=== PATIENT | female | born 2000 | race Caucasian/White ===

== ENCOUNTER 2023-01-21 11:29 | Emergency (ER) | payer OTHER, SELFPAY ==
[2023-01-21 11:42] VITALS: BP 116/69; PULSE 79; RESP 16; TEMP 36.9; O2SAT 99; BMI 20.2
--- NOTE | 2023-01-21 11:45 | ED.GENADUL1 ---
HPI - General Adult General Chief complaint: Abdominal Pain Stated complaint: FLANK PAIN Time Seen by Provider: 01/21/23 11:45 History of Present Illness HPI narrative: Patient presents to emergency department complaining of right suprapubic pain. Patient states pain started earlier today while she was at work. She had to work. She has a history of ovarian cysts are clear removed by Dr. Gold. Patient is on control. She states her last menses was 2 weeks ago. She denies any fever, chills. She states she was nauseated. She has not taking anything at home for the pain. Pain is sharp and does not radiate anywhere. She denies any diarrhea, constipation. She denies any hematuria, dysuria. She denies any vaginal bleeding, discharge. Related Data Home Medications Medication Instructions Recorded Confirmed No Known Home Medications 01/21/23 01/21/23 Allergies Allergy/AdvReac Type Severity Reaction Status Date / Time Penicillins Allergy Verified 01/21/23 11:42 Review of Systems ROS Status of ROS 10 or more systems reviewed and unremarkable except as noted in history and below [facility] Social History Smoking status: Never smoker Exam Narrative Exam Narrative: Nurses notes and vital signs reviewed and patient is not hypoxic. General: Nontoxic, Well-appearing and in no apparent distress. Skin: Warm, dry, no pallor noted. No Rash Head: Normocephalic, atraumatic. Neck: Supple, non-tender. Eye: Pupils are equal, round and EOMI. No scleral icterus. Ears, Nose, Mouth, and Throat: TM clear, no posterior oropharynx erythema or nasal mucosal hypertrophy, uvula is mid-line Oral mucosa is moist Cardiovascular: Regular Rate and Rhythm without murmur, gallop or rub. Respiratory: No accessory muscle use or respiratory distress. Lungs are clear to auscultation, no wheezing, rales or rhonchi Chest Wall: no tenderness Back: No midline thoracic or lumbar vertebral tenderness. No CVA tenderness Musculoskeletal: normal ROM, no calf or popliteal tenderness, no lower extremity edema/swelling GI: Abdomen is soft, non-distended. Normal bowel sounds. No masses appreciated. Right lower quadrant and suprapubic tenderness to palpation. No rebound, guarding, or rigidity noted. Neurological: A&O x4. No cranial nerve dysfunction observed. No truncal ataxia. Moves all extremities. Sensation intact. Psychiatric: Cooperative and interactive. Normal mood and affect. Constitutional Vital Signs, click to edit/add: Last Vital Signs Temp 98.5 F 01/21/23 11:42 Pulse 87 01/21/23 14:59 Resp 14 01/21/23 14:59 BP 117/66 01/21/23 14:59 Pulse Ox 98 01/21/23 14:59 O2 Del Method Room Air 01/21/23 14:59 Course Vital Signs Vital signs: Vital Signs Temperature 98.5 F 01/21/23 11:42 Pulse Rate 79 01/21/23 11:42 Respiratory Rate 16 01/21/23 11:42 Blood Pressure 116/69 01/21/23 11:42 Pulse Oximetry 99 01/21/23 11:42 Oxygen Delivery Method Room Air 01/21/23 11:42 Temperature 98.5 F 01/21/23 11:42 Pulse Rate 87 01/21/23 14:59 Respiratory Rate 14 01/21/23 14:59 Blood Pressure 117/66 01/21/23 14:59 Pulse Oximetry 98 01/21/23 14:59 Oxygen Delivery Method Room Air 01/21/23 14:59 Medical Decision Making MDM Narrative Medical decision making narrative: Patient's had an ultrasound of the pelvis did not show anything acute. Kidney ultrasound did not show anything acute. Patient was reevaluated and all results were discussed with patient she was still significantly tender to the right lower quadrant. Advised the patient that at this time since she still having a lot of pain would have to do a CAT scan to exclude appendicitis. Patient was with her mom on the phone to agrees with plan. Scan results were unremarkable except for small amount of fluid in the posterior pelvis. At this time the patient is without objective evidence of an acute process requiring hospitalization or inpatient management. The patient has remained hemodynamically stable. No additional indication for emergent studies at this time. I answered all questions. Discussed discharge instructions including standard anticipatory guidance and what should prompt a return to the emergency department, including if they get worse are not getting better or develops any new or concerning symptoms. I've given them specific time frame in which to follow-up, and who to follow-up with. The patient demonstrates understanding. Patient is nontoxic and stable for discharge with outpatient follow-up. This note was created with the assistance of a speech recognition program. Although the intention is to generate documents that actually reflects the content of the visit, no guarantees can be provided that every mistake has been identified and corrected by editing. Lab Data Lab results reviewed: Yes I reviewed the patient's lab results Labs: Lab Results 01/21/23 01/21/23 Range/Units 11:55 13:45 WBC 6.3 (4.0-11.0) 10^3/uL RBC 4.25 (4.20-5.40) 10^6/uL Hgb 13.4 (12.0-16.0) g/dL Hct 38.6 (36.0-48.0) % MCV 90.8 (81.0-99.0) fL MCH 31.5 (26.7-34.0) pg MCHC 34.7 (29.9-35.2) g/dL RDW 11.7 (11.0-15.0) % Plt Count 338 (150-450) 10^3/uL MPV 8.8 L (9.5-13.5) fL Neut % (Auto) 57.6 (43.0-75.0) % Lymph % (Auto) 27.7 (20.5-60.0) % Keith % (Auto) 7.8 (1.7-12.0) % Eos % (Auto) 6.2 (0.9-7.0) % Baso % (Auto) 0.5 (0.2-2.0) % Neut # (Auto) 3.6 (1.4-6.5) 10^3/uL Lymph # (Auto) 1.8 (1.2-3.8) 10^3/uL Keith # (Auto) 0.5 (0.3-0.8) 10^3/uL Eos # (Auto) 0.4 (0.0-0.7) 10^3/uL Baso # (Auto) 0.0 (0.0-0.1) 10^3/uL Abs Immat Gran (auto) 0.01 (0.00-0.03) 10^3/uL Imm/Tot Granulo (auto) 0.2 (0.0-0.5) % Sodium 139 (136-145) mmol/L Potassium 4.2 (3.5-5.1) mmol/L Chloride 104 (98-107) mmol/L Carbon Dioxide 27.3 (21.0-32.0) mmol/L Anion Gap 11.9 BUN 10.0 (7.0-18.0) mg/dL Creatinine 0.59 (0.55-1.02) mg/dL Est GFR ( Amer) >60 (>=60) Est GFR (Non-Af Amer) >60 (>=60) BUN/Creatinine Ratio 16.9 Glucose 87 (74-106) mg/dL Calcium 8.6 (8.5-10.1) mg/dL Total Bilirubin 0.6 (0.2-1.0) mg/dL AST 20 (15-37) U/L ALT 19 (14-59) U/L Alkaline Phosphatase 47 (46-116) U/L Total Protein 6.8 (6.4-8.2) g/dL Albumin 4.0 (3.4-5.0) g/dL Globulin 2.8 g/dL Albumin/Globulin Ratio 1.4 Urine Color Lt. yellow (YELLOW) Urine Clarity Clear (CLEAR) Urine pH 7.0 (5.0-9.0) Ur Specific [place] 1.010 (1.005-1.025) Urine Protein Negative (NEG/TRACE) mg/dL Urine Glucose (UA) Negative (NEGATIVE) mg/dL Urine Ketones Trace A (NEGATIVE) mg/dL Urine Occult Blood Negative (NEGATIVE) Urine Nitrite Negative (NEGATIVE) Urine Bilirubin Negative (NEGATIVE) Urine Urobilinogen 0.2 (0.2-1.0) EU/dL Ur Leukocyte Esterase Negative (NEGATIVE) Discharge Plan Discharge Chief Complaint: Abdominal Pain Clinical Impression: Ovarian cyst rupture, Abdominal pain Patient Disposition: Home, Self-Care Time of Disposition Decision: 14:43 Condition: Good Mode of Transportation: Private Vehicle Prescriptions / Home Meds: No Action No Known Home Medications Instructions: Ovarian Cyst (ED), Abdominal Pain (ED) Stand Alone Forms: Portal Instructions Referrals: Dmitri Gold DO [Physician] - 1 week Todd José MD [Primary Care Provider] - 1 week Discharge Date/Time: 01/21/23 15:06
--- NOTE | 2023-01-21 12:06 | US_ITS ---
The [address] [address] Patient Name: GONZALEZ SHANKAR MRN: [id number] date: 2000 Sex: F Assigned Patient Location: ED.MAIN Current Patient Location: ER Accession/Order Number: [id number] Exam Date: 01/21/2023 12:07 Report Date: 01/21/2023 13:05 At the request of: DEMARCO DON Procedure: US renal BI EXAMINATION: US renal BI HISTORY: flank pain COMPARISON: No relevant comparison available. TECHNIQUE: Ultrasound examination was performed of the kidneys and urinary bladder. FINDINGS: RIGHT KIDNEY: No evidence of pelvocaliectasis, mass, or calculi. Normal renal cortical parenchymal echogenicity. Color Doppler demonstrates blood flow within the kidney. Kidney: 10.3 x 4.3 x 3.7 cm LEFT KIDNEY: No evidence of pelvocaliectasis, mass, or calculi. Normal renal cortical parenchymal echogenicity. Color Doppler demonstrates blood flow within the kidney. Kidney: 10.2 x 4.4 x 4.3 cm BLADDER: No visible wall thickening, mass, or calculi. US/US renal BI IMPRESSION: 1. Normal ultrasound appearance of the kidneys and urinary bladder. Electronically authenticated by: SULY ANDERSON Date: 01/21/2023 13:05
--- NOTE | 2023-01-21 12:06 | US_ITS ---
[place] [id number] Patient Name: GONZALEZ SHANKAR MRN: [id number] date: 2000 Sex: F Assigned Patient Location: ED.MAIN Current Patient Location: ER Accession/Order Number: [id number] Exam Date: 01/21/2023 12:07 Report Date: 01/21/2023 13:07 At the request of: DEMARCO DON Procedure: US pelvis transvaginal EXAMINATION: US pelvis transvaginal HISTORY: rlq pain, ro torsion COMPARISON: No relevant comparison available. TECHNIQUE: Transabdominal and/or transvaginal sonographic examination was performed as indicated by examination type. FINDINGS: UTERUS: Normal size and appearance. Uterus size: 8.8 x 3.9 x 5.1 cm ENDOMETRIUM: Normal homogeneous appearance. Endometrial thickness: 5 mm RIGHT OVARY: Oophorectomy. LEFT OVARY: Normal size and appearance. Duplex Doppler demonstrates normal waveform and flow; resistive index 0.7. Normal venous flow, 3.5 mm/s. Ovary size: 2.5 x 2.4 x 2.1 cm CUL-DE-SAC: Unremarkable. No significant free fluid. BLADDER: Unremarkable. OTHER: None. US/US pelvis transvaginal IMPRESSION: 1. No acute or suspicious findings to account for patient's right lower quadrant symptoms. 2. No ovarian torsion. Electronically authenticated by: SULY ANDERSON Date: 01/21/2023 13:07
[2023-01-21 12:20] LABS: Basophils Percent Auto 0.5 % (0.2-2.0); Eosinophils Absolute Auto 0.4 10^3/uL (0.0-0.7); Eosinophils Percent Auto 6.2 % (0.9-7.0); Hematocrit 38.6 % (36.0-48.0); Hemoglobin 13.4 g/dL (12.0-16.0); Immature Granulocytes Abs Auto 0.01 10^3/uL (0.00-0.03); Immature Granulocytes Pct Auto 0.2 % (0.0-0.5); Lymphocytes Absolute Auto 1.8 10^3/uL (1.2-3.8); Lymphocytes Percent Auto 27.7 % (20.5-60.0); Mean Corpuscular HGB Conc 34.7 g/dL (29.9-35.2); Mean Corpuscular Hemoglobin 31.5 pg (26.7-34.0); Mean Corpuscular Volume 90.8 fL (81.0-99.0); Mean Platelet Volume 8.8 fL (9.5-13.5); Monocytes Absolute Auto 0.5 10^3/uL (0.3-0.8); Monocytes Percent Auto 7.8 % (1.7-12.0); Neutrophils Absolute Auto 3.6 10^3/uL (1.4-6.5); Neutrophils Percent Auto 57.6 % (43.0-75.0); Platelet Count 338 10^3/uL (150-450); Red Blood Count 4.25 10^6/uL (4.20-5.40); Red Cell Distribution Width 11.7 % (11.0-15.0); White Blood Count 6.3 10^3/uL (4.0-11.0)
[2023-01-21 12:24] LABS: Alanine Aminotransferase 19 U/L (14-59); Albumin Globulin Ratio 1.4; Alkaline Phosphatase 47 U/L (46-116); Anion Gap 11.9; Aspartate Amino Transferase 20 U/L (15-37); BUN Creatinine Ratio 16.9; Bilirubin Total 0.6 mg/dL (0.2-1.0); Calcium 8.6 mg/dL (8.5-10.1); Carbon Dioxide 27.3 mmol/L (21.0-32.0); Chloride 104 mmol/L (98-107); Estimated GFR (African America >60 (>=60); Estimated GFR (Non-African Ame >60 (>=60); Globulin 2.8 g/dL; Glucose 87 mg/dL (74-106); Potassium 4.2 mmol/L (3.5-5.1); Sodium 139 mmol/L (136-145); Total Protein 6.8 g/dL (6.4-8.2)
[2023-01-21] MEDS: 0.9 % SODIUM CHLORIDE 1,000 ML 999 ML IV (12:24)
--- NOTE | 2023-01-21 13:21 | CT_ITS ---
[address] [address] Patient Name: GONZALEZ SHANKAR MRN: [id number] date: 2000 Sex: F Assigned Patient Location: ER Current Patient Location: .[facility] Accession/Order Number: [id number] Exam Date: 01/21/2023 13:50 Report Date: 01/21/2023 14:29 At the request of: DEMARCO DON Procedure: CT abdomen pelvis w con EXAMINATION: CT abdomen pelvis w con HISTORY: rlq pain , flank pain COMPARISON: Ultrasound pelvis 01/21/2023, ultrasound kidneys 01/21/2023 TECHNIQUE: Axial, Coronal, and Sagittal images were obtained without and/or with IV contrast as indicated by examination type. Dose reduction techniques were achieved by using automated exposure control and/or adjustment of mA and/or kV according to patient size and/or use of iterative reconstruction technique. FINDINGS: LUNG BASES: No visible pulmonary or pleural disease. LIVER: No enlargement, atrophy, suspicious density, or significant focal lesion. BILIARY: No dilatation or calcification. PANCREAS: No lesion, fluid collection, or abnormal duct dilatation. SPLEEN: No enlargement or focal lesion. ADRENALS: No mass or enlargement. KIDNEYS: No mass, obstruction, or calcification. BOWEL/MESENTERY: No visible mass, obstruction, or bowel wall thickening. Normal appendix. AORTA/VASCULAR: No aneurysm or dissection. RETROPERITONEUM: No mass or adenopathy. LYMPH NODES: No adenopathy. URINARY BLADDER: No visible focal wall thickening, lesion, or calculus. PELVIC ORGANS: IUD within endometrial cavity. Trace amount simple appearing free fluid within right side of the pelvic cul-de-sac; likely physiologic. No visible mass. Pelvic organs appropriate for patient age. ABDOMINAL WALL: No mass or hernia. BONES: No bony lesion or fracture. OTHER: Negative. CT/CT abdomen pelvis w con IMPRESSION: 1.No acute or specific findings to account for patient's symptoms. 2.Normal appendix. Unremarkable bowel. 3.Trace amount of simple appearing free fluid within right side of the pelvic cul-de-sac; possibly recently ruptured ovarian cyst. Electronically authenticated by: SULY ANDERSON Date: 01/21/2023 14:29
[2023-01-21 14:52] LABS: Bilirubin Urine NEGATIVE (NEGATIVE); Blood Urine NEGATIVE (NEGATIVE); Clarity Urine CLEAR (CLEAR); Color Urine LT. YELLOW (YELLOW); Glucose Urine UA NEGATIVE (NEGATIVE); Ketones Urine TRACE mg/dL (NEGATIVE); Leukocyte Esterase Urine NEGATIVE (NEGATIVE); Nitrite Urine NEGATIVE (NEGATIVE); Protein Urine NEGATIVE (NEG/TRACE); Urobilinogen Urine 0.2 EU/dL (0.2-1.0)
[2023-01-21 14:53] LABS: Urine Microscopic Indicated NO
[2023-01-21 14:59] VITALS: BP 117/66; PULSE 87; RESP 14; O2SAT 98
== END 2023-01-21 15:06 | disposition home or self-care (01) ==
PROVIDERS: Emergency Provider Emergency Medicine; PCP Family Medicine
DX: R10.9 Unspecified abdominal pain (principal); N83.201 Unspecified ovarian cyst, right side
CPT/HCPCS: 36415; 74177; 76775; 76830; 80053; 81003; 85025; 99285; Q9967

== ENCOUNTER 2023-06-20 10:50 | Emergency (ER) | payer OTHER, SELFPAY ==
[2023-06-20 10:56] VITALS: BP 98/58; PULSE 79; RESP 18; TEMP 36.6; O2SAT 100
--- NOTE | 2023-06-20 11:28 | ECG_ITS ---
The [facility] Test Date: 2023-06-20 Pat Name: GONZALEZ SHANKAR Department: Room: - Gender: Female [employer]: : 2000 Requested By: DANILO DINERO Order Number: [id number] Reading MD: DANILO DINERO Measurements Intervals [place] Rate: 75 P: 72 KS: 128 QRS: 87 QRSD: 88 T: 40 QT: 378 QTc: 407 Interpretive Statements 1100 Sinus rhythm 1102 Sinus arrhythmia 9110 normal ECG Compared to ECG 05/12/2019 00:39:59 Right-axis deviation no longer present Electronically Signed On 06-21-2023 5:31:25 EST by DANILO DINERO
--- NOTE | 2023-06-20 11:31 | ED_ITS ---
HPI - Syncope General Chief Complaint: Syncope Stated Complaint: SYNCOPE Time Seen by Provider: 06/20/23 11:24 Source: patient Mode of arrival: ambulance Limitations: no limitations History of Present Illness HPI narrative: patient here for a syncopal episode at work. She says she felt fine when she went to work. This is not her 1st event. 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 However she's not been taking her meds because he didn't work and she's not been on them for several years. Normally she stays hydrated throughout the day with Gatorade but she did not take it to work today. Over the weekend she felt fine she's not had nausea vomiting diarrhea or upset stomach. 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 She did not have any incontinence to urine and did not bite her tongue today. She has not been confused. She is placed on a monitor and vital signs are noted. She says normally her blood pressure systolic is in the 80s or low 90s. She does not feel bad at this time. She's not had a headache any neck pain she didn't injure herself when she passed out at work. He is not on any new medications. She does take a vitamin for her hair and her fingernails. Related Data Home Medications Medication Instructions Recorded Confirmed No Known Home Medications 01/21/23 01/21/23 Allergies Allergy/AdvReac Type Severity Reaction Status Date / Time Penicillins Allergy Verified 01/21/23 11:42 [facility] Social History Smoking status: Never smoker Exam Narrative Exam Narrative: patient awake alert normal cognition and mental status. Does not appear ill vital signs are stable. Skin integument are normal with no petechiae purpura or rash or exanthem. I examination does not show any scleral icterus or pallor or evidence of anemia. Lungs are clear with no wheezes rales or rhonchi there is no respiratory distress or cough or congestion. Heart sounds are normal with no clicks rubs gallops or murmur. Extremities show no evidence of swelling edema phlebitis or tenderness. Abdominal examination soft and supple she has no guarding rebound rigidity and has no abdominal discomfort. Constitutional Vital Signs, click to edit/add: Last Vital Signs Temp 97.8 F 06/20/23 10:56 Pulse 78 06/20/23 12:15 Resp 18 06/20/23 10:56 BP 96/56 06/20/23 12:15 Pulse Ox 100 06/20/23 10:56 O2 Del Method Room Air 06/20/23 10:56 Course Vital Signs Vital signs: Vital Signs Temperature 97.8 F 06/20/23 10:56 Pulse Rate 79 06/20/23 10:56 Respiratory Rate 18 06/20/23 10:56 Blood Pressure 98/58 06/20/23 10:56 Pulse Oximetry 100 06/20/23 10:56 Oxygen Delivery Method Room Air 06/20/23 10:56 Temperature 97.8 F 06/20/23 10:56 Pulse Rate 78 06/20/23 12:15 Respiratory Rate 18 06/20/23 10:56 Blood Pressure 96/56 06/20/23 12:15 Pulse Oximetry 100 06/20/23 10:56 Oxygen Delivery Method Room Air 06/20/23 10:56 MDM - Syncope MDM Narrative Medical decision making narrative: patient remained stable while here in the Emergency Room. Before discharge orthostatic vital signs were done and were normal. I do not believe she needs an y laboratory testing at this time. Her clinical examination was normal. She did take by mouth fluids. Discharge Plan Discharge Chief Complaint: Syncope Clinical Impression: Chronic orthostatic hypotension Patient Disposition: Home, Self-Care Time of Disposition Decision: 12:17 Prescriptions / Home Meds: No Action No Known Home Medications Additional Instructions: continue to take additional fluids today. Stand Alone Forms: Portal Instructions Referrals: Todd José MD [Primary Care Provider] - 1 week
[2023-06-20 12:15] VITALS: BP 100/64; BP 102/59; BP 96/56; PULSE 71; PULSE 78; PULSE 80
== END 2023-06-20 12:30 | disposition home or self-care (01) ==
PROVIDERS: Emergency Provider Emergency Medicine Emergency Medical Services; PCP Family Medicine
DX: I95.1 Orthostatic hypotension (principal)
CPT/HCPCS: 93005; 99283

== ENCOUNTER 2023-06-24 17:56 | Emergency (ER) | payer OTHER, SELFPAY ==
--- OUTSIDE RECORDS SUMMARY | 2023-06-24 18:02 | XMS_ITS | CCD ---
Author Name Unknown Address [address] [place] [address] Organization [facility] Care Team Providers Care Respiratory Therapy Technician Name Role Phone Danilo Dinero MD Primary Care Provider [phone] ESTUARDO CARTER Attending Unavailable DANILO DINERO Primary Care Unavailable ROSETTE ., DR CARRASCO Admitting Unavailable HOY ., DR CARRASCO Attending Unavailable HOY ., DR CARRASCO Primary Care Unavailable HOY ., DR CARRASCO Consulting Unavailable TITO ., DR TEJEDA Admitting Unavailable TITO ., DR TEJEDA Attending Unavailable HOY ., DR CARRASCO Primary Care Unavailable TITO ., DR TEJEDA Consulting Unavailable TITO ., DR TEJEDA Admitting Unavailable TITO ., DR TEJEDA Attending Unavailable HOY ., DR CARRASCO Primary Care Unavailable UNION, DR KRISTEN Bonilla Consulting Unavailable TITO ., DR TEJEDA Consulting Unavailable TITO ., DR TEJEDA Admitting Unavailable TITO ., DR TEJEDA Attending Unavailable HOY ., DR CARRASCO Primary Care Unavailable TITO ., DR TEJEDA Consulting Unavailable ZIEBER, DR SULY Salinas Consulting Unavailable TITO ., DR TEJEDA Admitting Unavailable TITO ., DR TEJEDA Attending Unavailable HOY ., DR CARRASCO Primary Care Unavailable TITO ., DR TEJEDA Consulting Unavailable HOY ., DR CARRASCO Primary Care Unavailable SANDRA, DR GREYSON Joy Admitting Unavailabl e SANDRA, DR GREYSON Joy Attending Unavailabl e SANDRA, DR GREYSON Joy Consulting Unavailabl erick HOFFMANN, DR KRISTEN Bonilla Consulting Unavailable TITO ., DR TEJEDA Admitting Unavailable TITO ., DR TEJEDA Attending Unavailable HOY ., DR CARRASCO Primary Care Unavailable TITO ., DR TEJEDA Consulting Unavailable TITO ., DR TEJEDA Admitting Unavailable DR DMITRI CINTRON Attending Unavailable ROSETTE ., DR CARRASCO Primary Care Unavailable DR DMITRI CINTRON Consulting Unavailable CAN PEÑA Consulting Unavailable LEÓN QUINTANA Consulting Unavailable Allergies Allergy Classification Reported Allergen(s) Allergy Type Date of Onset Reaction(s) Facility (1 source) Penicillin Drug Allergy [facility] Repository Medications Current Medications Medication Drug Class(es) Dates Sig (Normalized) Sig (Original) acetaminophen 325 mg / HYDROcodone bitartrate 5 mg oral tablet (1 source) Opioid Agonist Start: 10-10-2020 End: 10-13-2020 HYDROcodone-acetam inophen (NORCO) 5-325 MG per tablet Indications: Post-op pain Take 1 tablet by mouth every 4 hours as needed for Pain for up to 3 days. Intended supply: 3 days. Take lowest dose possible to manage pain 12 tablet 0 10/10/2020 10/13/2020 Active calcium chloride 0.0014 meq/ml / potassium chloride 0.004 meq/ml / sodium chloride 0.103 meq/ml / sodium lactate 0.028 meq/ml injectable solution (1 source) Start: 10-10-2020 lactated ringers infusion 2 ml fentaNYL 0.05 mg/ml injection (4 sources) Opioid Agonist Start: 10-10-2020 fentaNYL (SUBLIMAZE) injection 50 mcg Start: 10-10-2020 fentaNYL (SUBL IMAZE) injection 25 mcg ketorolac tromethamine 10 mg oral tablet (1 source) Nonsteroidal Anti-inflammatory Drug, Cyclooxygenase Inhibitor Start: 10-10-2020 take 1 tablet by mouth every six hours as needed for pain ketorolac (TORADOL) 10 MG tablet Take 1 tablet by mouth every 6 hours as needed for Pain 12 tablet 0 10/10/2020 Active 72 hr scopolamine 0.0139 mg/hr transdermal system (1 source) Anticholinergic Start: 10-10-2020 scopolamine (TRANSDERM-SCOP) transdermal patch 1 patch Completed/Discontinued Medications Medication Drug Class(es) Dates Sig (Normalized) Sig (Original) iopamidol (ISOVUE-370) 76 % injection 75 mL (1 source) Start: 10-10-2020 End: 10-10-2020 iopamidol (ISOVUE-370) 76 % injection 75 mL 2 ml prochlorperazine 5 mg/ml injection (1 source) Phenothiazine Start: 10-10-2020 End: 10-10-2020 prochlorperazine (COMPAZINE) injection 5 mg Problems Active Problems Problem Classification Problem Date Documented Date Episodic/Chronic Abdominal pain (11 sources) Flank pain; Translations: [Unspecified abdominal pain] Onset: 06-11-2022 Episodic Immunizations and screening for infectious disease (5 sources) Contact with and (suspected) exposure to infections with a predominantly sexual mode of transmission; Translations: [Encounter for screening for human papillomavirus (HPV)] Onset: 03-05-2022 Episodic Inflammatory diseases of female pelvic organs (1 source) 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 adhesions (postinfective); Translations: [FE PELV PERITON ADHES POSTINFECTIVE] Onset: 07-08-2022 Episodic Other and unspecified benign neoplasm (1 source) Mature cystic teratoma of right ovary; Translations: [Benign neoplasm of right ovary] Episodic Other nervous system disorders (1 source) Postoperative pain ; Translations: [Other acute postprocedural pain] Episodic Ovarian cyst (7 sources) Cyst of right ovary; Translations: [Unspecified ovarian cyst, right side] Onset: 06-16-2022 Episodic Unclassified (3 sources) CONTACT W/AND (SUSP) EXPOS COVID-19; Translations: [CONTACT W/AND (SUSP) EXPOS COVID-19] Onset: 01-20-2022 Viral infection (1 source) COVID-19; Translations: [COVID-19] Onset: 01-20-2022 Past or Other Problems Problem Classification Problem Date Documented Date Episodic/Chronic Contraceptive and procreative management (1 source) Presence of (intrauterine) contraceptive device; Translations: [PRESENCE IU CONTRACEPT DEVICE] Onset: 05-15-2022 Episodic Other screening for suspected conditions (not mental disorders or infectious disease) (4 sources) Encounter for screening for malignant neoplasm of cervix; Translations: [ENC SCREENING MALIG NEOPLASM CERV] Onset: 03-04-2022 Episodic Other upper respiratory infections (1 source) Acute sinusitis, unspecified; Translations: [ACUTE SINUSITIS UNSPECIFIED] Onset: 01-20-2022 Episodic Unclassified (1 source) CONTACT W/AND (SUSP) EXPOS COVID-19; Translations: [CONTACT W/AND (SUSP) EXPOS COVID-19] Onset: 01-18-2022 Results Test Name Value Interpretation Reference Range Facility CHLAMYDIA , NISSERIA, VAGINA LIS NAAon 08-19-2022 Chlamydia by HALLEY Negative Normal Negative [facility] Comment on above: Performed By: #### C TVNGNA ####[facility] [address] [place] [address]DrGrayson Severino Gonococcus by HALLEY Negative Normal Negative [facility] Comment on above: Performed By: #### C TVNGNA ####[facility] [address] [place] [address]DrGrayson Severino Trich vag by HALLEY Negative Normal Negative [facility] Comment on above: Performed By: #### C TVNGNA ####[facility] [address] [place] [address]DrGrayson Severino CBC AUTO DIFFon 07-02-2022 BASO # 0.0 103/ul Normal 0.0-0.1 [facility] Comment on above: Performed By: #### C BC #### [facility] [address] [address] [address] Swapna Severino Basophils/100 WBC (Bld) 0.6 % Normal 0.2-2.0 [facility] Comment on above: Performed By: #### C BC #### [facility] [address] [address] [address] Swapna Severino EO # 0.4 103/ul Normal 0.0-0.7 [facility] Comment on above: Performed By: #### C BC #### [facility] [address] [address] [address] Swapna Severino Eosinophils/100 WBC (Bld) 6.3 % Normal 0.9-7.0 [facility] Comment on above: Performed By: #### C BC #### [facility] [address] [address] [address] Swapna Severino Erythrocyte distribution width (RBC) [Ratio] 11.9 % Normal 11.0-15.0 [facility] Comment on above: Performed By: #### C BC #### [facility] [address] [address] [address] Swapna Severino Hematocrit (Bld) [Volume fraction] 39.8 % Normal 36.0-48.0 [facility] Comment on above: Performed By: #### C BC #### [facility] [address] [place] [address] Dr. Swapna Severino Hemoglobin (Bld) [Mass/Vol] 13.9 g/dL Normal 12.0-16.0 [facility] Comment on above: Performed By: #### C BC #### [facility] [address] [place] [address] Dr. Swapna Severino IG # 0.01 10e3/ul Normal 0.00-0.03 [facility] Comment on above: Performed By: #### C BC #### [facility] [address] [place] [address] Dr. Swapna Severino IG % 0.2 % Normal 0.0-0.5 [facility] Comment on above: Performed By: #### C BC #### [facility] [address] [place] [address] Dr. Swapna Severino LYMPH # 2.4 103/ul Normal 1.2-3.8 [facility] Comment on above: Performed By: #### C BC #### [facility] [address] [place] [address] Dr. Swapna Severino Lymphocytes/100 WBC (Bld) 37.4 % Normal 20.5-60.0 [facility] Comment on above: Performed By: #### C BC #### [facility] [address] [place] [address] Dr. Swapna Severino MANUAL DIFF REQ NO Normal [facility] Comment on above: Performed By: #### C BC #### [facility] [address] [place] [address] Dr. Swapna Severino MCH (RBC) [Entitic mass] 31.0 pg Normal 26.7-34.0 [facility] Comment on above: Performed By: #### C BC #### [facility] [address] [place] [address] Dr. Swapna Severino MCHC (RBC) [Mass/Vol] 34.9 g/dL Normal 29.9-35.2 [facility] Comment on above: Performed By: #### C BC #### [facility] [address] [place] [address] Dr. Swapna Severino MCV (RBC) [Entitic vol] 88.6 fL Normal 81.0-99.0 [facility] Comment on above: Performed By: #### C BC #### [facility] [address] [place] [address] Dr. Swapna Severino MONO # 0.6 103/ul Normal 0.3-0.8 [facility] Comment on above: Performed By: #### C BC #### [facility] [address] [place] [address] Dr. Swapna Severino Monocytes/100 WBC (Bld) 8.5 % Normal 1.7-12.0 [facility] Comment on above: Performed By: #### C BC #### [facility] [address] [place] [address] Dr. Swapna Severino NEUT # 3.1 103/ul Normal 1.4-6.5 [facility] Comment on above: Performed By: #### C BC #### [facility] [address] [place] [address] Dr. Swapna Severino Neutrophils/100 WBC (Bld) 47.0 % Normal 43.0-75.0 [facility] Comment on above: Performed By: #### C BC #### [facility] [address] [place] [address] Dr. Swapna Severino Platelet mean volume (Bld) [Entitic vol] 8.5 fL Critically low 9.5-13.5 [facility] Comment on above: Performed By: #### C BC #### [facility] [address] [place] [address] Dr. Swapna Severino PLT 363 103/ul Normal 150-450 [facility] Comment on above: Performed By: #### C BC #### [facility] [address] [place] [address] Dr. Swapna Severino RBC 4.49 106/ul Normal 4.20-5.40 [facility] Comment on above: Performed By: #### C BC #### [facility] [address] [place], [place] [address] Dr. Swapna Severino WBC 6.5 103/ul Normal 4.0-11.0 [facility] Comment on above: Performed By: #### C BC #### [facility] [address] [place], [place] [address] Dr. Swapna Severino CYTOLOGYon 07-02-2022 SENT TO REF LAB 07/02/2022 Normal [facility] Comment on above: Performed By: #### C YTO ####[facility] [address] [place], [place] [address]MhDr. Swapna Severino PREG HCG QUALon 07-02-2022 , QUAL Negative Normal NEGATIVE [facility] Comment on above: Performed By: #### P REG #### [facility] [address] [address] [address] Swapna Severino Covid-19 PCR (CVDTBH)on 06-13 SARS-CoV-2 (COVID-19) RNA HALLEY+probe Ql (Unsp spec) Not detected Normal NOT DETECTED [facility] Comment on above: Result Comment: This test is not yet approved or cleared by the [place] FDA. When there are no FDA-approved or cleared tests available, and other criteria are met, FDA can make tests available under an emergency access mechanism called an Emergency Use Authorization (EUA). The EUA for this test is supported by the Veterinary Nurse of Health and Human Service's (HHS's) declaration that circumstances exist to justify the emergency use of in vitro diagnostics for the detection and/or diagnosis of the virus that causes COVID-19. This EUA will remain in effect (meaning this test can be used) for the duration of the COVID-19 declaration justifying emergency of IVDs, unless it is terminated or revoked by FDA (after which the test may no longer be used). When diagnostic testing is negative, the possibility of a false negative should be considered in the context of a patient's recent exposures and the presence of clinical signs and symptoms consistent with SARS-CoV-2. Performed By: #### C VDTBH #### [facility] [address] [address] [address] Swapna Severino US PELVIS AND TRANSVAGon US PELVIS AND TRANSVAG EXAMINATION: US PELVIS AND TRANSVAG HISTORY: Cyst of left ovary COMPARISON: Ultrasound pelvis 06/11/2022 TECHNIQUE: Transabdominal and transvaginal sonographic examination. FINDINGS: UTERUS: Normal size and appearance. Uterus size: 8.9 x 5.5 x 4.2 cm ENDOMETRIUM: IUD within endometrial cavity. Endometrial thickness: 7 mm RIGHT OVARY: Prior oophorectomy. LEFT OVARY: Contains an anechoic simple appearing 2.7 cm cyst. Trace amount of free fluid adjacent the ovary. Duplex Doppler demonstrates normal waveform and flow; resistive index 0.4. Ovary size: 4.0 x 3.6 x 2.9 cm CUL-DE-SAC: Unremarkable. BLADDER: Unremarkable. OTHER: None. IMPRESSION: 1. Interval increase in size of the benign-appearing cyst within the left ovary. New, trace amount of free fluid adjacent the left ovary may indicate rupture of the cyst. Electronically authenticated by: SULY ANDERSON Date: 2022-06-17 07:48 Normal [facility] CBC AUTO DIFFon 06-11-2022 BASO # 0.0 103/ul Normal 0.0-0.1 [facility] Comment on above: Performed By: #### C BC #### [facility] [address] [place] [address] Dr. Swapna Severino Basophils/100 WBC (Bld) 0.5 % Normal 0.2-2.0 [facility] Comment on above: Performed By: #### C BC #### [facility] [address] [address] [address] Swapna Severino EO # 0.4 103/ul Normal 0.0-0.7 [facility] Comment on above: Performed By: #### C BC #### [facility] [address] [address] [address] Swapna Severino Eosinophils/100 WBC (Bld) 6.8 % Normal 0.9-7.0 [facility] Comment on above: Performed By: #### C BC #### [facility] [address] [place] [address] Dr. Swapna Severino Erythrocyte distribution width (RBC) [Ratio] 11.9 % Normal 11.0-15.0 [facility] Comment on above: Performed By: #### C BC #### [facility] [address] [place] [address] Dr. Swapna Severino Hematocrit (Bld) [Volume fraction] 38.0 % Normal 36.0-48.0 [facility] Comment on above: Performed By: #### C BC #### [facility] [address] [place] [address] Dr. Swapna Severino Hemoglobin (Bld) [Mass/Vol] 13.2 g/dL Normal 12.0-16.0 [facility] Comment on above: Performed By: #### C BC #### [facility] [address] [place] [address] Dr. Swapna Severino IG # 0.01 10e3/ul Normal 0.00-0.03 [facility] Comment on above: Performed By: #### C BC #### [facility] [address] [place] [address] Dr. Swapna Severino IG % 0.2 % Normal 0.0-0.5 [facility] Comment on above: Performed By: #### C BC #### [facility] [address] [place] [address] Dr. Swapna Severino LYMPH # 1.7 103/ul Normal 1.2-3.8 [facility] Comment on above: Performed By: #### C BC #### [facility] [address] [place] [address] Dr. Swapna Severino Lymphocytes/100 WBC (Bld) 26.9 % Normal 20.5-60.0 [facility] Comment on above: Performed By: #### C BC #### [facility] [address] [place] [address] Dr. Swapna Severino MANUAL DIFF REQ NO Normal [facility] Comment on above: Performed By: #### C BC #### [facility] [address] [place] [address] Dr. Swapna Severino MCH (RBC) [Entitic mass] 31.4 pg Normal 26.7-34.0 [facility] Comment on above: Performed By: #### C BC #### [facility] [address] [place] [address] Dr. Swapna Severino MCHC (RBC) [Mass/Vol] 34.7 g/dL Normal 29.9-35.2 [facility] Comment on above: Performed By: #### C BC #### [facility] [address] [place] [address] Dr. Swapna Severino MCV (RBC) [Entitic vol] 90.3 fL Normal 81.0-99.0 [facility] Comment on above: Performed By: #### C BC #### [facility] [address] [place] [address] Dr. Swapna Severino MONO # 0.5 103/ul Normal 0.3-0.8 [facility] Comment on above: Performed By: #### C BC #### [facility] [address] [place] [address] Dr. Swapna Severino Monocytes/100 WBC (Bld) 7.9 % Normal 1.7-12.0 [facility] Comment on above: Performed By: #### C BC #### [facility] [address] [place] [address] Dr. Swapna Severino NEUT # 3.6 103/ul Normal 1.4-6.5 [facility] Comment on above: Performed By: #### C BC #### [facility] [address] [place] [address] Dr. Swapna Severino Neutrophils/100 WBC (Bld) 57.7 % Normal 43.0-75.0 [facility] Comment on above: Performed By: #### C BC #### [facility] [address] [place] [address] Dr. Swapna Severino Platelet mean volume (Bld) [Entitic vol] 8.6 fL Critically low 9.5-13.5 [facility] Comment on above: Performed By: #### C BC #### [facility] [address] [place] [address] Dr. Swapna Severino PLT 333 103/ul Normal 150-450 [facility] Comment on above: Performed By: #### C BC #### [facility] [address] [place] [address] Dr. Swapna Severino RBC 4.21 106/ul Normal 4.20-5.40 [facility] Comment on above: Performed By: #### C BC #### [facility] [address] [place] [address] Dr. Swapna Severino WBC 6.2 103/ul Normal 4.0-11.0 [facility] Comment on above: Performed By: #### C BC #### [facility] [address] [place] [address] Dr. Swapna Severino ER URINE PROFILEon 2 Bilirubin Ql (U) Negative Normal NEGATIVE [facility] Comment on above: Performed By: #### P REGU, ERUR #### [facility] [address] [place] [address] Dr. Swapna Severino Clarity (U) CLEAR Normal CLEAR [facility] Comment on above: Performed By: #### P REGU, ERUR #### [facility] [address] [place] [address] Dr. Swapna Severino Color (U) LT. YELLOW Normal YELLOW [facility] Comment on above: Performed By: #### P REGU, ERUR #### [facility] [address] [place] [address] Dr. Swapna LEDEZMA A micrscopic examination will be performed if indicated. Normal [facility] Comment on above: Performed By: #### P REGU, ERUR #### [facility] [address] [place] [address] Dr. Swapna Severino Glucose Ql (U) Negative Normal NEGATIVE [facility] Comment on above: Performed By: #### P REGU, ERUR #### [facility] [address] [place] [address] Dr. Swapna Severino Hemoglobin Ql (U) Negative Normal NEGATIVE [facility] Comment on above: Performed By: #### P REGU, ERUR #### [facility] [address] [address] [address] Swapna Severino Ketones Ql (U) Negative Normal NEGATIVE [facility] Comment on above: Performed By: #### P REGU, ERUR #### [facility] [address] [address] [address] Swapna Severino LEUKOCYTES Negative Normal NEGATIVE [facility] Comment on above: Performed By: #### P REGU, ERUR #### [facility] [address] [address] [address] Swapna Severino Nitrite Ql (U) Negative Normal NEGATIVE [facility] Comment on above: Performed By: #### P REGU, ERUR #### [facility] [address] [place] [address] Dr. Swapna Severino pH (U) 6.5 [pH] Normal 5-9 [facility] Comment on above: Performed By: #### P REGU, ERUR #### [facility] [address] [place] [address] Dr. Swapna Severino SPEC GRAVITY 1.015 Normal 1.005-<=1.02 5 [facility] Comment on above: Performed By: #### P REGU, ERUR #### [facility] [address] [place] [address] Dr. Swapna Severino UA PROTEIN Negative Normal NEGATIVE/ TRACE [facility] Comment on above: Performed By: #### P REGU, ERUR #### [facility] [address] [address] [address] Swapna Severino UR MICRO IND NOT INDICATED Normal [facility] Comment on above: Performed By: #### P REGU, ERUR #### [facility] [address] [address] [address] Swapna Severino Urobilinogen Qn (U) 0.2 {Arpan'U}/dL Normal 0.2 - 1. 0 [facility] Comment on above: Performed By: #### P REGU, ERUR #### [facility] [address] [place] [address] Dr. Swapna Severino URon 12-30-2022 , QUAL Negative Normal NEGATIVE [facility] Comment on above: Performed By: #### P REGU, ERUR #### [facility] [address] [place], [place] [address] Dr. Swapna Seevrino PROF CHEM 8 (BAS METB)on Anion gap [Moles/Vol] 9.2 mmol/L Normal [facility] Comment on above: Performed By: #### B MP ####[facility] [address] [place] [address]Dr. Swapna Severino Calcium [Mass/Vol] 8.7 mg/dL Normal 8.5-10.1 [facility] Comment on above: Performed By: #### B MP ####[facility] [address] [place] [address]Dr. Swapna Severino Chloride [Moles/Vol] 103 mmol/L Normal 98-107 [facility] Comment on above: Performed By: #### B MP ####[facility] [address] [address]Dr. Swapna Severino CO2 [Moles/Vol] 31.1 mmol/L Normal 21.0-32.[address] [facility] Comment on above: Performed By: #### B MP ####[facility] [address] [place] [id number]. Swapna Severino Creatinine [Mass/Vol] 0.55 mg/dL Normal 0.55-1.02 [facility] Comment on above: Performed By: #### B MP ####[facility] [address] [id number]. Swapna Severino EGFR-AF SAUDI ARABIAN >60 Normal >=[address] [facility] Comment on above: Performed By: #### B MP ####[facility] [address] [place] [id number]. Swapna Severino EGFR-NON AF SAUDI ARABIAN >60 Normal >=60 [facility] Comment on above: Performed By: #### B MP ####[facility] [address] [place] [address]Dr. Swapna Severino Glucose [Mass/Vol] 79 mg/dL Normal 74-106 [facility] Comment on above: Performed By: #### B MP ####[facility] [address] [place] [address]Dr. Swapna Severino Potassium [Moles/Vol] 4.3 mmol/L Normal 3.5-5.1 [facility] Comment on above: Performed By: #### B MP ####[facility] [address] [place] [address]Dr. Swapna Severino Sodium [Moles/Vol] 139 mmol/L Normal 136-145 [facility] Comment on above: Performed By: #### B MP ####[facility] [address] [place] [address]Dr. Swapna Severino Urea nitrogen [Mass/Vol] 8.0 mg/dL Normal 7.0-18.0 [facility] Comment on above: Performed By: #### B MP ####[facility] [address] [place] [address]Dr. Swapna Severino Urea nitrogen/Creatinine [Mass ratio] 14.5 mg/mg Normal [facility] Comment on above: Performed By: #### B MP ####[facility] [address] [place], [place] [address]Dr. Swapna Severino US PELVIS TRANSVAGon 022 US PELVIS TRANSVAG EXAMINATION: US PELVIS TRANSVAG HISTORY: Lower abdominal pain COMPARISON: 05/11/2022 FINDINGS: The uterus is normal in size, contour and echotexture measuring 8.9 x 4.5 x 3.2 cm, anteverted. No focal myometrial mass The endometrium measures 7.3 mm, normal. Linear echogenicity within the endometrial cavity, normally positioned IUD The right ovary isn't visualized The left ovary is normal in size measuring 3.7 x 2.3 x 2.2 cm. Area of anechoic echogenicity measuring 1.7 cm, cyst versus follicle. Normal color Doppler flow. No free fluid IMPRESSION: Normally positioned IUD 4.7 cm left ovarian cyst/follicle Electronically authenticated by: KRISTEN HOFFMANN Date: 2022-06-11 12:44 Normal [facility] US PELVIS AND TRANSVAGon US PELVIS AND TRANSVAG EXAMINATION: US PELVIS AND TRANSVAG HISTORY: Pelvic and perineal pain COMPARISON: No relevant comparison available. FINDINGS: Transabdominal and transvaginal images The uterus is normal in size, contour and myometrial echotexture with no focal mass. The uterus measures 8.1 x 3.6 x 5.5 cm, anteverted. The endometrium measures 3.2 mm, normal. Linear hyperechogenicity within the endometrial cavity with acoustic shadowing, IUD The right ovary is normal in appearance measuring 2.2 x 2.0 x 2.6 cm. Normal color and Doppler flow The left ovary is normal in appearance measuring 2.5 x 2.6 x 2.3 cm. Normal color and Doppler flow No free fluid IMPRESSION: Normal position of the IUD Electronically authenticated by: KRISTEN HOFFMANN Date: 2022-05-11 14:02 [facility] PAP ACOG PANEL 2: 21 to 29on 03-12-2022 . . Normal [facility] Comment on above: Performed By: #### [id number] #### [facility] [address] [place] [address] Dr. Swapna Severino Age Gdln ACOG Testing [facility] Comment on above: Performed By: #### [id number] #### [facility] [address] [place] [address] Dr. Swapna Severino DIAGNOSIS: Comment [facility] Comment on above: Result Comment: NEGA TIVE FOR INTRAEPITHELIAL LESION OR MALIGNANCY. Performed By: #### [id number] #### [facility] [address] [place] [address] Dr. Swapna Severino Methodology: Comment [facility] Comment on above: Result Comment: This liquid based ThinPrep(R) pap test was screened with the use of an image guided system. Performed By: #### [id number] #### [facility] [address] [place] [address] Dr. Swapna Severino Note: Comment [facility] Comment on above: Result Comment: The Pap smear is a screening test designed to aid in the detection of premalignant and malignant conditions of the uterine cervix. It is not a diagnostic procedure and should not be used as the sole means of detecting cervical cancer. Both false-positive and false-negative reports do occur. . Performed By: #### [id number] #### [facility] [address] [place] [address] Dr. Swapna Severino Performed by: Comment Normal [facility] Comment on above: Result Comment: Kathy Bland Spool Cleaner (ASCP) Performed By: #### [id number] #### [facility] [address] [place] [address] Dr. Swapna Severino Reflex Criteria: Comment Normal [facility] Comment on above: Result Comment: The HPV DNA reflex criteria were not met with this specimen result therefore, no HPV testing was performed. . Performed By: #### [id number] #### [facility] [address] [place] [address] Dr. Swapna Severino Specimen adequacy: Comment Normal [facility] Comment on above: Result Comment: Sati sfactory for evaluation. Endocervical and/or squamous metaplastic cells (endocervical component) are present. Performed By: #### [id number] #### [facility] [address] [place] [address] Dr. Swapna Severino Covid-19 PCR (CVDTB)on SARS-CoV-2 (COVID-19) RNA HALLEY+probe Ql (Unsp spec) Detected Critically abnormal NOT DETECTED [facility] Comment on above: Result Comment: This test is not yet approved or cleared by the [place] FDA. When there are no FDA-approved or cleared tests available, and other criteria are met, FDA can make tests available under an emergency access mechanism called an Emergency Use Authorization (EUA). The EUA for this test is supported by the [place] of Health and Human Service's (HHS's) declaration that circumstances exist to justify the emergency use of in vitro diagnostics for the detection and/or diagnosis of the virus that causes COVID-19. This EUA will remain in effect (meaning this test can be used) for the duration of the COVID-19 declaration justifying emergency of IVDs, unless it is terminated or revoked by FDA (after which the test may no longer be used). Performed By: #### C VDTB #### [facility] [address] [address] [address] Swapna Severino CBC auto differentialOrdered By: Estuardo Carter on 10-10-2020 Absolute Eos # 0.19 [facility] Work Phone: Absolute Immature Granulocyte <0.03 [employer] Work Phone: Absolute Lymph # 1.98 Write.my [facility] Work Phone: Absolute [place] # 0.[address] [facility] Work Phone: Basophils (Bld) [#/Vol] 0.03 10*3/uL [employer] Phone: Basophils/100 WBC (Bld) 1 % 0 - 2 % [facility] Phone: Differential Type NOT REPORTED [employer] Phone: Eosinophils/100 WBC (Bld) 3 % 1 - 4 % [employer] Phone: Hematocrit (Bld) [Volume fraction] 40.1 % 36.3 - 47.1 % [employer] Phone: Hemoglobin.gastrointest inal spec 1 Ql (Stl) 13.8 g/dL 11.9 - 15.1 g/dL [employer] Phone: Immature granulocytes/100 WBC (Bld) 0 % 0 [employer] Phone: Interpretation and review of laboratory results Abnormal [employer] Phone: Lymphocytes/100 WBC (Bld) 32 % 25 - 45 % [employer] Phone: MCH (RBC) [Entitic mass] 31.4 pg 25.2 - 33.5 pg [employer] Phone: MCHC (RBC) [Mass/Vol] 34.4 g/dL 28.4 - 34.8 g/dL ZAINA PHARMA: MCV (RBC) [Entitic vol] 91.1 fL 82.6 - 102.9 fL [employer] Phone: Monocytes/100 WBC (Bld) 7 % 2 - 8 % M [facility] [place] [employer] Work Phone: NRBC Automated 0.0 0.[address] [facility] Phone: Platelet distribution width (Bld) [Ratio] 11.4 % Low 11.8 - 14.4 % [facility] Phone: Platelet Estimate NOT REPORTED [facility] Phone: Platelet mean volume (Bld) [Entitic vol] 8.4 fL 8.1 - 13.5 fL [employer] Phone: Platelets (Bld) [#/Vol] 365 10*3/uL [facility] Phone: RBC (Bld) [#/Vol] 4.40 10*6/uL 3.95 - 5.1 1 m/uL [facility] Phone: RBC (Bld) [#/Vol] NOT REPORTED [employer] Phone: Segmented neutrophils/100 WBC (Bld) 57 % 34 - 64 % [employer] Phone: Segs Absolute 3.56 [facility] Work Phone: WBC (Bld) [#/Vol] 6.2 10*3/uL [facility] Phone: WBC (Bld) [#/Vol] NOT REPORTED [facility] Phone: CBC with Diffon 10-10-2020 Abs. Basophil 0.03 k/uL Normal 0.00-0.20 [facility] Comment on above: Performed By: #### S ED, CDP, CP, HCG #### [facility] [address] [place] [address] Data Clerk: Kristen Howe MD Abs.Imm.Granulocyte <0.03 Normal 0.00-0.30 [facility] Comment on above: Performed By: #### S ED, CDP, CP, HCG #### [address] [place] [address] Data Clerk: Kristen Howe MD Abs.Neutrophil (Seg) 3.56 k/uL Normal 1.80-8.00 [facility] Comment on above: Performed By: #### S ED, CDP, CP, HCG #### [address] [place] [address] Data Clerk: Kristen Howe MD Basophils/100 WBC (Bld) 1 % Normal 0-2 [facility] Comment on above: Performed By: #### S ED, CDP, CP, HCG #### [address] [place] [address] Data Clerk: Kristen Howe MD Eosinophils (Bld) [#/Vol] 0.19 10*3/uL Normal 0.00-0.44 [facility] Comment on above: Performed By: #### S ED, CDP, CP, HCG #### [address] [place] [address] Data Clerk: Kristen Howe MD Eosinophils/100 WBC (Bld) 3 % Normal 1-4 [facility] Comment on above: Performed By: #### S ED, CDP, CP, HCG #### [address] [place] [id number] Data Clerk: Kristen Howe MD Erythrocyte distribution width (RBC) [Ratio] 11.4 % Low 11.8-14.4 [facility] Comment on above: Performed By: #### S ED, CDP, CP, HCG #### [address] [place] [address] Data Clerk: Kristen Howe MD Hematocrit (Bld) [Volume fraction] 40.1 % Normal 36.3-47.1 [facility] Comment on above: Performed By: #### S ED, CDP, CP, HCG #### [address] [place] [address] Data Clerk: Kristen Howe MD Hemoglobin (Bld) [Mass/Vol] 13.8 g/dL Normal 11.9-15.1 [facility] Comment on above: Performed By: #### S ED, CDP, CP, HCG #### [address] [place] [address] Data Clerk: Kristen Howe MD Immature granulocytes/100 WBC (Bld) 0 % Normal 0 [facility] Comment on above: Performed By: #### S ED, CDP, CP, HCG #### [address] [place] [address] Data Clerk: Kristen Howe MD Lymphocytes (Bld) [#/Vol] 1.98 10*3/uL Normal 1.20-5.20 [facility] Comment on above: Performed By: #### S ED, CDP, CP, HCG #### [address] [place] [address] Data Clerk: Kristen Howe MD Lymphocytes/100 WBC (Bld) 32 % Normal 25-45 [facility] Comment on above: Performed By: #### S ED, CDP, CP, HCG #### [address] [place], [facility] Data Clerk: Kristen Howe MD MCH (RBC) [Entitic mass] 31.4 pg Normal 25.2-33.5 [facility] Comment on above: Performed By: #### S ED, CDP, CP, HCG #### [address] [place] [address] Data Clerk: Kristen Howe MD MCHC (RBC) [Mass/Vol] 34.4 g/dL Normal 28.4-34.8 [facility] Comment on above: Performed By: #### S ED, CDP, CP, HCG #### [facility] [address] [place] [address] Dr. [place], [place] [id number] Data Clerk: Kristen Howe MD MCV (RBC) [Entitic vol] 91.1 fL Normal 82.6-102.9 [facility] Comment on above: Performed By: #### S ED, CDP, CP, HCG #### [address] [place], [place] [address]883 Data Clerk: Kristen Howe MD Monocytes (Bld) [#/Vol] 0.45 10*3/uL Normal 0.10-1.40 [facility] Comment on above: Performed By: #### S ED, CDP, CP, HCG #### [address] [place], [place] 4563583 Data Clerk: Kristen Howe MD Monocytes/100 WBC (Bld) 7 % Normal 2-8 [facility] Comment on above: Performed By: #### S ED, CDP, CP, HCG #### [address] [place], [place] 6[address]83 Data Clerk: Kristen Howe MD Neutrophil (Seg) 57 % Normal 34-64 [facility] Comment on above: Performed By: #### S ED, CDP, CP, HCG #### [facility] [address] [place], [place] 1192783 Data Clerk: Kristen Howe MD NRBC Automated 0.0 per 100 WBC Normal 0.0 [facility] Comment on above: Performed By: #### S ED, CDP, CP, HCG #### [facility] [address] [place], [place] [id number] Data Clerk: Kristen Howe MD Platelet mean volume (Bld) [Entitic vol] 8.4 fL Normal 8.1-13.5 [facility] Comment on above: Performed By: #### S ED, CDP, CP, HCG #### [facility] [address] [place] [address] Data Clerk: Kristen Howe MD Platelets (Bld) [#/Vol] 365 10*3/uL Normal 138-453 [facility] Comment on above: Performed By: #### S ED, CDP, CP, HCG #### [facility] [address] [place] [address] Data Clerk: Kristen Howe MD RBC (Bld) [#/Vol] 4.40 10*6/uL Normal 3.95-5.11 [facility] Comment on above: Performed By: #### S ED, CDP, CP, HCG #### [address] [place] [address] Data Clerk: Kristen Howe MD WBC (Bld) [#/Vol] 6.2 10*3/uL Normal 4.5-13.5 [facility] Comment on above: Performed By: #### S ED, CDP, CP, HCG #### [address] [place] [address] Data Clerk: Kristen Howe MD Auto Diff Performed NOT REPORTED Normal [facility] Comment on above: Performed By: #### S ED, CDP, CP, HCG #### [facility] [address] [place] [address] [place] [address] Data Clerk: Kristen Howe MD Platelet Estimate NOT REPORTED Normal [facility] Comment on above: Performed By: #### S ED, CDP, CP, HCG #### [address] [place] [address] Data Clerk: Kristen Howe MD RBC morphology finding Nom (Bld) NOT REPORTED Normal [facility] Comment on above: Performed By: #### S ED, CDP, CP, HCG #### [facility] [address] [place] [address] Data Clerk: Kristen Howe MD WBC Morphology NOT REPORTED Normal [facility] Comment on above: Performed By: #### S ED, CDP, CP, HCG #### [facility] [address] [place] [address] Data Clerk: Kristen Howe MD CT ABDOMEN PELVIS W IV CONTR Kevin 10-10-2020 CT ABDOMEN PELVIS W IV CONTRAST EXAMINATION: CT OF THE ABDOMEN AND PELVIS WITH CONTRAST 10/10/2020 2:55 pm TECHNIQUE: CT of the abdomen and pelvis was performed with the administration of intravenous contrast. Multiplanar reformatted images are provided for review. Dose modulation, iterative reconstruction, and/or weight based adjustment of the mA/kV was utilized to reduce the radiation dose to as low as reasonably achievable. COMPARISON: None. HISTORY: ORDERING SYSTEM PROVIDED HISTORY: abd pain - left lower TECHNOLOGIST PROVIDED HISTORY: abd pain - left lower Decision Support Exception - unselect if not a suspected or confirmed emergency medical condition->Emergency Medical Condition (MA) FINDINGS: Lower Chest: The visualized lung bases are clear. Organs: Mild right hydronephrosis and hydroureter, likely secondary to compressive affects of the pelvic mass. The liver, gallbladder, pancreas, spleen, and adrenals reveal no acute findings. Subcentimeter benign-appearing hypoattenuating liver lesion in the posterior right hepatic lobe measures less than 5 mm, likely a cyst. Findings compatible with focal fat deposition along the falciform ligament. GI/Bowel: There is no bowel dilatation or wall thickening identified. Pelvis: Large cystic mass with fatty components and calcification occupies the pelvis, arising from the right ovary, measuring 14 x 11 x 15 cm. The uterus is displaced anteriorly and to the left. The left ovary appears grossly unremarkable. Normal variant arcuate configuration of the uterine cavity. Peritoneum/Retroperit oneum: No free air or free fluid. The aorta is normal in caliber. The visceral branches are patent. No lymphadenopathy. Bones/Soft Tissues: No abnormality identified. 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 This results in compressive affects on the right ureter and mild hydronephrosis. Follow-up with gynecology is recommended due to the large size of this mass and associated compressive affects. Interpreted by: Charles Virgen MD Signed by: Charles Virgen MD 10/10/20 Final result Normal [facility] CT ABDOMEN PELVIS W IV CONTR AST Additional Contrast? 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 This results in compressive affects on the right ureter and mild hydronephrosis. Follow-up with gynecology is recommended due to the large size of this mass and associated compressive affects. [facility] [employer] Phone: EXAMINATION: CT OF THE ABDOMEN AND PELVIS WITH CONTRAST 10/10/2020 2:55 pm TECHNIQUE: CT of the abdomen and pelvis was performed with the administration of intravenous contrast. Multiplanar reformatted images are provided for review. Dose modulation, iterative reconstruction, and/or weight based adjustment of the mA/kV was utilized to reduce the radiation dose to as low as reasonably achievable. COMPARISON: None. HISTORY: ORDERING SYSTEM PROVIDED HISTORY: abd pain - left lower TECHNOLOGIST PROVIDED HISTORY: abd pain - left lower Decision Support Exception - unselect if not a suspected or confirmed emergency medical condition->Emergency Medical Condition (MA) FINDINGS: Lower Chest: The visualized lung bases are clear. Organs: Mild right hydronephrosis and hydroureter, likely secondary to compressive affects of the pelvic mass. The liver, gallbladder, pancreas, spleen, and adrenals reveal no acute findings. Subcentimeter benign-appearing hypoattenuating liver lesion in the posterior right hepatic lobe measures less than 5 mm, likely a cyst. Findings compatible with focal fat deposition along the falciform ligament. GI/Bowel: There is no bowel dilatation or wall thickening identified. Pelvis: Large cystic mass with fatty components and calcification occupies the pelvis, arising from the right ovary, measuring 14 x 11 x 15 cm. The uterus is displaced anteriorly and to the left. The left ovary appears grossly unremarkable. Normal variant arcuate configuration of the uterine cavity. Peritoneum/Retroperit oneum: No free air or free fluid. The aorta is normal in caliber. The visceral branches are patent. No lymphadenopathy. Bones/Soft Tissues: No abnormality identified. [facility] Phone: Eriberto, Mhpn Incoming Radiant Results From [employer] - 10/10/2020 3:13 PM EDT EXAMINATION: CT OF THE ABDOMEN AND PELVIS WITH CONTRAST 10/10/2020 2:55 pm TECHNIQUE: CT of the abdomen and pelvis was performed with the administration of intravenous contrast. Multiplanar reformatted images are provided for review. Dose modulation, iterative reconstruction, and/or weight based adjustment of the mA/kV was utilized to reduce the radiation dose to as low as reasonably achievable. COMPARISON: None. HISTORY: ORDERING SYSTEM PROVIDED HISTORY: abd pain - left lower TECHNOLOGIST PROVIDED HISTORY: abd pain - left lower Decision Support Exception - unselect if not a suspected or confirmed emergency medical condition->Emergency Medical Condition (MA) FINDINGS: Lower Chest: The visualized lung bases are clear. Organs: Mild right hydronephrosis and hydroureter, likely secondary to compressive affects of the pelvic mass. The liver, gallbladder, pancreas, spleen, and adrenals reveal no acute findings. Subcentimeter benign-appearing hypoattenuating liver lesion in the posterior right hepatic lobe measures less than 5 mm, likely a cyst. Findings compatible with focal fat deposition along the falciform ligament. GI/Bowel: There is no bowel dilatation or wall thickening identified. Pelvis: Large cystic mass with fatty components and calcification occupies the pelvis, arising from the right ovary, measuring 14 x 11 x 15 cm. The uterus is displaced anteriorly and to the left. The left ovary appears grossly unremarkable. Normal variant arcuate configuration of the uterine cavity. Peritoneum/Retroperit oneum: No free air or free fluid. The aorta is normal in caliber. The visceral branches are patent. No lymphadenopathy. Bones/Soft Tissues: No abnormality identified. 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 This results in compressive affects on the right ureter and mild hydronephrosis. Follow-up with gynecology is recommended due to the large size of this mass and associated compressive affects. [employer] Work Phone: Comp Metabolic Profon 2020 (cont.) Normal [facility] Comment on above: Result Comment: Aver age GFR for 20-29 years old: 116 mL/min/1.73sq m Chronic Kidney Disease: <60 mL/min/1.73sq m Kidney failure: <15 mL/min/1.73sq m eGFR calculated using average adult body mass. Additional eGFR calculator available at: http://www.[employer]/multiple_crcl_2012.htm Performed By: #### S ED, CDP, CP, HCG #### [facility] [address] [place], [place] [id number] Data Clerk: Kristen Howe MD Albumin [Mass/Vol] 4.5 g/dL Normal 3.5-5.2 [facility] Comment on above: Performed By: #### S ED, CDP, CP, HCG #### [facility] [address] [place] [address] Data Clerk: Kristen Howe MD Albumin/Glob Ratio 2.0 Normal 1.0-2.5 [facility] Comment on above: Performed By: #### S ED, CDP, CP, HCG #### [facility] [address] [place] [address] [place] [address] Data Clerk: Kristen Howe MD Alkaline Phos 62 U/L Normal 35-104 [facility] Comment on above: Performed By: #### S ED, CDP, CP, HCG #### [address] [place] [address] Data Clerk: Kristen Howe MD ALT [Catalytic activity/Vol] 9 U/L Normal 5-33 [facility] Comment on above: Performed By: #### S ED, CDP, CP, HCG #### [facility] [address] [place] [address] Data Clerk: Kristen Howe MD Anion gap [Moles/Vol] 7 mmol/L Low 9-17 [facility] Comment on above: Performed By: #### S ED, CDP, CP, HCG #### [facility] [address] [place] [address] [address] [place], [place] [id number] Data Clerk: Kristen Howe MD AST [Catalytic activity/Vol] 16 U/L Normal <32 [facility] Comment on above: Performed By: #### S ED, CDP, CP, HCG #### [facility] [address] [place], [place] 27[address]83 Data Clerk: Kristen Howe MD Bilirubin [Mass/Vol] 0.52 mg/dL Normal 0.3-1.2 [facility] Comment on above: Performed By: #### S ED, CDP, CP, HCG #### [facility] [address] [place], [place] 365[address]83 Data Clerk: Kristen Howe MD BUN/CRE Ratio 13 Normal 9-20 [facility] Comment on above: Performed By: #### S ED, CDP, CP, HCG #### [address] [place], [place] 3338183 Data Clerk: Kristen Howe MD Calcium [Mass/Vol] 9.8 mg/dL Normal 8.6-10.4 [facility] Comment on above: Performed By: #### S ED, CDP, CP, HCG #### [address] [place], [place] 5950483 Data Clerk: Kristen Howe MD Chloride [Moles/Vol] 102 mmol/L Normal 98-107 [facility] Comment on above: Performed By: #### S ED, CDP, CP, HCG #### [facility] [address] [place] [address] Data Clerk: Kristen Howe MD CO2 [Moles/Vol] 31 mmol/L Normal 20-31 [facility] Comment on above: Performed By: #### S ED, CDP, CP, HCG #### [facility] [address] [place], [place] 1752583 Data Clerk: Kristen Howe MD Creatinine [Mass/Vol] 0.64 mg/dL Normal 0.50-0.90 [facility] Comment on above: Performed By: #### S ED, CDP, CP, HCG #### [facility] [address] [place], [place] 214[address]83 Data Clerk: Kristen Howe MD GFR, Amer >60 Normal >60 [facility] Comment on above: Performed By: #### S ED, CDP, CP, HCG #### [facility] [address] [place], [place] 612[address]83 Data Clerk: Kristen Howe MD GFR,non Amer >60 Normal >60 [facility] Comment on above: Performed By: #### S ED, CDP, CP, HCG #### [address] [place], [place] 4260783 Data Clerk: Kristen Howe MD Glucose [Mass/Vol] 94 mg/dL Normal 70-99 [facility] Comment on above: Performed By: #### S ED, CDP, CP, HCG #### [address] [place], [place] 8138083 Data Clerk: Kristen Howe MD Potassium [Moles/Vol] 3.5 mmol/L Low 3.7-5.3 [facility] Comment on above: Performed By: #### S ED, CDP, CP, HCG #### [address] [place], [place] 5513483 Data Clerk: Kristen Howe MD Protein [Mass/Vol] 6.8 g/dL Normal 6.4-8.3 [facility] Comment on above: Performed By: #### S ED, CDP, CP, HCG #### [address] [place], [place] 9114483 Data Clerk: Kristen Howe MD Sodium [Moles/Vol] 140 mmol/L Normal 135-144 [facility] Comment on above: Performed By: #### S ED, CDP, CP, HCG #### [address] [place] [address] Data Clerk: Kristen Howe MD Staging: Normal [facility] Comment on above: Result Comment: Stag e 1: Some kidney damage normal GFR Stage 2: Mild kidney damage GFR 60-89 Stage 3: Moderate kidney damage GFR 30-59 Stage 4: Severe kidney damage GFR 15-29 Stage 5: Severe kidney damage GFR <15 ESRD - chronic treatment by dialysis or transplant Performed By: #### S ED, CDP, CP, HCG #### [facility] [address] [place] [address] Data Clerk: Kristen Howe MD Urea nitrogen [Mass/Vol] 8 mg/dL Normal 6-20 [facility] Comment on above: Performed By: #### S ED, CDP, CP, HCG #### [facility] [address] [place] [address] Data Clerk: Kristen Howe MD Comprehensive Metabolic Pane lOrdered By: Estuardo Carter on 10-10-2020 Albumin [Mass/Vol] 4.5 g/dL 3.5 - 5.2 g/dL [employer] Phone: Albumin/Globulin [Mass ratio] 2.0 {ratio} [employer] Phone: ALP (Bld) [Catalytic activity/Vol] 62 U/L 35 - 104 U/L [employer] Phone: ALT [Catalytic activity/Vol] 9 U/L 5 - 33 U/L [facility]: Anion gap [Moles/Vol] 7 mmol/L Low 9 - 17 mmol/L [employer] Phone: AST [Catalytic activity/Vol] 16 U/L <32 [employer] Phone: Bilirubin [Mass/Vol] 0.52 mg/dL 0.3 - 1 .2 mg/dL [employer] Phone: Calcium [Mass/Vol] 9.8 mg/dL 8.6 - 10. 4 mg/dL [employer] Phone: Chloride [Moles/Vol] 102 mmol/L 98 - 10 7 mmol/L [employer] Phone: CO2 [Moles/Vol] 31 mmol/L 20 - 31 mmol/L [employer] Phone: Creatinine [Mass/Vol] 0.64 mg/dL 0.50 - 0.90 mg/dL [employer] Phone: Free PSA/Total PSA [Mass fraction] 6.8 g/dL 6.4 - 8.3 g/dL [employer] Phone: GFR >60 >60 mL/min [employer] Phone: GFR Non- >60 >60 mL/min [employer] Phone: Glucose [Mass/Vol] 94 mg/dL 70 - 99 mg/dL [employer] Phone: Interpretation and review of laboratory results Abnormal [employer] Phone: Potassium [Moles/Vol] 3.5 mmol/L Low 3.7 - 5.3 mmol/L [employer] Phone: Sodium [Moles/Vol] 140 mmol/L 135 - 144 mmol/L [employer] Phone: Urea nitrogen (BldV) [Mass/Vol] 8 mg/dL 6 - 20 mg/dL [employer] Phone: Urea nitrogen/Creatinine (Bld) [Mass ratio] 13 [employer] Phone: HCG Qualitative, SerumOrdere d By: Estuardo Carter on 10-10-2020 hCG Qual Negative NEGATIVE [employer] Phone: Comment on above: Specimens with hCG l evels near the threshold of the test (25 mIU/mL) may give a negative or indeterminate result. In such cases, another test should be performed with a new specimen in 48-72 hours. If early is suspected clinically in this setting, correlation with quantitative serum b-hCG level is suggested. [facility] has confirmed the use of plasma for this test. This has not been cleared or approved by the U.S. Food and Drug Administration. The FDA has determined that such clearance is not necessary. HCG Screen, Bloodon 10-11-19 HCG Screen, Blood Negative Normal NEG [facility] Comment on above: Result Comment: Spec imens with hCG levels near the threshold of the test (25 mIU/mL) may give a negative or indeterminate result. In such cases, another test should be performed with a new specimen in 48-72 hours. If early is suspected clinically in this setting, correlation with quantitative serum b-hCG level is suggested. [facility] has confirmed the use of plasma for this test. This has not been cleared or approved by the U.S. Food and Drug Administration. The FDA has determined that such clearance is not necessary. Performed By: #### S ED, CDP, CP, HCG #### [facility] [address] [address] Data Clerk: Kristen Howe MD Laboratory - Chemistry and C hemistry - challengeOrdered By: Estuardo Carter on 10-10-2020 GFR/1.73 sq M.predicted MDRD (S/P/Bld) [Vol rate/Area] [facility] Work Phone: Comment on above: Average GFR for 20-2 9 years old: 116 mL/min/1.73sq m Chronic Kidney Disease: <60 mL/min/1.73sq m Kidney failure: <15 mL/min/1.73sq m eGFR calculated using average adult body mass. Additional eGFR calculator available at: http://www.Exeros.com/multiple_crcl_2012.htm Stage 1: Some kidney damage normal GFR Stage 2: Mild kidney damage GFR 60-89 Stage 3: Moderate kidney damage GFR 30-59 Stage 4: Severe kidney damage GFR 15-29 Stage 5: Severe kidney damage GFR <15 ESRD - chronic treatment by dialysis or transplant Microscopic UrinalysisOrdere d By: Estuardo Carter on 10-10-2020 - [facility] Work Phone: Amorphous, UA NOT REPORTED None [facility] Work Phone: Bacteria, UA NOT REPORTED None [facility] Work Phone: Casts UA NOT REPORTED /LPF [facility] Work Phone: Crystals, UA NOT REPORTED None /HPF [facility] Work Phone: Epithelial Cells UA [address] [facility] Work Phone: Mucus, UA NOT REPORTED None [facility] Work Phone: Other Observations UA NOT REPORTED NOT REQ. M [facility] Work Phone: RBC, UA [address] [facility] Work Phone: Renal Epithelial, UA NOT REPORTED 0 /HPF [facility] Work Phone: Trichomonas, UA NOT REPORTED None [facility] Work Phone: WBC, UA [address] [facility] Work Phone: Yeast, UA NOT REPORTED None [facility] Work Phone: Sedimentation Rateon 021 Sedimentation Rate 3 mm Normal 0-20 [facility] Comment on above: Performed By: #### S ED, CDP, CP, HCG #### [facility] [address] [place] [address] Data Clerk: Kristen Howe MD Sedimentation RateOrdered By : Estuardo Carter on 10-10-2020 Sed Rate 3 mm 0 - [address] [facility] Work Phone: Surgical Pathologyon 021 Surgical Pathology (NOTE) -- Diagnosis -- RIGHT OVARY, OOPHORECTOMY:- BENIGN DERMOID CYST (MATURE CYSTIC TERATOMA), MULTIPLE PIECES.- SEE MICROSCOPIC DESCRIPTION. Greyson Alan, Electronically Signed Out [facility]/10/14/2020 Clinical Information Pre-op Diagnosis: DERMOID CYST Operative Findings: RIGHT OVARY Operation Performed: OOPHORECTOMY LAPAROSCOPIC vs LAPAROSCOPIC CYSTECTOMY Source of Specimen 1: RIGHT OVARY Gross Description FADIA LAN, RIGHT OVARY Fragments of cystic ovary, 84 grams and 14.0 x 10.0 x 8.0 cm in aggregate. The external surfaces are ragsdale-white and no obvious fallopian tube is identified. The lining is mostly wrinkled ragsdale-white with areas of ragsdale skin. Sectioning reveals a few areas of bone and the intact cystic areas contain hair and pasty yellow material. Also on the lining, is a 0.5 cm papillary focus. Tunneller sections 4cs with papillary focus included in A. 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 Components of the tumor include: keratinizing squamous epithelium on the inner surface (which is focally eroded with associated foreign body reaction associated with hair fragments), pilosebaceous units, eccrine glands, mature adipose tissue, smooth muscle and mature glial tissue. The small papillary lesion is papillary thyroid tissue with associated focal microcalcifications. This focus does not have nuclear features of papillary thyroid carcinoma and is regarded as benign papillary hyperplasia. No immature or malignant features are identified SURGICAL PATHOLOGY CONSULTATION Patient Name: FADIA LAN. [facility] Rec: [id number] Path Number: [id number] [facility] ANATOMIC PATHOLOGY [address] [place] [id number] Normal [facility] Comment on above: Performed By: #### P PPVS #### [address] [address] Data Clerk: Ottoniel Hyde MD UA w/Reflex Cultureon 2020 Acetoacetic Acid,Ur Negative Normal NEG [facility] Comment on above: Performed By: #### U ALESHA UAX #### [facility] [address] [place] [address] Data Clerk: Kristen Howe MD Bilirubin, SemiQt,Ur Negative Normal NEG [facility] Comment on above: Performed By: #### U ALESHA UAX #### [facility] [address] [place], [place] [id number] Data Clerk: Kristen Howe MD Color (U) YELLOW Normal YEL [facility] Comment on above: Performed By: #### U MICAO, UAX #### [facility] [address] [place], [place] [id number] Data Clerk: Kristen Howe MD Glucose Ql (U) Negative Normal NEG [facility] Comment on above: Performed By: #### U MICAO, UAX #### [facility] [address] [place] [address] [address] [place], [place] [id number] Data Clerk: Kristen Howe MD Hemoglobin, Ur 3+ Abnormal NEG [facility] Comment on above: Performed By: #### U MICAO, UAX #### [facility] [address] [place] [address] Dr[address] [place], [facility] Data Clerk: Kristen Howe MD Leukocyte esterase Test strip Ql (U) Negative Normal NEG [facility] Comment on above: Performed By: #### U MICAO, UAX #### [address] [place], [facility] Data Clerk: Kristen Howe MD Nitrite,Ur Negative Normal NEG [facility] Comment on above: Performed By: #### U MICAO, UAX #### [facility] [address] [place] [address] Dr. [place], [facility] Data Clerk: Kristen Howe MD PH,Ur 6.0 Normal 5.0-9.0 [facility] Comment on above: Performed By: #### U MICAO, UAX #### [address] [place], [place] [id number] Data Clerk: Kristen Howe MD Protein Ql (U) TRACE Abnormal NEG [facility] Comment on above: Performed By: #### U MICAO, UAX #### [facility] [address] [place] [address] [place] [place], [place] [id number] Data Clerk: Kristen Howe MD Spec. [place],Ur 1.025 High 1.010-1.020 [facility] Comment on above: Performed By: #### U MICAO, UAX #### [facility] [address] [place] [address] Data Clerk: Kristen Howe MD Turbidity CLEAR Normal CLEAR [facility] Comment on above: Performed By: #### U MICAO, UAX #### [facility] [address] [place] [address] [place] [address] Data Clerk: Kristen Howe MD Urobilinogen,Ur Normal Normal NORM [facility] Comment on above: Performed By: #### U MICAO, UAX #### [address] [place], [place] [id number] Data Clerk: Kristen Howe MD Comment NOT REPORTED Normal [facility] Comment on above: Performed By: #### U MICAO, UAX #### [facility] [address] [place] [address] [place] [address] Data Clerk: Kristen Howe MD Urinalysis Reflex to Culture Ordered By: Estuardo Carter on 10-10-2020 Bilirubin Urine Negative NEGATIVE [facility] Work Phone: Color, UA YELLOW YELLOW [facility] Work Phone: Glucose, Ur Negative NEGATIVE [facility] Work Phone: Interpretation and review of laboratory results Abnormal [facility] Work Phone: Ketones Ql (U) Negative NEGATIVE [facility] Work Phone: Leukocyte esterase Test strip Ql (U) Negative NEGATIVE [facility] Work Phone: Nitrite, Urine Negative NEGATIVE [facility] Work Phone: pH, UA 6.0 [facility] Work Phone: Protein, UA TRACE Abnormal NEGATIVE [facility] [employer] Phone: Specific [place], UA 1.025 High [facility] [employer] Work Phone: Turbidity UA CLEAR CLEAR [facility] [employer] Work Phone: Urinalysis Comments NOT REPORTED [facility] [employer] Work Phone: Urine Hgb 3+ Abnormal NEGATIVE [facility] [employer] Work Phone: Urobilinogen, Urine Normal Normal [facility] [employer] Phone: Urinalysis,Microon 1 ----- Normal [facility] Comment on above: Performed By: #### U MICAO, UAX #### [facility] [address] [place] [address] Data Clerk: Kristen Howe MD Epithelial cells LM Ql (Urine sed) 0 TO 2 Normal 0-25 [facility] Comment on above: Performed By: #### U MICAO, UAX #### [facility] [address] [place] [address] Data Clerk: Kristen Howe MD Urine RBC's 20 TO 50 Normal 0-2 [facility] Comment on above: Performed By: #### U MICAO, UAX #### [facility] [address] [place] [address] Data Clerk: Kristen Howe MD Urine WBC's 0 TO 2 Normal 0-5 [facility] Comment on above: Performed By: #### U MICAO, UAX #### [facility] [address] [place] [address] Data Clerk: Kristen Howe MD Amorphous sediment LM Ql (Urine sed) NOT REPORTED Normal NONE [facility] Comment on above: Performed By: #### U MICAO, UAX #### [facility] [address] [place] [address] Data Clerk: Kristen Howe MD Bacteria NOT REPORTED Normal NONE [facility] Comment on above: Performed By: #### U MICAO, UAX #### [facility] [address] [place], [place] [id number] Data Clerk: Kristen Howe MD Casts NOT REPORTED Normal [facility] Comment on above: Performed By: #### U MICAO, UAX #### [facility] [address] [place], [place] [id number] Data Clerk: Kristen Howe MD Crystals LM Nom (Urine sed) NOT REPORTED Normal [facility] Comment on above: Performed By: #### U MICAO, UAX #### [facility] [address] [place], [place] [id number] Data Clerk: Kristen Howe MD Epithelial, Renal NOT REPORTED Normal 0 [facility] Comment on above: Performed By: #### U MICAO, UAX #### [facility] [address] [place] [address] Data Clerk: Kristen Howe MD Mucus Strands NOT REPORTED Normal [facility] Comment on above: Performed By: #### U MICAO, UAX #### [facility] [address] [place], [place] [id number] Data Clerk: Kristen Howe MD Other Observations NOT REPORTED Normal NREQ [facility] Comment on above: Performed By: #### U MICAO, UAX #### [facility] [address] [place], [place] [id number] Data Clerk: Kristen Howe MD Trichomonas NOT REPORTED Normal NONE [facility] Comment on above: Performed By: #### U MICAO, UAX #### [facility] [address] [place], [place] [id number] Data Clerk: Kristen Howe MD Yeast NOT REPORTED Normal [facility] Comment on above: Performed By: #### U MICAO, UAX #### [facility] [address] [place], [facility] Data Clerk: MD Jeanie Mahoney 06-29-2019 CNCO Letter Text Normal [facility] CNOVon 06-29-2019 CNOV Office Visit (SYNCMN ) FADIA LAN ([id number]) 1 F Date Time Provider Department 06/29/19 2:45 PM CELESTE WEISS SYNCMN During your visit today, we recorded the following information about you: Weight Height 53.3 kg 1.676 m Celeste Weiss Jr, DO, DO 07/06/2019 8:58 AM Signed [facility] [place] [facility] Department of Cardiovascular Medicine SECTION OF CARDIAC PACING and ELECTROPHYSIOLOGY OUTPATIENT VISIT DATE June 29, 2019 OUTPATIENT VISIT TYPE NEW PRIMARY CARE PHYSICIAN: Danilo Dinero MD [address] [place] [address] REFERRING PHYSICIAN: Danilo Dinero MD [address] [place] [address] . NURSING INTAKE HISTORY: Fadia Lan is an 18 y/o female who presents today for syncope. 03/01/19 pt had an episode of syncope at school followed by fatigue, blurry vision, somnolence, and disorientation. Her parents took her to the ED where her symptoms resolved with IV fluids. She did however have slightly elevated troponins. One week later she had another syncopal episode but with chest pain and shortness of breath. She was admitted to the hospital again. CT, ECHO, MRI, and EEG were all normal but her troponin was again elevated. Though the tilt table test did not meet criteria (borderline), POTS was diagnosed. She was treated with fludricortisone, midodrine, salt tablets, and potassium. She continued to have symptoms. 04/23 she started taking pyridostigmine because she was continuing to experience intermittent chest pain, SOB, lack of concentration/brain fog, weakness, lightheadedness, muscle paralysis, and LOC. She then developed hemoptysis (spitting out blood) so ishe was switched back to midodrine. 05/12/2019 she again went to the ED. Her discharge summary mentioned that her presentation was concerning for convulsive syncope or seizure vs. psychogenic non-epileptic seizures. She was discharged on pyridostigmine and has not had any concerning side effects this time. She has been losing consciousness once a week. During the syncope she shakes and stiffens. This lasts for a few minutes. This happens when she is sitting and even at times when she is sleeping. They are more severe when she overexerts herself. She endorses chest pain, shortness of breath, and palpitations during her pre-syncopal/syncopal episodes. She has random dizziness everyday. She has worn compression stockings but did not notice that they helped so she stopped. She has increased her fluid and salt intake. She does get dizzy when she takes warm showers. She did wear a holter monitor but had no syncope or 'seizures' while wearing it. She dances and walks. She has a tilt table test scheduled for the . She denies orthopnea, cough, edema, PND. Echo 05/15/2019 - Exam indication: POTS - The left ventricle is normal in size. Left ventricular systolic function is normal. EF = 55 ? 5% (visual est.) Normal left ventricular diastolic function. - The right ventricle is normal in size. Right ventricular systolic function is normal. - Trivial MR and TR. - Tricuspid aortic valve with trivial AI. There is no aortic stenosis. - Estimated right ventricular systolic pressure is 25 mmHg consistent with normal pulmonary artery pressures. Estimated right atrial pressure is 8 mmHg based on IVC?assessment. - The patient has not had a prior CC echocardiographic exam for comparison. PAST MEDICAL HISTORY Diagnosis Date - POTS (postural orthostatic tachycardia syndrome) History reviewed. No pertinent surgical history. SOCIAL HISTORY Social History Tobacco Use - Smoking status: Never Smoker - Smokeless tobacco: Never Used Substance Use Topics - Alcohol use: Not Currently - Drug use: Never FAMILY HISTORY Problem Relation Age of Onset - No Known Problems Mother - No Known Problems Father - No Known Problems Sister - No Known Problems Brother ALLERGIES: ALLERGIES No Known Allergies MEDICATIONS: POTASSIUM ORAL Take by mouth. sodium chloride 1 g tab Take 1 g by mouth once daily. pyridostigmine bromide 30 mg tab Take 60 mg by mouth. midodrine (PROAMATINE) 2.5 mg tablet Take 7.5 mg by mouth three times daily. citalopram hydrobromide (CELEXA) 10 mg tablet Take 10 mg by mouth once daily. REVIEW OF SYSTEMS: General, constitutional: Weight loss or gain-yes, Fever or chills-yes, Weakness-yes, Trouble sleeping-yes. Head, Eyes, Ears, Mouth: Headache, head injury-yes, Glasses or contact lenses-No, Pain-No, Impaired vision-No, Decreased hearing-No, Ringing in ears-No, Nose bleeds-No, Dental difficulties-No, Bleeding gums-No, Dentures-No. Neck: Swelling-No, Pain-No, Stiffness-No. Respiratory: Cough-No, Spitting up blood-No, Shortness of breath-yes, Wheezing or asthma-No. Musculoskeletal: Muscle or joint pain or stiffness-yes, Joint swelling-No. Gastrointestinal: Difficulty swallowing-No, Heartburn-yes, Change in bowel habits-No, Blood in stool, Dark black stools-No. Neurological/Psychiat liban: Weakness, paralysis-yes, Numbness-yes, Tingling-yes, Tremor-yes, Nervousness or anxiety-yes, Depressed mood-No, Memory loss-yes. Skin: Rash-No, Itching-No. Hematological: Easy bruising-No, Easy bleeding-No. Endocrine: Heat or cold intolerance-yes, Excessive sweating-yes, Frequent urination-yes, Frequent thirst-yes. Clemencia Calles RN PHYSICAL EXAMINATION: Ht 167.6 cm (5' 6 ) Wt 53.3 kg (117 lb 8 oz) BMI 18.96 kg/m? BP w/Orthostatic Vitals Date and Time Orthostatic BP Orthostatic Pulse BP Pulse BP Position BP Site BP Cuff Size 06/29/19 1517 107/65 98 -- -- Standing -- -- 06/29/19 1516 105/64 86 -- -- Sitting -- -- 06/29/19 1514 104/57 65 -- -- Supine -- -- I personally interviewed, examined, confirmed and edited the history documented by the Nurse. In addition to the below note, I attest that I have personally re-taken the History, confirmed the ROS, PMX, PSHx, Medications and re-performed the physical examination. Below reflects my service. Patient presents to the Department of Cardiology, Section of Cardiac Electrophysiology, [facility] Syncope [facility] Autonomic Disorders, on June 29 at the request of PCP to investigate multiple symptoms as above for which she is undergone extensive local evaluation including assessment at the [facility] electrophysiology autonomic laboratory by Dr. pierson, tilt table testing, multiple drug trials, but continues to have events. My findings, recommendations, and plan of care will be added to the electronic medical record and forwarded to the [facility] physicians by [employer] [place] and to the patient and the local physicians by [place] mail. Patient is 19 years old without a history of diabetes structural heart disease or arrhythmias or hypertension. She began to experience above episodes in late 2018. Prior to that she apparently was well. She's been diagnosed with orthostatic intolerance orthostatic tachycardia and has tried multiple medications including midodrine, Florinef, Mestinon, but continues to have unusual episodes which can occur in multiple positions including occurring while supine awaking her from sleep. She has ongoing shortness of breath chest pain is undergone extensive evaluation. She was transferred from a local hospital on May 12, 2019 because of recurrent syncope possible seizures. There was concern for recent vaccination and staph skin infection and there was concern for endocarditis. She did have an elevated troponin of uncertain significance and was admitted to the medical intensive care unit of the [facility]. She underwent extensive evaluation including repeat troponins, extensive lab, and consultations with neurology and with cardiology. Dr. Wick recommended repeating troponin levels and consideration for cardiac MRI which has not been performed. She had EEG monitoring throughout. Echocardiogram did not disclose any tricuspid valve vegetations. She remained on midodrine during hospitalization low she's no longer taking it. While hospitalized she had no events, and the question of PNES or pseudo-syncope was raised. Since discharge she's been seen by autonomic neurology comprehensive autonomic and hemodynamic assessment was recommended. This morning she underwent extensive evaluation in epilepsy neurology. 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 She reviewed the video as did I showing an episode with her arms outstretched and an stiff during an episode. did not feel any further neurologic workup was needed at this point and no need for anticonvulsants. She advised that she work with a counselor on stress reduction. She has seen multiple physicians and copy chief locally and has been working extensively at the [facility] with autonomic neurology group who ordered extensive testing including QSART, comprehensive cardiovascular autonomic reflexes, radionuclide hemodynamic study and hemodynamic echo. Radionuclide hemodynamic study showed low cardiac index at baseline but a normal ejection fraction. During postural challenge there was only mild decline in cardiac index and cardiopulmonary volume suggesting no major venous pooling or hypovolemia. There was appropriate increase in total peripheral resistance indicative of normal reflexes. Echocardiogram confirmed normal LV size and function and no significant valvular disease. She underwent comprehensive cardiovascular autonomic reflexes which were normal. Heart rate response to deep breathing is normal via the mean heart rate range and the E:I ratio. Heart rate response to the Valsalva maneuver, as assessed by the Valsalva ratio, is normal as are the blood pressure responses to phase II and phase IV of the maneuver. Tilt table testing is not performed per the requisition completed by the referring provider. This is a normal cardiovascular autonomic test panel. There is no evidence of a cardiovagal or cardiovascular adrenergic abnormality. I don't have the tilt test results in the records provided, but Dr. Love DIRECTOR OF BRAND MARKETING states that there was a borderline increase in the heart rate 24 bpm. She had a prolonged ambulatory event monitor for 13 days in February in which no patient diary was submitted in no patient triggered events were reported. It showed normal sinus rhythm throughout occasional mild sinus tachycardia. She is scheduled for upcoming skin biopsy to rule out small fiber neuropathy, and a tilt table test. The patient has no known coronary artery disease, diabetes, hypertension, cancer, DVTs, PE, infarction, congenital heart disease, valvular heart disease, or congestive heart failure. The patient denies exertional angina, sustained palpitations, paroxysmal nocturnal dyspnea, peripheral edema, nitroglycerin use. The patient has no history of rheumatic disease, hepatic disease, renal disease, thyroid disease, or pulmonary disease. The patient has never had a temporary or permanent pacemaker, electrophysiologic study, ablation, cardiac catheterization, DC cardioversion or been treated with an anti-arrhythmic medication. The patient has never had a cardioembolic event, stroke, TIA, or been treated with coumadin or newer anticoagulation agents. The patient has never had a fat pad, muscle, nerve, skin or salivary biopsy, to rule out small fiber neuropathy, amyloidosis, mitochondrial disease, Sjogren's etc. Previous medications used: Midodrine-y Florinef-y Droxydopa-n Mestinon-y Beta blockers- Ivabradine-n Serotonin drugs-y Anticholinergics-n The comprehensive review of systems of the nurse practitioner was repeated and verified by me. I performed a comprehensive physical examination. PHYSICAL EXAMINATION GENERAL: Well developed, well-nourished female in no acute cardiopulmonary distress. HEENT: Extraocular movements intact, pupils equally reactive to light and accommodation without jugular venous distention, carotid bruits, lymphadenopathy, or thyromegaly. LUNGS: Clear to auscultation and percussion. HEART: Rate and rhythm regular without gallops, murmurs, or rubs. ABDOMEN: Soft without masses or hepatosplenomegaly. No pain, rebound, guarding, or rigidity. EXTREMITIES: Free of peripheral edema. Pulses are intact. NEUROLOGIC: Grossly normal without focal neurologic deficit or lateralizing signs. EKG reveals normal sinus rhythm, normal MS and QRS intervals, no evidence of long QT interval, accessory pathway, Brugada's syndrome, previous infarction, or early repolarization. Assessment/Plan:19-ye ar-old with recurrent episodes of altered awareness unresponsiveness accompanied by stiffness and shaking clenched fist chest pain and other symptoms occurring in all positions including supine, and occasionally beginning during sleep which would be very unusual for orthostatic hypotension or, arrhythmias, or vasovagal syncope. We had an extensive discussion about our current understanding and approach to patients with orthostatic intolerance and how there is no unified theory about the pathophysiology and etiology of the relatively enigmatic disorder, but that our approaches focuses on investigation of underlying hemodynamic, cardiovascular and neurologic causes. Neurology suspects that at least some of the episodes may be PNES and had made recommendations to the patient It's possible that she may also have concomitant vasovagal despite the negative tilt and I would endorse the perfunctory, empiric, nonpharmacologic approaches to autonomic dysfunction symptom amelioration including 5-7 g sodium diet, 1 or 2 L of sports drinks daily, knee-high, thigh-high or waist-high custom fitted compression stockings. 4-6 inch elevation of the head of the bed, and regular exercise, which could initially consist of non-gravitational exercise, so called Olson protocol, consisting of aqua therapy, water walking, recumbent bike, NuStep, rowing machine et cetera, 3 or 4 times a week, 30-40 minutes and progressing to conventional exercise as tolerated. The patient should practice, learn and regularly implement the so called vasovagal abortive counter pressure counter measure maneuvers which are simply isometric exercises of the upper and lower extremities called leg crossing and arm tensing, which are be performed on a regular basis and practice, and applied during the patient's syncopal prodrome. We'll provide her with an ambulatory event monitor. Proceed with the skin biopsy and the repeat tilt test. I would suggest that we add EEG to the tilt protocol. I suggested they contact my office in a week or so after the tests to review preliminary results and recommendations with my nurse practitioner and I will provide detailed summary of their visit with my suggestions. This note was partially generated using [employer]it voice recognition system, and there may be some incorrect words, spellings, and punctuation that were not noted in checking the note before saving. Homer Weiss DO CC: Shanae Weeks [phone] (Work) [address] [place] [phone] Nurse Practitioner [facility] [address] [place] [phone] [facility] marilia Prettyg Neurology [facility] Referring Provider: DANILO DINERO [[id number]] Allergies As of Date: 06/29/2019 (No Known Allergies) Date Reviewed: 06/29/2019 Reviewed by: Celeste Weiss DO - Fully Assessed Primary Visit Diagnosis:Syncope and collapse [R55] Other Visit Diagnoses:Near syncope [R55] Chest pain, unspecified type [R07.9] Orthostatic lightheadedness [R42] Order(s):OUTSIDE VENDOR CARDIAC OUTPATIENT TELEMETRY [] Order #: [id number]: 1 EPIL EEG LONG [[id number]] Order #: [id number]: 1 FUTURE Prescriptions as of 06/29/2019 Sig: POTASSIUM ORAL Take by mouth. SODIUM CHLORIDE 1 GRAM TAB Take 1 g by mouth once daily. PYRIDOSTIGMINE BROMIDE 30 MG * Take 60 mg by mouth. MIDODRINE 2.5 MG TABLET Take 7.5 mg by mouth three ti* CITALOPRAM 10 MG TABLET Take 10 mg by mouth once verónica* Problem List As Of Date 06/29/2019 Noted Resolved Seizure-like activity (HCC) [R56.9] 05/12/2019 Syncope [R55] 05/13/2019 More... Other chest pain [R07.89] 05/13/2019 More... Elevated troponin [R79.89] 05/13/2019 More... Medications Discontinued During This Encounter perflutren lipid microspheres (DEFIN* 1.3 * 0 06/04/2019 06/29/2019 Class: In Office Route: INTRAVENOUS Sig: Inject 1.3 mL intravenously as directed. Administration Instructions: If no IV access, insert saline lock prior to administering contrast. Discontinue saline lock post exam. If patient has central line or IVAD, may access for administration according to line specific nursing protocol. Once exam is complete, flush line and de-access per line specific nursing protocol. Diluted IV Bolus: Dilute 1.3 ml of Definity with 8.7 ml of preservative-free saline. Disc: Course of therapy completed Encounter Status:Closed by CELESTE WEISS DO on 07/06/19 Normal [facility] CNOV Office Visit (NE50MN ) FADIA LAN ([id number]) 1 F Date Time Provider Department 06/29/19 11:00 AM OUSMANE GAMBOA [id number] During your visit today, we recorded the following information about you: Pulse Blood pressure Weight 76/minute 96/60 54.9 kg Ousmane Gamboa MD PhD 07/11/2019 2:46 PM Signed .[facility] Patient Name: Fadia Lan Date of : 2000 CLINIC NOTE - INITIAL VISIT CHIEF COMPLAINT: spells, here for further evaluation and treatment. CONSULTING DOCTOR: PRESENT ILLNESS: This is a 18 year old right-handed female who presents with a chief complaint of spells. The patient was accompanied by her parents at this clinic visit. She had immunication in November of 2018, infection in December of 2018, one month later, her spells began. Feb 2019, she had spell of passing out at high school, she was in class, felt her head bobing, eyes dropping, as she went down stairs duirng a drill, she was about to pass out but she was caught by a police academy instructor, she has LOC of unknown duration. 30 mins later, mother came to school, the patient was confused, slurred speech, she looked pale. She was admitted to a local hospital, some elevation of troponin. One week later, she had a similar episodes at school, she had SOB, hands trembling, she thought she was hungary, she went to [employer], she started to drove home, somehow, she had LOC, her car was in parked (but she did not remember), the patient called her parents she was in the ditch , at time the parents to her side, she looked pale, slurred and lethragic, she was admitted to the same local hospital for a few days: repeated Echo, troponin still elevated. At of end of Mar, +chest pain, dont feel good, or lightheadedness, dizziness, stomach sick, mild headache sometimes, then +LOC and fell down (no injury so far), while she was passed out, she had twitching arms, shoulders, fingers clawed, making noses. Over the time, her spells progressed more symptoms: head to side to side movement, eyes closed, legs kicking movement, arms flaining movement, breath holding, face turned blue, teeth clenched, hands clawed and toes curled up, body stiffening. She had tongue biting on a couple occasions. She had 7 episodes on 05/10/2019. On Occasion, she had spells during night sleep, she fell off the bed. The last episodes was Jun 20, 2019. She had EEGs done in Feb, it was normal. She had another 3 day-EEG on 05/18/2019 after she left [facility]. She had a mild spells recorded on EEG. The neurologist called psychgenic seizures but wanted to give her LEV which made her having odd behavior, she was then prescribed Lamotrigine. She is doing online, she wants going back to school. I Triggers, physical exhaustion, At age of 13 yr, she had a concussion in gym, no LOC, but feeling dizziness She was diagnosed of having POTs in [place] in Mar. Psychosocial: No depression, no anxiety. Insomnia. 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 Driving: not for now. PRIOR ANTICONVULSANT HISTORY: LEV, Following AEDs were associated with side effects: LEV (bizare behavior) PREVIOUS OSH EVALUATIONS: BEM 05/12/2019-05/16/2019: normal MRI w/wo 03/15/2019 Normal ? ========= Neurology consultation 05/12/2019; ? Ramesh Scales MD HPI: This is Ms. Fadia Lan a 18 year old female with recent diagnosis of POTS who was transferred from an OSH after having episodes concerning for seizures. History was provided by patient and her mother. ? In November 2018 she had vaccinations including HPV, Hep, and meningococcal. 2-3 weeks afterwards, she developed a skin rash on right foot and groin region. She was told it was staph, given antibiotics then steroids. The rash spread into blistering regions, so she was seen by Dermatology who treated further for Staph infection, which was healed by mid-January. ? March 01 she came home from high school after having passed out. When parents arrived she had slurred speech, was drowsy, dry heaving. She was taken to ED where Troponin level was elevated, she was admitted where ECHO showed possible density on Tricuspid valve, which was later thought to be tissue. After coming home, she left school again due to dizziness, shortness of breath, tremors, was re-evaluated in ED. This time had 30 minute EEG which per parents was normal. ? Since then, she has had progressive symptoms. Episodes of losing consciousness occurred 1-2 times per week, increasing to one every other day for the past week, and seven episodes yesterday. Per mother episodes include: feeling of nausea, sometimes chest pain, lightheadedness, then she loses consciousness from a couple minutes up to 15 minutes. Shaking movements vary in intensity from small tremors to clenching fists, flexing at elbows and curling toes. The episodes yesterday worsened in intensity to the point of foaming at mouth, head shaking no , eyes closed. Per her mother sometimes she cries and holds her chest. No incontinence but bit her tongue once 4 days ago. Episodes tend to occur in the evenings or early breastfeeding care specialist (3AM-5AM- per mother she is awake prior to episodes). Can be sitting or standing. Only one seemed to be out of sleep (her sister found her shaking in bed in the morning). ? In between episodes she has nausea, intermittent chest pain and shortness of breath, dry heaves, occasional vomiting, intermittent blurry vision, headaches. ? Since she had 7 episodes yesterday, family took her to local ED, then transferred to [facility] for further management. Prior work-up includes EEG, MRI Brain w/wo contrast on 03/15 which was normal, and Tilt table testing per mother she did not meet full criteria of POTS, but she was started on medication to treat for possible POTS, which has not helped. ? She denied history of seizures, meningitis, no FH of seizures. She had one concussion 4 years ago after head injury while playing dodge ball. She denied smoking, drinking alcohol, and drug use. She is currently having problems with insomnia. She denied significant stress. She has had to stay home from high school and quit her job at [employer] due to episodes. ? Impression/Recommenda tions This is Ms. Fadia Lan a 18 year old female with recent diagnosis of POTS who was transferred from an OSH after having episodes concerning for seizures. Episodes started in 02/2019 which occurred a couple weeks after vaccinations and after having a Staph skin infection. Since then, episodes have increased in frequency and intensity, described as: starting with nausea, lightheadedness, followed by loss of consciousness and shaking movements, which can range from small tremors to more intense movements with clenched fits and curled toes. She occasionally cries and grabs for chest, no incontinence but bit tongue once. Only seizure risk factor includes one concussion four year ago. Prior work-up includes EEG, MRI Brain w/wo contrast on 03/15 which was normal, and Tilt table testing per mother she did not meet full criteria of POTS, but she was started on medication to treat for possible POTS, which has not helped. ? Neurological examination is non-focal. Specifically strength is intact, reflexes intact and equal, no sensory or coordination deficits. ? Differential includes convulsive syncope (possible POTS) versus seizure. Certain components of the events are unusual for seizure (varying in intensity, duration up to 15 minutes, crying and grabbing at chest). She also has prodrome of nausea and lightheadedness which are more likely syncopal. However she may have had one episode out of sleep (?) which would be unusual for syncope. Cardiology has been consulted to further evaluate possible tricuspid valve abnormality. Recommend further evaluation with prolonged EEG monitoring. Brain Tumor NA FUR IRONER Infections NA Developmental Delay NA Family history of epilepsy NA Febrile Seizure NA Complications NA Stroke NA Traumatic Brain Injury NA CURRENT MEDICATIONS: POTASSIUM ORAL Take by mouth. perflutren lipid microspheres (DEFINITY) 1.1 mg/mL injection (to be provided with echo procedure) Inject 1.3 mL intravenously as directed. Administration Instructions: If no IV access, insert saline lock prior to administering contrast. Discontinue saline lock post exam. If patient has central line or IVAD, may access for administration according to line specific nursing protocol. Once exam is complete, flush line and de-access per line specific nursing protocol. Diluted IV Bolus: Dilute 1.3 ml of Definity with 8.7 ml of preservative-free saline. sodium chloride 1 g tab Take 1 g by mouth once daily. pyridostigmine bromide 30 mg tab Take 60 mg by mouth. midodrine (PROAMATINE) 2.5 mg tablet Take 7.5 mg by mouth three times daily. citalopram hydrobromide (CELEXA) 10 mg tablet Take 10 mg by mouth once daily. PAST MEDICAL HISTORY: No past medical history on file. No past medical history pertinent negatives. PAST SURGICAL HISTORY: No past surgical history on file. FAMILY MEDICAL HISTORY: No family history on file. SOCIAL HISTORY: Social History Tobacco Use - Smoking status: Never Smoker - Smokeless tobacco: Never Used Substance Use Topics - Alcohol use: Not Currently - Drug use: Not on file REVIEW OF SYSTEMS: CONST: no change in weight; no lightheadedness; no fevers, chills, or night sweats. There have been no headaches. EYES: no double vision; no blurred vision ENT: no change in hearing; no trouble swallowin no memory loss CARD: no chest pain or palpitations, no leg edema RESP: no shortness of breath or cough : no urinary urgency, frequency, or hematuria GI: no abdominal pain or change in bowel habits MUSC: no joint pain or swelling, no muscle or back pain PSYCH: no change in mood or sleep patterns HEME: no bruising, bleeding, or swollen glands. All other organ systems are negative. GENERAL EXAMINATION: There were no vitals taken for this visit. General Appearance: in no acute distress. HEENT: There are no facial dysmorphic features. Normocephalic. SKIN: no rashes. Normal color. EXTREMITIES: no edema NEUROLOGICAL EXAM: The patient's speech, affect, and cognition appear normal. Normal eye movements. No nystagmus noted. No facial asymmetry,hearing intact. Muscle Bulk are normal. There is no tremor GAIT is steady. OTHER RELEVANT LABS AND TEST: Routine EEG today IMPRESSION: The patient's shaking spells per family description and home video is suggestive of PNES with stressor of recent illness which affects her senior high school academic activities. She had BEM recording for several days at [facility] in Apr/May 2019 with normal EEG. After she was discharged from [facility], she had ambulatory EEG recording arranged by her local neurologist, she had her spells recorded, and was told by her neurologist that she has PNES and was recommended to see a psychologist. Discussed shaking/seizure like spells are PNES, she needs to work on her stress, she has a consoler at her high school. PLAN: No need for further tests for epilepsy. 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 The patient is eager to return back to school, to finish up last a few months of high school and graduate on time. From standpoint of epilepsy, she does not have epilepsy/seizures, she should be allowed to return back to school, not been able to return to school is another big stress for her (could be contribute of her current PNES). Continue to complete visit and work up with cardiology and autonomic workup per neurology. No driving, no height and practice safety precaution. Ousmane Gamboa MD PhD Staff, [facility] [place], [place] cc: Primary Care Physician: Danilo Dinero MD [address] [facility] [address] Referring Physician: SELF Ms. 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 X PERFLUTREN LIPID MICROSPHERES* Inject 1.3 mL intravenously a* SODIUM CHLORIDE 1 GRAM TAB Take 1 g by mouth once daily. PYRIDOSTIGMINE BROMIDE 30 MG * Take 60 mg by mouth. MIDODRINE 2.5 MG TABLET Take 7.5 mg by mouth three ti* CITALOPRAM 10 MG TABLET Take 10 mg by mouth once verónica* Problem List As Of Date 06/29/2019 Noted Resolved Seizure-like activity (HCC) [R56.9] 05/12/2019 Syncope [R55] 05/13/2019 More... Other chest pain [R07.89] 05/13/2019 More... Elevated troponin [R79.89] 05/13/2019 More... Encounter Status:Closed by BEE LYNCH, OUSMANE PHD on 07/11/19 Normal [facility] ECG COMPLETEon 06-29-2019 ECG COMPLETE NAME : FADIA LAN PID : [id number] : 2000 Gender : Female Race : ORD : [id number] Procedure Date : Jun 29 2019 13:19:31 Edit Date : Jul 02 2019 13:58:19 Diagnosis:NORMAL SINUS RHYTHM NORMAL ECG Confirmed by OLIVIER RUBIO M.D. ([id number]) on 07/02/2019 1:55:40 PM Ventricular Rate : 75 BPM Atrial Rate : 75 BPM P-R Interval : 140 ms QRS Duration : 94 ms Q-T Interval : 392 ms QTC Calculation(Bazett) : 437 ms P [place] : 65 degrees R [place] : 62 degrees T [place] : 35 degrees Test Reason : Location : 314 : J14 Overread By : OLIVIER RUBIO M.D. Edited By : OLIVIER RUBIO M.D. Referred By : CELESTE WEISS Acquired by : KEVIN MANRIQUE [facility] OBSOLETEon 06-29-2019 OBSOLETE Procedure (NEAU) FADIA LAN ([id number]) 1 F Date Time Provider Department 06/29/19 9:00 AM AUTONOMIC 2 NEUR MAIN NEAU During your visit today, we recorded the following information about you: Referring Provider: SELF [[id number]] Allergies As of Date: 06/29/2019 (No Known Allergies) Date Reviewed: 06/29/2019 Reviewed by: Celeste Weiss DO - Fully Assessed Reason for Visit: Neurologic Problem [71] Primary Visit Diagnosis:Disorder of autonomic nervous system [G90.9] Prescriptions as of 06/29/2019 Sig: POTASSIUM ORAL Take by mouth. X PERFLUTREN LIPID MICROSPHERES* Inject 1.3 mL intravenously a* SODIUM CHLORIDE 1 GRAM TAB Take 1 g by mouth once daily. PYRIDOSTIGMINE BROMIDE 30 MG * Take 60 mg by mouth. MIDODRINE 2.5 MG TABLET Take 7.5 mg by mouth three ti* CITALOPRAM 10 MG TABLET Take 10 mg by mouth once verónica* Problem List As Of Date 06/29/2019 Noted Resolved Seizure-like activity (HCC) [R56.9] 05/12/2019 Syncope [R55] 05/13/2019 More... Other chest pain [R07.89] 05/13/2019 More... Elevated troponin [R79.89] 05/13/2019 More... Encounter Status:Closed by MARIA R GARCIA DO on 06/29/19 Normal [facility] PROCEDUREon 06-29-2019 PROCEDURE HNO ID: [id number] Author: Celeste Weiss DO Service: ? Author Type: Physician Type: Procedures Filed: 08/14/2019 4:14 PM Note Text: I reviewed the CardioNet strips in detail. Below reflects my interpretation. Patient utilized a CardioNet from July 11 until July 31. There was no atrial fibrillation, SVT, pauses, heart block or ventricular tachycardia. The PAC and PVC burden was less than 1%. Patient did 15 symptomatic activations for chest pain, heart racing, shortness of breath, dizziness, showing normal sinus rhythm mild sinus tachycardia for most. There were frequent automatic events showing sinus tachycardia. Celeste Weiss Jr, DO [facility] Name: FADIA LAN : 2000 Ordering provider: CELESTE WEISS Indication: R55 Syncope and collapse Type of monitor: Continuous Telemetry Enrollment dates: 07/11/2019 - 07/31/2019 [facility] 06-29-2019 PROGRESS HNO ID: [id number] Author: Celeste Weiss DO Service: ? Author Type: Physician Type: Progress Notes Filed: 07/06/2019 8:58 AM Note Text: [facility] [place] [facility] Department of Cardiovascular Medicine SECTION OF CARDIAC PACING and ELECTROPHYSIOLOGY OUTPATIENT VISIT DATE June 29, 2019 OUTPATIENT VISIT TYPE NEW PRIMARY CARE PHYSICIAN: Danilo Dinero MD [address] [place] [address] REFERRING PHYSICIAN: Danilo Dinero MD [address] [place] [address] . NURSING INTAKE HISTORY: Fadia Lan is an 18 y/o female who presents today for syncope. 03/01/19 pt had an episode of syncope at school followed by fatigue, blurry vision, somnolence, and disorientation. Her parents took her to the ED where her symptoms resolved with IV fluids. She did however have slightly elevated troponins. One week later she had another syncopal episode but with chest pain and shortness of breath. She was admitted to the hospital again. CT, ECHO, MRI, and EEG were all normal but her troponin was again elevated. Though the tilt table test did not meet criteria (borderline), POTS was diagnosed. She was treated with fludricortisone, midodrine, salt tablets, and potassium. She continued to have symptoms. 04/23 she started taking pyridostigmine because she was continuing to experience intermittent chest pain, SOB, lack of concentration/brain fog, weakness, lightheadedness, muscle paralysis, and LOC. She then developed hemoptysis (spitting out blood) so ishe was switched back to midodrine. 05/12/2019 she again went to the ED. Her discharge summary mentioned that her presentation was concerning for convulsive syncope or seizure vs. psychogenic non-epileptic seizures. She was discharged on pyridostigmine and has not had any concerning side effects this time. She has been losing consciousness once a week. During the syncope she shakes and stiffens. This lasts for a few minutes. This happens when she is sitting and even at times when she is sleeping. They are more severe when she overexerts herself. She endorses chest pain, shortness of breath, and palpitations during her pre-syncopal/syncopal episodes. She has random dizziness everyday. She has worn compression stockings but did not notice that they helped so she stopped. She has increased her fluid and salt intake. She does get dizzy when she takes warm showers. She did wear a holter monitor but had no syncope or 'seizures' while wearing it. She dances and walks. She has a tilt table test scheduled for the . She denies orthopnea, cough, edema, PND. Echo 05/15/2019 - Exam indication: POTS - The left ventricle is normal in size. Left ventricular systolic function is normal. EF = 55 ? 5% (visual est.) Normal left ventricular diastolic function. - The right ventricle is normal in size. Right ventricular systolic function is normal. - Trivial MR and TR. - Tricuspid aortic valve with trivial AI. There is no aortic stenosis. - Estimated right ventricular systolic pressure is 25 mmHg consistent with normal pulmonary artery pressures. Estimated right atrial pressure is 8 mmHg based on IVC?assessment. - The patient has not had a prior CC echocardiographic exam for comparison. PAST MEDICAL HISTORY Diagnosis Date - POTS (postural orthostatic tachycardia syndrome) History reviewed. No pertinent surgical history. SOCIAL HISTORY Social History Tobacco Use - Smoking status: Never Smoker - Smokeless tobacco: Never Used Substance Use Topics - Alcohol use: Not Currently - Drug use: Never FAMILY HISTORY Problem Relation Age of Onset - No Known Problems Mother - No Known Problems Father - No Known Problems Sister - No Known Problems Brother ALLERGIES: ALLERGIES No Known Allergies MEDICATIONS: POTASSIUM ORAL Take by mouth. sodium chloride 1 g tab Take 1 g by mouth once daily. pyridostigmine bromide 30 mg tab Take 60 mg by mouth. midodrine (PROAMATINE) 2.5 mg tablet Take 7.5 mg by mouth three times daily. citalopram hydrobromide (CELEXA) 10 mg tablet Take 10 mg by mouth once daily. REVIEW OF SYSTEMS: General, constitutional: Weight loss or gain-yes, Fever or chills-yes, Weakness-yes, Trouble sleeping-yes. Head, Eyes, Ears, Mouth: Headache, head injury-yes, Glasses or contact lenses-No, Pain-No, Impaired vision-No, Decreased hearing-No, Ringing in ears-No, Nose bleeds-No, Dental difficulties-No, Bleeding gums-No, Dentures-No. Neck: Swelling-No, Pain-No, Stiffness-No. Respiratory: Cough-No, Spitting up blood-No, Shortness of breath-yes, Wheezing or asthma-No. Musculoskeletal: Muscle or joint pain or stiffness-yes, Joint swelling-No. Gastrointestinal: Difficulty swallowing-No, Heartburn-yes, Change in bowel habits-No, Blood in stool, Dark black stools-No. Neurological/Psychiat liban: Weakness, paralysis-yes, Numbness-yes, Tingling-yes, Tremor-yes, Nervousness or anxiety-yes, Depressed mood-No, Memory loss-yes. Skin: Rash-No, Itching-No. Hematological: Easy bruising-No, Easy bleeding-No. Endocrine: Heat or cold intolerance-yes, Excessive sweating-yes, Frequent urination-yes, Frequent thirst-yes. Clemencia Calles RN PHYSICAL EXAMINATION: Ht 167.6 cm (5' 6 ) Wt 53.3 kg (117 lb 8 oz) BMI 18.96 kg/m? BP w/Orthostatic Vitals Date and Time Orthostatic BP Orthostatic Pulse BP Pulse BP Position BP Site BP Cuff Size 06/29/19 1517 107/65 98 -- -- Standing -- -- 06/29/19 1516 105/64 86 -- -- Sitting -- -- 06/29/19 1514 104/57 65 -- -- Supine -- -- I personally interviewed, examined, confirmed and edited the history documented by the Nurse. In addition to the below note, I attest that I have personally re-taken the History, confirmed the ROS, PMX, PSHx, Medications and re-performed the physical examination. Below reflects my service. Patient presents to the Department of Cardiology, Section of Cardiac Electrophysiology, [facility]onomic [facility], on June 29 at the request of PCP to investigate multiple symptoms as above for which she is undergone extensive local evaluation including assessment at the [facility] electrophysiology autonomic laboratory by Dr. pierson, tilt table testing, multiple drug trials, but continues to have events. My findings, recommendations, and plan of care will be added to the electronic medical record and forwarded to the [facility] physicians by [employer] [place] and to the patient and the local physicians by [place] mail. Patient is 19 years old without a history of diabetes structural heart disease or arrhythmias or hypertension. She began to experience above episodes in late 2018. Prior to that she apparently was well. She's been diagnosed with orthostatic intolerance orthostatic tachycardia and has tried multiple medications including midodrine, Florinef, Mestinon, but continues to have unusual episodes which can occur in multiple positions including occurring while supine awaking her from sleep. She has ongoing shortness of breath chest pain is undergone extensive evaluation. She was transferred from a local hospital on May 12, 2019 because of recurrent syncope possible seizures. There was concern for recent vaccination and staph skin infection and there was concern for endocarditis. She did have an elevated troponin of uncertain significance and was admitted to the medical intensive care unit of the [facility]. She underwent extensive evaluation including repeat troponins, extensive lab, and consultations with neurology and with cardiology. Dr. Wick recommended repeating troponin levels and consideration for cardiac MRI which has not been performed. She had EEG monitoring throughout. Echocardiogram did not disclose any tricuspid valve vegetations. She remained on midodrine during hospitalization low she's no longer taking it. While hospitalized she had no events, and the question of PNES or pseudo-syncope was raised. Since discharge she's been seen by autonomic neurology comprehensive autonomic and hemodynamic assessment was recommended. This morning she underwent extensive evaluation in epilepsy neurology. 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 She reviewed the video as did I showing an episode with her arms outstretched and an stiff during an episode. did not feel any further neurologic workup was needed at this point and no need for anticonvulsants. She advised that she work with a counselor on stress reduction. She has seen multiple physicians and copy chief locally and has been working extensively at the [facility] with autonomic neurology group who ordered extensive testing including QSART, comprehensive cardiovascular autonomic reflexes, radionuclide hemodynamic study and hemodynamic echo. Radionuclide hemodynamic study showed low cardiac index at baseline but a normal ejection fraction. During postural challenge there was only mild decline in cardiac index and cardiopulmonary volume suggesting no major venous pooling or hypovolemia. There was appropriate increase in total peripheral resistance indicative of normal reflexes. Echocardiogram confirmed normal LV size and function and no significant valvular disease. She underwent comprehensive cardiovascular autonomic reflexes which were normal. Heart rate response to deep breathing is normal via the mean heart rate range and the E:I ratio. Heart rate response to the Valsalva maneuver, as assessed by the Valsalva ratio, is normal as are the blood pressure responses to phase II and phase IV of the maneuver. Tilt table testing is not performed per the requisition completed by the referring provider. This is a normal cardiovascular autonomic test panel. There is no evidence of a cardiovagal or cardiovascular adrenergic abnormality. I don't have the tilt test results in the records provided, but Dr. Love DIRECTOR OF BRAND MARKETING states that there was a borderline increase in the heart rate 24 bpm. She had a prolonged ambulatory event monitor for 13 days in February in which no patient diary was submitted in no patient triggered events were reported. It showed normal sinus rhythm throughout occasional mild sinus tachycardia. She is scheduled for upcoming skin biopsy to rule out small fiber neuropathy, and a tilt table test. The patient has no known coronary artery disease, diabetes, hypertension, cancer, DVTs, PE, infarction, congenital heart disease, valvular heart disease, or congestive heart failure. The patient denies exertional angina, sustained palpitations, paroxysmal nocturnal dyspnea, peripheral edema, nitroglycerin use. The patient has no history of rheumatic disease, hepatic disease, renal disease, thyroid disease, or pulmonary disease. The patient has never had a temporary or permanent pacemaker, electrophysiologic study, ablation, cardiac catheterization, DC cardioversion or been treated with an anti-arrhythmic medication. The patient has never had a cardioembolic event, stroke, TIA, or been treated with coumadin or newer anticoagulation agents. The patient has never had a fat pad, muscle, nerve, skin or salivary biopsy, to rule out small fiber neuropathy, amyloidosis, mitochondrial disease, Sjogren's etc. Previous medications used: Midodrine-y Florinef-y Droxydopa-n Mestinon-y Beta blockers- Ivabradine-n Serotonin drugs-y Anticholinergics-n The comprehensive review of systems of the nurse practitioner was repeated and verified by me. I performed a comprehensive physical examination. PHYSICAL EXAMINATION GENERAL: Well developed, well-nourished female in no acute cardiopulmonary distress. HEENT: Extraocular movements intact, pupils equally reactive to light and accommodation without jugular venous distention, carotid bruits, lymphadenopathy, or thyromegaly. LUNGS: Clear to auscultation and percussion. HEART: Rate and rhythm regular without gallops, murmurs, or rubs. ABDOMEN: Soft without masses or hepatosplenomegaly. No pain, rebound, guarding, or rigidity. EXTREMITIES: Free of peripheral edema. Pulses are intact. NEUROLOGIC: Grossly normal without focal neurologic deficit or lateralizing signs. EKG reveals normal sinus rhythm, normal MS and QRS intervals, no evidence of long QT interval, accessory pathway, Brugada's syndrome, previous infarction, or early repolarization. Assessment/Plan:19-ye ar-old with recurrent episodes of altered awareness unresponsiveness accompanied by stiffness and shaking clenched fist chest pain and other symptoms occurring in all positions including supine, and occasionally beginning during sleep which would be very unusual for orthostatic hypotension or, arrhythmias, or vasovagal syncope. We had an extensive discussion about our current understanding and approach to patients with orthostatic intolerance and how there is no unified theory about the pathophysiology and etiology of the relatively enigmatic disorder, but that our approaches focuses on investigation of underlying hemodynamic, cardiovascular and neurologic causes. Neurology suspects that at least some of the episodes may be PNES and had made recommendations to the patient It's possible that she may also have concomitant vasovagal despite the negative tilt and I would endorse the perfunctory, empiric, nonpharmacologic approaches to autonomic dysfunction symptom amelioration including 5-7 g sodium diet, 1 or 2 L of sports drinks daily, knee-high, thigh-high or waist-high custom fitted compression stockings. 4-6 inch elevation of the head of the bed, and regular exercise, which could initially consist of non-gravitational exercise, so called Olson protocol, consisting of aqua therapy, water walking, recumbent bike, NuStep, rowing machine et cetera, 3 or 4 times a week, 30-40 minutes and progressing to conventional exercise as tolerated. The patient should practice, learn and regularly implement the so called vasovagal abortive counter pressure counter measure maneuvers which are simply isometric exercises of the upper and lower extremities called leg crossing and arm tensing, which are be performed on a regular basis and practice, and applied during the patient's syncopal prodrome. We'll provide her with an ambulatory event monitor. Proceed with the skin biopsy and the repeat tilt test. I would suggest that we add EEG to the tilt protocol. I suggested they contact my office in a week or so after the tests to review preliminary results and recommendations with my nurse practitioner and I will provide detailed summary of their visit with my suggestions. This note was partially generated using [employer] voice recognition system, and there may be some incorrect words, spellings, and punctuation that were not noted in checking the note before saving. Homer Weiss DO CC: Shanae Weeks [phone] (Work) [address] [place] [phone] Nurse Practitioner [facility] [address] [place] [phone] henri Gamboa Neurology [place] Yordy garcia [facility] PROGRESS HNO ID: [id number] Author: Ousmane Gamboa Service: ? Author Type: Physician Type: Progress Notes Filed: 07/11/2019 2:46 PM Note Text: .[facility] Patient Name: Fadia Lan Date of : 2000 CLINIC NOTE - INITIAL VISIT CHIEF COMPLAINT: spells, here for further evaluation and treatment. CONSULTING DOCTOR: PRESENT ILLNESS: This is a 18 year old right-handed female who presents with a chief complaint of spells. The patient was accompanied by her parents at this clinic visit. She had immunication in November of 2018, infection in December of 2018, one month later, her spells began. Feb 2019, she had spell of passing out at high school, she was in class, felt her head bobing, eyes dropping, as she went down stairs duirng a drill, she was about to pass out but she was caught by a police academy instructor, she has LOC of unknown duration. 30 mins later, mother came to school, the patient was confused, slurred speech, she looked pale. She was admitted to a local hospital, some elevation of troponin. One week later, she had a similar episodes at school, she had SOB, hands trembling, she thought she was hungary, she went to [employer], she started to drove home, somehow, she had LOC, her car was in parked (but she did not remember), the patient called her parents she was in the ditch , at time the parents to her side, she looked pale, slurred and lethragic, she was admitted to the same local hospital for a few days: repeated Echo, troponin still elevated. At of end of Mar, +chest pain, dont feel good, or lightheadedness, dizziness, stomach sick, mild headache sometimes, then +LOC and fell down (no injury so far), while she was passed out, she had twitching arms, shoulders, fingers clawed, making noses. Over the time, her spells progressed more symptoms: head to side to side movement, eyes closed, legs kicking movement, arms flaining movement, breath holding, face turned blue, teeth clenched, hands clawed and toes curled up, body stiffening. She had tongue biting on a couple occasions. She had 7 episodes on 05/10/2019. On Occasion, she had spells during night sleep, she fell off the bed. The last episodes was Jun 20, 2019. She had EEGs done in Feb, it was normal. She had another 3 day-EEG on 05/18/2019 after she left [facility]. She had a mild spells recorded on EEG. The neurologist called psychgenic seizures but wanted to give her LEV which made her having odd behavior, she was then prescribed Lamotrigine. She is doing online, she wants going back to school. I Triggers, physical exhaustion, At age of 13 yr, she had a concussion in gym, no LOC, but feeling dizziness She was diagnosed of having POTs in [place] in Mar. Psychosocial: No depression, no anxiety. Insomnia. 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 Driving: not for now. PRIOR ANTICONVULSANT HISTORY: LEV, Following AEDs were associated with side effects: LEV (bizare behavior) PREVIOUS OSH EVALUATIONS: BEM 05/12/2019-05/16/2019: normal MRI w/wo 03/15/2019 Normal ? ========= Neurology consultation 05/12/2019; ? Ramesh Scales MD HPI: This is Ms. Fadia Lan a 18 year old female with recent diagnosis of POTS who was transferred from an OSH after having episodes concerning for seizures. History was provided by patient and her mother. ? In November 2018 she had vaccinations including HPV, Hep, and meningococcal. 2-3 weeks afterwards, she developed a skin rash on right foot and groin region. She was told it was staph, given antibiotics then steroids. The rash spread into blistering regions, so she was seen by Dermatology who treated further for Staph infection, which was healed by mid-January. ? March 01 she came home from high school after having passed out. When parents arrived she had slurred speech, was drowsy, dry heaving. She was taken to ED where Troponin level was elevated, she was admitted where ECHO showed possible density on Tricuspid valve, which was later thought to be tissue. After coming home, she left school again due to dizziness, shortness of breath, tremors, was re-evaluated in ED. This time had 30 minute EEG which per parents was normal. ? Since then, she has had progressive symptoms. Episodes of losing consciousness occurred 1-2 times per week, increasing to one every other day for the past week, and seven episodes yesterday. Per mother episodes include: feeling of nausea, sometimes chest pain, lightheadedness, then she loses consciousness from a couple minutes up to 15 minutes. Shaking movements vary in intensity from small tremors to clenching fists, flexing at elbows and curling toes. The episodes yesterday worsened in intensity to the point of foaming at mouth, head shaking no , eyes closed. Per her mother sometimes she cries and holds her chest. No incontinence but bit her tongue once 4 days ago. Episodes tend to occur in the evenings or early breastfeeding care specialist (3AM-5AM- per mother she is awake prior to episodes). Can be sitting or standing. Only one seemed to be out of sleep (her sister found her shaking in bed in the morning). ? In between episodes she has nausea, intermittent chest pain and shortness of breath, dry heaves, occasional vomiting, intermittent blurry vision, headaches. ? Since she had 7 episodes yesterday, family took her to local ED, then transferred to [facility] for further management. Prior work-up includes EEG, MRI Brain w/wo contrast on 03/15 which was normal, and Tilt table testing per mother she did not meet full criteria of POTS, but she was started on medication to treat for possible POTS, which has not helped. ? She denied history of seizures, meningitis, no FH of seizures. She had one concussion 4 years ago after head injury while playing [employer] ball. She denied smoking, drinking alcohol, and drug use. She is currently having problems with insomnia. She denied significant stress. She has had to stay home from high school and quit her job at [employer] due to episodes. ? Impression/Recommenda tions This is Ms. Fadia Lan a 18 year old female with recent diagnosis of POTS who was transferred from an OSH after having episodes concerning for seizures. Episodes started in 02/2019 which occurred a couple weeks after vaccinations and after having a Staph skin infection. Since then, episodes have increased in frequency and intensity, described as: starting with nausea, lightheadedness, followed by loss of consciousness and shaking movements, which can range from small tremors to more intense movements with clenched fits and curled toes. She occasionally cries and grabs for chest, no incontinence but bit tongue once. Only seizure risk factor includes one concussion four year ago. Prior work-up includes EEG, MRI Brain w/wo contrast on 03/15 which was normal, and Tilt table testing per mother she did not meet full criteria of POTS, but she was started on medication to treat for possible POTS, which has not helped. ? Neurological examination is non-focal. Specifically strength is intact, reflexes intact and equal, no sensory or coordination deficits. ? Differential includes convulsive syncope (possible POTS) versus seizure. Certain components of the events are unusual for seizure (varying in intensity, duration up to 15 minutes, crying and grabbing at chest). She also has prodrome of nausea and lightheadedness which are more likely syncopal. However she may have had one episode out of sleep (?) which would be unusual for syncope. Cardiology has been consulted to further evaluate possible tricuspid valve abnormality. Recommend further evaluation with prolonged EEG monitoring. Brain Tumor NA FUR IRONER Infections NA Developmental Delay NA Family history of epilepsy NA Febrile Seizure NA Complications NA Stroke NA Traumatic Brain Injury NA CURRENT MEDICATIONS: POTASSIUM ORAL Take by mouth. perflutren lipid microspheres (DEFINITY) 1.1 mg/mL injection (to be provided with echo procedure) Inject 1.3 mL intravenously as directed. Administration Instructions: If no IV access, insert saline lock prior to administering contrast. Discontinue saline lock post exam. If patient has central line or IVAD, may access for administration according to line specific nursing protocol. Once exam is complete, flush line and de-access per line specific nursing protocol. Diluted IV Bolus: Dilute 1.3 ml of Definity with 8.7 ml of preservative-free saline. sodium chloride 1 g tab Take 1 g by mouth once daily. pyridostigmine bromide 30 mg tab Take 60 mg by mouth. midodrine (PROAMATINE) 2.5 mg tablet Take 7.5 mg by mouth three times daily. citalopram hydrobromide (CELEXA) 10 mg tablet Take 10 mg by mouth once daily. PAST MEDICAL HISTORY: No past medical history on file. No past medical history pertinent negatives. PAST SURGICAL HISTORY: No past surgical history on file. FAMILY MEDICAL HISTORY: No family history on file. SOCIAL HISTORY: Social History Tobacco Use - Smoking status: Never Smoker - Smokeless tobacco: Never Used Substance Use Topics - Alcohol use: Not Currently - Drug use: Not on file REVIEW OF SYSTEMS: CONST: no change in weight; no lightheadedness; no fevers, chills, or night sweats. There have been no headaches. EYES: no double vision; no blurred vision ENT: no change in hearing; no trouble swallowin no memory loss CARD: no chest pain or palpitations, no leg edema RESP: no shortness of breath or cough : no urinary urgency, frequency, or hematuria GI: no abdominal pain or change in bowel habits MUSC: no joint pain or swelling, no muscle or back pain PSYCH: no change in mood or sleep patterns HEME: no bruising, bleeding, or swollen glands. All other organ systems are negative. GENERAL EXAMINATION: There were no vitals taken for this visit. General Appearance: in no acute distress. HEENT: There are no facial dysmorphic features. Normocephalic. SKIN: no rashes. Normal color. EXTREMITIES: no edema NEUROLOGICAL EXAM: The patient's speech, affect, and cognition appear normal. Normal eye movements. No nystagmus noted. No facial asymmetry,hearing intact. Muscle Bulk are normal. There is no tremor GAIT is steady. OTHER RELEVANT LABS AND TEST: Routine EEG today IMPRESSION: The patient's shaking spells per family description and home video is suggestive of PNES with stressor of recent illness which affects her senior high school academic activities. She had BEM recording for several days at [facility] in May 2019 with normal EEG. After she was discharged from [facility], she had ambulatory EEG recording arranged by her local neurologist, she had her spells recorded, and was told by her neurologist that she has PNES and was recommended to see a psychologist. Discussed shaking/seizure like spells are PNES, she needs to work on her stress, she has a consoler at her high school. PLAN: No need for further tests for epilepsy. 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 The patient is eager to return back to school, to finish up last a few months of high school and graduate on time. From standpoint of epilepsy, she does not have epilepsy/seizures, she should be allowed to return back to school, not been able to return to school is another big stress for her (could be contribute of her current PNES). Continue to complete visit and work up with cardiology and autonomic workup per neurology. No driving, no height and practice safety precaution. Ousmane Gamboa MD PhD Staff, [facility] [place], [place] cc: Primary Care Physician: Danilo Dinero MD [address] [facility] [address] Referring Physician: SELF Ms. Loaiza Saam [address] [facility] [address] Normal [facility] CNOVon 06-15-2019 CNOV Office Visit (SYNCMN ) DEREKFADIA Benedict ([id number]) 1 F Date Time Provider Department 06/15/19 9:00 AM HEMODYNAMIC LAB SYNCMN During your visit today, we recorded the following information about you: HE Garcia, Tech 06/28/2019 7:35 AM Signed UNIVERSAL PROTOCOL / SAFETY CHECKLIST Procedure to be performed: [facility]: RADIOISOTOPE STUDY FOR Hemodynamics with Echocardiogram Sign in Communication: Completed Time Out: Team Confirms the Correct Patient, Correct Procedure, Correct Site and Site Marking, Correct Position (if applicable). Time: 9:33 Affirmation of Time Out: N/A Sign Out Discussion: Completed HE Chinchilla Orders placed 06/04/19 by Flavio rTan CNP Allergies: Patient has no known allergies.* Sex: Female or possibilty of ? no: pt declines test. Procedure Start Time : 9:30 Height 161.6 cm Weight 54.8 kg Patient fasting for 4 hours: Yes Support stockings taken off for procedure: Not applicable Pain Assessment: Patient states none Comfort Measures: Added pillow under knees and [place] Pacemaker: No Other Blood work:None Hemodynamic Tests: Dinamap: Standard Cuff on left Arm Cardiac outputs with Tc 99m via 22 ga angio in right median antecubital. Cold PYP 1.5 ml at 10:06 by DC. Baseline:Trivial SA; MS 140 ms #1: Supine 4.0 mCi at 10:37 by KB BP: 93/57; HR: 65 Moderate SA #2: Supine 8.1 mCi at 10:50 by KB BP: 98/59; HR: 65 Moderate SA #3: HUP60d L-DN 11.8 mCi at 11:07 by KB BP:104/65; HR: 81Mild SA Signature: HOMER Garcia CNMT Ejection Fraction - POLISH-Gated: BP: 98/54, HR: 66, MGAQ-HR: 69 Mild SA Note: Test completed uneventfully. KB. IV discontinued at 11:40 by SAIDA. Cardale Security card received: yes. Staff involved in procedure: HOMER Garcia, FIELD RETURN REPAIRER; Shameka Gray, RN, Parris Mario,[facility] Procedure Finish Time: 11:40 Referring Provider: FLAVIO TRAN ([facility]) [[id number]] Allergies As of Date: 06/15/2019 (No Known Allergies) Date Reviewed: 06/04/2019 Reviewed by: Flavio ([facility]) Melissa - Fully Assessed Primary Visit Diagnosis:Syncope, unspecified syncope type [R55] Other Visit Diagnoses:Syncope and collapse [R55] Near syncope [R55] Chest pain, unspecified type [R07.9] Orthostatic dizziness [R42] Orthostatic lightheadedness [R42] Encounter for examination of blood pressure without abnormal findings [Z01.30] Order(s):HEMODYNAMIC ECHOCARDIOGRAM [[id number]] Order #: [id number]. #:[id number] FQty: 1 SALINE LOCK DISCONTINUE [[id number]] Order #: [id number]: 1 Prescriptions as of 06/15/2019 Sig: POTASSIUM ORAL Take by mouth. PERFLUTREN LIPID MICROSPHERES* Inject 1.3 mL intravenously a* SODIUM CHLORIDE 1 GRAM TAB Take 1 g by mouth once daily. PYRIDOSTIGMINE BROMIDE 30 MG * Take 60 mg by mouth. MIDODRINE 2.5 MG TABLET Take 7.5 mg by mouth three ti* CITALOPRAM 10 MG TABLET Take 10 mg by mouth once verónica* Problem List As Of Date 06/15/2019 Noted Resolved Seizure-like activity (HCC) [R56.9] 05/12/2019 Syncope [R55] 05/13/2019 More... Other chest pain [R07.89] 05/13/2019 More... Elevated troponin [R79.89] 05/13/2019 More... Encounter Status:Closed by BENIGNO TAYLOR on 06/28/19 Normal [facility] PROGRESSon 06-15-2019 PROGRESS HNO ID: [id number] Author: Debbie Chinchilla (Tech) Service: ? Author Type: Blueprinter Type: Progress Notes Filed: 06/28/2019 7:35 AM Note Text: UNIVERSAL PROTOCOL / SAFETY CHECKLIST Procedure to be performed: [facility]: RADIOISOTOPE STUDY FOR Hemodynamics with Echocardiogram Sign in Communication: Completed Time Out: Team Confirms the Correct Patient, Correct Procedure, Correct Site and Site Marking, Correct Position (if applicable). Time: 9:33 Affirmation of Time Out: N/A Sign Out Discussion: Completed HE Chinchilla Orders placed 06/04/19 by Flavio Tran CNP Allergies: Patient has no known allergies.* Sex: Female or possibilty of ? no: pt declines test. Procedure Start Time : 9:30 Height 161.6 cm Weight 54.8 kg Patient fasting for 4 hours: Yes Support stockings taken off for procedure: Not applicable Pain Assessment: Patient states none Comfort Measures: Added pillow under knees and [place] Pacemaker: No Other Blood work:None Hemodynamic Tests: Dinamap: Standard Cuff on left Arm Cardiac outputs with Tc 99m via 22 ga angio in right median antecubital. Cold PYP 1.5 ml at 10:06 by DC. Baseline:Trivial SA; MS 140 ms #1: Supine 4.0 mCi at 10:37 by KB BP: 93/57; HR: 65 Moderate SA #2: Supine 8.1 mCi at 10:50 by KB BP: 98/59; HR: 65 Moderate SA #3: HUP60d L-DN 11.8 mCi at 11:07 by KB BP:104/65; HR: 81Mild SA Signature: HOMER Garcia, HE Ejection Fraction - POLISH-Gated: BP: 98/54, HR: 66, MGAQ-HR: 69 Mild SA Note: Test completed uneventfully. KB. IV discontinued at 11:40 by KB. Cardale Security card received: yes. Staff involved in procedure: HOMER Garcia, HE; Shameka Gray RN, Parris MarioALISSA Procedure Finish Time: 11:40 Normal [facility] CNOVon 06-04-2019 CNOV Office Visit (NEADMN ) FADIA LAN ([id number]) 1 F Date Time Provider Department 06/04/19 1:00 PM FLAVIO TRAN (JOSE) AQUILINO During your visit today, we recorded the following information about you: Pulse Respiration Blood pressure Weight 89/minute 18/minute 115/68 54.9 kg Height 1.676 m Flavio Tran APRN.JOSE 06/04/2019 2:07 PM Signed Fadia Lan is a 18 year old female. Patient presents with: New Patient Fadia is a right handed female here today for evaluation. Her mother states November 28, 2018 that she had immunizations given. She had a staph infection that developed 2 weeks after the immunization in her pubic area and also in her under arm areas. She states that she went to her family doctor and was treated initially as a poison sendy who gave her steroid cream. It did not treat the rash and thus was sent to dermatology. Dermatology collected samples that were positive for staph. She was given Keflex that took care of the staph infection within 2 weeks. From the time the rash appeared to it being treated it took 1.5 months. She states that in February 2019 she was sitting in class and felt ill and fatigued. She was walking down to the office and as she walking she had a syncopal episode, but was caught by a police academy instructor. Her parents came to the school and upon arrival she was quite pale, slurred speech, dry heaving, vomiting, and lethargic. She was unable to get up on her own. She was taken to local ER. She had a CT Brain completed that was normal. She had CXR that was normal. She was found to have high troponin's and thus she was admitted. She had an echocardiogram done that showed possible issue of a heart valve. She had an EEG done as well that was normal. She was discharged home. She states a few days after this she felt dizzy, lightheaded, chest pain that occurred while driving. She stopped on the side of the road and she was quite lethargic so her dad came to pick her up. She got home and laid down on the floor due to feeling of near syncope. She had to go to the ER again March 2019. Again, she was found to have an elevated troponin level. She was admitted again to the hospital and further workup and another echocardiogram. She had low blood pressure and high heart rate. She was released from the hospital with a Holter Monitor on that per the patient was essentially normal with brief periods of tachycardia. She was thus referred to [facility] for workup of POTS. She saw Dr. Mendez's DIRECTOR OF BRAND MARKETING Josi. She had a tilt table test that per the patient was borderline. She was diagnosed with syncope and orthostatic intolerance. She was prescribed fludrocortisone that she tried for two weeks and then had the dose increased. The fludrocortisone was not working well. She was then prescribed pyridostigmine. Apparently odd side effect of blood in her mouth on this and thus it was discontinued. She was instructed to go to her family doctor by [facility]. Her mother states that in April 2019 that she appeared to develop seizures. Mild tremors/shaking and some jerking. Mother states it was seizure like. She was recommended to see a neurologist. EEG was wanted, but apparently had recurrent episodes of syncope and what appeared to be a seizure x7 per the mother. Events typically will occur after being upright most of the time. Worsened after exertion of energy. Can occur sometimes when flat. She had a recent admission to [facility] with EEG monitoring done for 5 days that was normal. She was started on midodrine 7.5 mg TID for her recurrent low blood pressures. Blood pressures are still quite low even while on the midodrine. She has a syncopal episode 1 time per day typically. Top 3-5 symptoms daily: 1. Nausea 2. Weakness 3. Fatigue 4. Dizzy/lightheaded 5. Chest pain/tachycardia OARRS reviewed KP data reviewed if done COMPASS 31 reviewed as 31 point autonomic review of systems questions THIS NOTE IS FOR AT FIRST FOR MY DOCUMENTATION TO PROVIDE CARE, HELP INSURANCE COMPANY AND COLLEAGUES TO HAVE NEUROLOGICAL CONTEXT OF MY , AND FOR MY PERSONAL RECORDING TO FACILITATE FUTURE CARE BY HAVING A WRITTEN DOCUMENT MEMORY OF OUR CONSULT TOGETHER . THANK YOU FOR UNDERSTANDING THIS OFFICE NOTE IS A PHYSICIAN BASED DOCUMENT FOR COMMUNICATION AND CARE. She is brought in today by her mother and father. Medications Reviewed POTASSIUM ORAL Take by mouth. sodium chloride 1 g tab Take 1 g by mouth once daily. pyridostigmine bromide 30 mg tab Take 60 mg by mouth. midodrine (PROAMATINE) 2.5 mg tablet Take 7.5 mg by mouth three times daily. citalopram hydrobromide (CELEXA) 10 mg tablet Take 10 mg by mouth once daily. perflutren lipid microspheres (DEFINITY) 1.1 mg/mL injection (to be provided with echo procedure) Inject 1.3 mL intravenously as directed. Administration Instructions: If no IV access, insert saline lock prior to administering contrast. Discontinue saline lock post exam. If patient has central line or IVAD, may access for administration according to line specific nursing protocol. Once exam is complete, flush line and de-access per line specific nursing protocol. Diluted IV Bolus: Dilute 1.3 ml of Definity with 8.7 ml of preservative-free saline. Allergies Reviewed NKA PAST MEDICAL HISTORY: ACTIVE PROBLEM LIST Seizure-Like Activity (Hcc) Syncope Other Chest Pain Elevated Troponin History reviewed. No pertinent surgical history. Social History Tobacco Use - Smoking status: Never Smoker - Smokeless tobacco: Never Used Substance Use Topics - Alcohol use: Not Currently - Drug use: Not on file family history is not on file. Autonomic check list: YES (Y) or NO (N) Dry mouth Y Dry eyes N Change in sweat Y (increased) Constipation N Abdominal Bloating with shortly after eating Y Fluctuation of diarrhea and constipation N Urination N Change in taste Y Challenge swallowing foods N Skin changes of blue or redness to distal limbs N Fainting /near syncope/syncope Y Dizziness Y Light headiness Y Chest pain Y Challenge in breathing Y Tachycardia Y Temperature Regulation Y Bright lights GENERAL:No weight loss, malaise or fevers., SEE HPI HEENT:SEE HPI NECK:Negative for lumps, goiter, pain and significant neck swelling RESPIRATORY: See HPI CARDIOVASCULAR: See HPI GASTROINTESTINAL: Negative for abdominal discomfort, blood in stools or black stools or change in bowel habits GENITOURINARY: No history of dysuria, frequency or incontinence MUSKULOSKELETAL: Negative for joint pain or swelling, back pain or muscle pain. NEUROLOGIC:See HPI SKIN:Negative for lesions, rash, and itching. PSYCHIATRIC: Negative for sleep disturbance, mood disorder and recent psychosocial stressors. HEMATOLOGIC/LYMPHATIC /IMMUNOLOGIC:Negative for prolonged bleeding, bruising easily or swollen nodes. ENDOCRINE: Negative for cold or heat intolerance, polyuria, polydipsia and goiter. GLAUCOMA: No 06/04/19 1233 06/04/19 1329 06/04/19 1330 06/04/19 1331 BP: 102/58 109/62 114/69 115/68 BP Position: Supine Sitting Standing Pulse: 72 63 90 89 Resp: 18 Weight: 54.9 kg (121 lb) Height: 167.6 cm (5' 6 ) General Appearance Patient appears well at the time of this appointment. Cardiovascular Examination: No carotid bruit noted Heart has regular rate and rhythm Pulses equal bilaterally Neurological Examination: Cognition: The patient is alert and oriented times three Lucid and organized in conversation Able to tell detailed medical hx Speech is Normal in fluency volume and clarity Content and Syntax: Normal Comprehension: Normal, able to follow several step commands Cranial Nerves: Pupils are equal and reactive to light. Mydriatic pupils Extraocular movements are grossly intact Good saccades and pursuits No nystagmus Hearing intact Good upgaze Visual webb are full to confrontation. Facial, motor and sensory exam is symmetric Equal v1,V2, V3 Tongue is in midline. No tongue fasciculation. Palate is upgoing bilaterally SCM and trapezius are full. Shoulder shrug intact ? Motor Exam: ? Upper extremity motor exam is 5/5 in deltoid, 5/5 triceps 5/5biceps, 5/5 wrist extension, and 5/5 hand side panel padder. Finger extensor 5/5. Finger flexor 5/5. Pronation and Supination are full. Full interossei 5/5 ? Lower extremity is 5/5 in IP, 5/5 quadriceps, 5/5 hamstrings, 5/5 EHL, 5/5 TA and 5/5 gastrocnemius. Hip abductors and adductors are 5/5 Toe extensors and flexors are full bilaterally. Foot evertors and inversions are full bilaterally Tone and bulk is normal and preserved bilaterally of arms Tone and bulk is normal and preserved bilaterally of legs No pes cavus, hammer toes, champagne legs ? The patient is without significant pronator drift. ? Sensation: Decreased pinprick sensation of bilaterally of feet that improves with proximity to core. Normal toe position and vibratory sensation. Romberg's sign absent ? Reflexes: 2/4triceps, 2/4biceps, 2/4brachioradialis, 3/4knee jerk, 2/4ankle jerk and symmetric, toes are Down going (Negative Babinski). No clonus of ankles. ? Coordination: Finger-to- nose-finger and axtd-iu-cksh intact bilaterally. No ataxia of arms. No limb dysmetria of arms and legs. or trunk. ALISIA of pronation and supination, finger and hand tapping intact. Toe tapping intact. There is no asterixis of the hands. No rigidity, cog wheeling, no bradykinesia. No tremors No extrapyramidal findings ? Gait: Normal station and stride. Able to tandem. Able to heel and toe walk. Good arm swing and body turn rises from chair well IMPRESSION/PLAN: Syncope and collapse Fadia is here today for issue of syncope. She notes that her symptoms all began after immunizations in November 2018. She notes that post-immunizations, she developed an odd rash that was under her arms and also in the groin region. She was found to have a staph infection and was treated with Keflex. After this infection, she notes issue of syncope and seizure like activity that has been ongoing over the last 5 months. She has had thorough workup and evaluation that includes EEG, ECG, Echo, MRI Brain that were essentially normal per review. She had tilt table testing done at [facility] that I do not have record of, but per the patient and mother were borderline for postural orthostatic tachycardia syndrome. She has been tried for her episodes of syncope and low blood pressure on midodrine, florinef, and pyridostigmine, but episodes persist. Her orthostatic vital signs are stable today. Her neurological exam shows decreased pinprick sensation of her feet bilaterally, but otherwise normal. Due to her ongoing issues of syncope, will order the followin. ECG 2. Hemodynamic echocardiogram 3. Tilt table evaluation 4. Skin biopsy for neuropathy 5. Labs for sensory loss 6. Consult to epilepsy center---my concern is for convulsive syncope vs. SOFIA given normal EEG testing inpatient and outpatient. During our face to face clinical encounter we discussed my concerns neurologically in terms of diagnosis, impact on health and activities of living, and addressed questions. I tried to reassure the patient and also address questions. I explained to the patient to call if any questions, to review results, and I want to see them return for neurological follow up as mychart as next steps of communication is agreed upon Patient verbalizes understanding and I have addressed concerns and questions at this visit Patient has my contacts, educational material provided, and my chart sign up. After visit summary discussed. I spent 60 minutes in the visit, with more than 50% of the total [id number] time of the visit in counseling / coordination of care. ACTIVE PROBLEM LIST Seizure-Like Activity (Hcc) Syncope Other Chest Pain Elevated Troponin Office Visit on 06/04/19 - NEURO CARDIO AUTONOMIC REFLEX W/WO TILT - SKIN BIOPSY FOR NEUROPATHY/CNL - HEMODYNAMIC TILT W/IV START - VITAMIN B12 BLOOD - VITAMIN B1 (THIAMINE), WHOLE BLOOD - VITAMIN B6/PYRIDOXIN - METHYLMALONIC ACID - COPPER BLOOD - IMMUNOFIXATION SCREEN, SERUM - CONSULT TO NEUROLOGY - ECG COMPLETE - HEMODYNAMIC ECHOCARDIOGRAM - TILT TABLE EVALUATION Flavio Tran MSN, BICYCLE SERVICE TECHNICIAN, INNOVATION ANALYST-C 1. This office note has been dictated and may contain minor typographic errors that escaped review 2. The nursing staff and medical assistants are a major part of YOUR TREATMENT TEAM and will be handling your phone calls and inquiries, if any. Unless explicitly told otherwise at the time of your office visit, your study results and ensuing treatment plans will be discussed during your follow-up appointment. If you do not have a follow-up appointment and wish to discuss any issues directly with me, please feel free to obtain one. 3. It is my practice to not fill disability or any other insurance-related forms/documention. All of the office notes, study results, and other pertinent documentation generated as part of your evaluation will be available to you and to your Primary Care Physician (PCP). Use of this material to complete such forms will be at the discretion of your PCP/referring physician Referring Provider: SELF [[id number]] Allergies As of Date: 06/04/2019 (No Known Allergies) Date Reviewed: 06/04/2019 Reviewed by: Flavio ([facility]) Melissa - Fully Assessed Reason for Visit: New Patient [172] Primary Visit Diagnosis:Syncope and collapse [R55] Other Visit Diagnoses:Near syncope [R55] Chest pain, unspecified type [R07.9] Orthostatic dizziness [R42] Orthostatic lightheadedness [R42] Disturbance of skin sensation [R20.9] Order(s):ECG COMPLETE [ECG01] Order #: [id number] FUTURE HEMODYNAMIC ECHOCARDIOGRAM [[id number]] Order #: [id number]: 1 FUTURE perflutren lipid microspheres (DEFINITY) 1.1 mg/mL injection (to be provided with echo procedure)Inject 1.3 mL intravenously as directed. Administration Instructions: If no IV access, insert saline lock prior to administering contrast. Discontinue saline lock post exam. If patient has central line or IVAD, may access for administration according to line specific nursing protocol. Once exam is complete, flush line and de-access per line specific nursing protocol. Diluted IV Bolus: Dilute 1.3 ml of Definity with 8.7 ml of preservative-free saline.Disp: 1.3 mLRfl: 0 TILT TABLE EVALUATION [[id number]] Order #: [id number]: 1 NEURO CARDIO AUTONOMIC REFLEX W/WO TILT [[id number]] Order #: [id number] SKIN BIOPSY FOR NEUROPATHY/CNL [[id number]] Order #: [id number] CONSULT TO NEUROLOGY [9019] Order #: [id number]: 1 FUTURE HEMODYNAMIC TILT W/IV START [[id number]] Order #: [id number]: 1 VITAMIN B12 BLOOD [SQB12] Order #: [id number] FUTURE VITAMIN B1 (THIAMINE), WHOLE BLOOD [SQB1WB] Order #: [id number] FUTURE VITAMIN B6/PYRIDOXIN [SQVITB6] Order #: [id number] FUTURE METHYLMALONIC ACID [SQMMA] Order #: [id number] FUTURE COPPER BLOOD [SQCOPPER] Order #: [id number] FUTURE IMMUNOFIXATION SCREEN, SERUM [SQIFESC] Order #: [id number] FUTURE Prescriptions as of 06/04/2019 Sig: POTASSIUM ORAL Take by mouth. SODIUM CHLORIDE 1 GRAM TAB Take 1 g by mouth once daily. PYRIDOSTIGMINE BROMIDE 30 MG * Take 60 mg by mouth. MIDODRINE 2.5 MG TABLET Take 7.5 mg by mouth three ti* CITALOPRAM 10 MG TABLET Take 10 mg by mouth once verónica* PERFLUTREN LIPID MICROSPHERES* Inject 1.3 mL intravenously a* Problem List As Of Date 06/04/2019 Noted Resolved Seizure-like activity (HCC) [R56.9] 05/12/2019 Syncope [R55] 05/13/2019 More... Other chest pain [R07.89] 05/13/2019 More... Elevated troponin [R79.89] 05/13/2019 More... Prescriptions ordered this encounter Disp Refills Start End PERFLUTREN LIPID MICROSPHERES 1.1 MG* 1.3 * 0 06/04/2019 06/03/2020 Class: In Office Route: INTRAVENOUS Sig: Inject 1.3 mL intravenously as directed. Administration Instructions: If no IV access, insert saline lock prior to administering contrast. Discontinue saline lock post exam. If patient has central line or IVAD, may access for administration according to line specific nursing protocol. Once exam is complete, flush line and de-access per line specific nursing protocol. Diluted IV Bolus: Dilute 1.3 ml of Definity with 8.7 ml of preservative-free saline. Encounter Status:Closed by FLAVIO TRAN on 06/04/19 Normal [facility] Copperon 06-04-2019 Copper 76 ug/dL Low 85-155 [facility] Comment on above: Result Comment: This test was developed and its performance characteristics determined by [facility] [place] ( [facility]). It has not been cleared or approved by the FDA. [facility] is regulated under CLIA as qualified to perform high complexity testing. This test is used for clinical purposes. It should not be regarded as investigational or for research. Performed By: #### C BC, CMP, MG1, PHOS #### [facility] [employer] [address] [place], [place] [address] SONI Screen, Serumon 06-04-20 19 Protein [Mass/Vol] No M protein is identified. Normal No M protein is identified. [facility] Comment on above: Performed By: #### C BC, CMP, MG1, PHOS #### [facility] [address] [place], [place] [address] Staff Review Reviewed by Lyla Hoyos MD. ([id number]) Normal [facility] Comment on above: Performed By: #### C BC, CMP, MG1, PHOS #### [facility] [address] [place], [place] [address] Methylmalonic Acidon 019 Methylmalonic Acid 161 nmol/L Normal 79-376 [facility] Comment on above: Result Comment: This test was developed and its performance characteristics determined by [facility] [place] ( [facility]). It has not been cleared or approved by the FDA. [facility] is regulated under CLIA as qualified to perform high complexity testing. This test is used for clinical purposes. It should not be regarded as investigational or for research. Performed By: #### C BC, CMP, MG1, PHOS #### [facility] [address] [place], [place] [address] PROGRESSon 06-04-2019 PROGRESS HNO ID: [id number] Author: Flavio Tran Service: ? Author Type: Nurse Practitioner Type: Progress Notes Filed: 06/04/2019 2:07 PM Note Text: Fadia Lan is a 18 year old female. Patient presents with: New Patient Fadia is a right handed female here today for evaluation. Her mother states November 28, 2018 that she had immunizations given. She had a staph infection that developed 2 weeks after the immunization in her pubic area and also in her under arm areas. She states that she went to her family doctor and was treated initially as a poison sendy who gave her steroid cream. It did not treat the rash and thus was sent to dermatology. Dermatology collected samples that were positive for staph. She was given Keflex that took care of the staph infection within 2 weeks. From the time the rash appeared to it being treated it took 1.5 months. She states that in February 2019 she was sitting in class and felt ill and fatigued. She was walking down to the office and as she walking she had a syncopal episode, but was caught by a police academy instructor. Her parents came to the school and upon arrival she was quite pale, slurred speech, dry heaving, vomiting, and lethargic. She was unable to get up on her own. She was taken to local ER. She had a CT Brain completed that was normal. She had CXR that was normal. She was found to have high troponin's and thus she was admitted. She had an echocardiogram done that showed possible issue of a heart valve. She had an EEG done as well that was normal. She was discharged home. She states a few days after this she felt dizzy, lightheaded, chest pain that occurred while driving. She stopped on the side of the road and she was quite lethargic so her dad came to pick her up. She got home and laid down on the floor due to feeling of near syncope. She had to go to the ER again March 2019. Again, she was found to have an elevated troponin level. She was admitted again to the hospital and further workup and another echocardiogram. She had low blood pressure and high heart rate. She was released from the hospital with a Holter Monitor on that per the patient was essentially normal with brief periods of tachycardia. She was thus referred to [facility] for workup of POTS. She saw Dr. Mendez's DIRECTOR OF BRAND MARKETING Josi. She had a tilt table test that per the patient was borderline. She was diagnosed with syncope and orthostatic intolerance. She was prescribed fludrocortisone that she tried for two weeks and then had the dose increased. The fludrocortisone was not working well. She was then prescribed pyridostigmine. Apparently odd side effect of blood in her mouth on this and thus it was discontinued. She was instructed to go to her family doctor by [facility]. Her mother states that in April 2019 that she appeared to develop seizures. Mild tremors/shaking and some jerking. Mother states it was seizure like. She was recommended to see a neurologist. EEG was wanted, but apparently had recurrent episodes of syncope and what appeared to be a seizure x7 per the mother. Events typically will occur after being upright most of the time. Worsened after exertion of energy. Can occur sometimes when flat. She had a recent admission to [facility] with EEG monitoring done for 5 days that was normal. She was started on midodrine 7.5 mg TID for her recurrent low blood pressures. Blood pressures are still quite low even while on the midodrine. She has a syncopal episode 1 time per day typically. Top 3-5 symptoms daily: 1. Nausea 2. Weakness 3. Fatigue 4. Dizzy/lightheaded 5. Chest pain/tachycardia OARRS reviewed KP data reviewed if done COMPASS 31 reviewed as 31 point autonomic review of systems questions THIS NOTE IS FOR AT FIRST FOR MY DOCUMENTATION TO PROVIDE CARE, HELP INSURANCE COMPANY AND COLLEAGUES TO HAVE NEUROLOGICAL CONTEXT OF MY , AND FOR MY PERSONAL RECORDING TO FACILITATE FUTURE CARE BY HAVING A WRITTEN DOCUMENT MEMORY OF OUR CONSULT TOGETHER . THANK YOU FOR UNDERSTANDING THIS OFFICE NOTE IS A PHYSICIAN BASED DOCUMENT FOR COMMUNICATION AND CARE. She is brought in today by her mother and father. Medications Reviewed POTASSIUM ORAL Take by mouth. sodium chloride 1 g tab Take 1 g by mouth once daily. pyridostigmine bromide 30 mg tab Take 60 mg by mouth. midodrine (PROAMATINE) 2.5 mg tablet Take 7.5 mg by mouth three times daily. citalopram hydrobromide (CELEXA) 10 mg tablet Take 10 mg by mouth once daily. perflutren lipid microspheres (DEFINITY) 1.1 mg/mL injection (to be provided with echo procedure) Inject 1.3 mL intravenously as directed. Administration Instructions: If no IV access, insert saline lock prior to administering contrast. Discontinue saline lock post exam. If patient has central line or IVAD, may access for administration according to line specific nursing protocol. Once exam is complete, flush line and de-access per line specific nursing protocol. Diluted IV Bolus: Dilute 1.3 ml of Definity with 8.7 ml of preservative-free saline. Allergies Reviewed NKA PAST MEDICAL HISTORY: ACTIVE PROBLEM LIST Seizure-Like Activity (Hcc) Syncope Other Chest Pain Elevated Troponin History reviewed. No pertinent surgical history. Social History Tobacco Use - Smoking status: Never Smoker - Smokeless tobacco: Never Used Substance Use Topics - Alcohol use: Not Currently - Drug use: Not on file family history is not on file. Autonomic check list: YES (Y) or NO (N) Dry mouth Y Dry eyes N Change in sweat Y (increased) Constipation N Abdominal Bloating with shortly after eating Y Fluctuation of diarrhea and constipation N Urination N Change in taste Y Challenge swallowing foods N Skin changes of blue or redness to distal limbs N Fainting /near syncope/syncope Y Dizziness Y Light headiness Y Chest pain Y Challenge in breathing Y Tachycardia Y Temperature Regulation Y Bright lights GENERAL:No weight loss, malaise or fevers., SEE HPI HEENT:SEE HPI NECK:Negative for lumps, goiter, pain and significant neck swelling RESPIRATORY: See HPI CARDIOVASCULAR: See HPI GASTROINTESTINAL: Negative for abdominal discomfort, blood in stools or black stools or change in bowel habits GENITOURINARY: No history of dysuria, frequency or incontinence MUSKULOSKELETAL: Negative for joint pain or swelling, back pain or muscle pain. NEUROLOGIC:See HPI SKIN:Negative for lesions, rash, and itching. PSYCHIATRIC: Negative for sleep disturbance, mood disorder and recent psychosocial stressors. HEMATOLOGIC/LYMPHATIC /IMMUNOLOGIC:Negative for prolonged bleeding, bruising easily or swollen nodes. ENDOCRINE: Negative for cold or heat intolerance, polyuria, polydipsia and goiter. GLAUCOMA: No 06/04/19 1233 06/04/19 1329 06/04/19 1330 06/04/19 1331 BP: 102/58 109/62 114/69 115/68 BP Position: Supine Sitting Standing Pulse: 72 63 90 89 Resp: 18 Weight: 54.9 kg (121 lb) Height: 167.6 cm (5' 6 ) General Appearance Patient appears well at the time of this appointment. Cardiovascular Examination: No carotid bruit noted Heart has regular rate and rhythm Pulses equal bilaterally Neurological Examination: Cognition: The patient is alert and oriented times three Lucid and organized in conversation Able to tell detailed medical hx Speech is Normal in fluency volume and clarity Content and Syntax: Normal Comprehension: Normal, able to follow several step commands Cranial Nerves: Pupils are equal and reactive to light. Mydriatic pupils Extraocular movements are grossly intact Good saccades and pursuits No nystagmus Hearing intact Good upgaze Visual webb are full to confrontation. Facial, motor and sensory exam is symmetric Equal v1,V2, V3 Tongue is in midline. No tongue fasciculation. Palate is upgoing bilaterally SCM and trapezius are full. Shoulder shrug intact ? Motor Exam: ? Upper extremity motor exam is 5/5 in deltoid, 5/5 triceps 5/5biceps, 5/5 wrist extension, and 5/5 hand side panel padder. Finger extensor 5/5. Finger flexor 5/5. Pronation and Supination are full. Full interossei 5/5 ? Lower extremity is 5/5 in IP, 5/5 quadriceps, 5/5 hamstrings, 5/5 EHL, 5/5 TA and 5/5 gastrocnemius. Hip abductors and adductors are 5/5 Toe extensors and flexors are full bilaterally. Foot evertors and inversions are full bilaterally Tone and bulk is normal and preserved bilaterally of arms Tone and bulk is normal and preserved bilaterally of legs No pes cavus, hammer toes, champagne legs ? The patient is without significant pronator drift. ? Sensation: Decreased pinprick sensation of bilaterally of feet that improves with proximity to core. Normal toe position and vibratory sensation. Romberg's sign absent ? Reflexes: 2/4triceps, 2/4biceps, 2/4brachioradialis, 3/4knee jerk, 2/4ankle jerk and symmetric, toes are Down going (Negative Babinski). No clonus of ankles. ? Coordination: Finger-to- nose-finger and ficy-hv-hped intact bilaterally. No ataxia of arms. No limb dysmetria of arms and legs. or trunk. ALISIA of pronation and supination, finger and hand tapping intact. Toe tapping intact. There is no asterixis of the hands. No rigidity, cog wheeling, no bradykinesia. No tremors No extrapyramidal findings ? Gait: Normal station and stride. Able to tandem. Able to heel and toe walk. Good arm swing and body turn rises from chair well IMPRESSION/PLAN: Syncope and collapse Fadia is here today for issue of syncope. She notes that her symptoms all began after immunizations in November 2018. She notes that post-immunizations, she developed an odd rash that was under her arms and also in the groin region. She was found to have a staph infection and was treated with Keflex. After this infection, she notes issue of syncope and seizure like activity that has been ongoing over the last 5 months. She has had thorough workup and evaluation that includes EEG, ECG, Echo, MRI Brain that were essentially normal per review. She had tilt table testing done at [facility] that I do not have record of, but per the patient and mother were borderline for postural orthostatic tachycardia syndrome. She has been tried for her episodes of syncope and low blood pressure on midodrine, florinef, and pyridostigmine, but episodes persist. Her orthostatic vital signs are stable today. Her neurological exam shows decreased pinprick sensation of her feet bilaterally, but otherwise normal. Due to her ongoing issues of syncope, will order the followin. ECG 2. Hemodynamic echocardiogram 3. Tilt table evaluation 4. Skin biopsy for neuropathy 5. Labs for sensory loss 6. Consult to epilepsy center---my concern is for convulsive syncope vs. SOFIA given normal EEG testing inpatient and outpatient. During our face to face clinical encounter we discussed my concerns neurologically in terms of diagnosis, impact on health and activities of living, and addressed questions. I tried to reassure the patient and also address questions. I explained to the patient to call if any questions, to review results, and I want to see them return for neurological follow up as mychart as next steps of communication is agreed upon Patient verbalizes understanding and I have addressed concerns and questions at this visit Patient has my contacts, educational material provided, and my chart sign up. After visit summary discussed. I spent 60 minutes in the visit, with more than 50% of the total [id number] time of the visit in counseling / coordination of care. ACTIVE PROBLEM LIST Seizure-Like Activity (Hcc) Syncope Other Chest Pain Elevated Troponin Office Visit on 06/04/19 - NEURO CARDIO AUTONOMIC REFLEX W/WO TILT - SKIN BIOPSY FOR NEUROPATHY/CNL - HEMODYNAMIC TILT W/IV START - VITAMIN B12 BLOOD - VITAMIN B1 (THIAMINE), WHOLE BLOOD - VITAMIN B6/PYRIDOXIN - METHYLMALONIC ACID - COPPER BLOOD - IMMUNOFIXATION SCREEN, SERUM - CONSULT TO NEUROLOGY - ECG COMPLETE - HEMODYNAMIC ECHOCARDIOGRAM - TILT TABLE EVALUATION Flavio Tran MSN, BICYCLE SERVICE TECHNICIAN, INNOVATION ANALYST-C 1. This office note has been dictated and may contain minor typographic errors that escaped review 2. The nursing staff and medical assistants are a major part of YOUR TREATMENT TEAM and will be handling your phone calls and inquiries, if any. Unless explicitly told otherwise at the time of your office visit, your study results and ensuing treatment plans will be discussed during your follow-up appointment. If you do not have a follow-up appointment and wish to discuss any issues directly with me, please feel free to obtain one. 3. It is my practice to not fill disability or any other insurance-related forms/documention. All of the office notes, study results, and other pertinent documentation generated as part of your evaluation will be available to you and to your Primary Care Physician (PCP). Use of this material to complete such forms will be at the discretion of your PCP/referring physician Normal [facility] Vitamin B1, Whole Blon 06-04 Vitamin B1 (TDP), WB 189.4 nmol/L Normal 84.0-213.0 [facility] Comment on above: Result Comment: This assay measures the concentration of thiamine diphosphate (TDP), the primary active form of vitamin B1. Approximately 90 percent of vitamin B1 present in whole blood is TDP. Thiamine and thiamine monophosphate, which comprise the remaining 10 percent, are not measured. This test was developed and its performance characteristics determined by [facility] [place] ([facility] It has not been cleared or approved by the FDA. [facility] is regulated under CLIA as qualified to perform high complexity testing. This test is used for clinical purposes. It should not be regarded as investigational or for research. Performed By: #### C BC, CMP, MG1, PHOS #### [facility] [address] [place], [place] [address] Vitamin B12on 06-04-2019 Cobalamin (Vitamin B12) [Mass/Vol] 989 pg/mL Normal 232-1245 [facility] Comment on above: Performed By: #### C BC, CMP, MG1, PHOS #### [facility] [address] [place], [place] [address] Vitamin B6 Plasmaon 06-04-20 19 Vitamin B6 Plasma 29.7 nmol/L Normal 20.0-125.0 [facility] Comment on above: Result Comment: (NOT E) INTERPRETIVE INFORMATION: Vitamin B6 (Pyridoxal 5-Phosphate) Pyridoxal 5'-phosphate measured in a specimen collected following an 8-hour or overnight fast accurately indicates vitamin B6 nutritional status. Non-fasting specimen concentration reflects recent vitamin intake. Test developed and characteristics determined by [facility]. See Compliance Statement B: [employer] Performed by [facility], [address] [place] [id number] [email or web address], Chris Domingo MD, Lab. Director Performed By: #### C BC, CMP, MG1, PHOS #### [facility] [address] [place], [place] [address] PLAN OF CAREon 05-16-2019 PLAN OF CARE HNO ID: [id number] Author: Drew Walton Service: Cardiovascular Medicine Author Type: Resident Type: Plan of Care Filed: 05/16/2019 7:39 AM Note Text: Attestation signed by John Valdivia at 05/16/2019 9:00 AM [facility] STAFF PHYSICIAN NOTE OF PERSONAL INVOLVEMENT IN CARE I have reviewed the consult note obtained and documented by the resident and I personally participated in the rosado components. I have discussed the case and management of the patient's care. John Valdivia MD Cardiology team initially consulted for elevated troponin at outside hospital and echocardiogram read of mobile lesion on the ventricular side of the TV which may represent thicken chordal structure . Cardiac enzymes negative at [facility]. TTE done yesterday with normal systolic function, no wall motion abnormalities, and no thickening or mobile lesion. Cardiology will sign off at this time. Please do not hesitate to re consult with any concerns. Drew Walton MD [phone] Normal [facility] PROGRESSon 05-15-2019 PROGRESS HNO ID: [id number] Author: Shanae Morales Service: General Internal Medicine Author Type: Physician Type: Progress Notes Filed: 05/15/2019 5:43 PM Note Text: SERVICE DATE: 05/15/2019 SERVICE TIME: 5:31 PM HOSPITAL MEDICINE PROGRESS NOTE NIGHT AND WEEKEND COVERAGE: Days: [id number] [place] [phone] for patient issues. Nights: 4512-6916 For patients on H80/81, G80/81, please page GIM team pager [phone] For patients on any other floor, please page GIM team pager [phone] Hospital Medicine/Primary Attending: Shanae Morales MD Subjective Interval Events: No acute interval events. Telemetry monitoring shows intermittent tachycardia but is otherwise unremarkable. No more spells per RN. ESR, CRP, cortisol and TSH are normal. Awaiting echocardiogram results. Objective BP 97/53 Pulse 63 Temp (Src) 98.4 (Oral) Resp 18 Ht 5' 6 (1.68m) Wt 122 lb 6.4 oz (55.5kg) SpO2 96% BMI 19.77 kg/(m2). O2 Therapy: Room Air GENERAL: Alert, no distress, cooperative HEENT: MMM, head atraumatic. LUNGS: Lungs clear to auscultation, Good diaphragmatic excursion CARDIAC: Normal S1 and S2; no rubs, murmurs, or gallops ABDOMEN: Abdomen soft, non-tender, BS normal, No masses. EXTREMITIES: Extremities normal, no deformities or edema. No ulcers NEURO: AANDO x3. CN grossly intact, moves extremities equally with no gross functional deficits noted. Lines, Drains, and Airways Line Peripheral Admission to Hospital Short Right Antecubital 20 Gauge -- days Peripheral 05/12/19 1150 Short Right Forearm 20 Gauge 3 days Medications: Reviewed Diagnostic tests reviewed: Most recent imaging Most recent labs Assessment AND Plan Active Hospital Problems as of 05/15/2019 Noted - Resolved Unprioritized Syncope 05/13/2019 - Present Current Assessment AND Plan Assessment: Diagnosed with possible POTS recently and has been having episodes of nausea, lightheadedness, followed by loss of consciousness and shaking movements, which can range from small tremors to more intense movements with clenched fits and curled toes. since February. Work-up at OSH demonstrated negative EEG and MRI brain. Tilt table did not meet full criteria for POTS. Her neurological exam is nonfocal and patient is hemodynamically stable. EEG here is normal. ESR, CRP, TSH, and cortisol are normal. Overall, her presentation is concerning for convulsive syncope or seizure vs. psychogenic non-epileptic seizures. PLAN: Obtain echocardiogram Appreciate Neurology recs: maintain EEG until discharge F/u with Autonomic disorder clinic Telemetry monitoring F/u with Syncope clinic and Dysautonomia clinic Other chest pain 05/13/2019 - Present Current Assessment AND Plan Assessment: Patient has had intermittent atypical chest pain, elevated troponin, and mobile lesion on the ventricular side of the TV. EKG sinus rhythm demonstrates sinus arrhythmia. Telemetry has episodes of sinus tachycardia but is otherwise unremarkable. ESR and CRP normal, myocarditis unlikely. TSH normal. Troponin normal here. PLAN: Obtain echocardiogram Hold on further testing such as cardiac MRI per Cardiology Elevated troponin 05/13/2019 - Present Current Assessment AND Plan Assessment: History of mild troponin elevation during past hospitalizations. Her troponin is normal now. EKG shows sinus arrhythmia. PLAN: Awaiting echocardiogram: history of ?prominent chordal structure near the TV. F/u Cardiology recs Medication and Non-Pharmacologic VTE Prophylaxis/Anticoagu lants Anticoagulant AND Antiplatelet Medications (From admission, onward) Start Dose Route Frequency Ordered Stop 05/12/19 0900 heparin 5,000 Units injection (Medical Risk Categories) 5,000 Units SUBCUTANEOUS EVERY 12 HOURS 05/12/19 0832 -- 05/12/19 0830 vte non-pharmacologic prophylaxis - none indicated (wi,oh) VTE Prophylaxis: VTE prophylaxis appropriate Plan of care discussed with: Provider, Family/Significant Other: mother, Care Management and RN SIGNATURE: Shanae Morales MD PATIENT NAME: Fadia Lan DATE: May 15, 2019 TIME: 5:31 PM PAGER/CONTACT #: [phone] Normal [facility] C-Reactive Proteinon 019 CRP [Mass/Vol] mg/L Normal <0.9 [facility] Comment on above: Performed By: #### V ALLBG #### [facility] [address] [id number] CASE MANAGEMon 05-14-2019 CASE MANAGEM HNO ID: [id number] Author: Sendy Olson RN Service: Care Management Author Type: Registered Nurse Type: Care Mgt Progress Note Filed: 05/14/2019 5:44 PM Note Text: CARE MANAGEMENT PROGRESS NOTE SERVICE DATE: 05/14/2019 SERVICE TIME: 5:43 PM LOS: 2 days 05:40 pm Attempted bedside visit I.A. Pt observed sleeping. CM will return the visit. SIGNATURE: Sendy Olson RN PATIENT NAME: Fadia Lan DATE: May 14, 2019 TIME: 5:43 PM PAGER/CONTACT #: [phone] Normal [facility] CASE MANAGEM HNO ID: [id number] Author: Ruby Haile RN Service: Case Management Author Type: Registered Nurse Type: Care Mgt Progress Note Filed: 05/14/2019 2:44 PM Note Text: CARE MANAGEMENT PROGRESS NOTE SERVICE DATE: 05/14/2019 SERVICE TIME: 2:43 PM LOS: 2 days Progress Note Attempted to see the patient however she was sound asleep. Care Management will follow for Post Hospital Transition Needs. SIGNATURE: Ruby HaileRN,BSN,ACM-RN PATIENT NAME: Fadia Lan DATE: May 14, 2019 TIME: 2:43 PM PAGER/CONTACT #: .[phone] Normal [facility] Cortisolon 05-14-2019 Cortisol 20.4 ug/dL Normal [facility] Comment on above: Result Comment: Juan isol Reference Range: AM = 5.3-22.5, PM = 3.4-16.8 Performed By: #### C BC, CMP, MG1, PHOS #### [facility] [address] [address] PLAN OF CAREon 05-14-2019 PLAN OF CARE HNO ID: [id number] Author: Dante Smith MD Service: Neurology General Author Type: Resident Type: Plan of Care Filed: 05/14/2019 1:40 PM Note Text: 05/14/19 1:32 PM EEG results reviewed and thus far appear normal. That there are no sharp waves, asymmetry, or other signs of epileptogenicity is reassuring that underlying seizure focus is less likely, though does not entirely preclude an underlying seizure disorder as an episode was not caught on monitoring. Given negative findings to date, would not recommend keeping patient admitted specifically for EEG monitoring, though would continue monitoring for as long as she is admitted. Overall, pt may require a dedicated EMU stay for characterization and diagnosis of her events. -From a neurology standpoint, no need for further workup during this admission -Would continue EEG until discharge -If an event occurs or if new findings on EEG, please page [phone] -Pt should follow up with epilepsy - will place follow up order -For further POTS management, pt may follow up in autonomic clinic if she chooses -Please page with further questions Dante Smith MD PGY-2 Neurology Pager [phone] Normal [facility] PROGRESSon 05-14-2019 PROGRESS HNO ID: [id number] Author: Shanae Morales Service: General Internal Medicine Author Type: Physician Type: Progress Notes Filed: 05/14/2019 6:19 PM Note Text: SERVICE DATE: 05/14/2019 SERVICE TIME: 6:17 PM HOSPITAL MEDICINE PROGRESS NOTE NIGHT AND WEEKEND COVERAGE: Days: [phone] [place] [phone] for patient issues. Nights: [phone] For patients on H80/81, G80/81, please page GIM team pager [phone] For patients on any other floor, please page GIM team pager [phone] Hospital Medicine/Primary Attending: Shanae Morales MD Subjective Interval Events: Patient has not had any episodes thus far. EEG monitoring is normal. She has no complaints. She is awaiting echocardiogram. Troponin x2 and CRP normal; cortisol blood is pending. Objective BP 90/51 Pulse 61 Temp (Src) 99 (Oral) Resp 18 Ht 5' 6 (1.68m) Wt 121 lb 1.6 oz (54.9kg) SpO2 96% BMI 19.56 kg/(m2). GENERAL: Alert, no distress, cooperative HEENT: MMM, head atraumatic. LUNGS: Lungs clear to auscultation, Good diaphragmatic excursion CARDIAC: Normal S1 and S2; no rubs, murmurs, or gallops ABDOMEN: Abdomen soft, non-tender, BS normal, No masses. EXTREMITIES: Extremities normal, no deformities or edema. No ulcers NEURO: AANDO x3. CN grossly intact, moves extremities equally with no gross functional deficits noted. Lines, Drains, and Airways Line Peripheral Admission to Hospital Short Right Antecubital 20 Gauge -- days Peripheral 05/12/19 1150 Short Right Forearm 20 Gauge 2 days Medications: Reviewed Diagnostic tests reviewed: Most recent imaging Most recent labs Assessment AND Plan Active Hospital Problems as of 05/14/2019 Noted - Resolved Unprioritized Syncope 05/13/2019 - Present Current Assessment AND Plan Assessment: Diagnosed with possible POTS recently and has been having episodes of nausea, lightheadedness, followed by loss of consciousness and shaking movements, which can range from small tremors to more intense movements with clenched fits and curled toes. since February. Work-up at OSH demonstrated negative EEG and MRI brain. Tilt table did not meet full criteria for POTS. Her neurological exam is nonfocal and patient is hemodynamically stable. EEG here is normal. Overall, her presentation is concerning for convulsive syncope or seizure vs. psychogenic non-epileptic seizures. PLAN: Appreciate Neurology recs: maintain EEG F/u with Autonomic disorder clinic Telemetry monitoring F/u echocardiogram F/u with Epilepsy Other chest pain 05/13/2019 - Present Current Assessment AND Plan Assessment: Patient has had intermittent atypical chest pain, elevated troponin, and mobile lesion on the ventricular side of the TV. EKG sinus rhythm demonstrates sinus arrhythmia. PLAN: Obtain echocardiogram Hold on further testing such as cardiac MRI per Cardiology Elevated troponin 05/13/2019 - Present Current Assessment AND Plan Assessment: History of mild troponin elevation during past hospitalizations. Her troponin is normal now. EKG shows sinus arrhythmia. PLAN: Awaiting echocardiogram: history of ?prominent chordal structure near the TV. F/u Cardiology recs Medication and Non-Pharmacologic VTE Prophylaxis/Anticoagu lants Anticoagulant AND Antiplatelet Medications (From admission, onward) Start Dose Route Frequency Ordered Stop 05/12/19 0900 heparin 5,000 Units injection (Medical Risk Categories) 5,000 Units SUBCUTANEOUS EVERY 12 HOURS 05/12/19 0832 -- 05/12/19 0830 vte non-pharmacologic prophylaxis - none indicated (wi,il) VTE Prophylaxis: VTE prophylaxis appropriate Plan of care discussed with: Patient, Family/Significant Other: mother, Care Management and RN via telephone SIGNATURE: Shanae Morales MD PATIENT NAME: Fadia Lan DATE: May 14, 2019 TIME: 6:17 PM PAGER/CONTACT #: [phone] Normal [facility] Troponin Ton 05-14-2019 Troponin T.cardiac [Mass/Vol] ug/L Normal 0.000-0.029 [facility] Comment on above: Performed By: #### V ALLBG #### [facility] [address], [place] [address] NURSING PROGon 05-13-2019 NURSING PROG HNO ID: [id number] Author: Colleen (Rn) MICHAEL Devine Service: ? Author Type: Registered Nurse Type: Nursing Progress Note Filed: 05/13/2019 5:05 AM Note Text: Nursing Progress Note Patient Name: Fadia Lan Patient Location: [place] [id number] Daily Note: Pt arrived to unit in stable condition. Pt was fully assessed including skin check with 2nd RN. Pt was oriented to room, instructed on how to use the call button, explained why she is currently a falls risk, and taught her how to use the call light for help. Pt stated that her belongings include her cell lurdes, discharge planner, health history documents, and home medications. I instructed patient that doctors will need to see medication to reconcile med orders but that we will be providing all medication while she is in the hospital. Pt showed no signs and had no c/o pain, dizziness, chest pains or seizure activity at this time. This note was completed by: Colleen Devine RN Normal [facility] PROGRESSon 05-13-2019 PROGRESS HNO ID: [id number] Author: Gerald Borrego) Mario Alberto Service: Hospital Medicine Author Type: Physician Type: Progress Notes Filed: 05/13/2019 1:54 PM Note Text: Plan of care note Spoke to pt and family at bedside Went over previous work up with them They have paper records from [facility] - ECHO - 3 echos done so far 1st one had shown echodensity at tricuspid valve Repeat ECHO reported it as thickened chordae Also mention of MVP 14 day Holter - No arrhythmia Troponin elevation at OSH Cortisol was normal BMP and CBC unremarkable Thyroid function test was also normal - Pt is on continuous EEG to r/o Seizure -Neuro and Cardio on case - Pt does have low BP - which as per family is new On midodrine for hypotension Pt's symptoms of LOC, Chest pain, sometimes los of vision ( as per mom) etc do not fit any single diagnosis - Will D/W neuro and Cardio - continue EEG and tele Troponin here was neg - will get AM cortisol tomorrow Rest POC as per Dr. Rodriguez's note from today Gerald Llanes MD, FACP Associate Staff, Dept. Of Hospital Medicine PAGER - [phone] Normal [facility] PROGRESS HNO ID: [id number] Author: Scott Mosesaracelikecia Service: Hospital Medicine Author Type: Physician Type: Progress Notes Filed: 05/13/2019 2:50 AM Note Text: DEPARTMENT OF HOSPITAL MEDICINE PROGRESS NOTE SERVICE DATE: 05/13/2019 SERVICE TIME: 2:42 AM Primary Care Physician: Danilo Dinero MD NIGHT AND WEEKEND COVERAGE: Please page me at [phone] with any question between 5 pm-8 am. Afterwards, page the assigned team. Subjective CHIEF COMPLAINT: Siezure HPI: This is a 18 year old female with Hx of bullous impetigo who presents with recurrent syncope and seizure like episode. Developed a rash over the summer. Thought to be impetigo (S aureus). A few months later started developing recurrent syncope and chest pain. She was admitted to OSH on 02/2019and underwent extensive cardiac and neuro w/u including Holter monitor, tilt table testing, echo, MRI, brain, EEG. All was normal except the echo which showed a mobile lesion on the ventricular side of the TV. Was diagnosed with POTS and treated with pyridostigmine, fludro, midodrine, and salt tabs but had recurrence of syncope. Admitted again early April, w/u negative again but notably troponin still elevated. Had multiple episodes of syncope 05/11 so presented to OSH and transferred her for . No past medical history on file. No past surgical history on file. No family history on file. Social History Tobacco Use - Smoking status: Not on file Substance Use Topics - Alcohol use: Not on file - Drug use: Not on file MEDICATIONS: fludrocortisone acetate (FLUDROCORTISONE ORAL), Take 0.1 mg by mouth., Disp: , Rfl: , Unknown at Unknown time pyridostigmine bromide 30 mg tab, Take 60 mg by mouth., Disp: , Rfl: , Unknown at Unknown time midodrine (PROAMATINE) 2.5 mg tablet, Take 7.5 mg by mouth three times daily. , Disp: , Rfl: , Unknown at Unknown time citalopram hydrobromide (CELEXA) 10 mg tablet, Take 10 mg by mouth once daily., Disp: , Rfl: , Unknown at Unknown time ALLERGIES No Known Allergies REVIEW OF SYSTEM: Review of Systems Constitutional: Negative for chills, diaphoresis and fever. HENT: Negative for congestion and sore throat. Eyes: Negative for photophobia and redness. Respiratory: Negative for cough, sputum production and shortness of breath. Cardiovascular: Negative for chest pain, palpitations, orthopnea and PND. Gastrointestinal: Negative for abdominal pain, nausea and vomiting. Genitourinary: Negative for dysuria and urgency. Musculoskeletal: Negative for falls and myalgias. Neurological: Negative for dizziness, loss of consciousness and headaches. Psychiatric/Behaviora l: Negative for depression and hallucinations. Objective PHYSICAL EXAM: BP 99/66 Pulse 80 Temp (Src) 98.8 (Oral) Resp 18 Ht 5' 6 (1.68m) Wt 122 lb 6.4 oz (55.5kg) SpO2 97% BMI 19.77 kg/(m2). O2 Therapy: Room Air Physical Exam Performed: Physical Exam Constitutional: She is oriented to person, place, and time and well-developed, well-nourished, and in no distress. No distress. HENT: Head: Normocephalic and atraumatic. Mouth/Throat: Oropharynx is clear and moist. Eyes: Pupils are equal, round, and reactive to light. EOM are normal. No scleral icterus. Neck: Normal range of motion. Neck supple. No JVD present. Cardiovascular: Normal rate and regular rhythm. No murmur heard. Pulmonary/Chest: Effort normal and breath sounds normal. No respiratory distress. She has no wheezes. She has no rales. Abdominal: Soft. Bowel sounds are normal. She exhibits no distension. There is no tenderness. There is no rebound. Musculoskeletal: Normal range of motion. General: No edema. Lymphadenopathy: She has no cervical adenopathy. Neurological: She is alert and oriented to person, place, and time. Skin: Skin is warm and dry. She is not diaphoretic. Lines, Drains, and Airways Line Peripheral Admission to Hospital Short Right Antecubital 20 Gauge -- days Peripheral 05/12/19 1150 Short Right Forearm 20 Gauge less than 1 day DATA: Diagnostic tests reviewed for today's visit: Most recent labs and imaging results. Assessment/Plan Seizure Presyncope Possible POTS vs seizure Neurology on board Cont EEG Seizure precautions TV mobile density In the setting of recurrent chest pain Cardiology on board Repeat TTE? High troponin Unclear etiology Trended down Concern for infiltrative disease MRI? As per cardiology Medication and Non-Pharmacologic VTE Prophylaxis/Anticoagu lants Anticoagulant AND Antiplatelet Medications (From admission, onward) Start Dose Route Frequency Ordered Stop 05/12/19 0900 heparin 5,000 Units injection (Medical Risk Categories) 5,000 Units SUBCUTANEOUS EVERY 12 HOURS 05/12/19 0832 -- 05/12/19 0830 vte non-pharmacologic prophylaxis - none indicated (wi,oh) VTE Prophylaxis: low risk Disposition: Home Plan of care discussed with: Patient and RN SIGNATURE: Scott Rodriguez MD PATIENT NAME: Fadia Lan DATE: May 13, 2019 TIME: 2:11 AM PAGER/CONTACT #: [phone] etx [phone] Normal [facility] CBCon 05-12-2019 Absolute nRBC <0.01 Normal <0.01 [facility] Comment on above: Performed By: #### C BC, CMP, MG1, PHOS #### [facility] [address] [place] [address] Erythrocyte distribution width (RBC) [Ratio] 11.3 % Low 11.5-15.0 [facility] Comment on above: Performed By: #### C BC, CMP, MG1, PHOS #### [facility] [address] [place], [place] [address] Hematocrit (Bld) [Volume fraction] 36.1 % Normal 36.0-46.0 [facility] Comment on above: Performed By: #### C BC, CMP, MG1, PHOS #### [facility] [address] [place], [place] [address] Hemoglobin (Bld) [Mass/Vol] 12.6 g/dL Normal 11.5-15.5 [facility] Comment on above: Performed By: #### C BC, CMP, MG1, PHOS #### [facility] [address] [place], [place] [address] MCH (RBC) [Entitic mass] 31.0 pG Normal 26.0-34.0 [facility] Comment on above: Performed By: #### C BC, CMP, MG1, PHOS #### [facility] [address] [place], [place] [address] MCHC (RBC) [Mass/Vol] 34.9 g/dL Normal 30.5-36.0 [facility] Comment on above: Performed By: #### C BC, CMP, MG1, PHOS #### [facility] [address] [place], [place] [address] MCV (RBC) [Entitic vol] 88.7 fL Normal 80.0-100.0 [facility] Comment on above: Performed By: #### C BC, CMP, MG1, PHOS #### [place] [address] [place] [address] Platelet mean volume (Bld) [Entitic vol] 8.6 fL Low 9.0-12.7 [facility] Comment on above: Performed By: #### C BC, CMP, MG1, PHOS #### [place] [address] [place], [place] [address] Platelets (Bld) [#/Vol] 328 10*3/uL Normal 150-400 [facility] Comment on above: Performed By: #### C BC, CMP, MG1, PHOS #### [place] [address] [place], [place] [address] RBC (Bld) [#/Vol] 4.07 10*6/uL Normal 3.90-5.20 [facility] Comment on above: Performed By: #### C BC, CMP, MG1, PHOS #### [place] [address] [place], [place] [address] WBC (Bld) [#/Vol] 5.72 10*3/uL Normal 3.70-11.00 [facility] Comment on above: Performed By: #### C BC, CMP, MG1, PHOS #### [place] [address] [place], [place] [address] CONSULTon 05-12-2019 CONSULT HNO ID: [id number] Author: Ramesh Scales Service: Neurology General Author Type: Physician Type: Consults Filed: 05/13/2019 9:22 AM Note Text: INITIAL CONSULT - GENERAL NEUROLOGY SERVICE DATE: 05/12/2019 SERVICE TIME: 12:49 PM Current Attending Provider: Skip Zee Neurology was asked by the MICU team to evaluate Fadia Lan, a 18 year old female for a chief complaint of Seizures. Our recommendations of care will be communicated by shared medical record. Reason for Evaluation: Concern for Seizures Subjective HPI: This is Ms. Fadia Lan a 18 year old female with recent diagnosis of POTS who was transferred from an OSH after having episodes concerning for seizures. History was provided by patient and her mother. In November 2018 she had vaccinations including HPV, Hep, and meningococcal. 2-3 weeks afterwards, she developed a skin rash on right foot and groin region. She was told it was staph, given antibiotics then steroids. The rash spread into blistering regions, so she was seen by Dermatology who treated further for Staph infection, which was healed by mid-January. March 01 she came home from high school after having passed out. When parents arrived she had slurred speech, was drowsy, dry heaving. She was taken to ED where Troponin level was elevated, she was admitted where ECHO showed possible density on Tricuspid valve, which was later thought to be tissue. After coming home, she left school again due to dizziness, shortness of breath, tremors, was re-evaluated in ED. This time had 30 minute EEG which per parents was normal. Since then, she has had progressive symptoms. Episodes of losing consciousness occurred 1-2 times per week, increasing to one every other day for the past week, and seven episodes yesterday. Per mother episodes include: feeling of nausea, sometimes chest pain, lightheadedness, then she loses consciousness from a couple minutes up to 15 minutes. Shaking movements vary in intensity from small tremors to clenching fists, flexing at elbows and curling toes. The episodes yesterday worsened in intensity to the point of foaming at mouth, head shaking no , eyes closed. Per her mother sometimes she cries and holds her chest. No incontinence but bit her tongue once 4 days ago. Episodes tend to occur in the evenings or early breastfeeding care specialist (3AM-5AM- per mother she is awake prior to episodes). Can be sitting or standing. Only one seemed to be out of sleep (her sister found her shaking in bed in the morning). In between episodes she has nausea, intermittent chest pain and shortness of breath, dry heaves, occasional vomiting, intermittent blurry vision, headaches. Since she had 7 episodes yesterday, family took her to local ED, then transferred to [facility] MICU for further management. Prior work-up includes EEG, MRI Brain w/wo contrast on 03/15 which was normal, and Tilt table testing per mother she did not meet full criteria of POTS, but she was started on medication to treat for possible POTS, which has not helped. She denied history of seizures, meningitis, no FH of seizures. She had one concussion 4 years ago after head injury while playing [employer] ball. She denied smoking, drinking alcohol, and drug use. She is currently having problems with insomnia. She denied significant stress. She has had to stay home from high school and quit her job at [employer] due to episodes. Current Facility-Administered Medications Medication Dose Route Frequency - magnesium sulfate in water 4-6 g in sterile water 50 ml 4-6 g INTRAVENOUS PRN - sodium phosphate 45 mmol in NaCl 0.9% 250 mL 45 mmol INTRAVENOUS PRN - heparin 5,000 Units injection 5,000 Units SUBCUTANEOUS q 12 H - NaCl 0.9% 3-5 mL 3-5 mL INTRAVENOUS q 12 H - acetaminophen 1,000 mg tab(s) (TYLENOL) 1,000 mg ORAL/FEEDING TUBE q 6 H PRN - insulin regular human injection (short acting) (NovoLIN R,HumuLIN R) SUBCUTANEOUS q 6 H - insulin regular 100 units in NaCl 0.9% 100 mL iv infusion - ICU NOMOGRAM 0.5-30 Units/hr INTRAVENOUS CONTINUOUS - insulin regular human iv bolus 2-10 Units 2-10 Units INTRAVENOUS PRN - dextrose 50 % 12.5-25 g injection 12.5-25 g INTRAVENOUS PRN - dextrose 40 % 15 g 15 g ORAL PRN - glucagon 1 mg injection (GLUCAGEN) 1 mg SUBCUTANEOUS PRN - potassium chloride ER 40 mEq tab(s) (K-DUR, KLOR-CON) 40 mEq ORAL ONCE No past medical history on file. No past surgical history on file. Social History Tobacco Use - Smoking status: Not on file Substance Use Topics - Alcohol use: Not on file - Drug use: Not on file No family history on file. ALLERGIES No Known Allergies REVIEW OF SYSTEMS: GENERAL: Normal sleep, appetite and activity. No fevers or irritability. HEENT: Negative for headaches, No problems with hearing or vision, no nose bleeds or other nasal problems NECK: Negative for stiffness, lumps or significant neck swelling RESPIRATORY: Negative for cough, wheezing or respiratory distress CARDIOVASCULAR: Negative for chest pain, syncope, lightheadness or heart racing GI: No nausea, vomiting, or diarrhea : No history of dysuria, frequency or incontinence MUSCULOSKELETAL: Negative for joint pain or swelling, back pain or muscle pain SKIN: Negative for lesions, rash, and itching NEURO: See HPI Objective PHYSICAL EXAM: General Appearance: Well appearing, alert, in no acute distress, well-hydrated, well nourished. Skin: Skin color, texture, turgor normal, no suspicious rashes or lesions Head: Normocephalic Oropharynx: Lips, mucosa, and tongue normal, teeth and gums normal, oropharynx normal Neck: Supple Lungs: Normal respiratory effort Heart: RRR Extremities: No deformities, edema, skin discoloration, clubbing or cyanosis. Musculoskeletal: No joint swelling, deformity, or tenderness Neurological: ? Mental Status: Alert, oriented to person, place and time and Follows commands. Cranial Nerves: CNII: Visual webb full to confrontation, No APD noted on exam CNIII, IV, : Pupils equal, round and reactive to light, full extraoccular movements, without nystagmus CN V: Facial sensation intact bilaterally to fine touch CN VII: Facial muscles symmetric and strong, No noted facial droop CN VIII: Hears finger rub well bilaterally CN IX: Gag Reflex Not examined CN X: Palate elevates symmetrically CN XI: Full strength shoulder shrug bilaterally CN XII: Tongue protrusion full and midline ? Non-Dilated Fundiscopic Examination: Deferred Examination ? Motor Exam: Tone - Normal Bulk - no muscle atrophy Delt Biceps Triceps Wrist Ext Wrist Flex Finger Flex Finger Ext Finger Abd Right 5/5 5/5 5/5 5/5 5/5 5/5 5/5 5/5 Left 5/5 5/5 5/5 5/5 5/5 5/5 5/5 5/5 Hip Flex BiFem (knee flex) Quads (knee ext) Gastroc (plantflx) TibAnt (Dorsiflx) FlxHLong (ToeFlex) ExtHLong (ToeExt) Right 5/5 5/5 5/5 5/5 5/5 5/5 5/5 Left 5/5 5/5 5/5 5/5 5/5 5/5 5/5 REFLEXES Right Left Bicep 2/4 2/4 BrRad 2/4 2/4 Knee 2/4 2/4 Ankle 2/4 2/4 Pathological Reflexes: Babinski: bilaterally Downward response ? Sensation: Intact to light touch and vibratory sense in all four extremities. ? Coordination: Finger-to- nose-finger intact bilaterally and [id number] intact bilaterally. ? Gait: Not examined. LABS/DATA: WBC (k/uL) Date Value 05/12/2019 5.72 RBC (m/uL) Date Value 05/12/2019 4.07 Platelet Count (k/uL) Date Value 05/12/2019 328 BUN (mg/dL) Date Value 05/12/2019 5 Creatinine (mg/dL) Date Value 05/12/2019 0.58 No results found for: NEUTP, ABSNEUT, LYMPHP, ABSLYMPH, ABSMONO, EODINP, ABSEOSIN, BASOP, ABSBASO Lab Results Component Value Date PLT 328 05/12/2019 HB 12.6 05/12/2019 HCT 36.1 05/12/2019 ALB 4.1 05/12/2019 CA 8.7 05/12/2019 TBILI 0.5 05/12/2019 ALKPHOS 54 05/12/2019 AST 14 05/12/2019 GLUC 81 05/12/2019 BUN 5 05/12/2019 NA 142 05/12/2019 K 3.3 05/12/2019 CHLOR 105 05/12/2019 CO2 28 05/12/2019 CO2 26 05/12/2019 ANION 11 05/12/2019 ALT 10 05/12/2019 WSR (mm/hr) Date Value 05/12/2019 2 No results found for: USCRP No results found for: CHOL No results found for: LDL No results found for: HDL No results found for: TG No results found for: HBA1C DATA: Diagnostic tests reviewed for today's visit: Most recent labs and imaging results. MRI Brain w/wo contrast 03/15/19 reviewed: no abnormalities appreciated. (Disc could not upload- disc left in patient's chart). Impression/Recommenda tions This is MsGrayson Lan a 18 year old female with recent diagnosis of POTS who was transferred from an OSH after having episodes concerning for seizures. Episodes started in 02/2019 which occurred a couple weeks after vaccinations and after having a Staph skin infection. Since then, episodes have increased in frequency and intensity, described as: starting with nausea, lightheadedness, followed by loss of consciousness and shaking movements, which can range from small tremors to more intense movements with clenched fits and curled toes. She occasionally cries and grabs for chest, no incontinence but bit tongue once. Only seizure risk factor includes one concussion four year ago. Prior work-up includes EEG, MRI Brain w/wo contrast on 03/15 which was normal, and Tilt table testing per mother she did not meet full criteria of POTS, but she was started on medication to treat for possible POTS, which has not helped. Neurological examination is non-focal. Specifically strength is intact, reflexes intact and equal, no sensory or coordination deficits. Differential includes convulsive syncope (possible POTS) versus seizure. Certain components of the events are unusual for seizure (varying in intensity, duration up to 15 minutes, crying and grabbing at chest). She also has prodrome of nausea and lightheadedness which are more likely syncopal. However she may have had one episode out of sleep (?) which would be unusual for syncope. Cardiology has been consulted to further evaluate possible tricuspid valve abnormality. Recommend further evaluation with prolonged EEG monitoring. Recommendations: - Continuous EEG monitoring. - If there is concern for seizure, [place] [phone]. - [place] [phone] with questions. [facility] and will be formally seen by staff in the AM. SIGNATURE: Maria De Jesus Gunderson MD PGY4 Neurology Resident PATIENT NAME: Fadia Lan DATE: May 12, 2019 TIME: 12:49 PM PAGER/CONTACT #: [phone] Staff Note: I reviewed the history and physical obtained and documented by the resident and I personally participated in the rosado components. I agree with impression and plan. Ramesh Scales MD [facility] Metabolic Panelon 05-12 Albumin [Mass/Vol] 4.1 g/dL Normal 3.9-4.9 [facility] Comment on above: Performed By: #### C BC, CMP, MG1, PHOS #### [facility] [address] [place], [place] [address] ALP [Catalytic activity/Vol] 54 U/L Normal 45-87 [facility] Comment on above: Result Comment: Refe rence ranges were not locally established for this patient's age group. The normal values are based on the following source: Austen MP, Dari AH, et al. CLSI based transference of the Orate database of pediatric reference intervals from [employer] to [employer] Ortho, Nathalia, and Siemens Clinical Chemistry Assays: Direct validation using reference samples from the Orate cohort. Clin Biochem. Performed By: #### C BC, CMP, MG1, PHOS #### [facility] [address] [place] [address] ALT [Catalytic activity/Vol] 10 U/L Normal 7-38 [facility] Comment on above: Performed By: #### C BC, CMP, MG1, PHOS #### [facility] [address] [place], [place] [address] Anion gap [Moles/Vol] 11 mmol/L Normal 9-18 [facility] Comment on above: Performed By: #### C BC, CMP, MG1, PHOS #### [facility] [address] [place], [place] [address] AST [Catalytic activity/Vol] 14 U/L Normal 13-35 [facility] Comment on above: Performed By: #### C BC, CMP, MG1, PHOS #### [facility] [address] [place], [place] [address] Bilirubin [Mass/Vol] 0.5 mg/dL Normal 0.2-1.3 [facility] Comment on above: Performed By: #### C BC, CMP, MG1, PHOS #### [facility] [address] [place] [address] Calcium [Mass/Vol] 8.7 mg/dL Normal 8.5-10.2 [facility] Comment on above: Performed By: #### C BC, CMP, MG1, PHOS #### [facility] [address] [place], [place] [address] Chloride [Moles/Vol] 105 mmol/L Normal 97-105 [facility] Comment on above: Performed By: #### C BC, CMP, MG1, PHOS #### [place] [address] [place] [address] CO2 [Moles/Vol] 26 mmol/L Normal 22-30 [facility] Comment on above: Performed By: #### C BC, CMP, MG1, PHOS #### [place] [address] [place] [address] Creatinine [Mass/Vol] 0.58 mg/dL Normal 0.58-0.96 [facility] Comment on above: Performed By: #### C BC, CMP, MG1, PHOS #### [facility] [address] [place] [address] eGFR- Amer. >60 Normal [facility] Comment on above: Performed By: #### C BC, CMP, MG1, PHOS #### [facility] [address] [place] [address] GFR/1.73 sq M predicted among non-blacks MDRD (S/P/Bld) [Vol rate/Area] mL/min/{1.73_m2} Normal [facility] Comment on above: Result Comment: eGFR (Estimated GFR) Units of measure: mL/min/1.73 meters squared eGFR is derived from the reexpressed MDRD Study equation using the following parameters: serum creatinine, age, gender and race. The creatinine assay has been calibrated to be traceable to IDMS. An eGFR <60 mL/min/1.73m2 for >3 months is consistent with chronic kidney disease. Refer to KDOQI guidelines for clinical interpretation. In patients with unstable renal function, e.g. those with acute kidney injury, the eGFR may not accurately reflect actual GFR. Performed By: #### C BC, CMP, MG1, PHOS #### [facility] [address], [place] [address] Glucose [Mass/Vol] 81 mg/dL Normal 74-99 [facility] Comment on above: Result Comment: The [place] Diabetes Association (ADA) provides guidance for cutoff values for fasting glucose and random glucose. The ADA defines fasting as no caloric intake for at least 8 hours. Fasting plasma glucose results between 100 to 125 mg/dL indicate increased risk for diabetes (prediabetes). Fasting plasma glucose results greater than or equal to 126 mg/dL meet the criteria for diagnosis of diabetes. In the absence of unequivocal hyperglycemia, results should be confirmed by repeat testing. In a patient with classic symptoms of hyperglycemia or hyperglycemic crisis, random plasma glucose results greater than or equal to 200 mg/dL meet the criteria for diagnosis of diabetes. Reference: Standards of Medical Care in Diabetes 2016, [place] Diabetes Association. Diabetes Care. 2016.39(Suppl 1). Performed By: #### C BC, CMP, MG1, PHOS #### [facility] [address], [place] [address] Potassium [Moles/Vol] 3.3 mmol/L Low 3.7-5.1 [facility] Comment on above: Performed By: #### C BC, CMP, MG1, PHOS #### [facility] [address], [place] [address] Protein [Mass/Vol] 6.1 g/dL Low 6.3-8.0 [facility] Comment on above: Performed By: #### C BC, CMP, MG1, PHOS #### [facility] [address], [place] [address] Sodium [Moles/Vol] 142 mmol/L Normal 136-144 [facility] Comment on above: Performed By: #### C BC, CMP, MG1, PHOS #### [facility] [address] [place] [address] Urea nitrogen [Mass/Vol] 5 mg/dL Low 7- [facility] Comment on above: Performed By: #### C BC, CMP, MG1, PHOS #### [facility] [address] [place], [place] [address] ECG COMPLETEon 05-12-2019 ECG COMPLETE NAME : FADIA LAN PID : [id number] : 2000 Gender : Female Race : ORD : [id number] Procedure Date : May 12 2019 13:55:01 Edit Date : May 16 2019 11:01:21 Diagnosis:SINUS RHYTHM WITH MARKED SINUS ARRHYTHMIA OTHERWISE NORMAL ECG Confirmed by MD STACEY, PhD, IZABELA ([id number]) on 05/16/2019 11:01:16 AM Ventricular Rate : 67 BPM Atrial Rate : 67 BPM P-R Interval : 144 ms QRS Duration : 86 ms Q-T Interval : 412 ms QTC Calculation(Bazett) : 435 ms P [place] : 62 degrees R [place] : 65 degrees T [place] : 54 degrees Test Reason : Arrhythmia Location : 151 : G51 [id number] Overread By : MD STACEY, PhD,IZABELA Edited By : MD STACEY, PhD,IZABELA Referred By : MERRITT HANLEY Acquired by : YUAN DIAZ Normal [facility] EKG1on 05-12-2019 EKG1 NAME : FADIA LAN PID : [id number] : 2000 Gender : Female Race : ORD : Procedure Date : May 12 2019 09:25:25 Edit Date : May 16 2019 11:01:13 Diagnosis:NORMAL SINUS RHYTHM NORMAL ECG Confirmed by MD STACEY, PhD, IZABELA ([id number]) on 05/16/2019 11:01:12 AM Ventricular Rate : 65 BPM Atrial Rate : 65 BPM P-R Interval : 160 ms QRS Duration : 86 ms Q-T Interval : 416 ms QTC Calculation(Bazett) : 432 ms P [place] : 64 degrees R [place] : 76 degrees T [place] : 45 degrees Test Reason : Location : 115 : G60NS Overread By : MD STACEY, PhD,IZABELA Edited By : MD STACEY, PhD,IZABELA Referred By : , Acquired by : [id number], Normal [facility] GASV + ALLon 05-12-2019 Base Excess 1 mmol/L Normal [facility] Comment on above: Performed By: #### V ALLBG #### [facility] [address] [place] [address] Calcium [Mass/Vol] 1.23 mmol/L Normal 1.08-1.30 [facility] Comment on above: Performed By: #### V ALLBG #### [facility] [address] [place] [address] Carboxyhemoglobin,Kevin 1.1 % Normal <2.0 [facility] Comment on above: Performed By: #### V ALLBG #### [facility] [address] [place] [address] CO2 [Moles/Vol] 28 mmol/L Normal 25-29 [facility] Comment on above: Performed By: #### V ALLBG #### [facility] [address] [place] [address] Glucose [Mass/Vol] 84 mg/dL Normal 60-105 [facility] Comment on above: Performed By: #### V ALLBG #### [facility] [address] [place] [address] HCO3 (Bld) [Moles/Vol] 27 mmol/L Normal 24-28 [facility] Comment on above: Performed By: #### V ALLBG #### [facility] [address] [place] [address] Hematocrit (Bld) [Volume fraction] 40 % Normal 36.0-46.0 [facility] Comment on above: Performed By: #### V ALLBG #### [facility] [address] [place] [address] Hemoglobin (Bld) [Mass/Vol] 12.9 g/dL Normal 11.5-15.5 [facility] Comment on above: Performed By: #### V ALLBG #### [facility] [address] [place] [phone] Lactate [Moles/Vol] 0.9 mmol/L Normal 0.5-2.2 [facility] Comment on above: Performed By: #### V ALLBG #### [facility] [address] [place] [phone] Methemoglobin 0.6 % Normal 0.4-1.5 [facility] Comment on above: Performed By: #### V ALLBG #### [place] [address] [place] [phone] Oxygen (Bld) [Partial pressure] 46 mm Hg High 35-45 [facility] Comment on above: Performed By: #### V ALLBG #### [facility] [address] [place] [phone] Oxyhemoglobin, Kevin. 76 % Normal 60-85 [facility] Comment on above: Performed By: #### V ALLBG #### [facility] [address] [place] [phone] pCO2 49 mm Hg Normal 42-55 [facility] Comment on above: Performed By: #### V ALLBG #### [facility] [address] [place] [phone] pCO2, Temp Correct 49 mm Hg Normal [facility] Comment on above: Performed By: #### V ALLBG #### [facility] [address] [place] [phone] pH (Bld) 7.36 [pH] Normal 7.32-7.42 [facility] Comment on above: Performed By: #### V ALLBG #### [facility] [address] [place] [phone] pH, Temp Corrected 7.36 Normal 7.32-7.42 [facility] Comment on above: Performed By: #### V ALLBG #### [facility] [address] [place] [address] pO2, Temp Corrected 46 mm Hg Normal [facility] Comment on above: Performed By: #### V ALLBG #### [facility] [address] [place] [address] Potassium [Moles/Vol] 3.3 mmol/L Low 3.5-5.0 [facility] Comment on above: Performed By: #### V ALLBG #### [facility] [address] [place] [address] Sodium [Moles/Vol] 140 mmol/L Normal 132-148 [facility] Comment on above: Performed By: #### V ALLBG #### [facility] [address] [place] [address] HISTORY PHYSICALon 9 HISTORY PHYSICAL HNO ID: [id number] Author: Tony Tapia MD Service: Critical Care Author Type: Resident Type: HANDP Filed: 05/12/2019 2:09 PM Note Text: Attestation signed by Skip Zee at 05/12/2019 6:09 PM [facility]FF PHYSICIAN NOTE OF PERSONAL INVOLVEMENT IN CARE I have reviewed the history and physical examination obtained and documented by the resident and I personally participated in the rosado components. I have discussed the case and management of the patient's care. The following comments revise or confirm relevant rosado components of the note. IMPRESSION and PLAN: Fadia Lan is a 18 year old female admitted to the ICU for management of the following problems: Recurrent syncope in the context of possible POTS with concern for seizures - onset of symptoms in the context vaccinations and an episode of staph skin infection now resolved. OSH evaluation includes EEG, MRI, and tilt table testing with no definitive diagnosis. Alert with non-focal exam, no evidence active seizure at this time. Non-focal exam and workup suggest against CVA. Plan EEG and neurology consultation. Monitor pending this. Elevated troponin - unclear etiology. Could this be an autoimmune or post infectious process? Possible tricuspid valve echodensity present on OSH echo, not seen on repeat x2 in context bullous impetigo? No acute ischemic changes on ekg. Monitor on telemetry, serial trop, cardiology consultation. Please refer to the resident note for full details, including further problems and a summary of our mutually agreed upon findings, assessment/plan, and recommendations. Patient/Family Updated: Patient, Fadia Lan and her mother and father, updated regarding the goals of care, medical plan for the day, marketing database consultant recommendations, medical disposition and current medical condition/prognosis as and if clinically indicated. All questions and concerns were answered and addressed at this juncture. They were notified on May 12, 2019. Plan of care discussed with: Provider, RN, Patient. SIGNATURE: Skip Zee MD [facility] May 12, 2019 6:00 PM May 12, 2019 12:44 PM Fadai Lan ADMISSION DATE: 05/12/2019 [id number] LENGTH OF STAY: 0 Fadia is a 18 year old female with - PMH: Bullous impetigo? (bullae after vaccinations?, now resolved) CC : syncope and seizure like episodes She received her routine vaccinations for HPV, meningitis in 11/29 and about 4 weeks later she develops a skin infection with errytherma and blisters. Started on legs and then moved proximally to groin. It was diagnosed to be S Aureus Impetigo by a flight dispatcher. Keflex and mupirocin given and the infection resolved after 1.5 month. 03/01/19 - about 4 weeks after resolution of the skin infection she had a episode of syncope. The episode was follewed by sudden onset fatigue, somnolent; blurry vision, disorientation. It occurred when she was waking down the gonzalez at school, she slowly was falling forward and someone was there to catch her. Reports would've hit floor if someone was not there. no bowel/ bladder incontinence, no tongue bite, reports some confusion after this episode. Parents picked her up from school; she had slurred speech, nausea, dry heaving and took her to ER. He symptoms resoled after receiving IV fluids in ER. Labs - troponin 0.139, urine drug screen negative, TSH, ammonia, CBC, Cr, BUN, electrolytes normal Echo - possible Lesion on ventricular side of TV CT head wo con - normal Repeat ECHO showed persistent 1 week later, she had a similar episode but also with a prodrome of chest pain in the middle (which lasted for a few seconds and intermittently present), short of breath. Chest tellez did not change with inspiration, leaning forward/back, and was non radiating. She gets admitted to hospital for workup Echo normal, CT head normal MRI normal . Holter placed. EEG normal. TILT table test: did not meet criteria; POTS was diagnosed. She was treated with fludricortisone, midodrine, salt tablets, and potassium. Her symptoms persisted. 04/23: Started taking pyridostigmine because continued symptoms of intermittent chest pain, shortness of breath, lack of concentration, brain fog, weakness, lightheadedness, muscle paralysis, She would have episodes of LOC. After pyridostigmine, she developed symptoms of ?hemoptysis so medication changed back to midodrine. ? - After this time, at home, she would have chest pain, lightheaded, dizzy, tremors. She has eye twitching, arms are jerking, no prodromal symptoms. She states she passed out; no urinary incontinence, bit tongue once; feels wiped out after; no confusion after just exhausted. ? - She had 7 seizures and one happened during sleep. 1130 last night. She was on the floor passed out. Trembling. - She was unable to speak during these episodse. - she was grabbing her chest and crying and then would have flailing, hands locked, head jerking. Toes curled - Driven to OSH. Troponin was elevated and ?Doubled with what February (no report) ? - Family history: HTN, CAD, mom-thyroid issues. - Social history: denies drug use, not sexually active, lives at home with parents MEDICATIONS: Prior to Admission Medications: fludrocortisone acetate (FLUDROCORTISONE ORAL) Take 0.1 mg by mouth. pyridostigmine bromide 30 mg tab Take 60 mg by mouth. midodrine (PROAMATINE) 2.5 mg tablet Take 7.5 mg by mouth three times daily. citalopram hydrobromide (CELEXA) 10 mg tablet Take 10 mg by mouth once daily. Current Facility-Administered Medications Medication Dose Route Frequency - magnesium sulfate in water 4-6 g in sterile water 50 ml 4-6 g INTRAVENOUS PRN - sodium phosphate 45 mmol in NaCl 0.9% 250 mL 45 mmol INTRAVENOUS PRN - heparin 5,000 Units injection 5,000 Units SUBCUTANEOUS q 12 H - NaCl 0.9% 3-5 mL 3-5 mL INTRAVENOUS q 12 H - acetaminophen 1,000 mg tab(s) (TYLENOL) 1,000 mg ORAL/FEEDING TUBE q 6 H PRN - insulin regular human injection (short acting) (NovoLIN R,HumuLIN R) SUBCUTANEOUS q 6 H - insulin regular 100 units in NaCl 0.9% 100 mL iv infusion - ICU NOMOGRAM 0.5-30 Units/hr INTRAVENOUS CONTINUOUS - insulin regular human iv bolus 2-10 Units 2-10 Units INTRAVENOUS PRN - dextrose 50 % 12.5-25 g injection 12.5-25 g INTRAVENOUS PRN - dextrose 40 % 15 g 15 g ORAL PRN - glucagon 1 mg injection (GLUCAGEN) 1 mg SUBCUTANEOUS PRN - potassium chloride ER 40 mEq tab(s) (K-DUR, KLOR-CON) 40 mEq ORAL ONCE ALLERGIES: ALLERGIES No Known Allergies NET FLUID BALANCE No intake or output data in the 24 hours ending 05/12/19 1244 MEDICATIONS Hospital/inpatient medications reviewed PHYSICAL EXAM: none BP 96/59 Pulse 61 Temp 36.8 ?C (98.2 ?F) (Oral) Resp 21 Ht 167.6 cm (5' 6 ) SpO2 96% HEENT: Oral Mucosa: Moist mucous membranes Feeding Tube: No Eyes: PERRLA Neck: Unremarkable; No adenopathy or JVD; no thyromegaly Cardiovascular: Regular rhythm Relevant Hemodynamic Data: HDS Respiratory: Clear to auscultation Abdomen: Soft and Nontender Extremities: Edema- No Peripheral Pulses- Present all extremities Skin: Abnormalities- No Breakdown- No Neurologic: Awake, oriented. No tremor on exam. 3+ DTR. 5/5 STRENGTH, sensation intact. NUTRITION: oral Enteral Feeds: no DATA: Laboratory: CBC: Recent Labs 05/12/19 0856 WBC 5.72 HB 12.6 HCT 36.1 PLT 328 MCV 88.7 RDWCV 11.3* COAG: No results for input(s): APTT, INR in the last 168 hours. BMP: Recent Labs 05/12/19 0907 05/12/19 0856 GLUC -- 81 NA -- 142 K -- 3.3* CHLOR -- 105 CO2 28 26 ANION -- 11 BUN -- 5* CREAT -- 0.58 CHEM: Recent Labs 05/12/19 0856 ALB 4.1 TPROT 6.1* CA 8.7 MG 1.9 HEPATIC: Recent Labs 05/12/19 0856 ALKPHOS 54 ALT 10 AST 14 TBILI 0.5 URINALYSIS: Recent Labs 05/12/19 0927 SPGR 1.009 UGLUC Negative UBILI Negative UKET Negative UHB 1+* UPROT Negative UWBC 0-5 CARDIAC: Recent Labs 05/12/19 1123 TROPT <0.010 EKG: most recent image reviewed TELE: most recent recordings reviewed CXR: most recent image reviewed Echocardiogram: most recent image reviewed Cardiac Catheterization: most recent image reviewed Radiology: most recent image reviewed ASSESSMENT AND PLAN: See below Patient Checklist: ? Are restraints necessary: No ? Deep vein thrombosis prophylaxis administered? Yes ? Stress ulcer prophylaxis? No, not indicated. ? Nasogastric tube? No ? Tapia catheter necessary? No ? Is central line essential? No ? Plan discussed with assigned RN? Yes ? Family updated within last 24 hours? Yes Maintenance: Anticoagulation: Anticoagulant AND Antiplatelet Medications (From admission, onward) Start Dose Route Frequency Ordered Stop 05/12/19 0900 heparin 5,000 Units injection (Medical Risk Categories) 5,000 Units SUBCUTANEOUS EVERY 12 HOURS 05/12/19 0832 -- 05/12/19 0830 vte non-pharmacologic prophylaxis - none indicated (wi,oh) 05/12/19 08 activity - mobilize patient (wi,il) VTE Prophylaxis: VTE prophylaxis appropriate Bowels: no problems Disposition: floor planning Code/Social/Dispo: full code Case to be discussed with Dr. Zee Signed: Nicole Simmons Ms Time of service: 12:44 PM Date of Service: May 12, 2019 ------- Senior addendum 18F with a PMH of bullous impetigo? (recently treated) presents for syncope and seizure like episodes. She was admitted to an OSH since 02/2019 and had a troponin elevation to 0.139 which was present on admission again. TV echodensity seen on TTE but resolved on last TTE, and now presents with continued nonspecific symptoms of presyncope, intermittent chest pain, intermittent shortness of breath, blurry vision. NEURO #Syncope vs seizure - Syncope has been extensively worked up with TTE which showed a TV density but no other structural causes of syncope, arrhythmia with Holter- normal, Tilt-table- negative but diagnosed and treated for POTS, EEG- normal, CT head normal, MRI normal. Labs: TSH normal. Troponin elevation - Occasionally had myalgias and weakness? - may need rheumatologic evaluation - Ddx: vasovagal syncope, autonomic dysfunction, PE (if TV echodensity, denies drug use?), drug use including inhalants, adrenal insufficiency PLAN - CBC, CMP, TSH, ANGI - Consult neurology to review MRI images and further workup - Consult cardiology for evaluation of TV echodensity? And Tropinemia CV #Troponin elevation Unclear etiology. Unlikely had ACS. Ddx: myocarditis, pericarditis, muscle? CK, CKMB nl Intermittent chest pain, shortness of breath PLAN - Consult cardiology to evaluate TTE images and possible need of TAB #TV valve echodensity Ddx: endocarditis? Although denies drug, libman sack? vs thrombus Present on 2 TTEs, but not on last TTE Plan - Consult cardiology for possible TAB RESP: none ID: none GI: none HEMONC: pending evaluation of TTE DVT ppx: hep subq Dispo: floor Tony Tapia PGY2 Note to be reviewed by Dr. Yayo Bill [facility] Magnesiumon 05-12-2019 Magnesium [Mass/Vol] 1.9 mg/dL Normal 1.7-2.3 [facility] Comment on above: Performed By: #### C BC, CMP, MG1, PHOS #### [facility] [address] [place], [place] [address] PROGRESSon 05-12-2019 PROGRESS HNO ID: [id number] Author: John Valdivia Service: Cardiovascular Medicine Author Type: Physician Type: Progress Notes Filed: 05/13/2019 2:01 PM Note Text: [facility] HISTORY AND PHYSICAL Fadia Lan [id number] PRIMARY SERVICE: [employer] DATE OF ADMISSION: 05/12/2019 CHIEF COMPLAINT: troponinemia HISTORY OF PRESENT ILLNESS: 18F with recurrent syncopal and seizure like episodes transferred from OSH for further management. Cardiology consulted for TV mobile lesion, intermittent chest pain, and troponinemia. Developed a rash over the summer. Thought to be impetigo (S aureus). A few months later started developing recurrent syncope and chest pain. Described chest pain as fleeting, sharp, not positional, and not pleuritic. Sometimes proceeded the syncope and other times happened without syncope. Was admitted to the hospital 02/2019 and underwent extensive cardiac and neuro w/u including Holter monitor, tilt table testing, echo, MRI, brain, EEG. All was normal except the echo which showed a mobile lesion on the ventricular side of the TV which may represent thicken chordal structure . This was seen on one more echo later that month and was thought to likely be a prominent chordae. Of note, at that time had troponinemia of 0.139. Drug screen was negative and she denies any h/o drug use. Was diagnosed with POTS and treated with pyridostigmine, fludro, midodrine, and salt tabs but had recurrence of syncope. Admitted again early April, w/u negative again but notably troponin still elevated (per notes was double the prior one but we dont know the actual value). Had multiple episodes of syncope 05/11 so presented to OSH and transferred her for 2nd opinon. Feels well, denies any current CP, troponin on admit negative. PAST MEDICAL HISTORY No past medical history on file. No past surgical history on file. FAMILY HISTORY No family history on file. SOCIAL HISTORY Social History Tobacco Use - Smoking status: Not on file Substance Use Topics - Alcohol use: Not on file - Drug use: Not on file HOME MEDICATIONS fludrocortisone acetate (FLUDROCORTISONE ORAL) Take 0.1 mg by mouth. pyridostigmine bromide 30 mg tab Take 60 mg by mouth. midodrine (PROAMATINE) 2.5 mg tablet Take 7.5 mg by mouth three times daily. citalopram hydrobromide (CELEXA) 10 mg tablet Take 10 mg by mouth once daily. INPATIENT MEDICATIONS Current Facility-Administered Medications Medication Dose Route Frequency - magnesium sulfate in water 4-6 g in sterile water 50 ml 4-6 g INTRAVENOUS PRN - sodium phosphate 45 mmol in NaCl 0.9% 250 mL 45 mmol INTRAVENOUS PRN - heparin 5,000 Units injection 5,000 Units SUBCUTANEOUS q 12 H - NaCl 0.9% 3-5 mL 3-5 mL INTRAVENOUS q 12 H - acetaminophen 1,000 mg tab(s) (TYLENOL) 1,000 mg ORAL/FEEDING TUBE q 6 H PRN - insulin regular human injection (short acting) (NovoLIN R,HumuLIN R) SUBCUTANEOUS q 6 H ALLERGIES ALLERGIES No Known Allergies ROS: 10 point ROS reviewed and negative except per HPI Physical Exam Gen: comfortable, with EEG leads in place Neck: no JVD appreciated CV: RR, S1/S2, no m/r/g Resp: NWOB, no wheezing Abd: soft, NT/ND Ext: WWP, no lower ext edema Neuro: alert and oriented DATA Laboratory: Recent Labs 05/12/19 0856 WBC 5.72 HB 12.6 HCT 36.1 PLT 328 Recent Labs 05/12/19 0907 05/12/19 0856 NA -- 142 K -- 3.3* CO2 28 26 BUN -- 5* CREAT -- 0.58 GLUC -- 81 MG -- 1.9 Recent Labs 05/12/19 1123 TROPT <0.010 No results found for: CHOL, HDL, LDL, TG No results found for: HBA1C EKG: NSR ASSESSMENT AND PLAN: 18F with recurrent syncopal and seizure like episodes transferred from OSH for further management. Cardiology consulted for TV mobile lesion, intermittent chest pain, and troponinemia. #TV mobile density -I uploaded the echos to [employer] Would repeat TTE here. Ask them to focus on the TV. Possible TAB, if TTE is abnormal or high suspicion #Troponinemia: unclear etiology, myocarditis 2/2 staph skin infection or some infiltrative disease? -consider cardiac MRI (wait for staff addendum before ordering) #Intermittent atypical chest pain: doesn't sound cardiac but possible related to whatever is driving her troponin. We will continue to follow with you. Staff addendum to follow Brooks Clinton MD Air Quality Engineer Pager: [phone] For communication after 5 pm on weekdays and after 12 pm on weekends, please page the following: - Clinical Cardiology patients on all floors: page [phone] - All other patients: after hours JORGE A (found in the On-Call directory by searching JORGE A) - For any urgent or emergent issues, [place] [phone] (Heart failure A, Imaging, DIRECTOR OF BRAND MARKETING/PA) or [phone] (Heart failure B, EP/EP TCI, Intervention, J33) --- Resident update: Patient seen by cardiology team and staff copy chief. Briefly, Ms. Loaiza is an 18 year old female who began having syncopal episodes and seizures in the last few months after skin infection. Cardiology consulted regarding patient's intermittent chest pain, elevated troponin, and mobile lesion on the ventricular side of the TV. Chest pain is atypical. EKG sinus rhythm, with sinus arrhyhtmia, which is common at a young age. While CT angio would provide excellent negative predictive value regarding ACS, it would subject patient to radiation. Patient may benefit from cardiac MRI in the future, but not at this time. For now, please order TTE to better assess mobile lesion. Cardiology will continue to follow. Drew Walton MD [phone] [facility] STAFF PHYSICIAN NOTE OF PERSONAL INVOLVEMENT IN CARE I have reviewed the consult note obtained and documented by the resident and I personally participated in the rosado components. I have discussed the case and management of the patient's care. The following comments revise or confirm relevant rosado components of their note. IMPRESSION: This is a 18 year old female who presents with presumably elevated troponin and new onset syncope and seizures ECG normal Without evidence of cardiomyopathy PLAN: repeat troponin at [facility] And if elevated consider further testing Echocardiogram telemetry monitoring John Valdivia MD DATE of SERVICE: May 13, 2019 TIME of SERVICE: 2:00 PM Normal [facility] Phosphoruson 05-12-2019 Phosphate [Mass/Vol] 3.9 mg/dL Normal 2.7-4.8 [facility] Comment on above: Performed By: #### C BC, CMP, MG1, PHOS #### [place] [address] [place] [address] Sed Rate Westergrenon 2018 Sed Rate Westergren 2 mm/hr Normal 0-20 [facility] Comment on above: Performed By: #### T NT, WSR, TSH #### [place] [address] Staph aureus PCRon 9 MRSA PCR Negative Normal [facility] Comment on above: Performed By: #### V ALLBG #### [place] [address] S aureus Spec Source Nasal Normal [facility] Comment on above: Performed By: #### V ALLBG #### [place] [address] Staph aureus PCR Negative Normal [facility] Comment on above: Result Comment: Perf ormance characteristics of this assay for testing specimens from patients <=21 years of age were determined by [facility] Maria R Koo [facility] Pathology and Laboratory Medicine [place] [facility] Performance on this age group has not been approved by the FDA. -[facility] is regulated under CLIA as qualified to perform high complexity testing. This test is used for clinical purposes. It should not be regarded as investigational or for research. Performed By: #### V ALLBG #### [place] [address] TSHon 05-12-2019 TSH Qn 1.970 uU/mL Normal 0.510-4.300 [facility] Comment on above: Result Comment: If t he patient is , TSH reference range varies by gestational period: First Trimester (weeks 9-12): 0.180-2.990 mcIU/mL Second Trimester: 0.110-3.980 mcIU/mL Third Trimester: 0.480-4.710 mcIU/mL Favian Rosas et al. A Practical Approach for the Verifications and Determination of Site- and Trimester-Specific Reference Intervals for Thyroid Function tests in . Thyroid, 2019:29:3:412-420. Paul E, et al. 2017 Guidelines of the [place] Thyroid Association for the Diagnosis and Management of Thyroid Disease during and the . Thyroid, 2017:27:3:315-389. Reference ranges were not locally established for this patient's age group. The normal values are based on the following source: Awa Aceves V. Reference Ranges for Adults and Children: Pre-analytical Considerations. [employer] Performed By: #### V ALLBG #### [facility] [employer] [address] [place] [address] Toxicology Screen,Uron 05-12 Amphetamines, Urine Negative Normal Negative [facility] Comment on above: Result Comment: Cuto ff threshold at 1000 ng/mL. Performed By: #### U TOX2, UAWMIC #### [facility] [employer] [address] [place] [address] Barbiturates, Urine Negative Normal Negative [facility] Comment on above: Result Comment: Cuto ff threshold at 200 ng/mL. Performed By: #### U TOX2, UAWMIC #### [facility] [employer] [address] [place] [address] Benzodiazepines, Ur Negative Normal Negative [facility] Comment on above: Result Comment: Cuto ff threshold at 200 ng/mL. Performed By: #### U TOX2, UAWMIC #### [facility] [employer] [address] [place] [address] Cannabinoids, Urine Negative Normal Negative [facility] Comment on above: Result Comment: Cuto ff threshold at 50 ng/mL. Performed By: #### U TOX2, UAWMIC #### [place] [phone] Cocaine, Urine Negative Normal Negative [facility] Comment on above: Result Comment: Cuto ff threshold at 300 ng/mL. Performed By: #### U TOX2, UAWMIC #### [place] [phone] Ethanol, Urine <11 Normal <11 [facility] Comment on above: Performed By: #### U TOX2, UAWMIC #### [place] [phone] Opiates, Urine Negative Normal Negative [facility] Comment on above: Result Comment: Cuto ff threshold at 300 ng/mL. Performed By: #### U TOX2, UAWMIC #### [place] [phone] Oxycodone, Urine Negative Normal Negative [facility] Comment on above: Result Comment: Cuto ff threshold at 100 ng/mL. Comment: Immunoassay screen only. Cross reactivity with other substances can occur with immunoassay screening. Detection of any drug(s) in this urine toxicology panel is presumptive only. These tests are for medical purposes only and should not be used for compliance monitoring, legal, or forensic use. Samples should be within normal physiological conditions (e.g. pH). This assay does not include adulteration/specimen validity testing. In clinical settings, confirmatory testing is at the practitioner's discretion [1]. If clinically indicated, confirmation by high specificity, quantitative methodology, which includes adulteration/specimen validity testing, may be requested on the same specimen through Client Services ([phone]) if contacted within 48 hours of initial testing. [1]Substance Abuse and Mental Health Services Administration (2012). Clinical Drug Testing in Primary Care Technical Assistance Publication Series 32. Department of Health and Human Services, [place], p.10. Performed By: #### U TOX2, UAWMIC #### [address], [place] [address] Phencyclidine, Urine Negative Normal Negative [facility] Comment on above: Result Comment: Cuto ff threshold at 25 ng/mL. Performed By: #### U TOX2, UAWMIC #### [place] [address] [place], [place] [address] Troponin Ton 05-12-2019 Troponin T.cardiac [Mass/Vol] ug/L Normal 0.000-0.029 [facility] Comment on above: Performed By: #### T NT, WSR, TSH #### [place] [address] Urinalysis with Microscopico n 05-12-2019 Bilirubin, Urine Negative Normal Negative [facility] Comment on above: Performed By: #### U TOX2, UAWMIC #### [place] [address] Clarity (U) Clear Normal Clear [facility] Comment on above: Performed By: #### U TOX2, UAWMIC #### [place] [address] Color (U) Yellow Normal Yellow [facility] Comment on above: Performed By: #### U TOX2, UAWMIC #### [place] [id number] Comments SEE COMMENT Normal [facility] Comment on above: Result Comment: N/A Performed By: #### U TOX2, UAWMIC #### [place] [address] [place] [phone] Epithelial cells LM.HPF (Urine sed) [#/Area] SEE COMMENT Normal [facility] Comment on above: Result Comment: Few Squamous Epithelial Cells Performed By: #### U TOX2, UAWMIC #### [place] [address] [place] [id number] Glucose Ql (U) Negative Normal Negative [facility] Comment on above: Performed By: #### U TOX2, UAWMIC #### [facility] [address] [place], [place] [address] Hemoglobin/Blood,Ur 1+ Critically abnormal Negative [facility] Comment on above: Performed By: #### U TOX2, UAWMIC #### [facility] [address] [place], [place] [address] Ketones Ql (U) Negative Normal Negative [facility] Comment on above: Performed By: #### U TOX2, UAWMIC #### [facility] [address] [place], [place] [address] Leukest Negative Normal Negative [facility] Comment on above: Performed By: #### U TOX2, UAWMIC #### [facility] [address] [place], [place] [address] Nitrite Ql (U) Negative Normal Negative [facility] Comment on above: Performed By: #### U TOX2, UAWMIC #### [facility] [address] [place], [place] [address] pH (Bld) 6.0 Normal 4.5-8.0 [facility] Comment on above: Performed By: #### U TOX2, UAWMIC #### [facility] [address] [place], [place] [address] Protein (U) [Mass/Vol] Negative Normal Negative [facility] Comment on above: Performed By: #### U TOX2, UAWMIC #### [facility] [address] [place], [place] [address] RBC (U) [#/Vol] 0-3 Normal 0-3 [facility] Comment on above: Performed By: #### U TOX2, UAWMIC #### [facility] [address] [place], [place] [address] Specific [place], Ur 1.009 Normal 1.005-1.030 [facility] Comment on above: Performed By: #### U TOX2, UAWMIC #### [facility] [address] [place] [phone] Urine Álvaro Comment SEE COMMENT Normal [facility] Comment on above: Result Comment: N/A Performed By: #### U TOX2, UAWMIC #### [facility] [address] [place] [address] Urobilinogen Qn (U) Normal Normal Normal [facility] Comment on above: Performed By: #### U TOX2, UAWMIC #### [facility] [address] [place] [address] WBC (Bld) [#/Vol] 0-5 Normal 0-5 [facility] Comment on above: Performed By: #### U TOX2, UAWMIC #### [facility] [address] [place] [phone] CNCOon 05-01-2019 CNCO Letter Text Normal [facility] Vital Signs Date Time Vital Sign Value Performing Clinician Facility 10-10-2020 21:15-0400 Diastolic blood pressure 57 mm[Hg] Estuardo Carter MD Work Phone: [employer] Work Phone: 10-10-2020 21:15-0400 Heart rate 92 /min Estuardo Carter MD Work Phone: [employer] Work Phone: 10-10-2020 21:15-0400 Respiratory rate 16 /min Estuardo Carter MD Work Phone: [employer] Work Phone: 10-10-2020 21:15-0400 SaO2% (BldA) [Mass fraction] 96 % Estuardo Carter MD Work Phone: [employer] Work Phone: 10-10-2020 21:15-0400 Systolic blood pressure 105 mm[Hg] Estuardo Carter MD Work Phone: [employer] Work Phone: 10-10-2020 19:12-0400 Body temperature 98.71 [degF] Estuardo Carter MD Work Phone: [employer] Work Phone: 10-10-2020 16:39-0400 Body weight 57.61 kg Estuardo Carter MD Work Phone: [employer] Work Phone: 05-12-2019 11:07-0500 Body temperature 98.6 [degF] [facility] Comment on above: Performed By: #### VALLBG #### [facility] [address] [place] [id number] Encounters Encounter Date Encounter Type Care Provider Facility Start: 08-17-2022 End: 08-18-[address] DMITRI GOLD . Facility:[facility] Start: 2022 Encounter for preprocedural laboratory examination DR DMITRI GOLD . [facility] Start: 07-02-2022 End: 07-02-[address] DMITRI GOLD . Facility:[facility] Start: 06-29-2022 End: 06-30-[address] DMITRI GOLD . Facility:[facility] Start: 06-29-2022 End: 06-30-2022 Encounter for preprocedural laboratory examination DR DMITRI GOLD . Facility:[facility] Start: 06-16-2022 End: 06-17-[address] DMITRI GOLD . Facility:[facility] Start: 06-11-2022 End: 06-11-[address] DANILO DINERO . Facility:[facility] Start: 05-11-2022 End: 05-12-[address] DMITRI GOLD . Facility:[facility] Start: 03-04-2022 End: 03-04-[address] DMITRI GOLD . Facility:[facility] Start: 01-18-2022 End: 08-08-[address] DANILO DINERO . Facility: Start: 10-10-2020 End: 10-10-2020 Emergency department patient visit ESTUARDO CARTER [facility] Start: 10-10-2020 End: 10-10-2020 Emergency department patient visit Estuardo Carter MD Work Phone: [facility] Comment on above: Flank pain (Primary Dx); Dermoid cyst of right ovary; Post-op pain Procedures Date Procedure Procedure Detail Performing Clinician Start: 10-10-2020 Ct abdomen & pelvis w/contrast material Estuardo Carter MD Work Phone: Start: 10-10-2020 Comprehensive metabo lic panel Estuardo Carter MD Work Phone: Start: 10-10-2020 Urinalysis microscopic only Estuardo Carter MD Work Phone: Start: 10-10-2020 Urnls dip stick/tabl et rgnt auto w/o microscopy Estuardo Carter MD Work Phone: Plan of Treatment Date Care Activity Detail Author Start: 02-11-2021 Influenza vaccination Flu vacc ine (Season Ended) [facility] [employer] Phone: Start: 2019 DTaP/Tdap/Td vaccine (1 - Tdap) DTaP/Tdap/Td vaccine (1 - Tdap) [facility] [employer] Phone: Start: 2016 COVID-19 Vaccine (1) COVID-19 Vaccin e (1) [facility] Work Phone: Start: 2016 Screening for Chlamy alda trachomatis Chlamydia screen [facility] [employer] Phone: Start: 2015 HIV screening HIV screen [facility] Work Phone: Start: 2011 HPV vaccine (1 - 2-d ose series) HPV vaccine (1 - 2-dose series) [facility] [employer] Phone: Start: 2001 Varicella vaccine (1 of 2 - 2-dose childhood series) Varicella vaccine (1 of 2 - 2-dose childhood series) [employer] Phone: Start: 2000 Hepatitis C screening Hepatitis C sc steve [employer] Phone: Oxygen therapy [[facility] Data Set] Initiate Oxygen Therapy Protocol Respiratory Care Routine Daily until discontinued starting 10/10/2020 [employer] Phone: Comment on above: Daily until disconti nued starting 10/10/2020 Phase I & II - meter ed glucose Phase I & II - metered glucose Point of Care Testing Routine As Needed until discontinued starting 10/10/2020 [employer] Phone: Comment on above: As Needed until disc ontinued starting 10/10/2020 Surgical Pathology Surgical Path ology Lab Routine Release Upon Ordering for 1 Occurrences starting 10/10/2020 [employer] Phone: Comment on above: Release Upon Orderin g for 1 Occurrences starting 10/10/2020 Payers Date Payer Category Payer Unknown [id number] 2.16.84 [id number] 2000 Unknown [id number] 2.16.84 [id number] 2000 Unknown [id number] 2.16.84 [id number] 2000 Unknown [id number] 2.16.84 [id number] 2000 Unknown [id number] 2.16.84 [id number] 2000 Unknown [id number] 2.16.84 [id number] 2000 Unknown [id number] 2.16.84 [id number] 2000 Unknown [id number] 2.16.84 [id number] 1959 Unknown [id number] Social History Date Type Detail Facility Start: 10-10-2020 Tobacco smoking stat [facility] Never smoker [employer] Phone: Start: 10-10-2020 Tobacco use and exposure Never used [employer] Start: 10-10-2020 Alcohol intake Lifetime non-d tyler (finding) [employer] Phone: Start: 10-10-2020 History SDOH Alcohol Frequency 1 [employer] Phone: Sex Assigned At Not on file [employer] Phone: Exposure to SARS-CoV -2 (event) Not sure [employer] Clinical Note 07-02-2022 Note Date & Type Note Facility 07-02-2022 Note OPERATIVE NOTE OPERATION DATE: 07/02/2022 PROCEDURE: Diagnostic laparoscopy with left ovarian cystectomy and lysis of bowel adhesions from the pelvic side wall. PREOPERATIVE DIAGNOSIS: Pelvic pain, left ovarian cyst. POSTOPERATIVE DIAGNOSIS: Pelvic pain, left ovarian cyst, bowel adhesions to the left pelvic side wall. ANESTHESIA: General. SURGEON: Dmitri Gold D.O. SYSTEMS QA ANALYST: YASEMIN Stauffer URINE OUTPUT: Yellow and clear. BLOOD LOSS: 5 mL. FINDINGS: Normal appearing uterus. Normal appearing tubes. Absent right ovary. Left ovarian cyst, approximately 4 cm in size. No gross evidence of endometriosis. Bowel adhesions to the patient's pelvic side wall on the left side. PROCEDURE: The patient was taken back to the Operating Room where she was placed in dorsal lithotomy position after given general anesthesia. The patient was prepped and draped in normal sterile fashion. A sponge stick was placed into the patient's vagina. Attention was turned to the patient's abdomen, where a small umbilical incision was made. The fascia was tented using Cynthia clamps and the fascia was entered sharply. Confirmation of intra-abdominal placement of the 10 mm port was confirmed under direct visualization using a laparoscope. The patient's abdomen was then insufflated using CO2 gas with approximately 4 liters. A second port was placed left laterally; this was done under direct visualization with a 5 mm port. Survey of the patient's abdomen demonstrated normal liver and gallbladder. Survey of the patient's pelvic anatomy demonstrated the right ovary was absent, left ovary with cyst measuring approximately 4 cm in size, normal appearing tubes as well as normal appearing uterus. The LigaSure was used to remove the left ovarian cyst and blunt and sharp dissection was used to dissect the bowel off the pelvic side wall. No endometrial implants could be noted, no evidence of any pelvic disease was seen, normal appearing pelvic cavity. All instruments were removed from the patient's abdomen. The patient's abdomen was desufflated of CO2 gas. The patient tolerated the procedure well. Sponge stick was removed from the patient's vagina. The patient's infraumbilical fascia was closed using #0 Vicryl on a GI needle. The patient's skin was closed laterally and infraumbilically using 4-0 Vicryl. The patient tolerated the procedure well. Sponge, lap and needle counts were correct x 2. The patient was taken to Recovery Room in stable condition. [facility] History of Present illness Narrative 10-10-2020 Leon Leon RN - 10/10/2020 9:35 PM Leon Goodwin RN - 10/10/2020 9:27 PM Leon Goodwin RN - 10/10/2020 8:55 PM Leon Goodwin RN - 10/10/2020 8:45 PM EDT Note Date & Type Note Facility 10-10-2020 History of Present illness Narrative Discharge Criteria Inpatients must meet Criteria 1 through 7. All other patients are either YES or N/A. If a NO is chosen then Anesthesia or Surgeon must be notified. 1. Minimum 30 minutes after last dose of sedative medication, minimum 120 minutes after last dose of reversal agent. Yes 2. Systolic BP stable within 20 mmHg for 30 minutes & systolic BP between 90 & 180 or within 10 mmHg of baseline. Yes 3. Pulse between 60 and 100 or within 10 bpm of baseline. Yes 4. Spontaneous respiratory rate >/= 10 per minute. Yes 5. SaO2 >/= 95 or >/= baseline. Yes 6. Able to cough and swallow or return to baseline function. Yes 7. Alert and oriented or return to baseline mental status. Yes 8. Demonstrates controlled, coordinated movements, ambulates with steady gait, or return to baseline activity function. Yes 9. Minimal or no pain or nausea, or at a level tolerable and acceptable to patient. Yes 10. Takes and retains oral fluids as allowed. Yes 11. Procedural / perioperative site stable. Minimal or no bleeding. Yes 12. If GI endoscopy procedure, minimal or no abdominal distention or passing flatus. N/A 13. Written discharge instructions and emergency telephone number provided. Yes 14. Accompanied by a responsible adult. Yes Discharge instructions given to patient and parents with understanding voiced. Questions answered. Ambulated to bathroom per one assist, gait steady no dizziness or lightheadedness noted. Once in bathroom sat on chair states I feel really dizzy like I am going to pass out cool washcloth applied to forehead and neck, skin warm dry and pale pink, resp easy and unlabored. After approx. 5-10 minutes assisted back to chair without incident. States I can't breathe reassurance given, instructed to take slow deep breath, SpO2 reading was 95-97%, explained that it was probably just the air from the procedure. documented in this encounter [employer] Phone: Hospital Discharge instructions 10-10-2020 Instructions Note Date & Type Note Facility 10-10-2020 Hospital Discharg e instructions Leon Leon RN - 10/10/2020 SAME DAY SURGERY DISCHARGE INSTRUCTIONS 1. Do not drive or operate hazardous machinery for 24 hours. 2. Do not make important personal or business decisions for 24 hours. 3. Do not drink alcoholic beverages for 24 hours. 4. Do not smoke tobacco products for 24 hours. 5. Eat light foods (Jell-O, soups, etc....) and drink plenty of fluids (water, Sprite, etc...) up to 8 glasses per day, as you can tolerate. 6. If your bandages become soaked with bright red blood, place another dressing pad over your bandages. (DO NOT remove original bandage.) Call your surgeon for further instructions. A small amount of bright red blood is to be expected. 7. You may remove your dressing the morning following surgery; leave the steri-strips in place, they will fall off on their own. 8. If no drainage from incisions you may shower. 9. Limit your activities for 24 hours. Do not engage in heavy work until your surgeon gives you permission. DO NOT lift anything heavier than 10 pounds. You may go up & down stairs and do any activity that can be done comfortably. 10. Report the following signs or any questions regarding your physical condition to your surgeon immediately: Excessive swelling of, or around the wound area. Redness or pus-like drainage Temperature of 100 degrees (F) or above. Excessive pain. If unable to urinate 4 hours after surgery. If bleeding at surgery site continues after 5-10 minutes of pressure. 11. Pain Control: Take pain meds as prescribed. You may use over the counter meds like Acetaminophen or Ibuprofen if not part of the meds already prescribed. While on narcotic pain meds DO NOT drive, operate machinery or make business decisions. 12. Try to avoid constipation (no bowel movement) by using over the counter Colace once or twice daily and increasing your fluid intake. Please call if no bowel movement after increasing fluid intake, use of Milk of Magnesia, Pericolace (laxative) or Dulcolax suppositories. 13. No sexual activity, tampons, douches, sitting in hot tubs/saunas or swimming in pools/ponds for 6 weeks or until cleared by your surgeon. 14. Call your surgeon for any questions regarding your surgery. 15. Remove Scopolamine patch in 3 days 16. Call for an appointment to see your surgeon in [address] Rao -- [place] office [phone] [place] office [phone] documented in this encounter [employer]: Evaluation note Note Date & Type Note Facility Evaluation note Diagnosis Flank pain- Primary Abdominal pain, unspecified site Dermoid cyst of right ovary Post-op pain Other acute postoperative pain Pelvic pain Right ovarian cyst Other and unspecified ovarian cyst documented in this encounter [employer]: Summary Purpose Family History No Family History Records FoundNo Family History Records FoundNo Family History Records Found Advance Directives No Advanced Directives Records FoundNo Advanced Directives Records FoundNo Advanced Directives Records Found Hospital Course Note HNO ID: [id number] Author: Alison Morales Service: General Internal Medicine Author Type: Physician Type: Discharge Summary Filed: 05/16/2019 12:11 PM Note Text: DISCHARGE SUMMARY PATIENT NAME: Fadia Lan ADMISSION DATE: 05/12/2019 DISCHARGE DATE: 05/16/2019 Attending Physician: Shanae Morales Code Status: Not on file Highest Readmission Risk Score: 7 The 30 day readmissions risk score is derived from an internally validated risk model which evaluates patient level characteristics, utilization history, medication orders and lab results up until the day of discharge. Patients with a score of 40 or above are considered highest risk for readmission. Specific patient level drivers will be listed at the bottom of the summary. HPI: Copied from [facility] by Dr. Tony Tapia on 05/12/2019. Fadia is a 18 year old female with - PMH: Bullous impetigo? (bullae after vaccinations?, now resolved) ? CC : syncope and seizure like episodes ? She received her routine vaccinations for HPV, meningitis (more content not included)... Additional Source Comments INFORMATION SOURCE (unrecogn ized section and content) DATE CREATED AUTHOR 08/14/2019 [facility] DATE CREATED AUTHOR AUTHOR'S ORGANIZ ATION 10/15/2020 [facility] DATE CREATED AUTHOR AUTHOR'S ORGANIZ ATION 08/26/2022 [facility] Reason for Visit (unrecogniz ed section and content) Reason Comments Flank Pain pain upon movement; left sided Ordered Prescriptions (unrec ognized section and content) Prescription Sig Dispensed Refills Start Date End Da te HYDROcodone-acetaminophe n (NORCO) 5-325 MG per tabletIndications:Post-o p pain Take 1 tablet by mouth every 4 hours as needed for Pain for up to 3 days. Intended supply: 3 days. Take lowest dose possible to manage pain 12 tablet 0 10/10/2020 10/13/2020 ketorolac (TORADOL) 10 MG tablet Take 1 tablet by mouth every 6 hours as needed for Pain 12 tablet 0 10/10/2020 FOR RECORDS PERTAINING TO PATIENTS WHO ARE OR HAVE BEEN ENROLLED IN A CHEMICAL DEPENDENCY/SUBSTANCEABUSE PROGRAM, SOME INFORMATION MAY BE OMITTED. This clinical summary was aggregated from multiple sources. Caution should be exercised in using it in the provision of clinical care. This summary normalizes information from multiple sources, and as a consequence, information in this document may materially change the coding, format and clinical context of patient data. In addition, data may be omitted in some cases. CLINICAL DECISIONS SHOULD BE BASED ON THE PRIMARY CLINICAL RECORDS. [employer] [facility]. provides no warranty or guarantee of the accuracy or completeness of information in this document.
[2023-06-24 18:07] VITALS: BP 109/65; PULSE 82; RESP 18; TEMP 37.2; O2SAT 99; BMI 21.0
--- NOTE | 2023-06-24 18:14 | ED.ABDPAIN1 ---
HPI - Abdominal Pain General Chief Complaint: Abdominal Pain Stated Complaint: Cramping, Lower Adbominal Pain Time Seen by Provider: 06/24/23 18:12 Source: patient Mode of arrival: walk-in Limitations: no limitations History of Present Illness HPI narrative: this patient's here for left lower abdominal pain. She has not had nausea vomiting or diarrhea. Bowel movements been normal. She is a little concerned because she's had a massive right ovarian cyst that required emergency surgery. 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 She has no urinary symptoms such as frequency urgency or dysuria. She is not running a fever. Does not have any back or flank pain. Has a hormonal contraceptive agent plus she's not sexually active at this time. Related Data Home Medications Medication Instructions Recorded Confirmed No Known Home Medications 01/21/23 01/21/23 Allergies Allergy/AdvReac Type Severity Reaction Status Date / Time Penicillins Allergy Verified 01/21/23 11:42 PFSH PFSH Social History Smoking status: Never smoker Exam Narrative Exam Narrative: awake alert vital signs are stable she's afebrile she appears in no discomfort whatsoever. Examination abdomen shows mild increased bowel sounds in all quadrants but no phenomena and to represent obstruction. There is no hepatomegaly. No tenderness at McBurney's point. Dawson sign is negative. She has very slight tenderness in the deep left lower quadrant but no peritoneal findings. Constitutional Vital Signs, click to edit/add: Last Vital Signs Temp 98.9 F 06/24/23 18:07 Pulse 82 06/24/23 18:07 Resp 18 06/24/23 18:07 BP 109/65 06/24/23 18:07 Pulse Ox 99 06/24/23 18:07 O2 Del Method Room Air 06/24/23 18:07 Course Vital Signs Vital signs: Vital Signs Temperature 98.9 F 06/24/23 18:07 Pulse Rate 82 06/24/23 18:07 Respiratory Rate 18 06/24/23 18:07 Blood Pressure 109/65 06/24/23 18:07 Pulse Oximetry 99 06/24/23 18:07 Oxygen Delivery Method Room Air 06/24/23 18:07 Temperature 98.9 F 06/24/23 18:07 Pulse Rate 82 06/24/23 18:07 Respiratory Rate 18 06/24/23 18:07 Blood Pressure 109/65 06/24/23 18:07 Pulse Oximetry 99 06/24/23 18:07 Oxygen Delivery Method Room Air 06/24/23 18:07 MDM - Abdominal Pain MDM Narrative Medical decision making narrative: due to her history we will get a pelvic ultrasound to rule out any type of adnexal pathology. Other laboratory tests are pending. Case will be discussed with Dr. Malone who is taking care of her management at this time. Discharge Plan Discharge Chief Complaint: Abdominal Pain Clinical Impression: Abdominal pain Patient Disposition: Still a Patient Prescriptions / Home Meds: No Action No Known Home Medications Referrals: Todd José MD [Primary Care Provider] - 1 week
[2023-06-24 18:52] LABS: Basophils Percent Auto 0.6 % (0.2-2.0); Eosinophils Absolute Auto 0.3 10^3/uL (0.0-0.7); Hemoglobin 13.3 g/dL (12.0-16.0); Immature Granulocytes Abs Auto 0.01 10^3/uL (0.00-0.03); Immature Granulocytes Pct Auto 0.1 % (0.0-0.5); Lymphocytes Percent Auto 43.1 % (20.5-60.0); Mean Corpuscular Hemoglobin 32.3 pg (26.7-34.0); Mean Corpuscular Volume 92.2 fL (81.0-99.0); Mean Platelet Volume 8.7 fL (9.5-13.5); Monocytes Absolute Auto 0.6 10^3/uL (0.3-0.8); Monocytes Percent Auto 8.3 % (1.7-12.0); Neutrophils Absolute Auto 2.9 10^3/uL (1.4-6.5); Neutrophils Percent Auto 42.9 % (43.0-75.0); Platelet Count 346 10^3/uL (150-450); Red Blood Count 4.12 10^6/uL (4.20-5.40); Red Cell Distribution Width 11.3 % (11.0-15.0); White Blood Count 6.9 10^3/uL (4.0-11.0)
[2023-06-24 18:55] LABS: Bilirubin Urine NEGATIVE (NEGATIVE); Blood Urine NEGATIVE (NEGATIVE); Clarity Urine CLEAR (CLEAR); Color Urine LT. YELLOW (YELLOW); Glucose Urine UA NEGATIVE (NEGATIVE); Ketones Urine NEGATIVE (NEGATIVE); Leukocyte Esterase Urine NEGATIVE (NEGATIVE); Nitrite Urine NEGATIVE (NEGATIVE); Protein Urine NEGATIVE (NEG/TRACE); Urobilinogen Urine 0.2 EU/dL (0.2-1.0)
--- NOTE | 2023-06-24 18:56 | US_ITS ---
The [place] [id number] Patient Name: GONZALEZ SHANKAR MRN: [id number] date: 2000 Sex: F Assigned Patient Location: ER Current Patient Location: ER Accession/Order Number: [id number] Exam Date: 06/24/2023 19:50 Report Date: 06/24/2023 21:10 At the request of: RICARDA FLORES Procedure: US pelvis transvaginal EXAMINATION: US pelvis transvaginal TECHNIQUE: Transvaginal sonography. Grayscale and color flow Doppler imaging. HISTORY: rule out ovarian torsion. COMPARISON: 01/21/2023 FINDINGS: Uterus and cervix: Uterus measures 8 x 4.3 x 5 cm. No focal abnormality. Endometrium: Thickness measures 7mm. Intrauterine device in place. Right ovary: Prior right oophorectomy Left ovary: Measures 4.5 x 2.5 x 2.7 cm. 3 cm heterogeneous hypoechoic lesion of the right ovary with increased through transmission of sound and no internal blood flow, consistent with likely hemorrhagic cyst. Normal arterial and venous blood flow to the left ovary. Adnexa: No adnexal mass lesion. Cul-de-sac: Small amount of free fluid in the cul-de-sac asymmetric to the right. US/US pelvis transvaginal IMPRESSION: No evidence for ovarian torsion. 3.6 cm probable hemorrhagic cyst of left ovary. Electronically authenticated by: FRANCISCO SNOWDEN Date: 06/24/2023 21:10
[2023-06-24 18:58] LABS: HCG Qualitative Urine* NEGATIVE (NEGATIVE); Urine Microscopic Indicated NO
[2023-06-24 19:08] LABS: Anion Gap 9.9; BUN Creatinine Ratio 14.5; Calcium 8.7 mg/dL (8.5-10.1); Carbon Dioxide 31.3 mmol/L (21.0-32.0); Chloride 102 mmol/L (98-107); Estimated GFR (African America >60 (>=60); Estimated GFR (Non-African Ame >60 (>=60); Glucose 76 mg/dL (74-106); Potassium 3.2 mmol/L (3.5-5.1); Sodium 140 mmol/L (136-145)
[2023-06-24 19:15] VITALS: BP 99/58; PULSE 70; O2SAT 97
[2023-06-24 21:44] VITALS: PULSE 80; O2SAT 99
[2023-06-24 21:47] VITALS: BP 101/65
== END 2023-06-24 21:48 | disposition home or self-care (01) ==
PROVIDERS: Emergency Medicine Emergency Medical Services; Emergency Provider Internal Medicine; PCP Family Medicine
DX: N83.202 Unspecified ovarian cyst, left side (principal)
CPT/HCPCS: 36415; 76830; 80048; 81003; 84703; 85025; 99284

== ENCOUNTER 2023-09-02 15:51 | Outpatient (OUT) | payer OTHER, SELFPAY ==
--- NOTE | 2023-09-02 15:59 | US_ITS ---
The [place] [id number] Patient Name: GONZALEZ SHANKAR MRN: [id number] date: 2000 Sex: F Assigned Patient Location: US Current Patient Location: Accession/Order Number: [id number] Exam Date: 09/02/2023 16:07 Report Date: 09/05/2023 07:31 At the request of: NIKHIL FRANCIS Procedure: US pelvis w/ transvaginal EXAMINATION: US pelvis w/ transvaginal HISTORY: RIGHT SIDED ABDOMINAL PAIN R10.9 COMPARISON: No relevant comparison available. FINDINGS: Uterus is normal in size, contour and echotexture measuring 7.0 x 3.0 x 4.4 cm, retroverted. Linear hyperechogenicity identified within the endometrial cavity, normally positioned IUD The endometrium measures 5.6 mm, normal. The right ovary is not visualized consistent with provided history of hysterectomy Left ovary measures 5.1 x 2.7 x 3.2 cm. Normal color and Doppler flow. 3.2 cm area of anechoic echogenicity slightly irregular lama with no definite internal echoes Small amount of free fluid in the pelvic cul-de-sac likely physiologic US/US pelvis w/ transvaginal IMPRESSION: Normal position of IUD 3.2 cm left ovarian simple cyst Electronically authenticated by: KRISTEN HOFFMANN Date: 09/05/2023 07:31
== END 2023-09-02 15:52 | disposition home or self-care (01) ==
LOC: US 15:51
PROVIDERS: PCP Family Medicine; Visit Provider Obstetrics & Gynecology
DX: R10.9 Unspecified abdominal pain (principal); N83.292 Other ovarian cyst, left side
CPT/HCPCS: 76830; 76856

== ENCOUNTER 2023-10-13 16:13 | Emergency (ER) | payer OTHER, SELFPAY ==
[2023-10-13 16:17] VITALS: BP 110/61; PULSE 86; TEMP 36.8; O2SAT 97
--- NOTE | 2023-10-13 16:23 | US_ITS ---
The [address] [address] Patient Name: GONZALEZ SHANKAR MRN: [id number] date: 2000 Sex: F Assigned Patient Location: ER Current Patient Location: ED.MAIN Accession/Order Number: [id number] Exam Date: 10/13/2023 17:14 Report Date: 10/13/2023 18:52 At the request of: BHARGAV ISAACS Procedure: US pelvis transvaginal Delete that US pelvis transvaginal HISTORY: left ovarian cyst/torsion COMPARISONS: Ultrasound dated 07/06 and 09/02/2023 TECHNIQUE: Transvaginal imaging the pelvis was performed. FINDINGS: UTERUS: Normal in size and echogenicity. The uterus measures 8.0 x 3.9 x 5.6 cm. MYOMETRIUM:Unremarkable. ENDOMETRIUM: There is an IUD in the uterus within its expected location. The endometrium measures4.2 mm which is within normal limits. RIGHT OVARY: The patient is status post right oophorectomy. LEFT OVARY: There is vascular flow to the left ovary. The left ovary demonstrates an involuting follicle measuring up to 2.0 cm. The left ovary measures 4.2 x 2.7 x 2.6 cm. OTHER:There is no significant free fluid in the pelvis. US/US pelvis transvaginal IMPRESSION: Involuting follicle in the left ovary measuring up to 2.0 cm. Status post right oophorectomy. IUD positioned within the endometrium.. Electronically authenticated by: JEANINE JACOB Date: 10/13/2023 18:52
--- NOTE | 2023-10-13 16:27 | ED_ITS ---
HPI - Abdominal Pain General Chief Complaint: Abdominal Pain Stated Complaint: Abdominal Pain Time Seen by Provider: 10/13/23 16:18 Source: patient Mode of arrival: walk-in History of Present Illness HPI narrative: Patient is a 23-year-old female who presents to the emergency department for increasing left lower quadrant abdominal pain. She states she had on ultrasound [address] Gold's office and was diagnosed with a 3.2 cm simple left ovarian cyst. She states that in the last several days her pain has been increasing and she is concerned that the ovarian cyst has ruptured. She is on control, she is not concerned for . She has not had any fevers, chills, nausea, vomiting. No flank or back pain. She drove herself to the emergency department. She states she was supposed to have an ultrasound next week as a follow-up as an outpatient. She states she could not wait for that ultrasound due to pain. She is not taking anything prior to arrival for symptoms. Related Data Home Medications ?Medication ?Instructions ?Recorded ?Confirmed birthcontrol 10/13/23 Previous Rx's ?Medication ?Instructions ?Recorded ketorolac 10 mg tablet 10 mg PO TID PRN pain #10 tabs 10/13/23 ondansetron 4 mg disintegrating 4 mg PO Q6H PRN nausea and 10/13/23 tablet vomiting #12 tabs Allergies Allergy/AdvReac Type Severity Reaction Status Date / Time Penicillins Allergy Verified 01/21/23 11:42 Review of Systems ROS Constitutional Denies: fever or chills Ears, nose, mouth, and throat Denies: throat pain or nasal congestion Respiratory Denies: shortness of breath Gastrointestinal Reports: abdominal pain; Denies: nausea or vomiting Genitourinary Reports: pelvic pain; Denies: painful urination or blood in urine Musculoskeletal Denies: back pain Integumentary/Breast Denies: rash Hematologic/Lymphatic Denies: easy bruising or easy bleeding PFSH PFSH Social History Smoking status: Never smoker Exam Narrative Exam Narrative: Gen.: Awake, alert, in no distress Head: Normocephalic, atraumatic ENT: Moist mucous membranes Respiratory: No respiratory distress Gastrointestinal: Abdomen is soft, nondistended and Tender to palpation with voluntary guarding to the left lower quadrant. No pain out of proportion on exam Extremities: Moves extremities equally Psych: Normal mood and affect Neuro: No focal neuro deficit Skin: Warm, dry, intact Constitutional Vital Signs, click to edit/add: Last Vital Signs Temp 98.3 F 10/13/23 16:17 Pulse 86 10/13/23 16:17 Resp 16 10/13/23 16:17 BP 110/61 10/13/23 16:17 Pulse Ox 97 10/13/23 16:17 O2 Del Method Room Air 10/13/23 16:17 Course Vital Signs Vital signs: Vital Signs Temperature 98.3 F 10/13/23 16:17 Pulse Rate 86 10/13/23 16:17 Respiratory Rate 16 10/13/23 16:17 Blood Pressure 110/61 10/13/23 16:17 Pulse Oximetry 97 10/13/23 16:17 Oxygen Delivery Method Room Air 10/13/23 16:17 Temperature 98.3 F 10/13/23 16:17 Pulse Rate 86 10/13/23 16:17 Respiratory Rate 16 10/13/23 16:17 Blood Pressure 110/61 10/13/23 16:17 Pulse Oximetry 97 10/13/23 16:17 Oxygen Delivery Method Room Air 10/13/23 16:17 MDM - Abdominal Pain MDM Narrative Medical decision making narrative: Urine specimen is unremarkable, test is negative and ultrasound shows left ovarian cyst of 2 cm. Patient discharged with Toradol and Zofran. Follow- up with [facility] and return to the ER if symptoms change or worsen. Medical Records Attestation: I reviewed the patient's medical records. Lab Data Attestation: I reviewed the patient's lab results. Labs: Lab Results 10/13/23 Range/Units 16:39 Urine Color Lt. yellow (YELLOW) Urine Clarity Clear (CLEAR) Urine pH 7.5 (5.0-9.0) Ur Specific [place] 1.015 (1.005-1.025) Urine Protein Negative (NEG/TRACE) mg/dL Urine Glucose (UA) Negative (NEGATIVE) mg/dL Urine Ketones Negative (NEGATIVE) mg/dL Urine Occult Blood Negative (NEGATIVE) Urine Nitrite Negative (NEGATIVE) Urine Bilirubin Negative (NEGATIVE) Urine Urobilinogen 0.2 (0.2-1.0) EU/dL Ur Leukocyte Esterase Small A (NEGATIVE) Urine RBC None seen (0-2) #/HPF Urine WBC 0-2 A (NONE SEEN) #/HPF Ur Squamous Epith Cells Rare (NONE/RARE) #/LPF Urine Crystals None seen (None Seen) #/HPF Urine Bacteria None seen (NONE SEEN) #/HPF Urine Casts None seen (NONE SEEN) #/LPF Urine Mucus None seen (NONE SEEN) Urine HCG, Qual Negative (NEGATIVE) Imaging Data US - abdomen: Attestation: I have reviewed the pertinent imaging results. Radiologist's impression: ITS Impressions Transvaginal US 10/13/23 16:23 IMPRESSION: Involuting follicle in the left ovary measuring up to 2.0 cm. Status post right oophorectomy. IUD positioned within the endometrium.. Electronically authenticated by: JEANINE JACOB Date: 10/13/2023 18:52 Discharge Plan Discharge Stand Alone Forms: Portal Instructions Chief Complaint: Abdominal Pain Clinical Impression: Pelvic pain, Cyst of left ovary Patient Disposition: Home, Self-Care Time of Disposition Decision: 19:04 Condition: Good Prescriptions / Home Meds: New ketorolac 10 mg tablet 10 mg PO TID PRN (Reason: pain) Qty: 10 0RF ondansetron 4 mg tablet,disintegrating 4 mg PO Q6H PRN (Reason: nausea and vomiting) Qty: 12 0RF No Action birthcontrol Print Language: Mohawk Instructions: Ovarian Cyst (ED), Pelvic Pain (ED) Referrals: Dmitri Gold DO [Physician] - 1 week Todd José MD [Primary Care Provider] - 1 week
[2023-10-13] MEDS: KETOROLAC TROMETHAMINE 10 MG TABLET PO (16:39)
[2023-10-13 16:49] LABS: Bilirubin Urine NEGATIVE (NEGATIVE); Blood Urine NEGATIVE (NEGATIVE); Clarity Urine CLEAR (CLEAR); Color Urine LT. YELLOW (YELLOW); Glucose Urine UA NEGATIVE (NEGATIVE); Ketones Urine NEGATIVE (NEGATIVE); Leukocyte Esterase Urine SMALL (NEGATIVE); Nitrite Urine NEGATIVE (NEGATIVE); Protein Urine NEGATIVE (NEG/TRACE); Specific Gravity Urine 1.015 (1.005-1.025); Urobilinogen Urine 0.2 EU/dL (0.2-1.0); pH Urine 7.5 (5.0-9.0)
[2023-10-13 16:52] LABS: HCG Qualitative Urine* NEGATIVE (NEGATIVE); Urine Microscopic Indicated YES
[2023-10-13 17:05] LABS: Bacteria Urine NONE SEEN #/HPF (NONE SEEN); Cast Seen? NONE SEEN #/LPF (NONE SEEN); Crystals Seen? None Seen #/HPF (None Seen); Mucus Urine NONE SEEN (NONE SEEN); RBC Urine NONE SEEN #/HPF (0-2); Squamous Epithelial Cell Urine RARE #/LPF (NONE/RARE); WBC Urine 0-2 #/HPF (NONE SEEN)
[2023-10-13 19:20] VITALS: BP 111/63; PULSE 75; O2SAT 99
== END 2023-10-13 19:24 | disposition home or self-care (01) ==
PROVIDERS: Physician Assistant; Emergency Provider Emergency Medicine Emergency Medical Services; PCP Family Medicine
DX: N83.202 Unspecified ovarian cyst, left side (principal); R10.2 Pelvic and perineal pain; Z97.5 Presence of (intrauterine) contraceptive device
CPT/HCPCS: 76830; 81001; 84703; 99284

== ENCOUNTER 2023-10-17 12:55 | Outpatient (OUT) | payer OTHER, SELFPAY ==
--- NOTE | 2023-10-17 12:57 | US_ITS ---
The [place] [id number] Patient Name: GONZALEZ SHANKAR MRN: [id number] date: 2000 Sex: F Assigned Patient Location: [facility] Current Patient Location: [facility] Accession/Order Number: [id number] Exam Date: 10/17/2023 13:00 Report Date: 10/17/2023 13:51 At the request of: NIKHIL FRANCIS Procedure: US pelvis w/ transvaginal EXAMINATION: US pelvis w/ transvaginal HISTORY: Left ovarian cyst follow up N83.202 COMPARISON: No relevant comparison available. FINDINGS: The uterus is normal in size, contour and myometrial echotexture measuring 7.7 x 6.0 x 4.3 cm. The uterus is anteverted. No focal myometrial mass. The endometrium measures 2.5 mm, normal. The right ovary is surgically absent The left ovary measures 3.9 x 2.2 x 2.4 cm. Normal color Doppler flow. Cystic area measuring 1.9 x 1.8 x 1.7 cm with peripheral soft tissue signal in central low-level echoes. Small amount of fluid in the pelvic cul-de-sac, physiologic in amount US/US pelvis w/ transvaginal IMPRESSION: Persistent cystic lesion of the left ovary measuring 1.9 cm. This could represent a functional cyst or complex cyst Electronically authenticated by: KRISTEN HOFFMANN Date: 10/17/2023 13:51
--- OUTSIDE RECORDS SUMMARY | 2023-10-17 13:01 | XMS_ITS | CCD ---
Author Organization [facility] Care Team Providers Care Business Process Expert Name Role Phone Danilo Dinero MD Primary Care Provider [phone] ESTUARDO CARTER Attending Unavailable DANILO DINERO Primary Care Unavailable ROSETTE ., DR CARRASCO Admitting Unavailable HOY ., DR CARRASCO Attending Unavailable HOY ., DR CARRASCO Primary Care Unavailable HOY ., DR CARRASCO Consulting Unavailable TIOT ., DR TEJEDA Admitting Unavailable TITO ., DR TEJEDA Attending Unavailable HOY ., DR CARRASCO Primary Care Unavailable TITO ., DR TEJEDA Consulting Unavailable TITO ., DR TEJEDA Admitting Unavailable TITO ., DR TEJEDA Attending Unavailable HOY ., DR CARARSCO Primary Care Unavailable [place], DR KRISTEN Bonilla Consulting Unavailable TITO ., [...] DR TEJEDA Consulting Unavailable HOY ., DR CARRASOC Primary Care Unavailable SANDRA, DR GREYSON Joy Admitting Unavailabl e SANDRA, DR GREYSON Joy Attending Unavailabl e SANDRA, DR GREYSON Joy Consulting Unavailabl erick HOFFMANN, DR KRISTEN Bonilla Consulting Unavailable TITO ., DR TEJEDA Admitting Unavailable TITO ., DR TEJEDA Attending Unavailable HOY ., DR CARRASCO Primary Care Unavailable TITO ., DR TEJEDA Consulting Unavailable TITO ., DR TEJEDA Admitting Unavailable TITO [place], DR TEJEDA Attending Unavailable ROSETTE ., DR CARRASCO Primary Care Unavailable TITO [place], DR TEJEDA Consulting Unavailable CAN PEÑA Consulting Unavailable LEÓN QUINTANA Consulting Unavailable DMITRI GOLD Attending Unavailable Allergies Allergy Classification Reported Allergen(s) Allergy Type Date of Onset Reaction(s) Facility (1 source) Penicillin Drug Allergy [facility] Repository Medications Current Medications Medication Drug [...] 08-19-2022 Chlamydia by HALLEY Negative Normal Negative [facility] Comment on above: Performed By: #### C TVNGNA ####[facility] [id number] [place] [address]Dr. Swapna Severino Gonococcus by HALLEY Negative Normal Negative [facility] Comment on above: Performed By: #### C TVNGNA ####[facility] [address] [place] [address]DrGrayson Severino Trich vag by HALLEY Negative Normal Negative [facility] Comment on above: Performed By: #### C TVNGNA ####[facility] [address] [place] [address]DrGrayson Severino CBC AUTO DIFFon 07-02-2022 BASO # 0.0 103/ul Normal 0.0-0.1 [facility] Comment on above: Performed By: #### C BC #### [facility] [address] [address] [address] Swapna Severino Basophils/100 WBC (Bld) 0.6 % Normal 0.2-2.0 [facility] Comment on above: Performed By: #### C BC #### [facility] [address] [address] [address] Swapna Severino EO # 0.4 103/ul Normal 0.0-0.7 [facility] Comment on above: Performed By: #### C BC #### [facility] [address] [address] [address] Swapna Severino Eosinophils/100 WBC (Bld) 6.3 % Normal 0.9-7.0 [facility] Comment on above: Performed By: #### C BC #### [facility] [address] [address] [address] Swapna Severino Erythrocyte distribution width (RBC) [Ratio] 11.9 % Normal 11.0-15.0 [facility] Comment on above: Performed By: #### C BC #### [facility] [address] [place] [address] Dr. Swapna Severino Hematocrit (Bld) [Volume fraction] 39.8 % Normal 36.0-48.0 [facility] Comment on above: Performed By: #### C BC #### [facility] [address] [place] [address] Dr. Swapna Severino Hemoglobin (Bld) [Mass/Vol] 13.9 g/dL Normal 12.0-16.0 [facility] Comment on above: Performed By: #### C BC #### [facility] [address] [place] [address] Dr. Swapna Severino IG # 0.01 10e3/ul Normal 0.00-0.03 [facility] Comment on above: Performed By: #### C BC #### [facility] [address] [place] [address] Dr. Swapna Severino IG % 0.2 % Normal 0.0-0.5 [facility] Comment on above: Performed By: #### C BC #### [facility] [address] [place] [address] Dr. Swapna Severino LYMPH # 2.4 103/ul Normal 1.2-3.8 [facility] Comment on above: Performed By: #### C BC #### [facility] [address] [place] [address] Dr. Swapna Severino Lymphocytes/100 WBC (Bld) 37.4 % Normal 20.5-60.0 [facility] Comment on above: Performed By: #### C BC #### [facility] [address] [place] [address] Dr. Swapna Severino MANUAL DIFF REQ NO Normal [facility] Comment on above: Performed By: #### C BC #### [facility] [address] [place] [address] Dr. Swapna Severino MCH (RBC) [Entitic mass] 31.0 pg Normal 26.7-34.0 [facility] Comment on above: Performed By: #### C BC #### [facility] [address] [place] [address] Dr. Swapna Severino MCHC (RBC) [Mass/Vol] 34.9 g/dL Normal 29.9-35.2 [facility] Comment on above: Performed By: #### C BC #### [facility] [address] [address] [address] Swapna Severino MCV (RBC) [Entitic vol] 88.6 fL Normal 81.0-99.0 [facility] Comment on above: Performed By: #### C BC #### [facility] [address] [place] [address] Dr. Swapna Severino MONO # 0.6 103/ul Normal 0.3-0.8 [facility] Comment on above: Performed By: #### C BC #### [facility] [address] [place] [address] Dr. Swapna Severino Monocytes/100 WBC (Bld) 8.5 % Normal 1.7-12.0 [facility] Comment on above: Performed By: #### C BC #### [facility] [address] [place] [address] Dr. Swapna Severino NEUT # 3.1 103/ul Normal 1.4-6.5 [facility] Comment on above: Performed By: #### C BC #### [facility] [address] [place] [address] Dr. Swapna Severino Neutrophils/100 WBC (Bld) 47.0 % Normal 43.0-75.0 [facility] Comment on above: Performed By: #### C BC #### [facility] [address] [place] [address] Dr. Swapna Severino Platelet mean volume (Bld) [Entitic vol] 8.5 fL Critically low 9.5-13.5 [facility] Comment on above: Performed By: #### C BC #### [facility] [address] [place] [address] Dr. Swapna Severino PLT 363 103/ul Normal 150-450 [facility] Comment on above: Performed By: #### C BC #### [facility] [address] [place] [address] Dr. Swapna Severino RBC 4.49 106/ul Normal 4.20-5.40 [facility] Comment on above: Performed By: #### C BC #### [facility] [address] [place], [place] [address] Dr. Swapna Severino WBC 6.5 103/ul Normal 4.0-11.0 [facility] Comment on above: Performed By: #### C BC #### [facility] [address] [place], [place] [address] Dr. Swapna Severino CYTOLOGYon 07-02-2022 SENT TO REF LAB 07/02/2022 Normal [facility] Comment on above: Performed By: #### C YTO ####[facility] [address] [place], [place] [address]LfDr. Swapna Severino PREG HCG QUALon 07-02-2022 , QUAL Negative Normal NEGATIVE [facility] Comment on above: Performed By: #### P REG #### [facility] [address] [place], [place] [address] Dr. Swapna Severino Covid-19 PCR (CVDTB)on 06-13 SARS-CoV-2 (COVID-19) RNA HALLEY+probe Ql (Unsp spec) Not detected Normal NOT DETECTED [facility] Comment on above: Result Comment: This test is not yet approved or cleared by the [place] FDA. When there are no FDA-approved or cleared tests available, and other criteria are met, FDA can make tests available under an emergency access mechanism called an Emergency Use Authorization (EUA). The EUA for this test is supported by the Director [place] [employer] of Health and Human Service's (HHS's) declaration [...] SARS-CoV-2. Performed By: #### C VDTBH #### [facility] [address] [place] [address] Dr. Swapna Severino US PELVIS AND TRANSVAGon [...] SULY ANDERSON Date: 2022-06-17 07:48 Normal [facility] CBC AUTO DIFFon 06-11-2022 BASO # 0.0 103/ul Normal 0.0-0.1 [facility] Comment on above: Performed By: #### C BC #### [facility] [address] [place] [address] Dr. Swapna Severino Basophils/100 WBC (Bld) 0.5 % Normal 0.2-2.0 [facility] Comment on above: Performed By: #### C BC #### [facility] [address] [address] [address] Swapna Severino EO # 0.4 103/ul Normal 0.0-0.7 [facility] Comment on above: Performed By: #### C BC #### [facility] [address] [place] [address] Dr. Swapna Severino Eosinophils/100 WBC (Bld) 6.8 % Normal 0.9-7.0 [facility] Comment on above: Performed By: #### C BC #### [facility] [address] [place] [address] Dr. Swapna Severino Erythrocyte distribution width (RBC) [Ratio] 11.9 % Normal 11.0-15.0 [facility] Comment on above: Performed By: #### C BC #### [facility] [address] [place] [address] Dr. Swapna Severino Hematocrit (Bld) [Volume fraction] 38.0 % Normal 36.0-48.0 [facility] Comment on above: Performed By: #### C BC #### [facility] [address] [place] [address] Dr. Swapna Severino Hemoglobin (Bld) [Mass/Vol] 13.2 g/dL Normal 12.0-16.0 [facility] Comment on above: Performed By: #### C BC #### [facility] [address] [place] [address] Dr. Swapna Severino IG # 0.01 10e3/ul Normal 0.00-0.03 [facility] Comment on above: Performed By: #### C BC #### [facility] [address] [place] [address] Dr. Swapna Severino IG % 0.2 % Normal 0.0-0.5 [facility] Comment on above: Performed By: #### C BC #### [facility] [address] [place] [address] Dr. Swapna Severino LYMPH # 1.7 103/ul Normal 1.2-3.8 [facility] Comment on above: Performed By: #### C BC #### [facility] [address] [place] [address] Dr. Swapna Severino Lymphocytes/100 WBC (Bld) 26.9 % Normal 20.5-60.0 [facility] Comment on above: Performed By: #### C BC #### [facility] [address] [place] [address] Dr. Swapna Severino MANUAL DIFF REQ NO Normal [facility] Comment on above: Performed By: #### C BC #### [facility] [address] [place] [address] Dr. Swapna Severino MCH (RBC) [Entitic mass] 31.4 pg Normal 26.7-34.0 [facility] Comment on above: Performed By: #### C BC #### [facility] [address] [place] [address] Dr. Swapna Severino MCHC (RBC) [Mass/Vol] 34.7 g/dL Normal 29.9-35.2 [facility] Comment on above: Performed By: #### C BC #### [facility] [address] [place] [address] Dr. Swapna Severino MCV (RBC) [Entitic vol] 90.3 fL Normal 81.0-99.0 [facility] Comment on above: Performed By: #### C BC #### [facility] [address] [place] [address] Dr. Swapna Severino MONO # 0.5 103/ul Normal 0.3-0.8 [facility] Comment on above: Performed By: #### C BC #### [facility] [address] [place] [address] Dr. Swapna Severino Monocytes/100 WBC (Bld) 7.9 % Normal 1.7-12.0 [facility] Comment on above: Performed By: #### C BC #### [facility] [address] [place] [address] Dr. Swapna Severino NEUT # 3.6 103/ul Normal 1.4-6.5 [facility] Comment on above: Performed By: #### C BC #### [facility] [address] [place] [address] Dr. Swapna Severino Neutrophils/100 WBC (Bld) 57.7 % Normal 43.0-75.0 [facility] Comment on above: Performed By: #### C BC #### [facility] [address] [place] [address] Dr. Swapna Severino Platelet mean volume (Bld) [Entitic vol] 8.6 fL Critically low 9.5-13.5 [facility] Comment on above: Performed By: #### C BC #### [facility] [address] [place] [address] Dr. Swapna Severino PLT 333 103/ul Normal 150-450 [facility] Comment on above: Performed By: #### C BC #### [facility] [address] [place] [address] Dr. Swapna Severino RBC 4.21 106/ul Normal 4.20-5.40 [facility] Comment on above: Performed By: #### C BC #### [facility] [address] [place] [address] Dr. Swapna Severino WBC 6.2 103/ul Normal 4.0-11.0 [facility] Comment on above: Performed By: #### C BC #### [facility] [address] [place] [address] Dr. Swapna Severino ER URINE PROFILEon 2 Bilirubin Ql (U) Negative Normal NEGATIVE [facility] Comment on above: Performed By: #### P REGU, ERUR #### [facility] [address] [place] [address] Dr. Swapna Severino Clarity (U) CLEAR Normal CLEAR [facility] Comment on above: Performed By: #### P REGU, ERUR #### [facility] [address] [place] [address] Dr. Swapna Severino Color (U) LT. YELLOW Normal YELLOW [facility] Comment on above: Performed By: #### P REGU, ERUR #### [facility] [address] [place] [address] Dr. Swapna Severino ERUAHD A micrscopic examination will be performed if indicated. Normal [facility] Comment on above: Performed By: #### P REGU, ERUR #### [facility] [address] [place] [address] Dr. Swapna Severino Glucose Ql (U) Negative Normal NEGATIVE [facility] Comment on above: Performed By: #### P REGU, ERUR #### [facility] [address] [place] [address] Dr. Swapna Severino Hemoglobin Ql (U) Negative Normal NEGATIVE [facility] Comment on above: Performed By: #### P REGU, ERUR #### [facility] [address] [address] [address] Swapna Severino Ketones Ql (U) Negative Normal NEGATIVE [facility] Comment on above: Performed By: #### P REGU, ERUR #### [facility] [address] [place] [address] Dr. Swapna Severino LEUKOCYTES Negative Normal NEGATIVE [facility] Comment on above: Performed By: #### P REGU, ERUR #### [facility] [address] [place] [address] Dr. Swapna Severino Nitrite Ql (U) Negative Normal NEGATIVE [facility] Comment on above: Performed By: #### P REGU, ERUR #### [facility] [address] [place] [address] Dr. Swapna Severino pH (U) 6.5 [pH] Normal 5-9 [facility] Comment on above: Performed By: #### P REGU, ERUR #### [facility] [address] [place] [address] Dr. Swapna Severino SPEC GRAVITY 1.015 Normal 1.005-<=1.02 5 [facility] Comment on above: Performed By: #### P REGU, ERUR #### [facility] [address] [place] [address] Dr. Swapna Severino UA PROTEIN Negative Normal NEGATIVE/ TRACE [facility] Comment on above: Performed By: #### P REGU, ERUR #### [facility] [address] [place] [address] Dr. Swapna Severino UR MICRO IND NOT INDICATED Normal [facility] Comment on above: Performed By: #### P REGU, ERUR #### [facility] [address] [place] [address] Dr. Swapna Severino Urobilinogen Qn (U) 0.2 {Arpan'U}/dL Normal 0.2 - 1. 0 [facility] Comment on above: Performed By: #### P REGU, ERUR #### [facility] [address] [place] [address] Dr. Swapna Severino URon 06-11-2022 , QUAL Negative Normal NEGATIVE [facility] Comment on above: Performed By: #### P REGU, ERUR #### [facility] [address] [place], [place] [address] Dr. Swapna Severino PROF CHEM 8 (BAS METB)on Anion gap [Moles/Vol] 9.2 mmol/L Normal [facility] Comment on above: Performed By: #### B MP ####[facility] [address] [place] [id number] Swapna Severino Calcium [Mass/Vol] 8.7 mg/dL Normal 8.5-10.1 [facility] Comment on above: Performed By: #### B MP ####[facility] [address] [place] [id number] Swapna Severino Chloride [Moles/Vol] 103 mmol/L Normal 98-107 [facility] Comment on above: Performed By: #### B MP ####[facility] [address] [place] [address] Swapna Severino CO2 [Moles/Vol] 31.1 mmol/L Normal 21.0-32.0 [facility] Comment on above: Performed By: #### B MP ####[facility] [address] [place] [id number]. Swapna Severino Creatinine [Mass/Vol] 0.55 mg/dL Normal 0.55-1.02 [facility] Comment on above: Performed By: #### B MP ####[facility] [address] [place] [id number]. Swapna Severino EGFR-AF SAUDI ARABIAN >60 Normal >=60 [facility] Comment on above: Performed By: #### B MP ####[facility] [address] [place] [id number]. Swapna Severino EGFR-NON AF SAUDI ARABIAN >60 Normal >=60 [facility] Comment on above: Performed By: #### B MP ####[facility] [address] [place] [address]Dr. Swapna Severino Glucose [Mass/Vol] 79 mg/dL Normal 74-106 [facility] Comment on above: Performed By: #### B MP ####[facility] [address] [place] [address]Dr. Swapna Severino Potassium [Moles/Vol] 4.3 mmol/L Normal 3.5-5.1 [facility] Comment on above: Performed By: #### B MP ####[facility] [address] [place] [address]Dr. Swapna Severino Sodium [Moles/Vol] 139 mmol/L Normal 136-145 [facility] Comment on above: Performed By: #### B MP ####[facility] [address] [place] [address]Dr. Swapna Severino Urea nitrogen [Mass/Vol] 8.0 mg/dL Normal 7.0-18.0 [facility] Comment on above: Performed By: #### B MP ####[facility] [address] [place] [address]Dr. Swapna Severino Urea nitrogen/Creatinine [Mass ratio] 14.5 mg/mg Normal [facility] Comment on above: Performed By: #### B MP ####[facility] [address] [place] [address]Dr. Swapna Severino US PELVIS TRANSVAGon 022 US [...] by: KRISTEN HOFFMANN Date: 2022-06-11 12:44 Normal [facility] US PELVIS AND TRANSVAGon US PELVIS AND [...] authenticated by: KRISTEN HOFFMANN Date: 2022-05-11 14:02 Normal [facility] PAP ACOG PANEL 2: 21 to 29on 03-12-2022 . . Normal [facility] Comment on above: Performed By: #### 4 [id number] #### [facility] [address] [place] [address] Dr. Swapna Severino Age Gdln ACOG Testing [facility] Comment on above: Performed By: #### 4 [id number] #### [facility] [address] [place] [address] Dr. Swapna Severino DIAGNOSIS: Comment [facility] Comment on above: Result Comment: NEGA TIVE FOR INTRAEPITHELIAL LESION OR MALIGNANCY. Performed By: #### 4 [id number] #### [facility] [address] [place] [address] Dr. Swapna Severino Methodology: Comment [facility] Comment on above: Result Comment: This liquid based ThinPrep(R) pap test was screened with the use of an image guided system. Performed By: #### 4 [id number] #### [facility] [address] [place] [address] Dr. Swapna Severino Note: Comment [facility] Comment on above: Result Comment: The Pap smear is a screening test designed to aid in the detection of premalignant and malignant conditions of the uterine cervix. It is not a diagnostic procedure and should not be used as the sole means of detecting cervical cancer. Both false-positive and false-negative reports do occur. . Performed By: #### 4 [id number] #### [facility] [address] [place] [address] Dr. Swapna Severino Performed by: Comment Normal [facility] Comment on above: Result Comment: Kathy Bland, Electronics Technician (ASCP) Performed By: #### 4 [id number] #### [facility] [address] [place] [address] Dr. Swapna Severino Reflex Criteria: Comment Normal [facility] Comment on above: Result Comment: The HPV DNA reflex criteria were not met with this specimen result therefore, no HPV testing was performed. . Performed By: #### 4 [id number] #### [facility] [address] [place] [address] Dr. Swapna Severino Specimen adequacy: Comment Normal [facility] Comment on above: Result Comment: Sati sfactory for evaluation. Endocervical and/or squamous metaplastic cells (endocervical component) are present. Performed By: #### 4 [id number] #### [facility] [address] [place] [address] Dr. Swapna Severino Covid-19 PCR ([facility])on SARS-CoV-2 (COVID-19) RNA HALLEY+probe Ql (Unsp spec) Detected Critically abnormal NOT DETECTED [facility] Comment on above: Result Comment: This test is not yet approved or cleared by the [place] FDA. When there are no FDA-approved or cleared tests available, and other criteria are met, FDA can make tests available under an emergency access mechanism called an Emergency Use Authorization (EUA). The EUA for this test is supported by the [place] of Health and Human Service's (HHS's) declaration [...] longer be used). Performed By: #### C [facility] #### [facility] [address] [place] [address] Dr. Swapna Severino CBC auto differentialOrdered By: Estuardo Carter on 10-10-2020 [employer] # 0.19 [employer] [facility] Work Phone: Absolute Immature Granulocyte <0.03 [employer] Work Phone: [employer] Lymph # 1.98 [employer] Work Phone: [employer] [place] # 0.45 [employer] [facility] Work Phone: Basophils (Bld) [#/Vol] 0.03 10*3/uL [employer] Phone: Basophils/100 WBC (Bld) 1 % 0 - 2 % [facility] Phone: Differential Type NOT REPORTED [employer] Phone: Eosinophils/100 WBC (Bld) 3 % 1 - 4 % [employer] Phone: Hematocrit (Bld) [Volume fraction] 40.1 % 36.3 - 47.1 % [employer] Phone: Hemoglobin.gastrointest inal spec 1 Ql (Stl) 13.8 g/dL 11.9 - 15.1 g/dL [employer] Phone: Immature granulocytes/100 WBC (Bld) 0 % 0 [employer] Phone: Interpretation and review of laboratory results Abnormal [employer] Phone: Lymphocytes/100 WBC (Bld) 32 % 25 - 45 % [employer] Phone: MCH (RBC) [Entitic mass] 31.4 pg 25.2 - 33.5 pg [employer] Phone: MCHC (RBC) [Mass/Vol] 34.4 g/dL 28.4 - 34.8 g/dL [employer] Phone: MCV (RBC) [Entitic vol] 91.1 fL 82.6 - 102.9 fL [employer] Phone: Monocytes/100 WBC (Bld) 7 % 2 - 8 % M [facility] [employer] Work Phone: NRBC Automated 0.0 0.0 per 100 WBC [employer] Phone: Platelet distribution width (Bld) [Ratio] 11.4 % Low 11.8 - 14.4 % [employer] Phone: Platelet Estimate NOT REPORTED [employer] Phone: Platelet mean volume (Bld) [Entitic vol] 8.4 fL 8.1 - 13.5 fL [employer] Phone: Platelets (Bld) [#/Vol] 365 10*3/uL [employer] Phone: RBC (Bld) [#/Vol] 4.40 10*6/uL 3.95 - 5.1 1 m/uL [employer] Work Phone: RBC (Bld) [#/Vol] NOT REPORTED [employer] Work Phone: Segmented neutrophils/100 WBC (Bld) 57 % 34 - 64 % [employer] Work Phone: Segs Absolute 3.56 [employer] Work Phone: WBC (Bld) [#/Vol] 6.2 10*3/uL [employer] Work Phone: WBC (Bld) [#/Vol] NOT REPORTED [employer] Work Phone: CBC with Diffon 10-10-2020 Abs. Basophil 0.03 k/uL Normal 0.00-0.20 [facility] Comment on above: Performed By: #### S ED, CDP, CP, HCG #### [address] [place], [place] [address] Health Care Attorney: Kristen Howe MD Abs.Imm.Granulocyte <0.03 Normal 0.00-0.30 [facility] Comment on above: Performed By: #### S ED, CDP, CP, HCG #### [address] [place], [place] [address] Health Care Attorney: Kristen Howe MD Abs.Neutrophil (Seg) 3.56 k/uL Normal 1.80-8.00 [facility] Comment on above: Performed By: #### S ED, CDP, CP, HCG #### [address] [place], [place] [address] Health Care Attorney: Kristen Howe MD Basophils/100 WBC (Bld) 1 % Normal 0-2 [facility] Comment on above: Performed By: #### S ED, CDP, CP, HCG #### [address] [place], [place] [address] Health Care Attorney: Kristen Howe MD Eosinophils (Bld) [#/Vol] 0.19 10*3/uL Normal 0.00-0.44 [facility] Comment on above: Performed By: #### S ED, CDP, CP, HCG #### [address] [place], [place] [address] Health Care Attorney: Kristen Howe MD Eosinophils/100 WBC (Bld) 3 % Normal 1-4 [facility] Comment on above: Performed By: #### S ED, CDP, CP, HCG #### [address] [place], [place] [address] Health Care Attorney: Kristen Howe MD Erythrocyte distribution width (RBC) [Ratio] 11.4 % Low 11.8-14.4 [facility] Comment on above: Performed By: #### S ED, CDP, CP, HCG #### [address] [place], [facility] Health Care Attorney: Kristen Howe MD Hematocrit (Bld) [Volume fraction] 40.1 % Normal 36.3-47.1 [facility] Comment on above: Performed By: #### S ED, CDP, CP, HCG #### [address] [place] [id number] Health Care Attorney: Kristen Howe MD Hemoglobin (Bld) [Mass/Vol] 13.8 g/dL Normal 11.9-15.1 [facility] Comment on above: Performed By: #### S ED, CDP, CP, HCG #### [address] [place] [id number] Health Care Attorney: Kristen Howe MD Immature granulocytes/100 WBC (Bld) 0 % Normal 0 [facility] Comment on above: Performed By: #### S ED, CDP, CP, HCG #### [address] [place], [facility] Health Care Attorney: Kristen Howe MD Lymphocytes (Bld) [#/Vol] 1.98 10*3/uL Normal 1.20-5.20 [facility] Comment on above: Performed By: #### S ED, CDP, CP, HCG #### [address] [place], [place] [address] Health Care Attorney: Kristen Howe MD Lymphocytes/100 WBC (Bld) 32 % Normal 25-45 [facility] Comment on above: Performed By: #### S ED, CDP, CP, HCG #### [address] [place] [id number] Health Care Attorney: Kristen Howe MD MCH (RBC) [Entitic mass] 31.4 pg Normal 25.2-33.5 [facility] Comment on above: Performed By: #### S ED, CDP, CP, HCG #### [address] [place] [id number] Health Care Attorney: Kristen Howe MD MCHC (RBC) [Mass/Vol] 34.4 g/dL Normal 28.4-34.8 [facility] Comment on above: Performed By: #### S ED, CDP, CP, HCG #### [facility] [address] [place] [address] Health Care Attorney: Kristen Howe MD MCV (RBC) [Entitic vol] 91.1 fL Normal 82.6-102.9 [facility] Comment on above: Performed By: #### S ED, CDP, CP, HCG #### [address] [place] [facility] Health Care Attorney: Kristen Howe MD Monocytes (Bld) [#/Vol] 0.45 10*3/uL Normal 0.10-1.40 [facility] Comment on above: Performed By: #### S ED, CDP, CP, HCG #### [facility] [address] [place] [address] Dr. [place], [facility] Health Care Attorney: Kristen Howe MD Monocytes/100 WBC (Bld) 7 % Normal 2-8 [facility] Comment on above: Performed By: #### S ED, CDP, CP, HCG #### [address] [place], [place] [id number] Health Care Attorney: Kristen Howe MD Neutrophil (Seg) 57 % Normal 34-64 [facility] Comment on above: Performed By: #### S ED, CDP, CP, HCG #### [facility] [address] [place] [id number] Health Care Attorney: Kristen Howe MD NRBC Automated 0.0 per 100 WBC Normal 0.0 [facility] Comment on above: Performed By: #### S ED, CDP, CP, HCG #### [facility] [address] [place] [address] Dr. [place] [facility] Health Care Attorney: Kristen Howe MD Platelet mean volume (Bld) [Entitic vol] 8.4 fL Normal 8.1-13.5 [facility] Comment on above: Performed By: #### S ED, CDP, CP, HCG #### [facility] [address] [place] [address] Health Care Attorney: Kristen Howe MD Platelets (Bld) [#/Vol] 365 10*3/uL Normal 138-453 [facility] Comment on above: Performed By: #### S ED, CDP, CP, HCG #### [facility] [address] [place] [address] Health Care Attorney: Kristen Howe MD RBC (Bld) [#/Vol] 4.40 10*6/uL Normal 3.95-5.11 [facility] Comment on above: Performed By: #### S ED, CDP, CP, HCG #### [facility] [address] [place], [place] [id number] Health Care Attorney: Kristen Howe MD WBC (Bld) [#/Vol] 6.2 10*3/uL Normal 4.5-13.5 [facility] Comment on above: Performed By: #### S ED, CDP, CP, HCG #### [facility] [address] [place], [place] [id number] Health Care Attorney: Kristen Howe MD Auto Diff Performed NOT REPORTED Normal [facility] Comment on above: Performed By: #### S ED, CDP, CP, HCG #### [facility] [address] [place], [place] [id number] Health Care Attorney: Kristen Howe MD Platelet Estimate NOT REPORTED Normal [facility] Comment on above: Performed By: #### S ED, CDP, CP, HCG #### [facility] [address] [place], [place] [phone] Health Care Attorney: Kristen Howe MD RBC morphology finding Nom (Bld) NOT REPORTED Normal [facility] Comment on above: Performed By: #### S ED, CDP, CP, HCG #### [facility] [address] [place] [address] Health Care Attorney: Kristen Howe MD WBC Morphology NOT REPORTED Normal [facility] Comment on above: Performed By: #### S ED, CDP, CP, HCG #### [facility] [address] [place] [address] Health Care Attorney: Kristen Howe MD CT ABDOMEN PELVIS W [...] Charles Virgen MD 10/10/20 Final result Normal [facility] CT ABDOMEN PELVIS W IV CONTR AST Additional Contrast? 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 This results in compressive affects on the right ureter and mild hydronephrosis. Follow-up with gynecology is recommended due to the large size of this mass and associated compressive affects. [employer] Phone: EXAMINATION: CT OF THE ABDOMEN AND [...] No lymphadenopathy. Bones/Soft Tissues: No abnormality identified. [facility] Work Phone: Eriberto, Mhpn Incoming Radiant Results From [employer] - 10/10/2020 3:13 PM EDT EXAMINATION: CT [...] of this mass and associated compressive affects. [employer] Phone: Comp Metabolic Profon 2020 (cont.) Normal [facility] Comment on above: Result Comment: Aver age GFR for 20-29 years old: 116 mL/min/1.73sq m Chronic Kidney Disease: <60 mL/min/1.73sq m Kidney failure: <15 mL/min/1.73sq m eGFR calculated using average adult body mass. Additional eGFR calculator available at: http://www.[employer]/multiple_crcl_2012.htm Performed By: #### S ED, CDP, CP, HCG #### [facility] [address] [place] [address] Dr. [place], [place] [id number] Health Care Attorney: Kristen Howe MD Albumin [Mass/Vol] 4.5 g/dL Normal 3.5-5.2 [facility] Comment on above: Performed By: #### S ED, CDP, CP, HCG #### [address] [place], [place] [id number] Health Care Attorney: Kristen Howe MD Albumin/Glob Ratio 2.0 Normal 1.0-2.5 [facility] Comment on above: Performed By: #### S ED, CDP, CP, HCG #### [facility] [address] [place] [address] Dr. [place], [place] [id number] Health Care Attorney: Kristen Howe MD Alkaline Phos 62 U/L Normal 35-104 [facility] Comment on above: Performed By: #### S ED, CDP, CP, HCG #### [address] [place] [address] Health Care Attorney: Kristen Howe MD ALT [Catalytic activity/Vol] 9 U/L Normal 5-33 [facility] Comment on above: Performed By: #### S ED, CDP, CP, HCG #### [facility] [address] [place], [place] [phone] Health Care Attorney: Kristen Howe MD Anion gap [Moles/Vol] 7 mmol/L Low 9-17 [facility] Comment on above: Performed By: #### S ED, CDP, CP, HCG #### [facility] [address] [place] [address] Dr. [place], [place] [id number] Health Care Attorney: Kristen Howe MD AST [Catalytic activity/Vol] 16 U/L Normal <32 [facility] Comment on above: Performed By: #### S ED, CDP, CP, HCG #### [facility] [address] [place], [place] [phone] Health Care Attorney: Kristen Howe MD Bilirubin [Mass/Vol] 0.52 mg/dL Normal 0.3-1.2 [facility] Comment on above: Performed By: #### S ED, CDP, CP, HCG #### [facility] [address] [place], [place] [phone] Health Care Attorney: Kristen Howe MD BUN/CRE Ratio 13 Normal 9-20 [facility] Comment on above: Performed By: #### S ED, CDP, CP, HCG #### [facility] [address] [place], [place] [address]83 Health Care Attorney: Kristen Howe MD Calcium [Mass/Vol] 9.8 mg/dL Normal 8.6-10.4 [facility] Comment on above: Performed By: #### S ED, CDP, CP, HCG #### [facility] [address] [place], [place] [phone] Health Care Attorney: Kristen Howe MD Chloride [Moles/Vol] 102 mmol/L Normal 98-107 [facility] Comment on above: Performed By: #### S ED, CDP, CP, HCG #### [facility] [address] [place], [place] 1526283 Health Care Attorney: Kristen Howe MD CO2 [Moles/Vol] 31 mmol/L Normal 20-31 [facility] Comment on above: Performed By: #### S ED, CDP, CP, HCG #### [facility] [address] [place], [place] [phone] Health Care Attorney: Kristen Howe MD Creatinine [Mass/Vol] 0.64 mg/dL Normal 0.50-0.90 [facility] Comment on above: Performed By: #### S ED, CDP, CP, HCG #### [facility] [address] [place], [place] [phone] Health Care Attorney: Kristen Howe MD GFR, Amer >60 Normal >60 [facility] Comment on above: Performed By: #### S ED, CDP, CP, HCG #### [facility] [address] [place], [place] 689[address]83 Health Care Attorney: Kristen Howe MD GFR,non Amer >60 Normal >60 [facility] Comment on above: Performed By: #### S ED, CDP, CP, HCG #### [facility] [address] [place], [place] 5500383 Health Care Attorney: Kristen Howe MD Glucose [Mass/Vol] 94 mg/dL Normal 70-99 [facility] Comment on above: Performed By: #### S ED, CDP, CP, HCG #### [facility] [address] [place] [address] Dr. [place], [place] [phone] Health Care Attorney: Kristen Howe MD Potassium [Moles/Vol] 3.5 mmol/L Low 3.7-5.3 [facility] Comment on above: Performed By: #### S ED, CDP, CP, HCG #### [facility] [address] [place] [address] Dr. [place], [place] [phone] Health Care Attorney: Kristen Howe MD Protein [Mass/Vol] 6.8 g/dL Normal 6.4-8.3 [facility] Comment on above: Performed By: #### S ED, CDP, CP, HCG #### [facility] [address] [place], [place] [address]383 Health Care Attorney: Kristen Howe MD Sodium [Moles/Vol] 140 mmol/L Normal 135-144 [facility] Comment on above: Performed By: #### S ED, CDP, CP, HCG #### [facility] [address] [place] [address] Health Care Attorney: Kristen Howe MD Staging: Normal [facility] Comment on above: Result Comment: Stag e 1: Some kidney damage normal GFR Stage 2: Mild kidney damage GFR 60-89 Stage 3: Moderate kidney damage GFR 30-59 Stage 4: Severe kidney damage GFR 15-29 Stage 5: Severe kidney damage GFR <15 ESRD - chronic treatment by dialysis or transplant Performed By: #### S ED, CDP, CP, HCG #### [facility] [address] [place] [address] Health Care Attorney: Kristen Howe MD Urea nitrogen [Mass/Vol] 8 mg/dL Normal 6-20 [facility] Comment on above: Performed By: #### S ED, CDP, CP, HCG #### [facility] [address] [place] [address] Health Care Attorney: Kristen Howe MD Comprehensive Metabolic Pane lOrdered By: Estuardo Carter on 10-10-2020 Albumin [Mass/Vol] 4.5 g/dL 3.5 - 5.2 g/dL [employer] Phone: Albumin/Globulin [Mass ratio] 2.0 {ratio} [employer] Phone: ALP (Bld) [Catalytic activity/Vol] 62 U/L 35 - 104 U/L [employer] Phone: ALT [Catalytic activity/Vol] 9 U/L 5 - 33 U/L [employer] Phone: Anion gap [Moles/Vol] 7 mmol/L Low 9 - 17 mmol/L [employer] Phone: AST [Catalytic activity/Vol] 16 U/L <32 [employer] Phone: Bilirubin [Mass/Vol] 0.52 mg/dL 0.3 - 1 .2 mg/dL [employer] Phone: Calcium [Mass/Vol] 9.8 mg/dL 8.6 - 10. 4 mg/dL [employer] Phone: Chloride [Moles/Vol] 102 mmol/L 98 - 10 7 mmol/L [employer] Phone: CO2 [Moles/Vol] 31 mmol/L 20 - 31 mmol/L [employer] Phone: Creatinine [Mass/Vol] 0.64 mg/dL 0.50 - 0.90 mg/dL [employer] Phone: Free PSA/Total PSA [Mass fraction] 6.8 g/dL 6.4 - 8.3 g/dL [employer] Phone: GFR >60 >60 mL/min [employer] Phone: GFR Non- >60 >60 mL/min [employer] Phone: Glucose [Mass/Vol] 94 mg/dL 70 - 99 mg/dL [employer] Phone: Interpretation and review of laboratory results Abnormal [employer] Phone: Potassium [Moles/Vol] 3.5 mmol/L Low 3.7 - 5.3 mmol/L [employer] Phone: Sodium [Moles/Vol] 140 mmol/L 135 - 144 mmol/L [employer] Phone: Urea nitrogen (BldV) [Mass/Vol] 8 mg/dL 6 - 20 mg/dL [employer] Phone: Urea nitrogen/Creatinine (Bld) [Mass ratio] 13 [employer] Phone: HCG Qualitative, SerumOrdere d By: Estuardo Carter on 10-10-2020 hCG Qual Negative NEGATIVE [employer] Phone: Comment on above: Specimens with hCG l evels near the threshold of the test (25 mIU/mL) may give a negative or indeterminate result. In such cases, another test should be performed with a new specimen in 48-72 hours. If early is suspected clinically in this setting, correlation with quantitative serum b-hCG level is suggested. [facility] has confirmed the use of plasma for this test. This has not been cleared or approved by the U.S. Food and Drug Administration. The FDA has determined that such clearance is not necessary. HCG Screen, Bloodon 10-11-19 21 HCG Screen, Blood Negative Normal NEG [facility] Comment on above: Result Comment: Spec imens with hCG levels near the threshold of the test (25 mIU/mL) may give a negative or indeterminate result. In such cases, another test should be performed with a new specimen in 48-72 hours. If early is suspected clinically in this setting, correlation with quantitative serum b-hCG level is suggested. [facility] has confirmed the use of plasma for this test. This has not been cleared or approved by the U.S. Food and Drug Administration. The FDA has determined that such clearance is not necessary. Performed By: #### S ED, CDP, CP, HCG #### [facility] [address] [place] [address] Health Care Attorney: Kristen Howe MD Laboratory - Chemistry and C hemistry - challengeOrdered By: Estuardo Carter on 10-10-2020 GFR/1.73 sq M.predicted MDRD (S/P/Bld) [Vol rate/Area] [facility] Work Phone: Comment on above: Average GFR for 20-2 9 years old: 116 mL/min/1.73sq m Chronic Kidney Disease: <60 mL/min/1.73sq m Kidney failure: <15 mL/min/1.73sq m eGFR calculated using average adult body mass. Additional eGFR calculator available at: http://www.[employer]/multiple_crcl_2012.htm Stage 1: Some kidney damage normal GFR Stage 2: Mild kidney damage GFR 60-89 Stage 3: Moderate kidney damage GFR 30-59 Stage 4: Severe kidney damage GFR 15-29 Stage 5: Severe kidney damage GFR <15 ESRD - chronic treatment by dialysis or transplant Microscopic UrinalysisOrdere d By: Estuardo Carter on 10-10-2020 - [facility] Work Phone: Amorphous, UA NOT REPORTED None [facility] Work Phone: Bacteria, UA NOT REPORTED None [facility] Work Phone: Casts UA NOT REPORTED /LPF [facility] Work Phone: Crystals, UA NOT REPORTED None /HPF [facility] Work Phone: Epithelial Cells UA 0 TO 2 [facility] Work Phone: Mucus, UA NOT REPORTED None [facility] Work Phone: Other Observations UA NOT REPORTED NOT REQ. M [facility] Work Phone: RBC, UA 20 TO 50 [facility] Work Phone: Renal Epithelial, UA NOT REPORTED 0 /HPF Me [facility] Work Phone: Trichomonas, UA NOT REPORTED None [facility] Work Phone: WBC, UA 0 TO 2 [facility] Work Phone: Yeast, UA NOT REPORTED None [facility] Work Phone: Sedimentation Rateon 021 Sedimentation Rate 3 mm Normal 0-20 [facility] Comment on above: Performed By: #### S ED, CDP, CP, HCG #### [facility] [address] [place] [address] Health Care Attorney: Kristen Howe MD Sedimentation RateOrdered By : Estuardo Carter on 10-10-2020 Sed Rate 3 mm 0 - 20 mm [facility] Work Phone: Surgical Pathologyon 021 Surgical Pathology (NOTE) -- Diagnosis -- RIGHT OVARY, OOPHORECTOMY:- BENIGN DERMOID CYST (MATURE CYSTIC TERATOMA), MULTIPLE PIECES.- SEE MICROSCOPIC DESCRIPTION. Greyson Alan, Electronically Signed Out sls/10/14/2020 Clinical Information Pre-op Diagnosis: DERMOID CYST Operative [...] lining, is a 0.5 cm papillary focus. Manager Front Office sections 4cs with papillary focus included in [...] SURGICAL PATHOLOGY CONSULTATION Patient Name: FADIA [address] [facility] Rec: [id number] Path Number: [id number] [facility] ANATOMIC PATHOLOGY [address] [place] [address]. [place], [place] [address] Normal [facility] Comment on above: Performed By: #### P PPVS #### [facility] [address] [place] [address] Health Care Attorney: Ottoniel Hyde MD UA w/Reflex Cultureon 2020 Acetoacetic Acid,Ur Negative Normal NEG [facility] Comment on above: Performed By: #### U NATAN EDUARDOX #### [facility] [address] [place] [address] Health Care Attorney: Kristen Howe MD Bilirubin, SemiQt,Ur Negative Normal NEG [facility] Comment on above: Performed By: #### U ALESHA UAX #### [facility] [address] [place], [place] [phone] Health Care Attorney: Kristen Howe MD Color (U) YELLOW Normal YEL [facility] Comment on above: Performed By: #### U MICAO, UAX #### [facility] [address] [place], [place] [phone] Health Care Attorney: Kristen Howe MD Glucose Ql (U) Negative Normal NEG [facility] Comment on above: Performed By: #### U MICAO, UAX #### [address] [place] [id number] Health Care Attorney: Kristen Howe MD Hemoglobin, Ur 3+ Abnormal NEG [facility] Comment on above: Performed By: #### U MICAO, UAX #### [facility] [address] [place] [address] Dr. [place], [facility] Health Care Attorney: Kristen Howe MD Leukocyte esterase Test strip Ql (U) Negative Normal NEG [facility] Comment on above: Performed By: #### U MICAO, UAX #### [address] [place], [facility] Health Care Attorney: Kristen Howe MD Nitrite,Ur Negative Normal NEG [facility] Comment on above: Performed By: #### U MICAO, UAX #### [facility] [address] [place], [facility] Health Care Attorney: Kristen Howe MD PH,Ur 6.0 Normal 5.0-9.0 [facility] Comment on above: Performed By: #### U MICAO, UAX #### [address] [place], [place] [phone] Health Care Attorney: Kristen Howe MD Protein Ql (U) TRACE Abnormal NEG [facility] Comment on above: Performed By: #### U MICAO, UAX #### [facility] [address] [place], [place] [address]83 Health Care Attorney: Kristen Howe MD Spec. Vaughan,Ur 1.025 High 1.010-1.020 [facility] Comment on above: Performed By: #### U MICAO, UAX #### [facility] [address] [place], [place] [address]83 Health Care Attorney: Kristen Howe MD Turbidity CLEAR Normal CLEAR [facility] Comment on above: Performed By: #### U MICAO, UAX #### [facility] [address] [place], [place] [phone] Health Care Attorney: Kristen Howe MD Urobilinogen,Ur Normal Normal NORM [facility] Comment on above: Performed By: #### U MICAO, UAX #### [facility] [address] [place], [place] [id number] Health Care Attorney: Kristen Howe MD Comment NOT REPORTED Normal [facility] Comment on above: Performed By: #### U MICAO, UAX #### [facility] [address] [place], [place] [id number] Health Care Attorney: Kristen Howe MD Urinalysis Reflex to Culture Ordered By: Estuardo Carter on 10-10-2020 Bilirubin Urine Negative NEGATIVE [facility] Work Phone: Color, UA YELLOW YELLOW [facility] Work Phone: Glucose, Ur Negative NEGATIVE [facility] Work Phone: Interpretation and review of laboratory results Abnormal [facility] Work Phone: Ketones Ql (U) Negative NEGATIVE [facility] Work Phone: Leukocyte esterase Test strip Ql (U) Negative NEGATIVE [facility] Work Phone: Nitrite, Urine Negative NEGATIVE [facility] Work Phone: pH, UA 6.0 [facility] Phone: Protein, UA TRACE Abnormal NEGATIVE [facility] [employer] Phone: Specific Vaughan, UA 1.025 High [facility] [employer] Phone: Turbidity UA CLEAR CLEAR [facility] Phone: Urinalysis Comments NOT REPORTED [facility] Work Phone: Urine Hgb 3+ Abnormal NEGATIVE [facility] [employer] Phone: Urobilinogen, Urine Normal Normal [facility] [employer] Phone: Urinalysis,Microon 1 ----- Normal [facility] Comment on above: Performed By: #### U MICAO, UAX #### [facility] [address] [address] Health Care Attorney: Kristen Howe MD Epithelial cells LM Ql (Urine sed) 0 TO 2 Normal 0-25 [facility] Comment on above: Performed By: #### U MICAO, UAX #### [facility] [address] [place] [id number] Health Care Attorney: Kristen Howe MD Urine RBC's 20 TO 50 Normal 0-2 [facility] Comment on above: Performed By: #### U MICAO, UAX #### [facility] [address] [place] [address] Health Care Attorney: Kristen Howe MD Urine WBC's 0 TO 2 Normal 0-5 [facility] Comment on above: Performed By: #### U MICAO, UAX #### [facility] [address] [place] [address] Health Care Attorney: Kristen Howe MD Amorphous sediment LM Ql (Urine sed) NOT REPORTED Normal NONE [facility] Comment on above: Performed By: #### U MICAO, UAX #### [facility] [address] [place] [address] Health Care Attorney: Kristen Howe MD Bacteria NOT REPORTED Normal NONE [facility] Comment on above: Performed By: #### U MICAO, UAX #### [facility] [address] [place] [address] Health Care Attorney: Kristen Howe MD Casts NOT REPORTED Normal [facility] Comment on above: Performed By: #### U MICAO, UAX #### [facility] [address] [place] [address] Health Care Attorney: Kristen Howe MD Crystals LM Nom (Urine sed) NOT REPORTED Normal NONE [facility] Comment on above: Performed By: #### U MICAO, UAX #### [facility] [address] [place] [address] Health Care Attorney: Kristen Howe MD Epithelial, Renal NOT REPORTED Normal 0 [facility] Comment on above: Performed By: #### U MICAO, UAX #### [facility] [address] [place] [address] Health Care Attorney: Kristen Howe MD Mucus Strands NOT REPORTED Normal [facility] Comment on above: Performed By: #### U MICAO, UAX #### [facility] [address] [place] [address] Health Care Attorney: Kristen Howe MD Other Observations NOT REPORTED Normal NREQ [facility] Comment on above: Performed By: #### U MICAO, UAX #### [facility] [address] [place] [address] Health Care Attorney: Kristen Howe MD Trichomonas NOT REPORTED Normal NONE [facility] Comment on above: Performed By: #### U MICAO, UAX #### [facility] [address] [place], [place] [id number] Health Care Attorney: Kristen Howe MD Yeast NOT REPORTED Normal NONE [facility] Comment on above: Performed By: #### U MICAO, UAX #### [facility] [address] [place] [address] Health Care Attorney: MD Jeanie Mahoney 06-29-2019 CNCO Letter Text Normal [facility] CNOVon 06-29-2019 CNOV Office Visit (SYNCMN ) FADIA LAN ([id number]) 1 F Date Time Provider Department 06/29/19 2:45 PM CELESTE WEISS SYNCMN During your visit today, we recorded the following information about you: Weight Height 53.3 kg 1.676 m Celeste Weiss Jr, DO, DO 07/06/2019 8:58 AM Signed [facility] [place] [facility] Department of Cardiovascular Medicine SECTION OF CARDIAC PACING and ELECTROPHYSIOLOGY OUTPATIENT VISIT DATE June 29, 2019 OUTPATIENT VISIT TYPE NEW PRIMARY CARE PHYSICIAN: Danilo Dinero MD [address] [place] [address] REFERRING PHYSICIAN: Danilo Dinero MD [address] [place] [address] . NURSING INTAKE HISTORY: Fadia Lan is [...] extensive local evaluation including assessment at the [facility] electrophysiology autonomic laboratory by Dr. pierson, tilt table testing, multiple drug trials, but continues to have events. My findings, recommendations, and plan of care will be added to the electronic medical record and forwarded to the [facility] physicians by [employer] and to the patient and the local [...] the medical intensive care unit of the [facility]. She underwent extensive evaluation including repeat [...] reduction. 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 with autonomic neurology group who ordered [...] in the records provided, but Dr. Love CMS EXPERT states that there was a borderline increase [...] signs. EKG reveals normal sinus rhythm, normal NC and QRS intervals, no evidence of long [...] suggestions. This note was partially generated using [facility] voice recognition system, and there may be some incorrect words, spellings, and punctuation that were not noted in checking the note before saving. Homer Weiss DO CC: Shanae Weeks [phone] (Work) [address] [place] [phone] Nurse Practitioner León [facility] [address] [place] [phone] henri Prettyg [facility] Referring Provider: DANILO DINERO [[id number]] Allergies As of Date: 06/29/2019 (No Known Allergies) Date Reviewed: 06/29/2019 Reviewed by: Celeste Weiss DO - Fully Assessed Primary Visit Diagnosis:Syncope and collapse [R55] Other Visit Diagnoses:Near syncope [R55] Chest pain, unspecified type [R07.9] Orthostatic lightheadedness [R42] Order(s):OUTSIDE VENDOR CARDIAC OUTPATIENT TELEMETRY [[id number]] Order #: [id number]: 1 EPIL EEG LONG [[id number]] Order #: [id number]: 1 FUTURE Prescriptions as of 06/29/2019 Sig: [...] by CELESTE WEISS DO on 07/06/19 Normal [facility] CNOV Office Visit (NE50MN ) FADIA LAN ([id number]) 1 F Date Time Provider Department 06/29/19 11:00 AM OUSMANE GAMBOA NE50MN During your visit today, we recorded the following information about you: Pulse Blood pressure Weight 76/minute 96/60 54.9 kg Ousmane Gamboa MD PhD 07/11/2019 2:46 PM Signed .[facility] Patient Name: Fadia Lan Date [...] but she was caught by a police worker, she has LOC of unknown duration. 30 mins later, mother came to school, the patient was confused, slurred speech, she looked pale. She was admitted to a local hospital, some elevation of troponin. One week later, she had a similar episodes at school, she had SOB, hands trembling, she thought she was hungary, she went to [employer], she started to drove home, somehow, she [...] 3 day-EEG on 05/18/2019 after she left [facility]. She had a mild spells recorded on [...] She was diagnosed of having POTs in [place] in Mar. Psychosocial: No depression, no anxiety. 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 Prior work-up includes [...] high school and quit her job at [employer] due to episodes. ? Impression/Recommenda tions This [...] with prolonged EEG monitoring. 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 [...] Ousmane Gamboa MD PhD Staff, [facility] [place], [place] cc: Primary Care Physician: Danilo Dinero MD [address] [facility] [address] Referring Physician: SELF Ms. Fadia Lan [address] [facility] [address] Referring Provider: SELF [[id number]] Allergies As of Date: 06/29/2019 (No Known Allergies) Date Reviewed: 06/29/2019 Reviewed by: Celeste Weiss DO - Fully Assessed Reason for Visit: New [...] BEE LYNCH, OUSMANE PHD on 07/11/19 Normal [facility] ECG COMPLETEon 06-29-2019 ECG COMPLETE NAME : FADIA LAN PID : [id number] : 2000 Gender : Female Race : ORD : [id number] Procedure Date : Jun 29 2019 13:19:31 Edit Date : Jul 02 2019 13:58:19 Diagnosis:NORMAL SINUS RHYTHM NORMAL ECG Confirmed by OLIVIER RUBIO M.D. ([id number]) on 07/02/2019 1:55:40 PM Ventricular Rate : 75 BPM Atrial Rate : 75 BPM P-R Interval : 140 ms QRS Duration : 94 ms Q-T Interval : 392 ms QTC Calculation(Bazett) : 437 ms P [place] : 65 degrees R [place] : 62 degrees T [place] : 35 degrees Test Reason : Location : 314 : J14 Overread By : OLIVIER RUBIO M.D. Edited By : OLIVIER RUBIO M.D. Referred By : CELESTE WEISS Acquired by : KEVIN MANRIQUE [facility] OBSOLETEon 06-29-2019 OBSOLETE Procedure (NEAU) FADIA LAN ([id number]) 1 F Date Time Provider Department 06/29/19 [...] Status:Closed by MARIA R GARCIA DO on 1/17/20 Normal [facility] PROCEDUREon 06-29-2019 PROCEDURE HNO ID: [id number] Author: Celeste Weiss DO Service: ? Author [...] automatic events showing sinus tachycardia. Celeste Weiss Jr DO [facility] Name: FADIA LAN : 2000 Ordering provider: CELESTE WEISS Indication: R55 Syncope and collapse Type of monitor: Continuous Telemetry Enrollment dates: 07/11/2019 - 07/31/2019 Normal [facility] PROGRESSon 06-29-2019 PROGRESS HNO ID: [id number] Author: Celeste Weiss DO Service: ? Author Type: Physician Type: Progress Notes Filed: 07/06/2019 8:58 AM Note Text: [facility] Department of Cardiovascular Medicine SECTION OF CARDIAC PACING and ELECTROPHYSIOLOGY OUTPATIENT VISIT DATE June 29, 2019 OUTPATIENT VISIT TYPE NEW PRIMARY CARE PHYSICIAN: Danilo Dinero MD [address] [place] [address] REFERRING PHYSICIAN: Danilo Dinero MD [address] [place] [address] . NURSING INTAKE HISTORY: Fadia Lan is [...] extensive local evaluation including assessment at the [facility] electrophysiology autonomic laboratory by Dr. pierson, tilt table testing, multiple drug trials, but continues to have events. My findings, recommendations, and plan of care will be added to the electronic medical record and forwarded to the [facility] physicians by [employer] and to the patient and the local [...] the medical intensive care unit of the [facility]. She underwent extensive evaluation including repeat [...] reduction. 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 with autonomic neurology group who ordered [...] in the records provided, but Dr. Love CMS EXPERT states that there was a borderline increase [...] signs. EKG reveals normal sinus rhythm, normal NC and QRS intervals, no evidence of long [...] suggestions. This note was partially generated using [facility] voice recognition system, and there may be some incorrect words, spellings, and punctuation that were not noted in checking the note before saving. Homer Weiss DO CC: Shanae Weeks [phone] (Work) [address] [place] [phone] Nurse Practitioner León [facility] [address] [place] [phone] henri Gamboa Neurology [facility] laura garcia [facility] PROGRESS HNO ID: [id number] Author: Ousmane Gamboa Service: ? Author Type: Physician Type: Progress Notes Filed: 07/11/2019 2:46 PM Note Text: .[facility] Patient Name: Fadia Lan Date [...] but she was caught by a police worker, she has LOC of unknown duration. 30 mins later, mother came to school, the patient was confused, slurred speech, she looked pale. She was admitted to a local hospital, some elevation of troponin. One week later, she had a similar episodes at school, she had SOB, hands trembling, she thought she was hungary, she went to [employer], she started to drove home, somehow, she [...] 3 day-EEG on 05/18/2019 after she left [facility]. She had a mild spells recorded on [...] She was diagnosed of having POTs in [place] in Mar. Psychosocial: No depression, no anxiety. 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 Prior work-up includes [...] years ago after head injury while playing [email or web address] ball. She denied smoking, drinking alcohol, and drug use. She is currently having problems with insomnia. She denied significant stress. She has had to stay home from high school and quit her job at [employer] due to episodes. ? Impression/Recommenda tions This [...] with prolonged EEG monitoring. 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 [...] Gamboa MD PhD Staff, [facility] [place], [place] cc: Primary Care Physician: Danilo Dinero MD [address] [id number] Referring Physician: SELF Ms. Loaiza Saatarun [address] [place] [id number] [facility] CNOVon 06-15-2019 CNOV Office Visit (SYNCMN ) FADIA LAN ([id number]) 1 F Date Time Provider Department 06/15/19 9:00 AM HEMODYNAMIC LAB SYNCMN During your visit today, we recorded the following information about you: HE Garcia, Debbie 06/28/2019 7:35 AM Signed UNIVERSAL PROTOCOL / [...] Comfort Measures: Added pillow under knees and Lewellen Pacemaker: No Other Blood work:None Hemodynamic Tests: Dinamap: Standard Cuff on left Arm Cardiac outputs with Tc 99m via 22 ga angio in right median antecubital. Cold PYP 1.5 ml at 10:06 by DC. Baseline:Trivial SA; NC 140 ms #1: Supine 4.0 mCi at 10:37 by KB BP: 93/57; HR: 65 Moderate SA #2: Supine 8.1 mCi at 10:50 by KB BP: 98/59; HR: 65 Moderate SA #3: HUP60d L-DN 11.8 mCi at 11:07 by KB BP:104/65; HR: 81Mild SA Signature: HOMER Garcia, HE Ejection Fraction - [place]: BP: 98/54, HR: 66, MGAQ-HR: 69 Mild SA Note: Test completed uneventfully. KB. IV discontinued at 11:40 by SAIDA. [employer] card received: yes. Staff involved in procedure: HOMER Garcia, HE; Shameka Gray, RN, Parris Mario,[facility] [[email or web address]] Procedure Finish Time: 11:40 Referring Provider: FLAVIO TRAN ([facility]) [[id number]] Allergies As of Date: 06/15/2019 (No Known Allergies) Date Reviewed: 06/04/2019 Reviewed by: Flavio ([facility]) Melissa - Fully Assessed Primary Visit Diagnosis:Syncope, unspecified syncope type [R55] Other Visit Diagnoses:Syncope and collapse [R55] Near syncope [R55] Chest pain, unspecified type [R07.9] Orthostatic dizziness [R42] Orthostatic lightheadedness [R42] Encounter for examination of blood pressure without abnormal findings [Z01.30] Order(s):HEMODYNAMIC ECHOCARDIOGRAM [[id number]] Order #: [id number]. #:[id number] NCE-DAVPAHHD-EYTGQ-CC FQty: 1 SALINE LOCK DISCONTINUE [5805556] Order #: [id number]: 1 Prescriptions as of 06/15/2019 Sig: POTASSIUM [...] Encounter Status:Closed by BENIGNO TAYLOR on 06/28/19 [facility] PROGRESSon 06-15-2019 PROGRESS HNO ID: [id number] Author: Debbie Chinchilla (Tech) Service: ? Author Type: Ingot Weigher Type: Progress Notes Filed: 06/28/2019 7:35 AM [...] Comfort Measures: Added pillow under knees and [place]ellen Pacemaker: No Other Blood work:None Hemodynamic Tests: Dinamap: Standard Cuff on left Arm Cardiac outputs with Tc 99m via 22 ga angio in right median antecubital. Cold PYP 1.5 ml at 10:06 by DC. Baseline:Trivial SA; NC 140 ms #1: Supine 4.0 mCi at 10:37 by KB BP: 93/57; HR: 65 Moderate SA #2: Supine 8.1 mCi at 10:50 by KB BP: 98/59; HR: 65 Moderate SA #3: HUP60d L-DN 11.8 mCi at 11:07 by KB BP:104/65; HR: 81Mild SA Signature: HOMER Garcia, HE Ejection Fraction - [place]: BP: 98/54, HR: 66, MGAQ-HR: 69 Mild SA Note: Test completed uneventfully. KB. IV discontinued at 11:40 by KB. [employer] card received: yes. Staff involved in procedure: HOMER Garcia, HE; Shameka Gray RN, Parris Mario RDCS Procedure Finish Time: 11:40 Normal [facility] CNOVon 06-04-2019 CNOV Office Visit (NEADMN ) FADIA LAN ([id number]) 1 F Date Time Provider Department 06/04/19 [...] episode, but was caught by a police worker. Her parents came to the school and [...] of tachycardia. She was thus referred to [facility] for workup of POTS. She saw Dr. Mendez's CMS EXPERT Josi. She had a tilt table test [...] to go to her family doctor by [facility]. Her mother states that in April 2019 [...] flat. She had a recent admission to [facility] with EEG monitoring done for 5 [...] 5/5biceps, 5/5 wrist extension, and 5/5 hand tenant relations coordinator. Finger extensor 5/5. Finger flexor 5/5. Pronation [...] of ankles. ? Coordination: Finger-to- nose-finger and ivug-mh-gxdh intact bilaterally. No ataxia of arms. No [...] She had tilt table testing done at [facility] that I do not have record of, [...] with more than 50% of the total sfjn-oy-yjtk time of the visit in counseling / [...] - TILT TABLE EVALUATION Flavio Tran MSN, SALES AND EVENTS COORDINATOR, SAFE DEPOSIT CLERK-C 1. This office note has been dictated [...] Allergies) Date Reviewed: 06/04/2019 Reviewed by: Flavio ([employer]) Melissa - Fully Assessed Reason for Visit: New Patient [172] Primary Visit Diagnosis:Syncope and collapse [R55] Other Visit Diagnoses:Near syncope [R55] Chest pain, unspecified type [R07.9] Orthostatic dizziness [R42] Orthostatic lightheadedness [R42] Disturbance of skin sensation [R20.9] Order(s):ECG COMPLETE [ECG01] Order #: [id number] FUTURE HEMODYNAMIC ECHOCARDIOGRAM [[id number]] Order #: [id number]: 1 FUTURE perflutren lipid microspheres (DEFINITY) 1.1 [...] saline.Disp: 1.3 mLRfl: 0 TILT TABLE EVALUATION [39457XTN] Order #: [id number]: 1 NEURO CARDIO AUTONOMIC REFLEX W/WO TILT [7319856] Order #: [id number] SKIN BIOPSY FOR NEUROPATHY/CNL [7876542] Order #: [id number] CONSULT TO NEUROLOGY [9019] Order #: [id number]: 1 FUTURE HEMODYNAMIC TILT W/IV START [6899940] Order #: [id number]: 1 VITAMIN B12 BLOOD [SQB12] Order #: [id number] FUTURE VITAMIN B1 (THIAMINE), WHOLE BLOOD [SQB1WB] Order #: [id number] FUTURE VITAMIN B6/PYRIDOXIN [SQVITB6] Order #: [id number] FUTURE METHYLMALONIC ACID [SQMMA] Order #: [id number] FUTURE COPPER BLOOD [SQCOPPER] Order #: [id number] FUTURE IMMUNOFIXATION SCREEN, SERUM [SQIFESC] Order #: [id number] FUTURE Prescriptions as of 06/04/2019 Sig: POTASSIUM [...] Status:Closed by FLAVIO TRAN on 06/04/19 Normal [facility] Copperon 06-04-2019 Copper 76 ug/dL Low 85-155 [facility] Comment on above: Result Comment: This test was developed and its performance characteristics determined by [facility]'s [facility] [place] ( [facility]). It has not been cleared or approved by the FDA. [facility] is regulated under CLIA as qualified to perform high complexity testing. This test is used for clinical purposes. It should not be regarded as investigational or for research. Performed By: #### C BC, CMP, MG1, PHOS #### [facility] [address] [address] SONI Screen, Serumon 06-04-20 19 Protein [Mass/Vol] No M protein is identified. Normal No M protein is identified. [facility] Comment on above: Performed By: #### C BC, CMP, MG1, PHOS #### [facility] [address] [address] Staff Review Reviewed by Lyla Hoyos MD. ([id number]) Normal [facility] Comment on above: Performed By: #### C BC, CMP, MG1, PHOS #### [facility] [address] [address] Methylmalonic Acidon 019 Methylmalonic Acid 161 nmol/L Normal 79-376 [facility] Comment on above: Result Comment: This test was developed and its performance characteristics determined by [facility]'s [facility] [place] ([facility]). It has not been cleared or approved by the FDA. [facility] is regulated under CLIA as qualified to perform high complexity testing. This test is used for clinical purposes. It should not be regarded as investigational or for research. Performed By: #### C BC, CMP, MG1, PHOS #### [facility] [address] [place], [place] [address] PROGRESSon 06-04-2019 PROGRESS HNO ID: [id number] Author: Flavio Tran Service: ? Author Type: [...] episode, but was caught by a police worker. Her parents came to the school and [...] of tachycardia. She was thus referred to [facility] for workup of POTS. She saw Dr. Mendez's CMS EXPERT Josi. She had a tilt table test [...] to go to her family doctor by [facility]. Her mother states that in April 2019 [...] flat. She had a recent admission to [facility] with EEG monitoring done for 5 [...] 5/5biceps, 5/5 wrist extension, and 5/5 hand tenant relations coordinator. Finger extensor 5/5. Finger flexor 5/5. Pronation [...] of ankles. ? Coordination: Finger-to- nose-finger and guue-gc-jtla intact bilaterally. No ataxia of arms. No [...] She had tilt table testing done at [facility] that I do not have record of, [...] with more than 50% of the total azzr-md-gami time of the visit in counseling / [...] - TILT TABLE EVALUATION Flavio Tran MSN, SALES AND EVENTS COORDINATOR, SAFE DEPOSIT CLERK-C 1. This office note has been dictated [...] the discretion of your PCP/referring physician Normal [facility] Vitamin B1, Whole Blon 06-04 Vitamin B1 (TDP), WB 189.4 nmol/L Normal 84.0-213.0 [facility] Comment on above: Result Comment: This assay measures the concentration of thiamine diphosphate (TDP), the primary active form of vitamin B1. Approximately 90 percent of vitamin B1 present in whole blood is TDP. Thiamine and thiamine monophosphate, which comprise the remaining 10 percent, are not measured. This test was developed and its performance characteristics determined by [facility]'s [facility] Pathology and Laboratory Medicine [place] ( PLOK). It has not been cleared or approved by the FDA. [facility] is regulated under CLIA as qualified to perform high complexity testing. This test is used for clinical purposes. It should not be regarded as investigational or for research. Performed By: #### C BC, CMP, MG1, PHOS #### [place] [address] [place], [place] [address] Vitamin B12on 06-04-2019 Cobalamin (Vitamin B12) [Mass/Vol] 989 pg/mL Normal 232-1245 [facility] Comment on above: Performed By: #### C BC, CMP, MG1, PHOS #### [place] [address] [place], [place] [address] Vitamin B6 Plasmaon 06-04-20 19 Vitamin B6 Plasma 29.7 nmol/L Normal 20.0-125.0 [facility] Comment on above: Result Comment: (NOT E) INTERPRETIVE INFORMATION: Vitamin B6 (Pyridoxal 5-Phosphate) Pyridoxal 5'-phosphate measured in a specimen collected following an 8-hour or overnight fast accurately indicates vitamin B6 nutritional status. Non-fasting specimen concentration reflects recent vitamin intake. Test developed and characteristics determined by [facility]. See Compliance Statement B: [facility]CS Performed by [facility], [address] [place] [id number] [email or web address], Chris Domingo MD, Lab. Director Performed By: #### C BC, CMP, MG1, PHOS #### [place] [address] [place], [place] [address] PLAN OF CAREon 05-16-2019 PLAN OF CARE HNO ID: [id number] Author: Drew Walton Service: Cardiovascular Medicine Author Type: Resident Type: Plan of Care Filed: 05/16/2019 7:39 AM Note Text: Attestation signed by John Valdivia at 05/16/2019 9:00 AM [facility] STAFF PHYSICIAN NOTE OF PERSONAL INVOLVEMENT IN [...] chordal structure . Cardiac enzymes negative at [facility]. TTE done yesterday with normal systolic function, no wall motion abnormalities, and no thickening or mobile lesion. Cardiology will sign off at this time. Please do not hesitate to re consult with any concerns. Drew Walton MD [phone] Normal [facility] PROGRESSon 05-15-2019 PROGRESS HNO ID: [id number] Author: Shanae Morales Service: General Internal Medicine Author Type: Physician Type: Progress Notes Filed: 05/15/2019 5:43 PM Note Text: SERVICE DATE: 05/15/2019 SERVICE TIME: 5:31 PM HOSPITAL MEDICINE PROGRESS NOTE NIGHT AND WEEKEND COVERAGE: Days: [phone] [place] [phone] for patient issues. Nights: [phone] For patients on H80/81, G80/81, please page GIM team pager [phone] For patients on any other floor, please page GIM team pager [phone] Hospital Medicine/Primary Attending: Shanae Morales MD Subjective [...] 0830 vte non-pharmacologic prophylaxis - none indicated (pr,oh) VTE Prophylaxis: VTE prophylaxis appropriate Plan of care discussed with: Provider, Family/Significant Other: mother, Care Management and RN SIGNATURE: Shanae Morales MD PATIENT NAME: Fadia Lan DATE: May 15, 2019 TIME: 5:31 PM PAGER/CONTACT #: [phone] Normal [facility] C-Reactive Proteinon 019 CRP [Mass/Vol] mg/L Normal <0.9 [facility] Comment on above: Performed By: #### V ALLBG #### [facility] [address] [place], [place] [address] CASE MANAGEMon 05-14-2019 CASE MANAGEM HNO ID: [id number] Author: Sendy Boudreaux) MICHAEL Olson Service: Care Management Author Type: Registered Nurse Type: Care Mgt Progress Note Filed: 05/14/2019 5:44 PM Note Text: CARE MANAGEMENT PROGRESS NOTE SERVICE DATE: 05/14/2019 SERVICE TIME: 5:43 PM LOS: 2 days 05:40 pm Attempted bedside visit I.A. Pt observed sleeping. CM will return the visit. SIGNATURE: Sendy Olson RN PATIENT NAME: Fadia Lan DATE: May 14, 2019 TIME: 5:43 PM PAGER/CONTACT #: [phone] Normal [facility] CASE MANAGEM HNO ID: [id number] Author: Ruby Boudreaux) MICHAEL Haile Service: Case Management Author Type: Registered Nurse [...] 14, 2019 TIME: 2:43 PM PAGER/CONTACT #: [phone] Normal [facility] Cortisolon 05-14-2019 Cortisol 20.4 ug/dL Normal [facility] Comment on above: Result Comment: Juan isol Reference Range: AM = 5.3-22.5, PM = 3.4-16.8 Performed By: #### C BC, CMP, MG1, PHOS #### [facility] [address] [place] [address] PLAN OF CAREon 05-14-2019 PLAN OF CARE HNO ID: [id number] Author: Dante Smith MD Service: Neurology General [...] if new findings on EEG, please page [phone] -Pt should follow up with epilepsy - will place follow up order -For further POTS management, pt may follow up in autonomic clinic if she chooses -Please page with further questions Dante Smith MD PGY-2 Neurology Pager [phone] Normal [facility] PROGRESSon 05-14-2019 PROGRESS HNO ID: [id number] Author: Shanae Morales Service: General Internal Medicine Author Type: Physician Type: Progress Notes Filed: 05/14/2019 6:19 PM Note Text: SERVICE DATE: 05/14/2019 SERVICE TIME: 6:17 PM HOSPITAL MEDICINE PROGRESS NOTE NIGHT AND WEEKEND COVERAGE: Days: [phone] [place] [phone] for patient issues. Nights: [phone] For patients on H80/81, G80/81, please page GIM team pager [phone] For patients on any other floor, please page GIM team pager [phone] Hospital Medicine/Primary Attending: Shanae Morales MD Subjective [...] 0830 vte non-pharmacologic prophylaxis - none indicated (pr,ny) VTE Prophylaxis: VTE prophylaxis appropriate Plan of care discussed with: Patient, Family/Significant Other: mother, Care Management and RN via telephone SIGNATURE: Shanae Morales MD PATIENT NAME: Fadia Lan DATE: May 14, 2019 TIME: 6:17 PM PAGER/CONTACT #: [phone] Normal [facility] Troponin Ton 05-14-2019 Troponin T.cardiac [Mass/Vol] ug/L Normal 0.000-0.029 [facility] Comment on above: Performed By: #### V ALLBG #### [facility] [address] [place], [place] [address] NURSING PROGon 05-13-2019 NURSING PROG HNO ID: [id number] Author: Colleen (Rn) MICHAEL Devine Service: ? Author Type: Registered Nurse Type: Nursing Progress Note Filed: 05/13/2019 5:05 AM Note Text: Nursing Progress Note Patient Name: Fadia Lan Patient Location: G091 027/G091-28 Daily Note: Pt arrived to unit in stable condition. Pt was fully assessed including skin check with 2nd RN. Pt was oriented to room, instructed on how to use the call button, explained why she is currently a falls risk, and taught her how to use the call light for help. Pt stated that her belongings include her cell lurdes, sock knitter, health history documents, and home medications. I instructed patient that doctors will need to see medication to reconcile med orders but that we will be providing all medication while she is in the hospital. Pt showed no signs and had no c/o pain, dizziness, chest pains or seizure activity at this time. This note was completed by: Colleen Devine RN Normal [facility] PROGRESSon 05-13-2019 PROGRESS HNO ID: [id number] Author: Gerald oBrrego) Mario Alberto Service: Hospital Medicine Author Type: Physician Type: Progress Notes Filed: 05/13/2019 1:54 PM Note Text: Plan of care note Spoke to pt and family at bedside Went over previous work up with them They have paper records from [facility] RECORDS - ECHO - 3 echos done so [...] Staff, Dept. Of Hospital Medicine PAGER - [phone] ' Normal [facility] PROGRESS HNO ID: [id number] Author: Scott Diazmiguelkecia Service: Hospital Medicine Author Type: Physician Type: Progress Notes Filed: 05/13/2019 2:50 AM Note Text: DEPARTMENT OF HOSPITAL MEDICINE PROGRESS NOTE SERVICE DATE: 05/13/2019 SERVICE TIME: 2:42 AM Primary Care Physician: Danilo Dinero MD NIGHT AND WEEKEND COVERAGE: Please page me at [phone] with any question between 5 pm-8 am. [...] presented to OSH and transferred her for opin. No past medical history on file. No [...] 0830 vte non-pharmacologic prophylaxis - none indicated (pr,oh) VTE Prophylaxis: low risk Disposition: Home Plan of care discussed with: Patient and RN SIGNATURE: Scott Rodriguez MD PATIENT NAME: Fadia Lan DATE: May 13, 2019 TIME: 2:11 AM PAGER/CONTACT #: [phone] etx [phone] Normal [facility] CBCon 05-12-2019 Absolute nRBC <0.01 Normal <0.01 [facility] Comment on above: Performed By: #### C BC, CMP, MG1, PHOS #### [facility] [address] [place], [place] [address] Erythrocyte distribution width (RBC) [Ratio] 11.3 % Low 11.5-15.0 [facility] Comment on above: Performed By: #### C BC, CMP, MG1, PHOS #### [facility] [address] [place], [place] [address] Hematocrit (Bld) [Volume fraction] 36.1 % Normal 36.0-46.0 [facility] Comment on above: Performed By: #### C BC, CMP, MG1, PHOS #### [facility] [address] [place], [place] [address] Hemoglobin (Bld) [Mass/Vol] 12.6 g/dL Normal 11.5-15.5 [facility] Comment on above: Performed By: #### C BC, CMP, MG1, PHOS #### [facility] [address] [place], [place] [address] MCH (RBC) [Entitic mass] 31.0 pG Normal 26.0-34.0 [facility] Comment on above: Performed By: #### C BC, CMP, MG1, PHOS #### [place] [address] [place], [place] [address] MCHC (RBC) [Mass/Vol] 34.9 g/dL Normal 30.5-36.0 [facility] Comment on above: Performed By: #### C BC, CMP, MG1, PHOS #### [place] [address] [place] [address] MCV (RBC) [Entitic vol] 88.7 fL Normal 80.0-100.0 [facility] Comment on above: Performed By: #### C BC, CMP, MG1, PHOS #### [place] [address] [place], [place] [address] Platelet mean volume (Bld) [Entitic vol] 8.6 fL Low 9.0-12.7 [facility] Comment on above: Performed By: #### C BC, CMP, MG1, PHOS #### [place] [address] [place], [place] [address] Platelets (Bld) [#/Vol] 328 10*3/uL Normal 150-400 [facility] Comment on above: Performed By: #### C BC, CMP, MG1, PHOS #### [place] [address] [place], [place] [address] RBC (Bld) [#/Vol] 4.07 10*6/uL Normal 3.90-5.20 [facility] Comment on above: Performed By: #### C BC, CMP, MG1, PHOS #### [place] [address] [place] [address] WBC (Bld) [#/Vol] 5.72 10*3/uL Normal 3.70-11.00 [facility] Comment on above: Performed By: #### C BC, CMP, MG1, PHOS #### [address] [place], [place] [address] CONSULTon 05-12-2019 CONSULT HNO ID: [id number] Author: Ramesh Scales Service: Neurology General Author [...] tend to occur in 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 Prior work-up includes [...] years ago after head injury while playing [employer] ball. She denied smoking, drinking alcohol, and drug use. She is currently having problems with insomnia. She denied significant stress. She has had to stay home from high school and quit her job at [employer] due to episodes. Current Facility-Administered Medications Medication [...] ? Coordination: Finger-to- nose-finger intact bilaterally and Rchp-dd-cquy intact bilaterally. ? Gait: Not examined. LABS/DATA: [...] in patient's chart). Impression/Recommenda tions This is Ms. Fadia Lan [...] [place] [phone]. - [place] [phone] with questions. The patient was evaluated by Neurology Moonlighter and will be formally seen by staff in the AM. SIGNATURE: Maria De Jesus Gunderson MD PGY4 Neurology Resident PATIENT NAME: Fadia Lan DATE: May 12, 2019 TIME: 12:49 PM PAGER/CONTACT #: [phone] Staff Note: I reviewed the history and physical obtained and documented by the resident and I personally participated in the rosado components. I agree with impression and plan. Ramesh Scales MD Normal [facility] Comp Metabolic Panelon 05-12 Albumin [Mass/Vol] 4.1 g/dL Normal 3.9-4.9 [facility] Comment on above: Performed By: #### C BC, CMP, MG1, PHOS #### [place] [address] [place] [address] ALP [Catalytic activity/Vol] 54 U/L Normal 45-87 [facility] Comment on above: Result Comment: Refe rence ranges were not locally established for this patient's age group. The normal values are based on the following source: Austen MP, Dari AH, et al. CLSI based transference of the CALIPER database of pediatric reference intervals from [employer]aftOut to Antionette, Ortho, Nathalia, and Siemens Clinical Chemistry Assays: Direct validation using reference samples from the TrueAccord cohort. Clin Biochem. Performed By: #### C BC, CMP, MG1, PHOS #### [place] [address] [place] [address] ALT [Catalytic activity/Vol] 10 U/L Normal 7-38 [facility] Comment on above: Performed By: #### C BC, CMP, MG1, PHOS #### [place] [address] [place] [address] Anion gap [Moles/Vol] 11 mmol/L Normal 9-18 [facility] Comment on above: Performed By: #### C BC, CMP, MG1, PHOS #### [place] [address] [place] [address] AST [Catalytic activity/Vol] 14 U/L Normal 13-35 [facility] Comment on above: Performed By: #### C BC, CMP, MG1, PHOS #### [place] [address] [place] [address] Bilirubin [Mass/Vol] 0.5 mg/dL Normal 0.2-1.3 [facility] Comment on above: Performed By: #### C BC, CMP, MG1, PHOS #### [place] [address] [place] [address] Calcium [Mass/Vol] 8.7 mg/dL Normal 8.5-10.2 [facility] Comment on above: Performed By: #### C BC, CMP, MG1, PHOS #### [place] [address] [place] [address] Chloride [Moles/Vol] 105 mmol/L Normal 97-105 [facility] Comment on above: Performed By: #### C BC, CMP, MG1, PHOS #### [place] [address] [place] [address] CO2 [Moles/Vol] 26 mmol/L Normal 22-30 [facility] Comment on above: Performed By: #### C BC, CMP, MG1, PHOS #### [address] [place] [place] [address] Creatinine [Mass/Vol] 0.58 mg/dL Normal 0.58-0.96 [facility] Comment on above: Performed By: #### C BC, CMP, MG1, PHOS #### [place] [address] [place] [address] eGFR- Amer. >60 Normal [facility] Comment on above: Performed By: #### C BC, CMP, MG1, PHOS #### [place] [address] [place] [address] GFR/1.73 sq M predicted among non-blacks MDRD (S/P/Bld) [Vol rate/Area] mL/min/{1.73_m2} Normal [facility] Comment on above: Result Comment: eGFR (Estimated [...] #### C BC, CMP, MG1, PHOS #### [facility] [address] [place], [place] [address] Glucose [Mass/Vol] 81 mg/dL Normal 74-99 [facility] Comment on above: Result Comment: The [place] Diabetes Association (ADA) provides guidance for cutoff [...] Standards of Medical Care in Diabetes 2016, [place] Diabetes Association. Diabetes Care. 2016.39(Suppl 1). Performed By: #### C BC, CMP, MG1, PHOS #### [facility] [address] [place], [place] [address] Potassium [Moles/Vol] 3.3 mmol/L Low 3.7-5.1 [facility] Comment on above: Performed By: #### C BC, CMP, MG1, PHOS #### [facility] [address] [place], [place] [address] Protein [Mass/Vol] 6.1 g/dL Low 6.3-8.0 [facility] Comment on above: Performed By: #### C BC, CMP, MG1, PHOS #### [facility] [address] [place], [place] [address] Sodium [Moles/Vol] 142 mmol/L Normal 136-144 [facility] Comment on above: Performed By: #### C BC, CMP, MG1, PHOS #### [facility] [address] [place], [place] [address] Urea nitrogen [Mass/Vol] 5 mg/dL Low 7- [facility] Comment on above: Performed By: #### C BC, CMP, MG1, PHOS #### [facility] [address] [place], [place] [address] ECG COMPLETEon 05-12-2019 ECG COMPLETE NAME : FADIA LAN PID : [id number] : 2000 Gender : Female Race : ORD : [id number] Procedure Date : May 12 2019 13:55:01 Edit Date : May 16 2019 11:01:21 Diagnosis:SINUS RHYTHM WITH MARKED SINUS ARRHYTHMIA OTHERWISE NORMAL ECG Confirmed by MD STACEY, PhD, IZABELA ([id number]) on 05/16/2019 11:01:16 AM Ventricular Rate : 67 BPM Atrial Rate : 67 BPM P-R Interval : 144 ms QRS Duration : 86 ms Q-T Interval : 412 ms QTC Calculation(Bazett) : 435 ms P [place] : 62 degrees R [place] : 65 degrees T [place] : 54 degrees Test Reason : Arrhythmia Location : 151 : G51 09 Overread By : MD STACEY, PhD,IZABELA Edited By : MD STACEY, PhD,IZABELA Referred By : MERRITT HANLEY Acquired by : YUAN DIAZ [facility] EKG1on 05-12-2019 EKG1 NAME : FADIA LAN PID : [id number] : 2000 Gender : Female Race : [...] ms QTC Calculation(Bazett) : 432 ms P [place] : 64 degrees R [place] : 76 degrees T [place] : 45 degrees Test Reason : Location : 115 : G60NS Overread By : MD STACEY, PhD,IZABELA Edited By : MD STACEY, PhD,IZABELA Referred By : , Acquired by : [id number], Normal [facility] GASV + ALLon 05-12-2019 Base Excess 1 mmol/L Normal [facility] Comment on above: Performed By: #### V ALLBG #### [place] [address] [place] [address] Calcium [Mass/Vol] 1.23 mmol/L Normal 1.08-1.30 [facility] Comment on above: Performed By: #### V ALLBG #### [place] [address] [place] [address] Carboxyhemoglobin,Kevin 1.1 % Normal <2.0 [facility] Comment on above: Performed By: #### V ALLBG #### [place] [address] [place] [phone] CO2 [Moles/Vol] 28 mmol/L Normal 25-29 [facility] Comment on above: Performed By: #### V ALLBG #### [place] [address] [place] [address] Glucose [Mass/Vol] 84 mg/dL Normal 60-105 [facility] Comment on above: Performed By: #### V ALLBG #### [place] [address] [place] [address] HCO3 (Bld) [Moles/Vol] 27 mmol/L Normal 24-28 [facility] Comment on above: Performed By: #### V ALLBG #### [place] [address] [place] [address] Hematocrit (Bld) [Volume fraction] 40 % Normal 36.0-46.0 [facility] Comment on above: Performed By: #### V ALLBG #### [place] [address] [place] [id number] Hemoglobin (Bld) [Mass/Vol] 12.9 g/dL Normal 11.5-15.5 [facility] Comment on above: Performed By: #### V ALLBG #### [place] [address] [place], [place] [address] Lactate [Moles/Vol] 0.9 mmol/L Normal 0.5-2.2 [facility] Comment on above: Performed By: #### V ALLBG #### [place] [address] [place] [address] Methemoglobin 0.6 % Normal 0.4-1.5 [facility] Comment on above: Performed By: #### V ALLBG #### [place] [phone] Oxygen (Bld) [Partial pressure] 46 mm Hg High 35-45 [facility] Comment on above: Performed By: #### V ALLBG #### [place] [place] [address] Oxyhemoglobin, Kevin. 76 % Normal 60-85 [facility] Comment on above: Performed By: #### V ALLBG #### [place] [address] [place] [phone] pCO2 49 mm Hg Normal 42-55 [facility] Comment on above: Performed By: #### V ALLBG #### [place] [address] [place] [phone] pCO2, Temp Correct 49 mm Hg Normal [facility] Comment on above: Performed By: #### V ALLBG #### [address] [place] [place], [place] [address] pH (Bld) 7.36 [pH] Normal 7.32-7.42 [facility] Comment on above: Performed By: #### V ALLBG #### [place] [place] [id number] pH, Temp Corrected 7.36 Normal 7.32-7.42 [facility] Comment on above: Performed By: #### V ALLBG #### [facility] [address] [place] [address] pO2, Temp Corrected 46 mm Hg Normal [facility] Comment on above: Performed By: #### V ALLBG #### [place] [address] [place] [address] Potassium [Moles/Vol] 3.3 mmol/L Low 3.5-5.0 [facility] Comment on above: Performed By: #### V ALLBG #### [place] [address] [place] [address] Sodium [Moles/Vol] 140 mmol/L Normal 132-148 [facility] Comment on above: Performed By: #### V ALLBG #### [place] [address] [place] [address] HISTORY PHYSICALon 9 HISTORY PHYSICAL HNO ID: [id number] Author: Tony Tapia MD Service: Critical Care Author Type: Resident Type: HANDP Filed: 05/12/2019 2:09 PM Note Text: Attestation signed by Skip Zee at 05/12/2019 6:09 PM [facility] STAFF PHYSICIAN NOTE OF PERSONAL INVOLVEMENT IN [...] of care, medical plan for the day, family consultant recommendations, medical disposition and current medical condition/prognosis as and if clinically indicated. All questions and concerns were answered and addressed at this juncture. They were notified on May 12, 2019. Plan of care discussed with: Provider, RN, Patient. SIGNATURE: Skip Zee MD [facility] May 12, 2019 6:00 PM May 12, 2019 12:44 PM Fadia Lan ADMISSION DATE: 05/12/2019 [id number] LENGTH OF STAY: 0 Fadia is a [...] to be S Aureus Impetigo by a director of sales and marketing. Keflex and mupirocin given and the infection [...] 0830 vte non-pharmacologic prophylaxis - none indicated (pr,oh) 05/12/19 08 activity - mobilize patient (pr,oh) VTE Prophylaxis: VTE prophylaxis appropriate Bowels: no [...] DVT ppx: hep subq Dispo: floor Tony Taipa PGY2 Note to be reviewed by Dr. Yayo Bill [facility] Magnesiumon 05-12-2019 Magnesium [Mass/Vol] 1.9 mg/dL Normal 1.7-2.3 [facility] Comment on above: Performed By: #### C BC, CMP, MG1, PHOS #### [facility] [address] [place] [id number] PROGRESSon 05-12-2019 PROGRESS HNO ID: [id number] Author: John Valdivia Service: Cardiovascular Medicine Author Type: Physician Type: Progress Notes Filed: 05/13/2019 2:01 PM Note Text: [facility] CARDIOVASCULAR MEDICINE HISTORY AND PHYSICAL Fadia Lan [id number] PRIMARY SERVICE: [facility] DATE OF ADMISSION: 05/12/2019 CHIEF COMPLAINT: troponinemia [...] mobile density -I uploaded the echos to [employer]. Would repeat TTE here. 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 Briefly, Ms. Loaiza is an 18 year [...] will continue to follow. Drew Walton MD [phone] [facility] STAFF PHYSICIAN NOTE OF PERSONAL INVOLVEMENT IN [...] evidence of cardiomyopathy PLAN: repeat troponin at [facility] And if elevated consider further testing Echocardiogram telemetry monitoring John Valdivia MD DATE of SERVICE: May 13, 2019 TIME of SERVICE: 2:00 PM Normal [facility] Phosphoruson 05-12-2019 Phosphate [Mass/Vol] 3.9 mg/dL Normal 2.7-4.8 [facility] Comment on above: Performed By: #### C BC, CMP, MG1, PHOS #### [place] [address] [place] [address] Sed Rate Westergrenon 2018 Sed Rate Westergren 2 mm/hr Normal 0-20 [facility] Comment on above: Performed By: #### T NT, WSR, TSH #### [place] [address] Staph aureus PCRon 9 MRSA PCR Negative Normal [facility] Comment on above: Performed By: #### V ALLBG #### [place] [address] [place] [address] S aureus Spec Source Nasal Normal [facility] Comment on above: Performed By: #### V ALLBG #### [place] [address] Staph aureus PCR Negative Normal [facility] Comment on above: Result Comment: Perf ormance characteristics of this assay for testing specimens from patients <=21 years of age were determined by [facility]'s Maria R JGrayson [facility] Pathology and Laboratory [facility] [place] ([facility]). Performance on this age group has not been approved by the FDA. [facility] is regulated under CLIA as qualified to perform high complexity testing. This test is used for clinical purposes. It should not be regarded as investigational or for research. Performed By: #### V ALLBG #### [place] [address] [place] [address] TSHon 05-12-2019 TSH Qn 1.970 uU/mL Normal 0.510-4.300 [facility] Comment on above: Result Comment: If t [...] E, et al. 2017 Guidelines of the [place] [employer] for the Diagnosis and Management of Thyroid Disease during and the . Thyroid, 2017:27:3:315-389. Reference ranges were not locally established for this patient's age group. The normal values are based on the following source: Awa Aceves V. Reference Ranges for Adults and Children: Pre-analytical Considerations. [facility] Performed By: #### V ALLBG #### [facility] [employer] [address] [address] Toxicology Screen,Uron 05-12 Amphetamines, Urine Negative Normal Negative [facility] Comment on above: Result Comment: Cuto ff threshold at 1000 ng/mL. Performed By: #### U TOX2, UAWMIC #### [facility] [employer] [address] [place] [address] Barbiturates, Urine Negative Normal Negative [facility] Comment on above: Result Comment: Cuto ff threshold at 200 ng/mL. Performed By: #### U TOX2, UAWMIC #### [facility] [employer] [address] [place] [address] Benzodiazepines, Ur Negative Normal Negative [facility] Comment on above: Result Comment: Cuto ff threshold at 200 ng/mL. Performed By: #### U TOX2, UAWMIC #### [facility] [employer] [address] [place] [address] Cannabinoids, Urine Negative Normal Negative [facility] Comment on above: Result Comment: Cuto ff threshold at 50 ng/mL. Performed By: #### U TOX2, UAWMIC #### [place] [address] Cocaine, Urine Negative Normal Negative [facility] Comment on above: Result Comment: Cuto ff threshold at 300 ng/mL. Performed By: #### U TOX2, UAWMIC #### [place] [address] Ethanol, Urine <11 Normal <11 [facility] Comment on above: Performed By: #### U TOX2, UAWMIC #### [place] [address] Opiates, Urine Negative Normal Negative [facility] Comment on above: Result Comment: Cuto ff threshold at 300 ng/mL. Performed By: #### U TOX2, UAWMIC #### [place] [address] Oxycodone, Urine Negative Normal Negative [facility] Comment on above: Result Comment: Cuto ff [...] on the same specimen through Client Services ([phone]) if contacted within 48 hours of initial testing. [1]Substance Abuse and Mental Health Services Administration (2012). Clinical Drug Testing in Primary Care Technical Assistance Publication Series 32. Department of Health and Human Services, [place], p.10. Performed By: #### U TOX2, UAWMIC #### [facility] [address] [place] [phone] Phencyclidine, Urine Negative Normal Negative [facility] Comment on above: Result Comment: Cuto ff threshold at 25 ng/mL. Performed By: #### U TOX2, UAWMIC #### [place] [address] [place] [phone] Troponin Ton 05-12-2019 Troponin T.cardiac [Mass/Vol] ug/L Normal 0.000-0.029 [facility] Comment on above: Performed By: #### T NT, WSR, TSH #### [place] [address] [place] [phone] Urinalysis with Microscopico n 05-12-2019 Bilirubin, Urine Negative Normal Negative [facility] Comment on above: Performed By: #### U TOX2, UAWMIC #### [place] [phone] Clarity (U) Clear Normal Clear [facility] Comment on above: Performed By: #### U TOX2, UAWMIC #### [place] [address] [place] [phone] Color (U) Yellow Normal Yellow [facility] Comment on above: Performed By: #### U TOX2, UAWMIC #### [place] [address] [place] [phone] Comments SEE COMMENT Normal [facility] Comment on above: Result Comment: N/A Performed By: #### U TOX2, UAWMIC #### [place] [address] [place] [phone] Epithelial cells LM.HPF (Urine sed) [#/Area] SEE COMMENT Normal [facility] Comment on above: Result Comment: Few Squamous Epithelial Cells Performed By: #### U TOX2, UAWMIC #### [facility] [employer] [facility] [place] [phone] Glucose Ql (U) Negative Normal Negative [facility] Comment on above: Performed By: #### U TOX2, UAWMIC #### [place] [address] [place], [place] [address] Hemoglobin/Blood,Ur 1+ Critically abnormal Negative [facility] Comment on above: Performed By: #### U TOX2, UAWMIC #### [place] [address] [place] [phone] Ketones Ql (U) Negative Normal Negative [facility] Comment on above: Performed By: #### U TOX2, UAWMIC #### [place] [address] [place] [address] Leukest Negative Normal Negative [facility] Comment on above: Performed By: #### U TOX2, UAWMIC #### [place] [address] Nitrite Ql (U) Negative Normal Negative [facility] Comment on above: Performed By: #### U TOX2, UAWMIC #### [place] [address] pH (Bld) 6.0 Normal 4.5-8.0 [facility] Comment on above: Performed By: #### U TOX2, UAWMIC #### [place] [address] [place], [place] [address] Protein (U) [Mass/Vol] Negative Normal Negative [facility] Comment on above: Performed By: #### U TOX2, UAWMIC #### [place] [address] [place], [place] [address] RBC (U) [#/Vol] 0-3 Normal 0-3 [facility] Comment on above: Performed By: #### U TOX2, UAWMIC #### [place] [address] [place] [phone] Specific [place], Ur 1.009 Normal 1.005-1.030 [facility] Comment on above: Performed By: #### U TOX2, UAWMIC #### [place] [address] [place] [phone] Urine Álvaro Comment SEE COMMENT Normal [facility] Comment on above: Result Comment: N/A Performed By: #### U TOX2, UAWMIC #### [place] [address] [place] [address] Urobilinogen Qn (U) Normal Normal Normal [facility] Comment on above: Performed By: #### U TOX2, UAWMIC #### [place] [address] [place] [address] WBC (Bld) [#/Vol] 0-5 Normal 0-5 [facility] Comment on above: Performed By: #### U TOX2, UAWMIC #### [place] [address] [place] [phone] CNCOon 05-01-2019 CNCO Letter Text Normal [facility] Vital Signs Date Time Vital Sign Value Performing Clinician Facility 10-10-2020 21:15-0400 Diastolic blood pressure 57 mm[Hg] Estuardo Carter MD Work Phone: [employer] Work Phone: 10-10-2020 21:15-0400 Heart rate 92 /min Estuardo Carter MD Work Phone: [employer] Work Phone: 10-10-2020 21:15-0400 Respiratory rate 16 /min Estuardo Carter MD Work Phone: [employer] Work Phone: 10-10-2020 21:15-0400 SaO2% (BldA) [Mass fraction] 96 % Estuardo Carter MD Work Phone: [employer] Work Phone: 10-10-2020 21:15-0400 Systolic blood pressure 105 mm[Hg] Estuardo Carter MD Work Phone: [employer] Work Phone: 10-10-2020 19:12-0400 Body temperature 98.71 [degF] Estuardo Carter MD Work Phone: [employer] Work Phone: 10-10-2020 16:39-0400 Body weight 57.61 kg Estuardo Carter MD Work Phone: [employer] Work Phone: 05-12-2019 11:07-0500 Body temperature 98.6 [degF] [facility] Comment on above: Performed By: #### VALLBG #### [place] [address] [place] [address] Encounters Encounter Date Encounter Type Care Provider Facility Start: 06-28-2023 End: 06-28-2023 ambulatory DMITRI GOLD Not Available Start: 08-17-2022 End: 08-18-[address] DMITRI GOLD . Facility:[facility] Start: 2022 Encounter for preprocedural laboratory examination DR DMITRI GOLD . [facility] Start: 07-02-2022 End: 07-02-[address] DMITRI [...] DMITRI GOLD . Facility:[facility] Start: 01-18-2022 End: 01-18-[address] DANILO DINERO . Facility:[facility] Start: 10-10-2020 End: 10-10-2020 Emergency department patient visit ESTUARDO CARTER [facility] Start: 10-10-2020 End: 10-10-2020 Emergency department patient [...] Influenza vaccination Flu vacc ine (Season Ended) [facility] Work Phone: Start: 2019 DTaP/Tdap/Td vaccine (1 - Tdap) DTaP/Tdap/Td vaccine (1 - Tdap) [facility] Work Phone: Start: 2016 COVID-19 Vaccine (1) COVID-19 Vaccin e (1) [facility] Work Phone: Start: 2016 Screening for Chlamy alda trachomatis Chlamydia screen [facility] Work Phone: Start: 2015 HIV screening HIV screen [facility] Work Phone: Start: 2011 HPV vaccine (1 - 2-d ose series) HPV vaccine (1 - 2-dose series) [employer] Phone: Start: 2001 Varicella vaccine (1 of 2 - 2-dose childhood series) Varicella vaccine (1 of 2 - 2-dose childhood series) [employer] Phone: Start: 2000 Hepatitis C screening Hepatitis C sc reen [employer] Phone: Oxygen therapy [[facility]] Initiate Oxygen Therapy Protocol Respiratory Care Routine Daily until discontinued starting 10/10/2020 [employer] Phone: Comment on above: Daily until disconti nued starting 10/10/2020 Phase I & II - meter ed glucose Phase I & II - metered glucose Point of Care Testing Routine As Needed until discontinued starting 10/10/2020 [employer] Phone: Comment on above: As Needed until disc ontinued starting 10/10/2020 Surgical Pathology Surgical Path ology Lab Routine Release Upon Ordering for 1 Occurrences starting 10/10/2020 [employer] Phone: Comment on above: Release Upon Orderin g for 1 Occurrences starting 10/10/2020 Payers Date Payer Category Payer Private Health Insurance [id number] 2000 Unknown [id number] 2.16.84 [id number] 2000 Unknown [id number] 2.16.84 [id number] 2000 Unknown [id number] 2.16.84 [id number] 2000 Unknown [id number] 2.16.84 [id number] 2000 Unknown [id number] 2.16.84 [id number] 2000 Unknown [id number] 2.16.84 [id number] 2000 Unknown [id number] 2.16.84 [id number] 2000 Unknown [id number] 2.16.84 [id number] 2000 Unknown [id number] 2.16.84 [id number] 1959 Unknown [id number] Social History Date Type Detail Facility Start: 10-10-2020 Tobacco smoking stat [facility] Never smoker [employer] Phone: Start: 10-10-2020 Tobacco use and exposure Never used [employer] Start: 10-10-2020 Alcohol intake Lifetime non-d tyler (finding) [employer] Phone: Start: 10-10-2020 History SDOH Alcohol Frequency 1 [employer] Phone: Sex Assigned At Not on file [employer] Phone: Exposure to SARS-CoV -2 (event) Not sure [employer] Clinical Note 07-02-2022 Note Date & Type Note Facility 07-02-2022 Note OPERATIVE NOTE OPERATION DATE: 07/02/2022 PROCEDURE: Diagnostic laparoscopy with left ovarian cystectomy and lysis of bowel adhesions from the pelvic side wall. PREOPERATIVE DIAGNOSIS: Pelvic pain, left ovarian cyst. POSTOPERATIVE DIAGNOSIS: Pelvic pain, left ovarian cyst, bowel adhesions to the left pelvic side wall. ANESTHESIA: General. SURGEON: Dmitri Gold D.O. WORKFORCE ADVISOR: YASEMIN Stauffer URINE OUTPUT: Yellow and clear. [...] to Recovery Room in stable condition. [facility] History of Present illness Narrative 10-10-2020 [...] from the procedure. documented in this encounter [employer] Phone: Hospital Discharge instructions 10-10-2020 Instructions Note [...] surgeon in [address] Rao -- [place] office [phone] [place] office [phone] documented in this encounter [employer] Phone: Evaluation note Note Date & Type Note Facility Evaluation note Diagnosis Flank pain- Primary Abdominal pain, unspecified site Dermoid cyst of right ovary Post-op pain Other acute postoperative pain Pelvic pain Right ovarian cyst Other and unspecified ovarian cyst documented in this encounter [employer] Phone: Summary Purpose Family History No Family History Records FoundNo Family History Records FoundNo Family History Records FoundNo Family History Records Found Advance Directives No Advanced Directives Records FoundNo Advanced Directives Records FoundNo Advanced Directives Records FoundNo Advanced Directives Records Found Hospital Course Note HNO ID: [id number] Author: Alison Morales Service: General Internal Medicine [...] section and content) DATE CREATED AUTHOR 08/14/2019 [facility] DATE CREATED AUTHOR AUTHOR'S ORGANIZ ATION 10/15/2020 Val[facility] Ernst [facility] DATE CREATED AUTHOR AUTHOR'S ORGANIZ ATION 08/26/2022 [facility] DATE CREATED AUTHOR AUTHOR'S ORGANÁNGEL ATION 06/29/2023 [facility] EPIC Reason for Visit (unrecogniz ed section and [...] BE BASED ON THE PRIMARY CLINICAL RECORDS. [employer] provides no warranty or guarantee of the accuracy or completeness of information in this document.
== END 2023-10-17 12:56 | disposition home or self-care (01) ==
LOC: NOMS 12:55
PROVIDERS: PCP Family Medicine; Visit Provider Obstetrics & Gynecology
DX: N83.202 Unspecified ovarian cyst, left side (principal)
CPT/HCPCS: 76830; 76856

== ENCOUNTER 2024-01-18 14:51 | Outpatient (RCR) | payer OTHER, SELFPAY | END 2024-02-24 13:43 | disposition home or self-care (01) | LOC: PT 14:51 | PROVIDERS: PCP Family Medicine | DX: S93.602D Unspecified sprain of left foot, subsequent encounter (principal) | CPT/HCPCS: 97010; 97014; 97110; 97112; 97140; 97162 ==

== ENCOUNTER 2024-03-05 15:30 | Outpatient (OUT) | payer OTHER, SELFPAY ==
--- NOTE | 2024-03-05 15:32 | MR_ITS ---
The [address] [address] Patient Name: GONZALEZ SHANKAR MRN: [id number] date: 2000 Sex: F Assigned Patient Location: MRI Current Patient Location: MRI Accession/Order Number: [id number] Exam Date: 03/05/2024 15:40 Report Date: 03/06/2024 12:59 At the request of: NON-STAFF PHYSICIAN Procedure: MR foot LT wo con EXAM: MR foot LT wo con HISTORY: S93.602A Unspecified sprain of left foot, initial encounter COMPARISON: None. TECHNIQUE: Multiplanar, multisequence MRI of the left foot was obtained. The sagittal and coronal sequences were obtained for the entire foot and the axial sequences were obtained for the midfoot only. FINDINGS: Visualized bones: The signal of the bones appear within normal limits without evidence of an acute fracture. Tendons: The Achilles tendon is intact. There is mild tendinosis of the peroneal tendons as they course lateral to the calcaneus. No definite tear is seen. Plantar fascia: It is intact without evidence of tear. Joints: Normal alignment of the joints are preserved. Miscellaneous: The visualized neurovascular bundle show no definite abnormality. No evidence of a soft tissue mass. MR/MR foot LT wo con IMPRESSION: No acute process is visualized to explain patient's pain and symptoms. Electronically authenticated by: JULIET WAGNER Date: 03/06/2024 12:59
== END 2024-03-05 15:31 | disposition home or self-care (01) ==
LOC: MRI 15:30
PROVIDERS: PCP Family Medicine
DX: S93.602A Unspecified sprain of left foot, initial encounter (principal)
CPT/HCPCS: 73718

== ENCOUNTER 2024-04-16 15:11 | Emergency (ER) | payer OTHER, SELFPAY ==
[2024-04-16 15:14] VITALS: BP 113/74; PULSE 88; O2SAT 97
--- OUTSIDE RECORDS SUMMARY | 2024-04-16 15:26 | XMS_ITS | CCD ---
Author Organization [facility] Care Team Providers Care Manager Coding Name Role Phone Danilo Dinero MD Primary Care Provider [phone] ESTUARDO CARTER Attending Unavailable DANILO DINERO Primary Care Unavailable HOY ., DR CARRASCO Admitting Unavailable HOY ., [...] HOY ., DR CARRASCO Primary Care Unavailable SHUN, DR KRISTEN Bonilla Consulting Unavailable TITO ., [...] Care Unavailable SANDRA, DR GREYSON Joy Admitting Unavailsusie e SANDRA, DR GREYSON Joy Attending Unavailabl e SANDRA, DR GREYSON Joy Consulting Unavailabl e SHUN, DR KRISTEN Bonilla Consulting Unavailable TITO ., DR TEJEDA Admitting Unavailable TITO ., DR TEJEDA Attending Unavailable HOY ., DR CARRASCO Primary Care Unavailable TITO ., DR TEJEDA Consulting Unavailable TITO ., DR TEJEDA Admitting Unavailable TITO ., DR TEJEDA Attending Unavailable HOY ., DR CARRASCO Primary Care Unavailable TITO ., DR TEJEDA Consulting Unavailable CAN PEÑA Consulting Unavailable LEÓN QUINTANA Consulting Unavailable DMITRI GOLD Attending Unavailable MD Danilo Dinero Primary Care Provider [phone] MD Karson Manzanares Emergency Provider [phone] RadDO Major alonso Jr Attending Provider [phone] Radatz Jr, Edward Admitting Unavailable Radatz Jr, Edward Attending Unavailable Danilo Dinero Primary Care Unavailable Radatz Jr, Edward Admitting Unavailable Radatz Jr, Edward Attending Unavailable Danilo Dinero Primary Care Unavailable Radatz Jr, Edward Admitting Unavailable Dez Sexton, Edward Attending Unavailable Danilo Dinero Primary Care Unavailable Karson Manzanares Admitting Unavailable Karson Manzanares Attending Unavailable Danilo Dinero Primary Care Unavailable Radatz , Edward Admitting Unavailable Dez Sexton, Edward Attending Unavailable Danilo Dinero Primary Care Unavailable Danilo Dinero MD Primary Care Provider [phone] Allergies Allergy Classification Reported Allergen(s) Allergy Type Date of Onset Reaction(s) Facility (1 source) Penicillin Drug Allergy [facility] Repository (1 source) Penicillins Drug allergy (disorder) 4 [facility] Repository (3 sources) Amoxicillin Drug Allergy 3 Unknown [facility] (3 sources) cefdinir Drug Allergy 3 Unknown [facility] (3 sources) Penicillin G Drug Allergy 3 Swelling, Unknown [facility] Medications Current Medications Medication Drug Class(es) Dates Sig (Normalized) Sig (Original) acetaminophen 325 mg / HYDROcodone bitartrate 5 mg oral tablet (1 source) Opioid Agonist Start: 10-10-2020 End: 10-13-2020 HYDROcodone-aceta minophen (NORCO) 5-325 MG per tablet Indications: Post-op pain Take 1 tablet by mouth every 4 hours as needed for Pain for up to 3 days. Intended supply: 3 days. Take lowest dose possible to manage pain 12 tablet 0 10/10/2020 10/13/2020 Active [id number] 200 actuat albuterol 0.09 mg/actuat metered dose inhaler (3 sources) beta2-Adrenergic Agonist albuterol HFA (Ventolin HFA) 90 mcg/act inhaler every 4 (four) hours. Active calcium chloride 0.0014 meq/ml / potassium chloride 0.004 meq/ml / sodium chloride 0.103 meq/ml / sodium lactate 0.028 meq/ml injectable solution (1 source) Start: 10-10-2020 lactated ringers infusion citalopram 10 mg oral tablet (3 sources) Serotonin Reuptake Inhibitor Start: 12-17-2022 citalopram (CeleXA) 10 MG tablet 1 (one) time each day at the same time. 12/17/2022 Active 2 ml fentaNYL 0.05 mg/ml injection (4 sources) Opioid Agonist Start: 10-10-2020 fentaNYL (SUBLIMAZE) injection 50 mcg Start: 10-10-2020 fentaNYL (SUBL IMAZE) injection 25 mcg fludrocortisone acetate 0.1 mg oral tablet (3 sources) Start: 12-17-2022 fludrocortisone (Florinef) 0.1 MG tablet 1 (one) time each day at the same time. 12/17/2022 Active ibuprofen 800 mg oral tablet (3 sources) Nonsteroidal Anti-inflammatory Drug Start: 07-02-2022 take 1 tablet by mouth every eight hours as needed ibuprofen 800 MG tablet TAKE 1 TABLET BY MOUTH EVERY 8 HOURS NEEDED WITH FOOD 07/02/2022 Active ketorolac tromethamine 10 mg oral tablet (1 source) Nonsteroidal Anti-inflammatory Drug, Cyclooxygenase Inhibitor Start: 10-10-2020 take 1 tablet by mouth every six hours as needed for pain ketorolac (TORADOL) 10 MG tablet Take 1 tablet by mouth every 6 hours as needed for Pain 12 tablet 0 10/10/2020 Active levonorgestrel 0.636124 mg/hr intrauterine system (3 sources) Progestin, Progestin-containing Intrauterine Device levonorgestrel (Celine) 13.5 MG IUD as directed Intrauterine Active meloxicam 15 mg oral tablet (2 sources) Nonsteroidal Anti-inflammatory Drug Start: 04-03-2024 End: 05-03-2024 take 1 tablet by mouth once daily, then take 1 tablet by mouth once daily meloxicam (Mobic) 15 MG tablet Indications: Left ankle instability Take 1 tablet (15 mg) by mouth Daily Take one pill PO Daily 30 tablet 04/03/2024 05/03/2024 Active midodrine hydrochloride 2.5 mg oral tablet (3 sources) alpha-Adrenergic Agonist midodrine (Proamatine) 2.5 MG tablet Active pyridostigmine bromide 60 mg oral tablet (3 sources) take 1 tablet by mouth twice daily pyridostigmine (Mestinon) 60 MG tablet Take 1 tablet twice a day by oral route. Active 72 hr scopolamine 0.0139 mg/hr transdermal [...] PERITON ADHES POSTINFECTIVE] Onset: 07-08-2022 Episodic Other acquired deformities (2 sources) Contracture of joint of left ankle; Translations: [Contracture, left ankle] 04-03-2024 Chronic Other and unspecified benign neoplasm (1 source) Mature cystic teratoma of right ovary; Translations: [Benign neoplasm of right ovary] Episodic Other connective tissue disease (1 source) Pain in left foot; Translations: [Pain in left foot] Onset: 12-30-2023 Episodic Other connective tissue disease (2 sources) Peroneal tendinitis of left lower limb; Translations: [Peroneal tendinitis, left leg] 04-03-2024 Episodic Other connective tissue disease (2 sources) Enthesopathy of lower limb; Translations: [Other enthesopathy of left foot and ankle] 04-03-2024 Episodic Other nervous system disorders (1 source) Postoperative pain ; Translations: [Other acute postprocedural pain] Episodic Other non-traumatic joint disorders (2 sources) Instability of joint of left ankle; Translations: [Other instability, left ankle] 04-03-2024 Episodic Ovarian cyst (7 sources) Cyst of right ovary; Translations: [Unspecified ovarian cyst, right side] Onset: 06-16-2022 Episodic Sprains and strains (8 sources) Sprain of left foot; Translations: [Unspecified sprain of left foot, initial encounter] Onset: 02-20-2024 12-30-2023 Episodic Superficial injury; contusion (2 sources) Contusion of left foot; Translations: [Contusion of left foot, initial encounter] 04-03-2024 Episodic Unclassified (3 sources) CONTACT W/AND (SUSP) [...] Test Name Value Interpretation Reference Range Facility XR foot LT min 3V*on 024 XR foot LT min 3V* [facility] [address] XRay Report Signed Patient: Fadia Lan MR#: [id number] : 2000 Acct:[id number] Age/Sex: 23 / F ADM Date: 12/30/23 Loc: ER Room: Type: [facility] ER Attending Dr: Copies to: Karson Manzanares MD Ordering Provider: Karson Manzanares MD Date of Service: 12/30/23 XR/XR foot LT min 3V*: Extremity Injury, Lower ([id number]) XR/XR ankle LT min 3V*: Extremity Injury, Lower 3 views left ankle plain film COMPARISON: None HISTORY: Left foot injury ACUTE FINDINGS: None DEGENERATIVE CHANGE: Unremarkable SOFT TISSUE FINDINGS: Unremarkable JOINT EFFUSION: None POSTOP CHANGES: None BONE MINERALIZATION: Adequate XR/XR ankle LT min 3V* IMPRESSION: No acute findings. 3 views left foot. No acute fracture or dislocation. Unremarkable soft tissues. IMPRESSION: No acute findings Impression dictated by: Marc Owen M.D.12/30/2023 8:13 AM Dictation Location: [place] [address] Transcribed By: [facility] 12/30/23812 Dictated By: Marc Owen DO 12/30/23 0811 Signed By: 12/30/23812 Normal The [facility] CHLAMYDIA , NISSERIA, VAGINA LIS NAAon 08-19-2022 Chlamydia by HALLEY Negative Normal Negative [facility] Comment on above: Performed By: #### C TVNGNA ####[facility] [address] [place] [address]DrGrayson Severino Gonococcus by HALLEY Negative Normal Negative The [facility] Comment on above: Performed By: #### C TVNGNA ####[facility] [address] [place] [address]DrGrayson Severino Trich vag by HALLEY Negative Normal Negative [facility] Comment on above: Performed By: #### C TVNGNA ####[facility] [address] [place] [address]DrGrayson Severino CBC AUTO DIFFon 07-02-2022 BASO # 0.0 103/ul Normal 0.0-0.1 The [facility] Comment on above: Performed By: #### C BC #### [facility] [address] [place] [address] [address] Swapna Severino Basophils/100 WBC (Bld) 0.6 % Normal 0.2-2.0 [facility] Comment on above: Performed By: #### C BC #### [facility] [address] [place] [address] [address] Swapna Severino EO # 0.4 103/ul Normal 0.0-0.7 [facility] Comment on above: Performed By: #### C BC #### [facility] [address] [place] [address] Dr. Swapna Severino Eosinophils/100 WBC (Bld) 6.3 % Normal 0.9-7.0 [facility] Comment on above: Performed By: #### C BC #### [facility] [address] [place] [address] Dr. Swapna Severino Erythrocyte distribution width (RBC) [Ratio] 11.9 % Normal 11.0-15.0 [facility] Comment on above: Performed By: #### C BC #### [facility] [address] [place] [address] Dr. Swapna Severino Hematocrit (Bld) [Volume fraction] 39.8 % Normal 36.0-48.0 [facility] Comment on above: Performed By: #### C BC #### [facility] [address] [place] [address] Dr. Swapna Severino Hemoglobin (Bld) [Mass/Vol] 13.9 g/dL Normal 12.0-16.0 [facility] Comment on above: Performed By: #### C BC #### [facility] [address] [place] [address] Dr. Swapna Severino IG # 0.01 10e3/ul Normal 0.00-0.03 [facility] Comment on above: Performed By: #### C BC #### [facility] [address] [place] [address] Dr. Swapna Severino IG % 0.2 % Normal 0.0-0.5 [facility] Comment on above: Performed By: #### C BC #### [facility] [address] [place] [address] Dr. Swapna Severino LYMPH # 2.4 103/ul Normal 1.2-3.8 [facility] Comment on above: Performed By: #### C BC #### [facility] [address] [place] [address] Dr. Swapna Severino Lymphocytes/100 WBC (Bld) 37.4 % Normal 20.5-60.0 [facility] Comment on above: Performed By: #### C BC #### [facility] [address] [place] [address] Dr. Swapna Severino MANUAL DIFF REQ NO Normal [facility] Comment on above: Performed By: #### C BC #### [facility] [address] [place] [address] Dr. Swapna Severino MCH (RBC) [Entitic mass] 31.0 pg Normal 26.7-34.0 [facility] Comment on above: Performed By: #### C BC #### [facility] [address] [place] [address] Dr. Swapna Severino MCHC (RBC) [Mass/Vol] 34.9 g/dL Normal 29.9-35.2 [facility] Comment on above: Performed By: #### C BC #### [facility] [address] [place] [address] Dr. Swapna Severino MCV (RBC) [Entitic vol] 88.6 fL Normal 81.0-99.0 [facility] Comment on above: Performed By: #### C BC #### [facility] [address] [place] [address] Dr. Swapna Severino MONO # 0.6 103/ul Normal 0.3-0.8 [facility] Comment on above: Performed By: #### C BC #### [facility] [address] [place] [address] Dr. Swapna Severino Monocytes/100 WBC (Bld) 8.5 % Normal 1.7-12.0 [facility] Comment on above: Performed By: #### C BC #### [facility] [address] [address] [address] Swapna Severino NEUT # 3.1 103/ul Normal 1.4-6.5 [facility] Comment on above: Performed By: #### C BC #### [facility] [address] [address] [address] Swapna Severino Neutrophils/100 WBC (Bld) 47.0 % Normal 43.0-75.0 [facility] Comment on above: Performed By: #### C BC #### [facility] [address] [address] [address] Swapna Severino Platelet mean volume (Bld) [Entitic vol] 8.5 fL Critically low 9.5-13.5 [facility] Comment on above: Performed By: #### C BC #### [facility] [address] [place] [address] Dr. Swapna Severino PLT 363 103/ul Normal 150-450 [facility] Comment on above: Performed By: #### C BC #### [facility] [address] [place] [address] Dr. Swapna Severino RBC 4.49 106/ul Normal 4.20-5.40 [facility] Comment on above: Performed By: #### C BC #### [facility] [address] [place] [address] Dr. Swapna Severino WBC 6.5 103/ul Normal 4.0-11.0 [facility] Comment on above: Performed By: #### C BC #### [facility] [address] [address] [address] Swapna Severino CYTOLOGYon 07-02-2022 SENT TO REF LAB 07/02/[address] [facility] Comment on above: Performed By: #### C YTO ####[facility] [address] [place] [address]Dr. Swapna Severino PREG HCG QUALon 07-02-2022 , QUAL Negative Normal NEGATIVE [facility] Comment on above: Performed By: #### P REG #### [facility] [address] [place] [address] [address] [address] Swapna Severino [facility] 06-13 SARS-CoV-2 (COVID-19) RNA HALLEY+probe Ql (Unsp spec) Not detected Normal NOT DETECTED [facility] Comment on above: Result Comment: This test is not yet approved or cleared by the [place] FDA. When there are no FDA-approved or cleared tests available, and other criteria are met, FDA can make tests available under an emergency access mechanism called an Emergency Use Authorization (EUA). The EUA for this test is supported by the [place] of Health and Human Service's (HHS's) declaration [...] consistent with SARS-CoV-2. Performed By: #### C [facility] #### [facility] [address] [place] [address] Dr. Swapna Severino US PELVIS AND TRANSVAGon [...] SULY ANDERSON Date: 2022-06-17 07:48 Normal [facility] CBC AUTO DIFFon 06-11-2022 BASO # 0.0 103/ul Normal 0.0-0.1 [facility] Comment on above: Performed By: #### C BC #### [facility] [address] [place] [address] Dr. Swapna Severino Basophils/100 WBC (Bld) 0.5 % Normal 0.2-2.0 [facility] Comment on above: Performed By: #### C BC #### [facility] [address] [place] [address] Dr. Swapna Severino EO # 0.4 103/ul Normal 0.0-0.7 [facility] Comment on above: Performed By: #### C BC #### [facility] [address] [place] [address] Dr. Swapna Severino Eosinophils/100 WBC (Bld) 6.8 % Normal 0.9-7.0 [facility] Comment on above: Performed By: #### C BC #### [facility] [address] [place] [address] Dr. Swapna Severino Erythrocyte distribution width (RBC) [Ratio] 11.9 % Normal 11.0-15.0 [facility] Comment on above: Performed By: #### C BC #### [facility] [address] [place] [address] Dr. Swapna Severino Hematocrit (Bld) [Volume fraction] 38.0 % Normal 36.0-48.0 [facility] Comment on above: Performed By: #### C BC #### [facility] [address] [place] [address] Dr. Swapna Severino Hemoglobin (Bld) [Mass/Vol] 13.2 g/dL Normal 12.0-16.0 [facility] Comment on above: Performed By: #### C BC #### [facility] [address] [place] [address] Dr. Swapna Severino IG # 0.01 10e3/ul Normal 0.00-0.03 [facility] Comment on above: Performed By: #### C BC #### [facility] [address] [place] [address] Dr. Swapna Severino IG % 0.2 % Normal 0.0-0.5 [facility] Comment on above: Performed By: #### C BC #### [facility] [address] [place] [address] Dr. Swapna Severino LYMPH # 1.7 103/ul Normal 1.2-3.8 [facility] Comment on above: Performed By: #### C BC #### [facility] [address] [place] [address] Dr. Swapna Severino Lymphocytes/100 WBC (Bld) 26.9 % Normal 20.5-60.0 [facility] Comment on above: Performed By: #### C BC #### [facility] [address] [place] [address] Dr. Swapna Severino MANUAL DIFF REQ NO Normal [facility] Comment on above: Performed By: #### C BC #### [facility] [address] [place] [address] Dr. Swapna Severino MCH (RBC) [Entitic mass] 31.4 pg Normal 26.7-34.0 [facility] Comment on above: Performed By: #### C BC #### [facility] [address] [place] [address] Dr. Swapna Severino MCHC (RBC) [Mass/Vol] 34.7 g/dL Normal 29.9-35.2 [facility] Comment on above: Performed By: #### C BC #### [facility] [address] [place] [address] Dr. Swapna Severino MCV (RBC) [Entitic vol] 90.3 fL Normal 81.0-99.0 [facility] Comment on above: Performed By: #### C BC #### [facility] [address] [place] [address] Dr. Swapna Severino MONO # 0.5 103/ul Normal 0.3-0.8 [facility] Comment on above: Performed By: #### C BC #### [facility] [address] [address] [address] Swapna Severino Monocytes/100 WBC (Bld) 7.9 % Normal 1.7-12.0 [facility] Comment on above: Performed By: #### C BC #### [facility] [address] [address] [address] Swapna Severino NEUT # 3.6 103/ul Normal 1.4-6.5 [facility] Comment on above: Performed By: #### C BC #### [facility] [address] [place] [address] Dr. Swapna Severino Neutrophils/100 WBC (Bld) 57.7 % Normal 43.0-75.0 [facility] Comment on above: Performed By: #### C BC #### [facility] [address] [place] [address] Dr. Swapna Severino Platelet mean volume (Bld) [Entitic vol] 8.6 fL Critically low 9.5-13.5 [facility] Comment on above: Performed By: #### C BC #### [facility] [address] [place] [address] Dr. Swapna Severino PLT 333 103/ul Normal 150-450 [facility] Comment on above: Performed By: #### C BC #### [facility] [address] [place] [address] Dr. Swapna Severino RBC 4.21 106/ul Normal 4.20-5.40 [facility] Comment on above: Performed By: #### C BC #### [facility] [address] [place] [address] Dr. Swapna Severino WBC 6.2 103/ul Normal 4.0-11.0 [facility] Comment on above: Performed By: #### C BC #### [facility] [address] [place] [address] Dr. Swapna Severino ER URINE PROFILEon 2 Bilirubin Ql (U) Negative Normal NEGATIVE [facility] Comment on above: Performed By: #### P REGU, ERUR #### [facility] [address] [place] [address] Dr. Swapna Severino Clarity (U) CLEAR Normal CLEAR [facility] Comment on above: Performed By: #### P REGU, ERUR #### [facility] [address] [place] [address] Dr. Swapna Severino Color (U) LT. YELLOW Normal YELLOW [facility] Comment on above: Performed By: #### P REGU, ERUR #### [facility] [address] [place] [address] Dr. Swapna LEDEZMA A micrscopic examination will be performed if indicated. Normal [facility] Comment on above: Performed By: #### P REGU, ERUR #### [facility] [address] [place] [address] Dr. Swapna Severino Glucose Ql (U) Negative Normal NEGATIVE [facility] Comment on above: Performed By: #### P REGU, ERUR #### [facility] [address] [place] [address] Dr. Swapna Severino Hemoglobin Ql (U) Negative Normal NEGATIVE [facility] Comment on above: Performed By: #### P REGU, ERUR #### [facility] [address] [place] [address] Dr. Swapna Severino Ketones Ql (U) Negative Normal NEGATIVE [facility] Comment on above: Performed By: #### P REGU, ERUR #### [facility] [address] [address] [address] Swapna Severino LEUKOCYTES Negative Normal NEGATIVE [facility] Comment on above: Performed By: #### P REGU, ERUR #### [facility] [address] [address] [address] Swapna Severino Nitrite Ql (U) Negative Normal NEGATIVE [facility] Comment on above: Performed By: #### P REGU, ERUR #### [facility] [address] [place] [address] Dr. Swapna Severino pH (U) 6.5 [pH] Normal 5-9 [facility] Comment on above: Performed By: #### P REGU, ERUR #### [facility] [address] [address] [address] Swapna Severino SPEC GRAVITY 1.015 Normal 1.005-<=1.02 5 [facility] Comment on above: Performed By: #### P REGU, ERUR #### [facility] [address] [address] [address] Swapna Severino UA PROTEIN Negative Normal NEGATIVE/ TRACE [facility] Comment on above: Performed By: #### P REGU, ERUR #### [facility] [address] [address] [address] Swapna Severino UR MICRO IND NOT INDICATED Normal [facility] Comment on above: Performed By: #### P REGU, ERUR #### [facility] [address] [address] [address] Swapna Severino Urobilinogen Qn (U) 0.2 {Arpan'U}/dL Normal 0.2 - 1. 0 [facility] Comment on above: Performed By: #### P REGU, ERUR #### [facility] [address] [address] [address] Swapna Severino URon 06-11-2022 , QUAL Negative Normal NEGATIVE [facility] Comment on above: Performed By: #### P REGU, ERUR #### [facility] [address] [address] [address] Swapna Severino PROF CHEM 8 (BAS METB)on Anion gap [Moles/Vol] 9.2 mmol/L Normal [facility] Comment on above: Performed By: #### B MP ####[facility] [address] [place] [address]Dr. Swapna Severino Calcium [Mass/Vol] 8.7 mg/dL Normal 8.5-10.1 [facility] Comment on above: Performed By: #### B MP ####[facility] [address] [place] [address]Dr. Swapna Severino Chloride [Moles/Vol] 103 mmol/L Normal 98-107 [facility] Comment on above: Performed By: #### B MP ####[facility] [address] [place] [address]Dr. Swapna Severino CO2 [Moles/Vol] 31.1 mmol/L Normal 21.0-32.0 [facility] Comment on above: Performed By: #### B MP ####[facility] [address] [place] [address]Dr. Swapna Severino Creatinine [Mass/Vol] 0.55 mg/dL Normal 0.55-1.02 [facility] Comment on above: Performed By: #### B MP ####[facility] [address] [place], [place] [address]Dr. Blancaayala Maycol EGFR-AF GUAMANIAN >60 Normal >=60 [facility] Comment on above: Performed By: #### B MP ####[facility] [address] [place], [place] [address]Dr. Blancaayala Maycol EGFR-NON AF GUAMANIAN >60 Normal >=60 [facility] Comment on above: Performed By: #### B MP ####[facility] [address] [place], [place] [address]Dr. Swapna Maycol Glucose [Mass/Vol] 79 mg/dL Normal 74-106 [facility] Comment on above: Performed By: #### B MP ####[facility] [address] [place], [place] [address]Dr. Blancaayala Maycol Potassium [Moles/Vol] 4.3 mmol/L Normal 3.5-5.1 [facility] Comment on above: Performed By: #### B MP ####[facility] [address] [place], [place] [address]Dr. Blancaayala Severino Sodium [Moles/Vol] 139 mmol/L Normal 136-145 [facility] Comment on above: Performed By: #### B MP ####[facility] [id number] [place], [place] [address]Dr. Swapna Severino Urea nitrogen [Mass/Vol] 8.0 mg/dL Normal 7.0-18.0 [facility] Comment on above: Performed By: #### B MP ####[facility] [address] [place], [place] [address]Xx. Swapna Severino Urea nitrogen/Creatinine [Mass ratio] 14.5 mg/mg Normal [facility] Comment on above: Performed By: #### B MP ####[facility] [address] [place], [place] [address]Zl. Swapna Severino US PELVIS TRANSVAGon 022 US [...] by: KRISTEN HOFFMANN Date: 2022-06-11 12:44 Normal [facility] US PELVIS AND TRANSVAGon US PELVIS AND [...] by: KRISTEN HOFFMANN Date: 2022-05-11 14:02 Normal [facility] PAP ACOG PANEL 2: 21 to 29on 03-12-2022 . . Normal [facility] Comment on above: Performed By: #### [id number] #### [facility] [address] [place] [address] Dr. Swapna Severino Age Gdln ACOG Testing 21-29 [facility] Comment on above: Performed By: #### [id number] #### [facility] [address] [place] [address] Dr. Swapna Severino DIAGNOSIS: Comment Normal [facility] Comment on above: Result Comment: NEGA TIVE FOR INTRAEPITHELIAL LESION OR MALIGNANCY. Performed By: #### [id number] #### [facility] [address] [place] [address] Dr. Swapna Severino Methodology: Comment Normal [facility] Comment on above: Result Comment: This liquid based ThinPrep(R) pap test was screened with the use of an image guided system. Performed By: #### 4 [id number] #### [facility] [address] [place] [address] Dr. Swapna Severino Note: Comment [facility] Comment on above: Result Comment: The Pap smear is a screening test designed to aid in the detection of premalignant and malignant conditions of the uterine cervix. It is not a diagnostic procedure and should not be used as the sole means of detecting cervical cancer. Both false-positive and false-negative reports do occur. . Performed By: #### 4 [id number] #### [facility] [address] [place] [address] Dr. Swapna Severino Performed by: Comment [facility] Comment on above: Result Comment: Kathy Bland Welder [employer] Fitter (ASCP) Performed By: #### 4 [id number] #### [facility] [address] [place] [address] Dr. Swapna Severino Reflex Criteria: Comment [facility] Comment on above: Result Comment: The HPV DNA reflex criteria were not met with this specimen result therefore, no HPV testing was performed. . Performed By: #### 4 [id number] #### [facility] [address] [place] [address] Dr. Swapna Severino Specimen adequacy: Comment Normal [facility] Comment on above: Result Comment: Sati sfactory for evaluation. Endocervical and/or squamous metaplastic cells (endocervical component) are present. Performed By: #### 4 [id number] #### [facility] [address] [place], [place] [id number] Dr. Swapna Severino Covid-19 PCR ([facility])on SARS-CoV-2 (COVID-19) RNA HALLEY+probe Ql (Unsp spec) Detected Critically abnormal NOT DETECTED [facility] Comment on above: Result Comment: This test is not yet approved or cleared by the [place] FDA. When there are no FDA-approved or cleared tests available, and other criteria are met, FDA can make tests available under an emergency access mechanism called an Emergency Use Authorization (EUA). The EUA for this test is supported by the [place] of Health and Human Service's (HHS's) declaration [...] longer be used). Performed By: #### [facility] #### [facility] [address] [place] [address] [address] Swapna Severino CBC auto differentialOrdered By: Estuardo Carter on 10-10-2020 Absolute Eos # 0.19 [employer] [facility] Work Phone: Absolute Immature Granulocyte <0.03 [facility] Work Phone: Absolute Lymph # 1.98 [facility] Work Phone: Absolute [place] # 0.45 [facility] Work Phone: Basophils (Bld) [#/Vol] 0.03 10*3/uL [facility] Work Phone: Basophils/100 WBC (Bld) 1 % 0 - 2 % [facility] Work Phone: Differential Type NOT REPORTED [employer] Phone: Eosinophils/100 WBC (Bld) 3 % 1 - 4 % [employer] Phone: Hematocrit (Bld) [Volume fraction] 40.1 % 36.3 - 47.1 % [employer] Phone: Hemoglobin.gastrointest inal spec 1 Ql (Stl) 13.8 g/dL 11.9 - 15.1 g/dL [employer] Phone: Immature granulocytes/100 WBC (Bld) 0 % 0 [employer] Phone: Interpretation and review of laboratory results Abnormal [employer] Phone: Lymphocytes/100 WBC (Bld) 32 % 25 - 45 % [employer] Phone: MCH (RBC) [Entitic mass] 31.4 pg 25.2 - 33.5 pg [employer] Phone: MCHC (RBC) [Mass/Vol] 34.4 g/dL 28.4 - 34.8 g/dL [employer] Phone: MCV (RBC) [Entitic vol] 91.1 fL 82.6 - 102.9 fL [employer] Phone: Monocytes/100 WBC (Bld) 7 % 2 - 8 % [facility] Organization Phone: NRBC Automated 0.0 0.0 per 100 WBC [employer] Phone: Platelet distribution width (Bld) [Ratio] 11.4 % Low 11.8 - 14.4 % [employer] Phone: Platelet Estimate NOT REPORTED [employer] Phone: Platelet mean volume (Bld) [Entitic vol] 8.4 fL 8.1 - 13.5 fL [employer] Phone: Platelets (Bld) [#/Vol] 365 10*3/uL [facility] Work Phone: RBC (Bld) [#/Vol] 4.40 10*6/uL 3.95 - 5.1 1 m/uL [facility] Work Phone: RBC (Bld) [#/Vol] NOT REPORTED [facility] Work Phone: Segmented neutrophils/100 WBC (Bld) 57 % 34 - 64 % [employer] Work Phone: Segs Absolute 3.56 [facility] [employer] Work Phone: WBC (Bld) [#/Vol] 6.2 10*3/uL [facility] Work Phone: WBC (Bld) [#/Vol] NOT REPORTED [facility] Organization Phone: CBC with Diffon 10-10-2020 Abs. Basophil 0.03 k/uL Normal 0.00-0.[address] [facility] Comment on above: Performed By: #### S ED, CDP, CP, HCG #### [facility] [address] [place] [address] [place] [address] [employer] Machine Operator Helper: Kristen Howe MD Abs.Imm.Granulocyte <0.03 Normal 0.00-0.30 [facility] Comment on above: Performed By: #### S ED, CDP, CP, HCG #### [address] [place], [place] [id number] [employer] Helper: Kristen Howe MD Abs.Neutrophil (Seg) 3.56 k/uL Normal 1.80-8.00 [facility] Comment on above: Performed By: #### S ED, CDP, CP, HCG #### [address] [place] [address] [employer] Operator Helper: Kristen Howe MD Basophils/100 WBC (Bld) 1 % Normal 0-2 M [facility] Comment on above: Performed By: #### S ED, CDP, CP, HCG #### [address] [place], [facility] [employer] Helper: Kristen Howe MD Eosinophils (Bld) [#/Vol] 0.19 10*3/uL Normal 0.00-0.44 [facility] Comment on above: Performed By: #### S ED, CDP, CP, HCG #### [address] [place], [place] [address] [employer] Operator Helper: Kristen Howe MD Eosinophils/100 WBC (Bld) 3 % Normal 1-4 [facility] Comment on above: Performed By: #### S ED, CDP, CP, HCG #### [address] [place], [facility] [employer] Helper: Kristen Howe MD Erythrocyte distribution width (RBC) [Ratio] 11.4 % Low 11.8-14.4 [facility] Comment on above: Performed By: #### S ED, CDP, CP, HCG #### [address] [place], [place] [address] [employer] Operator Helper: Kristen Howe MD Hematocrit (Bld) [Volume fraction] 40.1 % Normal 36.3-47.1 [facility] Comment on above: Performed By: #### S ED, CDP, CP, HCG #### [address] [place], [place] [address] [employer] Operator Helper: Kristen Howe MD Hemoglobin (Bld) [Mass/Vol] 13.8 g/dL Normal 11.9-15.1 [facility] Comment on above: Performed By: #### S ED, CDP, CP, HCG #### [address] [place], [facility] [employer] Operator Helper: Kristen Howe MD Immature granulocytes/100 WBC (Bld) 0 % Normal 0 [facility] Comment on above: Performed By: #### S ED, CDP, CP, HCG #### [facility] [address] [place], [place] [id number] [employer] Machine Operator Helper: Kristen Howe MD Lymphocytes (Bld) [#/Vol] 1.98 10*3/uL Normal 1.20-5.20 [facility] Comment on above: Performed By: #### S ED, CDP, CP, HCG #### [address] [place], [facility] [employer] Operator Helper: Kristen Howe MD Lymphocytes/100 WBC (Bld) 32 % Normal 25-45 [facility] Comment on above: Performed By: #### S ED, CDP, CP, HCG #### [address] [place], [facility] [employer] Operator Helper: Kristen Howe MD MCH (RBC) [Entitic mass] 31.4 pg Normal 25.2-33.5 [facility] Comment on above: Performed By: #### S ED, CDP, CP, HCG #### [address] [place], [place] [id number] [employer] Operator Helper: Kristen Howe MD MCHC (RBC) [Mass/Vol] 34.4 g/dL Normal 28.4-34.8 [facility] Comment on above: Performed By: #### S ED, CDP, CP, HCG #### [address] [place], [facility] [employer] Operator Helper: Kristen Howe MD MCV (RBC) [Entitic vol] 91.1 fL Normal 82.6-102.9 M [facility] Comment on above: Performed By: #### S ED, CDP, CP, HCG #### [address] [place], [place] [id number] [employer] Operator Helper: Kristen Howe MD Monocytes (Bld) [#/Vol] 0.45 10*3/uL Normal 0.10-1.40 [facility] Comment on above: Performed By: #### S ED, CDP, CP, HCG #### [facility] [address] [place], [place] [id number] [employer] Operator Helper: Kristen Howe MD Monocytes/100 WBC (Bld) 7 % Normal 2-8 M [facility] Comment on above: Performed By: #### S ED, CDP, CP, HCG #### [facility] [address] [place], [facility] [employer] Operator Helper: Kristen Howe MD Neutrophil (Seg) 57 % Normal 34-64 [facility] Comment on above: Performed By: #### S ED, CDP, CP, HCG #### [address] [place], [facility] [employer] Operator Helper: Kristen Howe MD NRBC Automated 0.0 per 100 WBC Normal 0.0 [facility] Comment on above: Performed By: #### S ED, CDP, CP, HCG #### [address] [place], [facility] [employer] Operator Helper: Kristen Howe MD Platelet mean volume (Bld) [Entitic vol] 8.4 fL Normal 8.1-13.5 [facility] Comment on above: Performed By: #### S ED, CDP, CP, HCG #### [address] [place], [place] [address] [employer] Machine Operator Helper: Kristen Howe MD Platelets (Bld) [#/Vol] 365 10*3/uL Normal 138-453 [facility] Comment on above: Performed By: #### S ED, CDP, CP, HCG #### [address] [place], [place] [id number] [employer] Machine Operator Helper: Kristen Howe MD RBC (Bld) [#/Vol] 4.40 10*6/uL Normal 3.95-5.11 [facility] Comment on above: Performed By: #### S ED, CDP, CP, HCG #### [facility] [address] [place] [address] [place] [address] [employer] Machine Operator Helper: Kristen Howe MD WBC (Bld) [#/Vol] 6.2 10*3/uL Normal 4.5-13.5 [facility] Comment on above: Performed By: #### S ED, CDP, CP, HCG #### [address] [place] [address] [employer]wall Machine Operator Helper: Kristen Howe MD Auto Diff Performed NOT REPORTED Normal [facility] Comment on above: Performed By: #### S ED, CDP, CP, HCG #### [address] [place] [address] [employer]wall Machine Operator Helper: Kristen Howe MD Platelet Estimate NOT REPORTED Normal [facility] Comment on above: Performed By: #### S ED, CDP, CP, HCG #### [address] [place] [address] [employer] Machine Operator Helper: Kristen Howe MD RBC morphology finding Nom (Bld) NOT REPORTED Normal [facility] Comment on above: Performed By: #### S ED, CDP, CP, HCG #### [address] [place] [address] [employer]wall Machine Operator Helper: Kristen Howe MD WBC Morphology NOT REPORTED Normal [facility] Comment on above: Performed By: #### S ED, CDP, CP, HCG #### [address] [place] [address] [employer]wall Machine Operator Helper: Kristen Howe MD CT ABDOMEN PELVIS W [...] Charles Virgen MD 10/10/20 Final result Normal [facility] CT ABDOMEN PELVIS W IV CONTR AST Additional Contrast? 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 This results in compressive affects on the right ureter and mild hydronephrosis. Follow-up with gynecology is recommended due to the large size of this mass and associated compressive affects. [facility] [employer] Work Phone: EXAMINATION: CT OF THE ABDOMEN AND [...] No lymphadenopathy. Bones/Soft Tissues: No abnormality identified. [employer] Work Phone: [place], [facility] Incoming Radiant Results From [employer] - 10/10/2020 3:13 PM EDT EXAMINATION: CT [...] of this mass and associated compressive affects. [facility] Work Phone: Comp Metabolic Profon 2020 (cont.) Normal [facility] Comment on above: Result Comment: Aver age GFR for 20-29 years old: 116 mL/min/1.73sq m Chronic Kidney Disease: <60 mL/min/1.73sq m Kidney failure: <15 mL/min/1.73sq m eGFR calculated using average adult body mass. Additional eGFR calculator available at: http://www.Misohoni.Well Done/multiple_crcl_2012.htm Performed By: #### S SHILPA BRYANT, PETAR, HCG #### [facility] [address] [place] [address] [employer]wall Machine Operator Helper: Kristen Howe MD Albumin [Mass/Vol] 4.5 g/dL Normal 3.5-5.2 [facility] Comment on above: Performed By: #### S SHILPA BRYANT, CP, HCG #### [facility] [address] [place] [address] [employer]wall Machine Operator Helper: Kristen Howe MD Albumin/Glob Ratio 2.0 Normal 1.0-2.5 [facility] Comment on above: Performed By: #### S ED, CDP, CP, HCG #### [facility] [address] [place], [place] [phone] [employer] Machine Operator Helper: Kristen Howe MD Alkaline Phos 62 U/L Normal 35-[address] [facility] Comment on above: Performed By: #### S ED, CDP, CP, HCG #### [facility] [address] [place] [address] [employer]wall Machine Operator Helper: Kristen Howe MD ALT [Catalytic activity/Vol] 9 U/L Normal 5-33 [facility] Comment on above: Performed By: #### S ED, CDP, CP, HCG #### [address] [place] [address] [employer]wall Machine Operator Helper: Kristen Hoew MD Anion gap [Moles/Vol] 7 mmol/L Low 9-17 [facility] Comment on above: Performed By: #### S ED, CDP, CP, HCG #### [facility] [address] [place] [address] Dr. [place], [place] [id number] [employer] Machine Operator Helper: Kristen Howe MD AST [Catalytic activity/Vol] 16 U/L Normal <32 [facility] Comment on above: Performed By: #### S ED, CDP, CP, HCG #### [address] [place], [place] [id number] [employer] Machine Operator Helper: Kristen Howe MD Bilirubin [Mass/Vol] 0.52 mg/dL Normal 0.3-1.2 [facility] Comment on above: Performed By: #### S ED, CDP, CP, HCG #### [facility] [address] [place] [address] Dr. [place], [place] [id number] [employer] Machine Operator Helper: Kristen Howe MD BUN/CRE Ratio 13 Normal 9-[address] [facility] Comment on above: Performed By: #### S ED, CDP, CP, HCG #### [facility] [address] [place] [address] Dr. [place], [place] [id number] [employer] Machine Operator Helper: Kristen Howe MD Calcium [Mass/Vol] 9.8 mg/dL Normal 8.6-10.4 [facility] Comment on above: Performed By: #### S ED, CDP, CP, HCG #### [facility] [address] [place], [place] [phone] [employer] Machine Operator Helper: Kristen Howe MD Chloride [Moles/Vol] 102 mmol/L Normal 98-107 [facility] Comment on above: Performed By: #### S ED, CDP, CP, HCG #### [facility] [address] [place], [place] [phone] [employer] Machine Operator Helper: Kristen Howe MD CO2 [Moles/Vol] 31 mmol/L Normal 20-31 [facility] Comment on above: Performed By: #### S ED, CDP, CP, HCG #### [facility] [address] [place], [place] [phone] [employer] Machine Operator Helper: Kristen Howe MD Creatinine [Mass/Vol] 0.64 mg/dL Normal 0.50-0.90 [facility] Comment on above: Performed By: #### S ED, CDP, CP, HCG #### [facility] [address] [place], [place] [phone] [employer] Machine Operator Helper: Kristen Howe MD GFR, Amer >60 Normal >60 [facility] Comment on above: Performed By: #### S ED, CDP, CP, HCG #### [facility] [address] [place], [place] [phone] [employer] Machine Operator Helper: Kristen Howe MD GFR,non Amer >60 Normal >60 [facility] Comment on above: Performed By: #### S ED, CDP, CP, HCG #### [facility] [address] [place], [place] [phone] [employer] Machine Operator Helper: Kristen Howe MD Glucose [Mass/Vol] 94 mg/dL Normal 70-99 [facility] Comment on above: Performed By: #### S ED, CDP, CP, HCG #### [facility] [address] [place], [place] [phone] [employer] Machine Operator Helper: Kristen Howe MD Potassium [Moles/Vol] 3.5 mmol/L Low 3.7-5.3 [facility] Comment on above: Performed By: #### S ED, CDP, CP, HCG #### [facility] [address] [place], [place] [phone] [employer] Machine Operator Helper: Kristen Howe MD Protein [Mass/Vol] 6.8 g/dL Normal 6.4-8.3 [facility] Comment on above: Performed By: #### S ED, CDP, CP, HCG #### [address] [place], [place] [phone] [employer] Machine Operator Helper: Kristen Howe MD Sodium [Moles/Vol] 140 mmol/L Normal 135-144 [facility] Comment on above: Performed By: #### S ED, CDP, CP, HCG #### [address] [place], [place] [address]83 [employer]wall Machine Operator Helper: Kristen Howe MD Staging: Normal [facility] Comment on above: Result Comment: Stag e 1: Some kidney damage normal GFR Stage 2: Mild kidney damage GFR 60-89 Stage 3: Moderate kidney damage GFR 30-59 Stage 4: Severe kidney damage GFR 15-29 Stage 5: Severe kidney damage GFR <15 ESRD - chronic treatment by dialysis or transplant Performed By: #### S ED, CDP, CP, HCG #### [facility] [address] [place], [place] [phone] [employer] Machine Operator Helper: Kristen Howe MD Urea nitrogen [Mass/Vol] 8 mg/dL Normal 6-20 [facility] Comment on above: Performed By: #### S ED, CDP, CP, HCG #### [facility] [address] [place], [place] [phone] [employer]wall Machine Operator Helper: Kristen Howe MD Comprehensive Metabolic Pane lOrdered By: Estuardo Carter on 10-10-2020 Albumin [Mass/Vol] 4.5 g/dL 3.5 - 5.2 g/dL [employer] Phone: Albumin/Globulin [Mass ratio] 2.0 {ratio} [employer] Phone: ALP (Bld) [Catalytic activity/Vol] 62 U/L 35 - 104 U/L [employer] Phone: ALT [Catalytic activity/Vol] 9 U/L 5 - 33 U/L [employer] Phone: Anion gap [Moles/Vol] 7 mmol/L Low 9 - 17 mmol/L [employer] Phone: AST [Catalytic activity/Vol] 16 U/L <32 [employer] Phone: Bilirubin [Mass/Vol] 0.52 mg/dL 0.3 - 1 .2 mg/dL [employer] Phone: Calcium [Mass/Vol] 9.8 mg/dL 8.6 - 10. 4 mg/dL [employer] Phone: Chloride [Moles/Vol] 102 mmol/L 98 - 10 7 mmol/L [employer] Phone: CO2 [Moles/Vol] 31 mmol/L 20 - 31 mmol/L [employer] Phone: Creatinine [Mass/Vol] 0.64 mg/dL 0.50 - 0.90 mg/dL [employer] Phone: Free PSA/Total PSA [Mass fraction] 6.8 g/dL 6.4 - 8.3 g/dL [employer] Phone: GFR >60 >60 mL/min [employer] Phone: GFR Non- >60 >60 mL/min [employer] Phone: Glucose [Mass/Vol] 94 mg/dL 70 - 99 mg/dL [employer] Phone: Interpretation and review of laboratory results Abnormal [employer] Phone: Potassium [Moles/Vol] 3.5 mmol/L Low 3.7 - 5.3 mmol/L [employer] Phone: Sodium [Moles/Vol] 140 mmol/L 135 - 144 mmol/L [employer] Phone: Urea nitrogen (BldV) [Mass/Vol] 8 mg/dL 6 - 20 mg/dL [employer] Phone: Urea nitrogen/Creatinine (Bld) [Mass ratio] 13 [employer] Phone: HCG Qualitative, SerumOrdere d By: Estuardo Carter on 10-10-2020 hCG Qual Negative NEGATIVE [employer] Phone: Comment on above: Specimens with hCG l evels near the threshold of the test (25 mIU/mL) may give a negative or indeterminate result. In such cases, another test should be performed with a new specimen in 48-72 hours. If early is suspected clinically in this setting, correlation with quantitative serum b-hCG level is suggested. The [employer] has confirmed the use of plasma for this test. This has not been cleared or approved by the U.S. Food and Drug Administration. The FDA has determined that such clearance is not necessary. HCG Screen, Bloodon 10-11-19 21 HCG Screen, Blood Negative Normal NEG [facility] Comment on above: Result Comment: Spec imens with hCG levels near the threshold of the test (25 mIU/mL) may give a negative or indeterminate result. In such cases, another test should be performed with a new specimen in 48-72 hours. If early is suspected clinically in this setting, correlation with quantitative serum b-hCG level is suggested. The [employer] has confirmed the use of plasma for this test. This has not been cleared or approved by the U.S. Food and Drug Administration. The FDA has determined that such clearance is not necessary. Performed By: #### S ED, CDP, CP, HCG #### [facility] [address] [place] [address] [employer]wall Machine Operator Helper: Kristen Howe MD Laboratory - Chemistry and C hemistry - challengeOrdered By: Estuardo Carter on 10-10-2020 GFR/1.73 sq M.predicted MDRD (S/P/Bld) [Vol rate/Area] [facility] Work Phone: Comment on above: Average GFR for 20-2 9 years old: 116 mL/min/1.73sq m Chronic Kidney Disease: <60 mL/min/1.73sq m Kidney failure: <15 mL/min/1.73sq m eGFR calculated using average adult body mass. Additional eGFR calculator available at: http://www.[employer]less [employer]z/multiple_crcl_2012.htm Stage 1: Some kidney damage normal GFR Stage 2: Mild kidney damage GFR 60-89 Stage 3: Moderate kidney damage GFR 30-59 Stage 4: Severe kidney damage GFR 15-29 Stage 5: Severe kidney damage GFR <15 ESRD - chronic treatment by dialysis or transplant Microscopic UrinalysisOrdere d By: Estuardo Carter on 10-10-2020 - [employer] Work Phone: Amorphous, UA NOT REPORTED None [facility] Work Phone: Bacteria, UA NOT REPORTED None [facility] Work Phone: Casts UA NOT REPORTED /LPF [facility] Work Phone: Crystals, UA NOT REPORTED None /HPF [facility] Work Phone: Epithelial Cells UA 0 TO 2 [facility] Work Phone: Mucus, UA NOT REPORTED None [facility] Work Phone: Other Observations UA NOT REPORTED NOT REQ. [facility] Work Phone: RBC, UA 20 TO 50 [facility] Work Phone: Renal Epithelial, UA NOT REPORTED 0 /HPF Me [facility]cy [employer] Work Phone: Trichomonas, UA NOT REPORTED None [facility] Work Phone: WBC, UA 0 TO 2 [facility] Work Phone: Yeast, UA NOT REPORTED None [facility] [employer] Work Phone: Sedimentation Rateon 021 Sedimentation Rate 3 mm Normal 0-20 [facility] Comment on above: Performed By: #### S ED, CDP, CP, HCG #### [facility] [address] [place] [address] Longwall Machine Operator Helper: Kristen Howe MD Sedimentation RateOrdered By : Estuardo Carter on 10-10-2020 Sed Rate 3 mm 0 - 20 mm [facility] [employer] Phone: Surgical Pathologyon 021 Surgical Pathology (NOTE) -- Diagnosis -- RIGHT OVARY, OOPHORECTOMY:- BENIGN DERMOID CYST (MATURE CYSTIC TERATOMA), MULTIPLE PIECES.- SEE MICROSCOPIC DESCRIPTION. Greyson Alan, Electronically Signed Out /10/14/2020 Clinical Information Pre-op Diagnosis: DERMOID CYST Operative [...] lining, is a 0.5 cm papillary focus. Petrology Teacher sections 4cs with papillary focus included in [...] identified SURGICAL PATHOLOGY CONSULTATION Patient Name: FADIA LAN [facility] Rec: [id number] Path Number: [id number] [facility] ANATOMIC PATHOLOGY [address] [place] [phone] Normal [facility] Comment on above: Performed By: #### P PPVS #### [address] [address] Longwall Machine Operator Helper: Ottoniel Hyde MD UA w/Reflex Cultureon 2020 Acetoacetic Acid,Ur Negative Normal NEG [facility] Comment on above: Performed By: #### U MICAO, UAX #### [facility] [address] [place] [address] [place] [address] Longwall Machine Operator Helper: Kristen Howe MD Bilirubin, SemiQt,Ur Negative Normal NEG [facility] Comment on above: Performed By: #### U MICAO, UAX #### [address] [place] [address] Longwall Machine Operator Helper: Kristen Howe MD Color (U) YELLOW Normal YEL [facility] Comment on above: Performed By: #### U MICAO, UAX #### [address] [place] [address] Longwall Machine Operator Helper: Kristen Howe MD Glucose Ql (U) Negative Normal NEG [facility] Comment on above: Performed By: #### U MICAO, UAX #### [address] [place] [address] Longwall Machine Operator Helper: Kristen Howe MD Hemoglobin, Ur 3+ Abnormal NEG [facility] Comment on above: Performed By: #### U MICAO, UAX #### [address] [place] [address] Longwall Machine Operator Helper: Kristen Howe MD Leukocyte esterase Test strip Ql (U) Negative Normal NEG [facility] Comment on above: Performed By: #### U MICAO, UAX #### [facility] [address] [place] [address] Dr[address] [place], [place] [id number] Longwall Machine Operator Helper: Kristen Howe MD Nitrite,Ur Negative Normal NEG [facility] Comment on above: Performed By: #### U MICAO, UAX #### [facility] [address] [place] [address] Dr[address] [place], [place] [id number] Longwall Machine Operator Helper: Kristen Howe MD PH,Ur 6.0 Normal 5.0-9.0 [facility] Comment on above: Performed By: #### U MICAO, UAX #### [address] [place], [facility] Longwall Machine Operator Helper: Kristen Howe MD Protein Ql (U) TRACE Abnormal NEG [facility] Comment on above: Performed By: #### U MICAO, UAX #### [address] [place], [place] [id number] Longwall Machine Operator Helper: Kristen Howe MD Spec. [place],Ur 1.025 High 1.010-1.020 [facility] Comment on above: Performed By: #### U MICAO, UAX #### [facility] [address] [place] [address] Dr[address] [place], [place] [address]783 Longwall Machine Operator Helper: Kristen Howe MD Turbidity CLEAR Normal CLEAR [facility] Comment on above: Performed By: #### U MICAO, UAX #### [address] [place], [place] [id number] Longwall Machine Operator Helper: Kristen Howe MD Urobilinogen,Ur Normal Normal NORM [facility] Comment on above: Performed By: #### U MICAO, UAX #### [facility] [address] [place] [address] [place] [address] Longwall Machine Operator Helper: Kristen Howe MD Comment NOT REPORTED Normal [facility] Comment on above: Performed By: #### U MICAO, UAX #### [facility] [address] [place] [address] Longwall Machine Operator Helper: Kristen Howe MD Urinalysis Reflex to Culture Ordered By: Estuardo Carter on 10-10-2020 Bilirubin Urine Negative NEGATIVE [facility] Work Phone: Color, UA YELLOW YELLOW [facility] Work Phone: Glucose, Ur Negative NEGATIVE [facility] Work Phone: Interpretation and review of laboratory results Abnormal [facility] Work Phone: Ketones Ql (U) Negative NEGATIVE [facility] Work Phone: Leukocyte esterase Test strip Ql (U) Negative NEGATIVE [facility] Work Phone: Nitrite, Urine Negative NEGATIVE [facility] Work Phone: pH, UA 6.0 [facility] Work Phone: Protein, UA TRACE Abnormal NEGATIVE [facility] Work Phone: Specific [place], UA 1.025 High [facility] Work Phone: Turbidity UA CLEAR CLEAR [facility] Work Phone: Urinalysis Comments NOT REPORTED [facility] Work Phone: Urine Hgb 3+ Abnormal NEGATIVE [facility] Work Phone: Urobilinogen, Urine Normal Normal [facility] Work Phone: Urinalysis,Microon 1 ----- Normal [facility] Comment on above: Performed By: #### U MICAO, UAX #### [facility] [address] [place] [address] Longwall Machine Operator Helper: Kristen Howe MD Epithelial cells LM Ql (Urine sed) 0 TO 2 Normal 0-25 [facility] Comment on above: Performed By: #### U MICAO, UAX #### [facility] [address] [place], [place] [address]83 Longwall Machine Operator Helper: Kristen Howe MD Urine RBC's 20 TO 50 Normal 0-2 [facility] Comment on above: Performed By: #### U MICAO, UAX #### [facility] [address] [place], [place] [id number] Longwall Machine Operator Helper: Kristen Howe MD Urine WBC's 0 TO 2 Normal 0-5 [facility] Comment on above: Performed By: #### U MICAO, UAX #### [facility] [address] [place] [id number] Longwall Machine Operator Helper: Kristen Howe MD Amorphous sediment LM Ql (Urine sed) NOT REPORTED Normal [facility] Comment on above: Performed By: #### U MICAO, UAX #### [facility] [address] [place], [facility] Longwall Machine Operator Helper: Kristen Howe MD Bacteria NOT REPORTED Normal [facility] Comment on above: Performed By: #### U MICAO, UAX #### [facility] [address] [place], [facility] Longwall Machine Operator Helper: Kristen Howe MD Casts NOT REPORTED Normal [facility] Comment on above: Performed By: #### U MICAO, UAX #### [facility] [address] [place], [facility] Longwall Machine Operator Helper: Kristen Howe MD Crystals LM Nom (Urine sed) NOT REPORTED Normal [facility] Comment on above: Performed By: #### U MICAO, UAX #### [facility] [address] [place], [facility] Longwall Machine Operator Helper: Kristen Howe MD Epithelial, Renal NOT REPORTED Normal 0 [facility] Comment on above: Performed By: #### U FANYO, UAX #### [facility] [address] [place], [place] [phone] Longwall Machine Operator Helper: Kristen Howe MD Mucus Strands NOT REPORTED Normal NONE [facility] Comment on above: Performed By: #### U MICAO, UAX #### [facility] [address] [place], [place] [address]83 Longwall Machine Operator Helper: Kristen Howe MD Other Observations NOT REPORTED Normal NREQ [facility] Comment on above: Performed By: #### U MICAO, UAX #### [facility] [address] [place], [place] [id number] Longwall Machine Operator Helper: Kristen Howe MD Trichomonas NOT REPORTED Normal NONE [facility] Comment on above: Performed By: #### U FANYO, UAX #### [facility] [address] [place], [place] [id number] Longwall Machine Operator Helper: Kristen Howe MD Yeast NOT REPORTED Normal NONE [facility] Comment on above: Performed By: #### U FANYO, UAX #### [facility] [address] [place], [place] [id number] Longwall Machine Operator Helper: MD ART MahoneyOon 06-29-2019 CNCO Letter Text Normal [facility] CNOVon 06-29-2019 CNOV Office Visit (SYNCMN ) FADIA LAN ([id number]) 1 F Date Time Provider Department 06/29/19 2:45 PM CELESTE WEISS SYNCMN During your visit today, we recorded the following information about you: Weight Height 53.3 kg 1.676 m Celeste Weiss Jr, DO, DO 07/06/2019 8:58 AM Signed [facility] [place] [facility] Department of Cardiovascular Medicine SECTION OF CARDIAC PACING and ELECTROPHYSIOLOGY OUTPATIENT VISIT DATE June 29, 2019 OUTPATIENT VISIT TYPE NEW PRIMARY CARE PHYSICIAN: Danilo Dinero MD [address] [place] [id number] REFERRING PHYSICIAN: Danilo Dinero MD [address] [facility] [address] . NURSING INTAKE HISTORY: Fadia Lan is [...] extensive local evaluation including assessment at the [facility] electrophysiology autonomic laboratory by Dr. pierson, tilt table testing, multiple drug trials, but continues to have events. My findings, recommendations, and plan of care will be added to the electronic medical record and forwarded to the [facility] physicians by agencyQ and to the patient and the local [...] the medical intensive care unit of the [facility]. She underwent extensive evaluation including repeat troponins, [...] reduction. 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 Love WIND PROJECT MANAGER states that there was a borderline increase [...] signs. EKG reveals normal sinus rhythm, normal TN and QRS intervals, no evidence of long [...] suggestions. This note was partially generated using Dragon voice recognition system, and there may be some incorrect words, spellings, and punctuation that were not noted in checking the note before saving. Homer Weiss DO CC: Shanae Morales pt Josi Weeks [phone] (Work) [address] [place] [phone] Nurse Practitioner León [facility] [address] [place] [phone] [facility] Ousmane [facility] Referring Provider: DANILO DINERO [[id number]] Allergies As of Date: 06/29/2019 (No Known Allergies) Date Reviewed: 06/29/2019 Reviewed by: Celeste Weiss DO - Fully Assessed Primary Visit Diagnosis:Syncope and collapse [R55] Other Visit Diagnoses:Near syncope [R55] Chest pain, unspecified type [R07.9] Orthostatic lightheadedness [R42] Order(s):OUTSIDE VENDOR CARDIAC OUTPATIENT TELEMETRY [] Order #: [id number]: 1 EPIL EEG LONG [[id number]] Order #: [id number]: 1 FUTURE Prescriptions as of 06/29/2019 Sig: [...] by CELESTE WEISS DO on 07/06/19 Normal [facility] CNOV Office Visit (NE50MN ) FADIA LAN ([id number]) 1 F Date Time Provider Department 06/29/19 11:00 AM OUSMANE GAMBOA NE50MN During your visit today, we recorded the following information about you: Pulse Blood pressure Weight 76/minute 96/60 54.9 kg Ousmane Gamboa MD PhD 07/11/2019 2:46 PM Signed .[facility] Neurological [facility] Patient Name: Fadia Lan Date [...] out but she was caught by a merchant police, she has LOC of unknown duration. 30 mins later, mother came to school, the patient was confused, slurred speech, she looked pale. She was admitted to a local hospital, some elevation of troponin. One week later, she had a similar episodes at school, she had SOB, hands trembling, she thought she was hungary, she went to [place], she started to drove home, somehow, she [...] 3 day-EEG on 05/18/2019 after she left [facility]. She had a mild spells [...] She was diagnosed of having POTs in [place] in Mar. Psychosocial: No depression, no anxiety. [...] tend to occur in the evenings or access manager (3AM-5AM- per mother she is awake prior [...] her to local ED, then transferred to [facility] MICU for further management. Prior [...] high school and quit her job at [employer] due to episodes. ? Impression/Recommenda tions This [...] with prolonged EEG monitoring. Brain Tumor NA SYSTEMS ADMINISTRATION ANALYST Infections NA Developmental Delay NA Family history [...] had BEM recording for several days at [facility] in May 2019 with normal EEG. 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 Fadia Lan [address] [address] Referring Provider: SELF [[id number]] Allergies As of [...] troponin [R79.89] 05/13/2019 More... Encounter Status:Closed by COMFORT LNYCH, OUSMANE PHD on 07/11/19 Normal [facility] ECG COMPLETEon 06-29-2019 ECG COMPLETE NAME : FADIA LAN PID : [id number] : 2000 Gender : Female Race : ORD : [id number] Procedure Date : Jun 29 2019 13:19:31 Edit Date : Jul 02 2019 13:58:19 Diagnosis:NORMAL SINUS RHYTHM NORMAL ECG Confirmed by OLIVIER RUBIO M.D. ([id number]) on 07/02/2019 1:55:40 PM Ventricular Rate : 75 BPM Atrial Rate : 75 BPM P-R Interval : 140 ms QRS Duration : 94 ms Q-T Interval : 392 ms QTC Calculation(Bazett) : 437 ms P [place] : 65 degrees R [place] : 62 degrees T [place] : 35 degrees Test Reason : Location : 314 : J14 Overread By : OLIVEIR RUBIO M.D. Edited By : OLIVIER RUBIO M.D. Referred By : CELESTE WEISS Acquired by : KEVIN MANZANARES [facility] OBSOLETEon 06-29-2019 OBSOLETE Procedure (NEAU) RIKYFADIA ([id number]) 1 F Date Time Provider Department 06/29/19 [...] by MARIA R GARCIA DO on 06/29/19 [facility] PROCEDUREon 06-29-2019 PROCEDURE HNO ID: [id number] Author: Celeste Weiss DO Service: ? Author [...] were frequent automatic events showing sinus tachycardia. eCleste Weiss Jr, DO [facility] Name: FADIA LAN : 2000 Ordering provider: CELESTE WEISS Indication: R55 Syncope and collapse Type of monitor: Continuous Telemetry Enrollment dates: 07/11/2019 - 07/31/2019 [facility] PROGRESSon 06-29-2019 PROGRESS HNO ID: [id number] Author: Celeste Weiss, DO Service: ? Author Type: Physician Type: Progress Notes Filed: 07/06/2019 8:58 AM Note Text: [facility] [place] [facility] Department of Cardiovascular Medicine SECTION OF CARDIAC PACING and ELECTROPHYSIOLOGY OUTPATIENT VISIT DATE June 29, 2019 OUTPATIENT VISIT TYPE NEW PRIMARY CARE PHYSICIAN: Danilo Dinero MD [address] [place] [address] REFERRING PHYSICIAN: Danilo Dinero MD [address] [facility] [address] . NURSING INTAKE HISTORY: Fadia Lan is [...] extensive local evaluation including assessment at the [facility] electrophysiology autonomic laboratory by Dr. pierson, tilt table testing, multiple drug trials, but continues to have events. My findings, recommendations, and plan of care will be added to the electronic medical record and forwarded to the [facility] physicians by agencyQ and to the patient and the local [...] the medical intensive care unit of the [facility]. She underwent extensive evaluation including repeat troponins, [...] reduction. 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 Love WIND PROJECT MANAGER states that there was a borderline increase [...] signs. EKG reveals normal sinus rhythm, normal TN and QRS intervals, no evidence of long [...] suggestions. This note was partially generated using Dragon voice recognition system, and there may be some incorrect words, spellings, and punctuation that were not noted in checking the note before saving. Homer Weiss DO CC: Shanae Morales pt Josi Etienneshaun [phone] (Work) [address] [place] [phone] Nurse Practitioner León Stallings [facility] [address] [place] [phone] henri Gamboa Neurology [facility] g[facility] Normal [facility] PROGRESS HNO ID: [id number] Author: Ousmane Gamboa Service: ? Author Type: Physician Type: Progress Notes Filed: 07/11/2019 2:46 PM Note Text: .[facility] Patient Name: Fadia Lan Date [...] out but she was caught by a merchant police, she has LOC of unknown duration. 30 mins later, mother came to school, the patient was confused, slurred speech, she looked pale. She was admitted to a local hospital, some elevation of troponin. One week later, she had a similar episodes at school, she had SOB, hands trembling, she thought she was hungary, she went to [place], she started to drove home, somehow, she [...] 3 day-EEG on 05/18/2019 after she left [facility]. She had a mild spells [...] She was diagnosed of having POTs in [place] in Mar. Psychosocial: No depression, no anxiety. [...] tend to occur in the evenings or access manager (3AM-5AM- per mother she is awake prior [...] her to local ED, then transferred to [facility] MICU for further management. Prior [...] high school and quit her job at [employer] due to episodes. ? Impression/Recommenda tions This [...] with prolonged EEG monitoring. Brain Tumor NA SYSTEMS ADMINISTRATION ANALYST Infections NA Developmental Delay NA Family history [...] had BEM recording for several days at [facility] in May 2019 with normal EEG. 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 Loaiza Christophtarun [address] [place] [address] Normal [facility] CNOVon 06-15-2019 CNOV Office Visit (SYNCMN ) FADIA LAN ([id number]) 1 F Date Time Provider Department 06/15/19 [...] Comfort Measures: Added pillow under knees and Bern Pacemaker: No Other Blood work:None Hemodynamic Tests: Dinamap: Standard Cuff on left Arm Cardiac outputs with Tc 99m via 22 ga angio in right median antecubital. Cold PYP 1.5 ml at 10:06 by DC. Baseline:Trivial SA; TN 140 ms #1: Supine 4.0 mCi at 10:37 by KB BP: 93/57; HR: 65 Moderate SA #2: Supine 8.1 mCi at 10:50 by KB BP: 98/59; HR: 65 Moderate SA #3: HUP60d L-DN 11.8 mCi at 11:07 by KB BP:104/65; HR: 81Mild SA Signature: HOMER Garcia, HE Ejection Fraction - KHMER-Gated: BP: 98/54, HR: 66, MGAQ-HR: 69 Mild SA Note: Test completed uneventfully. KB. IV discontinued at 11:40 by KB. [employer] Security card received: yes. Staff involved in procedure: HOMER Garcia, HE; Shameka Gray, RN, Parris [facility] Procedure Finish Time: 11:40 Referring Provider: FLAVIO TRAN ([facility]) [[id number]] Allergies As of Date: 06/15/2019 (No Known Allergies) Date Reviewed: 06/04/2019 Reviewed by: Flavio (Validation Engineer) Melissa - Fully Assessed Primary Visit Diagnosis:Syncope, unspecified syncope type [R55] Other Visit Diagnoses:Syncope and collapse [R55] Near syncope [R55] Chest pain, unspecified type [R07.9] Orthostatic dizziness [R42] Orthostatic lightheadedness [R42] Encounter for examination of blood pressure without abnormal findings [Z01.30] Order(s):HEMODYNAMIC ECHOCARDIOGRAM [[id number]] Order #: [id number]. #:[id number] FQty: 1 SALINE LOCK DISCONTINUE [[id number]] Order #: [id number]: 1 Prescriptions as of 06/15/2019 Sig: POTASSIUM [...] Status:Closed by BENIGNO TAYLOR on 06/28/19 Normal [facility] PROGRESSon 06-15-2019 PROGRESS HNO ID: [id number] Author: Debbie Chinchilla (Tech) Service: ? Author Type: Steward[employer]Steward[employer] Car Type: Progress Notes Filed: 06/28/2019 7:35 AM [...] Comfort Measures: Added pillow under knees and Bern Pacemaker: No Other Blood work:None Hemodynamic Tests: Dinamap: Standard Cuff on left Arm Cardiac outputs with Tc 99m via 22 ga angio in right median antecubital. Cold PYP 1.5 ml at 10:06 by DC. Baseline:Trivial SA; TN 140 ms #1: Supine 4.0 mCi at 10:37 by KB BP: 93/57; HR: 65 Moderate SA #2: Supine 8.1 mCi at 10:50 by KB BP: 98/59; HR: 65 Moderate SA #3: HUP60d L-DN 11.8 mCi at 11:07 by KB BP:104/65; HR: 81Mild SA Signature: HOMER Garcia, CHAMFERING MACHINE OPERATOR Ejection Fraction - KHMER-Gated: BP: 98/54, HR: 66, MGAQ-HR: 69 Mild SA Note: Test completed uneventfully. KB. IV discontinued at 11:40 by KB. [employer] Security card received: yes. Staff involved in procedure: HOMER Garcia, HE; Shameka Gray RN, Parris [facility] Procedure Finish Time: 11:40 Normal [facility] CNOVon 06-04-2019 CNOV Office Visit (NEADMN ) FADIA LAN ([id number]) 1 F Date Time Provider Department 06/04/19 1:00 PM FLAVIO TRAN ([facility]) NEADMN During your visit today, we recorded the [...] syncopal episode, but was caught by a merchant police. Her parents came to the school and [...] of tachycardia. She was thus referred to [facility] for workup of POTS. She saw Dr. Mendez's WIND PROJECT MANAGER Josi. She had a tilt table test [...] to go to her family doctor by [facility]. Her mother states that in April [...] flat. She had a recent admission to [facility] with EEG monitoring done for 5 [...] 5/5biceps, 5/5 wrist extension, and 5/5 hand supervisor orchard. Finger extensor 5/5. Finger flexor 5/5. Pronation [...] of ankles. ? Coordination: Finger-to- nose-finger and oiyp-et-iegt intact bilaterally. No ataxia of arms. No [...] She had tilt table testing done at [facility] that I do not have record [...] with more than 50% of the total ngrp-ph-yola time of the visit in counseling / [...] - TILT TABLE EVALUATION Flavio Tran MSN, LIGHT EQUIPMENT OPERATOR, SENIOR JAVA SOFTWARE DEVELOPER-C 1. This office note has been dictated [...] Allergies) Date Reviewed: 06/04/2019 Reviewed by: [facility]) Melissa - Fully Assessed Reason for Visit: New Patient [172] Primary Visit Diagnosis:Syncope and collapse [R55] Other Visit Diagnoses:Near syncope [R55] Chest pain, unspecified type [R07.9] Orthostatic dizziness [R42] Orthostatic lightheadedness [R42] Disturbance of skin sensation [R20.9] Order(s):ECG COMPLETE [ECG01] Order #: [id number] FUTURE HEMODYNAMIC ECHOCARDIOGRAM [33485474] Order #: [id number]: 1 FUTURE perflutren lipid microspheres (DEFINITY) 1.1 [...] saline.Disp: 1.3 mLRfl: 0 TILT TABLE EVALUATION [74977LVO] Order #: [id number]: 1 NEURO CARDIO AUTONOMIC REFLEX W/WO TILT [1299097] Order #: [id number] SKIN BIOPSY FOR NEUROPATHY/CNL [4359348] Order #: [id number] CONSULT TO NEUROLOGY [9019] Order #: [id number]: 1 FUTURE HEMODYNAMIC TILT W/IV START [7887331] Order #: [id number]: 1 VITAMIN B12 BLOOD [SQB12] Order #: [id number] FUTURE VITAMIN B1 (THIAMINE), WHOLE BLOOD [SQB1WB] Order #: [id number] FUTURE VITAMIN B6/PYRIDOXIN [SQVITB6] Order #: [id number] FUTURE METHYLMALONIC ACID [SQMMA] Order #: [id number] FUTURE COPPER BLOOD [SQCOPPER] Order #: [id number] FUTURE IMMUNOFIXATION SCREEN, SERUM [SQIFESC] Order #: [id number] FUTURE Prescriptions as of 06/04/2019 Sig: POTASSIUM [...] Status:Closed by FLAVIO TRAN on 06/04/19 Normal [facility] Copperon 06-04-2019 Copper 76 ug/dL Low 85-155 [facility] Comment on above: Result Comment: This test was developed and its performance characteristics determined by [facility] Pathology and Laboratory Medicine [place] ([facility]3]). It has not been cleared or approved by the FDA. [facility]] is regulated under CLIA as qualified to perform high complexity testing. This test is used for clinical purposes. It should not be regarded as investigational or for research. Performed By: #### C BC, CMP, MG1, PHOS #### [facility] [address] [address] SONI Screen, Serumon 06-04-20 19 Protein [Mass/Vol] No M protein is identified. Normal No M protein is identified. [facility] Comment on above: Performed By: #### C BC, CMP, MG1, PHOS #### [place] [address] [place] [address] Staff Review Reviewed by Lyla Hoyos MD. ([id number]) Normal [facility] Comment on above: Performed By: #### C BC, CMP, MG1, PHOS #### [place] [address] [place] [address] Methylmalonic Acidon 019 Methylmalonic Acid 161 nmol/L Normal 79-376 [facility] Comment on above: Result Comment: This test was developed and its performance characteristics determined by [facility] and Laboratory Medicine [place] ([facility]3]). It has not been cleared or approved by the FDA. [facility]3] is regulated under CLIA as qualified to perform high complexity testing. This test is used for clinical purposes. It should not be regarded as investigational or for research. Performed By: #### C BC, CMP, MG1, PHOS #### [address] [place] [address] [place] [address] PROGRESSon 06-04-2019 PROGRESS HNO ID: [id number] Author: Flavio Tran Service: ? Author Type: [...] syncopal episode, but was caught by a merchant police. Her parents came to the school and [...] of tachycardia. She was thus referred to [facility] for workup of POTS. She saw Dr. Mendez's WIND PROJECT MANAGER Josi. She had a tilt table test [...] to go to her family doctor by [facility]. Her mother states that in April [...] flat. She had a recent admission to [facility] with EEG monitoring done for 5 days that was normal. She was started on midodrine 7.5 mg TID for her recurrent low blood pressures. Blood pressures are still quite low even while on the midodrine. She has a syncopal episode 1 time per day typically. Top 3-5 symptoms daily: 1. Nausea 2. Weakness 3. Fatigue 4. Dizzy/lightheaded 5. Chest pain/tachycardia OARRS reviewed data reviewed if done COMPASS 31 reviewed [...] 5/5biceps, 5/5 wrist extension, and 5/5 hand supervisor orchard. Finger extensor 5/5. Finger flexor 5/5. Pronation [...] of ankles. ? Coordination: Finger-to- nose-finger and tsen-ej-ikwa intact bilaterally. No ataxia of arms. No [...] She had tilt table testing done at [facility] that I do not have record [...] with more than 50% of the total bdza-jj-davn time of the visit in counseling / [...] - TILT TABLE EVALUATION Flavio Tran MSN, LIGHT EQUIPMENT OPERATOR, SENIOR JAVA SOFTWARE DEVELOPER-C 1. This office note has been dictated [...] the discretion of your PCP/referring physician Normal [facility] Vitamin B1, Whole Blon 06-04 Vitamin B1 (TDP), WB 189.4 nmol/L Normal 84.0-213.0 [facility] Comment on above: Result Comment: This assay measures the concentration of thiamine diphosphate (TDP), the primary active form of vitamin B1. Approximately 90 percent of vitamin B1 present in whole blood is TDP. Thiamine and thiamine monophosphate, which comprise the remaining 10 percent, are not measured. This test was developed and its performance characteristics determined by [facility] [place] ( [facility]). It has not been cleared or approved by the FDA. [facility]3] is regulated under CLIA as qualified to perform high complexity testing. This test is used for clinical purposes. It should not be regarded as investigational or for research. Performed By: #### C BC, CMP, MG1, PHOS #### [facility] [address] [place], [place] [address] Vitamin B12on 06-04-2019 Cobalamin (Vitamin B12) [Mass/Vol] 989 pg/mL Normal 232-1245 [facility] Comment on above: Performed By: #### C BC, CMP, MG1, PHOS #### [facility] [employer] [employer] [address], [place] [address] Vitamin B6 Plasmaon 06-04-20 19 Vitamin B6 Plasma 29.7 nmol/L Normal 20.0-125.0 [facility] Comment on above: Result Comment: (NOT E) INTERPRETIVE INFORMATION: Vitamin B6 (Pyridoxal 5-Phosphate) Pyridoxal 5'-phosphate measured in a specimen collected following an 8-hour or overnight fast accurately indicates vitamin B6 nutritional status. Non-fasting specimen concentration reflects recent vitamin intake. Test developed and characteristics determined by [facility]. See Compliance Statement B: i[employer]TV/CS Performed by [facility], [address] [place] [id number] [email or web address], Chris Domingo MD, Lab. Director Performed By: #### C BC, CMP, MG1, PHOS #### [facility] [address], [place] [address] PLAN OF CAREon 05-16-2019 PLAN OF CARE HNO ID: [id number] Author: Drew Walton Service: Cardiovascular Medicine Author Type: Resident Type: Plan of Care Filed: 05/16/2019 7:39 AM Note Text: Attestation signed by John Valdivia at 05/16/2019 9:00 AM [facility] STAFF PHYSICIAN NOTE OF PERSONAL INVOLVEMENT IN [...] chordal structure . Cardiac enzymes negative at F. TTE done yesterday with normal systolic function, no wall motion abnormalities, and no thickening or mobile lesion. Cardiology will sign off at this time. Please do not hesitate to re consult with any concerns. Drew Walton MD [phone] Normal [facility] PROGRESSon 05-15-2019 PROGRESS HNO ID: [id number] Author: Shanae Morales Service: General Internal Medicine Author Type: Physician Type: Progress Notes Filed: 05/15/2019 5:43 PM Note Text: SERVICE DATE: 05/15/2019 SERVICE TIME: 5:31 PM HOSPITAL MEDICINE PROGRESS NOTE NIGHT AND WEEKEND COVERAGE: Days: [phone] [place] [phone] for patient issues. Nights: [phone] For patients on H80/81, G80/81, please page GIM team pager [phone] For patients on any other floor, please page GIM team pager [phone] Hospital Medicine/Primary Attending: Shanae Morales MD Subjective [...] 0830 vte non-pharmacologic prophylaxis - none indicated (la,oh) VTE Prophylaxis: VTE prophylaxis appropriate Plan of care discussed with: Provider, Family/Significant Other: mother, Care Management and RN SIGNATURE: Shanae Morales MD PATIENT NAME: Fadia Lan DATE: May 15, 2019 TIME: 5:31 PM PAGER/CONTACT #: [phone] Normal [facility] C-Reactive Proteinon 019 CRP [Mass/Vol] mg/L Normal <0.9 [facility] Comment on above: Performed By: #### V ALLBG #### [facility] [address], [place] [address] CASE MANAGEMon 05-14-2019 CASE MANAGEM HNO ID: [id number] Author: Sendy PerrinRn) BITA Olson Service: Care Management Author Type: Registered [...] 14, 2019 TIME: 5:43 PM PAGER/CONTACT #: [phone] Normal [facility] CASE MANAGEM HNO ID: [id number] Author: Ruby Boudreaux) BITA Haile Service: Case Management Author Type: Registered Nurse Type: Care Mgt Progress Note Filed: 05/14/2019 2:44 PM Note Text: CARE MANAGEMENT PROGRESS NOTE SERVICE DATE: 05/14/2019 SERVICE TIME: 2:43 PM LOS: 2 days Progress Note Attempted to see the patient however she was sound asleep. Care Management will follow for Post Hospital Transition Needs. SIGNATURE: Ruby Haile RN,BSN,ACM-RN PATIENT NAME: Fadia Lan DATE: May 14, 2019 TIME: 2:43 PM PAGER/CONTACT #: .[phone] Normal [facility] Cortisolon 05-14-2019 Cortisol 20.4 ug/dL Normal [facility] Comment on above: Result Comment: Juan isol Reference Range: AM = 5.3-22.5, PM = 3.4-16.8 Performed By: #### C BC, CMP, MG1, PHOS #### [facility] [employer] [address], [place] [phone] PLAN OF CAREon 05-14-2019 PLAN OF CARE HNO ID: [id number] Author: Dante Smith MD Service: Neurology General [...] if new findings on EEG, please page [phone] -Pt should follow up with epilepsy - will place follow up order -For further POTS management, pt may follow up in autonomic clinic if she chooses -Please page with further questions Dante Smith MD PGY-2 Neurology Pager [phone] Normal [facility] PROGRESSon 05-14-2019 PROGRESS HNO ID: [id number] Author: Shanae Morales Service: General Internal Medicine Author Type: Physician Type: Progress Notes Filed: 05/14/2019 6:19 PM Note Text: SERVICE DATE: 05/14/2019 SERVICE TIME: 6:17 PM HOSPITAL MEDICINE PROGRESS NOTE NIGHT AND WEEKEND COVERAGE: Days: [phone] [place] [phone] for patient issues. Nights: [phone] For patients on H80/81, G80/81, please page GIM team pager [phone] For patients on any other floor, please page GIM team pager [phone] Hospital Medicine/Primary Attending: Shanae Morales MD Subjective [...] 0830 vte non-pharmacologic prophylaxis - none indicated (fl,oh) VTE Prophylaxis: VTE prophylaxis appropriate Plan of care discussed with: Patient, Family/Significant Other: mother, Care Management and RN via telephone SIGNATURE: Shanae Morales MD PATIENT NAME: Fadia Lan DATE: May 14, 2019 TIME: 6:17 PM PAGER/CONTACT #: [phone] Normal [facility] Troponin Ton 05-14-2019 Troponin T.cardiac [Mass/Vol] ug/L Normal 0.000-0.029 [facility] Comment on above: Performed By: #### V ALLBG #### [facility] [address], [place] [address] NURSING PROGon 05-13-2019 NURSING PROG HNO ID: [id number] Author: Colleen (Bita) BITA Devine Service: ? Author Type: Registered Nurse Type: Nursing Progress Note Filed: 05/13/2019 5:05 AM Note Text: Nursing Progress Note Patient Name: Fadia Lan Patient Location: [place] [address] Daily Note: Pt arrived to unit in stable condition. Pt was fully assessed including skin check with 2nd RN. Pt was oriented to room, instructed on how to use the call button, explained why she is currently a falls risk, and taught her how to use the call light for help. 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 I instructed patient that doctors will need to see medication to reconcile med orders but that we will be providing all medication while she is in the hospital. Pt showed no signs and had no c/o pain, dizziness, chest pains or seizure activity at this time. This note was completed by: Colleen Devine RN Normal [facility] PROGRESSon 05-13-2019 PROGRESS HNO ID: [id number] Author: Gerald Borrego) Mario Alberto Service: Hospital Medicine Author Type: Physician Type: Progress Notes Filed: 05/13/2019 1:54 PM Note Text: Plan of care note Spoke to pt and family at bedside Went over previous work up with them They have paper records from [facility] RECORDS - ECHO - 3 echos done [...] Staff, Dept. Of Hospital Medicine PAGER - [phone] ' Normal [facility] PROGRESS HNO ID: [id number] Author: Scott Rodriguez Service: Hospital Medicine Author Type: Physician Type: Progress Notes Filed: 05/13/2019 2:50 AM Note Text: DEPARTMENT OF HOSPITAL MEDICINE PROGRESS NOTE SERVICE DATE: 05/13/2019 SERVICE TIME: 2:42 AM Primary Care Physician: Danilo Dinero MD NIGHT AND WEEKEND COVERAGE: Please page me at [phone] with any question between 5 pm-8 am. [...] OSH and transferred her for 2nd opinon. No past medical history on file. No [...] 0830 vte non-pharmacologic prophylaxis - none indicated (la,ca) VTE Prophylaxis: low risk Disposition: Home Plan of care discussed with: Patient and RN SIGNATURE: Scott Rodriguez MD PATIENT NAME: Fadia Lan DATE: May 13, 2019 TIME: 2:11 AM PAGER/CONTACT #: [phone] etx [phone] Normal [facility] CBCon 05-12-2019 Absolute nRBC <0.01 Normal <0.01 [facility] Comment on above: Performed By: #### C BC, CMP, MG1, PHOS #### [facility] [address], [place] [address] Erythrocyte distribution width (RBC) [Ratio] 11.3 % Low 11.5-15.0 [facility] Comment on above: Performed By: #### C BC, CMP, MG1, PHOS #### [facility] [address], [place] [address] Hematocrit (Bld) [Volume fraction] 36.1 % Normal 36.0-46.0 [facility] Comment on above: Performed By: #### C BC, CMP, MG1, PHOS #### [facility] [address], [place] [address] Hemoglobin (Bld) [Mass/Vol] 12.6 g/dL Normal 11.5-15.5 [facility] Comment on above: Performed By: #### C BC, CMP, MG1, PHOS #### [address] [place], [place] [address] MCH (RBC) [Entitic mass] 31.0 pG Normal 26.0-34.0 [facility] Comment on above: Performed By: #### C BC, CMP, MG1, PHOS #### [facility] [address], [place] [address] MCHC (RBC) [Mass/Vol] 34.9 g/dL Normal 30.5-36.0 [facility] Comment on above: Performed By: #### C BC, CMP, MG1, PHOS #### [facility] [address], [place] [address] MCV (RBC) [Entitic vol] 88.7 fL Normal 80.0-100.0 [facility] Comment on above: Performed By: #### C BC, CMP, MG1, PHOS #### [facility] [address], [place] [address] Platelet mean volume (Bld) [Entitic vol] 8.6 fL Low 9.0-12.7 [facility] Comment on above: Performed By: #### C BC, CMP, MG1, PHOS #### [facility] [address] [place], [place] [address] Platelets (Bld) [#/Vol] 328 10*3/uL Normal 150-400 [facility] Comment on above: Performed By: #### C BC, CMP, MG1, PHOS #### [facility] [address], [place] [address] RBC (Bld) [#/Vol] 4.07 10*6/uL Normal 3.90-5.20 [facility] Comment on above: Performed By: #### C BC, CMP, MG1, PHOS #### [facility] [address], [place] [address] WBC (Bld) [#/Vol] 5.72 10*3/uL Normal 3.70-11.00 [facility] Comment on above: Performed By: #### C BC, CMP, MG1, PHOS #### [facility] [address], [place] [address] CONSULTon 05-12-2019 CONSULT HNO ID: [id number] Author: Ramesh Scales Service: Neurology General Author [...] tend to occur in the evenings or access manager (3AM-5AM- per mother she is awake prior [...] her to local ED, then transferred to [facility] for further management. Prior [...] high school and quit her job at [employer] due to episodes. Current Facility-Administered Medications Medication [...] ? Coordination: Finger-to- nose-finger intact bilaterally and Iwyd-nq-jnhk intact bilaterally. ? Gait: Not examined. LABS/DATA: [...] [place] [phone]. - [place] [phone] with questions. The patient was evaluated by Neurology Moonlighter and will be formally seen by staff in the AM. SIGNATURE: Maria De Jesus Gunderson MD PGY4 Neurology Resident PATIENT NAME: Fadia Lan DATE: May 12, 2019 TIME: 12:49 PM PAGER/CONTACT #: [phone] Staff Note: I reviewed the history and physical obtained and documented by the resident and I personally participated in the rosado components. I agree with impression and plan. Ramesh Scales MD Normal [facility] Comp Metabolic Panelon 05-12 Albumin [Mass/Vol] 4.1 g/dL Normal 3.9-4.9 [facility] Comment on above: Performed By: #### C BC, CMP, MG1, PHOS #### [facility] [address] [place], [place] [address] ALP [Catalytic activity/Vol] 54 U/L Normal 45-87 [facility] Comment on above: Result Comment: Refe rence ranges were not locally established for this patient's age group. The normal values are based on the following source: Austen BERNARD, Dari WALKER, et al. CLSI based transference of the [employer] database of pediatric reference intervals from [place] to Antionette, Ortho, Nathalia, and Siemens Clinical Chemistry Assays: Direct validation using reference samples from the Modern M[employer] cohort. Clin Biochem. Performed By: #### C BC, CMP, MG1, PHOS #### [facility] [address], [place] [address] ALT [Catalytic activity/Vol] 10 U/L Normal 7-38 [facility] Comment on above: Performed By: #### C BC, CMP, MG1, PHOS #### [facility] [address], [place] [address] Anion gap [Moles/Vol] 11 mmol/L Normal 9-18 [facility] Comment on above: Performed By: #### C BC, CMP, MG1, PHOS #### [facility] [address], [place] [address] AST [Catalytic activity/Vol] 14 U/L Normal 13-35 [facility] Comment on above: Performed By: #### C BC, CMP, MG1, PHOS #### [facility] [address], [place] [address] Bilirubin [Mass/Vol] 0.5 mg/dL Normal 0.2-1.3 [facility] Comment on above: Performed By: #### C BC, CMP, MG1, PHOS #### [facility] [address], [place] [address] Calcium [Mass/Vol] 8.7 mg/dL Normal 8.5-10.2 [facility] Comment on above: Performed By: #### C BC, CMP, MG1, PHOS #### [facility] [address], [place] [address] Chloride [Moles/Vol] 105 mmol/L Normal 97-105 [facility] Comment on above: Performed By: #### C BC, CMP, MG1, PHOS #### [facility] [address], [place] [address] CO2 [Moles/Vol] 26 mmol/L Normal 22-30 [facility] Comment on above: Performed By: #### C BC, CMP, MG1, PHOS #### [facility] [address] [place], [place] [address] Creatinine [Mass/Vol] 0.58 mg/dL Normal 0.58-0.96 [facility] Comment on above: Performed By: #### C BC, CMP, MG1, PHOS #### [facility] [address] [place], [place] [address] eGFR- Amer. >60 Normal [facility] Comment on above: Performed By: #### C BC, CMP, MG1, PHOS #### [facility] [address] [place], [place] [address] GFR/1.73 sq M predicted among non-blacks MDRD (S/P/Bld) [Vol rate/Area] mL/min/{1.73_m2} Normal [facility] Comment on above: Result Comment: eGFR (Estimated [...] #### C BC, CMP, MG1, PHOS #### [facility] [address], [place] [address] Glucose [Mass/Vol] 81 mg/dL Normal 74-99 [facility] Comment on above: Result Comment: The [place] Diabetes Association (ADA) provides guidance for cutoff [...] Standards of Medical Care in Diabetes 2016, [place] [employer] Association. Diabetes Care. 2016.39(Suppl 1). Performed By: #### C BC, CMP, MG1, PHOS #### [facility] [address], [place] [address] Potassium [Moles/Vol] 3.3 mmol/L Low 3.7-5.1 [facility] Comment on above: Performed By: #### C BC, CMP, MG1, PHOS #### [facility] [address], [place] [address] Protein [Mass/Vol] 6.1 g/dL Low 6.3-8.0 [facility] Comment on above: Performed By: #### C BC, CMP, MG1, PHOS #### [facility] [address], [place] [address] Sodium [Moles/Vol] 142 mmol/L Normal 136-144 [facility] Comment on above: Performed By: #### C BC, CMP, MG1, PHOS #### [facility] [address], [place] [address] Urea nitrogen [Mass/Vol] 5 mg/dL Low 7-21 [facility] Comment on above: Performed By: #### C BC, CMP, MG1, PHOS #### [facility] [address], [place] [address] ECG COMPLETEon 05-12-2019 ECG COMPLETE NAME : FADIA LAN PID : [id number] : 2000 Gender : Female Race : ORD : [id number] Procedure Date : May 12 2019 13:55:01 Edit Date : May 16 2019 11:01:21 Diagnosis:SINUS RHYTHM WITH MARKED SINUS ARRHYTHMIA OTHERWISE NORMAL ECG Confirmed by MD STACEY, PhD, IZABELA ([id number]) on 05/16/2019 11:01:16 AM Ventricular Rate : 67 BPM Atrial Rate : 67 BPM P-R Interval : 144 ms QRS Duration : 86 ms Q-T Interval : 412 ms QTC Calculation(Bazett) : 435 ms P [place] : 62 degrees R [place] : 65 degrees T [place] : 54 degrees Test Reason : Arrhythmia Location : 151 : G51 09 Overread By : MD STACEY, PhD,IZABELA Edited By : MD STACEY, PhD,IZABELA Referred By : MERRITT HANLEY Acquired by : YUAN DIAZ Normal [facility] EKG1on 05-12-2019 EKG1 NAME : FADIA LAN PID : [id number] : 2000 Gender : Female Race : ORD : Procedure Date : May 12 2019 09:25:25 Edit Date : May 16 2019 11:01:13 Diagnosis:NORMAL SINUS RHYTHM NORMAL ECG Confirmed by MD STACEY, PhD, IZABELA ([id number]) on 05/16/2019 11:01:12 AM Ventricular Rate : 65 BPM Atrial Rate : 65 BPM P-R Interval : 160 ms QRS Duration : 86 ms Q-T Interval : 416 ms QTC Calculation(Bazett) : 432 ms P [place] : 64 degrees R [place] : 76 degrees T [place] : 45 degrees Test Reason : Location : 115 : G60NS Overread By : MD STACEY, PhD,IZABELA Edited By : MD STACEY, PhD,IZABELA Referred By : , Acquired by : [id number], Normal [facility] GASV + ALLon 05-12-2019 Base Excess 1 mmol/L Normal [facility] Comment on above: Performed By: #### V ALLBG #### [facility] [address], [place] [address] Calcium [Mass/Vol] 1.23 mmol/L Normal 1.08-1.30 [facility] Comment on above: Performed By: #### V ALLBG #### [facility] [address], [place] [address] Carboxyhemoglobin,Kevin 1.1 % Normal <2.0 [facility] Comment on above: Performed By: #### V ALLBG #### [facility] [address], [place] [address] CO2 [Moles/Vol] 28 mmol/L Normal 25-29 [facility] Comment on above: Performed By: #### V ALLBG #### [facility] [address], [place] [address] Glucose [Mass/Vol] 84 mg/dL Normal 60-105 [facility] Comment on above: Performed By: #### V ALLBG #### [facility] [address], [place] [address] HCO3 (Bld) [Moles/Vol] 27 mmol/L Normal 24-28 [facility] Comment on above: Performed By: #### V ALLBG #### [place] [address], [place] [address] Hematocrit (Bld) [Volume fraction] 40 % Normal 36.0-46.0 [facility] Comment on above: Performed By: #### V ALLBG #### [facility] [address], [place] [address] Hemoglobin (Bld) [Mass/Vol] 12.9 g/dL Normal 11.5-15.5 [facility] Comment on above: Performed By: #### V ALLBG #### [facility] [address], [place] [address] Lactate [Moles/Vol] 0.9 mmol/L Normal 0.5-2.2 [facility] Comment on above: Performed By: #### V ALLBG #### [facility] [address], [place] [address] Methemoglobin 0.6 % Normal 0.4-1.5 [facility] Comment on above: Performed By: #### V ALLBG #### [facility] [address], [place] [address] Oxygen (Bld) [Partial pressure] 46 mm Hg High 35-45 [facility] Comment on above: Performed By: #### V ALLBG #### [facility] [address] [place], [place] [address] Oxyhemoglobin, Kevin. 76 % Normal 60-85 [facility] Comment on above: Performed By: #### V ALLBG #### [facility] [address] [place], [place] [address] pCO2 49 mm Hg Normal 42-55 [facility] Comment on above: Performed By: #### V ALLBG #### [facility] [address] [place], [place] [address] pCO2, Temp Correct 49 mm Hg Normal [facility] Comment on above: Performed By: #### V ALLBG #### [facility] [address], [place] [address] pH (Bld) 7.36 [pH] Normal 7.32-7.42 [facility] Comment on above: Performed By: #### V ALLBG #### [facility] [address] [place], [place] [address] pH, Temp Corrected 7.36 Normal 7.32-7.42 [facility] Comment on above: Performed By: #### V ALLBG #### [facility] [address], [place] [address] pO2, Temp Corrected 46 mm Hg Normal [facility] Comment on above: Performed By: #### V ALLBG #### [facility] [address] [place], [place] [address] Potassium [Moles/Vol] 3.3 mmol/L Low 3.5-5.0 [facility] Comment on above: Performed By: #### V ALLBG #### [facility] [address] [place], [place] [address] Sodium [Moles/Vol] 140 mmol/L Normal 132-148 [facility] Comment on above: Performed By: #### V ALLBG #### [facility] [address] [place], [place] [address] HISTORY PHYSICALon HISTORY PHYSICAL HNO ID: [id number] Author: Tony Tapia MD Service: Critical Care Author Type: Resident Type: HANDP Filed: 05/12/2019 2:09 PM Note Text: Attestation signed by Skip Zee at 05/12/2019 6:09 PM [facility] STAFF PHYSICIAN NOTE OF PERSONAL INVOLVEMENT IN [...] of care, medical plan for the day, security and privacy consultant recommendations, medical disposition and current medical condition/prognosis as and if clinically indicated. All questions and concerns were answered and addressed at this juncture. They were notified on May 12, 2019. Plan of care discussed with: Provider, RN, Patient. 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 Keflex and mupirocin given and the infection [...] 0830 vte non-pharmacologic prophylaxis - none indicated ([place]) 05/12/19 0830 activity - mobilize patient ([place], [place]) VTE Prophylaxis: VTE prophylaxis appropriate Bowels: no [...] TTE DVT ppx: hep subq Dispo: floor [facility] PGY2 Note to be reviewed by Dr. Zee Normal [facility] Magnesiumon 05-12-2019 Magnesium [Mass/Vol] 1.9 mg/dL Normal 1.7-2.3 [facility] Comment on above: Performed By: #### C BC, CMP, MG1, PHOS #### [facility] [address] [address] PROGRESSon 05-12-2019 PROGRESS HNO ID: [id number] Author: John Valdivia Service: Cardiovascular Medicine Author Type: Physician Type: Progress Notes Filed: 05/13/2019 2:01 PM Note Text: [facility] CARDIOVASCULAR MEDICINE HISTORY AND PHYSICAL Fadia Riky [id number] PRIMARY SERVICE: [facility] DATE OF ADMISSION: 05/12/2019 CHIEF COMPLAINT: troponinemia [...] mobile density -I uploaded the echos to [employer]. Would repeat TTE here. Ask them to [...] Staff addendum to follow Brooks Clinton MD White Sugar Syrup Operator Pager: [phone] For communication after 5 pm on weekdays and after 12 pm on weekends, please page the following: - Clinical Cardiology patients on all floors: page [phone] - All other patients: after hours JORGE A (found in the On-Call directory by searching JORGE A) - For any urgent or emergent issues, [place] [phone] (Heart failure A, Imaging, WIND PROJECT MANAGER/PA) [place] [phone] (Heart failure B, EP/EP TCI, Intervention, J33) --- Resident update: Patient seen by cardiology team and 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 Briefly, Ms. Loaiza is an 18 year [...] will continue to follow. Drew Walton MD [phone] [facility] STAFF PHYSICIAN NOTE OF PERSONAL INVOLVEMENT IN [...] evidence of cardiomyopathy PLAN: repeat troponin at [facility] And if elevated consider further testing Echocardiogram telemetry monitoring John Valdivia MD DATE of SERVICE: May 13, 2019 TIME of SERVICE: 2:00 PM Normal [facility] Phosphoruson 05-12-2019 Phosphate [Mass/Vol] 3.9 mg/dL Normal 2.7-4.8 [facility] Comment on above: Performed By: #### C BC, CMP, MG1, PHOS #### [facility] [address] [place], [place] [address] Sed Rate Westergrenon 2018 Sed Rate Westergren 2 mm/hr Normal 0-20 [facility] Comment on above: Performed By: #### T NT, WSR, TSH #### [facility] [address] [place], [place] [address] Staph aureus PCRon 9 MRSA PCR Negative Normal [facility] Comment on above: Performed By: #### V ALLBG #### [facility] [address], [place] [address] S aureus Spec Source Nasal Normal [facility] Comment on above: Performed By: #### V ALLBG #### [facility] [address], [place] [address] Staph aureus PCR Negative Normal [facility] Comment on above: Result Comment: Perf ormance characteristics of this assay for testing specimens from patients <=21 years of age were determined by [facility] Medicine [place] ([facility]). Performance on this age group has not been approved by the FDA. -[facility] is regulated under CLIA as qualified to perform high complexity testing. This test is used for clinical purposes. It should not be regarded as investigational or for research. Performed By: #### V ALLBG #### [facility] [address], [place] [address] TSHon 05-12-2019 TSH Qn 1.970 uU/mL Normal 0.510-4.300 [facility] Comment on above: Result Comment: If t [...] E, et al. 2017 Guidelines of the [place] [employer] for the Diagnosis and Management of Thyroid Disease during and the . Thyroid, 2017:27:3:315-389. Reference ranges were not locally established for this patient's age group. The normal values are based on the following source: Nate W, Awa V. Reference Ranges for Adults and Children: Pre-analytical Considerations. [facility] Performed By: #### V ALLBG #### [facility] [address], [place] [address] Toxicology Screen,Uron 05-12 Amphetamines, Urine Negative Normal Negative [facility] Comment on above: Result Comment: Cuto ff threshold at 1000 ng/mL. Performed By: #### U TOX2, UAWMIC #### [facility] [address] [address] Barbiturates, Urine Negative Normal Negative [facility] Comment on above: Result Comment: Cuto ff threshold at 200 ng/mL. Performed By: #### U TOX2, UAWMIC #### [facility] [address] [address] Benzodiazepines, Ur Negative Normal Negative [facility] Comment on above: Result Comment: Cuto ff threshold at 200 ng/mL. Performed By: #### U TOX2, UAWMIC #### [facility] [address] [address] Cannabinoids, Urine Negative Normal Negative [facility] Comment on above: Result Comment: Cuto ff threshold at 50 ng/mL. Performed By: #### U TOX2, UAWMIC #### [facility] [address], [place] [address] Cocaine, Urine Negative Normal Negative [facility] Comment on above: Result Comment: Cuto ff threshold at 300 ng/mL. Performed By: #### U TOX2, UAWMIC #### [facility] [address], [place] [address] Ethanol, Urine <11 Normal <11 [facility] Comment on above: Performed By: #### U TOX2, UAWMIC #### [facility] [address], [place] [address] Opiates, Urine Negative Normal Negative [facility] Comment on above: Result Comment: Cuto ff threshold at 300 ng/mL. Performed By: #### U TOX2, UAWMIC #### [address] [place] [address] Oxycodone, Urine Negative Normal Negative [facility] Comment on above: Result Comment: Cuto ff [...] on the same specimen through Client Services ([phone]) if contacted within 48 hours of initial testing. [1]Substance Abuse and Mental Health Services Administration (2012). Clinical Drug Testing in Primary Care Technical Assistance Publication Series 32. Department of Health and Human Services, [place], p.10. Performed By: #### U TOX2, UAWMIC #### [facility] [address] [place] [phone] Phencyclidine, Urine Negative Normal Negative [facility] Comment on above: Result Comment: Cuto ff threshold at 25 ng/mL. Performed By: #### U TOX2, UAWMIC #### [facility] [address] [place] [phone] Troponin Ton 05-12-2019 Troponin T.cardiac [Mass/Vol] ug/L Normal 0.000-0.029 [facility] Comment on above: Performed By: #### T NT, WSR, TSH #### [facility] [address] [place] [address] Urinalysis with Microscopico n 05-12-2019 Bilirubin, Urine Negative Normal Negative [facility] Comment on above: Performed By: #### U TOX2, UAWMIC #### [facility] [address], [place] [address] Clarity (U) Clear Normal Clear [facility] Comment on above: Performed By: #### U TOX2, UAWMIC #### [facility] [address], [place] [address] Color (U) Yellow Normal Yellow [facility] Comment on above: Performed By: #### U TOX2, UAWMIC #### [address] [place], [place] [address] Comments SEE COMMENT Normal [facility] Comment on above: Result Comment: N/A Performed By: #### U TOX2, UAWMIC #### [address] [address] Epithelial cells LM.HPF (Urine sed) [#/Area] SEE COMMENT Normal [facility] Comment on above: Result Comment: Few Squamous Epithelial Cells Performed By: #### U TOX2, UAWMIC #### [address] [place], [place] [id number] Glucose Ql (U) Negative Normal Negative [facility] Comment on above: Performed By: #### U TOX2, UAWMIC #### [address] [address] Hemoglobin/Blood,Ur 1+ Critically abnormal Negative [facility] Comment on above: Performed By: #### U TOX2, UAWMIC #### [facility] [address], [place] [address] Ketones Ql (U) Negative Normal Negative [facility] Comment on above: Performed By: #### U TOX2, UAWMIC #### [address] [place], [place] [address] Leukest Negative Normal Negative [facility] Comment on above: Performed By: #### U TOX2, UAWMIC #### [place] [id number] Nitrite Ql (U) Negative Normal Negative [facility] Comment on above: Performed By: #### U TOX2, UAWMIC #### [facility] [address], [place] [address] pH (Bld) 6.0 Normal 4.5-8.0 [facility] Comment on above: Performed By: #### U TOX2, UAWMIC #### [address] [place], [place] [address] Protein (U) [Mass/Vol] Negative Normal Negative [facility] Comment on above: Performed By: #### U TOX2, UAWMIC #### [place] [id number] RBC (U) [#/Vol] 0-3 Normal 0-3 [facility] Comment on above: Performed By: #### U TOX2, UAWMIC #### [address] [address] Specific [place], [place] 1.009 Normal 1.005-1.030 [facility] Comment on above: Performed By: #### U TOX2, UAWMIC #### [address] [place], [place] [address] Urine Álvaro Comment SEE COMMENT Normal [facility] Comment on above: Result Comment: N/A Performed By: #### U TOX2, UAWMIC #### [address] [place], [place] [address] Urobilinogen Qn (U) Normal Normal Normal [facility] Comment on above: Performed By: #### U TOX2, UAWMIC #### [address] [place], [place] [address] WBC (Bld) [#/Vol] 0-5 Normal 0-5 [facility] Comment on above: Performed By: #### U TOX2, UAWMIC #### [facility] [address] [place] [id number] CNCOon 05-01-2019 CNCO Letter Text Normal [facility] Vital Signs Date Time Vital Sign Value Performing Clinician Facility 04-03-2024 16:08-0400 Body height 165.1 cm Wicho Dolce DPM FACFAS Work Phone: [facility] 04-03-2024 16:08-0400 Body mass index (BMI) [Ratio] 20.97 kg/m2 Wicho Dolce DPM FAC[facility]AS Work Phone: [facility] 04-03-2024 16:08-0400 Body weight 57.15 kg Wicho Dolce DPM FACFAS Work Phone: [facility] 04-03-2024 16:08-0400 Diastolic blood pressure 68 mm[Hg] Wicho Dolce DPM FACFAS Work Phone: [facility] 04-03-2024 16:08-0400 Heart rate 70 /min Wicho Dolce DPM FACFAS Work Phone: [facility] 04-03-2024 16:08-0400 Systolic blood pressure 121 mm[Hg] Wicho Dolce DPM FACFAS Work Phone: [facility] 12-30-2023 09:15-0400 Diastolic blood pressure 67 mm[Hg] MD Danilo Dinero Work Phone: [facility] 12-30-2023 09:15-0400 Heart rate 73 /min MD Danilo Dinero Work Phone: [facility] 12-30-2023 09:15-0400 Respiratory rate 18 /min MD Danilo Dinero Work Phone: [facility] 12-30-2023 09:15-0400 SaO2% (BldA) [Mass fraction] 98 % MD Danilo Dinero Work Phone: [facility] 12-30-2023 09:15-0400 Systolic blood pressure 100 mm[Hg] MD Danilo Dinero Work Phone: [facility] 12-30-2023 06:31-0400 Body height 165.1 cm MD Danilo Dinero Work Phone: [facility] 12-30-2023 06:31-0400 Body temperature 97.9 [degF] MD Danilo Dinero Work Phone: [facility] 12-30-2023 06:31-0400 Body weight 56.5 kg MD Danilo Dinero Work Phone: [facility] 10-10-2020 21:15-0400 Diastolic blood pressure 57 mm[Hg] Estuardo Carter MD Work Phone: [facility] Work Phone: 10-10-2020 21:15-0400 Heart rate 92 /min Estuardo Carter MD Work Phone: [facility] Work Phone: 10-10-2020 21:15-0400 Respiratory rate 16 /min Estuardo Carter MD Work Phone: [facility] Work Phone: 10-10-2020 21:15-0400 SaO2% (BldA) [Mass fraction] 96 % Estuardo Carter MD Work Phone: [facility] Work Phone: 10-10-2020 21:15-0400 Systolic blood pressure 105 mm[Hg] Estuardo Carter MD Work Phone: [facility] Work Phone: 10-10-2020 19:12-0400 Body temperature 98.71 [degF] Estuardo Carter MD Work Phone: [facility] Work Phone: 10-10-2020 16:39-0400 Body weight 57.61 kg Estuardo Carter MD Work Phone: [facility] Work Phone: 05-12-2019 11:07-0500 Body temperature 98.6 [degF] [facility] Comment on above: Performed By: #### VALLBG #### [facility] [address] [place], [place] [address] Encounters Encounter Date Encounter Type Care Provider Facility Start: 04-03-2024 End: 04-03-2024 Office outpatient new 45 minutes Wicho R Dolce DPM FACFAS Work Phone: [facility] Comment on above: Contusion of left fo ot, initial encounter (Primary Dx); Left ankle instability; Peroneal tendonitis of left lower extremity; Other enthesopathy of left foot and ankle; Ankle contracture, left; Sprain of left foot, initial encounter Start: 04-03-2024 End: 04-03-2024 Bamboo flowsheet Wicho R Dolce DPM FACFAS Work Phone: [facility] Start: 04-03-2024 End: 04-03-2024 Bamboo flowsheet Wicho R Dolce DPM FACFAS Work Phone: [facility] Start: 03-09-2024 End: 03-09-2024 ambulatory MD Danilo Dinero Work Phone: [facility] Work Phone: Start: 03-09-2024 End: 03-09-2024 Patient encounter procedure MD Danilo Dinero Work Phone: [facility] [address] Work Phone: Start: 02-20-2024 End: 02-20-2024 ambulatory MD Danilo Dinero Work Phone: [facility] Work Phone: Start: 02-20-2024 End: 02-20-2024 Patient encounter procedure MD Danilo Dinero Work Phone: [facility] [address] Work Phone: Start: 01-25-2024 End: 01-25-2024 ambulatory MD Danilo Dinero Work Phone: [facility] Work Phone: Start: 01-25-2024 End: 01-25-2024 Patient encounter procedure MD Danilo Dinero Work Phone: [facility] [address] Work Phone: Start: 01-09-2024 End: 01-09-2024 ambulatory MD Danilo Dinero Work Phone: [facility] Work Phone: Start: 01-09-2024 End: 01-09-2024 Patient encounter procedure MD Danilo Dinero Work Phone: [facility] [address] Work Phone: Start: 12-30-2023 End: 12-30-2023 Emergency department patient visit MD Danilo Dinero Work Phone: [facility] Work Phone: Start: 06-28-2023 End: 06-28-2023 ambulatory DMITRI GOLD Not Available Start: 08-17-2022 End: 08-18-[address] DMITRI GOLD . Facility:[facility] Start: 2022 Encounter for preprocedural laboratory examination DR DMITRI GOLD . [facility] Start: 07-02-2022 End: 07-02-2022 ambulatory [...] 10-10-2020 Emergency department patient visit ESTUARDO CARTER [facility] Start: 10-10-2020 End: 10-10-2020 Emergency department patient visit Estuardo Carter MD Work Phone: [facility] Comment on above: Flank pain (Primary Dx); Dermoid cyst of right ovary; Post-op pain Procedures Date Procedure Procedure Detail Performing Clinician Start: 12-30-2023 X-ray of left ankle MD Danilo Dinero Work Phone: Start: 12-30-2023 X-ray of left foot MD Shira Dinero Work Phone: Start: 10-10-2020 Ct abdomen & pelvis w/contrast material Estuardo Carter MD Work Phone: Start: 10-10-2020 Comprehensive metabo lic panel Estuardo Carter MD Work Phone: Start: 10-10-2020 Urinalysis microscopic only Estuardo Carter MD Work Phone: Start: 10-10-2020 Urnls dip stick/tabl et rgnt auto w/o microscopy Estuardo Carter MD Work Phone: Plan of Treatment Date Care Activity Detail Author Start: 04-18-2024 End: 04-18-2024 Patient encounter procedure 04/18/2024 3:40 PM EST Office Visit [facility] [address] [place] [address] Dmitri Gold DO [address] [place] [address] [facility] Start: 04-17-2024 End: 04-17-2024 Patient encounter procedure 04/17/2024 3:40 PM EST Office Visit [facility] [address] [place] [address] Wicho Morillo, DPM [facility]AS [address] [place] [address] [facility] Start: 02-11-2021 Influenza vaccination Flu vacc ine (Season Ended) [facility] Phone: Start: 2019 DTaP/Tdap/Td vaccine (1 - Tdap) DTaP/Tdap/Td vaccine (1 - Tdap) [facility] Phone: Start: 2016 COVID-19 Vaccine (1) COVID-19 Vaccin e (1) [facility] Phone: Start: 2016 Screening for Chlamy alda trachomatis Chlamydia screen [facility] Phone: Start: 2015 HIV screening [facility] screen [facility] Work Phone: Start: 2011 HPV vaccine (1 - 2-d ose series) HPV vaccine (1 - 2-dose series) [facility] Organization Phone: Start: 2001 Varicella vaccine (1 of 2 - 2-dose childhood series) Varicella vaccine (1 of 2 - 2-dose childhood series) [facility] Phone: Start: 2000 Hepatitis C screening Hepatitis C sc reen [facility] Organization Phone: Oxygen therapy [[facility] Data Set] Initiate Oxygen Therapy Protocol Respiratory Care Routine Daily until discontinued starting 10/10/2020 [facility] Phone: Comment on above: Daily until disconti nued starting 10/10/2020 Patient Education Foot Sprain ED [facility] Work Phone: Patient referral [facility] Work Phone: Phase I & II - meter ed glucose Phase I & II - metered glucose Point of Care Testing Routine As Needed until discontinued starting 10/10/2020 [facility] Phone: Comment on above: As Needed until disc ontinued starting 10/10/2020 Surgical Pathology Surgical Path ology Lab Routine Release Upon Ordering for 1 Occurrences starting 10/10/2020 [facility] Phone: Comment on above: Release Upon Orderin g for 1 Occurrences starting 10/10/2020 Payers Date Payer Category Payer Worker's Compensation [id number] 2023 Worker's Compensation [employer] [id number] 2023 Self-pay [id number] 2022 Private Health Insurance [id number] 2022 Private Health Insurance MADHAVI garza [id number] 2000 Unknown [id number] 2000 Unknown [id number] [id number] .593 2000 Unknown [id number] 2.16.840.1.005901.3.579.2 .593 2000 Unknown [id number] [id number] .593 2000 Unknown [id number] [id number] .593 2000 Unknown [id number] [id number] .593 2000 Unknown [id number] [id number] .593 2000 Unknown [id number] [id number] .593 2000 Unknown [id number] .1259 1959 Unknown [id number] Unknown [place] / [id number] Unknown [id number] .531 Unknown [id number] [id number] .531 Unknown [id number] 2.16.840.1.277260.3.579.2 .531 Unknown [id number] [id number] .531 Unknown [id number] .531 Worker's Compensation [employer] [place] [facility] [place] [id number] Social History Date Type Detail Facility Start: 10-10-2020 End: 04-03-2024 Tobacco smoking status NHIS Never smoker [facility] Start: 10-10-2020 End: 04-03-2024 Tobacco use and exposure Never used [facility] Start: 10-10-2020 Alcohol intake Lifetime non-d tyler (finding) [facility] Work Phone: Start: 10-10-2020 History SDOH Alcohol Frequency 1 [facility] Work Phone: Sex Assigned At Not on file [facility] Work Phone: Exposure to SARS-CoV -2 (event) Not sure [facility] Start: 2000 Sex Assigned At Female F [facility] Tobacco smoking stat NHIS Tobacco smoking consumption unknown [facility] Start: 02-08-2023 Gender identity Identifies as female gender (finding) [facility] Sexual orientation Not on file [facility] Start: 04-03-2024 Alcoholic beverage intake Defer [facility] History of Present illness Narrative 04-03-2024 Wicho Morillo DPM [facility]AC[facility] - 04/03/2024 3:30 PM EDT Note Date & Type Note Facility 04-03-2024 History of Presen t illness Narrative Patient: Fadia Lan : 2000 PCP: Danilo Dinero MD SUBJECTIVE This is a 23 y.o. female that presents today for a chief complaint of lateral ankle pain it started back in December when her palate truck at work ran over her foot he then had to back up the palate truck and when that occurred she felt her ankle go from right to left. Patient then went to the emergency room did an x-ray she continued to have pain and was seen by a occupational physician due to the fact that it was a workman's comp issue. Patient then had an MRI and a CT scan which we will get the results from that faxed over and put in her chart. Patient states that she was then sent to physical therapy they discharge her for physical therapy and informed her MRI and CT results only showed tendinosis of the peroneal brevis tendon. 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 Medications: Current Outpatient Medications: albuterol HFA (Ventolin HFA) 90 mcg/act inhaler, every 4 (four) hours., Disp: , Rfl: citalopram (CeleXA) 10 MG tablet, 1 (one) time each day at the same time., Disp: , Rfl: fludrocortisone (Florinef) 0.1 MG tablet, 1 (one) time each day at the same time., Disp: , Rfl: ibuprofen 800 MG tablet, TAKE 1 TABLET BY MOUTH EVERY 8 HOURS NEEDED WITH FOOD, Disp: , Rfl: levonorgestrel (Celine) 13.5 MG IUD, as directed Intrauterine, Disp: , Rfl: meloxicam (Mobic) 15 MG tablet, Take 1 tablet (15 mg) by mouth Daily Take one pill PO Daily, Disp: 30 tablet, Rfl: 0 midodrine (Proamatine) 2.5 MG tablet, , Disp: , Rfl: pyridostigmine (Mestinon) 60 MG tablet, Take 1 tablet twice a day by oral route., Disp: , Rfl: ROS: General: denies fever, chills, fatigue, malaise Unremarkable OBJECTIVE LE EXAM: DERM: Positive hair growth to b/l feet with good skin turgor noted. Negative openings in skin VASC: Palpable pedal pulsed b/l with warm to cool tibia to toes b/l NEURO: Gross sensation intact digits 1-10 and b/l feet ORTHO: +5/5 DF/PF/IN/EV right, +5/5 DF/PF/IN/EV left. 20 degrees inversion and 10 degrees eversion STJ b/l. Ankle ROM less than 10 degrees b/l. Positive pain on palpation to lateral ankle with pain coursing along the ATFL and CFL ligaments patient has instability she also has weakness of the left dorsiflexors and plantar flexors of her foot. She has pain coursing at the EDB muscle left and mild pain with the peroneal tendons between the insertion in the lateral fibula she has no erythema or edema noted Achilles is full without any type of palpable [employer] T[employer] she has full plantar flexion without pain in her Achilles insertion XRAY: US: DIAGNOSTIC ULTRASOUND 12 MEGAHERTZ LINEAR PROBE REVEALED: Hypoechoic signal noted within the lateral anterior ankle joint along with the ATFL and CFL ligaments left ASSESSMENT 1. Peroneal tendonitis of left lower extremity 2. Left ankle instability 3. Other enthesopathy of left foot and ankle 4. Ankle contracture, left PLAN Discussed with the patient her clinical findings and ultrasound findings consistent with lateral instability and attenuation of the ATFL and CFL ligaments of the lateral ankle. The patient was injected with 1 cc of 2% lidocaine plain and 1 cc of Kenalog 10 the ultrasonic guidance ATFL and CFL ligaments stj left A 12 megahertz linear probe was used for the injection in order to ensure exact placement and to avoid injection into underlying subcutaneous tissue. The patient was dispensed 1 ASO ankle gauntlet brace prefabricated ([id number]). They are instructed on the use of the brace. The brace was adjusted to ensure proper fit. The brace will be utilized perform immobilization and compression during the process. Patient was also given a prescription for meloxicam she is currently not taking any anti-inflammatories. Patient was instructed to wear the ASO brace with a good structured athletic shoe she is going to return in 2 weeks. BRISEIDA Madrid documented in this encounter [facility] Clinical Note 07-02-2022 Note Date & Type Note Facility 07-02-2022 Note OPERATIVE NOTE OPERATION DATE: 07/02/2022 PROCEDURE: Diagnostic laparoscopy with left ovarian cystectomy and lysis of bowel adhesions from the pelvic side wall. PREOPERATIVE DIAGNOSIS: Pelvic pain, left ovarian cyst. POSTOPERATIVE DIAGNOSIS: Pelvic pain, left ovarian cyst, bowel adhesions to the left pelvic side wall. ANESTHESIA: General. SURGEON: Dmitri Gold D.O. SUPERVISOR [employer] SALES: YASEMIN Stauffer URINE OUTPUT: Yellow and clear. [...] to Recovery Room in stable condition. [facility] History of Present illness Narrative 10-10-2020 [...] from the procedure. documented in this encounter [employer] Phone: Hospital Discharge instructions 10-10-2020 Instructions Note [...] surgeon in [address] Rao -- [place] office [phone] [place] office [phone] documented in this encounter [facility] [employer] Phone: Evaluation note Note Date & Type Note Facility Evaluation note Diagnosis Flank pain- Primary Abdominal pain, unspecified site Dermoid cyst of right ovary Post-op pain Other acute postoperative pain Pelvic pain Right ovarian cyst Other and unspecified ovarian cyst documented in this encounter [facility] [employer] Phone: Evaluation note Note Date & Type Note Facility Evaluation note No assessment information availa [facility] Work Phone: Evaluation note Note Date & Type Note Facility Evaluation note Diagnosis Contusion of left foot, initial encounter- Primary Left ankle instability Other joint derangement, not elsewhere classified, ankle and foot Peroneal tendonitis of left lower extremity Other enthesopathy of left foot and ankle Ankle contracture, left Sprain of left foot, initial encounter documented in this encounter [facility] Summary Purpose Family History No Family History Records FoundNo Family History Records FoundNo Family History Records FoundNo Family History Records FoundNo Family History Records Found Advance Directives Advance Directive Response Recorded Date/ Time Advance Directives No January 14 019 1:30pm Hospital Course Note HNO ID: [id number] Author: Alison Morales Service: General Internal Medicine [...] for HPV, meningitis (more content not included)... Chief Complaint and Reason for Visit Chief Complaint ankle injury Chief Complaint ankle injury S93.602A Chief Complaint ankle injury S93.602A S93.602A Chief Complaint ankle injury S93.602A S93.602A S93.602A Chief Complaint ankle injury S93.602A S93.602A S93.602A S93.602A Additional Source Comments INFORMATION SOURCE (unrecogn ized section and content) DATE CREATED AUTHOR 08/14/2019 [facility] DATE CREATED AUTHOR AUTHOR'S ORGANIZ ATION 10/15/2020 [facility] [place] [facility] DATE CREATED AUTHOR AUTHOR'S ORGANIZ ATION 08/26/2022 [facility] DATE CREATED AUTHOR AUTHOR'S ORGANIZ ATION 10/18/2023 [facility] DATE CREATED AUTHOR AUTHOR'S ORGANIZ ATION 03/18/2024 [facility] Reason for Visit (unrecogniz ed section and content) Reason Comments Flank Pain pain upon movement; left sided Reason Comments Foot Pain *BWC* LT foot with t endonosis Ordered Prescriptions (unrec ognized section and content) [...] needed for Pain 12 tablet 0 10/10/2020 Care Teams (unrecognized sec tion and content) Team Status: Active Member Role Status Cash Dinero MD Primary Care Provider Active Team Status: Inactive Member Role Status Cash Dinero MD Primary Care Provider Active Start: December 30, 2023 End: December 30, 2023 Karson Manzanares MD Emergency Provider Active St art: December 30, 2023 End: December 30, 2023 Team Status: Inactive Member Role Status Cash Dinero MD Primary Care Provider Active Start: January 09, 2024 End: January 09, 2024 Major Garces Jr, Attending Provider Active S tart: January 09, 2024 End: January 09, 2024 Team Status: Inactive Member Role Status Cash Dinero MD Primary Care Provider Active Start: January 25, 2024 End: January 25, 2024 Major Garces Jr, Attending Provider Active S tart: January 25, 2024 End: January 25, 2024 Team Status: Inactive Member Role Status Cash Dinero MD Primary Care Provider Active Start: February 20, 2024 End: February 20, 2024 Major Garces Jr, Attending Provider Active S tart: February 20, 2024 End: February 20, 2024 Team Status: Inactive Member Role Status Cash Dinero MD Primary Care Provider Active Start: March 09, 2024 End: March 09, 2024 Major Garces Jr, Attending Provider Active S tart: March 09, 2024 End: March 09, 2024 Manager Coding Relationship Specialty Start Date End Date Danilo Dinero MD [address] [place] [address] PCP - General Family Medicine 02/15/23 Manager Coding Relationship Specialty Start Date End Date Danilo Dinero MD [address] [place] [address] PCP - General Family Medicine 02/15/23 Goals (unrecognized section and content) Goals may be documented in a n alternate sectionGoals may be documented in an alternate sectionGoals may be documented in an alternate sectionGoals may be documented in an alternate sectionGoals may be documented in an alternate section FOR RECORDS PERTAINING TO PATIENTS WHO ARE [...] BE BASED ON THE PRIMARY CLINICAL RECORDS. [facility]. provides no warranty or guarantee of the accuracy or completeness of information in this document.
[2024-04-16 15:35] LABS: Bilirubin Urine NEGATIVE (NEGATIVE); Blood Urine LARGE (NEGATIVE); Clarity Urine SL CLOUDY (CLEAR); Color Urine YELLOW (YELLOW); Glucose Urine UA NEGATIVE (NEGATIVE); Ketones Urine NEGATIVE (NEGATIVE); Leukocyte Esterase Urine NEGATIVE (NEGATIVE); Nitrite Urine NEGATIVE (NEGATIVE); Protein Urine TRACE mg/dL (NEG/TRACE); Specific Gravity Urine >=1.030 (1.005-1.025); Urobilinogen Urine 0.2 EU/dL (0.2-1.0)
[2024-04-16 15:36] LABS: HCG Qualitative Urine* NEGATIVE (NEGATIVE); Internal Control Within Normal Limits
[2024-04-16 15:37] LABS: Urine Microscopic Indicated YES
[2024-04-16 15:44] LABS: Bacteria Urine SMALL #/HPF (NONE SEEN); Cast Seen? NONE SEEN #/LPF (NONE SEEN); Crystals Seen? None Seen #/HPF (None Seen); Mucus Urine LARGE (NONE SEEN); RBC Urine >100 #/HPF (0-2); Squamous Epithelial Cell Urine FEW #/LPF (NONE/RARE); Urine Culture Indicated YES
--- NOTE | 2024-04-16 15:44 | US_ITS ---
The [address] [address] Patient Name: GONZALEZ SHANKAR MRN: [id number] date: 2000 Sex: F Assigned Patient Location: ER Current Patient Location: ER Accession/Order Number: [id number] Exam Date: 04/16/2024 16:15 Report Date: 04/16/2024 18:26 At the request of: BHARGAV ISAACS Procedure: US pelvis transvaginal EXAM: US pelvis transvaginal HISTORY: left lower quad pain , LMP 04/01/2024 G0, history of right oophorectomy COMPARISON: 10/13/2023 TECHNIQUE: Transvaginal real-time grayscale and color Doppler imaging with pulsed duplex sonography was performed. FINDINGS: UTERUS: Unremarkable, measuring 7.6 centimeters in length. Anteverted. IUD is in place. ENDOMETRIUM: Not thickened measuring approximately 0.3 centimeters OVARIES: Right ovary is surgically absent. Left ovary measures 4.7 by 2.1 by 2.1 cm. with a cyst/follicle measuring up to 2.8 centimeters. Left ovary demonstrates color Doppler flow and appropriate spectral waveforms. MISCELLANEOUS: No significant free fluid. US/US pelvis transvaginal IMPRESSION: Postsurgical changes of right oophorectomy otherwise unremarkable pelvic ultrasound findings. Left ovarian cyst/follicle measuring up to 2.8 centimeters, likely physiologic. Electronically authenticated by: BERTA BELCHER Date: 04/16/2024 18:26
--- NOTE | 2024-04-16 15:45 | ED.ABDPAIN1 ---
HPI - Abdominal Pain General Chief Complaint: Abdominal Pain Stated Complaint: abdominal pain Time Seen by Provider: 04/16/24 15:29 Source: patient Mode of arrival: walk-in Limitations: no limitations History of Present Illness HPI narrative: Patient is a 23-year-old female who presents to the emergency department for a 5-day history of pain in the left lower quadrant of the abdomen and pelvis. She has a history of ovarian cyst and believes this may be the same. She has had no fevers, vomiting, diarrhea. She states she feels bloated on the left side. Pain does occasionally wrap to the back. She is resting comfortably in no distress at time of initial interview. She had her right ovary removed due to a 15 cm cyst laparoscopically, she denies any other abdominal surgeries. She is unsure of a possibility of . Related Data Home Medications ?Medication ?Instructions ?Recorded ?Confirmed birthcontrol 10/13/23 Previous Rx's ?Medication ?Instructions ?Recorded ketorolac 10 mg tablet 10 mg PO TID PRN pain #10 tabs 10/13/23 ondansetron 4 mg disintegrating 4 mg PO Q6H PRN nausea and 10/13/23 tablet vomiting #12 tabs cephalexin 500 mg capsule 500 mg PO Q8H 7 days #21 caps 04/16/24 hydrocodone 5 mg-acetaminophen 325 1 tab PO Q6H PRN pain 3 days #12 04/16/24 mg tablet tabs ketorolac 10 mg tablet 10 mg PO TID PRN pain #10 tabs 04/16/24 ondansetron 4 mg disintegrating 4 mg PO Q6H PRN nausea and 04/16/24 tablet vomiting #12 tabs Allergies Allergy/AdvReac Type Severity Reaction Status Date / Time Penicillins Allergy Swelling Verified 04/16/24 15:19 of Lip/Tongue/Throat Review of Systems ROS Constitutional Denies: fever or chills Ears, nose, mouth, and throat Denies: throat pain or nasal congestion Cardiovascular Denies: chest pain Respiratory Denies: shortness of breath or cough Gastrointestinal Denies: nausea or vomiting Genitourinary Reports: painful urination and pelvic pain Musculoskeletal Denies: back pain Integumentary/Breast Denies: rash Neurological Denies: numbness in extremities or weakness in extremities Hematologic/Lymphatic Denies: easy bruising or easy bleeding PFSH PFSH Social History Smoking status: Never smoker Little interest or pleasure in doing things: not at all Feeling down, depressed, or hopeless: not at all Exam Narrative Exam Narrative: Gen.: Awake, alert, in no distress Head: Normocephalic, atraumatic ENT: Moist mucous membranes Respiratory: No respiratory distress Gastrointestinal: Tenderness in the left lower quadrant with no guarding or rebound. No pain out of proportion on exam Extremities: Moves extremities equally Psych: Normal mood and affect Neuro: No focal neuro deficit Skin: Warm, dry, intact Constitutional Vital Signs, click to edit/add: Last Vital Signs Pulse 71 04/16/24 18:27 Resp 16 04/16/24 18:27 BP 106/58 04/16/24 18:27 Pulse Ox 100 04/16/24 18:27 O2 Del Method Room Air 04/16/24 18:27 Course Vital Signs Vital signs: Vital Signs Pulse Rate 88 04/16/24 15:14 Respiratory Rate 20 04/16/24 15:14 Blood Pressure 113/74 04/16/24 15:14 Pulse Oximetry 97 04/16/24 15:14 Oxygen Delivery Method Room Air 04/16/24 15:14 Pulse Rate 71 04/16/24 18:27 Respiratory Rate 16 04/16/24 18:27 Blood Pressure 106/58 04/16/24 18:27 Pulse Oximetry 100 04/16/24 18:27 Oxygen Delivery Method Room Air 04/16/24 18:27 MDM - Abdominal Pain MDM Narrative Medical decision making narrative: Patient treated with IV Toradol and Zofran. Urine specimen with evidence of urinary tract infection and ultrasound shows a 2.8 cm left ovarian cyst. Abdomen is soft and benign in the ER with stable vital signs. Patient will be placed on NSAIDs and nausea medication for home. Follow-up with PCP, lab studies are otherwise unremarkable. Return to the emergency department if symptoms change or worsen. SUPERVISED APC VISIT, PHYSICIAN ATTESTATION: Based on the medical record the care appears appropriate. ? Medical Records Attestation: I reviewed the patient's medical records. Lab Data Attestation: I reviewed the patient's lab results. Labs: Lab Results 04/16/24 04/16/24 Range/Units 15:25 15:53 WBC 7.7 (4.0-11.0) 10^3/uL RBC 4.31 (4.20-5.40) 10^6/uL Hgb 13.7 (12.0-16.0) g/dL Hct 39.8 (36.0-48.0) % MCV 92.3 (81.0-99.0) fL MCH 31.8 (26.7-34.0) pg MCHC 34.4 (29.9-35.2) g/dL RDW 11.5 (11.0-15.0) % Plt Count 335 (150-450) 10^3/uL MPV 8.7 L (9.5-13.5) fL Neut % (Auto) 59.3 (43.0-75.0) % Lymph % (Auto) 26.6 (20.5-60.0) % Mccreary % (Auto) 7.9 (1.7-12.0) % Eos % (Auto) 5.7 (0.9-7.0) % Baso % (Auto) 0.4 (0.2-2.0) % Neut # (Auto) 4.6 (1.4-6.5) 10^3/uL Lymph # (Auto) 2.0 (1.2-3.8) 10^3/uL Mccreary # (Auto) 0.6 (0.3-0.8) 10^3/uL Eos # (Auto) 0.4 (0.0-0.7) 10^3/uL Baso # (Auto) 0.0 (0.0-0.1) 10^3/uL Abs Immat Gran (auto) 0.01 (0.00-0.03) 10^3/uL Imm/Tot Granulo (auto) 0.1 (0.0-0.5) % Sodium 142 (136-145) mmol/L Potassium 3.8 (3.5-5.1) mmol/L Chloride 103 (98-107) mmol/L Carbon Dioxide 29.0 (21.0-32.0) mmol/L Anion Gap 13.8 BUN 12.0 (7.0-18.0) mg/dL Creatinine 0.76 (0.55-1.02) mg/dL Est GFR ( Amer) >60 (>=60 mL/min/1.73m^2) Est GFR (Non-Af Amer) >60 (>=60 mL/min/1.73m^2) BUN/Creatinine Ratio 15.8 Glucose 82 (74-106) mg/dL Calcium 9.5 (8.5-10.1) mg/dL Total Bilirubin 0.6 (0.2-1.0) mg/dL AST 12 L (15-37) U/L ALT 15 (14-59) U/L Alkaline Phosphatase 51 (46-116) U/L Total Protein 6.9 (6.4-8.2) g/dL Albumin 3.8 (3.4-5.0) g/dL Globulin 3.1 g/dL Albumin/Globulin Ratio 1.2 Urine Color Yellow (YELLOW) Urine Clarity Sl cloudy (CLEAR) Urine pH 6.0 (5.0-9.0) Ur Specific [place] >=1.030 A (1.005-1.025) Urine Protein Trace (NEG/TRACE) mg/dL Urine Glucose (UA) Negative (NEGATIVE) mg/dL Urine Ketones Negative (NEGATIVE) mg/dL Urine Occult Blood Large A (NEGATIVE) Urine Nitrite Negative (NEGATIVE) Urine Bilirubin Negative (NEGATIVE) Urine Urobilinogen 0.2 (0.2-1.0) EU/dL Ur Leukocyte Esterase Negative (NEGATIVE) Urine RBC >100 A (0-2) #/HPF Urine WBC 2-5 A (NONE SEEN) #/HPF Ur Squamous Epith Cells Few A (NONE/RARE) #/LPF Urine Crystals None seen (None Seen) #/HPF Urine Bacteria Small A (NONE SEEN) #/HPF Urine Casts None seen (NONE SEEN) #/LPF Urine Mucus Large A (NONE SEEN) Ur Culture Indicated? Yes Urine HCG, Qual Negative (NEGATIVE) Imaging Data US - abdomen: Attestation: I have reviewed the pertinent imaging results. Radiologist's impression: ITS Impressions Transvaginal US 04/16/24 15:44 IMPRESSION: Postsurgical changes of right oophorectomy otherwise unremarkable pelvic ultrasound findings. Left ovarian cyst/follicle measuring up to 2.8 centimeters, likely physiologic. Electronically authenticated by: BERTA BELCHER Date: 04/16/2024 18:26 Discharge Plan Discharge Chief Complaint: Abdominal Pain Clinical Impression: Abdominal pain, Cyst of left ovary, UTI (urinary tract infection) Patient Disposition: Home, Self-Care Time of Disposition Decision: 18:35 Condition: Good Prescriptions / Home Meds: New hydrocodone-acetaminophen 5-325 mg tablet 1 tab PO Q6H PRN (Reason: pain) 3 Days Qty: 12 0RF Rx Instructions: DX: N83.29 cephalexin 500 mg capsule 500 mg PO Q8H 7 Days Qty: 21 0RF ketorolac 10 mg tablet 10 mg PO TID PRN (Reason: pain) Qty: 10 0RF ondansetron 4 mg tablet,disintegrating 4 mg PO Q6H PRN (Reason: nausea and vomiting) Qty: 12 0RF No Action birthcontrol ketorolac 10 mg tablet 10 mg PO TID PRN (Reason: pain) Qty: 10 0RF ondansetron 4 mg tablet,disintegrating 4 mg PO Q6H PRN (Reason: nausea and vomiting) Qty: 12 0RF Print Language: Ukrainian Instructions: Ovarian Cyst (ED), Urinary Tract Infection in Women (ED), Acute Abdominal Pain (ED) Referrals: Todd José MD [Primary Care Provider] - 1 week
[2024-04-16] MEDS: KETOROLAC TROMETHAMINE 30 MG/ML VIAL IVP (16:03)
[2024-04-16] MEDS: ONDANSETRON PF 4 MG/2 ML VIAL IV (16:03)
[2024-04-16 16:23] LABS: Basophils Percent Auto 0.4 % (0.2-2.0); Eosinophils Absolute Auto 0.4 10^3/uL (0.0-0.7); Eosinophils Percent Auto 5.7 % (0.9-7.0); Hematocrit 39.8 % (36.0-48.0); Hemoglobin 13.7 g/dL (12.0-16.0); Immature Granulocytes Abs Auto 0.01 10^3/uL (0.00-0.03); Immature Granulocytes Pct Auto 0.1 % (0.0-0.5); Lymphocytes Percent Auto 26.6 % (20.5-60.0); Mean Corpuscular HGB Conc 34.4 g/dL (29.9-35.2); Mean Corpuscular Hemoglobin 31.8 pg (26.7-34.0); Mean Corpuscular Volume 92.3 fL (81.0-99.0); Mean Platelet Volume 8.7 fL (9.5-13.5); Monocytes Absolute Auto 0.6 10^3/uL (0.3-0.8); Monocytes Percent Auto 7.9 % (1.7-12.0); Neutrophils Absolute Auto 4.6 10^3/uL (1.4-6.5); Neutrophils Percent Auto 59.3 % (43.0-75.0); Platelet Count 335 10^3/uL (150-450); Red Blood Count 4.31 10^6/uL (4.20-5.40); Red Cell Distribution Width 11.5 % (11.0-15.0); White Blood Count 7.7 10^3/uL (4.0-11.0)
[2024-04-16 16:38] LABS: Alanine Aminotransferase 15 U/L (14-59); Albumin Globulin Ratio 1.2; Albumin Level 3.8 g/dL (3.4-5.0); Alkaline Phosphatase 51 U/L (46-116); Anion Gap 13.8; Aspartate Amino Transferase 12 U/L (15-37); BUN Creatinine Ratio 15.8; Bilirubin Total 0.6 mg/dL (0.2-1.0); Calcium 9.5 mg/dL (8.5-10.1); Chloride 103 mmol/L (98-107); Estimated GFR (African America >60 (>=60 mL/min/1.73m^2); Estimated GFR (Non-African Ame >60 (>=60 mL/min/1.73m^2); Globulin 3.1 g/dL; Glucose 82 mg/dL (74-106); Potassium 3.8 mmol/L (3.5-5.1); Sodium 142 mmol/L (136-145); Total Protein 6.9 g/dL (6.4-8.2)
[2024-04-16 18:27] VITALS: BP 106/58; PULSE 71; O2SAT 100
== END 2024-04-16 18:48 | disposition home or self-care (01) ==
PROVIDERS: Physician Assistant; Emergency Provider Student in an Organized Health Care Education/Training Program; PCP Family Medicine
DX: R10.9 Unspecified abdominal pain (principal); N39.0 Urinary tract infection, site not specified; N83.202 Unspecified ovarian cyst, left side; Z90.721 Acquired absence of ovaries, unilateral
CPT/HCPCS: 36415; 76830; 80053; 81001; 84703; 85025; 87086; 96374; 96375; 99285; J1885; J2405

== ENCOUNTER 2024-08-03 07:35 | Outpatient (OUT) | payer OTHER, SELFPAY ==
--- OUTSIDE RECORDS SUMMARY | 2024-08-03 07:47 | XMS_ITS | CCD ---
Author Organization [facility] Care Team Providers Care Quality Control Inspector Heading Name Role Phone Danilo Dinero MD Primary Care Provider [phone] ESTUARDO CARTER Attending Unavailable DANILO DINERO Primary Care Unavailable HOY ., DR CARRASCO Admitting Unavailable HOY ., DR CARRASCO Attending Unavailable HOY ., DR CARRASCO Primary Care Unavailable HOY ., DR CARRASCO Consulting Unavailable ASIF ., DR TEJEDA Admitting Unavailable ASIF ., DR TEJEDA Attending Unavailable HOY ., DR CARRASCO Primary Care Unavailable ASIF ., DR TEJEDA Consulting Unavailable ASIF ., DR TEJEDA Admitting Unavailable ASIF ., DR TEJEDA Attending Unavailable HOY ., DR CARRASCO Primary Care Unavailable SHUN, DR KRISTEN Bonilla Consulting Unavailable ASIF ., DR TEJEDA Consulting Unavailable ASIF ., DR TEJEDA Admitting Unavailable ASIF ., DR TEJEDA Attending Unavailable HOY ., DR CARRASCO Primary Care Unavailable ASIF ., DR TEJEDA Consulting Unavailable ZIEBER, DR SULY Salinas Consulting Unavailable ASIF ., DR TEJEDA Admitting Unavailable ASIF ., DR TEJEDA Attending Unavailable HOY ., DR CARRASCO Primary Care Unavailable ASIF ., DR TEJEDA Consulting Unavailable HOY ., DR CARRASCO Primary Care Unavailable SANDRA, DR GREYSON Joy Admitting Unavailsusie e SANDRA, DR GREYSON Joy Attending Unavailabl e SANDRA, DR GREYSON Joy Consulting Unavailabl e SHUN, DR KRISTEN Bonilla Consulting Unavailable ASIF ., DR TEJEDA Admitting Unavailable ASIF ., DR TEJEDA Attending Unavailable HOY ., DR CARRASCO Primary Care Unavailable AISF ., DR TEJEDA Consulting Unavailable ASIF ., DR TEJEDA Admitting Unavailable ASIF ., DR TEJEDA Attending Unavailable HOY ., DR CARRASCO Primary Care Unavailable ASIF ., DR TEJEDA Consulting Unavailable CAN PEÑA Consulting Unavailable LEÓN QUINTANA Consulting Unavailable MD Danilo Dinero Primary Care Provider [phone] MD Karson Manzanares Emergency Provider [phone] DO Major Garces Jr Attending Provider Danilo Dinero MD Primary Care Provider [phone] Radatz , Edward Attending Unavailable Danilo Dinero Primary Care Unavailable Radatz Jr, Edward Admitting Unavailable Radatz Jr, Edward Attending Unavailable Radatz Jr, Edward Admitting Unavailable Danilo Dinero M Primary Care Unavailable Radatz Jr, Edward Attending Unavailable Eduatz , Edward Admitting Unavailable Danilo Dinero Primary Care Unavailable Radatz Jr, Edward Attending Unavailable Eduatz , Edward Admitting Unavailable Danilo Dinero Primary Care Unavailable Radatz , Edward Admitting Unavailable Dez Sexton, Edward Attending Unavailable Danilo Dinero Primary Care Unavailable Karson Manzanares Admitting Unavailable Karson Manzanares Attending Unavailable Danilo Dinero Primary Care Unavailable ZAID SANTOS Attending Unavailable DMITRI GOLD Attending Unavailable DMITRI GOLD Attending Unavailable TOM ZAID R Attending Unavailable MENDEZ SANTOSEEM R Attending Unavailable DMITRI GOLD Attending Unavailable Allergies Allergy Classification Reported Allergen(s) Allergy Type Date of Onset Reaction(s) Facility (1 source) Penicillin Drug Allergy [facility] Repository (17 sources) Amoxicillin Drug Allergy 3 Unknown [facility] (17 sources) cefdinir Drug Allergy 3 Unknown [facility] (17 sources) Penicillin G Drug Allergy 3 Swelling, Unknown [facility] (1 source) Penicillins Drug allergy (disorder) 4 [facility] Repository (3 sources) Other Propensity to adverse reactions 5 [facility] Work Phone: Medications Current Medications Medication Drug Class(es) Dates Sig (Normalized) Sig (Original) acetaminophen 325 mg / HYDROcodone bitartrate 5 mg oral tablet (1 source) Opioid Agonist Start: 10-10-2020 End: 10-13-2020 HYDROcodone-acetami nophen (NORCO) 5-325 MG per tablet Indications: Post-op [...] (1 source) Start: 10-10-2020 lactated ringers infusion Ethinyl Estradiol / Ferrous fumarate / Norethindrone (3 sources) Estrogen Start: 06-28-2024 End: 07-26-2024 take 1 tablet by mouth once daily, then take 1 tablet by mouth once daily norethindrone-ethin yl estradiol (07/02) 1-20 MG-MCG tablet Indications: Encounter for surveillance of other contraceptive Take 1 tablet by mouth Daily for 28 days Take 1 tablet by mouth daily 28 tablet 11 06/28/2024 07/26/2024 Active 2 ml fentaNYL 0.05 mg/ml injection (4 sources) Opioid Agonist Start: 10-10-2020 fentaNYL (SUBLIMAZE) injection 50 mcg Start: 10-10-2020 fentaNYL (SUBL IMAZE) injection 25 mcg meloxicam 15 mg oral tablet (6 sources) Nonsteroidal Anti-inflammatory Drug Start: 04-03-2024 End: 05-03-2024 take 1 tablet by mouth once daily, then take 1 tablet by mouth once daily meloxicam (Mobic) 15 MG tablet Indications: Left ankle instability Take 1 tablet (15 mg) by mouth Daily Take one pill PO Daily 30 tablet 04/03/2024 04/23/2024 Discontinued ondansetron 4 mg disintegrating oral tablet (3 sources) Serotonin-3 Receptor Antagonist Start: 04-16-2024 End: 04-23-2024 take 1 tablet by mouth every eight hours as needed for nausea and vomiting ondansetron ODT (Zofran-ODT) 4 MG disintegrating tablet Take 4 mg by mouth every 8 (eight) hours if needed for nausea or vomiting 04/16/2024 04/23/2024 Discontinued 72 hr scopolamine 0.0139 mg/hr transdermal system (1 source) Anticholinergic Start: 10-10-2020 scopolamine (TRANSDERM-SCOP) transdermal patch 1 patch Completed/Discontinued Medications Medication Drug Class(es) Dates Sig (Normalized) Sig (Original) [id number] 200 actuat albuterol 0.09 mg/actuat metered dose inhaler (6 sources) beta2-Adrenergic Agonist End: 04-18-2024 albuterol HFA (Ventolin HFA) 90 mcg/act inhaler every 4 (four) hours. 04/18/2024 Discontinued cephalexin 500 mg oral capsule (12 sources) Cephalosporin Antibacterial Start: 04-16-2024 End: 06-28-2024 take 1 capsule by mouth in the morning, then take 1 capsule by mouth in the evening, then take 1 capsule by mouth at bedtime cephalexin (Keflex) 500 MG capsule Take 500 mg by mouth in the morning and 500 mg in the evening and 500 mg before bedtime. 04/16/2024 06/28/2024 Discontinued citalopram 10 mg oral tablet (6 sources) Serotonin Reuptake Inhibitor Start: 12-17-2022 End: 04-18-2024 citalopram (CeleXA) 10 MG tablet 1 (one) time each day at the same time. 12/17/2022 04/18/2024 Discontinued fluconazole 150 mg oral tablet (3 sources) Azole Antifungal Start: 06-28-2024 End: 07-02-2024 take 1 tablet by mouth once fluconazole (Diflucan) 150 MG tablet Indications: Vaginal discharge , Yeast infection Take 1 tablet (150 mg) by mouth every 3rd (third) day for 2 doses 2 tablet 06/28/2024 07/02/2024 fludrocortisone acetate 0.1 mg oral tablet (6 sources) Start: 12-17-2022 End: 04-18-2024 fludrocortisone (Florinef) 0.1 MG tablet 1 (one) time each day at the same time. 12/17/2022 04/18/2024 Discontinued ibuprofen 800 mg oral tablet (6 sources) Nonsteroidal Anti-inflammatory Drug Start: 07-02-2022 End: 04-18-2024 take 1 tablet by mouth every eight hours as needed ibuprofen 800 MG tablet TAKE 1 TABLET BY MOUTH EVERY 8 HOURS NEEDED WITH FOOD 07/02/2022 04/18/2024 Discontinued iopamidol (ISOVUE-370) 76 % injection 75 mL (1 source) Start: 10-10-2020 End: 10-10-2020 iopamidol (ISOVUE-370) 76 % injection 75 mL ketorolac tromethamine 10 mg oral tablet (7 sources) Nonsteroidal Anti-inflammatory Drug, Cyclooxygenase Inhibitor Start: 04-16-2024 End: 04-24-2024 take 1 tablet by mouth every eight hours as needed for pain ketorolac (Toradol) 10 MG tablet Take 10 mg by mouth every 8 (eight) hours if needed for moderate pain 04/16/2024 04/24/2024 Discontinued Start: 10-10-2020 take 1 tablet by kimmie th every six hours as needed for pain ketorolac (TORADOL) 10 MG tablet Take 1 tablet by mouth every 6 hours as needed for Pain 12 tablet 0 10/10/2020 Active levonorgestrel 0.551692 mg/hr intrauterine system (16 sources) Progestin, Progestin-containing Intrauterine Device End: 06-28-2024 levonorgestrel (Celine) 13.5 MG IUD as directed Intrauterine 06/28/2024 Discontinued (Other) metroNIDAZOLE 500 mg oral tablet (3 sources) Nitroimidazole Antimicrobial Start: 06-28-2024 End: 2024 take 1 tablet by mouth in the morning metroNIDAZOLE (Flagyl) 500 MG tablet Indications: Vaginal discharge , Yeast infection Take 1 tablet (500 mg) by mouth in the morning and 1 tablet (500 mg) before bedtime. Do all this for 7 days. Do not drink alcohol while taking this medication. 14 tablet 06/28/2024 2024 midodrine hydrochloride 2.5 mg oral tablet (6 sources) alpha-Adrenergic Agonist End: 04-18-2024 midodrine (Proamatine) 2.5 MG tablet 04/18/2024 Discontinued 2 ml prochlorperazine 5 mg/ml injection (1 source) Phenothiazine Start: 10-10-2020 End: 10-10-2020 prochlorperazine (COMPAZINE) injection 5 mg pyridostigmine bromide 60 mg oral tablet (6 sources) End: 04-18-2024 take 1 tablet by mouth twice daily pyridostigmine (Mestinon) 60 MG tablet Take 1 tablet twice a day by oral route. 04/18/2024 Discontinued Problems Active Problems Problem Classification Problem Date Documented Date Episodic/Chronic Abdominal pain (13 sources) Flank pain; Translations: [Unspecified abdominal pain] Onset: 06-11-2022 Episodic Contraceptive and procreative management (6 sources) Presence of (intrauterine) contraceptive device; Translations: [Intrauterine contraceptive device in situ] Onset: 05-15-2022 04-18-2024 Episodic Immunizations and screening for infectious disease (5 sources) Contact with and (suspected) exposure to infections with a predominantly sexual mode of transmission; Translations: [Encounter for screening for human papillomavirus (HPV)] Onset: 03-05-2022 Episodic Inflammatory diseases of female pelvic organs (1 source) 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 adhesions (postinfective); Translations: [FE PELV PERITON ADHES POSTINFECTIVE] Onset: 07-08-2022 Episodic Mycoses (2 sources) Mycosis; Translations: [Candidiasis, unspecified] 06-28-2024 Episodic Other acquired deformities (2 sources) Contracture of joint of left ankle; Translations: [Contracture, left ankle] 04-03-2024 Chronic Other and unspecified benign neoplasm (1 source) Mature cystic teratoma of right ovary; Translations: [Benign neoplasm of right ovary] Episodic Other connective tissue disease (6 sources) Peroneal tendinitis of left lower limb; Translations: [Peroneal tendinitis, left leg] 04-03-2024 Episodic Other connective tissue disease (4 sources) Enthesopathy of lower limb; Translations: [Other enthesopathy of left foot and ankle] 04-03-2024 Episodic Other female genital disorders (5 sources) Vaginal discharge; Translations: [Other specified noninflammatory disorders of vagina] Onset: 06-28-2024 06-28-2024 Episodic Other female genital disorders (5 sources) History of gynecological disorder; Translations: [Personal history of other diseases of the female genital tract] Onset: 06-28-2024 06-28-2024 Episodic Other nervous system disorders (1 source) Postoperative pain ; Translations: [Other acute postprocedural pain] Episodic Other non-traumatic joint disorders (4 sources) Instability of joint of left ankle; Translations: [Other instability, left ankle] 04-03-2024 Episodic Ovarian cyst (7 sources) Cyst of right ovary; Translations: [Unspecified ovarian cyst, right side] Onset: 06-16-2022 Episodic Superficial injury; contusion (2 sources) Contusion of left foot; Translations: [Contusion of left foot, initial encounter] 04-03-2024 Episodic Unclassified (3 sources) CONTACT W/AND (SUSP) EXPOS COVID-19; Translations: [CONTACT W/AND (SUSP) EXPOS COVID-19] Onset: 01-20-2022 Viral infection (1 source) COVID-19; Translations: [COVID-19] Onset: 01-20-2022 Past or Other Problems Problem Classification Problem Date Documented Da te Episodic/Chronic Other connective tissue disease (1 source) Pain in left foot; Translations: [Pain in left foot] Onset: 12-30-2023 Episodic Other screening for suspected conditions (not mental disorders or infectious disease) (4 sources) Encounter for screening for malignant neoplasm of cervix; Translations: [ENC SCREENING MALIG NEOPLASM CERV] Onset: 03-04-2022 Episodic Other upper respiratory infections (1 source) Acute sinusitis, unspecified; Translations: [ACUTE SINUSITIS UNSPECIFIED] Onset: 01-20-2022 Episodic Sprains and strains (8 sources) Sprain of left foot; Translations: [Unspecified sprain of left foot, initial encounter] Onset: 01-25-2024 12-30-2023 Episodic Unclassified (1 source) CONTACT W/AND (SUSP) EXPOS COVID-19; Translations: [CONTACT W/AND (SUSP) EXPOS COVID-19] Onset: 01-18-2022 Results Test Name Value Interpretation Reference Range Facility RECURRENT VAGINITIS (HTRX)on 06-29-2024 ATOPOBIUM VAGINAE 0 [facility] ATOPOBIUM VAGINAE Not detected [facility] BVAB 2,3 (BACTERIAL VAGINOSIS ASSOCIATED BACTERIA 2, 3); MOBILUNCUS SPP 0 [facility] BVAB 2,3 (BACTERIAL VAGINOSIS ASSOCIATED BACTERIA 2, 3); MOBILUNCUS SPP Not detected [facility] LAURA ALBICANS, PARAPSILOSIS, TROPICALIS 0 [facility] LAURA ALBICANS, PARAPSILOSIS, TROPICALIS Not detected [facility] LAURA GLABRATA 0 [facility] LAURA GLABRATA Not detected [facility] LAURA KRUSEI 0 [facility] LAURA KRUSEI Not detected [facility] CHLAMYDIA TRACHOMATIS 0 [facility] CHLAMYDIA TRACHOMATIS Not detected [facility] GARDNERELLA VAGINALIS 0 [facility] GARDNERELLA VAGINALIS Not detected [facility] MEGASPHAERA (TYPES 1, 2) 0 [facility] MEGASPHAERA (TYPES 1, 2) Not detected [facility] MYCOPLASMA GENITALIUM 0 [facility] MYCOPLASMA GENITALIUM Not detected [facility] NEISSERIA GONORRHOEAE 0 [facility] NEISSERIA GONORRHOEAE Not detected [facility] TRICHOMONAS VAGINALIS 0 [facility] TRICHOMONAS VAGINALIS Not detected [facility] IUD Removalon 04-23-2024 Dmitri Gold DO 04/23/2024 9:07 AM IUD Removal Date/Time: 04/23/2024 9:01 AM Performed by: Dmitri Gold DO Authorized by: Dmitri Gold DO Consent: Consent obtained: Written Consent given by: Patient Procedure risks and benefits discussed: yes Patient questions answered: yes Patient agrees, verbalizes understanding, and wants to proceed: yes Educational handouts given: no Instructions and paperwork completed: no Procedure: Removed with no complications: yes Removal due to mechanical complications of IUD: no Removal due to infection and inflammatory reaction: no [facility] XR foot LT min 3V*on 024 XR foot LT min 3V* [facility] [place] [address] XRay Report Signed Patient: Fadia Lan MR#: [id number] : 2000 Acct:[id number] Age/Sex: 23 / F ADM Date: 12/30/23 Loc: ER Room: Type: [facility] ER Attending Dr: Copies to: Karson Manzanares MD Ordering Provider: Karson Manzanares MD Date of Service: 12/30/23 XR/XR foot LT min 3V*: Extremity Injury, Lower ([id number]) XR/XR ankle LT min 3V*: Extremity Injury, [...] Marc Owen M.D.12/30/2023 8:13 AM Dictation Location: [place] [address] Transcribed By: [facility] 12/30/23812 Dictated By: Marc Owen DO 12/30/23810 Signed By: 12/30/23812 Normal [facility] CHLAMYDIA , NISSERIA, VAGINA LIS NAAon 08-19-2022 Chlamydia by HALLEY Negative Normal Negative [facility] Comment on above: Performed By: #### C TVNGNA ####[facility] [id number] [place] [address]DrGrayson Severino Gonococcus by HALLEY Negative Normal Negative [facility] Comment on above: Performed By: #### C TVNGNA ####[facility] [address] [place] [address]DrGrayson Severino Trich vag by HALLEY Negative Normal Negative [facility] Comment on above: Performed By: #### C TVNGNA ####[facility] [id number] [place] [address]DrGrayson Severino CBC AUTO DIFFon 07-02-2022 BASO # 0.0 103/ul Normal 0.0-0.1 [facility] Comment on above: Performed By: #### C BC #### [facility] [address] [place] [address] [address] Swapna Severino Basophils/100 WBC (Bld) 0.6 % Normal 0.2-2.0 [facility] Comment on above: Performed By: #### C BC #### [facility] [address] [place] [address] [address] Swapna Severino EO # 0.4 103/ul Normal 0.0-0.7 [facility] Comment on above: Performed By: #### C BC #### [facility] [address] [place] [address] Dr. Swapna Severino Eosinophils/100 WBC (Bld) 6.3 % Normal 0.9-7.0 [facility] Comment on above: Performed By: #### C BC #### [facility] [address] [place] [address] Dr. Swapna Severino Erythrocyte distribution width (RBC) [Ratio] 11.9 % Normal 11.0-15.0 [facility] Comment on above: Performed By: #### C BC #### [facility] [address] [place] [address] Dr. Swapna Severino Hematocrit (Bld) [Volume fraction] 39.8 % Normal 36.0-48.0 [facility] Comment on above: Performed By: #### C BC #### [facility] [address] [place] [address] Dr. Swapna Severino Hemoglobin (Bld) [Mass/Vol] 13.9 g/dL Normal 12.0-16.0 [facility] Comment on above: Performed By: #### C BC #### [facility] [address] [place] [address] Dr. Swapna Severino IG # 0.01 10e3/ul Normal 0.00-0.03 [facility] Comment on above: Performed By: #### C BC #### [facility] [address] [place] [address] Dr. Swapna Severino IG % 0.2 % Normal 0.0-0.5 [facility] Comment on above: Performed By: #### C BC #### [facility] [address] [place] [address] Dr. Swapna Severino LYMPH # 2.4 103/ul Normal 1.2-3.8 [facility] Comment on above: Performed By: #### C BC #### [facility] [address] [place] [address] Dr. Swapna Severino Lymphocytes/100 WBC (Bld) 37.4 % Normal 20.5-60.0 [facility] Comment on above: Performed By: #### C BC #### [facility] [address] [place] [address] Dr. Swapna Severino MANUAL DIFF REQ NO Normal [facility] Comment on above: Performed By: #### C BC #### [facility] [address] [place] [address] Dr. Swapna Severino MCH (RBC) [Entitic mass] 31.0 pg Normal 26.7-34.0 [facility] Comment on above: Performed By: #### C BC #### [facility] [address] [place] [address] Dr. Swapna Severino MCHC (RBC) [Mass/Vol] 34.9 g/dL Normal 29.9-35.2 [facility] Comment on above: Performed By: #### C BC #### [facility] [address] [place] [address] Dr. Swapna Severino MCV (RBC) [Entitic vol] 88.6 fL Normal 81.0-99.0 [facility] Comment on above: Performed By: #### C BC #### [facility] [address] [place] [address] Dr. Swapna Severino MONO # 0.6 103/ul Normal 0.3-0.8 [facility] Comment on above: Performed By: #### C BC #### [facility] [address] [place] [address] Dr. Swapna Severino Monocytes/100 WBC (Bld) 8.5 % Normal 1.7-12.0 [facility] Comment on above: Performed By: #### C BC #### [facility] [address] [place] [address] Dr. Swapna Severino NEUT # 3.1 103/ul Normal 1.4-6.5 [facility] Comment on above: Performed By: #### C BC #### [facility] [address] [place] [address] Dr. Swapna Severino Neutrophils/100 WBC (Bld) 47.0 % Normal 43.0-75.0 [facility] Comment on above: Performed By: #### C BC #### [facility] [address] [place] [address] Dr. Swapna Severino Platelet mean volume (Bld) [Entitic vol] 8.5 fL Critically low 9.5-13.5 [facility] Comment on above: Performed By: #### C BC #### [facility] [address] [place] [address] [address] Swapna Severino PLT 363 103/ul Normal 150-450 [facility] Comment on above: Performed By: #### C BC #### [facility] [id number] Swapna Severino RBC 4.49 106/ul Normal 4.20-5.40 [facility] Comment on above: Performed By: #### C BC #### [facility] [address] [place] [address] [address] Swapna Severino WBC 6.5 103/ul Normal 4.0-11.0 [facility] Comment on above: Performed By: #### C BC #### [facility] [address] [place] [address] [address] Swapna Severino CYTOLOGYon 07-02-2022 SENT TO REF LAB 07/02/2022 Normal [facility] Comment on above: Performed By: #### C YTO ####[facility] [id number] [place] [address]Dr. Swapna Severino PREG HCG QUALon 07-02-2022 , QUAL Negative Normal NEGATIVE [facility] Comment on above: Performed By: #### P REG #### [facility] [address] [place] [address] [address] Swapna Severino Covid-19 PCR (CVDTB)on 06-13 SARS-CoV-2 (COVID-19) RNA HALLEY+probe Ql (Unsp spec) Not detected Normal NOT DETECTED [facility] Comment on above: Result Comment: This test is not yet approved or cleared by the [place] FDA. When there are no FDA-approved or cleared tests available, and other criteria are met, FDA can make tests available under an emergency access mechanism called an Emergency Use Authorization (EUA). The EUA for this test is supported by the [place] of Health and Human Service's (HHS's) declaration [...] consistent with SARS-CoV-2. Performed By: #### [facility] #### [facility] [address] [place], [place] [address] Dr. Swapna Severino US PELVIS AND TRANSVAGon [...] by: SULY ANDERSON Date: 2022-06-17 07:48 Normal [facility] CBC AUTO DIFFon 06-11-2022 BASO # 0.0 103/ul Normal 0.0-0.1 [facility] Comment on above: Performed By: #### C BC #### [facility] [address] [place], [place] [address] Dr. Swapna Severino Basophils/100 WBC (Bld) 0.5 % Normal 0.2-2.[address] [facility] Comment on above: Performed By: #### C BC #### [facility] [address] [place], [place] [address] Dr. Swapna Severino EO # 0.4 103/ul Normal 0.0-0.7 [facility] Comment on above: Performed By: #### C BC #### [facility] [address] [place] [address] Dr. Swapna Sveerino Eosinophils/100 WBC (Bld) 6.8 % Normal 0.9-7.0 [facility] Comment on above: Performed By: #### C BC #### [facility] [address] [place] [address] Dr. Swapna Severino Erythrocyte distribution width (RBC) [Ratio] 11.9 % Normal 11.0-15.0 [facility] Comment on above: Performed By: #### C BC #### [facility] [address] [place] [address] Dr. Swapna Severino Hematocrit (Bld) [Volume fraction] 38.0 % Normal 36.0-48.0 [facility] Comment on above: Performed By: #### C BC #### [facility] [address] [place] [address] Dr. Swapna Severino Hemoglobin (Bld) [Mass/Vol] 13.2 g/dL Normal 12.0-16.0 [facility] Comment on above: Performed By: #### C BC #### [facility] [address] [place] [address] Dr. Swapna Severino IG # 0.01 10e3/ul Normal 0.00-0.03 [facility] Comment on above: Performed By: #### C BC #### [facility] [address] [place] [address] Dr. Swapna Severino IG % 0.2 % Normal 0.0-0.5 [facility] Comment on above: Performed By: #### C BC #### [facility] [address] [place] [address] Dr. Swapna Severino LYMPH # 1.7 103/ul Normal 1.2-3.8 [facility] Comment on above: Performed By: #### C BC #### [facility] [address] [place] [address] Dr. Swapna Severino Lymphocytes/100 WBC (Bld) 26.9 % Normal 20.5-60.0 [facility] Comment on above: Performed By: #### C BC #### [facility] [address] [place] [address] Dr. Swapna Severino MANUAL DIFF REQ NO Normal [facility] Comment on above: Performed By: #### C BC #### [facility] [address] [place] [address] Dr. Swapna Severino MCH (RBC) [Entitic mass] 31.4 pg Normal 26.7-34.0 [facility] Comment on above: Performed By: #### C BC #### [facility] [address] [place] [address] Dr. Swapna Severino MCHC (RBC) [Mass/Vol] 34.7 g/dL Normal 29.9-35.2 [facility] Comment on above: Performed By: #### C BC #### [facility] [address] [place] [address] Dr. Swapna Severino MCV (RBC) [Entitic vol] 90.3 fL Normal 81.0-99.0 [facility] Comment on above: Performed By: #### C BC #### [facility] [address] [place] [address] Dr. Swapna Severino MONO # 0.5 103/ul Normal 0.3-0.8 [facility] Comment on above: Performed By: #### C BC #### [facility] [address] [place] [address] Dr. Swapna Severino Monocytes/100 WBC (Bld) 7.9 % Normal 1.7-12.0 [facility] Comment on above: Performed By: #### C BC #### [facility] [address] [place] [address] Dr. Swapna Severino NEUT # 3.6 103/ul Normal 1.4-6.5 [facility] Comment on above: Performed By: #### C BC #### [facility] [address] [place] [address] Dr. Swapna Severino Neutrophils/100 WBC (Bld) 57.7 % Normal 43.0-75.0 [facility] Comment on above: Performed By: #### C BC #### [facility] [address] [place] [address] Dr. Swapna Severino Platelet mean volume (Bld) [Entitic vol] 8.6 fL Critically low 9.5-13.5 [facility] Comment on above: Performed By: #### C BC #### [facility] [address] [place] [address] Dr. Swapna Severino PLT 333 103/ul Normal 150-450 [facility] Comment on above: Performed By: #### C BC #### [facility] [address] [place] [address] Dr. Swapna Severino RBC 4.21 106/ul Normal 4.20-5.40 [facility] Comment on above: Performed By: #### C BC #### [facility] [address] [place] [address] Dr. Swapna Severino WBC 6.2 103/ul Normal 4.0-11.0 [facility] Comment on above: Performed By: #### C BC #### [facility] [address] [place] [address] Dr. Swapna Severino ER URINE PROFILEon 2 Bilirubin Ql (U) Negative Normal NEGATIVE [facility] Comment on above: Performed By: #### P REGU, ERUR #### [facility] [address] [place] [address] Dr. Swapna Severino Clarity (U) CLEAR Normal CLEAR [facility] Comment on above: Performed By: #### P REGU, ERUR #### [facility] [address] [place] [address] Dr. Swapna Severino Color (U) LT. YELLOW Normal YELLOW [facility] Comment on above: Performed By: #### P REGU, ERUR #### [facility] [address] [place] [address] Dr. Swapna Severino ERUAHD A micrscopic examination will be performed if indicated. Normal [facility] Comment on above: Performed By: #### P REGU, ERUR #### [facility] [address] [place] [address] Dr. Swapna Severino Glucose Ql (U) Negative Normal NEGATIVE [facility] Comment on above: Performed By: #### P REGU, ERUR #### [facility] [address] [address] [address] Swapna Severino Hemoglobin Ql (U) Negative Normal NEGATIVE [facility] Comment on above: Performed By: #### P REGU, ERUR #### [facility] [address] [address] [address] Swapna Severino Ketones Ql (U) Negative Normal NEGATIVE [facility] Comment on above: Performed By: #### P REGU, ERUR #### [facility] [address] [address] [address] Swapna Severino LEUKOCYTES Negative Normal NEGATIVE [facility] Comment on above: Performed By: #### P REGU, ERUR #### [facility] [address] [place] [address] Dr. Swapna Severino Nitrite Ql (U) Negative Normal NEGATIVE [facility] Comment on above: Performed By: #### P REGU, ERUR #### [facility] [address] [place] [address] Dr. Swapna Severino pH (U) 6.5 [pH] Normal 5-9 [facility] Comment on above: Performed By: #### P REGU, ERUR #### [facility] [address] [place] [address] Dr. Swapna Severino SPEC GRAVITY 1.015 Normal 1.005-<=1.02 5 [facility] Comment on above: Performed By: #### P REGU, ERUR #### [facility] [address] [address] [address] Swapna Severino UA PROTEIN Negative Normal NEGATIVE/ TRACE [facility] Comment on above: Performed By: #### P REGU, ERUR #### [facility] [address] [place] [address] Dr. Swapna Severino UR MICRO IND NOT INDICATED Normal [facility] Comment on above: Performed By: #### P REGU, ERUR #### [facility] [address] [place] [address] Dr. Swapna Severino Urobilinogen Qn (U) 0.2 {Arpan'U}/dL Normal 0.2 - 1. 0 [facility] Comment on above: Performed By: #### P GREY, ERUR #### [facility] [address] [address] [address] Swapna Severino URon 06-11-2022 , QUAL Negative Normal NEGATIVE [facility] Comment on above: Performed By: #### P GREY, ERUR #### [facility] [address] [address] [address] Swapna Severino PROF CHEM 8 (BAS METB)on Anion gap [Moles/Vol] 9.2 mmol/L Normal [facility] Comment on above: Performed By: #### B MP ####[facility] [address] [address]Dr. Swapna Severino Calcium [Mass/Vol] 8.7 mg/dL Normal 8.5-10.1 [facility] Comment on above: Performed By: #### B MP ####[facility] [address] [address]Dr. Swapna Severino Chloride [Moles/Vol] 103 mmol/L Normal 98-107 [facility] Comment on above: Performed By: #### B MP ####[facility] [address] [address]Dr. Swapna Severino CO2 [Moles/Vol] 31.1 mmol/L Normal 21.0-32.0 [facility] Comment on above: Performed By: #### B MP ####[facility] [address] [address]Dr. Swapna Severino Creatinine [Mass/Vol] 0.55 mg/dL Normal 0.55-1.02 [facility] Comment on above: Performed By: #### B MP ####[facility] [address] [address]Dr. Swapna Severino EGFR-AF ANGOLAN >60 Normal >=60 [facility] Comment on above: Performed By: #### B MP ####[facility] [address] [id number]. Swapna Severino EGFR-NON AF ANGOLAN >60 Normal >=60 [facility] Comment on above: Performed By: #### B MP ####[facility] [address] [address]Dr. Swapna Severino Glucose [Mass/Vol] 79 mg/dL Normal 74-106 [facility] Comment on above: Performed By: #### B MP ####[facility] [address] [address]Dr. Swapna Severino Potassium [Moles/Vol] 4.3 mmol/L Normal 3.5-5.1 [facility] Comment on above: Performed By: #### B MP ####[facility] [address] [address]Dr. Swapna Severino Sodium [Moles/Vol] 139 mmol/L Normal 136-145 [facility] Comment on above: Performed By: #### B MP ####[facility] [address] [address]Dr. Swapna Severino Urea nitrogen [Mass/Vol] 8.0 mg/dL Normal 7.0-18.0 [facility] Comment on above: Performed By: #### B MP ####[facility] [address] [place], [place] [address]Dr. Swapna Severino Urea nitrogen/Creatinine [Mass ratio] 14.5 mg/mg Normal [facility] Comment on above: Performed By: #### B MP ####[facility] [address] [place], [place] [address]Dr. Swapna Severino US PELVIS TRANSVAGon 12-30-2 022 US PELVIS TRANSVAG EXAMINATION: US PELVIS [...] by: KRISTEN HOFFMANN Date: 2022-06-11 12:44 Normal [facility] US PELVIS AND TRANSVAGon US PELVIS [...] by: KRISTEN HOFFMANN Date: 2022-05-11 14:02 Normal [facility] PAP ACOG PANEL 2: 21 to 29on 03-12-2022 . . Normal [facility] Comment on above: Performed By: #### [id number] #### [facility] [address] [place] [address] Dr. Swapna Severino Age Gdln ACOG Testing - Normal [facility] Comment on above: Performed By: #### [id number] #### [facility] [address] [address] [address] Swapna Severino DIAGNOSIS: Comment Normal [facility] Comment on above: Result Comment: NEGA TIVE FOR INTRAEPITHELIAL LESION OR MALIGNANCY. Performed By: #### 4 [id number] #### [facility] [address] [place] [address] Dr. Swapna Severino Methodology: Comment Normal [facility] Comment on above: Result Comment: This liquid based ThinPrep(R) pap test was screened with the use of an image guided system. Performed By: #### [id number] #### [facility] [address] [place] [address] Dr. Swapna Severino Note: Comment Normal [facility] Comment on above: Result Comment: The Pap smear is a screening test designed to aid in the detection of premalignant and malignant conditions of the uterine cervix. It is not a diagnostic procedure and should not be used as the sole means of detecting cervical cancer. Both false-positive and false-negative reports do occur. . Performed By: #### [id number] #### [facility] [address] [place] [address] Dr. Swapna Severino Performed by: Comment Normal [facility] Comment on above: Result Comment: Kathy Bland Manufacturer'S Service Representative (ASCP) Performed By: #### [id number] #### [facility] [address] [place] [address] Dr. wSapna Severino Reflex Criteria: Comment Normal [facility] Comment on above: Result Comment: The HPV DNA reflex criteria were not met with this specimen result therefore, no HPV testing was performed. . Performed By: #### 4 [id number] #### [facility] [address] [place] [address] Dr. Swapna Severino Specimen adequacy: Comment Normal [facility] Comment on above: Result Comment: Sati sfactory for evaluation. Endocervical and/or squamous metaplastic cells (endocervical component) are present. Performed By: #### 4 [id number] #### [facility] [address] [place] [address] Dr. Swapna Severino [facility]on SARS-CoV-2 (COVID-19) RNA HALLEY+probe Ql (Unsp spec) Detected Critically abnormal NOT DETECTED [facility] Comment on above: Result Comment: This test is not yet approved or cleared by the [place] FDA. When there are no FDA-approved or cleared tests available, and other criteria are met, FDA can make tests available under an emergency access mechanism called an Emergency Use Authorization (EUA). The EUA for this test is supported by the Chief Mechanical Officer of Health and Human Service's (HHS's) declaration [...] longer be used). Performed By: #### C [facility] #### [facility] [address] [place] [address] Dr. Swapna Severino CBC auto differentialOrdered By: Estuardo Carter on 10-10-2020 [employer] # 0.19 [employer] [facility] Work Phone: Absolute Immature Granulocyte <0.03 [employer] Work Phone: Absolute Lymph # 1.98 [employer] [facility] Work Phone: Absolute [place] # 0.45 [facility] Work Phone: Basophils (Bld) [#/Vol] 0.03 10*3/uL [employer] Work Phone: Basophils/100 WBC (Bld) 1 % 0 - 2 % [facility] Work Phone: Differential Type NOT REPORTED [employer] Phone: Eosinophils/100 WBC (Bld) 3 % 1 - 4 % [employer] Phone: Hematocrit (Bld) [Volume fraction] 40.1 % 36.3 - 47.1 % [employer] Phone: Hemoglobin.gastrointest inal spec 1 Ql (Stl) 13.8 g/dL 11.9 - 15.1 g/dL [employer] Phone: Immature granulocytes/100 WBC (Bld) 0 % 0 [employer] Phone: Interpretation and review of laboratory results Abnormal [employer] Phone: Lymphocytes/100 WBC (Bld) 32 % 25 - 45 % [employer] Work Phone: MCH (RBC) [Entitic mass] 31.4 pg 25.2 - 33.5 pg [employer] Work Phone: MCHC (RBC) [Mass/Vol] 34.4 g/dL 28.4 - 34.8 g/dL [employer] Work Phone: MCV (RBC) [Entitic vol] 91.1 fL 82.6 - 102.9 fL [employer] Work Phone: Monocytes/100 WBC (Bld) 7 % 2 - 8 % [facility] Work Phone: NRBC Automated 0.0 0.0 per 100 WBC [employer] Phone: Platelet distribution width (Bld) [Ratio] 11.4 % Low 11.8 - 14.4 % [employer] Work Phone: Platelet Estimate NOT REPORTED [employer] Work Phone: Platelet mean volume (Bld) [Entitic vol] 8.4 fL 8.1 - 13.5 fL [employer] Work Phone: Platelets (Bld) [#/Vol] 365 10*3/uL [employer] Phone: RBC (Bld) [#/Vol] 4.40 10*6/uL 3.95 - 5.1 1 m/uL [employer] Work Phone: RBC (Bld) [#/Vol] NOT REPORTED [employer] Work Phone: Segmented neutrophils/100 WBC (Bld) 57 % 34 - 64 % [employer] Work Phone: Segs Absolute 3.56 [employer] Work Phone: WBC (Bld) [#/Vol] 6.2 10*3/uL [employer] Work Phone: WBC (Bld) [#/Vol] NOT REPORTED [facility] Work Phone: CBC with Diffon 10-10-2020 Abs. Basophil 0.03 k/uL Normal 0.00-0.20 [facility] Comment on above: Performed By: #### S ED, CDP, CP, HCG #### [facility] [address] [place] [address] [place] [address] Country Manager: Kristen Howe MD Abs.Imm.Granulocyte <0.03 Normal 0.00-0.30 [facility] Comment on above: Performed By: #### S ED, CDP, CP, HCG #### [address] [place] [address] Country Manager: Kristen Howe MD Abs.Neutrophil (Seg) 3.56 k/uL Normal 1.80-8.00 [facility] Comment on above: Performed By: #### S ED, CDP, CP, HCG #### [address] [place] [address] Country Manager: Kristen Howe MD Basophils/100 WBC (Bld) 1 % Normal 0-2 [facility] Comment on above: Performed By: #### S ED, CDP, CP, HCG #### [address] [place] [address] Country Manager: Kristen Howe MD Eosinophils (Bld) [#/Vol] 0.19 10*3/uL Normal 0.00-0.44 [facility] Comment on above: Performed By: #### S ED, CDP, CP, HCG #### [address] [place] [address] Country Manager: Kristen Howe MD Eosinophils/100 WBC (Bld) 3 % Normal 1-4 [facility] Comment on above: Performed By: #### S ED, CDP, CP, HCG #### [address] [place] [address] Country Manager: Kristen Howe MD Erythrocyte distribution width (RBC) [Ratio] 11.4 % Low 11.8-14.4 [facility] Comment on above: Performed By: #### S ED, CDP, CP, HCG #### [facility] [address] [place] [address] Country Manager: Kristen Howe MD Hematocrit (Bld) [Volume fraction] 40.1 % Normal 36.3-47.1 [facility] Comment on above: Performed By: #### S ED, CDP, CP, HCG #### [facility] [address] [place] [address] Country Manager: Kristen Howe MD Hemoglobin (Bld) [Mass/Vol] 13.8 g/dL Normal 11.9-15.1 [facility] Comment on above: Performed By: #### S ED, CDP, CP, HCG #### [facility] [address] [place], [place] [id number] Country Manager: Kristen Howe MD Immature granulocytes/100 WBC (Bld) 0 % Normal 0 [facility] Comment on above: Performed By: #### S ED, CDP, CP, HCG #### [facility] [address] [place] [address] Country Manager: Kristen Howe MD Lymphocytes (Bld) [#/Vol] 1.98 10*3/uL Normal 1.20-5.20 [facility] Comment on above: Performed By: #### S ED, CDP, CP, HCG #### [facility] [address] [place] [address] Country Manager: Kristen Howe MD Lymphocytes/100 WBC (Bld) 32 % Normal 25-45 [facility] Comment on above: Performed By: #### S ED, CDP, CP, HCG #### [facility] [address] [place] [address] Country Manager: Kristen Howe MD MCH (RBC) [Entitic mass] 31.4 pg Normal 25.2-33.5 [facility] Comment on above: Performed By: #### S ED, CDP, CP, HCG #### [address] [place], [place] [id number] Country Manager: Kristen Howe MD MCHC (RBC) [Mass/Vol] 34.4 g/dL Normal 28.4-34.8 [facility] Comment on above: Performed By: #### S ED, CDP, CP, HCG #### [address] [place], [place] [address] Country Manager: Kristen Howe MD MCV (RBC) [Entitic vol] 91.1 fL Normal 82.6-102.9 [facility] Comment on above: Performed By: #### S ED, CDP, CP, HCG #### [address] [place], [place] [address] Country Manager: Kristen Howe MD Monocytes (Bld) [#/Vol] 0.45 10*3/uL Normal 0.10-1.40 [facility] Comment on above: Performed By: #### S ED, CDP, CP, HCG #### [address] [place], [facility] Country Manager: Kristen Howe MD Monocytes/100 WBC (Bld) 7 % Normal 2-8 [facility] Comment on above: Performed By: #### S ED, CDP, CP, HCG #### [address] [place], [place] [id number] Country Manager: Kristen Howe MD Neutrophil (Seg) 57 % Normal 34-64 [facility] Comment on above: Performed By: #### S ED, CDP, CP, HCG #### [address] [place], [facility] Country Manager: Kristen Howe MD NRBC Automated 0.0 per 100 WBC Normal 0.0 [facility] Comment on above: Performed By: #### S ED, CDP, CP, HCG #### [facility] [address] [place] [address] Country Manager: Kristen Howe MD Platelet mean volume (Bld) [Entitic vol] 8.4 fL Normal 8.1-13.5 [facility] Comment on above: Performed By: #### S ED, CDP, CP, HCG #### [facility] [address] [place] [address] Country Manager: Kristen Howe MD Platelets (Bld) [#/Vol] 365 10*3/uL Normal 138-453 [facility] Comment on above: Performed By: #### S ED, CDP, CP, HCG #### [facility] [address] [place] [address] Country Manager: Kristen Howe MD RBC (Bld) [#/Vol] 4.40 10*6/uL Normal 3.95-5.11 [facility] Comment on above: Performed By: #### S ED, CDP, CP, HCG #### [address] [place] [address] Country Manager: Kristen Howe MD WBC (Bld) [#/Vol] 6.2 10*3/uL Normal 4.5-13.5 [facility] Comment on above: Performed By: #### S ED, CDP, CP, HCG #### [facility] [address] [place] [address] Country Manager: Kristen Howe MD Auto Diff Performed NOT REPORTED Normal [facility] Comment on above: Performed By: #### S ED, CDP, CP, HCG #### [facility] [address] [place], [place] [id number] Country Manager: Kristen Howe MD Platelet Estimate NOT REPORTED Normal [facility] Comment on above: Performed By: #### S ED, CDP, CP, HCG #### [facility] [address] [place], [place] [phone] Country Manager: Kristen Howe MD RBC morphology finding Nom (Bld) NOT REPORTED Normal [facility] Comment on above: Performed By: #### S ED, CDP, CP, HCG #### [facility] [address] [place], [place] [id number] Country Manager: Kristen Howe MD WBC Morphology NOT REPORTED Normal [facility] Comment on above: Performed By: #### S ED, CDP, CP, HCG #### [facility] [address] [place] [address] Country Manager: Kristen Howe MD CT ABDOMEN PELVIS W [...] variant arcuate configuration of the uterine cavity. Peritoneum/Retroperi toneum: No free air or free fluid. The [...] Charles Virgen MD 10/10/20 Final result Normal [facility] CT ABDOMEN PELVIS W IV CONTR AST Additional Contrast? 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 This results in compressive affects on the right ureter and mild hydronephrosis. Follow-up with gynecology is recommended due to the large size of this mass and associated compressive affects. [facility] [employer] Work Phone: EXAMINATION: CT OF THE ABDOMEN [...] variant arcuate configuration of the uterine cavity. Peritoneum/Retroperi toneum: No free air or free fluid. The aorta is normal in caliber. The visceral branches are patent. No lymphadenopathy. Bones/Soft Tissues: No abnormality identified. [employer] Phone: [employer], [employer] Incoming Radiant Results From [employer] - 10/10/2020 3:13 PM EDT EXAMINATION: CT [...] variant arcuate configuration of the uterine cavity. Peritoneum/Retroperi toneum: No free air or free fluid. The [...] of this mass and associated compressive affects. [employer] Phone: Comp Metabolic Profon 2020 (cont.) Normal [facility] Comment on above: Result Comment: Aver age GFR for 20-29 years old: 116 mL/min/1.73sq m Chronic Kidney Disease: <60 mL/min/1.73sq m Kidney failure: <15 mL/min/1.73sq m eGFR calculated using average adult body mass. Additional eGFR calculator available at: http://www.[employer]/multiple_crcl_2012.htm Performed By: #### S ED, CDP, CP, HCG #### [facility] [address] [place] [address] Dr. [place], [place] [phone] Country Manager: Kristen Howe MD Albumin [Mass/Vol] 4.5 g/dL Normal 3.5-5.2 [facility] Comment on above: Performed By: #### S ED, CDP, CP, HCG #### [facility] [address] [place] [address] Country Manager: Kristen Howe MD Albumin/Glob Ratio 2.0 Normal 1.0-2.5 [facility] Comment on above: Performed By: #### S ED, CDP, CP, HCG #### [facility] [address] [place] [address] Country Manager: Kristen Howe MD Alkaline Phos 62 U/L Normal 35-104 [facility] Comment on above: Performed By: #### S ED, CDP, CP, HCG #### [facility] [address] [place] [address] Country Manager: Kristen Howe MD ALT [Catalytic activity/Vol] 9 U/L Normal 5-33 [facility] Comment on above: Performed By: #### S ED, CDP, CP, HCG #### [facility] [address] [place], [place] [phone] Country Manager: Kristen Howe MD Anion gap [Moles/Vol] 7 mmol/L Low 9-17 [facility] Comment on above: Performed By: #### S ED, CDP, CP, HCG #### [facility] [address] [place] [address] Dr. [place], [place] [phone] Country Manager: Kristen Howe MD AST [Catalytic activity/Vol] 16 U/L Normal <32 [facility] Comment on above: Performed By: #### S ED, CDP, CP, HCG #### [facility] [address] [place], [place] [phone] Country Manager: Kristen Howe MD Bilirubin [Mass/Vol] 0.52 mg/dL Normal 0.3-1.2 [facility] Comment on above: Performed By: #### S ED, CDP, CP, HCG #### [address] [place], [place] [phone] Country Manager: Kristen Howe MD BUN/CRE Ratio 13 Normal 9-20 [facility] Comment on above: Performed By: #### S ED, CDP, CP, HCG #### [address] [place], [place] [phone] Country Manager: Kristen Howe MD Calcium [Mass/Vol] 9.8 mg/dL Normal 8.6-10.4 [facility] Comment on above: Performed By: #### S ED, CDP, CP, HCG #### [facility] [address] [place] [address] [place] [address] Country Manager: Kristen Howe MD Chloride [Moles/Vol] 102 mmol/L Normal 98-107 [facility] Comment on above: Performed By: #### S ED, CDP, CP, HCG #### [facility] [address] [place], [place] [phone] Country Manager: Kristen Howe MD CO2 [Moles/Vol] 31 mmol/L Normal 20-31 [facility] Comment on above: Performed By: #### S ED, CDP, CP, HCG #### [facility] [address] [place], [place] [phone] Country Manager: Kristen Howe MD Creatinine [Mass/Vol] 0.64 mg/dL Normal 0.50-0.90 [facility] Comment on above: Performed By: #### S ED, CDP, CP, HCG #### [facility] [address] [place], [place] [phone] Country Manager: Kristen Howe MD GFR, Amer >60 Normal >60 [facility] Comment on above: Performed By: #### S ED, CDP, CP, HCG #### [address] [place] [address] Country Manager: Kristen Howe MD GFR,non Amer >60 Normal >60 [facility] Comment on above: Performed By: #### S ED, CDP, CP, HCG #### [facility] [address] [place] [address] [place] [address] Country Manager: Kristen Howe MD Glucose [Mass/Vol] 94 mg/dL Normal 70-99 [facility] Comment on above: Performed By: #### S ED, CDP, CP, HCG #### [address] [place], [place] [phone] Country Manager: Kristen Howe MD Potassium [Moles/Vol] 3.5 mmol/L Low 3.7-5.3 [facility] Comment on above: Performed By: #### S ED, CDP, CP, HCG #### [address] [place], [place] [phone] Country Manager: Kristen Howe MD Protein [Mass/Vol] 6.8 g/dL Normal 6.4-8.3 [facility] Comment on above: Performed By: #### S ED, CDP, CP, HCG #### [facility] [address] [place] [address] Dr[address] [place], [place] [phone] Country Manager: Kristen Howe MD Sodium [Moles/Vol] 140 mmol/L Normal 135-144 [facility] Comment on above: Performed By: #### S ED, CDP, CP, HCG #### [facility] [address] [place], [place] [phone] Country Manager: Kristen Howe MD Staging: Normal [facility] Comment on above: Result Comment: Stag e 1: Some kidney damage normal GFR Stage 2: Mild kidney damage GFR 60-89 Stage 3: Moderate kidney damage GFR 30-59 Stage 4: Severe kidney damage GFR 15-29 Stage 5: Severe kidney damage GFR <15 ESRD - chronic treatment by dialysis or transplant Performed By: #### S ED, CDP, CP, HCG #### [facility] [address] [place] [address] [place] [place], [place] [phone] Country Manager: Kristen Howe MD Urea nitrogen [Mass/Vol] 8 mg/dL Normal 6-20 [facility] Comment on above: Performed By: #### S ED, CDP, CP, HCG #### [facility] [address] [place] [address] [place] [address] Country Manager: Kristen Howe MD Comprehensive Metabolic Pane lOrdered By: Estuardo Carter on 10-10-2020 Albumin [Mass/Vol] 4.5 g/dL 3.5 - 5.2 g/dL Mr. [employer] Phone: Albumin/Globulin [Mass ratio] 2.0 {ratio} Mr. [employer] Phone: ALP (Bld) [Catalytic activity/Vol] 62 U/L 35 - 104 U/L Mr. [employer] Phone: ALT [Catalytic activity/Vol] 9 U/L 5 - 33 U/L Mr. [employer] Phone: Anion gap [Moles/Vol] 7 mmol/L Low 9 - 17 mmol/L Mr. [employer] Phone: AST [Catalytic activity/Vol] 16 U/L <32 [facility] [employer] Phone: Bilirubin [Mass/Vol] 0.52 mg/dL 0.3 - 1 .2 mg/dL [facility] Phone: Calcium [Mass/Vol] 9.8 mg/dL 8.6 - 10. 4 mg/dL Mr. [employer] Phone: Chloride [Moles/Vol] 102 mmol/L 98 - 10 7 mmol/L Mr. [employer] Phone: CO2 [Moles/Vol] 31 mmol/L 20 - 31 mmol/L Mr. [employer] Phone: Creatinine [Mass/Vol] 0.64 mg/dL 0.50 - 0.90 mg/dL Mr. [employer] Phone: Free PSA/Total PSA [Mass fraction] 6.8 g/dL 6.4 - 8.3 g/dL Mr. [employer] Phone: GFR >60 >60 mL/min [employer] Phone: GFR Non- >60 >60 mL/min Mr. [employer] Phone: Glucose [Mass/Vol] 94 mg/dL 70 - 99 mg/dL Mr. [employer] Phone: Interpretation and review of laboratory results Abnormal Mr. [employer] Phone: Potassium [Moles/Vol] 3.5 mmol/L Low 3.7 - 5.3 mmol/L Mr. [employer] Phone: Sodium [Moles/Vol] 140 mmol/L 135 - 144 mmol/L Mr. [employer] Phone: Urea nitrogen (BldV) [Mass/Vol] 8 mg/dL 6 - 20 mg/dL Mr. [employer] Phone: Urea nitrogen/Creatinine (Bld) [Mass ratio] 13 [employer] Phone: HCG Qualitative, SerumOrdere d By: Estuardo Carter on 10-10-2020 hCG Qual Negative NEGATIVE Mr. [employer] Phone: Comment on above: Specimens with hCG l evels near the threshold of the test (25 mIU/mL) may give a negative or indeterminate result. In such cases, another test should be performed with a new specimen in 48-72 hours. If early is suspected clinically in this setting, correlation with quantitative serum b-hCG level is suggested. [employer] has confirmed the use of plasma for this test. This has not been cleared or approved by the U.S. Food and Drug Administration. The FDA has determined that such clearance is not necessary. HCG Screen, Bloodon 10-11-19 21 HCG Screen, Blood Negative Normal NEG [facility] Comment on above: Result Comment: Spec imens with hCG levels near the threshold of the test (25 mIU/mL) may give a negative or indeterminate result. In such cases, another test should be performed with a new specimen in 48-72 hours. If early is suspected clinically in this setting, correlation with quantitative serum b-hCG level is suggested. [employer] has confirmed the use of plasma for this test. This has not been cleared or approved by the U.S. Food and Drug Administration. The FDA has determined that such clearance is not necessary. Performed By: #### S ED, CDP, CP, HCG #### [facility] [address] [place] [address] [place], [place] [phone] Country Manager: Kristen Howe MD Laboratory - Chemistry and C hemistry - challengeOrdered By: Estuardo Carter on 10-10-2020 GFR/1.73 sq M.predicted MDRD (S/P/Bld) [Vol rate/Area] Mr. [employer] Phone: Comment on above: Average GFR for 20-2 9 years old: 116 mL/min/1.73sq m Chronic Kidney Disease: <60 mL/min/1.73sq m Kidney failure: <15 mL/min/1.73sq m eGFR calculated using average adult body mass. Additional eGFR calculator available at: http://www.[employer].Aldagen/multiple_crcl_2012.htm Stage 1: Some kidney damage normal GFR Stage 2: Mild kidney damage GFR 60-89 Stage 3: Moderate kidney damage GFR 30-59 Stage 4: Severe kidney damage GFR 15-29 Stage 5: Severe kidney damage GFR <15 ESRD - chronic treatment by dialysis or transplant Microscopic UrinalysisOrdere d By: Estuardo Carter on 10-10-2020 - [facility] Work Phone: Amorphous, UA NOT REPORTED None [facility] Work Phone: Bacteria, UA NOT REPORTED None [facility] Work Phone: Casts UA NOT REPORTED /LPF [facility] [place] Work Phone: Crystals, UA NOT REPORTED None /HPF [facility] Work Phone: Epithelial Cells UA 0 TO 2 [facility] [place] Work Phone: Mucus, UA NOT REPORTED None [facility] [place] Work Phone: Other Observations UA NOT REPORTED NOT REQ. [facility] Work Phone: RBC, UA 20 TO 50 [facility] [place] Work Phone: Renal Epithelial, UA NOT REPORTED 0 /HPF [facility] Work Phone: Trichomonas, UA NOT REPORTED None [facility] Work Phone: WBC, UA 0 TO 2 [facility] [place] Work Phone: Yeast, UA NOT REPORTED None [facility] [place] Work Phone: Sedimentation Rateon 021 Sedimentation Rate 3 mm Normal 0-20 [facility] Comment on above: Performed By: #### S ED, CDP, CP, HCG #### [facility] [address] [place] [address] Country Manager: Kristen Howe MD Sedimentation RateOrdered By : Estuardo Carter on 10-10-2020 Sed Rate 3 mm 0 - 20 mm [facility] Work Phone: Surgical Pathologyon 021 Surgical Pathology (NOTE) -- Diagnosis -- RIGHT OVARY, OOPHORECTOMY:- BENIGN DERMOID CYST (MATURE CYSTIC TERATOMA), MULTIPLE PIECES.- SEE MICROSCOPIC DESCRIPTION. Greyson Alan, Electronically Signed [facility]/10/14/2020 Clinical Information Pre-op Diagnosis: DERMOID CYST Operative [...] lining, is a 0.5 cm papillary focus. Simulation Software Engineer sections 4cs with papillary focus included in [...] identified SURGICAL PATHOLOGY CONSULTATION [facility]: [facility] [id number] Path Number: [id number] [employer] [facility] ANATOMIC PATHOLOGY [facility] [place], [place] [address] Normal [facility] Comment on above: Performed By: #### P PPVS #### [employer] [address] [place] [address] Country Manager: MD NATAN Calzada w/Reflex Cultureon 2020 Acetoacetic Acid,Ur Negative Normal NEG [facility] Comment on above: Performed By: #### U ANTAN EDUARDOX #### [facility] [address] [place], [place] [phone] Country Manager: Kristen Howe MD Bilirubin, SemiQt,Ur Negative Normal NEG [facility] Comment on above: Performed By: #### U MICAO, UAX #### [facility] [address] [place], [place] [phone] Country Manager: Kristen Howe MD Color (U) YELLOW Normal YEL [facility] Comment on above: Performed By: #### U MICAO, UAX #### [facility] [address] [place] [address] Dr. [place], [place] [phone] Country Manager: Kristen Howe MD Glucose Ql (U) Negative Normal NEG [facility] Comment on above: Performed By: #### U MICAO, UAX #### [facility] [address] [place] [address] [place]. [place], [place] [phone] Country Manager: Kristen Howe MD Hemoglobin, Ur 3+ Abnormal NEG [facility] Comment on above: Performed By: #### U MICAO, UAX #### [address] [place], [place] [phone] Country Manager: Kristen Howe MD Leukocyte esterase Test strip Ql (U) Negative Normal [facility] Comment on above: Performed By: #### U MICAO, UAX #### [facility] [address] [place] [address] Dr. [place], [place] [phone] Country Manager: Kristen Howe MD Nitrite,Ur Negative Normal [facility] Comment on above: Performed By: #### U MICAO, UAX #### [facility] [address] [place], [place] [phone] Country Manager: Kristen Howe MD PH,Ur 6.0 Normal 5.0-9.0 [facility] Comment on above: Performed By: #### U MICAO, UAX #### [facility] [address] [place] [address] Country Manager: Kristen Howe MD Protein Ql (U) TRACE Abnormal NEG [facility] Comment on above: Performed By: #### U MICAO, UAX #### [facility] [address] [place] [address] [place]. [place], [place] [phone] Country Manager: Kristen Howe MD Spec. [place],Ur 1.025 High 1.010-1.020 [facility] Comment on above: Performed By: #### U MICAO, UAX #### [facility] [address] [place] [address] [place] [address] Country Manager: Kristen Howe MD Turbidity CLEAR Normal CLEAR [facility] Comment on above: Performed By: #### U MICAO, UAX #### [address] [place] [address] Country Manager: Kristen Howe MD Urobilinogen,Ur Normal Normal NORM [facility] Comment on above: Performed By: #### U MICAO, UAX #### [address] [place], [place] [phone] Country Manager: Kristen Howe MD Comment NOT REPORTED Normal [facility] Comment on above: Performed By: #### U MICAO, UAX #### [address] [place], [place] [phone] Country Manager: Kristen Howe MD Urinalysis Reflex to Culture Ordered By: Estuardo Carter on 10-10-2020 Bilirubin Urine Negative NEGATIVE [facility] Work Phone: Color, UA YELLOW YELLOW [facility] [place] Work Phone: Glucose, Ur Negative NEGATIVE [facility] [place] Work Phone: Interpretation and review of laboratory results Abnormal [facility] [place] Work Phone: Ketones Ql (U) Negative NEGATIVE [facility] Work Phone: Leukocyte esterase Test strip Ql (U) Negative NEGATIVE [facility] Work Phone: Nitrite, Urine Negative NEGATIVE [facility] Work Phone: pH, UA 6.0 [facility] Work Phone: Protein, UA TRACE Abnormal NEGATIVE [facility] Work Phone: Specific [place], UA 1.025 High [facility] Work Phone: Turbidity UA CLEAR CLEAR [facility] Work Phone: Urinalysis Comments NOT REPORTED [facility] [employer] Work Phone: Urine Hgb 3+ Abnormal NEGATIVE [facility] Phone: Urobilinogen, Urine Normal Normal [facility] Phone: Urinalysis,Microon 1 ----- Normal [facility] Comment on above: Performed By: #### U MICAO, UAX #### [facility] [address] [place] [address] Country Manager: Kristen Howe MD Epithelial cells LM Ql (Urine sed) 0 TO 2 Normal 0-25 [facility] Comment on above: Performed By: #### U MICAO, UAX #### [facility] [address] [place] [address] Country Manager: Kristen Howe MD Urine RBC's 20 TO 50 Normal 0-2 [facility] Comment on above: Performed By: #### U MICAO, UAX #### [facility] [address] [place] [address] Country Manager: Kristen Howe MD Urine WBC's 0 TO 2 Normal 0-5 [facility] Comment on above: Performed By: #### U MICAO, UAX #### [facility] [address] [place] [address] Country Manager: Kristen Howe MD Amorphous sediment LM Ql (Urine sed) NOT REPORTED Normal [facility] Comment on above: Performed By: #### U MICAO, UAX #### [facility] [address] [place] [address] Country Manager: Kristen Howe MD Bacteria NOT REPORTED Normal NONE [facility] Comment on above: Performed By: #### U MICAO, UAX #### [facility] [address] [place] [address] Country Manager: Kristen Howe MD Casts NOT REPORTED Normal [facility] Comment on above: Performed By: #### U MICAO, UAX #### [facility] [address] [place], [place] [phone] Country Manager: Kristen Howe MD Crystals LM Nom (Urine sed) NOT REPORTED Normal [facility] Comment on above: Performed By: #### U MICAO, UAX #### [facility] [address] [place], [place] [phone] Country Manager: Kristen Howe MD Epithelial, Renal NOT REPORTED Normal 0 [facility] Comment on above: Performed By: #### U MICAO, UAX #### [facility] [address] [place] [address] Country Manager: Kristen Howe MD Mucus Strands NOT REPORTED Normal [facility] Comment on above: Performed By: #### U MICAO, UAX #### [facility] [address] [place], [place] [phone] Country Manager: Kristen Howe MD Other Observations NOT REPORTED [facility] Comment on above: Performed By: #### U MICAO, UAX #### [facility] [address] [place], [place] [phone] Country Manager: Kristen Howe MD Trichomonas NOT REPORTED Normal NONE [facility] Comment on above: Performed By: #### U ALESHA, UAX #### [facility] [address] [place] [address] Country Manager: Kristen Howe MD Yeast NOT REPORTED Normal NONE [facility] Comment on above: Performed By: #### U ALESHA, UAX #### [facility] [address] [place] [address] Country Manager: Kristen Howe MD CNCOon 06-29-2019 CNCO Letter Text Normal [facility] CNOVon 06-29-2019 CNOV Office Visit (SYNCMN) FADIA LAN ([id number]) 1 F Date Time Provider Department 06/29/19 2:45 PM CELESTE WEISS SYNN During your visit today, we recorded the following information about you: Weight Height 53.3 kg 1.676 m Celeste Weiss Jr, DO, DO 07/06/2019 8:58 AM Signed [facility] [place] [facility] Department of Cardiovascular Medicine SECTION OF CARDIAC PACING and ELECTROPHYSIOLOGY OUTPATIENT VISIT DATE June 29, 2019 OUTPATIENT VISIT TYPE NEW PRIMARY CARE PHYSICIAN: Danilo Dinero MD [address] [place] [address] REFERRING PHYSICIAN: Danilo Dinero MD [facility] [address] [facility] [address] . NURSING INTAKE HISTORY: Fadia Lan is [...] shortness of breath, and palpitations during her pre-syncopal/syncopa l episodes. She has random dizziness everyday. She [...] habits-No, Blood in stool, Dark black stools-No. Neurological/Psychia tric: Weakness, paralysis-yes, Numbness-yes, Tingling-yes, Tremor-yes, Nervousness or [...] extensive local evaluation including assessment at the [facility] electrophysiology autonomic laboratory by Dr. pierson, tilt table testing, multiple drug trials, but continues to have events. My findings, recommendations, and plan of care will be added to the electronic medical record and forwarded to the [facility] physicians by [employer] and to the patient and the local [...] the medical intensive care unit of the [facility]. She underwent extensive evaluation including repeat troponins, [...] reduction. 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 Love PUMP HOUSE OPERATOR states that there was a borderline increase [...] signs. EKG reveals normal sinus rhythm, normal MA and QRS intervals, no evidence of long QT interval, accessory pathway, Brugada's syndrome, previous infarction, or early repolarization. Assessment/Plan:19-y ear-old with recurrent episodes of altered awareness unresponsiveness [...] suggestions. This note was partially generated using [employer] voice recognition system, and there may be some incorrect words, spellings, and punctuation that were not noted in checking the note before saving. Homer Weiss DO CC: Shanae Weeks [phone] (Work) [address] [place] [phone] Nurse Practitioner [facility] [address] [place] [phone] henri Prettyg Neurology [facility] laura garcia Referring Provider: DANILO DINERO [[id number]] Allergies As of Date: 06/29/2019 (No Known Allergies) Date Reviewed: 06/29/2019 Reviewed by: Celeste Weiss DO - Fully Assessed Primary Visit Diagnosis:Syncope and collapse [R55] Other Visit Diagnoses:Near syncope [R55] Chest pain, unspecified type [R07.9] Orthostatic lightheadedness [R42] Order(s):OUTSIDE VENDOR CARDIAC OUTPATIENT TELEMETRY [] Order #: [id number]: 1 EPIL EEG LONG [[id number]] Order #: [id number]: 1 FUTURE Prescriptions as of 06/29/2019 Sig: [...] by CELESTE WEISS DO on 07/06/19 Normal [facility] CNOV Office Visit (NE50MN) FADIA LAN ([id number]) 1 F Date Time Provider Department 06/29/19 11:00 AM OUSMANE GAMBOA NE50MN During your visit today, we recorded the following information about you: Pulse Blood pressure Weight 76/minute 96/60 54.9 kg Ousmane Gamboa MD PhD 07/11/2019 2:46 PM Signed .[facility] Neurological [facility] Patient Name: Fadia Lan Date [...] thought she was hungary, she went to [employer], she started to drove home, somehow, she [...] 3 day-EEG on 05/18/2019 after she left [facility]. She had a mild spells recorded [...] She was diagnosed of having POTs in [place] in [place]. Psychosocial: No depression, no anxiety. Insomnia. 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 Driving: not for now. PRIOR ANTICONVULSANT HISTORY: LEV, Following AEDs were associated with side effects: LEV (bizare behavior) PREVIOUS OSH EVALUATIONS: BEM 05/12/2019-05/16/2019 : normal MRI w/wo 03/15/2019 Normal ? Neurology consultation 05/12/2019; ? Ramesh Scales MD [...] tend to occur in the evenings or as400 developer (3AM-5AM- per mother she is awake prior [...] her to local ED, then transferred to [facility] MICU for further management. Prior work-up [...] high school and quit her job at [employer] due to episodes. ? Impression/Recommend ations This is Ms. Fadia Lan a 18 [...] with prolonged EEG monitoring. Brain Tumor NA DYER AND WASHER Infections NA Developmental Delay NA Family history [...] had BEM recording for several days at [facility] in May 2019 with normal EEG. 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 Fadia Lan [address] [place] [id number] Referring Provider: SELF [200] Allergies As of Date: 06/29/2019 (No Known Allergies) Date Reviewed: 06/29/2019 Reviewed by: Celeste Weiss DO - Fully Assessed Reason for Visit: New Patient [172] Primary Visit Diagnosis:Psychogeni c nonepileptic seizure [F44.5] Prescriptions as of 06/29/2019 [...] BEE LYNCH, OUSMANE PHD on 07/11/19 Normal [facility] ECG COMPLETEon 06-29-2019 ECG COMPLETE NAME : FADIA LAN PID : [id number] : [id number] Gender : Female Race : ORD : [id number] Procedure Date : Jun 29 2019 13:19:31 Edit Date : Jul 02 2019 13:58:19 Diagnosis:NORMAL SINUS RHYTHM NORMAL ECG Confirmed by OLIVIER RUBIO M.D. ([id number]) on 07/02/2019 1:55:40 PM Ventricular Rate : 75 BPM Atrial Rate : 75 BPM P-R Interval : 140 ms QRS Duration : 94 ms Q-T Interval : 392 ms QTC Calculation(Bazett) : 437 ms P [place] : 65 degrees R [place] : 62 degrees T [place] : 35 degrees Test Reason : Location : 314 : J14 Overread By : OLIVIER RUBIO M.D. Edited By : OLIVIER RUBIO M.D. Referred By : CELESTE WEISS Acquired by : KEVIN MANZANARES [facility] OBSOLETEon 06-29-2019 OBSOLETE Procedure (NEAU) FADIA LAN ([id number]) 1 F Date Time Provider Department 06/29/19 9:00 AM AUTONOMIC 2 NEUR MAIN NEAU During your visit today, we recorded the following information about you: Referring Provider: SELF [200] Allergies As of Date: 06/29/2019 (No Known Allergies) Date Reviewed: 06/29/2019 Reviewed by: DO Teressa Webb Fully Assessed Reason for Visit: Neurologic Problem [...] by MARIA R GARCIA DO on 06/29/19 [facility] PROCEDUREon 06-29-2019 PROCEDURE HNO ID: [id number] Author: Celeste Weiss DO Service: ? Author [...] showing sinus tachycardia. Celeste Weiss Jr, DO [facility] Name: FADIA LAN : 2000 Ordering provider: CELESTE WEISS Indication: R55 Syncope and collapse Type of monitor: Continuous Telemetry Enrollment dates: 07/11/2019 - 07/31/2019 [facility] PROGRESSon 06-29-2019 PROGRESS HNO ID: [id number] Author: Celeste Weiss DO Service: ? Author Type: Physician Type: Progress Notes Filed: 07/06/2019 8:58 AM Note Text: Heart and Vascular [place] [facility] Department of Cardiovascular Medicine SECTION OF CARDIAC PACING and ELECTROPHYSIOLOGY OUTPATIENT VISIT DATE June 29, 2019 OUTPATIENT VISIT TYPE NEW PRIMARY CARE PHYSICIAN: Danilo Dinero MD [address] [place] [address] REFERRING PHYSICIAN: Danilo Dinero MD [facility] [address] [facility] [address] . NURSING INTAKE HISTORY: Fadia Lan is [...] shortness of breath, and palpitations during her pre-syncopal/syncopa l episodes. She has random dizziness everyday. She [...] habits-No, Blood in stool, Dark black stools-No. Neurological/Psychia tric: Weakness, paralysis-yes, Numbness-yes, Tingling-yes, Tremor-yes, Nervousness or [...] [facility] autonomic laboratory by Dr. pierson, tilt table testing, multiple drug trials, but continues to have events. My findings, recommendations, and plan of care will be added to the electronic medical record and forwarded to the [facility] physicians by [employer] and to the patient and the local [...] the medical intensive care unit of the [facility]. She underwent extensive evaluation including repeat troponins, [...] reduction. 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 Love PUMP HOUSE OPERATOR states that there was a borderline increase [...] signs. EKG reveals normal sinus rhythm, normal MA and QRS intervals, no evidence of long QT interval, accessory pathway, Brugada's syndrome, previous infarction, or early repolarization. Assessment/Plan:19-y ear-old with recurrent episodes of altered awareness unresponsiveness [...] suggestions. This note was partially generated using Engiver voice recognition system, and there may be some incorrect words, spellings, and punctuation that were not noted in checking the note before saving. Homer Weiss DO CC: Shanae Weeks [phone] (Work) [address] [place] [phone] Nurse Practitioner León Stallings Internal Medicine [address] [place] [id number] henri Gamboa Neurology Ramesh garcia [facility] PROGRESS HNO ID: [id number] Author: Ousmane Gamboa Service: ? Author Type: Physician Type: Progress Notes Filed: 07/11/2019 2:46 PM Note Text: .[facility] Neurological [place] [facility] Patient Name: Fadia Lan Date [...] thought she was hungary, she went to [employer], she started to drove home, somehow, she [...] 3 day-EEG on 05/18/2019 after she left [facility]. She had a mild spells recorded [...] She was diagnosed of having POTs in [place] in Mar. Psychosocial: No depression, no anxiety. Insomnia. 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 Driving: not for now. PRIOR ANTICONVULSANT HISTORY: LEV, Following AEDs were associated with side effects: LEV (bizare behavior) PREVIOUS OSH EVALUATIONS: BEM 05/12/2019-05/16/2019 : normal MRI w/wo 03/15/2019 Normal ? Neurology consultation 05/12/2019; ? Ramesh Scales MD [...] tend to occur in the evenings or as400 developer (3AM-5AM- per mother she is awake prior [...] her to local ED, then transferred to [facility] MICU for further management. Prior work-up [...] high school and quit her job at [employer] due to episodes. ? Impression/Recommend ations This is Ms. Fadia Lan a 18 [...] with prolonged EEG monitoring. Brain Tumor NA DYER AND WASHER Infections NA Developmental Delay NA Family history [...] had BEM recording for several days at [facility] in May 2019 with normal EEG. 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 Fadia Lan [address] [facility] [address] Normal [facility] CNOVon 06-15-2019 CNOV Office Visit (SYNCMN) FADIA LAN ([id number]) 1 F Date Time Provider Department 06/15/19 9:00 AM HEMODYNAMIC LAB SYNCMN During your visit today, we recorded the following information about you: HE Garcia, Viacore 06/28/2019 7:35 AM Signed UNIVERSAL PROTOCOL / [...] Comfort Measures: Added pillow under knees and Creighton Pacemaker: No Other Blood work:None Hemodynamic Tests: Dinamap: Standard Cuff on left Arm Cardiac outputs with Tc 99m via 22 ga angio in right median antecubital. Cold PYP 1.5 ml at 10:06 by DC. Baseline:Trivial SA; MA 140 ms #1: Supine 4.0 mCi at 10:37 by KB BP: 93/57; HR: 65 Moderate SA #2: Supine 8.1 mCi at 10:50 by KB BP: 98/59; HR: 65 Moderate SA #3: HUP60d L-DN 11.8 mCi at 11:07 by KB BP:104/65; HR: 81Mild SA Signature: HOMER Garcia, HE Ejection Fraction - MACEDONIAN-Gated: BP: 98/54, HR: 66, MGAQ-HR: 69 Mild SA Note: Test completed uneventfully. KB. IV discontinued at 11:40 by KB. AFINOS Security card received: yes. Staff involved in procedure: HOMER Garcia, HE; Shameka Gray, RN, Parris Mario RDCS Procedure Finish Time: 11:40 Referring Provider: FLAVIO TRAN ([facility]) [[id number]] Allergies As of Date: 06/15/2019 (No Known Allergies) Date Reviewed: 06/04/2019 Reviewed by: Flavio ([facility]) Melissa - Fully Assessed Primary Visit Diagnosis:Syncope, unspecified syncope type [R55] Other Visit Diagnoses:Syncope and collapse [R55] Near syncope [R55] Chest pain, unspecified type [R07.9] Orthostatic dizziness [R42] Orthostatic lightheadedness [R42] Encounter for examination of blood pressure without abnormal findings [Z01.30] Order(s):HEMODYNAMIC ECHOCARDIOGRAM [39379649] Order #: [id number]. #:[id number]- CCFQty: 1 SALINE LOCK DISCONTINUE [[id number]] Order #: [id number]: 1 Prescriptions as of 06/15/2019 Sig: POTASSIUM [...] Status:Closed by BENIGNO TAYLOR on 06/28/19 Normal [facility] PROGRESSon 06-15-2019 PROGRESS HNO ID: [id number] Author: Debbie Chinchilla (Tech) Service: ? Author Type: Ceramic Tile Setter Type: Progress Notes Filed: 06/28/2019 7:35 AM [...] Comfort Measures: Added pillow under knees and Creighton Pacemaker: No Other Blood work:None Hemodynamic Tests: Dinamap: Standard Cuff on left Arm Cardiac outputs with Tc 99m via 22 ga angio in right median antecubital. Cold PYP 1.5 ml at 10:06 by DC. Baseline:Trivial SA; MA 140 ms #1: Supine 4.0 mCi at 10:37 by KB BP: 93/57; HR: 65 Moderate SA #2: Supine 8.1 mCi at 10:50 by KB BP: 98/59; HR: 65 Moderate SA #3: HUP60d L-DN 11.8 mCi at 11:07 by KB BP:104/65; HR: 81Mild SA Signature: HOMER Garcia CNMT Ejection Fraction - MACEDONIAN-Gated: BP: 98/54, HR: 66, MGAQ-HR: 69 Mild SA Note: Test completed uneventfully. KB. IV discontinued at 11:40 by SAIDA. AFINOS Security card received: yes. Staff involved in procedure: HOMER Garcia, [facility]; Shameka Gray, RN, Parris Mario RDCS Procedure Finish Time: 11:40 Normal [facility] CNOVon 06-04-2019 CNOV Office Visit (NEADMN) FADIA LAN ([id number]) 1 F Date Time Provider Department 06/04/19 1:00 PM FLAVIO TRAN (JOSE) AQUILINO During your visit today, we recorded the following information about you: Pulse Respiration Blood pressure Weight 89/minute 18/minute 115/68 54.9 kg Height 1.676 m Flavio Tran APRN.CNP 06/04/2019 2:07 PM Signed Fadia Lan is [...] workup of POTS. She saw Dr. Mendez's PUMP HOUSE OPERATOR Josi. She had a tilt table test [...] flat. She had a recent admission to [facility] with EEG monitoring done for 5 [...] disturbance, mood disorder and recent psychosocial stressors. HEMATOLOGIC/LYMPHATI C/IMMUNOLOGIC:Negati ve for prolonged bleeding, bruising easily or swollen [...] 5/5biceps, 5/5 wrist extension, and 5/5 hand sterilisation technician. Finger extensor 5/5. Finger flexor 5/5. Pronation [...] of ankles. ? Coordination: Finger-to- nose-finger and fwly-dp-wyxm intact bilaterally. No ataxia of arms. No [...] with more than 50% of the total zztx-ou-cvyh time of the visit in counseling / [...] - TILT TABLE EVALUATION Flavio Tran MSN, RISK OFFICER, DISPENSARY TECHNICIAN-C 1. This office note has been dictated [...] Allergies) Date Reviewed: 06/04/2019 Reviewed by: Flavio (Extrusion Die Coordinator) Melissa - Fully Assessed Reason for Visit: New Patient [172] Primary Visit Diagnosis:Syncope and collapse [R55] Other Visit Diagnoses:Near syncope [R55] Chest pain, unspecified type [R07.9] Orthostatic dizziness [R42] Orthostatic lightheadedness [R42] Disturbance of skin sensation [R20.9] Order(s):ECG COMPLETE [ECG01] Order #: [id number] FUTURE HEMODYNAMIC ECHOCARDIOGRAM [71254427] Order #: [id number]: 1 FUTURE perflutren lipid microspheres (DEFINITY) 1.1 [...] saline.Disp: 1.3 mLRfl: 0 TILT TABLE EVALUATION [80907PDH] Order #: [id number]: 1 NEURO CARDIO AUTONOMIC REFLEX W/WO TILT [9821573] Order #: [id number] SKIN BIOPSY FOR NEUROPATHY/CNL [6160456] Order #: [id number] CONSULT TO NEUROLOGY [9019] Order #: [id number]: 1 FUTURE HEMODYNAMIC TILT W/IV START [1148342] Order #: [id number]: 1 VITAMIN B12 BLOOD [SQB12] Order #: [id number] FUTURE VITAMIN B1 (THIAMINE), WHOLE BLOOD [SQB1WB] Order #: [id number] FUTURE VITAMIN B6/PYRIDOXIN [SQVITB6] Order #: [id number] FUTURE METHYLMALONIC ACID [SQMMA] Order #: [id number] FUTURE COPPER BLOOD [SQCOPPER] Order #: [id number] FUTURE IMMUNOFIXATION SCREEN, SERUM [SQIFESC] Order #: [id number] FUTURE Prescriptions as of 06/04/2019 Sig: POTASSIUM [...] Status:Closed by FLAVIO TRAN on 06/04/19 Normal [facility] Copperon 06-04-2019 Copper 76 ug/dL Low 85-155 [facility] Comment on above: Result Comment: This test was developed and its performance characteristics determined by [facility]'s [facility] [place] ([facility]). It has not been cleared or approved by the FDA. [facility] is regulated under CLIA as qualified to perform high complexity testing. This test is used for clinical purposes. It should not be regarded as investigational or for research. Performed By: #### C BC, CMP, MG1, PHOS #### [facility] [address] [place], [place] [address] SONI Screen, Serumon 06-04-20 19 Protein [Mass/Vol] No M protein is identified. Normal No M protein is identified. [facility] Comment on above: Performed By: #### C BC, CMP, MG1, PHOS #### [facility] [address] [place], [place] [address] Staff Review Reviewed by Lyla Hoyos MD. ([phone]) Normal [facility] Comment on above: Performed By: #### C BC, CMP, MG1, PHOS #### [facility] [address] [place], [place] [address] Methylmalonic Acidon 019 Methylmalonic Acid 161 nmol/L Normal 79-376 [facility] Comment on above: Result Comment: This test was developed and its performance characteristics determined by [facility]'s [facility] Path[facility] and Laboratory Medicine [place] ([facility]). It has not been cleared or approved by the FDA. [facility] is regulated under CLIA as qualified to perform high complexity testing. This test is used for clinical purposes. It should not be regarded as investigational or for research. Performed By: #### C BC, CMP, MG1, PHOS #### [facility] [address] [place] [id number] PROGRESSon 06-04-2019 PROGRESS HNO ID: [id number] Author: Flavio Tran Service: ? Author Type: [...] workup of POTS. She saw Dr. Mendez's PUMP HOUSE OPERATOR Josi. She had a tilt table test [...] flat. She had a recent admission to [facility] with EEG monitoring done for 5 [...] disturbance, mood disorder and recent psychosocial stressors. HEMATOLOGIC/LYMPHATI C/IMMUNOLOGIC:Negati ve for prolonged bleeding, bruising easily or swollen [...] 5/5biceps, 5/5 wrist extension, and 5/5 hand sterilisation technician. Finger extensor 5/5. Finger flexor 5/5. Pronation [...] of ankles. ? Coordination: Finger-to- nose-finger and nims-dg-dagh intact bilaterally. No ataxia of arms. No [...] with more than 50% of the total fwrb-nj-ecug time of the visit in counseling / [...] - TILT TABLE EVALUATION Flavio Tran MSN, RISK OFFICER, DISPENSARY TECHNICIAN-C 1. This office note has been dictated [...] the discretion of your PCP/referring physician Normal [facility] Vitamin B1, Whole Blon 06-04 Vitamin B1 (TDP), WB 189.4 nmol/L Normal 84.0-213.0 [facility] Comment on above: Result Comment: This assay measures the concentration of thiamine diphosphate (TDP), the primary active form of vitamin B1. Approximately 90 percent of vitamin B1 present in whole blood is TDP. Thiamine and thiamine monophosphate, which comprise the remaining 10 percent, are not measured. This test was developed and its performance characteristics determined by [facility]'s [facility] Pathology and Laboratory Medicine [place] ( [facility]). It has not been cleared or approved by the FDA. [facility] is regulated under CLIA as qualified to perform high complexity testing. This test is used for clinical purposes. It should not be regarded as investigational or for research. Performed By: #### C BC, CMP, MG1, PHOS #### [facility] [address] [place], [place] [address] Vitamin B12on 06-04-2019 Cobalamin (Vitamin B12) [Mass/Vol] 989 pg/mL Normal 232-1245 [facility] Comment on above: Performed By: #### C BC, CMP, MG1, PHOS #### [facility] [address] [place], [place] [address] Vitamin B6 Plasmaon 06-04-20 19 Vitamin B6 Plasma 29.7 nmol/L Normal 20.0-125.0 [facility] Comment on above: Result Comment: (NOT E) INTERPRETIVE INFORMATION: Vitamin B6 (Pyridoxal 5-Phosphate) Pyridoxal 5'-phosphate measured in a specimen collected following an 8-hour or overnight fast accurately indicates vitamin B6 nutritional status. Non-fasting specimen concentration reflects recent vitamin intake. Test developed and characteristics determined by [employer]. See Compliance Statement B: [employer] Performed by [employer], [address] [place] [id number] [email or web address], Chris Domingo MD, Lab. Director Performed By: #### C BC, CMP, MG1, PHOS #### [facility] [address] [place], [place] [address] PLAN OF CAREon 05-16-2019 PLAN OF CARE HNO ID: [id number] Author: Drew Walton Service: Cardiovascular Medicine Author Type: Resident Type: Plan of Care Filed: 05/16/2019 7:39 AM Note Text: Attestation signed by John Valdivia at 05/16/2019 9:00 AM [facility] STAFF PHYSICIAN NOTE OF PERSONAL INVOLVEMENT IN [...] chordal structure . Cardiac enzymes negative at [facility]. TTE done yesterday with normal systolic function, no wall motion abnormalities, and no thickening or mobile lesion. Cardiology will sign off at this time. Please do not hesitate to re consult with any concerns. Drew Walton MD [phone] Normal [facility] PROGRESSon 05-15-2019 PROGRESS HNO ID: [id number] Author: Shanae Morales Service: General Internal Medicine Author Type: Physician Type: Progress Notes Filed: 05/15/2019 5:43 PM Note Text: SERVICE DATE: 05/15/2019 SERVICE TIME: 5:31 PM HOSPITAL MEDICINE PROGRESS NOTE NIGHT AND WEEKEND COVERAGE: Days: [phone] [place] [phone] for patient issues. Nights: 2893-2660 For patients on H80/81, G80/81, please page GIM team pager [phone] For patients on any other floor, please page GIM team pager [phone] Hospital Medicine/Primary Attending: Shanae Morales MD Subjective [...] F/u Cardiology recs Medication and Non-Pharmacologic VTE Prophylaxis/Anticoag ulants Anticoagulant AND Antiplatelet Medications (From admission, onward) Start Dose Route Frequency Ordered Stop 05/12/19 0900 heparin 5,000 Units injection (Medical Risk Categories) 5,000 Units SUBCUTANEOUS EVERY 12 HOURS 05/12/19 0832 -- 05/12/19 0830 vte non-pharmacologic prophylaxis - none indicated (ne,wv) VTE Prophylaxis: VTE prophylaxis appropriate Plan of care discussed with: Provider, Family/Significant Other: mother, Care Management and RN SIGNATURE: Shanae Morales MD PATIENT NAME: Fadia Lan DATE: May 15, 2019 TIME: 5:31 PM PAGER/CONTACT #: [phone] Normal [facility] C-Reactive Proteinon 019 CRP [Mass/Vol] mg/L Normal <0.9 [facility] Comment on above: Performed By: #### V ALLBG #### [facility] [address] [place], [place] [address] CASE MANAGEMon 05-14-2019 CASE MANAGEM HNO ID: [id number] Author: Sendy (Rn) MICHAEL Olson Service: Care Management Author Type: [...] 14, 2019 TIME: 5:43 PM PAGER/CONTACT #: [phone] Normal [facility] CASE MANAGEM HNO ID: [id number] Author: Ruby Haile RN Service: Case Management Author Type: Registered Nurse Type: Care Mgt Progress Note Filed: 05/14/2019 2:44 PM Note Text: CARE MANAGEMENT PROGRESS NOTE SERVICE DATE: 05/14/2019 SERVICE TIME: 2:43 PM LOS: 2 days Progress Note Attempted to see the patient however she was sound asleep. Care Management will follow for Post Hospital Transition Needs. SIGNATURE: Ruby Haile RN,BSN,ACM-R N PATIENT NAME: Fadia Lan DATE: May 14, 2019 TIME: 2:43 PM PAGER/CONTACT #: .[phone] Normal [facility] Cortisolon 05-14-2019 Cortisol 20.4 ug/dL Normal [facility] Comment on above: Result Comment: Juan isol Reference Range: AM = 5.3-22.5, PM = 3.4-16.8 Performed By: #### C BC, CMP, MG1, PHOS #### [facility] [address] [place], [place] [address] PLAN OF CAREon 05-14-2019 PLAN OF CARE HNO ID: [id number] Author: Dante Smith MD Service: Neurology General [...] if new findings on EEG, please page [phone] -Pt should follow up with epilepsy - will place follow up order -For further POTS management, pt may follow up in autonomic clinic if she chooses -Please page with further questions Dante Smith MD PGY-2 Neurology Pager [phone] Normal [facility] PROGRESSon 05-14-2019 PROGRESS HNO ID: [id number] Author: Shanae Morales Service: General Internal Medicine Author Type: Physician Type: Progress Notes Filed: 05/14/2019 6:19 PM Note Text: SERVICE DATE: 05/14/2019 SERVICE TIME: 6:17 PM HOSPITAL MEDICINE PROGRESS NOTE NIGHT AND WEEKEND COVERAGE: Days: [phone] [place] [phone] for patient issues. Nights: 5916-2157 For patients on H80/81, G80/81, please page GIM team pager [phone] For patients on any other floor, please page GIM team pager [phone] Hospital Medicine/Primary Attending: Shanae Morales MD Subjective [...] F/u Cardiology recs Medication and Non-Pharmacologic VTE Prophylaxis/Anticoag ulants Anticoagulant AND Antiplatelet Medications (From admission, onward) Start Dose Route Frequency Ordered Stop 05/12/19 0900 heparin 5,000 Units injection (Medical Risk Categories) 5,000 Units SUBCUTANEOUS EVERY 12 HOURS 05/12/19 0832 -- 05/12/19 0830 vte non-pharmacologic prophylaxis - none indicated (ne,wv) VTE Prophylaxis: VTE prophylaxis appropriate Plan of care discussed with: Patient, Family/Significant Other: mother, Care Management and RN via telephone SIGNATURE: Shanae Morales MD PATIENT NAME: Fadia Lan DATE: May 14, 2019 TIME: 6:17 PM PAGER/CONTACT #: [phone] Normal [facility] Troponin Ton 05-14-2019 Troponin T.cardiac [Mass/Vol] ug/L Normal 0.000-0.029 [facility] Comment on above: Performed By: #### V ALL #### [place] [id number] NURSING PROGon 05-13-2019 NURSING PROG HNO ID: [id number] Author: Colleen Boudreaux) MICHAEL Devine Service: ? Author Type: Registered Nurse Type: Nursing Progress Note Filed: 05/13/2019 5:05 AM Note Text: Nursing Progress Note Patient Name: Fadia Lan Patient Location: [place] [address] Daily Note: Pt arrived to unit in stable condition. Pt was fully assessed including skin check with 2nd RN. Pt was oriented to room, instructed on how to use the call button, explained why she is currently a falls risk, and taught her how to use the call light for help. Pt stated that her belongings include her cell lurdes, advertising production manager, health history documents, and home medications. I instructed patient that doctors will need to see medication to reconcile med orders but that we will be providing all medication while she is in the hospital. Pt showed no signs and had no c/o pain, dizziness, chest pains or seizure activity at this time. This note was completed by: Colleen Devine RN Normal [facility] PROGRESSon 05-13-2019 PROGRESS HNO ID: [id number] Author: Gerald Borrego) Mario Alberto Service: Hospital [...] Staff, Dept. Of Hospital Medicine PAGER - [phone] ' Normal [facility] PROGRESS HNO ID: [id number] Author: Scott Rodriguez Service: Hospital Medicine Author Type: Physician Type: Progress Notes Filed: 05/13/2019 2:50 AM Note Text: DEPARTMENT OF HOSPITAL MEDICINE PROGRESS NOTE SERVICE DATE: 05/13/2019 SERVICE TIME: 2:42 AM Primary Care Physician: Danilo Dinero MD NIGHT AND WEEKEND COVERAGE: Please page me at [phone] with any question between 5 pm-8 am. [...] for dizziness, loss of consciousness and headaches. Psychiatric/Behavior al: Negative for depression and hallucinations. Objective PHYSICAL [...] As per cardiology Medication and Non-Pharmacologic VTE Prophylaxis/Anticoag ulants Anticoagulant AND Antiplatelet Medications (From admission, onward) Start Dose Route Frequency Ordered Stop 05/12/19 0900 heparin 5,000 Units injection (Medical Risk Categories) 5,000 Units SUBCUTANEOUS EVERY 12 HOURS 05/12/19 0832 -- 05/12/19 0830 vte non-pharmacologic prophylaxis - none indicated (ne,oh) VTE Prophylaxis: low risk Disposition: Home Plan of care discussed with: Patient and RN SIGNATURE: Scott Rodriguez MD PATIENT NAME: Fadia Lan DATE: May 13, 2019 TIME: 2:11 AM PAGER/CONTACT #: [phone] etx [phone] Normal [facility] CBCon 05-12-2019 Absolute nRBC <0.01 Normal <0.01 [facility] Comment on above: Performed By: #### C BC, CMP, MG1, PHOS #### [facility] [address] [place], [place] [address] Erythrocyte distribution width (RBC) [Ratio] 11.3 % Low 11.5-15.0 [facility] Comment on above: Performed By: #### C BC, CMP, MG1, PHOS #### [facility] [address] [place], [place] [address] Hematocrit (Bld) [Volume fraction] 36.1 % Normal 36.0-46.0 [facility] Comment on above: Performed By: #### C BC, CMP, MG1, PHOS #### [facility] [address] [place], [place] [address] Hemoglobin (Bld) [Mass/Vol] 12.6 g/dL Normal 11.5-15.5 [facility] Comment on above: Performed By: #### C BC, CMP, MG1, PHOS #### [facility] [address] [place], [place] [address] MCH (RBC) [Entitic mass] 31.0 pG Normal 26.0-34.0 [facility] Comment on above: Performed By: #### C BC, CMP, MG1, PHOS #### [place] [address] [place], [place] [address] MCHC (RBC) [Mass/Vol] 34.9 g/dL Normal 30.5-36.0 [facility] Comment on above: Performed By: #### C BC, CMP, MG1, PHOS #### [place] [address] [place], [place] [address] MCV (RBC) [Entitic vol] 88.7 fL Normal 80.0-100.0 [facility] Comment on above: Performed By: #### C BC, CMP, MG1, PHOS #### [place] [address] [place], [place] [address] Platelet mean volume (Bld) [Entitic vol] 8.6 fL Low 9.0-12.7 [facility] Comment on above: Performed By: #### C BC, CMP, MG1, PHOS #### [place] [address] [place], [place] [address] Platelets (Bld) [#/Vol] 328 10*3/uL Normal 150-400 [facility] Comment on above: Performed By: #### C BC, CMP, MG1, PHOS #### [place] [address] [place], [place] [address] RBC (Bld) [#/Vol] 4.07 10*6/uL Normal 3.90-5.20 [facility] Comment on above: Performed By: #### C BC, CMP, MG1, PHOS #### [place] [address] [place], [place] [address] WBC (Bld) [#/Vol] 5.72 10*3/uL Normal 3.70-11.00 [facility] Comment on above: Performed By: #### C BC, CMP, MG1, PHOS #### [facility] [address] [place], [place] [address] CONSULTon 05-12-2019 CONSULT HNO ID: [id number] Author: Ramesh Scales Service: Neurology General Author [...] tend to occur in the evenings or as400 developer (3AM-5AM- per mother she is awake prior [...] her to local ED, then transferred to [facility] for further management. Prior work-up [...] high school and quit her job at [employer] due to episodes. Current Facility-Administere d Medications Medication Dose Route Frequency - magnesium [...] REFLEXES Right Left Bicep 2/4 2/4 BrRad 2/ 2/4 Knee 2/ 2/ Ankle 2/ 2/ Pathological Reflexes: Babinski: bilaterally Downward response ? Sensation: Intact to light touch and vibratory sense in all four extremities. ? Coordination: Finger-to- nose-finger intact bilaterally and Kfci-bv-[id number] intact bilaterally. ? Gait: Not examined. LABS/DATA: [...] not upload- disc left in patient's chart). Impression/Recommend ations This is Ms. Fadia Lan a 18 [...] [place] [phone]. - [place] [phone] with questions. The patient was evaluated by Neurology Moonlighter and will be formally seen by staff in the AM. SIGNATURE: Maria De Jesus Gunderson MD PGY4 Neurology Resident PATIENT NAME: Fadia Lan DATE: May 12, 2019 TIME: 12:49 PM PAGER/CONTACT #: [phone] Staff Note: I reviewed the history and physical obtained and documented by the resident and I personally participated in the rosado components. I agree with impression and plan. Ramesh Scales MD Normal [facility] Comp Metabolic Panelon 05-12 Albumin [Mass/Vol] 4.1 g/dL Normal 3.9-4.9 [facility] Comment on above: Performed By: #### C BC, CMP, MG1, PHOS #### [facility] [address] [place], [place] [address] ALP [Catalytic activity/Vol] 54 U/L Normal 45-87 [facility] Comment on above: Result Comment: Refe rence ranges were not locally established for this patient's age group. The normal values are based on the following source: Austen BERNARD, Dari WALKER, et al. CLSI based transference of the Socket Mobile database of pediatric reference intervals from Carbajal to Antionette, Ortho, Nathalia, and Siemens Clinical Chemistry Assays: Direct validation using reference samples from the CALIPER cohort. Clin Biochem. Performed By: #### C BC, CMP, MG1, PHOS #### [facility] [address] [place], [place] [address] ALT [Catalytic activity/Vol] 10 U/L Normal 7-38 [facility] Comment on above: Performed By: #### C BC, CMP, MG1, PHOS #### [facility] [address] [place], [place] [address] Anion gap [Moles/Vol] 11 mmol/L Normal 9-18 [facility] Comment on above: Performed By: #### C BC, CMP, MG1, PHOS #### [facility] [address] [place], [place] [address] AST [Catalytic activity/Vol] 14 U/L Normal 13-35 [facility] Comment on above: Performed By: #### C BC, CMP, MG1, PHOS #### [facility] [address] [place], [place] [address] Bilirubin [Mass/Vol] 0.5 mg/dL Normal 0.2-1.3 [facility] Comment on above: Performed By: #### C BC, CMP, MG1, PHOS #### [facility] [address] [place], [place] [address] Calcium [Mass/Vol] 8.7 mg/dL Normal 8.5-10.2 [facility] Comment on above: Performed By: #### C BC, CMP, MG1, PHOS #### [place] [address] [place], [place] [address] Chloride [Moles/Vol] 105 mmol/L Normal 97-105 [facility] Comment on above: Performed By: #### C BC, CMP, MG1, PHOS #### [place] [address] CO2 [Moles/Vol] 26 mmol/L Normal 22-30 [facility] Comment on above: Performed By: #### C BC, CMP, MG1, PHOS #### [place] [address] [place], [place] [address] Creatinine [Mass/Vol] 0.58 mg/dL Normal 0.58-0.96 [facility] Comment on above: Performed By: #### C BC, CMP, MG1, PHOS #### [place] [address] [place], [place] [address] eGFR- Amer. >[address] [facility] Comment on above: Performed By: #### C BC, CMP, MG1, PHOS #### [facility] [address] [place], [place] [address] GFR/1.73 sq M predicted among non-blacks MDRD (S/P/Bld) [Vol rate/Area] mL/min/{1.73_m2} Normal [facility] Comment on above: Result Comment: eGFR (Estimated [...] #### C BC, CMP, MG1, PHOS #### [facility] [address] [place], [place] [address] Glucose [Mass/Vol] 81 mg/dL Normal 74-99 [facility] Comment on above: Result Comment: The [place] Diabetes Association (ADA) provides guidance for cutoff [...] Standards of Medical Care in Diabetes 2016, [place] Diabetes Association. Diabetes Care. 2016.39(Suppl 1). Performed By: #### C BC, CMP, MG1, PHOS #### [facility] [address] [place], [place] [address] Potassium [Moles/Vol] 3.3 mmol/L Low 3.7-5.1 [facility] Comment on above: Performed By: #### C BC, CMP, MG1, PHOS #### [facility] [address] [place], [place] [address] Protein [Mass/Vol] 6.1 g/dL Low 6.3-8.0 [facility] Comment on above: Performed By: #### C BC, CMP, MG1, PHOS #### [facility] [address] [place] [address] Sodium [Moles/Vol] 142 mmol/L Normal 136-144 [facility] Comment on above: Performed By: #### C BC, CMP, MG1, PHOS #### [facility] [address] [place] [address] Urea nitrogen [Mass/Vol] 5 mg/dL Low 7-21 [facility] Comment on above: Performed By: #### C BC, CMP, MG1, PHOS #### [facility] [address] [place], [place] [address] ECG COMPLETEon 05-12-2019 ECG COMPLETE NAME : FADIA LAN PID : [id number] : 2000 Gender : Female Race : ORD : [id number] Procedure Date : May 12 2019 13:55:01 [...] ms QTC Calculation(Bazett) : 435 ms P [place] : 62 degrees R [place] : 65 degrees T [place] : 54 degrees Test Reason : Arrhythmia Location : 151 : G51 09 Overread By : MD STACEY, PhD,IZABELA Edited By : MD STACEY, PhD,IZABELA Referred By : MERRITT HANLEY Acquired by : YUAN DIAZ [facility] EKG1on 05-12-2019 EKG1 NAME : FADIA LAN PID : [id number] : 2000 Gender : Female Race : ORD : Procedure Date : May 12 2019 09:25:25 Edit Date : May 16 2019 11:01:13 Diagnosis:NORMAL SINUS RHYTHM NORMAL ECG Confirmed by MD STACEY, PhD, IZABELA ([id number]) on 05/16/2019 11:01:12 AM Ventricular Rate : 65 BPM Atrial Rate : 65 BPM P-R Interval : 160 ms QRS Duration : 86 ms Q-T Interval : 416 ms QTC Calculation(Bazett) : 432 ms P [place] : 64 degrees R [place] : 76 degrees T [place] : 45 degrees Test Reason : Location : 115 : [facility] Overread By : MD STACEY, PhD,IZABELA Edited By : MD STACEY, PhD,IZABELA Referred By : , Acquired by : [id number], Normal [facility] GASV + ALLon 05-12-2019 Base Excess 1 mmol/L Normal [facility] Comment on above: Performed By: #### V ALLBG #### [facility] [address] [place], [place] [address] Calcium [Mass/Vol] 1.23 mmol/L Normal 1.08-1.30 [facility] Comment on above: Performed By: #### V ALLBG #### [facility] [address] [place] [address] Carboxyhemoglobin,Kevin 1.1 % Normal <2.0 [facility] Comment on above: Performed By: #### V ALLBG #### [place] [address] [place], [place] [address] CO2 [Moles/Vol] 28 mmol/L Normal 25-29 [facility] Comment on above: Performed By: #### V ALLBG #### [facility] [address] [place], [place] [address] Glucose [Mass/Vol] 84 mg/dL Normal 60-105 [facility] Comment on above: Performed By: #### V ALLBG #### [facility] [address] [place], [place] [address] HCO3 (Bld) [Moles/Vol] 27 mmol/L Normal 24-28 [facility] Comment on above: Performed By: #### V ALLBG #### [facility] [address] [place], [place] [address] Hematocrit (Bld) [Volume fraction] 40 % Normal 36.0-46.0 [facility] Comment on above: Performed By: #### V ALLBG #### [facility] [address] [place], [place] [address] Hemoglobin (Bld) [Mass/Vol] 12.9 g/dL Normal 11.5-15.5 [facility] Comment on above: Performed By: #### V ALLBG #### [facility] [address] [place] [address] Lactate [Moles/Vol] 0.9 mmol/L Normal 0.5-2.2 [facility] Comment on above: Performed By: #### V ALLBG #### [facility] [address] [place] [address] Methemoglobin 0.6 % Normal 0.4-1.5 [facility] Comment on above: Performed By: #### V ALLBG #### [facility] [address] [place], [place] [address] Oxygen (Bld) [Partial pressure] 46 mm Hg High 35-45 [facility] Comment on above: Performed By: #### V ALLBG #### [facility] [address] [place], [place] [address] Oxyhemoglobin, Kevin. 76 % Normal 60-85 [facility] Comment on above: Performed By: #### V ALLBG #### [facility] [address] [place], [place] [address] pCO2 49 mm Hg Normal 42-55 [facility] Comment on above: Performed By: #### V ALLBG #### [facility] [address] [place] [place], [place] [address] pCO2, Temp Correct [address] [facility] Comment on above: Performed By: #### V ALLBG #### [facility] [address] [place] [address] pH (Bld) 7.36 [pH] Normal 7.32-7.42 [facility] Comment on above: Performed By: #### V ALLBG #### [facility] [address] [place], [place] [address] pH, Temp Corrected 7.36 Normal 7.32-7.42 [facility] Comment on above: Performed By: #### V ALLBG #### [place] [address] [place] [id number] pO2, Temp Corrected 46 mm Hg Normal [facility] Comment on above: Performed By: #### V ALLBG #### [place] [address] Potassium [Moles/Vol] 3.3 mmol/L Low 3.5-5.0 [facility] Comment on above: Performed By: #### V ALLBG #### [place] [address] [place], [place] [address] Sodium [Moles/Vol] 140 mmol/L Normal 132-148 [facility] Comment on above: Performed By: #### V ALLBG #### [place] [phone] HISTORY PHYSICALon 9 HISTORY PHYSICAL HNO ID: [id number] Author: Tony Tapia MD Service: Critical Care Author Type: Resident Type: HANDP Filed: 05/12/2019 2:09 PM Note Text: Attestation signed by Skip Zee at 05/12/2019 6:09 PM [facility] STAFF PHYSICIAN NOTE OF PERSONAL INVOLVEMENT IN [...] of care, medical plan for the day, client support consultant recommendations, medical disposition and current medical condition/prognosis as and if clinically indicated. All questions and concerns were answered and addressed at this juncture. They were notified on May 12, 2019. Plan of care discussed with: Provider, RN, Patient. SIGNATURE: Skip Zee MD [facility] May 12, 2019 6:00 PM May 12, 2019 12:44 PM Fadia Lan ADMISSION DATE: 05/12/2019 [id number] LENGTH OF STAY: 0 Fadia is a [...] to be S Aureus Impetigo by a bulldozer engineer. Keflex and mupirocin given and the infection [...] 10 mg by mouth once daily. Current Facility-Administere d Medications Medication Dose Route Frequency - magnesium [...] 0830 vte non-pharmacologic prophylaxis - none indicated (ne,oh) 05/12/19 0830 activity - mobilize patient (ne,wv) VTE Prophylaxis: VTE prophylaxis appropriate Bowels: no [...] to be reviewed by Dr. Yayo Bill [facility] Magnesiumon 05-12-2019 Magnesium [Mass/Vol] 1.9 mg/dL Normal 1.7-2.3 [facility] Comment on above: Performed By: #### C BC, CMP, MG1, PHOS #### [facility] [address] [place] [id number] PROGRESSon 05-12-2019 PROGRESS HNO ID: [id number] Author: John Valdivia Service: Cardiovascular Medicine Author Type: Physician Type: Progress Notes Filed: 05/13/2019 2:01 PM Note Text: [facility] CARDIOVASCULAR [facility]ICINE HISTORY AND PHYSICAL Fadia Lan [id number] [facility] DATE OF ADMISSION: 05/12/2019 CHIEF COMPLAINT: troponinemia [...] by mouth once daily. INPATIENT MEDICATIONS Current Facility-Administere d Medications Medication Dose Route Frequency - magnesium [...] mobile density -I uploaded the echos to [employer]. Would repeat TTE here. Ask them to [...] Staff addendum to follow Brooks Clinton MD Core Winding Operator Pager: [phone] For communication after 5 pm on weekdays and after 12 pm on weekends, please page the following: - Clinical Cardiology patients on all floors: page [phone] - All other patients: after hours JORGE A (found in the On-Call directory by searching JORGE A) - For any urgent or emergent issues, page pulmonary [place] [phone] (Heart failure A, Imaging, PUMP HOUSE OPERATOR/PA) or [phone] (Heart failure B, EP/EP TCI, Intervention, J33) ----- Resident update: Patient seen by cardiology team and staff appliance installer. Briefly, Ms. Loaiza is an 18 year [...] will continue to follow. Drew Walton MD [phone] [facility] STAFF PHYSICIAN NOTE OF PERSONAL INVOLVEMENT IN [...] evidence of cardiomyopathy PLAN: repeat troponin at [facility] And if elevated consider further testing Echocardiogram telemetry monitoring John Valdivia MD DATE of SERVICE: May 13, 2019 TIME of SERVICE: 2:00 PM Normal [facility] Phosphoruson 05-12-2019 Phosphate [Mass/Vol] 3.9 mg/dL Normal 2.7-4.8 [facility] Comment on above: Performed By: #### C BC, CMP, MG1, PHOS #### [place] [address] [place] [phone] Sed Rate Westergrenon 2018 Sed Rate Westergren 2 mm/hr Normal 0-20 [facility] Comment on above: Performed By: #### T NT, WSR, TSH #### [place] [address] Staph aureus PCRon 9 MRSA PCR Negative Normal [facility] Comment on above: Performed By: #### V ALLBG #### [place] [address] [place] [address] S aureus Spec Source Nasal Normal [facility] Comment on above: Performed By: #### V ALLBG #### [place] [address] [place] [address] Staph aureus PCR Negative Normal [facility] Comment on above: Result Comment: Perf ormance characteristics of this assay for testing specimens from patients <=21 years of age were determined by [facility] [place] (RT-PLMI). Performance on this age group has not been approved by the FDA. RT-[facility] is regulated under CLIA as qualified to perform high complexity testing. This test is used for clinical purposes. It should not be regarded as investigational or for research. Performed By: #### V ALLBG #### [facility] [place] [address] TSHon 05-12-2019 TSH Qn 1.970 uU/mL Normal 0.510-4.300 [facility] Comment on above: Result Comment: If t he patient is , TSH reference range varies by gestational period: First Trimester (weeks 9-12): 0.180-2.990 mcIU/mL Second Trimester: 0.110-3.980 mcIU/mL Third Trimester: 0.480-4.710 mcIU/mL Favian Rosas et al. A Practical Approach for the Verifications and Determination of Site- and Trimester-Specific Reference Intervals for Thyroid Function tests in . Thyroid, 2019:29:3:412-420. Paul Mckenzie, et al. 2017 Guidelines of the [place] Thyroid Association for the Diagnosis and Management of Thyroid Disease during and the . Thyroid, 2017:27:3:315-389. Reference ranges were not locally established for this patient's age group. The normal values are based on the following source: Nate WAwa V. Reference Ranges for Adults and Children: Pre-analytical Considerations. [employer] Performed By: #### V ALLBG #### [facility] [place] [address] Toxicology Screen,Uron 05-12 Amphetamines, Urine Negative Normal Negative [facility] Comment on above: Result Comment: Cuto ff threshold at 1000 ng/mL. Performed By: #### U TOX2, UAWMIC #### [facility] [place] [address] Barbiturates, Urine Negative Normal Negative [facility] Comment on above: Result Comment: Cuto ff threshold at 200 ng/mL. Performed By: #### U TOX2, UAWMIC #### [facility] [place] [address] Benzodiazepines, Ur Negative Normal Negative [facility] Comment on above: Result Comment: Cuto ff threshold at 200 ng/mL. Performed By: #### U TOX2, UAWMIC #### [facility] [address] [place], [place] [address] Cannabinoids, Urine Negative Normal Negative [facility] Comment on above: Result Comment: Cuto ff threshold at 50 ng/mL. Performed By: #### U TOX2, UAWMIC #### [place] [address] [place] [address] Cocaine, Urine Negative Normal Negative [facility] Comment on above: Result Comment: Cuto ff threshold at 300 ng/mL. Performed By: #### U TOX2, UAWMIC #### [place] [address] Ethanol, Urine <11 Normal <11 [facility] Comment on above: Performed By: #### U TOX2, UAWMIC #### [facility] [address] [place] [address] Opiates, Urine Negative Normal Negative [facility] Comment on above: Result Comment: Cuto ff threshold at 300 ng/mL. Performed By: #### U TOX2, UAWMIC #### [place] [phone] Oxycodone, Urine Negative Normal Negative [facility] Comment on above: Result Comment: Cuto [...] on the same specimen through Client Services ([phone]) if contacted within 48 hours of initial testing. [1]Substance Abuse and Mental Health Services Administration (2012). Clinical Drug Testing in Primary Care Technical Assistance Publication Series 32. Department of Health and Human Services, [place], p.10. Performed By: #### U TOX2, UAWMIC #### [place] [address] Phencyclidine, Urine Negative Normal Negative [facility] Comment on above: Result Comment: Cuto ff threshold at 25 ng/mL. Performed By: #### U TOX2, UAWMIC #### [place] [phone] Troponin Ton 05-12-2019 Troponin T.cardiac [Mass/Vol] ug/L Normal 0.000-0.029 [facility] Comment on above: Performed By: #### T NT, WSR, TSH #### [place] [address] Urinalysis with Microscopico n 05-12-2019 Bilirubin, Urine Negative Normal Negative [facility] Comment on above: Performed By: #### U TOX2, UAWMIC #### [place] [phone] Clarity (U) Clear Normal Clear [facility] Comment on above: Performed By: #### U TOX2, UAWMIC #### [place] [address] Color (U) Yellow Normal Yellow [facility] Comment on above: Performed By: #### U TOX2, UAWMIC #### [place] [phone] Comments SEE COMMENT Normal [facility] Comment on above: Result Comment: N/A Performed By: #### U TOX2, UAWMIC #### [address] [address] Epithelial cells LM.HPF (Urine sed) [#/Area] SEE COMMENT Normal [facility] Comment on above: Result Comment: Few Squamous Epithelial Cells Performed By: #### U TOX2, UAWMIC #### [facility] [address] [place], [place] [address] Glucose Ql (U) Negative Normal Negative [facility] Comment on above: Performed By: #### U TOX2, UAWMIC #### [place] [address] [place] [address] Hemoglobin/Blood,Ur 1+ Critically abnormal Negative [facility] Comment on above: Performed By: #### U TOX2, UAWMIC #### [place] [address] Ketones Ql (U) Negative Normal Negative [facility] Comment on above: Performed By: #### U TOX2, UAWMIC #### [place] [address] [place] [address] Leukest Negative Normal Negative [facility] Comment on above: Performed By: #### U TOX2, UAWMIC #### [place] [address] Nitrite Ql (U) Negative Normal Negative [facility] Comment on above: Performed By: #### U TOX2, UAWMIC #### [place] [address] [place] [address] pH (Bld) 6.0 Normal 4.5-8.0 [facility] Comment on above: Performed By: #### U TOX2, UAWMIC #### [place] [address] [place] [address] Protein (U) [Mass/Vol] Negative Normal Negative Cl [facility] Comment on above: Performed By: #### U TOX2, UAWMIC #### [address] [place] [address] RBC (U) [#/Vol] 0-3 Normal 0-3 [facility] Comment on above: Performed By: #### U TOX2, UAWMIC #### [facility] [address] [place] [address] Specific [place], Ur 1.009 Normal 1.005-1.030 [facility] Comment on above: Performed By: #### U TOX2, UAWMIC #### [place] [address] [place] [address] Urine Álvaro Comment SEE COMMENT Normal [facility] Comment on above: Result Comment: N/A Performed By: #### U TOX2, UAWMIC #### [place] [address] [place] [address] Urobilinogen Qn (U) Normal Normal Normal [facility] Comment on above: Performed By: #### U TOX2, UAWMIC #### [facility] [address] [place] [address] WBC (Bld) [#/Vol] 0-5 Normal 0-5 [facility] Comment on above: Performed By: #### U TOX2, UAWMIC #### [place] [address] [place] [phone] CNCOon 05-01-2019 CNCO Letter Text Normal [facility] Vital Signs Date Time Vital Sign Value Performing Clinician Facility 05-17-2024 16:30-0500 Body height 165.1 cm Zaid Santos DPM FACFAS Work Phone: [facility] 05-17-2024 16:30-0500 Body mass index (BMI) [Ratio] 19.64 kg/m2 Zaid Villafanace DPM FACFAS Work Phone: [facility] 05-17-2024 16:30-0500 Body weight 53.52 kg Zaid Villafanace DPM FACFAS Work Phone: [facility] 05-17-2024 16:30-0500 Diastolic blood pressure 66 mm[Hg] Zaid Dolce DPM FACFAS Work Phone: [facility] 05-17-2024 16:30-0500 Heart rate 70 /min Zaid Dolce DPM FACFAS Work Phone: [facility] 05-17-2024 16:30-0500 Systolic blood pressure 101 mm[Hg] Zaid Dolce DPM FACFAS Work Phone: [facility] 04-24-2024 16:23-0500 Body height 165.1 cm Zaid Dolce DPM FACFAS Work Phone: [facility] 04-24-2024 16:23-0500 Body mass index (BMI) [Ratio] 19.64 kg/m2 Zaid Dolce DPM FACFAS Work Phone: [facility] 04-24-2024 16:23-0500 Body weight 53.52 kg Zaid Dolce DPM FACFAS Work Phone: [facility] 04-24-2024 16:23-0500 Diastolic blood pressure 64 mm[Hg] Zaid Dolce DPM FACFAS Work Phone: [facility] 04-24-2024 16:23-0500 Heart rate 70 /min Zaid Dolce DPM FACFAS Work Phone: [facility] 04-24-2024 16:23-0500 Systolic blood pressure 101 mm[Hg] Zaid Dolce DPM FACFAS Work Phone: [facility] 04-23-2024 08:50-0500 Body mass index (BMI) [Ratio] 19.64 kg/m2 Dmitri Asif DO Work Phone: [facility] 04-23-2024 08:50-0500 Body weight 53.52 kg Dmitri Asif DO Work Phone: [facility] 04-23-2024 08:50-0500 Diastolic blood pressure 60 mm[Hg] Dmitri Asif DO Work Phone: [facility] 04-23-2024 08:50-0500 Systolic blood pressure 100 mm[Hg] Dmitri Asif DO Work Phone: [facility] 04-18-2024 16:13-0500 Body mass index (BMI) [Ratio] 19.28 kg/m2 Dmitri Asif DO Work Phone: [facility] 04-18-2024 16:13-0500 Body weight 52.55 kg Dmitri Asif DO Work Phone: [facility] 04-18-2024 16:13-0500 Diastolic blood pressure 60 mm[Hg] Dmitri Asif DO Work Phone: [facility] 04-18-2024 16:13-0500 Systolic blood pressure 110 mm[Hg] Dmitri Asif DO Work Phone: [facility] 04-03-2024 16:08-0400 Body height 165.1 cm Zaid Dolce DPM FACFAS Work Phone: [facility] 04-03-2024 16:08-0400 Body mass index (BMI) [Ratio] 20.97 kg/m2 Zaid Dolce DPM FACFAS Work Phone: [facility] 04-03-2024 16:08-0400 Body weight 57.15 kg Zaid Dolce DPM FACFAS Work Phone: [facility] 04-03-2024 16:08-0400 Diastolic blood pressure 68 mm[Hg] Zaid Dolce DPM FACFAS Work Phone: [facility] 04-03-2024 16:08-0400 Heart rate 70 /min Zaid Dolce DPM FACFAS Work Phone: [facility] 04-03-2024 16:08-0400 Systolic blood pressure 121 mm[Hg] Zaid Dolce DPM FACFAS Work Phone: [facility] 12-30-2023 09:15-0400 Diastolic blood pressure 67 mm[Hg] MD Danilo Dinero Work Phone: [facility] 12-30-2023 09:15-0400 Heart rate 73 /min MD Danilo Dinero Work Phone: [facility] 12-30-2023 09:15-0400 Respiratory rate 18 /min MD Danilo Dinero Work Phone: [facility] 12-30-2023 09:15-0400 SaO2% (BldA) [Mass fraction] 98 % MD Danilo Dinero Work Phone: [facility] 12-30-2023 09:15-0400 Systolic blood pressure 100 mm[Hg] MD Danilo Dinero Work Phone: [facility] 12-30-2023 06:31-0400 Body height 165.1 cm MD Danilo Dinero Work Phone: [facility] 12-30-2023 06:31-0400 Body temperature 97.9 [degF] MD Danilo Dinero Work Phone: [facility] 12-30-2023 06:31-0400 Body weight 56.5 kg MD Danilo Dinero Work Phone: [facility] 10-10-2020 21:15-0400 Diastolic blood pressure 57 mm[Hg] Estuardo Carter MD Work Phone: [employer] Work Phone: 10-10-2020 21:15-0400 Heart rate 92 /min Estuardo Carter MD Work Phone: [employer] Work Phone: 10-10-2020 21:15-0400 Respiratory rate 16 /min Estuardo Carter MD Work Phone: [employer] Work Phone: 10-10-2020 21:15-0400 SaO2% (BldA) [Mass fraction] 96 % Estuardo Carter MD Work Phone: [employer] Work Phone: 10-10-2020 21:15-0400 Systolic blood pressure 105 mm[Hg] Estuardo Carter MD Work Phone: [employer] Work Phone: 10-10-2020 19:12-0400 Body temperature 98.71 [degF] Estuardo Carter MD Work Phone: [employer] Work Phone: 10-10-2020 16:39-0400 Body weight 57.61 kg Estuardo Carter MD Work Phone: [employer] Work Phone: 05-12-2019 11:07-0500 Body temperature 98.6 [degF] [facility] Comment on above: Performed By: #### VALLBG #### [facility] [address] [address] Encounters Encounter Date Encounter Type Care Provider Facility Start: 06-28-2024 End: 06-28-2024 Bamboo flowsheet Dmitri Asif DO Work Phone: [facility] Start: 06-28-2024 End: 06-29-2024 Bamboo flowsheet Dmitri Asif DO Work Phone: [facility] Start: 06-28-2024 End: 06-29-2024 External Result Encounter Dmitri Asif DO Work Phone: [facility] External Department Unsolicited Start: 06-28-2024 End: 06-28-2024 Office outpatient visit 15 minutes Dmitri Asif DO Work Phone: [facility] Comment on above: Vaginal discharge; History of ovarian cyst; Yeast infection; Encounter for surveillance of other contraceptive Start: 06-28-2024 End: 06-28-2024 ambulatory DMITRI ASIF Not Available Start: 05-17-2024 End: 05-17-2024 Office outpatient visit 25 minutes Zaid HEATONM FACFAS Work Phone: [facility] Comment on above: Peroneal tendonitis of left lower extremity (Primary Dx); Other enthesopathy of left foot and ankle Start: 05-17-2024 End: 05-17-2024 ambulatory Major Garces Jr Facility:[facility] Start: 05-17-2024 End: 05-17-2024 Bamboo flowsheet Zaid R Dolce DPM FACFAS Work Phone: [facility] Start: 05-17-2024 End: 05-17-2024 Bamboo flowsheet Zaid R Dolce DPM FACFAS Work Phone: [facility] Start: 04-24-2024 End: 04-24-2024 ambulatory ZAID R DOLCE Not Available Start: 04-24-2024 End: 04-24-2024 Office outpatient visit 15 minutes Zaid R Dolce DPM FACFAS Work Phone: [facility] Comment on above: Left ankle instabili ty (Primary Dx); Peroneal tendonitis of left lower extremity Start: 04-24-2024 End: 04-24-2024 Bamboo flowsheet Zaid R Dolce DPM FACFAS Work Phone: [facility] Start: 04-24-2024 End: 04-24-2024 Bamboo flowsheet Zaid R Dolce DPM FACFAS Work Phone: [facility] Start: 04-23-2024 End: 04-23-2024 ambulatory DMITRI ASIF Not Available Start: 04-23-2024 End: 04-23-2024 Patient encounter procedure Dmitri Asif DO Work Phone: [facility] Comment on above: Encounter for IUD re moval Start: 04-18-2024 End: 04-18-2024 Office outpatient visit 15 minutes Dmitri Asif DO Work Phone: [facility] Comment on above: Encounter for routin e checking of intrauterine contraceptive device (IUD); Left sided abdominal pain Start: 04-18-2024 End: 04-18-2024 ambulatory DMITRI ASIF Not Available Start: 04-18-2024 End: 04-18-2024 Bamboo flowsheet Dmitri Asif DO Work Phone: [facility] Start: 04-18-2024 End: 04-18-2024 Bamboo flowsheet Dmitri Asif DO Work Phone: [facility] Start: 04-03-2024 End: 04-03-2024 ambulatory ZAID R DOLCE Not Available Start: 04-03-2024 End: 04-03-2024 Office outpatient new 45 minutes Zaid R Dolce DPM FACFAS Work Phone: [facility] Comment on above: Contusion of left fo ot, initial encounter (Primary Dx); Left ankle instability; Peroneal tendonitis of left lower extremity; Other enthesopathy of left foot and ankle; Ankle contracture, left; Sprain of left foot, initial encounter Start: 04-03-2024 End: 04-03-2024 Bamboo flowsheet Zaid R Dolce DPM FACFAS Work Phone: [facility] Start: 04-03-2024 End: 04-03-2024 Bamboo flowsheet Zaid R Dolce DPM FACFAS Work Phone: [facility] Start: 03-09-2024 End: 03-09-2024 ambulatory MD Danilo Dinero Work Phone: [facility] Work Phone: Start: 03-09-2024 End: 03-09-2024 Patient encounter procedure MD Danilo Dinero Work Phone: [facility] [address] Work Phone: Start: 02-20-2024 End: 02-20-2024 ambulatory MD Danilo Dinero Work Phone: [facility] Work Phone: Start: 02-20-2024 End: 02-20-2024 Patient encounter procedure MD Danilo Dinero Work Phone: [facility] [address] Work Phone: Start: 01-25-2024 End: 01-25-2024 ambulatory MD Danilo Dinero Work Phone: [facility] Work Phone: Start: 01-25-2024 End: 01-25-2024 Patient encounter procedure MD Danilo Dinero Work Phone: [facility] [address] Work Phone: Start: 01-09-2024 End: 01-09-2024 ambulatory MD Danilo Dinero Work Phone: [facility] Work Phone: Start: 01-09-2024 End: 01-09-2024 Patient encounter procedure MD Danilo Dinero Work Phone: [facility] [address] Work Phone: Start: 12-30-2023 End: 12-30-2023 Emergency department patient visit MD Danilo Dinero Work Phone: [facility] Work Phone: Start: 08-17-2022 End: 08-18-[address] DMITRI GOLD . Facility:[facility] Start: 2022 Encounter for preprocedural laboratory examination DR DMITRI GOLD . [facility] Start: 07-02-2022 End: 07-02-[address] [...] End: 01-18-[address] DANILO DINERO . Facility: Start: 10-10-2020 End: 10-10-2020 Emergency department patient visit ESTUARDO CARTER [facility] Start: 10-10-2020 End: 10-10-2020 Emergency department patient visit Estuardo Carter MD Work Phone: [facility] Comment on above: Flank pain (Primary Dx); Dermoid cyst of right ovary; Post-op pain Procedures Date Procedure Procedure Detail Performing Clinician Start: 06-28-2024 RECURRENT VAGINITIS (HTRX) Dmitri Gold DO Work Phone: Start: 04-23-2024 IUD REMOVAL Dmitri raman DO Work Phone: Start: 12-30-2023 X-ray of left ankle MD [...] Treatment Date Care Activity Detail Author Start: 10-10-2024 End: 10-10-2024 Patient encounter procedure 10/10/2024 2:20 PM EDT Office Visit [facility] [address] [place] [address] Dmitri Gold DO [address] [place] [address] [facility] Start: 06-28-2024 End: 06-28-2024 Patient encounter procedure 06/28/2024 8:10 AM EST Office Visit [facility] [address] [place] [phone] Dmitri Gold, DO [address] [place] [address] Arrived [facility] Comment on above: Arrived Start: 05-17-2024 End: 05-17-2024 Patient encounter procedure [facility] Comment on above: Arrived Start: 04-24-2024 End: 04-24-2024 Patient encounter procedure 04/24/2024 4:10 PM EST Office Visit [facility] [address] [place] [address] Zaid Santos, DPM FACFAS [address] [place] [address] [facility] Start: 04-23-2024 End: 04-23-2024 Patient encounter procedure 04/23/2024 8:30 AM EST Procedure Visit [facility] [address] [place] [phone] Dmitri Gold, DO [address] [place] [address] [facility] Start: 04-18-2024 End: 04-18-2024 Patient encounter procedure 04/18/2024 3:40 PM EST Office Visit [facility] [address] [place] [phone] Dmitri Gold, DO [address] [place], [place] [id number] [facility] Start: 04-17-2024 End: 04-17-2024 Patient encounter procedure 04/17/2024 3:40 PM EST Office Visit [facility] [address] [place] [address] Zaid Santos, DPM FACFAS [address] [place] [address] [facility] Start: 02-11-2021 Influenza vaccination Flu vacc ine (Season Ended) [employer] Phone: Start: 2019 DTaP/Tdap/Td vaccine (1 - Tdap) DTaP/Tdap/Td vaccine (1 - Tdap) [facility] Start: 2016 COVID-19 Vaccine (1) COVID-19 Vaccin e (1) [facility]: Start: 2016 Screening for Chlamy alda trachomatis Chlamydia screen [facility]: Start: 2015 HIV screening [facility] Work Phone: Start: 2011 HPV vaccine (1 - 2-d ose series) HPV vaccine (1 - 2-dose series) [facility]: Start: 2001 Varicella vaccine (1 of 2 - 2-dose childhood series) Varicella vaccine (1 of 2 - 2-dose childhood series) [facility] Phone: Start: 2000 Hepatitis C screening Hepatitis C sc reen [facility] Phone: CHLAMYDIA TRACHOMATI S (GENITO/STI) CHLAMYDIA TRACHOMATIS (GENITO/STI) Lab Routine Vaginal discharge Yeast infection Ordered: 06/28/2024 [facility] Comment on above: Ordered: 06/28/2024 Neisseria gonorrhoea e DNA [Presence] in Unspecified specimen by HALLEY with probe detection Neisseria gonorrhea DNA probe, direct Lab Routine Vaginal discharge Yeast infection Ordered: 06/28/2024 [facility] [employer] Comment on above: Ordered: 06/28/2024 Oxygen therapy [[facility] Data Set] Initiate Oxygen Therapy Protocol Respiratory Care Routine Daily until discontinued starting 10/10/2020 [employer] Phone: Comment on above: Daily until disconti nued starting 10/10/2020 Patient Education Foot Sprain ED [facility] Work Phone: Patient referral [facility] Work Phone: Phase I & II - meter ed glucose Phase I & II - metered glucose Point of Care Testing Routine As Needed until discontinued starting 10/10/2020 [employer] Phone: Comment on above: As Needed until disc ontinued starting 10/10/2020 SURESWAB(R) ADVANCED VAGINITIS PLUS, TMA SURESWAB(R) ADVANCED VAGINITIS PLUS, TMA Pathology and Cytology Routine Vaginal discharge Yeast infection Ordered: 06/28/2024 [employer] Work Phone: Comment on above: Ordered: 06/28/2024 Surgical Pathology Surgical Path ology Lab Routine Release Upon Ordering for 1 Occurrences starting 10/10/2020 [employer] Phone: Comment on above: Release Upon Orderin g for 1 Occurrences starting 10/10/2020 Payers Date Payer Category Payer Unknown [id number] 2024 Worker's Compensation [id number] 2023 Worker's Compensation [id number] 2023 Self-pay [id number] 2023 Unknown [id number] 2022 Private Health Insurance [id number] 2022 Private Health Insurance [id number] 2022 Private Health Insurance [id number] 2000 Unknown [id number] 2.16.840.1.243755.3.579.2. 593 2000 Unknown [id number] 2.16.840.1.522503.3.579.2. 593 2000 Unknown [id number] 2.16.840.1.865802.3.579.2. 593 2000 Unknown [id number] 2.16.840.1.903638.3.579.2. 593 2000 Unknown [id number] 2.16.840.1.024791.3.579.2. 593 2000 Unknown [id number] 2.16.840.1.461378.3.579.2. 593 2000 Unknown [id number] 2.16.840.1.979442.3.579.2. 593 2000 Unknown [id number] 2.16.840.1.713181.3.579.2. 593 2000 Unknown [id number] 2.16.840.1.734855.3.579.2. 1259 2000 Unknown [id number] 2.16.840.1.109425.3.579.2. 1259 2000 Unknown [id number] 2.16.840.1.391124.3.579.2. 1259 2000 Unknown [id number] 2.16.840.1.429110.3.579.2. 1259 2000 Unknown [id number] 2.16.840.1.797740.3.579.2. 9 2000 Unknown [id number] 2.16.840.1.999726.3.579.2. 1259 2000 Unknown [id number] 2.16.840.1.335573.3.579.2. 1259 2000 Unknown [id number] 2.16.840.1.629914.3.579.2. 1259 2000 Unknown [id number] 2.16.840.1.196777.3.579.2. 9 2000 Unknown [id number] 2.16.840.1.455227.3.579.2. 1258 2000 Unknown [id number] 2.16.840.1.663054.3.579.2. 1258 2000 Unknown [id number] 2.16.840.1.390583.3.579.2. 9 1959 Unknown [id number] Unknown Rasheeda CERON/BS [id number] Unknown [id number] 2.16.840.1.542070.3.579.2. 531 Unknown [id number] 2.16.840.1.281270.3.579.2. 531 Unknown [id number] 2.16.840.1.035679.3.579.2. 531 Unknown [id number] 2.16.840.1.686522.3.579.2. 531 Unknown [id number] 2.16.840.1.538728.3.579.2. 531 Unknown [id number] 2.16.840.1.690535.3.579.2. 531 Worker's Compensation [employer] Misc [id number] Social History Date Type Detail Facility Start: 10-10-2020 End: 04-03-2024 Tobacco smoking status [facility] Never smoker [facility] Start: 10-10-2020 End: 04-03-2024 Tobacco use and exposure Never used [employer] Start: 10-10-2020 Alcohol intake Lifetime non-d tyler (finding) [employer] Work Phone: Start: 10-10-2020 History SDOH Alcohol Frequency 1 [facility] Phone: Sex Assigned At Not on file [employer] Phone: Exposure to SARS-CoV -2 (event) Not sure [employer] Start: 2000 Sex Assigned At Female [facility] Tobacco smoking stat NHIS Tobacco smoking consumption unknown [facility] Start: 02-08-2023 Gender identity Identifies as female gender (finding) [facility] Start: 04-03-2024 End: 05-17-2024 Sexual orientation Not on file [facility] Start: 04-03-2024 End: 06-28-2024 Alcoholic beverage intake Defer [facility] Start: 04-03-2024 End: 05-17-2024 History of Social function [facility] Clinical Notes 10-10-2020 to 06-28-2024 Christine Lopez LPN - 06/28/2024 8:10 AM Ernestina Santos DPM FACFAS - 05/17/2024 4:20 PM Ernestina Santos DPM FACFAS - 04/24/2024 4:10 PM Monica Gold DO - 04/23/2024 8:30 AM ESTInstructions Note Date & Type Note Facility 06-28-2024 History of Present illness Narrative Reason for Appointment: Patient ID: Fadia Lan is a 23 y.o. female who presents for Vaginitis/Bacterial Vaginosis Patient presents today for Consult appointment. 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 SURGICAL HISTORY Past Surgical History: Procedure Laterality Date LAPAROSCOPY ABDOMEN DIAGNOSTIC 07/02/2022 Diagnostic laparoscopy w/left ovarian cystectomy and lysis of bowel adhesion from pelvic side wall OVARIAN CYST REMOVAL Right 03/2021 15 cm cyst PAP SMEAR 03/04/2022 negative REVIEW OF SYSTEMS Review of Systems: Review of Systems Genitourinary: Positive for vaginal discharge. All other systems reviewed and are negative. OBJECTIVE Objective: Physical Exam Constitutional: Appearance: Normal appearance. She is well-developed. Genitourinary: Vulva normal. Cardiovascular: Rate and Rhythm: Normal rate and regular rhythm. Pulmonary: Effort: Pulmonary effort is normal. Breath sounds: Normal breath sounds. Abdominal: General: Bowel sounds are normal. There is no distension. Palpations: Abdomen is soft. Tenderness: There is no abdominal tenderness. There is no guarding or rebound. Musculoskeletal: General: No swelling. Normal range of motion. Right lower leg: No edema. Left lower leg: No edema. Neurological: Mental Status: She is alert and oriented to person, place, and time. Skin: General: Skin is warm and dry. Psychiatric: Mood and Affect: Mood normal. Behavior: Behavior normal. Vitals and nursing note reviewed. Exam conducted with a special education math teacher present. Vitals: Estimated body mass index is 19.64 kg/m as calculated from the following: Height as of 05/17/24: 5' 5 . Weight as of 05/17/24: 118 lb. BP: No LMP recorded. Patient has had an implant. ASSESSMENT & PLAN ICD-10-CM 1. Vaginal discharge N89.8 Patient presents today for yeast infection/BV. Will send in Flagyl and Diflucan to treat symptoms. Vaginal cultures obtained. Discussed control with patient and patient was previously on OCP and then had Celine which then had removed due to possible cyst formation. Patient will start and return to clinic in 12 weeks for annual appointment. Patient voiced she has history of ovarian cyst and would like to hold off on ultrasound and will call back to office if she would like to have ordered. Documented by Christine Lopez LPN on behalf of: Dmitri Gold DO documented in this encounter [facility] 05-17-2024 History of Present illness Narrative Patient: Fadia Hawthornem : 2000 PCP: Danilo Dinero MD SUBJECTIVE This is a 23 y.o. female that presents today after a workman's comp injury left ankle injection and aso is working well. She states the injection of the brace has helped tremendously she has a little to no pain. She was going to return to work on she was advised to use anti-inflammatories as needed. 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 No pain to direct palpation left lateral ankle no pain coursing along the peroneal tendon left XRAY: US: ASSESSMENT 1. Peroneal tendonitis of left lower extremity 2. Other enthesopathy of left foot and ankle PLAN Patient will continue using the ASO brace she will transition out of in 2 weeks she is progressing well. BRISEIDA Madrid documented in this encounter [facility] 04-24-2024 History of Present illness Narrative Patient: Fadia Ashton Riky : 2000 PCP: Danilo Dinero MD SUBJECTIVE This is a 23 y.o. female that presents today for up injection after a workman's comp injury left ankle. She states the injection of the brace has helped tremendously she has a little to no pain. She was going to return to work on she was advised to use anti-inflammatories as needed. 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 No pain to direct palpation left lateral ankle no pain coursing along the peroneal tendon left XRAY: US: ASSESSMENT 1. Left ankle instability 2. Peroneal tendonitis of left lower extremity PLAN Patient will continue using the ASO brace she was advised to use anti-inflammatories as needed. Patient will follow up in 3 weeks. BRISEIDA Madrid documented in this encounter [facility] 04-23-2024 History of Present illness Narrative Associated Order(s): IUD Removal Post-Procedure Diagnose(s): Encounter for IUD removal Reason for Appointment: Patient ID: Fadia Lan is a 23 y.o. female who presents for Contraception Patient presents today for a IUD Removal appointment. MEDICATIONS Current Outpatient Medications Medication Instructions cephalexin (KEFLEX) 500 mg, 3 times daily ketorolac (TORADOL) 10 mg, Every 8 hours PRN levonorgestrel (Celine) 13.5 MG IUD as directed Intrauterine ALLERGIES Allergies Allergen Reactions Amoxicillin Unknown Cefdinir Unknown Penicillin G Swelling and Unknown SURGICAL HISTORY Past Surgical History: Procedure Laterality Date LAPAROSCOPY ABDOMEN DIAGNOSTIC 07/02/2022 Diagnostic laparoscopy w/left ovarian cystectomy and lysis of bowel adhesion from pelvic side wall OVARIAN CYST REMOVAL Right 03/2021 15 cm cyst PAP SMEAR 03/04/2022 negative REVIEW OF SYSTEMS Review of Systems: Review of Systems All other systems reviewed and are negative. OBJECTIVE Objective: Physical Exam Constitutional: Appearance: Normal appearance. She is well-developed. Genitourinary: Vulva normal. Cardiovascular: Rate and Rhythm: Normal rate and regular rhythm. Pulmonary: Effort: Pulmonary effort is normal. Breath sounds: Normal breath sounds. Abdominal: General: Bowel sounds are normal. There is no distension. Palpations: Abdomen is soft. Tenderness: There is no abdominal tenderness. There is no guarding or rebound. Musculoskeletal: General: No swelling. Normal range of motion. Right lower leg: No edema. Left lower leg: No edema. Neurological: Mental Status: She is alert and oriented to person, place, and time. Skin: General: Skin is warm and dry. Psychiatric: Mood and Affect: Mood normal. Behavior: Behavior normal. Vitals and nursing note reviewed. Exam conducted with a special education math teacher present. Vitals: Estimated body mass index is 19.64 kg/m as calculated from the following: Height as of 04/03/24: 5' 5 . Weight as of this encounter: 118 lb. BP: 100/60 No LMP recorded. Patient has had an implant. ASSESSMENT & PLAN Assessment/Plan Encounter Diagnosis: ICD-10-CM 1. Encounter for IUD removal Z30.432 IUD Removal Date/Time: 04/23/2024 9:01 AM Performed by: Dmitri Gold DO Authorized by: Dmitri Gold DO Consent: Consent obtained: Written Consent given by: Patient Procedure risks and benefits discussed: yes Patient questions answered: yes Patient agrees, verbalizes understanding, and wants to proceed: yes Educational handouts given: no Instructions and paperwork completed: no Procedure: Removed with no complications: yes Removal due to mechanical complications of IUD: no Removal due to infection and inflammatory reaction: no IUD Removal: Patient presents today for removal of IUD. Written consent was obtained and patient was placed in dorsal lithotomy position with feet in stirrups. A sterile speculum was inserted into the vagina and the cervix was visualized. The IUD strings were grasped gently with forceps and the IUD was removed in its entirety without difficulty. The IUD was shown to the patient then properly discarded. Follow Up: Patient is to return to the office for annual exam unless needed otherwise Documented by Christine Lopez LPN on behalf of: Dmitri Gold DO documented in this encounter [facility] 04-18-2024 History of Present illness Narrative Reason for Appointment: Patient ID: Fadia Lan is a 23 y.o. female who presents for Contraception and Pelvic Pain Patient presents today for Acute Visit. MEDICATIONS Current Outpatient Medications Medication Instructions cephalexin (KEFLEX) 500 mg, 3 times daily ketorolac (TORADOL) 10 mg, Every 8 hours PRN levonorgestrel (Celine) 13.5 MG IUD as directed Intrauterine meloxicam (MOBIC) 15 mg, Oral, Daily, Take one pill PO Daily ondansetron ODT (ZOFRAN-ODT) 4 mg, Every 8 hours PRN ALLERGIES Allergies Allergen Reactions Amoxicillin Unknown Cefdinir Unknown Penicillin G Swelling and Unknown PROBLEMS Active Ambulatory Problems Diagnosis Date Noted No Active Ambulatory Problems Resolved Ambulatory Problems Diagnosis Date Noted No Resolved Ambulatory Problems Past Medical History: Diagnosis Date 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 SURGICAL HISTORY Past Surgical History: Procedure Laterality Date LAPAROSCOPY ABDOMEN DIAGNOSTIC 07/02/2022 Diagnostic laparoscopy w/left ovarian cystectomy and lysis of bowel adhesion from pelvic side wall OVARIAN CYST REMOVAL Right 03/2021 15 cm cyst PAP SMEAR 03/04/2022 negative REVIEW OF SYSTEMS Review of Systems: Review of Systems Constitutional: Negative. HENT: Negative. Eyes: Negative. Respiratory: Negative. Cardiovascular: Negative. Gastrointestinal: Negative. Bloating Genitourinary: Positive for pelvic pain. Musculoskeletal: Negative. Skin: Negative. Neurological: Negative. All other systems reviewed and are negative. Hematological: Negative. Endocrine: Negative. Allergic/Immunologic: Negative. OBJECTIVE Objective: Physical Exam Constitutional: Appearance: Normal appearance. She is well-developed. Cardiovascular: Rate and Rhythm: Normal rate and regular rhythm. Pulmonary: Effort: Pulmonary effort is normal. Breath sounds: Normal breath sounds. Abdominal: General: Bowel sounds are normal. There is no distension. Palpations: Abdomen is soft. Tenderness: There is no abdominal tenderness. There is no guarding or rebound. Musculoskeletal: General: No swelling. Normal range of motion. Right lower leg: No edema. Left lower leg: No edema. Neurological: Mental Status: She is alert and oriented to person, place, and time. Skin: General: Skin is warm and dry. Psychiatric: Mood and Affect: Mood normal. Behavior: Behavior normal. Vitals and nursing note reviewed. Exam conducted with a special education math teacher present. Vitals: Estimated body mass index is 19.28 kg/m as calculated from the following: Height as of 04/03/24: 5' 5 . Weight as of this encounter: 115 lb 13.6 oz. BP: 110/60 No LMP recorded. Patient has had an implant. ASSESSMENT & PLAN ICD-10-CM 1. Encounter for routine checking of intrauterine contraceptive device (IUD) Z30.431 2. Left sided abdominal pain R10.9 Pt presents with pain and follow up from ER. Pt states bowel habits are normal and feels bloated all the time. Will remove Celine and discussed gastro referral for future. Pt is currently taking ketoralac and keflex. Documented by Edita Romo LPN on behalf of: Dmitri Gold DO documented in this encounter [facility] 04-03-2024 History of Present illness Narrative Patient: Fadia Lan : 2000 [...] is full without any type of palpable [place] she has full plantar flexion without pain [...] is going to return in 2 weeks. Zaid Santos DPM FACSANG documented in this encounter [facility] 07-02-2022 Note OPERATIVE NOTE OPERATION DATE: 07/02/2022 PROCEDURE: Diagnostic laparoscopy with left ovarian cystectomy and lysis of bowel adhesions from the pelvic side wall. PREOPERATIVE DIAGNOSIS: Pelvic pain, left ovarian cyst. POSTOPERATIVE DIAGNOSIS: Pelvic pain, left ovarian cyst, bowel adhesions to the left pelvic side wall. ANESTHESIA: General. SURGEON: Dmitri Gold D.O. RETAIL BEAUTY SPECIALIST: YASEMIN Stauffer URINE OUTPUT: Yellow and clear. [...] to Recovery Room in stable condition. [facility] 10-10-2020 History of Present illness Narrative Discharge [...] from the procedure. documented in this encounter Mr. Youth Phone: 10-10-2020 Hospital Discharge instructions Leon Leon RN - 10/10/2020 SAME [...] surgeon in [address] Rao -- [place] office [phone] [place] office [phone] documented in this encounter Mr. Youth Phone: Evaluation note Diagnosis Flank pain- Primary Abdominal pain, unspecified site Dermoid cyst of right ovary Post-op pain Other acute postoperative pain Pelvic pain Right ovarian cyst Other and unspecified ovarian cyst documented in this encounter Mr. Youth Phone: evaluation noteNo assessment information available [facility] Work Phone: Evaluation note* Diagnosis Contusion of left foot, initial encounter- Primary Left ankle instability Other joint derangement, not elsewhere classified, ankle and foot Peroneal tendonitis of left lower extremity Other enthesopathy of left foot and ankle Ankle contracture, left Sprain of left foot, initial encounter [facility] Diagnosis Encounter for routine checking of intrauterine contraceptive device (IUD) Left sided abdominal pain Abdominal pain, unspecified site [facility] Diagnosis Encounter for IUD removal [facility] Diagnosis Left ankle instability- Primary Other joint derangement, not elsewhere classified, ankle and foot Peroneal tendonitis of left lower extremity [facility] Diagnosis Peroneal tendonitis of left lower extremity- Primary Other enthesopathy of left foot and ankle [facility] Diagnosis Vaginal discharge Leukorrhea, not specified as infective History of ovarian cyst Personal history of other genital system and obstetric disorders Yeast infection Encounter for surveillance of other contraceptive documented in this encounter [facility] Summary Purpose Family History No Family History Records FoundNo Family History Records FoundNo Family History Records FoundNo Family History Records FoundNo Family History Records Found Advance Directives Advance Directive Response Recorded Date/ Time Advance Directives No January 14 1:30pm Hospital Course Note HNO ID: [id number] Author: Alison Morales Service: General Internal Medicine [...] section and content) DATE CREATED AUTHOR 08/14/2019 [facility] DATE CREATED AUTHOR AUTHOR'S ORGANIZ ATION 10/15/2020 [facility] DATE CREATED AUTHOR AUTHOR'S ORGANIZ ATION 08/26/2022 [facility] DATE CREATED AUTHOR AUTHOR'S ORGANIZ ATION 05/30/2024 [facility] DATE CREATED AUTHOR AUTHOR'S ORGANÁNGEL ATION 07/01/2024 [facility] EPIC Reason for Visit (unrecogniz ed section and content) Reason Comments Flank Pain pain upon movement; left sided Reason Comments Foot Pain *BWC* LT foot with t endonosis Reason Comments Contraception Pelvic Pain Reason Comments Contraception Reason Comments Foot Problem F/U LT tendinitis in j x1 Reason Comments Ankle Injury *BWC* F/U LT ankle c ontusion Reason Comments Vaginitis/Bacterial Vaginosis Ordered Prescriptions (unrec ognized section and content) [...] End: January 09, 2024 Major Garces Jr, DO Attending Provider Active S tart: January 09, 2024 End: January 09, 2024 Team Status: Inactive Member Role Status Cash Dinero MD Primary Care Provider Active Start: January 25, 2024 End: January 25, 2024 Major Garces Jr, DO Attending Provider Active S tart: January 25, 2024 End: January 25, 2024 Team Status: Inactive Member Role Status Cash Dinero MD Primary Care Provider Active Start: February 20, 2024 End: February 20, 2024 Major Garces Jr, DO Attending Provider Active S tart: February 20, 2024 End: February 20, 2024 Team Status: Inactive Member Role Status Dates Danilo Dinero MD Primary Care Provider Active Start: March 09, 2024 End: March 09, 2024 Major Garces Jr, DO Attending Provider Active S tart: March 09, 2024 End: March 09, 2024 Quality Control Inspector Heading Relationship Specialty Start Date End Date Danilo Dinero MD [address] [place] [facility] [address] PCP - General Family Medicine 02/15/23 Quality Control Inspector Heading Relationship Specialty Start Date End Date Danilo Dinero MD [address] [place] [facility] [address] PCP - General Family Medicine 02/15/23 Quality Control Inspector Heading Relationship Specialty Start Date End Date Danilo Dinero MD [address] [place] [facility] [address] PCP - General Family Medicine 02/15/23 Quality Control Inspector Heading Relationship Specialty Start Date End Date Danilo Dinero MD [address] [place] [address] PCP - General Family Medicine 02/15/23 Quality Control Inspector Heading Relationship Specialty Start Date End Date Danilo Dinero MD [address] [place] [facility] [address] PCP - General Family Medicine 02/15/23 Quality Control Inspector Heading Relationship Specialty Start Date End Date Danilo Dinero MD [address] [place] [address] PCP - General Family Medicine 02/15/23 Quality Control Inspector Heading Relationship Specialty Start Date End Date Danilo Dinero MD [address] [place] [facility] [address] PCP - General Family Medicine 02/15/23 Quality Control Inspector Heading Relationship Specialty Start Date End Date Danilo Dinero MD [address] [place] [facility] [phone] PCP - General Family Medicine 02/15/23 Quality Control Inspector Heading Relationship Specialty Start Date End Date Danilo Dinero MD [address] [place] [facility] [phone] PCP - General Family Medicine 02/15/23 Goals [...] BE BASED ON THE PRIMARY CLINICAL RECORDS. [facility]. provides no warranty or guarantee of the accuracy or completeness of information in this document.
[2024-08-07 05:07] LABS: QuantiFERON-TB Gold Plus Negative (Negative)
== END 2024-08-03 07:36 | disposition home or self-care (01) ==
PROVIDERS: PCP Family Medicine; Visit Provider Family Medicine
DX: Z02.0 Encounter for examination for admission to educational institution (principal)
CPT/HCPCS: 36415; 86480

== ENCOUNTER 2024-10-04 06:43 | Outpatient (OUT) | payer OTHER, SELFPAY ==
[2024-10-05 08:11] LABS: Varicella-Zoster V Ab, IgG Reactive (Non Reactive)
== END 2024-10-04 06:44 | disposition home or self-care (01) ==
LOC: LAB 06:44
PROVIDERS: PCP Family Medicine; Visit Provider Family Medicine
DX: Z02.0 Encounter for examination for admission to educational institution (principal)
CPT/HCPCS: 36415; 86787

== ENCOUNTER 2024-10-12 11:55 | Emergency (ER) | payer OTHER, SELFPAY ==
[2024-10-12 12:00] VITALS: BP 117/70; PULSE 64; TEMP 36.8; BMI 20.8
[2024-10-12] MEDS: KETOROLAC TROMETHAMINE 30 MG/ML VIAL 15 MG IVP (12:27)
[2024-10-12 12:33] LABS: Bilirubin Urine NEGATIVE (NEGATIVE); Blood Urine MODERATE (NEGATIVE); Clarity Urine CLEAR (CLEAR); Color Urine LT. YELLOW (YELLOW); Glucose Urine UA NEGATIVE (NEGATIVE); Ketones Urine NEGATIVE (NEGATIVE); Leukocyte Esterase Urine NEGATIVE (NEGATIVE); Nitrite Urine NEGATIVE (NEGATIVE); Protein Urine NEGATIVE (NEG/TRACE); Specific Gravity Urine 1.025 (1.005-1.025); Urobilinogen Urine 0.2 EU/dL (0.2-1.0)
[2024-10-12 12:34] LABS: Urine Microscopic Indicated YES
[2024-10-12 12:38] LABS: Basophils Percent Auto 0.5 % (0.2-2.0); Eosinophils Absolute Auto 0.3 10^3/uL (0.0-0.7); Eosinophils Percent Auto 5.1 % (0.9-7.0); Hematocrit 40.1 % (36.0-48.0); Immature Granulocytes Abs Auto 0.01 10^3/uL (0.00-0.03); Immature Granulocytes Pct Auto 0.2 % (0.0-0.5); Lymphocytes Absolute Auto 2.1 10^3/uL (1.2-3.8); Mean Corpuscular HGB Conc 34.9 g/dL (29.9-35.2); Mean Corpuscular Hemoglobin 32.1 pg (26.7-34.0); Mean Platelet Volume 8.7 fL (9.5-13.5); Monocytes Absolute Auto 0.5 10^3/uL (0.3-0.8); Monocytes Percent Auto 8.5 % (1.7-12.0); Neutrophils Percent Auto 50.7 % (43.0-75.0); Platelet Count 329 10^3/uL (150-450); Red Blood Count 4.36 10^6/uL (4.20-5.40); Red Cell Distribution Width 11.5 % (11.0-15.0); White Blood Count 5.9 10^3/uL (4.0-11.0)
[2024-10-12 12:43] LABS: Bacteria Urine MODERATE #/HPF (NONE SEEN); Cast Seen? NONE SEEN #/LPF (NONE SEEN); Crystals Seen? None Seen #/HPF (None Seen); Mucus Urine TRACE (NONE SEEN); RBC Urine 0-2 #/HPF (0-2); Squamous Epithelial Cell Urine FEW #/LPF (NONE/RARE); Urine Culture Indicated YES-FRMC; WBC Urine 0-2 #/HPF (NONE SEEN)
[2024-10-12 12:50] LABS: HCG Qualitative NEGATIVE (NEGATIVE); Internal Control Within Normal Limits
[2024-10-12 13:02] LABS: Alanine Aminotransferase 24 U/L (14-59); Albumin Globulin Ratio 1.2; Albumin Level 3.7 g/dL (3.4-5.0); Alkaline Phosphatase 55 U/L (46-116); Anion Gap 10.8; Aspartate Amino Transferase 18 U/L (15-37); BUN Creatinine Ratio 13.7; Bilirubin Total 0.9 mg/dL (0.2-1.0); Calcium 8.8 mg/dL (8.5-10.1); Chloride 103 mmol/L (98-107); Estimated GFR (African America >60 (>=60 mL/min/1.73m^2); Estimated GFR (Non-African Ame >60 (>=60 mL/min/1.73m^2); Globulin 3.1 g/dL; Glucose 78 mg/dL (74-106); Potassium 3.8 mmol/L (3.5-5.1); Sodium 141 mmol/L (136-145); Total Protein 6.8 g/dL (6.4-8.2)
[2024-10-12 14:09] VITALS: BP 107/61; PULSE 64; O2SAT 99
--- NOTE | 2024-10-12 14:24 | ED.GENADUL1 ---
HPI HPI - General Adult General Chief complaint: Abdominal Pain Stated complaint: ABDOMINAL PAIN, CRAMPING, L BACK PAIN Time Seen by Provider: 10/12/24 12:11 Source: patient Mode of arrival: walk-in Limitations: no limitations History of Present Illness HPI narrative: The patient is a 24-year-old female with history of right-sided oophorectomy after she had a more than 10 cm ovarian cyst, she is coming to the ER with a left lower quadrant pain that been going on for the last 24 hours, the pain radiated to the flank area on the left side She denies any burning with urination nausea vomiting or any other concerns Related Data Home Medications ?Medication ?Instructions ?Recorded ?Confirmed birthcontrol 10/13/23 Previous Rx's ?Medication ?Instructions ?Recorded naproxen 250 mg tablet 250 mg PO BID PRN pain #20 tabs 10/12/24 nitrofurantoin 100 mg PO BID 5 days #10 caps 10/12/24 monohydrate/macrocrystals 100 mg capsule (Macrobid) Allergies Allergy/AdvReac Type Severity Reaction Status Date / Time Penicillins Allergy Swelling Verified 10/12/24 11:59 of Lip/Tongue/Throat Opioid HPI Opioid Management Most Recent Opioid Data: Last Pain Scale 2 Today, 14:10 Last ED Pain Assessment Today, 14:10 Last MAR Pain Assessment Today, 12:27 Review of Systems ROS Status of ROS 10 or more systems reviewed and unremarkable except as noted in history and below PFSH PFS Social History Smoking status: Never smoker Little interest or pleasure in doing things: not at all Feeling down, depressed, or hopeless: not at all Exam Narrative Exam Narrative: Nurses notes and vital signs reviewed and patient is not hypoxic. General: Well-appearing and in no apparent distress. Skin: Warm, dry, no pallor noted. No rash. Head: Normocephalic, atraumatic. Neck: Supple, non-tender. Eye: Pupils are equal, round and EOMI. No scleral icterus. Ears, Nose, Mouth, and Throat: TM are clear, no nasal mucosal hypertrophy. Oral mucosa is moist, no posterior oropharynx erythema, uvula is mid-line Cardiovascular: Regular Rate and Rhythm without murmur, gallop or rub. Respiratory: No accessory muscle use or respiratory distress. Lungs are clear to auscultation, no wheezing, rales or rhonchi Chest Wall: no tenderness Back: No midline thoracic or lumbar vertebral tenderness. Left CVA tenderness Musculoskeletal: normal ROM, no calf or popliteal tenderness, no lower extremity edema/swelling GI: Abdomen is soft, non-distended. Normal bowel sounds. No masses appreciated. Left lower quadrant tenderness. Neurological: A&O x4. No cranial nerve dysfunction observed. Constitutional Vital Signs, click to edit/add: Last Vital Signs Temp 98.3 F 10/12/24 12:00 Pulse 74 10/12/24 16:24 Resp 16 10/12/24 16:24 BP 102/60 10/12/24 16:24 Pulse Ox 99 10/12/24 16:24 O2 Del Method Room Air 10/12/24 16:24 Course Vital Signs Vital signs: Vital Signs Temperature 98.3 F 10/12/24 12:00 Pulse Rate 64 10/12/24 12:00 Respiratory Rate 20 10/12/24 12:00 Blood Pressure 117/70 10/12/24 12:00 Oxygen Delivery Method Room Air 10/12/24 12:00 Temperature 98.3 F 10/12/24 12:00 Pulse Rate 74 10/12/24 16:24 Respiratory Rate 16 10/12/24 16:24 Blood Pressure 102/60 10/12/24 16:24 Pulse Oximetry 99 10/12/24 16:24 Oxygen Delivery Method Room Air 10/12/24 16:24 Medical Decision Making MDM Narrative Medical decision making narrative: The patient CBC and chemistry showed no acute pathology Negative test Urine shows some blood as well as bacteria CAT scan of the abdomen showed that the patient have bilateral kidney stones with constipation but there was no hydronephrosis or any obstructing kidney stones The patient also had an ultrasound of the left lower quadrant and at that showed that the patient have ovarian cyst although there is no specific they mention given but also have pelvic congestion syndrome Patient feeling much better after initial treatment she was discharged home with supportive care in addition to hydration and follow-up with the APPLIANCE ASSEMBLER as outpatient The patient is to follow up with primary care physician in next 2-3 days or to return to the emergency department should any of the signs or symptoms worsen or new symptoms develop. The patient agrees with the following Diagnosis and Treatment plan and the patient will be discharged home. Lab Data Labs: Lab Results 10/12/24 10/12/24 Range/Units 12:20 12:25 WBC 5.9 (4.0-11.0) 10^3/uL RBC 4.36 (4.20-5.40) 10^6/uL Hgb 14.0 (12.0-16.0) g/dL Hct 40.1 (36.0-48.0) % MCV 92.0 (81.0-99.0) fL MCH 32.1 (26.7-34.0) pg MCHC 34.9 (29.9-35.2) g/dL RDW 11.5 (11.0-15.0) % Plt Count 329 (150-450) 10^3/uL MPV 8.7 L (9.5-13.5) fL Neut % (Auto) 50.7 (43.0-75.0) % Lymph % (Auto) 35.0 (20.5-60.0) % Wheeler % (Auto) 8.5 (1.7-12.0) % Eos % (Auto) 5.1 (0.9-7.0) % Baso % (Auto) 0.5 (0.2-2.0) % Neut # (Auto) 3.0 (1.4-6.5) 10^3/uL Lymph # (Auto) 2.1 (1.2-3.8) 10^3/uL Wheeler # (Auto) 0.5 (0.3-0.8) 10^3/uL Eos # (Auto) 0.3 (0.0-0.7) 10^3/uL Baso # (Auto) 0.0 (0.0-0.1) 10^3/uL Abs Immat Gran (auto) 0.01 (0.00-0.03) 10^3/uL Imm/Tot Granulo (auto) 0.2 (0.0-0.5) % Sodium 141 (136-145) mmol/L Potassium 3.8 (3.5-5.1) mmol/L Chloride 103 (98-107) mmol/L Carbon Dioxide 31.0 (21.0-32.0) mmol/L Anion Gap 10.8 BUN 10.0 (7.0-18.0) mg/dL Creatinine 0.73 (0.55-1.02) mg/dL Est GFR ( Amer) >60 (>=60 mL/min/1.73m^2) Est GFR (Non-Af Amer) >60 (>=60 mL/min/1.73m^2) BUN/Creatinine Ratio 13.7 Glucose 78 (74-106) mg/dL Calcium 8.8 (8.5-10.1) mg/dL Total Bilirubin 0.9 (0.2-1.0) mg/dL AST 18 (15-37) U/L ALT 24 (14-59) U/L Alkaline Phosphatase 55 (46-116) U/L Total Protein 6.8 (6.4-8.2) g/dL Albumin 3.7 (3.4-5.0) g/dL Globulin 3.1 g/dL Albumin/Globulin Ratio 1.2 Serum HCG, Qual Negative (NEGATIVE) Urine Color Lt. yellow (YELLOW) Urine Clarity Clear (CLEAR) Urine pH 6.0 (5.0-9.0) Ur Specific [place] 1.025 (1.005-1.025) Urine Protein Negative (NEG/TRACE) mg/dL Urine Glucose (UA) Negative (NEGATIVE) mg/dL Urine Ketones Negative (NEGATIVE) mg/dL Urine Occult Blood Moderate A (NEGATIVE) Urine Nitrite Negative (NEGATIVE) Urine Bilirubin Negative (NEGATIVE) Urine Urobilinogen 0.2 (0.2-1.0) EU/dL Ur Leukocyte Esterase Negative (NEGATIVE) Urine RBC 0-2 (0-2) #/HPF Urine WBC 0-2 A (NONE SEEN) #/HPF Ur Squamous Epith Cells Few A (NONE/RARE) #/LPF Urine Crystals None seen (None Seen) #/HPF Urine Bacteria Moderate A (NONE SEEN) #/HPF Urine Casts None seen (NONE SEEN) #/LPF Urine Mucus Trace A (NONE SEEN) Ur Culture Indicated? Yes-[facility] Discharge Plan Discharge Chief Complaint: Abdominal Pain Clinical Impression: Female pelvic congestion syndrome, Ovarian cyst, Kidney stone, UTI (urinary tract infection), Constipation Patient Disposition: Home, Self-Care Time of Disposition Decision: 16:05 Condition: Good Prescriptions / Home Meds: New nitrofurantoin monohyd/m-cryst [Macrobid] 100 mg capsule 100 mg PO BID 5 Days Qty: 10 0RF Rx Instructions: must administer with a meal/food naproxen 250 mg tablet 250 mg PO BID PRN (Reason: pain) Qty: 20 0RF No Action birthcontrol Print Language: Scottish Instructions: Ovarian Cyst (ED), Constipation (ED), Kidney Stones (ED) Referrals: Todd José MD [Primary Care Provider, Family Practice] - 1 week Discharge Date/Time: 10/12/24 16:20
[2024-10-12 16:24] VITALS: BP 102/60; PULSE 74; O2SAT 99
== END 2024-10-12 16:20 | disposition home or self-care (01) ==
PROVIDERS: Emergency Provider Emergency Medicine; PCP Family Medicine
DX: N83.202 Unspecified ovarian cyst, left side (principal); Z90.721 Acquired absence of ovaries, unilateral; N39.0 Urinary tract infection, site not specified; N20.0 Calculus of kidney; K59.00 Constipation, unspecified; N94.89 Other specified conditions associated with female genital organs and menstrual cycle
CPT/HCPCS: 36415; 74176; 76830; 80053; 81001; 84703; 85025; 87086; 96374; 99285; J1885

== ENCOUNTER 2025-02-14 10:46 | Outpatient (OUT) | payer OTHER, SELFPAY ==
--- OUTSIDE RECORDS SUMMARY | 2025-02-14 10:50 | XMS_ITS | Encounter Summary ---
Author Organization [facility] Address [address] [place] [address] Care Team Providers Care Progressive Care Unit Registered Nurse Name Role Phone Todd José MD Primary Care Provider [phone] Encounter Details Date Type Department Care Team (Late st Contact Info) Description 04/16/2024 Abstract [facility] [address] [id number] Dmitri Gold DO [address] [facility] [place] [address] Social History Tobacco Use Types Packs/Day Years Used Date Smoking Tobacco: Never Smokeless Tobacco: Never Alcohol Use Standard Drinks/Week Comments Defer 0 (1 standard drink = 0.6 oz pur e alcohol) Comments No Sex and Gender Information Value Date Recorded Sex Assigned at Female 02/08/2023 9:31 AM EDT Legal Sex Female 7:07 PM EDT Gender Identity Female 02/08/2023 9:31 AM EDT Sexual Orientation Not on file documented as of this encounter Plan of Treatment Not on file documented as of this encounter Visit Diagnoses Not on filedocumented in this encounter Care Teams Progressive Care Unit Registered Nurse Relationship Specialty Start Date End Date Todd José MD PCP - General Family Medicine 02/15/23 documented as of this encounter
--- OUTSIDE RECORDS SUMMARY | 2025-02-14 10:50 | XMS_ITS | Encounter Summary ---
Author Organization [facility] Address [address] [place] [address] Care Team Providers Care Graphite Grinder Name Role Phone Todd José MD Primary Care Provider [phone] A, Hvi Card Consult Unavailable Unavailable Isela Robert DO Unavailable Source Comments In the event this information is protected by the Federal Confidentiality of Alcohol and Drug AbusePatient Records regulations: The Federal rules restrict any use of the information to criminally investigate or prosecute any alcohol or drug abuse patient.[facility] Encounter Details Date Type Department Care Team (Late st Contact Info) Description 07/10/2019 Patient Msg Cardiology [address] [id number] Provider, Ccsunita Tilt table test 07/09/2019 Social History Tobacco Use Types Packs/Day Years Used Date Smoking Tobacco: Never Smokeless Tobacco: Never Alcohol Use Standard Drinks/Week Comments Not Currently 0 (1 standard drink = 0.6 oz pur e alcohol) PHQ-2 Answer Date Recorded PHQ-2 score 3 06/01/2019 Comments Unknown Sex and Gender Information Value Date Recorded Sex Assigned at Not on file Legal Sex Female 11:29 AM EST Gender Identity Not on file Sexual Orientation Not on file documented as of this encounter Functional Status * Are you deaf or do you have serious difficulty hearing? Answer Date of Assessment Author No 05/16/2019 2:34 PM Hanna Hinds RN * Are you blind or do you have serious difficulty seeing, even when wearing glasses? Answer Date of Assessment Author No 05/16/2019 2:34 PM Hanna Hinds RN * Do you have serious difficulty walking or climbing stairs? Answer Date of Assessment Author Yes 05/16/2019 2:34 PM Hanna Hinds RN * Do you have difficulty dressing or bathing? Answer Date of Assessment Author No 05/16/2019 2:34 PM Hanna Hinds RN * Because of a physical, mental, or emotional condition, do you have difficulty doing errands alone such as visiting a doctor's office or shopping? Answer Date of Assessment Author Yes 05/16/2019 2:34 PM Hanna Hinds RN documented as of this encounter Mental Status * Because of a physical, mental, or emotional condition, do you have serious difficulty concentrating, remembering, or making decisions? Answer Entry Date Author No 05/16/2019 2:34 PM Hanna Hinds RN documented in this encounter Plan of Treatment Not on file documented as of this encounter Visit Diagnoses Not on filedocumented in this encounter Care Teams Graphite Grinder Relationship Specialty Start Date End Date Todd José MD PCP - General Family Medicine 04/27/19 A, Hvi Card Consult [address] [place] [address] Consulting Cardiology 05/12/19 Robert Weiss DO [address] [place] [address] Primary Staff Physician Cardiology 11/27/19 Claudia @ [facility]. Community Resource 05/17/19 documented as of this encounter
--- OUTSIDE RECORDS SUMMARY | 2025-02-14 10:50 | XMS_ITS | Encounter Summary ---
Author Organization [facility] Address [address] [place] [address] Care Team Providers Care Water Treatment Specialist Name Role Phone Todd José MD Primary Care Provider [phone] Encounter Details Date Type Department Care Team (Late st Contact Info) Description 01/25/2025 Abstract [facility] [address] [place] [phone] Wicho Morillo, DPM FACFAS [address] [place] [id number] Social History Tobacco Use Types Packs/Day Years Used Date Smoking Tobacco: Never Smokeless Tobacco: Never Alcohol Use Standard Drinks/Week Comments Yes 0 (1 standard drink = 0.6 oz pur e alcohol) social Comments No Sex and Gender Information Value Date Recorded Sex Assigned at Female 02/08/2023 9:31 AM EDT Legal Sex Female 7:07 PM EDT Gender Identity Female 02/08/2023 9:31 AM EDT Sexual Orientation Not on file documented as of this encounter Plan of Treatment Not on file documented as of this encounter Visit Diagnoses Not on filedocumented in this encounter Care Teams Water Treatment Specialist Relationship Specialty Start Date End Date Todd José MD PCP - General Family Medicine 02/15/23 documented as of this encounter
--- OUTSIDE RECORDS SUMMARY | 2025-02-14 10:50 | XMS_ITS | Clinical Summary ---
Author Organization [facility] Address [address] [place] [address] Care Team Providers Care Crossbar Switch Adjuster Name Role Phone Todd José MD Primary Care Provider [phone], Hvi Card Consult Unavailable Unavailable Robert Weiss DO Unavailable Allergies No known active allergies Medications pyridostigmine bromide 30 mg tab Take 60 mg by mouth. Active midodrine (PROAMATINE) 2.5 mg tablet Take 7.5 mg by mouth three times daily. Active citalopram hydrobromide (CELEXA) 10 mg tablet Take 10 mg by mouth once daily. Active sodium chloride 1 g tab Take 1 g by mouth once daily. Active POTASSIUM ORAL Take by mouth. Active Active Problems Problem Noted Date Diagnosed Date Syncope 05/13/2019 Assessment & Plan (05/15/2019 5:43 PM EST): Assessment: Diagnosed with possible POTS recently and [...] F/u with Syncope clinic and Dysautonomia clinic Assessment & Plan (05/14/2019 6:15 PM EST): Assessment: Diagnosed with possible POTS recently and [...] F/u with Autonomic disorder clinic Telemetry monitoring Other chest pain 05/13/2019 Assessment & Plan (05/15/2019 5:43 PM EST): Assessment: Patient has had intermittent atypical chest pain, elevated troponin, and mobile lesion on the ventricular side of the TV. EKG sinus rhythm demonstrates sinus arrhythmia. Telemetry has episodes of sinus tachycardia but is otherwise unremarkable. ESR and CRP normal, myocarditis unlikely. TSH normal. Troponin normal here. PLAN: Obtain echocardiogram Hold on further testing such as cardiac MRI per Cardiology Assessment & Plan (05/14/2019 6:10 PM EST): Assessment: Patient has had intermittent atypical chest pain, elevated troponin, and mobile lesion on the ventricular side of the TV. EKG sinus rhythm demonstrates sinus arrhythmia. PLAN: Obtain echocardiogram Hold on further testing such as cardiac MRI per Cardiology Elevated troponin 05/13/2019 Assessment & Plan (05/14/2019 6:08 PM EST): Assessment: History of mild troponin elevation during past hospitalizations. Her troponin is normal now. EKG shows sinus arrhythmia. PLAN: Awaiting echocardiogram: history of ?prominent chordal structure near the TV. F/u Cardiology recs Seizure-like activity 05/12/2019 Family History Medical History Relation Comments No Known Problems Brother No Known Problems Father No Known Problems Mother No Known Problems Sister Relation Status Comments Brother Alive Father Alive Mother Alive Sister Alive Social History Tobacco Use Types Packs/Day Years Used Date Smoking Tobacco: Never Smokeless Tobacco: Never Tobacco Cessation:Counseling Given: No Alcohol Use Standard Drinks/Week Comments Not Currently 0 (1 standard drink = 0.6 oz pur e alcohol) PHQ-2 Answer Date Recorded PHQ-2 score 3 06/01/2019 Area Deprivation Index Answer Date Daniel rded National Score (1-100), lower number is lower ri sk Not on file 05/22/2020 State Score (1-10), lower number is lower risk N ot on file 05/22/2020 Data from: https://www.neighborhoodatlas.medicine.[facility]/. Last address used for calculation Not on file 05/22/2020 Comments Unknown Sex and Gender Information Value Date Recorded Sex Assigned at Not on file Legal Sex Female 11:29 AM EST Gender Identity Not on file Sexual Orientation Not on file Last Filed Vital Signs Vital Sign Reading Time Taken Comments Blood Pressure 96/60 06/29/2019 10:43 AM EST Pulse 76 06/29/2019 10:43 AM EST Temperature 36.7 C (98.1 F) 05/16/2019 11:32 AM EST Respiratory Rate 18 06/04/2019 12:33 PM EST Oxygen Saturation 99% 06/29/2019 10:43 AM EST Inhaled Oxygen Concentration - - Weight 53.3 kg (117 lb 8 oz) 06/29/2019 3:14 PM EST Height 167.6 cm (5' 6 ) 06/29/2019 3:14 PM EST Body Mass Index 18.96 06/29/2019 3:14 PM EST Plan of Treatment Health Maintenance Due Date Last Done Comments Peds To Adult Transition Initial Discussion 2012 Peds To Adult Transition Annual Assessment 2014 HPV Vaccine (1 - 3-dose series) 2015 Anxiety Screening 2018 Depression Screening 2018 HIV Screening 2018 Hepatitis C Screening 2018 DTaP,Tdap,Td Vaccine (1 - Tdap) 2019 Hepatitis B Vaccine (1 of 3 - 19+ 3-dose series) 07/05 Cervical Cancer Screening 2021 Influenza Vaccine (#1) 2025 Insurance BLUE CARD PPO OOS Care Teams Crossbar Switch Adjuster Relationship Specialty Start Date End Date Todd José MD PCP - General Family Medicine 04/27/19 A, Hvi Card Consult [address] [place] [address] Consulting Cardiology 05/12/19 Robert Weiss DO [address] [place] [address] Primary Staff Physician Cardiology 11/27/19 Claudia @ [facility]. Community Resource 05/17/19
--- OUTSIDE RECORDS SUMMARY | 2025-02-14 10:50 | XMS_ITS | Encounter Summary ---
Author Organization [facility] Address [address] [place] [address] Care Team Providers Care Cell Room Operator Name Role Phone Todd José MD Primary Care Provider [phone] Encounter Details Date Type Department Care Team (Late st Contact Info) Description 10/17/2023 Clinisync Result Encounter [facility] External Department Unsolicited Nikhil Francis, DO [address] [facility] [place] [address] [place] [phone] Social History Tobacco Use Types Packs/Day Years Used Date Smoking Tobacco: Never Assessed Comments No Sex and Gender Information Value Date Recorded Sex Assigned at Female 02/08/2023 9:31 AM EDT Legal Sex Female 7:07 PM EDT Gender Identity Female 02/08/2023 9:31 AM EDT Sexual Orientation Not on file documented as of this encounter Plan of Treatment Not on file documented as of this encounter Procedures Procedure Name Priority Date/Time Associated Diagnosis Comments US PELVIS W/ TRANSVAGINAL 10/17/2023 1:51 PM EDT documented in this encounter Results * US PELVIS W/ TRANSVAGINAL (10/17/2023 1:51 PM EDT) Anatomical Region Laterality Modality Other 10/17/2023 1:51 PM EDT Narrative 10/17/2023 1:53 PM EDT The [address] [address] Ultrasound Report Signed Patient: FADIA LAN MR#: [id number] : 2000 Acct:[id number] Age/Sex: 23 / F ADM Date: 10/17/23 Loc: [facility] Attending Dr: Nikhil Francis D.O. Ordering Physician: Nikhil Francis D.O. Date of Service: 10/17/23 Procedure(s): US pelvis w/ transvaginal Accession Number(s): [id number] cc: Nikhil Francis D.O.; Todd José M.D. [place] [address] Patient Name: FADIA LAN MRN: [id number] date: 2000 Sex: F Assigned Patient Location: [facility] Current Patient Location: [facility] Accession/Order Number: [id number] Exam Date: 10/17/2023 13:00 Report Date: 10/17/2023 13:51 At the request of: NIKHIL FRANCIS Procedure: US pelvis w/ transvaginal EXAMINATION: US pelvis w/ transvaginal HISTORY: Left ovarian cyst follow up N83. COMPARISON: No relevant comparison available. FINDINGS: The uterus is normal in size, contour and myometrial echotexture measuring 7.7 x 6.0 x 4.3 cm. The uterus is anteverted. No focal myometrial mass. The endometrium measures 2.5 mm, normal. The right ovary is surgically absent The left ovary measures 3.9 x 2.2 x 2.4 cm. Normal color Doppler flow. Cystic area measuring 1.9 x 1.8 x 1.7 cm with peripheral soft tissue signal in central low-level echoes. Small amount of fluid in the pelvic cul-de-sac, physiologic in amount US/US pelvis w/ transvaginal IMPRESSION: Persistent cystic lesion of the left ovary measuring 1.9 cm. This could represent a functional cyst or complex cyst Electronically authenticated by: KRISTEN HOFFMANN Date: 10/17/2023 13:51 Dictated By: Kristen Hoffmann M.D. Signed By: 10/17/23 0398 DD/ 1351 TD/TT: Sales Force Administrator: Procedure Note Radiology, Radiologist, MD - 10/17/2023 [place] [address] Ultrasound Report Signed Patient: FADIA LAN JMR#: [id number] : 2000Acct:[id number] Age/Sex: 23 / FADM Date: 10/17/23 Loc: [facility] Attending Dr: Nikhil Francis D.O. Ordering Physician: Nikhil Francis D.O. Date of Service: 10/17/23 Procedure(s): US pelvis w/ transvaginal Accession Number(s): [id number] cc: Nikhil Francis D.O.; Todd José M.D. The [place] [id number] Patient Name: FADIA LAN MRN: [id number] date: 2000 Sex: F Assigned Patient Location: [facility] Current Patient Location: [facility] Accession/Order Number: [id number] Exam Date: 10/17/2023 13:00 Report Date: 10/17/2023 13:51 At the request of: NIKHIL FRANCIS Procedure: US pelvis w/ transvaginal EXAMINATION: US pelvis w/ transvaginal HISTORY: Left ovarian cyst follow up N83.202 COMPARISON: No relevant comparison available. FINDINGS: The uterus is normal in size, contour and myometrial echotexture measuring7.7 x 6.0 x 4.3 cm. The uterus is anteverted. No focal myometrial mass. The endometrium measures 2.5 mm, normal. The right ovary is surgically absent The left ovary measures 3.9 x 2.2 x 2.4 cm. Normal color Doppler flow.Cystic area measuring 1.9 x 1.8 x 1.7 cm with peripheral soft tissue signal in central low-level echoes. Small amount of fluid in the pelvic cul-de-sac, physiologic in amount US/US pelvis w/ transvaginal IMPRESSION: Persistent cystic lesion of the left ovary measuring 1.9 cm. This could represent a functional cyst or complex cyst Electronically authenticated by: KRISTEN HOFFMANN Date: 10/17/2023 13:51 Dictated By: Kristen Hoffmann M.D. Signed By:10/17/23 1353 DD/ 1351 TD/TT: Sales Force Administrator: us Nikhil Francis DO [facility] Final Result documented in this encounter Visit Diagnoses Not on filedocumented in this encounter Care Teams Cell Room Operator Relationship Specialty Start Date End Date Todd José MD PCP - General Family Medicine 02/15/23 documented as of this encounter
--- OUTSIDE RECORDS SUMMARY | 2025-02-14 10:50 | XMS_ITS | Encounter Summary ---
Author Organization [facility] Address [address] [place] [address] Care Team Providers Care Break Up Worker Name Role Phone Todd José MD Primary Care Provider [phone], Hvi Card Consult Unavailable Unavailable Isela Robert DO Unavailable Source Comments In the event this information is protected by the Federal Confidentiality of Alcohol and Drug AbusePatient Records regulations: The Federal rules restrict any use of the information to criminally investigate or prosecute any alcohol or drug abuse patient.[facility] Encounter Details Date Type Department Care Team (Late st Contact Info) Description 2019 Patient Msg Cardiology [address] [place] [phone] Provider, Ccf Tilt table instructions Social History Tobacco Use Types Packs/Day Years [...] on filedocumented in this encounter Care Teams Break Up Worker Relationship Specialty Start Date End Date Todd José MD PCP - General Family Medicine 04/27/19 A, Hvi Card Consult [address] [place] [address] Consulting Cardiology 05/12/19 Robert Weiss DO [address] [place] [address] Primary Staff Physician Cardiology 11/27/19 Claudia @ [facility]. Community Resource 05/17/19 documented as of this encounter
--- OUTSIDE RECORDS SUMMARY | 2025-02-14 10:50 | XMS_ITS | Encounter Summary ---
Author Organization [facility] Address [address] [place] [address] Care Team Providers Care Catalyst Supervisor Name Role Phone Todd José MD Primary Care Provider [phone], Hvi Card Consult Unavailable Unavailable Isela Robert DO Unavailable Source Comments In the event this information is protected by the Federal Confidentiality of Alcohol and Drug AbusePatient Records regulations: The Federal rules restrict any use of the information to criminally investigate or prosecute any alcohol or drug abuse patient.[facility] Encounter Details Date Type Department Care Team (Late st Contact Info) Description 08/24/2019 Patient Msg Cardiology [address] [place] [phone] Provider, Ccf Instructions for Tilt table test on 08/28/19 at 11:00am Social History Tobacco Use Types Packs/Day Years [...] on filedocumented in this encounter Care Teams Catalyst Supervisor Relationship Specialty Start Date End Date Todd José MD PCP - General Family Medicine 04/27/19 A, Hvi Card Consult [address] [place] [address] Consulting Cardiology 05/12/19 Robert Weiss DO [address] [place] [address] Primary Staff Physician Cardiology 11/27/19 Claudia @ [facility]. Community Resource 05/17/19 documented as of this encounter
--- OUTSIDE RECORDS SUMMARY | 2025-02-14 10:50 | XMS_ITS | Encounter Summary ---
Author Organization [facility] Address [address] [place] [address] Care Team Providers Care Crown Ironer Name Role Phone Todd José MD Primary Care Provider [phone], Hvi Card Consult Unavailable Unavailable Robert Weiss DO Unavailable Source Comments In the event this information is protected by the Federal Confidentiality of Alcohol and Drug AbusePatient Records regulations: The Federal rules restrict any use of the information to criminally investigate or prosecute any alcohol or drug abuse patient.[facility] Encounter Details Date Type Department Care Team (Late st Contact Info) Description 06/26/2019 Patient Msg Neurology [address] [place] [address] Ziyad Torres, DRAPERY SUPERVISOR.FILTERATION OPERATOR [address] [place] [address] Follow up Social History Tobacco Use Types Packs/Day Years [...] on filedocumented in this encounter Care Teams Crown Ironer Relationship Specialty Start Date End Date Todd José MD PCP - General Family Medicine 04/27/19 A, Hvi Card Consult [address] [place] [address] Consulting Cardiology 05/12/19 Robert Weiss DO [address] [place], [place] [address] Primary Staff Physician Cardiology 11/27/19 Claudia @ [facility]. Community Resource 05/17/19 documented as of this encounter
--- OUTSIDE RECORDS SUMMARY | 2025-02-14 10:50 | XMS_ITS | Encounter Summary ---
Author Organization [facility] Address [address] [place] [address] Care Team Providers Care Concrete Truck Driver Name Role Phone Todd José MD Primary Care Provider [phone] Encounter Details Date Type Department Care Team (Late st Contact Info) Description 09/05/2023 Clinisync Result Encounter [facility] External Department Unsolicited Nikhil Francis, DO [address] [facility] [place] [address] [place] [phone] Social History Tobacco Use Types Packs/Day Years [...] Associated Diagnosis Comments US PELVIS W/ TRANSVAGINAL 09/05/2023 7:31 AM EDT documented in this encounter Results * US PELVIS W/ TRANSVAGINAL (09/05/2023 7:31 AM EDT) Anatomical Region Laterality Modality Other 09/05/2023 7:31 AM EDT Narrative 09/05/2023 7:33 AM EDT The [address] [address] Ultrasound Report Signed Patient: FADIA LAN MR#: [id number] : 2000 Acct:[id number] Age/Sex: 23 / F ADM Date: 09/02/23 Loc: US Attending Dr: Nikhil Francis D.O. Ordering Physician: Nikhil Francis D.O. Date of Service: 09/02/23 Procedure(s): US pelvis w/ transvaginal Accession Number(s): [id number] cc: Nikhil Francis D.O.; Todd José M.D. [place] [address] Patient Name: FADIA LAN MRN: [id number] date: 2000 Sex: F Assigned Patient Location: US Current Patient Location: Accession/Order Number: [id number] Exam Date: 09/02/2023 16:07 Report Date: 09/05/2023 07:31 At the request of: NIKHIL FRANCIS Procedure: US pelvis w/ transvaginal EXAMINATION: US pelvis w/ transvaginal HISTORY: RIGHT SIDED ABDOMINAL PAIN R10.9 COMPARISON: No relevant comparison available. FINDINGS: Uterus is normal in size, contour and echotexture measuring 7.0 x 3.0 x 4.4 cm, retroverted. Linear hyperechogenicity identified within the endometrial cavity, normally positioned IUD The endometrium measures 5.6 mm, normal. The right ovary is not visualized consistent with provided history of hysterectomy Left ovary measures 5.1 x 2.7 x 3.2 cm. Normal color and Doppler flow. 3.2 cm area of anechoic echogenicity slightly irregular lama with no definite internal echoes Small amount of free fluid in the pelvic cul-de-sac likely physiologic US/US pelvis w/ transvaginal IMPRESSION: Normal position of IUD 3.2 cm left ovarian simple cyst Electronically authenticated by: KRISTEN HOFFMNAN Date: 09/05/2023 07:31 Dictated By: Kristen Hoffmann M.D. Signed By: 09/05/23 0733 DD/ 0731 TD/TT: Reconciliation Manager: Procedure Note Radiology, Radiologist, MD - 09/05/[address] [address] Ultrasound Report Signed Patient: FADIA LAN JMR#: [id number] : 2000Acct:[id number] Age/Sex: 23 / FADM Date: 09/02/23 Loc: US Attending Dr: Nikhil Francis D.O. Ordering Physician: Nikhil Francis D.O. Date of Service: 09/02/23 Procedure(s): US pelvis w/ transvaginal Accession Number(s): [id number] cc: Nikhil Francis D.O.; Todd José M.D. The [address] [address] Patient Name: FADIA LAN MRN: [id number] date: 2000 Sex: F Assigned Patient Location: US Current Patient Location: Accession/Order Number: [id number] Exam Date: 09/02/2023 16:07 Report Date: 09/05/2023 07:31 At the request of: NIKHIL FRANCIS Procedure: US pelvis w/ transvaginal EXAMINATION: US pelvis w/ transvaginal HISTORY: RIGHT SIDED ABDOMINAL PAIN R10.9 COMPARISON: No relevant comparison available. FINDINGS: Uterus is normal in size, contour and echotexture measuring 7.0 x 3.0 x4.4 cm, retroverted. Linear hyperechogenicity identified within the endometrial cavity,normally positioned IUD The endometrium measures 5.6 mm, normal. The right ovary is not visualized consistent with provided history of hysterectomy Left ovary measures 5.1 x 2.7 x 3.2 cm. Normal color and Doppler flow. 3.2cm area of anechoic echogenicity slightly irregular lama with no definite internal echoes Small amount of free fluid in the pelvic cul-de-sac likely physiologic US/US pelvis w/ transvaginal IMPRESSION: Normal position of IUD 3.2 cm left ovarian simple cyst Electronically authenticated by: KRISTEN HOFFMANN Date: 09/05/2023 07:31 Dictated By: Kristen Hoffmann M.D. Signed By:09/05/23 0733 DD/ TD/TT: Reconciliation Manager: us Nikhil Francis DO [facility] Final Result documented in this encounter Visit Diagnoses Not on filedocumented in this encounter Care Teams Concrete Truck Driver Relationship Specialty Start Date End Date Todd José MD PCP - General Family Medicine 02/15/23 documented as of this encounter
--- OUTSIDE RECORDS SUMMARY | 2025-02-14 10:50 | XMS_ITS | Encounter Summary ---
Author Organization [facility] Address [address] [place] [address] Care Team Providers Care Prescription Benefit Specialist Name Role Phone Todd José MD Primary Care Provider [phone] Encounter Details Date Type Department Care Team (Late st Contact Info) Description 04/03/2024 Telephone [facility] [address] [facility] [address] [place] [address] Wicho Morillo, DPM FACFAS [address] [place] [address] Social History Tobacco Use Types Packs/Day Years [...] on file documented as of this encounter Miscellaneous Notes * Telephone Encounter - Thea Domínguez MA - 04/04/2024 9:18 AM EDT C9 sent in. documented in this encounter Plan of Treatment Not on file documented as of this encounter Visit Diagnoses Not on filedocumented in this encounter Care Teams Prescription Benefit Specialist Relationship Specialty Start Date End Date Tdod José MD PCP - General Family Medicine 02/15/23 documented as of this encounter
--- OUTSIDE RECORDS SUMMARY | 2025-02-14 10:50 | XMS_ITS | Encounter Summary ---
Author Organization [facility] Address [address] [facility] [place] [address] Care Team Providers Care Packaging Mechanic Name Role Phone Todd José MD Primary Care Provider [phone] Encounter Details Date Type Department Care Team (Late st Contact Info) Description 12/20/2024 Abstract [facility] [address] [facility] [place] [phone] Dmitri Gold DO [address] [facility] [place] [address] Social History Tobacco Use Types Packs/Day Years [...] on filedocumented in this encounter Care Teams Packaging Mechanic Relationship Specialty Start Date End Date Todd José MD PCP - General Family Medicine 02/15/23 documented as of this encounter
--- OUTSIDE RECORDS SUMMARY | 2025-02-14 10:50 | XMS_ITS | Clinical Summary ---
Author Organization [facility] Address [address] [facility], [address] [place] [address] Care Team Providers Care Blister Rust Eradicator Name Role Phone Todd José MD Primary Care Provider [phone] Allergies No known active allergies Medications 07/02 1-20 MG-MCG per tablet TAKE 1 TABLET BY MOUTH EVERY DAY 28 tablet 03/20/2021 Active Active Problems Problem Noted Date Diagnosed Date Pelvic pain Right ovarian cyst Social History Tobacco Use Types Packs/Day Years Used Date Smoking Tobacco: Never Smokeless Tobacco: Never Alcohol Use Standard Drinks/Week Comments Never 0 (1 standard drink = 0.6 oz pur e alcohol) AUDIT-C Answer Date Recorded Q1: How often do you have a drink containing alc ohol? Never 10/10/2020 Average Number of Drinks Not on file 021 Frequency of Binge Drinking Not on file 09/13 PHQ-2 Answer Date Recorded PHQ-9 Total Score 0 11/04/2020 Comments No Sex and Gender Information Value Date Recorded Sex Assigned at Not on file Legal Sex Female 12:57 PM EDT Gender Identity Not on file Sexual Orientation Not on file Last Filed Vital Signs Vital Sign Reading Time Taken Comments Blood Pressure 116/72 11/04/2020 2:13 PM EDT Pulse 92 10/10/2020 9:15 PM EDT Temperature 37.1 C (98.7 F) 10/10/2020 7:12 PM EDT Respiratory Rate 16 10/10/2020 9:15 PM EDT Oxygen Saturation 96% 10/10/2020 9:15 PM EDT Inhaled Oxygen Concentration - - Weight 53.1 kg (117 lb) 11/04/2020 2:13 PM EDT Height 165.1 cm (5' 5 ) 11/04/2020 2:13 PM EDT Body Mass Index 19.47 11/04/2020 2:13 PM EDT Plan of Treatment Not on file Insurance [employer] Care Teams Blister Rust Eradicator Relationship Specialty Start Date End Date Todd José MD [address] [place] [phone] PCP - General Family Medicine 10/10/20
--- OUTSIDE RECORDS SUMMARY | 2025-02-14 10:50 | XMS_ITS | Encounter Summary ---
Author Organization [facility] Address [address] [facility] [place] [address] Care Team Providers Care Electrical Appliance Servicer Name Role Phone Todd José MD Primary Care Provider [phone] Encounter Details Date Type Department Care Team (Late st Contact Info) Description 10/15/2024 Abstract [facility] [address] [facility] [place] [address] Dmitri Gold DO [address] [facility] [place] [address] Social History Tobacco Use Types Packs/Day Years [...] on filedocumented in this encounter Care Teams Electrical Appliance Servicer Relationship Specialty Start Date End Date Todd José MD PCP - General Family Medicine 02/15/23 documented as of this encounter
--- OUTSIDE RECORDS SUMMARY | 2025-02-14 10:50 | XMS_ITS | Encounter Summary ---
Author Organization [facility] Address [address] [place] [address] Care Team Providers Care Campus Recruiting Coordinator Name Role Phone Tdod José MD Primary Care Provider [phone], Hvi Card Consult Unavailable Unavailable Isela Robert DO Unavailable Source Comments In the event this information is protected by the Federal Confidentiality of Alcohol and Drug AbusePatient Records regulations: The Federal rules restrict any use of the information to criminally investigate or prosecute any alcohol or drug abuse patient.[facility] Encounter Details Date Type Department Care Team (Late st Contact Info) Description 06/14/2019 Patient Msg Cardiology [address] [place] [phone] Provider, Ccf Appointment Reminder Social History Tobacco Use Types Packs/Day Years [...] on filedocumented in this encounter Care Teams Campus Recruiting Coordinator Relationship Specialty Start Date End Date Todd José MD PCP - General Family Medicine 04/27/19 A, Hvi Card Consult [address] [place] [address] Consulting Cardiology 05/12/19 Robert Weiss DO [address] [place] [address] Primary Staff Physician Cardiology 11/27/19 Claudia @ [facility]. Community Resource 05/17/19 documented as of this encounter
--- OUTSIDE RECORDS SUMMARY | 2025-02-14 10:50 | XMS_ITS | Encounter Summary ---
Author Organization [facility] Address [address] [place] [address] Care Team Providers Care Recordist Name Role Phone Todd José MD Primary Care Provider [phone], Hvi Card Consult Unavailable Unavailable Robert Weiss DO Unavailable Source Comments In the event this information is protected by the Federal Confidentiality of Alcohol and Drug AbusePatient Records regulations: The Federal rules restrict any use of the information to criminally investigate or prosecute any alcohol or drug abuse patient.[facility] Encounter Details Date Type Department Care Team (Late st Contact Info) Description 06/05/2019 Patient Msg Neurology [address] [id number] Trenton Brizuela DO [address] [place] [address] message Social History Tobacco Use Types Packs/Day Years [...] on filedocumented in this encounter Care Teams Recordist Relationship Specialty Start Date End Date Todd José MD PCP - General Family Medicine 04/27/19 A, Hvi Card Consult [address] [place] [address] Consulting Cardiology 05/12/19 Robert Weiss DO [address], [place] [id number] Primary Staff Physician Cardiology 11/27/19 [facility] @ [facility]. Community Resource 05/17/19 documented as of this encounter
--- NOTE | 2025-02-14 10:53 | US_ITS ---
The [address] [address] Patient Name: GONZALEZ SHANKAR MRN: [id number] date: 2000 Sex: F Assigned Patient Location: US Current Patient Location: US Accession/Order Number: [id number] Exam Date: 02/14/2025 11:00 Report Date: 02/14/2025 11:32 At the request of: NIKHIL FRANCIS DO Procedure: US pelvis transvaginal ULTRASOUND PELVIS TRANSVAGINAL COMPARISON: 10/12/[address] CLINICAL DATA: Cramping for the past few days. History of right oophorectomy and IUD. Real-time ultrasound evaluation pelvis was performed utilizing a transvaginal approach. Estimated uterine size is approximately 8.1 x 6.2 x 4.1 cm. No focal myometrial abnormalities are identified. The endometrial lining is estimated at 7 mm. The IUD is visualized in appropriate position. The right ovary is surgically absent. The left ovary measures 3.7 x 2.3 x 2.4 cm. There are follicles measuring up to 11 mm in size. No dominant adnexal cysts are seen. There is documentation of ovarian blood flow with resistive index of 0.6. No free fluid is identified. US/US pelvis transvaginal IMPRESSION: APPROPRIATE POSITION OF IUD. NO DOMINANT ADNEXAL CYSTS OR OTHER ACUTE FINDINGS. Impression dictated by: Edita Jarvis M.D. 02/14/2025 11:32 AM Dictation Location: [place] [address] Electronically authenticated by: [id number] Y Date: 02/14/2025 11:32
--- OUTSIDE RECORDS SUMMARY | 2025-02-14 10:56 | XMS_ITS | CCD ---
Author Organization [facility] Care Team Providers Care Sales Account Associate Name Role Phone Todd Dinero MD Primary Care Provider [phone] ESTUARDO CARTER Attending Unavailable TODD DINERO Primary Care Unavailable ROSETTE ., DR [...] HOY ., DR CARRASCO Primary Care Unavailable EL MIRAGE, DR KRISTEN Bonilla Consulting Unavailable ASIF ., [...] e SANDRA, DR GREYSON Joy Consulting Unavailabl jonah HOFFMANN, DR KRISTEN Bonilla Consulting Unavailable ASIF ., DR TEJEDA Admitting Unavailable ASIF ., DR TEJEDA Attending Unavailable HOY ., DR CARRASCO Primary Care Unavailable ASIF ., DR TEJEDA Consulting Unavailable ASIF ., DR TEJEDA Admitting Unavailable ASIF ., DR TEJEDA Attending Unavailable ROSETTE ., DR CARRASCO Primary Care Unavailable ASIF ., DR TEJEDA Consulting Unavailable CAN PEÑA Consulting Unavailable LEÓN QUINTANA Consulting Unavailable MD Todd Dinero Primary Care Provider [phone] MD Karson Manzanares Emergency Provider [phone] DO Major Garces Jr Attending Provider [phone] Todd Dinero MD Primary Care Provider [phone] DOLCE, ZAID R Attending Unavailable ASIF, DMITRI Attending Unavailable ASIF, DMITRI Attending Unavailable DOLCE, ZAID R Attending Unavailable DOLCE, ZAID R Attending Unavailable ASIF, DMITRI Attending Unavailable URIEL GERMAN Attending Unavailable ASIF, DMITRI Attending Unavailable ASIF, DMITRI Attending Unavailable Edna Monaco MD Attending Provider VINH TOVAR Attending Unavailable Radatz Jr, Edward Attending Unavailable Dakotah Dinerolas M Primary Care Unavailable Radatz , Edward Admitting Unavailable Karson Manzanares Admitting Unavailable Karson Manzanares Attending Unavailable Rosette Todd M Primary Care Unavailable Carlos Enrique Edna Travis Admitting Unavailable Carlos Enrique Edna Travis Attending Unavailable Radatz Jr, Edward Attending Unavailable Homaren, Todd M Primary Care Unavailable Radatz Jr, Edward Admitting Unavailable Radatz Jr, Edward Attending Unavailable Radatz Jr, Edward Admitting Unavailable Hoy, Todd M Primary Care Unavailable Radatz Jr, Edward Attending Unavailable Radatz Jr, Edward Admitting Unavailable Hoy, Todd M Primary Care Unavailable Radatz Jr, Edward Attending Unavailable Radatz Jr, Edward Admitting Unavailable Hoy, Todd M Primary Care Unavailable Allergies Allergy Classification Reported Allergen(s) Allergy Type Date of Onset Reaction(s) Facility (1 source) Penicillin Drug Allergy [facility] Repository (17 sources) Amoxicillin Drug Allergy 3 Unknown [facility] (17 sources) cefdinir Drug Allergy 3 Unknown [facility] (20 sources) Penicillin G Drug Allergy 3 Swelling, Unknown [facility] (6 sources) Other Propensity to adverse reactions 5 [facility] Work Phone: (2 sources) Penicillins; Translations: [penicillins] Propensity to adverse reactions (disorder) 4 [facility] Repository Medications Current Medications Medication Drug [...] pain 12 tablet 0 10/10/2020 10/13/2020 Active betamethasone 0.5 mg/ml / clotrimazole 10 mg/ml topical cream (3 sources) Azole Antifungal, Corticosteroid Start: 08-24-2024 clotrimazole-betam ethasone (Lotrisone) cream Indications: Other infective chronic otitis externa of left ear Apply to left ear twice daily for 10 days 15 g 08/24/2024 Active calcium chloride 0.0014 meq/ml / potassium chloride 0.004 meq/ml / sodium chloride 0.103 meq/ml / sodium lactate 0.028 meq/ml injectable solution (1 source) Start: 10-10-2020 lactated ringers infusion Ethinyl Estradiol / Ferrous fumarate / Norethindrone (3 sources) Estrogen Start: 06-28-2024 End: 07-26-2024 take 1 tablet by mouth once daily, then take 1 tablet by mouth once daily norethindrone-ethi nyl estradiol (07/02) 1-20 MG-MCG tablet Indications: Encounter for surveillance of other contraceptive Take 1 tablet by mouth Daily for 28 days Take 1 tablet by mouth daily 28 tablet 11 06/28/2024 07/26/2024 Active 2 ml fentaNYL 0.05 mg/ml injection (4 sources) Opioid Agonist Start: 10-10-2020 fentaNYL (SUBLIMAZE) injection 50 mcg Start: 10-10-2020 fentaNYL (SUBL IMAZE) injection 25 mcg levonorgestrel 0.765712 mg/hr intrauterine system (19 sources) Progestin, Progestin-containing Intrauterine Device Start: 08-27-2024 End: 08-26-2029 Levonorgestrel intrauterine device 52 mg End: 06-28-2024 levonorgestrel (Celine) 13.5 MG IUD as directed Intrauterine 06/28/2024 Discontinued (Other) meloxicam 15 mg oral tablet (6 sources) [...] Drug Class(es) Dates Sig (Normalized) Sig (Original) [id number] 200 actuat albuterol 0.09 mg/actuat metered dose [...] for Pain 12 tablet 0 10/10/2020 Active metroNIDAZOLE 500 mg oral tablet (3 sources) [...] Problem Date Documented Date Episodic/Chronic Abdominal pain (20 sources) Flank pain; Translations: [Unspecified abdominal pain] Onset: 06-11-2022 Episodic Cardiac dysrhythmias (3 sources) Postural orthostatic tachycardia syndrome ; Translations: [Postural orthostatic tachycardia syndrome] Onset: 03-22-2019 08-22-2024 Chronic Contraceptive and procreative management (8 sources) Presence of (intrauterine) contraceptive device; Translations: [...] ankle] 04-03-2024 Episodic Other female genital disorders (8 sources) Vaginal discharge; Translations: [Other specified noninflammatory disorders of vagina] Onset: 06-28-2024 06-28-2024 Episodic Other female genital disorders (8 sources) History of gynecological disorder; Translations: [Personal history of other diseases of the female genital tract] Onset: 06-28-2024 06-28-2024 Episodic Other infections; including parasitic (3 sources) Sequelae of infectious disease; Translations: [Sequelae of unspecified infectious and parasitic disease] Onset: 03-22-2019 08-22-2024 Chronic Other nervous system disorders (1 source) Postoperative pain ; Translations: [Other acute postprocedural pain] Episodic Other non-traumatic joint disorders (4 sources) Instability of joint of left ankle; Translations: [Other instability, left ankle] 04-03-2024 Episodic Other upper respiratory infections (3 sources) Chronic sinusitis; Translations: [Chronic sinusitis, unspecified] Onset: 03-22-2019 08-22-2024 Chronic Ovarian cyst (13 sources) Cyst of right ovary; Translations: [Unspecified ovarian cyst, right side] Onset: 06-16-2022 Episodic Superficial injury; contusion (2 sources) Contusion of left foot; Translations: [Contusion of left foot, initial encounter] 04-03-2024 Episodic Tuberculosis (3 sources) Tuberculosis of vertebral column; Translations: [Tuberculosis of spine] Onset: 08-22-2024 08-22-2024 Episodic Unclassified (3 sources) CONTACT W/AND (SUSP) EXPOS COVID-19; Translations: [CONTACT W/AND (SUSP) EXPOS COVID-19] Onset: 01-20-2022 Viral infection (1 source) COVID-19; Translations: [COVID-19] Onset: 01-20-2022 Past or Other Problems Problem Classification Problem Date Documented Da te Episodic/Chronic Epilepsy; convulsions (3 sources) Neurological finding; Translations: [Unspecified convulsions] Onset: 05-12-2019 08-22-2024 Episodic Nonspecific chest pain (3 sources) Chest pain; Translations: [Other chest pain] Onset: 05-13-2019 08-22-2024 Episodic Other connective tissue disease (1 source) Pain in left foot; Translations: [Pain in left foot] Onset: 12-30-2023 Episodic Other screening for suspected conditions (not mental disorders or infectious disease) (7 sources) Encounter for screening for malignant neoplasm of cervix; Translations: [Raised cardiac enzyme or marker] Onset: 05-13-2019 Episodic Other upper respiratory infections (1 source) Acute sinusitis, unspecified; Translations: [ACUTE SINUSITIS UNSPECIFIED] Onset: 01-20-2022 Episodic Sprains and strains (9 sources) Sprain of left foot; Translations: [Unspecified sprain of left foot, initial encounter] Onset: 01-09-2024 12-30-2023 Episodic Syncope (3 sources) Syncope; Translations: [Syncope and collapse] Onset: 03-16-2019 08-22-2024 Episodic Unclassified (1 source) CONTACT W/AND (SUSP) EXPOS COVID-19; Translations: [CONTACT W/AND (SUSP) EXPOS COVID-19] Onset: 01-18-2022 Results Test Name Value Interpretation Reference Range Facility Ambulatory Visit Summaryon 0 10-19-2024 Ambulatory Visit Summary Ambulatory Visit Summary FADIA LAN Poli :2000 Visit Date:10/16/2024 Ambulatory Visit Instructions Your Care Team Primary Care Physician - Todd Dinero MD Allergies penicillins (Hives) Problems Ongoing - Any problem that you are currently receiving treatment for. LLQ pain Patient Survey You may receive a survey via text or e-mail asking about your office visit. Please share your experience with us by completing your survey. We appreciate your feedback and thank you for choosing us for your care. [facility] Reminderson 10-19-2024 Reminders Reminders - From: Myra Manzanares To: EU - Administrative; Sent: 10/19/2024 10:00:44 EDT Show up: 06/21/2025 09:00:00 EST Subject: 1 yr f/u w/ KUB KEVIN Due Date/Time: 10/19/2025 10:00:00 EDT Reminder/Recall Pt seen on 10/19/2024 w/ EDGARDO in [place]. Pt needs a follow up for 1 yr with KUB and KEVIN. Pt might be at college at the time this visit is due. Per EDGARDO, pt can be scheduled for when she gets back from College for a break or even for summer. Normal [facility] Urology Office/Clinic Noteon 10-19-2024 Urology Office/Clinic Note Urology Office/Clinic Note Chief Complaint [facility] f/u HPI Staff 24 yr old female here for ER f/u [facility] 10/12/24 for LLQ/flank pain. US and CT done. Was started on Macrobid for possible UTI, however Cx negative. UA today completely negative. Pt is still having pain on left side, sharp pain comes and goes. Review of Systems PHQ Score Initial Depression Screen Score: 0 SCORE No fever, chills, malaise, myalgia. No nausea, vomiting. No dysuria, blood in urine. No change in urgency/frequency, straining, stream changes. No discharge, odor, or change in color of urine. Physical Exam Vitals & Measurements T: 36.5 ???C(Oral) HR: 72(Peripheral) RR: 18 BP: 106/60 HT: 65 in HT: 166 cm WT: 127.868 lb WT: 58 kg BMI: 21.05 General: nontoxic, NAD Mouth: moist mucosa Lungs: normal respiratory effort Cardio: regular rate, good distal perfusion Abdomen: nondistended Neurologic: Grossly normal Skin: No rashes or suspicious lesions Assessment/Plan 1. Kidney stones (N20.0: Calculus of kidney) 2mm R and 3mm L nonobstructing renal stones without hydro and without ureteral stones. Advised I do not think her pain (see #2) is related to her stones as they are small and not obstructing. She is on high sodium diet d/t POTS so I did reiterate importance of drinking enough fluids to prevent current stones from getting bigger and formation of new stones. Goal 2.5-3L urine output daily. Pt will work on this. Already avoids caffeine, dark soda, and coffee. Drinks mostly Gatorade, Sprite, and water. F/u 1 yr w KUB/KEVIN prior. Ordered: E&M of New Patient Moderate 45-59 Min 18550 Urnls Dip Stick Auto w/o Microscopy POC [id number] 2. LLQ pain (R10.32: Left lower quadrant pain) Do not think this is related. CT shows constipation. Discussed increasing fluids will help with this. Also discussed dietary recommendations/stoo l softener etc. US shows ovarian cyst and pelvic congestion syndrome. Advised these are more likely causing her pain. Recommend she see MEDICAL REIMBURSEMENT SPECIALIST. Ordered: E&M of New Patient Moderate 45-59 Min [id number] Follow-up With When Contact Information GUY REY, VINH Mckenzie, URL In 1 year [address] [place] [address] Additional Instructions: Patient Education Constipation, Adult Kidney Stones, [id number] Problem List/Past Medical History Ongoing Absence epilepsy LLQ pain POTS (postural orthostatic tachycardia syndrome) Historical No qualifying data Medications No active medications Allergies penicillins (Hives) Social History Alcohol Never., 10/19/2024 Substance Abuse Never., 10/19/2024 Tobacco Never (less than 100 in lifetime), never smoked in my entire life Tobacco Use:. Never Smokeless Tobacco Use:., 10/19/2024 Lab Results Ambulatory Point of Care Results Bilirubin Urine Dipstick: Negative (10/19/24 09:31:00) Blood Urine Dipstick: Negative (10/19/24 09:31:00) Glucose Urine Dipstick: Negative (10/19/24 09:31:00) Ketones Urine Dipstick: Negative (10/19/24 09:31:00) Nitrite Urine Dipstick: Negative (10/19/24 09:31:00) Protein Urine Dipstick: Negative (10/19/24 09:31:00) Specific [place] Urine Dipstick: 1.015 (10/19/24 09:31:00) Urine Appearance Urine Dipstick: Clear (10/19/24 09:31:00) Urine Color Urine Dipstick: Yellow (10/19/24 09:31:00) Urobilinogen Urine Dipstick: Normal 0.2-1 EU/dl (10/19/24 09:31:00) pH Urine Dipstick: 7.5 (10/19/24 09:31:00) Normal [facility] Comment on above: Result Comment: Elec tronically Signed By: GUY REY, VINH Gutierrez\Date and Time Signed: 10/19/24 12:00 EDT Urine Cultureon 10-12-2024 Bacteria identified Cx Nom (U) No Growth 2 Days PERFORMED BY: [facility] [address] [place] [address] PATHOLOGIST GATE TECHNICIAN EUDARDO LIRA M.D. Normal [facility] Comment on above: Performed By: #### C UU #### [address] RECURRENT VAGINITIS (HTRX)on 06-29-2024 ATOPOBIUM VAGINAE 0 [facility] ATOPOBIUM VAGINAE Not detected [facility] BVAB 2,3 (BACTERIAL VAGINOSIS ASSOCIATED BACTERIA 2, 3); MOBILUNCUS SPP 0 [facility] BVAB 2,3 (BACTERIAL VAGINOSIS ASSOCIATED BACTERIA 2, 3); MOBILUNCUS SPP Not detected [facility] LAURA ALBICANS, PARAPSILOSIS, TROPICALIS 0 [facility] LAURA ALBICANS, PARAPSILOSIS, TROPICALIS Not detected [facility] LAURA GLABRATA 0 [facility] LAURA GLABRATA Not detected [facility] LAURA KRUSEI 0 [facility] LAURA KRUSEI Not detected [facility] [...] 3V*on 024 XR foot LT min 3V* [facility] Main [place] [address] [place] [address] XRay Report Signed Patient: Fadia Lan MR#: [id number] : 2000 Acct:[id number] Age/Sex: 23 / F ADM Date: 12/30/23 Loc: ER Room: Type: [facility] ER Attending Dr: Copies to: Karson Manzanares MD Ordering Provider: Karson Manzanares MD Date of Service: 12/30/23 XR/XR foot LT min 3V*: Extremity Injury, Lower ([id number]) XR/XR ankle LT min 3V*: Extremity Injury, [...] Marc Owen M.D.12/30/2023 8:13 AM Dictation Location: [place] [address] Transcribed By: [facility] 12/30/23812 Dictated By: Marc Owen DO 12/30/23 0811 Signed By: 12/30/23 0813 Normal [facility] CHLAMYDIA , NISSERIA, VAGINA LIS NAAon 08-19-2022 Chlamydia by HALLEY Negative Normal Negative [facility] Comment on above: Performed By: #### C TVNGNA ####[facility] [id number] [place] [address]Dr. Swapna Severino Gonococcus by HALLEY Negative Normal Negative [facility] Comment on above: Performed By: #### C TVNGNA ####[facility] [id number] [place] [id number]. Swapna Severino Trich vag by HALLEY Negative Normal Negative [facility] Comment on above: Performed By: #### C TVNGNA ####[facility] [address] [place], [place] [address]KsDr. Swapna Severino CBC AUTO DIFFon 07-02-2022 BASO # 0.0 103/ul Normal 0.0-0.1 [facility] Comment on above: Performed By: #### C BC #### [facility] [address] [place] [address] Dr. Swapna Severino Basophils/100 WBC (Bld) 0.6 % Normal 0.2-2.0 [facility] Comment on above: Performed By: #### C BC #### [facility] [address] [place] [address] Dr. Swapna Severino EO # 0.4 103/ul Normal 0.0-0.7 [facility] Comment on above: Performed By: #### C BC #### [facility] [address] [place] [address] Dr. Swapna Severino Eosinophils/100 WBC (Bld) 6.3 % Normal 0.9-7.0 [facility] Comment on above: Performed By: #### C BC #### [facility] [address] [place] [address] [address] Swapna Severino Erythrocyte distribution width (RBC) [Ratio] 11.9 % Normal 11.0-15.0 [facility] Comment on above: Performed By: #### C BC #### [facility] [address] [place] [address] Dr. Swapna Severino Hematocrit (Bld) [Volume fraction] 39.8 % Normal 36.0-48.0 [facility] Comment on above: Performed By: #### C BC #### [facility] [address] [place] [address] Dr. Swapna Severino Hemoglobin (Bld) [Mass/Vol] 13.9 g/dL Normal 12.0-16.0 [facility] Comment on above: Performed By: #### C BC #### [facility] [address] [place] [address] Dr. Swapna Severino IG # 0.01 10e3/ul Normal 0.00-0.03 [facility] Comment on above: Performed By: #### C BC #### [facility] [address] [place] [address] Dr. Swapna Severino IG % 0.2 % Normal 0.0-0.5 [facility] Comment on above: Performed By: #### C BC #### [facility] [address] [place] [address] Dr. Swapna Severino LYMPH # 2.4 103/ul Normal 1.2-3.8 [facility] Comment on above: Performed By: #### C BC #### [facility] [address] [place] [address] Dr. Swapna Severino Lymphocytes/100 WBC (Bld) 37.4 % Normal 20.5-60.0 [facility] Comment on above: Performed By: #### C BC #### [facility] [address] [place] [address] Dr. Swapna Severino MANUAL DIFF REQ NO Normal [facility] Comment on above: Performed By: #### C BC #### [facility] [address] [place] [address] Dr. Swapna Severino MCH (RBC) [Entitic mass] 31.0 pg Normal 26.7-34.0 [facility] Comment on above: Performed By: #### C BC #### [facility] [address] [place] [address] Dr. Swapna Severino MCHC (RBC) [Mass/Vol] 34.9 g/dL Normal 29.9-35.2 [facility] Comment on above: Performed By: #### C BC #### [facility] [address] [place] [address] Dr. Swapna Severino MCV (RBC) [Entitic vol] 88.6 fL Normal 81.0-99.0 [facility] Comment on above: Performed By: #### C BC #### [facility] [address] [place] [address] [address] Swapna Severino MONO # 0.6 103/ul Normal 0.3-0.8 [facility] Comment on above: Performed By: #### C BC #### [facility] [address] [place] [address] Dr. Swapna Severino Monocytes/100 WBC (Bld) 8.5 % Normal 1.7-12.0 [facility] Comment on above: Performed By: #### C BC #### [facility] [address] [place] [address] Dr. Swapna Severino NEUT # 3.1 103/ul Normal 1.4-6.5 [facility] Comment on above: Performed By: #### C BC #### [facility] [address] [place] [address] Dr. Swapna Severino Neutrophils/100 WBC (Bld) 47.0 % Normal 43.0-75.0 [facility] Comment on above: Performed By: #### C BC #### [facility] [address] [place] [address] Dr. Swapna Severino Platelet mean volume (Bld) [Entitic vol] 8.5 fL Critically low 9.5-13.5 [facility] Comment on above: Performed By: #### C BC #### [facility] [address] [place] [address] Dr. Swapna Severino PLT 363 103/ul Normal 150-450 [facility] Comment on above: Performed By: #### C BC #### [facility] [address] [place] [address] Dr. Swapna Severino RBC 4.49 106/ul Normal 4.20-5.40 [facility] Comment on above: Performed By: #### C BC #### [facility] [address] [place] [address] Dr. Swapna Severino WBC 6.5 103/ul Normal 4.0-11.0 [facility] Comment on above: Performed By: #### C BC #### [facility] [address] [place], [place] [address] Dr. Swapna Severino CYTOLOGYon 07-02-2022 SENT TO REF LAB 07/02/2022 Normal [facility] Comment on above: Performed By: #### C YTO ####[facility] [address] [place], [place] [address]ZdDr. Swapna Severino PREG HCG QUALon 07-02-2022 , QUAL Negative Normal NEGATIVE [facility] Comment on above: Performed By: #### P REG #### [facility] [address] [place], [place] [address] Dr. Swapna Severino Covid-19 PCR (CVDTBH)on 06-13 SARS-CoV-2 (COVID-19) RNA HALLEY+probe Ql (Unsp spec) Not detected Normal NOT DETECTED [facility] Comment on above: Result Comment: This test is not yet approved or cleared by the [place] FDA. When there are no FDA-approved or cleared tests available, and other criteria are met, FDA can make tests available under an emergency access mechanism called an Emergency Use Authorization (EUA). The EUA for this test is supported by the [place] of Health and Human Service's (HHS's) declaration [...] SARS-CoV-2. Performed By: #### C VDTBH #### [facility] [address] [place], [place] [address] Dr. Swapna Severino US PELVIS AND TRANSVAGon [...] SULY ANDERSON Date: 2022-06-17 07:48 Normal [facility] CBC AUTO DIFFon 06-11-2022 BASO # 0.0 103/ul Normal 0.0-0.1 [facility] Comment on above: Performed By: #### C BC #### [facility] [address] [place] [address] Dr. Swapna Severino Basophils/100 WBC (Bld) 0.5 % Normal 0.2-2.0 [facility] Comment on above: Performed By: #### C BC #### [facility] [address] [place] [address] Dr. Swapna Severino EO # 0.4 103/ul Normal 0.0-0.7 [facility] Comment on above: Performed By: #### C BC #### [facility] [address] [place] [address] Dr. Swapna Severino Eosinophils/100 WBC (Bld) 6.8 % Normal 0.9-7.0 [facility] Comment on above: Performed By: #### C BC #### [facility] [address] [place] [address] Dr. Swapna Severino Erythrocyte distribution width (RBC) [Ratio] 11.9 % Normal 11.0-15.0 [facility] Comment on above: Performed By: #### C BC #### [facility] [address] [place] [address] Dr. Swapna Severino Hematocrit (Bld) [Volume fraction] 38.0 % Normal 36.0-48.0 [facility] Comment on above: Performed By: #### C BC #### [facility] [address] [place] [address] Dr. Swapna Severino Hemoglobin (Bld) [Mass/Vol] 13.2 g/dL Normal 12.0-16.0 [facility] Comment on above: Performed By: #### C BC #### [facility] [address] [place] [address] Dr. Swapna Severino IG # 0.01 10e3/ul Normal 0.00-0.03 [facility] Comment on above: Performed By: #### C BC #### [facility] [address] [place] [address] Dr. Swapna Severino IG % 0.2 % Normal 0.0-0.5 [facility] Comment on above: Performed By: #### C BC #### [facility] [address] [place] [address] Dr. Swapna Severino LYMPH # 1.7 103/ul Normal 1.2-3.8 [facility] Comment on above: Performed By: #### C BC #### [facility] [address] [place] [address] Dr. Swapna Severino Lymphocytes/100 WBC (Bld) 26.9 % Normal 20.5-60.0 [facility] Comment on above: Performed By: #### C BC #### [facility] [address] [place] [address] Dr. Swapna Severino MANUAL DIFF REQ NO Normal [facility] Comment on above: Performed By: #### C BC #### [facility] [address] [place] [address] Dr. Swapna Severino MCH (RBC) [Entitic mass] 31.4 pg Normal 26.7-34.0 [facility] Comment on above: Performed By: #### C BC #### [facility] [address] [place] [address] Dr. Swapna Severino MCHC (RBC) [Mass/Vol] 34.7 g/dL Normal 29.9-35.2 [facility] Comment on above: Performed By: #### C BC #### [facility] [address] [place] [address] Dr. Swapna Severino MCV (RBC) [Entitic vol] 90.3 fL Normal 81.0-99.0 [facility] Comment on above: Performed By: #### C BC #### [facility] [address] [place] [address] Dr. Swapna Severino MONO # 0.5 103/ul Normal 0.3-0.8 [facility] Comment on above: Performed By: #### C BC #### [facility] [address] [place] [address] Dr. Swapna Severino Monocytes/100 WBC (Bld) 7.9 % Normal 1.7-12.0 [facility] Comment on above: Performed By: #### C BC #### [facility] [address] [place] [address] Dr. Swapna Severino NEUT # 3.6 103/ul Normal 1.4-6.5 [facility] Comment on above: Performed By: #### C BC #### [facility] [address] [place] [address] Dr. Swapna Severino Neutrophils/100 WBC (Bld) 57.7 % Normal 43.0-75.0 [facility] Comment on above: Performed By: #### C BC #### [facility] [address] [place] [address] Dr. Swapna Severino Platelet mean volume (Bld) [Entitic vol] 8.6 fL Critically low 9.5-13.5 [facility] Comment on above: Performed By: #### C BC #### [facility] [address] [place] [address] Dr. Swapna Severino PLT 333 103/ul Normal 150-450 [facility] Comment on above: Performed By: #### C BC #### [facility] [address] [place] [address] Dr. Swapna Severino RBC 4.21 106/ul Normal 4.20-5.40 [facility] Comment on above: Performed By: #### C BC #### [facility] [address] [place] [address] Dr. Swapna Severino WBC 6.2 103/ul Normal 4.0-11.0 [facility] Comment on above: Performed By: #### C BC #### [facility] [address] [place] [address] Dr. Swapna Severino ER URINE PROFILEon 2 Bilirubin Ql (U) Negative Normal NEGATIVE [facility] Comment on above: Performed By: #### P REGU, ERUR #### [facility] [address] [place] [address] Dr. Swapna Severino Clarity (U) CLEAR Normal CLEAR [facility] Comment on above: Performed By: #### P REGU, ERUR #### [facility] [address] [place] [address] Dr. Swapna Severino Color (U) LT. YELLOW Normal YELLOW [facility] Comment on above: Performed By: #### P REGU, ERUR #### [facility] [address] [place] [address] Dr. Swapna LEDEZMA A micrscopic examination will be performed if indicated. Normal [facility] Comment on above: Performed By: #### P REGU, ERUR #### [facility] [address] [place] [address] Dr. Swapna Severnio Glucose Ql (U) Negative Normal NEGATIVE [facility] Comment on above: Performed By: #### P REGU, ERUR #### [facility] [address] [place] [address] Dr. Swapna Severino Hemoglobin Ql (U) Negative Normal NEGATIVE [facility] Comment on above: Performed By: #### P REGU, ERUR #### [facility] [address] [place] [address] Dr. Swapna Severino Ketones Ql (U) Negative Normal NEGATIVE [facility] Comment on above: Performed By: #### P REGU, ERUR #### [facility] [address] [place] [address] Dr. Swapna Severino LEUKOCYTES Negative Normal NEGATIVE [facility] Comment on above: Performed By: #### P REGU, ERUR #### [facility] [address] [place] [address] Dr. Swapna Severino Nitrite Ql (U) Negative Normal NEGATIVE [facility] Comment on above: Performed By: #### P REGU, ERUR #### [facility] [address] [address] [address] Swapna Severino pH (U) 6.5 [pH] Normal 5-9 [facility] Comment on above: Performed By: #### P REGU, ERUR #### [facility] [address] [place] [address] Dr. Swapna Severino SPEC GRAVITY 1.015 Normal 1.005-<=1.02 5 [facility] Comment on above: Performed By: #### P REGU, ERUR #### [facility] [address] [place] [address] Dr. Swapna Severino UA PROTEIN Negative Normal NEGATIVE/ TRACE [facility] Comment on above: Performed By: #### P REGU, ERUR #### [facility] [address] [address] [address] Swapna Severino UR MICRO IND NOT INDICATED Normal [facility] Comment on above: Performed By: #### P REGU, ERUR #### [facility] [address] [place] [address] Dr. Swapna Severino Urobilinogen Qn (U) 0.2 {Arpan'U}/dL Normal 0.2 - 1. 0 [facility] Comment on above: Performed By: #### P REGU, ERUR #### [facility] [address] [address] [address] Swapna Severino URon 06-11-2022 , QUAL Negative Normal NEGATIVE [facility] Comment on above: Performed By: #### P REGU, ERUR #### [facility] [address] [place] [address] Dr. Swapna Severino PROF CHEM 8 (BAS METB)on 12- 30-2022 Anion gap [Moles/Vol] 9.2 mmol/L Normal [facility] Comment on above: Performed By: #### B MP ####[facility] [address] [address]Dr. Swapna Severino Calcium [Mass/Vol] 8.7 mg/dL Normal 8.5-10.1 [facility] Comment on above: Performed By: #### B MP ####[facility] [address] [address]Dr. Blancaayala Maycol Chloride [Moles/Vol] 103 mmol/L Normal 98-107 [facility] Comment on above: Performed By: #### B MP ####[facility] [address] [place], [place] [address]Dr. Swapna Maycol CO2 [Moles/Vol] 31.1 mmol/L Normal 21.0-32.0 [facility] Comment on above: Performed By: #### B MP ####[facility] [address] [place], [place] [address]Dr. Blancaayala Maycol Creatinine [Mass/Vol] 0.55 mg/dL Normal 0.55-1.02 [facility] Comment on above: Performed By: #### B MP ####[facility] [address] [place], [place] [address]Dr. Swapna Maycol EGFR-AF URUGUAYAN >60 Normal >=60 [facility] Comment on above: Performed By: #### B MP ####[facility] [address] [place], [place] [address]Dr. Swapna Severino EGFR-NON AF URUGUAYAN >60 Normal >=60 [facility] Comment on above: Performed By: #### B MP ####[facility] [address] [place], [place] [address]Dr. Swapna Severino Glucose [Mass/Vol] 79 mg/dL Normal 74-106 [facility] Comment on above: Performed By: #### B MP ####[facility] [address] [place], [place] [address]Dr. Swapna Severino Potassium [Moles/Vol] 4.3 mmol/L Normal 3.5-5.1 [facility] Comment on above: Performed By: #### B MP ####[facility] [address] [place], [place] [address]Wx. Swapna Severino Sodium [Moles/Vol] 139 mmol/L Normal 136-145 [facility] Comment on above: Performed By: #### B MP ####[facility] [address] [place], [place] [address]Ix. Swapna Severino Urea nitrogen [Mass/Vol] 8.0 mg/dL Normal 7.0-18.0 [facility] Comment on above: Performed By: #### B MP ####[facility] [address] [place], [place] [address]Sl. Swapna Severino Urea nitrogen/Creatinine [Mass ratio] 14.5 mg/mg Normal [facility] Comment on above: Performed By: #### B MP ####[facility] [address] [place], [place] [address]Hs. Swapna Severino US PELVIS TRANSVAGon 022 US [...] KRISTEN HOFFMANN Date: 2022-06-11 12:44 Normal [facility] US PELVIS AND TRANSVAGon US [...] authenticated by: KRISTEN HOFFMANN Date: 2022-05-11 14:02 [facility] PAP ACOG PANEL 2: 21 to 29on 03-12-2022 . . Normal [facility] Comment on above: Performed By: #### [id number] #### [facility] [address] [place] [address] Dr. Swapna Severino Age Gdln ACOG Testing [facility] Comment on above: Performed By: #### 4 [id number] #### [facility] [address] [place] [address] Dr. Swapna Severino DIAGNOSIS: Comment [facility] Comment on above: Result Comment: NEGA TIVE FOR INTRAEPITHELIAL LESION OR MALIGNANCY. Performed By: #### 4 [id number] #### [facility] [address] [place] [address] Dr. Swapna Severino Methodology: Comment [facility] Comment on above: Result Comment: This liquid based ThinPrep(R) pap test was screened with the use of an image guided system. Performed By: #### 4 [id number] #### [facility] [address] [place] [address] Dr. Swapna Severino Note: Comment [facility] Comment on above: Result Comment: The Pap smear is a screening test designed to aid in the detection of premalignant and malignant conditions of the uterine cervix. It is not a diagnostic procedure and should not be used as the sole means of detecting cervical cancer. Both false-positive and false-negative reports do occur. . Performed By: #### 4 [id number] #### [facility] [address] [place] [address] Dr. Swapna Severino Performed by: Comment Normal [facility] Comment on above: Result Comment: Kathy Bland, Commercial Real Estate Manager (ASCP) Performed By: #### 4 [id number] #### [facility] [address] [place] [address] Dr. Swapna Severino Reflex Criteria: Comment Normal [facility] Comment on above: Result Comment: The HPV DNA reflex criteria were not met with this specimen result therefore, no HPV testing was performed. . Performed By: #### 4 [id number] #### [facility] [address] [place] [address] Dr. Swapna Severino Specimen adequacy: Comment Normal [facility] Comment on above: Result Comment: Sati sfactory for evaluation. Endocervical and/or squamous metaplastic cells (endocervical component) are present. Performed By: #### 4 [id number] #### [facility] [address] [place] [address] Dr. Swapna Severino Covid-19 PCR (CVDTBH)on SARS-CoV-2 (COVID-19) RNA HALLEY+probe Ql (Unsp spec) Detected Critically abnormal NOT DETECTED [facility] Comment on above: Result Comment: This test is not yet approved or cleared by the [place] FDA. When there are no FDA-approved or cleared tests available, and other criteria are met, FDA can make tests available under an emergency access mechanism called an Emergency Use Authorization (EUA). The EUA for this test is supported by the [employer] Engineer of Health and Human Service's (HHS's) declaration [...] longer be used). Performed By: #### C VDTBH #### [facility] [address] [place] [address] Dr. Swapna Severino CBC auto differentialOrdered By: Estuardo Carter on 10-10-2020 Absolute Eos # 0.19 [facility] Work Phone: Absolute Immature Granulocyte <0.03 [employer] Work Phone: Absolute Lymph # 1.98 [employer] Work Phone: Absolute Mora # 0.45 [employer] [facility] Work Phone: Basophils (Bld) [#/Vol] 0.03 10*3/uL [employer] Work Phone: Basophils/100 WBC (Bld) 1 % 0 - 2 % M [employer] Work Phone: Differential Type NOT REPORTED [employer] Work Phone: Eosinophils/100 WBC (Bld) 3 % 1 - 4 % [employer] Phone: Hematocrit (Bld) [Volume fraction] 40.1 % 36.3 - 47.1 % [employer] Phone: Hemoglobin.gastrointest inal spec 1 Ql (Stl) 13.8 g/dL 11.9 - 15.1 g/dL [employer] Work Phone: Immature granulocytes/100 WBC (Bld) 0 % 0 [employer] Work Phone: Interpretation and review of laboratory results Abnormal [employer] Phone: Lymphocytes/100 WBC (Bld) 32 % 25 - 45 % [employer] Work Phone: MCH (RBC) [Entitic mass] 31.4 pg 25.2 - 33.5 pg [employer] Work Phone: MCHC (RBC) [Mass/Vol] 34.4 g/dL 28.4 - 34.8 g/dL [employer] Phone: MCV (RBC) [Entitic vol] 91.1 fL 82.6 - 102.9 fL [employer] Phone: Monocytes/100 WBC (Bld) 7 % 2 - 8 % [employer] Work Phone: NRBC Automated 0.0 0.0 per 100 WBC [employer] Phone: Platelet distribution width (Bld) [Ratio] 11.4 % Low 11.8 - 14.4 % [employer] Phone: Platelet Estimate NOT REPORTED [employer] Phone: Platelet mean volume (Bld) [Entitic vol] 8.4 fL 8.1 - 13.5 fL [employer] Phone: Platelets (Bld) [#/Vol] 365 10*3/uL [employer] Phone: RBC (Bld) [#/Vol] 4.40 10*6/uL 3.95 - 5.1 1 m/uL [employer] Phone: RBC (Bld) [#/Vol] NOT REPORTED [employer] Phone: Segmented neutrophils/100 WBC (Bld) 57 % 34 - 64 % [employer] Phone: Segs Absolute 3.56 [employer] Work Phone: WBC (Bld) [#/Vol] 6.2 10*3/uL [employer] Phone: WBC (Bld) [#/Vol] NOT REPORTED [employer] Phone: CBC with Diffon 10-10-2020 Abs. Basophil 0.03 k/uL Normal 0.00-0.20 [facility] Comment on above: Performed By: #### S ED, CDP, CP, HCG #### [facility] [address] [place] [address] Silviculture Professor: Kristen Howe MD Abs.Imm.Granulocyte <0.03 Normal 0.00-0.30 [facility] Comment on above: Performed By: #### S ED, CDP, CP, HCG #### [facility] [address] [place], [facility] Silviculture Professor: Kristen Howe MD Abs.Neutrophil (Seg) 3.56 k/uL Normal 1.80-8.00 [facility] Comment on above: Performed By: #### S ED, CDP, CP, HCG #### [address] [place] [address] Silviculture Professor: Kristen Howe MD Basophils/100 WBC (Bld) 1 % Normal 0-2 [facility] Comment on above: Performed By: #### S ED, CDP, CP, HCG #### [address] [place] [address] Silviculture Professor: Kristen Howe MD Eosinophils (Bld) [#/Vol] 0.19 10*3/uL Normal 0.00-0.44 [facility] Comment on above: Performed By: #### S ED, CDP, CP, HCG #### [address] [place], [place] [address] Silviculture Professor: Kristen Howe MD Eosinophils/100 WBC (Bld) 3 % Normal 1-4 [facility] Comment on above: Performed By: #### S ED, CDP, CP, HCG #### [address] [place], [facility] Silviculture Professor: Kristen Howe MD Erythrocyte distribution width (RBC) [Ratio] 11.4 % Low 11.8-14.4 [facility] Comment on above: Performed By: #### S ED, CDP, CP, HCG #### [address] [place] [id number] Silviculture Professor: Kristen Howe MD Hematocrit (Bld) [Volume fraction] 40.1 % Normal 36.3-47.1 [facility] Comment on above: Performed By: #### S ED, CDP, CP, HCG #### [address] [place], [facility] Silviculture Professor: Kristen Howe MD Hemoglobin (Bld) [Mass/Vol] 13.8 g/dL Normal 11.9-15.1 [facility] Comment on above: Performed By: #### S ED, CDP, CP, HCG #### [facility] [address] [place] [address] Silviculture Professor: Kristen Howe MD Immature granulocytes/100 WBC (Bld) 0 % Normal 0 [facility] Comment on above: Performed By: #### S ED, CDP, CP, HCG #### [address] [place] [facility] Silviculture Professor: Kristen Howe MD Lymphocytes (Bld) [#/Vol] 1.98 10*3/uL Normal 1.20-5.20 [facility] Comment on above: Performed By: #### S ED, CDP, CP, HCG #### [address] [place], [facility] Silviculture Professor: Kristen Howe MD Lymphocytes/100 WBC (Bld) 32 % Normal 25-45 [facility] Comment on above: Performed By: #### S ED, CDP, CP, HCG #### [address] [place] [address] Silviculture Professor: Kristen Howe MD MCH (RBC) [Entitic mass] 31.4 pg Normal 25.2-33.5 [facility] Comment on above: Performed By: #### S ED, CDP, CP, HCG #### [address] [place], [place] [address] Silviculture Professor: Kristen Howe MD MCHC (RBC) [Mass/Vol] 34.4 g/dL Normal 28.4-34.8 [facility] Comment on above: Performed By: #### S ED, CDP, CP, HCG #### [address] [place] [facility]83 Silviculture Professor: Kristen Howe MD MCV (RBC) [Entitic vol] 91.1 fL Normal 82.6-102.9 [facility] Comment on above: Performed By: #### S ED, CDP, CP, HCG #### [facility] [address] [place], [place] [id number] Silviculture Professor: Kristen Howe MD Monocytes (Bld) [#/Vol] 0.45 10*3/uL Normal 0.10-1.40 [facility] Comment on above: Performed By: #### S ED, CDP, CP, HCG #### [address] [place] [address] Silviculture Professor: Kristen Howe MD Monocytes/100 WBC (Bld) 7 % Normal 2-8 [facility] Comment on above: Performed By: #### S ED, CDP, CP, HCG #### [address] [place], [facility]83 Silviculture Professor: Kristen Howe MD Neutrophil (Seg) 57 % Normal 34-64 [facility] Comment on above: Performed By: #### S ED, CDP, CP, HCG #### [address] [place], [place] [address] Silviculture Professor: Kristen Howe MD NRBC Automated 0.0 per 100 WBC Normal 0.0 [facility] Comment on above: Performed By: #### S ED, CDP, CP, HCG #### [facility] [address] [place] [address] [place] [address] Silviculture Professor: Kristen Howe MD Platelet mean volume (Bld) [Entitic vol] 8.4 fL Normal 8.1-13.5 [facility] Comment on above: Performed By: #### S ED, CDP, CP, HCG #### [facility] [address] [place] [address] Dr[address] [place], [place] [id number] Silviculture Professor: Kristen Howe MD Platelets (Bld) [#/Vol] 365 10*3/uL Normal 138-453 [facility] Comment on above: Performed By: #### S ED, CDP, CP, HCG #### [facility] [address] [place] [address] Silviculture Professor: Kristen Howe MD RBC (Bld) [#/Vol] 4.40 10*6/uL Normal 3.95-5.11 [facility] Comment on above: Performed By: #### S ED, CDP, CP, HCG #### [facility] [address] [place] [address] Silviculture Professor: Kristen Howe MD WBC (Bld) [#/Vol] 6.2 10*3/uL Normal 4.5-13.5 [facility] Comment on above: Performed By: #### S ED, CDP, CP, HCG #### [facility] [address] [place] [address] Silviculture Professor: Kristen Howe MD Auto Diff Performed NOT REPORTED Normal [facility] Comment on above: Performed By: #### S ED, CDP, CP, HCG #### [facility] [address] [place] [address] Silviculture Professor: Kristen Howe MD Platelet Estimate NOT REPORTED Normal [facility] Comment on above: Performed By: #### S ED, CDP, CP, HCG #### [facility] [address] [place] [address] Silviculture Professor: Kristen Howe MD RBC morphology finding Nom (Bld) NOT REPORTED Normal [facility] Comment on above: Performed By: #### S ED, CDP, CP, HCG #### [facility] [address] [place] [address] Silviculture Professor: Kristen Howe MD WBC Morphology NOT REPORTED Normal [facility] Comment on above: Performed By: #### S ED, CDP, CP, HCG #### [facility] [address] [place] [address] Silviculture Professor: Kristen Howe MD CT ABDOMEN PELVIS W [...] Charles Virgen MD 10/10/20 Final result Normal [facility] CT ABDOMEN PELVIS W IV CONTR AST Additional Contrast? 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 This results in compressive affects on the right ureter and mild hydronephrosis. Follow-up with gynecology is recommended due to the large size of this mass and associated compressive affects. [employer] Phone: EXAMINATION: CT OF THE ABDOMEN AND [...] No lymphadenopathy. Bones/Soft Tissues: No abnormality identified. [employer] Phone: Eriberto, Mh[employer] Incoming Radiant Results From [employer] - 10/10/2020 3:13 PM EDT EXAMINATION: CT [...] of this mass and associated compressive affects. [facility] Work Phone: Comp Metabolic Profon 2020 (cont.) Normal [facility] Comment on above: Result Comment: Aver age GFR for 20-29 years old: 116 mL/min/1.73sq m Chronic Kidney Disease: <60 mL/min/1.73sq m Kidney failure: <15 mL/min/1.73sq m eGFR calculated using average adult body mass. Additional eGFR calculator available at: http://www.Zopa.Ventiva/multiple_crcl_2012.htm Performed By: #### S ED, CDP, CP, HCG #### [facility] [address] [place] [address] Dr[address] [place], [place] [address] Silviculture Professor: Kristen Howe MD Albumin [Mass/Vol] 4.5 g/dL Normal 3.5-5.2 [facility] Comment on above: Performed By: #### S ED, CDP, CP, HCG #### [facility] [address] [place] [address] Dr[address] [place], [place] [id number] Silviculture Professor: Kristen Howe MD Albumin/Glob Ratio 2.0 Normal 1.0-2.5 [facility] Comment on above: Performed By: #### S ED, CDP, CP, HCG #### [facility] [address] [place] [address] Dr[address] [place], [place] 14[address] Silviculture Professor: Kristen Howe MD Alkaline Phos 62 U/L Normal 35-104 [facility] Comment on above: Performed By: #### S ED, CDP, CP, HCG #### [facility] [address] [place] [address] Dr[address] [place], [place] [id number] Silviculture Professor: Kristen Howe MD ALT [Catalytic activity/Vol] 9 U/L Normal 5-33 [facility] Comment on above: Performed By: #### S ED, CDP, CP, HCG #### [facility] [address] [place] [address] Dr. [place], [place] [id number] Silviculture Professor: Kristen Howe MD Anion gap [Moles/Vol] 7 mmol/L Low 9-17 [facility] Comment on above: Performed By: #### S ED, CDP, CP, HCG #### [facility] [address] [place] [address] Dr[address] [place], [place] [address] Silviculture Professor: Kristen Howe MD AST [Catalytic activity/Vol] 16 U/L Normal <32 [facility] Comment on above: Performed By: #### S ED, CDP, CP, HCG #### [facility] [address] [place], [place] [address] Silviculture Professor: Kristen Howe MD Bilirubin [Mass/Vol] 0.52 mg/dL Normal 0.3-1.2 [facility] Comment on above: Performed By: #### S ED, CDP, CP, HCG #### [facility] [address] [place], [place] [address] Silviculture Professor: Kristen Howe MD BUN/CRE Ratio 13 Normal 9-20 [facility] Comment on above: Performed By: #### S ED, CDP, CP, HCG #### [facility] [address] [place], [place] [address] Silviculture Professor: Kristen Howe MD Calcium [Mass/Vol] 9.8 mg/dL Normal 8.6-10.4 [facility] Comment on above: Performed By: #### S ED, CDP, CP, HCG #### [address] [place], [place] [address] Silviculture Professor: Kristen Howe MD Chloride [Moles/Vol] 102 mmol/L Normal 98-107 [facility] Comment on above: Performed By: #### S ED, CDP, CP, HCG #### [address] [place], [place] [address]83 Silviculture Professor: Kristen Howe MD CO2 [Moles/Vol] 31 mmol/L Normal 20-31 [facility] Comment on above: Performed By: #### S ED, CDP, CP, HCG #### [facility] [address] [place] [address] Dr. [place], [place] [id number] Silviculture Professor: Kristen Howe MD Creatinine [Mass/Vol] 0.64 mg/dL Normal 0.50-0.90 [facility] Comment on above: Performed By: #### S ED, CDP, CP, HCG #### [facility] [address] [place], [place] [address] Silviculture Professor: Kristen Howe MD GFR, Amer >60 Normal >60 [facility] Comment on above: Performed By: #### S ED, CDP, CP, HCG #### [facility] [address] [place], [place] [id number] Silviculture Professor: Kristen Howe MD GFR,non Amer >60 Normal >60 [facility] Comment on above: Performed By: #### S ED, CDP, CP, HCG #### [facility] [address] [place], [place] [id number] Silviculture Professor: Kristen Howe MD Glucose [Mass/Vol] 94 mg/dL Normal 70-99 [facility] Comment on above: Performed By: #### S ED, CDP, CP, HCG #### [address] [place], [place] [id number] Silviculture Professor: Kristen Howe MD Potassium [Moles/Vol] 3.5 mmol/L Low 3.7-5.3 [facility] Comment on above: Performed By: #### S ED, CDP, CP, HCG #### [facility] [address] [place] [address] [address] [place], [place] [id number] Silviculture Professor: Kristen Howe MD Protein [Mass/Vol] 6.8 g/dL Normal 6.4-8.3 [facility] Comment on above: Performed By: #### S ED, CDP, CP, HCG #### [address] [place], [place] [id number] Silviculture Professor: Kristen Howe MD Sodium [Moles/Vol] 140 mmol/L Normal 135-144 [facility] Comment on above: Performed By: #### S ED, CDP, CP, HCG #### [facility] [address] [place] [address] [address] [place], [place] [id number] Silviculture Professor: Kristen Howe MD Staging: Normal [facility] Comment on above: Result Comment: Stag e 1: Some kidney damage normal GFR Stage 2: Mild kidney damage GFR 60-89 Stage 3: Moderate kidney damage GFR 30-59 Stage 4: Severe kidney damage GFR 15-29 Stage 5: Severe kidney damage GFR <15 ESRD - chronic treatment by dialysis or transplant Performed By: #### S ED, CDP, CP, HCG #### [facility] [address] [place] [address] Silviculture Professor: Kristen Howe MD Urea nitrogen [Mass/Vol] 8 mg/dL Normal 6-20 [facility] Comment on above: Performed By: #### S ED, CDP, CP, HCG #### [facility] [address] [place] [address] Silviculture Professor: Kristen Howe MD Comprehensive Metabolic Pane lOrdered By: Estuardo Carter on 10-10-2020 Albumin [Mass/Vol] 4.5 g/dL 3.5 - 5.2 g/dL [facility] Phone: Albumin/Globulin [Mass ratio] 2.0 {ratio} [facility] Phone: ALP (Bld) [Catalytic activity/Vol] 62 U/L 35 - 104 U/L [facility] Phone: ALT [Catalytic activity/Vol] 9 U/L 5 - 33 U/L [facility] Phone: Anion gap [Moles/Vol] 7 mmol/L Low 9 - 17 mmol/L [facility] Phone: AST [Catalytic activity/Vol] 16 U/L <32 [facility] [employer] Phone: Bilirubin [Mass/Vol] 0.52 mg/dL 0.3 - 1 .2 mg/dL [facility] Phone: Calcium [Mass/Vol] 9.8 mg/dL 8.6 - 10. 4 mg/dL [facility] Phone: Chloride [Moles/Vol] 102 mmol/L 98 - 10 7 mmol/L [facility] Phone: CO2 [Moles/Vol] 31 mmol/L 20 - 31 mmol/L [facility] Phone: Creatinine [Mass/Vol] 0.64 mg/dL 0.50 - 0.90 mg/dL [employer] Phone: Free PSA/Total PSA [Mass fraction] 6.8 g/dL 6.4 - 8.3 g/dL [employer] Phone: GFR >60 >60 mL/min [employer] Phone: GFR Non- >60 >60 mL/min [employer] Phone: Glucose [Mass/Vol] 94 mg/dL 70 - 99 mg/dL [employer] Phone: Interpretation and review of laboratory results Abnormal [employer] Phone: Potassium [Moles/Vol] 3.5 mmol/L Low 3.7 - 5.3 mmol/L [employer] Phone: Sodium [Moles/Vol] 140 mmol/L 135 - 144 mmol/L [employer] Phone: Urea nitrogen (BldV) [Mass/Vol] 8 mg/dL 6 - 20 mg/dL [employer] Phone: Urea nitrogen/Creatinine (Bld) [Mass ratio] 13 [employer] Phone: HCG Qualitative, SerumOrdere d By: Estuardo Carter on 10-10-2020 hCG Qual Negative NEGATIVE [employer] Phone: Comment on above: Specimens with hCG l evels near the threshold of the test (25 mIU/mL) may give a negative or indeterminate result. In such cases, another test should be performed with a new specimen in 48-72 hours. If early is suspected clinically in this setting, correlation with quantitative serum b-hCG level is suggested. [employer] has confirmed the use of plasma for this test. This has not been cleared or approved by the U.S. Food and Drug Administration. The FDA has determined that such clearance is not necessary. HCG Screen, Bloodon 10-11-19 21 HCG Screen, Blood Negative Normal NEG [facility] Comment on above: Result Comment: Spec imens with hCG levels near the threshold of the test (25 mIU/mL) may give a negative or indeterminate result. In such cases, another test should be performed with a new specimen in 48-72 hours. If early is suspected clinically in this setting, correlation with quantitative serum b-hCG level is suggested. [facility] has confirmed the use of plasma for this test. This has not been cleared or approved by the U.S. Food and Drug Administration. The FDA has determined that such clearance is not necessary. Performed By: #### S ED, CDP, CP, HCG #### [facility] [address] [place] [address] Silviculture Professor: Kristen Howe MD Laboratory - Chemistry and C hemistry - challengeOrdered By: Estuardo Carter on 10-10-2020 GFR/1.73 sq M.predicted MDRD (S/P/Bld) [Vol rate/Area] [facility] Work Phone: Comment on above: Average GFR for 20-2 9 years old: 116 mL/min/1.73sq m Chronic Kidney Disease: <60 mL/min/1.73sq m Kidney failure: <15 mL/min/1.73sq m eGFR calculated using average adult body mass. Additional eGFR calculator available at: http://www.Zopa.Ventiva/multiple_crcl_2012.htm Stage 1: Some kidney damage normal GFR Stage 2: Mild kidney damage GFR 60-89 Stage 3: Moderate kidney damage GFR 30-59 Stage 4: Severe kidney damage GFR 15-29 Stage 5: Severe kidney damage GFR <15 ESRD - chronic treatment by dialysis or transplant Microscopic UrinalysisOrdere d By: Estuardo Carter on 10-10-2020 - [facility] Work Phone: Amorphous, UA NOT REPORTED None [facility] Work Phone: Bacteria, UA NOT REPORTED None [facility] Work Phone: Casts UA NOT REPORTED /LPF [facility] Work Phone: Crystals, UA NOT REPORTED None /HPF [facility] Work Phone: Epithelial Cells UA 0 TO 2 [facility] [employer] Work Phone: Mucus, UA NOT REPORTED None [facility] Work Phone: Other Observations UA NOT REPORTED NOT REQ. [facility] Work Phone: RBC, UA 20 TO 50 [facility] [employer] Work Phone: Renal Epithelial, UA NOT REPORTED 0 /HPF [facility] Work Phone: Trichomonas, UA NOT REPORTED None [facility] Work Phone: WBC, UA 0 TO 2 [facility] Work Phone: Yeast, UA NOT REPORTED None [facility] [employer] Work Phone: Sedimentation Rateon 021 Sedimentation Rate 3 mm Normal 0-20 [facility] Comment on above: Performed By: #### S ED, CDP, CP, HCG #### [facility] [address] [place] [address] Silviculture Professor: Kristen Howe MD Sedimentation RateOrdered By : Estuardo Carter on 10-10-2020 Sed Rate 3 mm 0 - 20 mm [facility] [employer] Work Phone: Surgical Pathologyon 021 Surgical Pathology [...] lining, is a 0.5 cm papillary focus. [employer] sections 4cs with papillary focus included in [...] SURGICAL PATHOLOGY CONSULTATION Patient Name: FADIA [facility] Rec: [id number] Path Number: [id number] [facility] CONSULTING PATHOLOGISTS [facility] [address] [place] [address]. [place], [place] [address] Normal [facility] Comment on above: Performed By: #### P PPVS #### [address] [address] Silviculture Professor: Ottoniel Hyde MD UA w/Reflex Cultureon 2020 Acetoacetic Acid,Ur Negative Normal NEG [facility] Comment on above: Performed By: #### U ALESHA UAX #### [facility] [address] [place] [address] [place] [address] Silviculture Professor: Kristen Howe MD Bilirubin, SemiQt,Ur Negative Normal NEG [facility] Comment on above: Performed By: #### U ALESHA, UAX #### [facility] [address] [place] [address] Silviculture Professor: Kristen Howe MD Color (U) YELLOW Normal YEL [facility] Comment on above: Performed By: #### U FANYO, UAX #### [facility] [address] [place] [address] [place] [address] Silviculture Professor: Kristen Howe MD Glucose Ql (U) Negative Normal NEG [facility] Comment on above: Performed By: #### U MICAO, UAX #### [facility] [address] [place] [address] Silviculture Professor: Kristen Howe MD Hemoglobin, Ur 3+ Abnormal NEG [facility] Comment on above: Performed By: #### U MICAO, UAX #### [facility] [address] [place] [address] [place] [address] Silviculture Professor: Kristen Howe MD Leukocyte esterase Test strip Ql (U) Negative Normal NEG [facility] Comment on above: Performed By: #### U MICAO, UAX #### [facility] [address] [place] [address] [address]. [place], [place] [phone] Silviculture Professor: Kristen Howe MD Nitrite,Ur Negative Normal NEG [facility] Comment on above: Performed By: #### U MICAO, UAX #### [facility] [address] [place] [address] [place] [address] Silviculture Professor: Kristen Howe MD PH,Ur 6.0 Normal 5.0-9.0 [facility] Comment on above: Performed By: #### U MICAO, UAX #### [facility] [address] [place] [address] Dr. [place], [place] [address] Silviculture Professor: Kristen Howe MD Protein Ql (U) TRACE Abnormal NEG [facility] Comment on above: Performed By: #### U MICAO, UAX #### [facility] [address] [place] [address] [place]. [place], [place] 1776583 Silviculture Professor: Kristen Howe MD Spec. [place],Ur 1.025 High 1.010-1.020 [facility] Comment on above: Performed By: #### U MICAO, UAX #### [facility] [address] [place] [address] [place]. [place] [phone] Silviculture Professor: Kristen Howe MD Turbidity CLEAR Normal CLEAR [facility] Comment on above: Performed By: #### U MICAO, UAX #### [facility] [address] [place], [place] [phone] Silviculture Professor: Kristen Howe MD Urobilinogen,Ur Normal Normal NORM [facility] Comment on above: Performed By: #### U MICAO, UAX #### [facility] [address] [place], [place] 3867083 Silviculture Professor: Kristen Howe MD Comment NOT REPORTED Normal [facility] Comment on above: Performed By: #### U MICAO, UAX #### [facility] [address] [place], [place] [phone] Silviculture Professor: Kristen Howe MD Urinalysis Reflex to Culture Ordered By: Estuardo Carter on 10-10-2020 Bilirubin Urine Negative NEGATIVE [facility] Work Phone: Color, UA YELLOW YELLOW [facility] Work Phone: Glucose, Ur Negative NEGATIVE [facility] Work Phone: Interpretation and review of laboratory results Abnormal [facility] Work Phone: Ketones Ql (U) Negative NEGATIVE [facility] Work Phone: Leukocyte esterase Test strip Ql (U) Negative NEGATIVE [facility] Work Phone: Nitrite, Urine Negative NEGATIVE [facility] Work Phone: pH, UA 6.0 [facility] Work Phone: Protein, UA TRACE Abnormal NEGATIVE [facility] Work Phone: Specific [place], UA 1.025 High [facility] [employer] Work Phone: Turbidity UA CLEAR CLEAR [facility] Work Phone: Urinalysis Comments NOT REPORTED [facility] [employer] Phone: Urine Hgb 3+ Abnormal NEGATIVE [facility] [employer] Phone: Urobilinogen, Urine Normal Normal [facility] [employer] Phone: Urinalysis,Microon 1 ----- Normal [facility] Comment on above: Performed By: #### U MICAO, UAX #### [facility] [address] [place], [place] 309[address]83 Silviculture Professor: Kristen Howe MD Epithelial cells LM Ql (Urine sed) 0 TO 2 Normal 0-25 [facility] Comment on above: Performed By: #### U MICAO, UAX #### [facility] [address] [place], [place] 870[address]83 Silviculture Professor: Kristen Howe MD Urine RBC's 20 TO 50 Normal 0-2 [facility] Comment on above: Performed By: #### U MICAO, UAX #### [facility] [address] [place], [place] 355[address]283 Silviculture Professor: Kristen Howe MD Urine WBC's 0 TO 2 Normal 0-5 [facility] Comment on above: Performed By: #### U MICAO, UAX #### [facility] [address] [place], [place] 267[address]83 Silviculture Professor: Kristen Howe MD Amorphous sediment LM Ql (Urine sed) NOT REPORTED Normal [facility] Comment on above: Performed By: #### U MICAO, UAX #### [facility] [address] [place], [place] 5[address]83 Silviculture Professor: Kristen Howe MD Bacteria NOT REPORTED Normal [facility] Comment on above: Performed By: #### U MICAO, UAX #### [facility] [address] [place], [place] 866[address]83 Silviculture Professor: Kristen Howe MD Casts NOT REPORTED Normal [facility] Comment on above: Performed By: #### U FANYO, UAX #### [facility] [address] [place] [address] Silviculture Professor: Kristen Howe MD Crystals LM Nom (Urine sed) NOT REPORTED Normal NONE [facility] Comment on above: Performed By: #### U MICAO, UAX #### [facility] [address] [place] [address] Silviculture Professor: Kristen Howe MD Epithelial, Renal NOT REPORTED Normal 0 [facility] Comment on above: Performed By: #### U MICAO, UAX #### [facility] [address] [place] [address] Silviculture Professor: Kristen Howe MD Mucus Strands NOT REPORTED Normal NONE [facility] Comment on above: Performed By: #### U FANYO, UAX #### [facility] [address] [place] [address] Silviculture Professor: Kristen Howe MD Other Observations NOT REPORTED Normal NREQ [facility] Comment on above: Performed By: #### U MICAO, UAX #### [facility] [address] [place] [address] Silviculture Professor: Kristen Howe MD Trichomonas NOT REPORTED Normal NONE [facility] Comment on above: Performed By: #### U MICAO, UAX #### [facility] [address] [place] [address] Silviculture Professor: Kristen Howe MD Yeast NOT REPORTED Normal NONE [facility] Comment on above: Performed By: #### U MICAO, UAX #### [facility] [address] [place], [place] 276[address]83 Silviculture Professor: Kristen Howe MD CNCOon 06-29-2019 CNCO Letter Text Normal [facility] CNOVon 06-29-2019 CNOV Office Visit (SYNCMN) FADIA LAN ([id number]) 1 F Date Time Provider Department 06/29/19 2:45 PM CELESTE WEISS SYNN During your visit today, we recorded the following information about you: Weight Height 53.3 kg 1.676 m Celeste Weiss Jr, DO, DO 07/06/2019 8:58 AM Signed [facility] [place] [facility] Department of Cardiovascular Medicine SECTION OF CARDIAC PACING and ELECTROPHYSIOLOGY OUTPATIENT VISIT DATE June 29, 2019 OUTPATIENT VISIT TYPE NEW PRIMARY CARE PHYSICIAN: Todd Dinero MD [address] [place], [place] [address] REFERRING PHYSICIAN: Todd Dinero MD [address] [place], [place] [id number] . NURSING INTAKE HISTORY: Fadia Lan is [...] extensive local evaluation including assessment at the [facility] electrophysiology autonomic laboratory by Dr. pierson, tilt table testing, multiple drug trials, but continues to have events. My findings, recommendations, and plan of care will be added to the electronic medical record and forwarded to the [facility] physicians by [employer] and to the patient and the local [...] the medical intensive care unit of the [facility]. She underwent extensive evaluation including repeat [...] reduction. 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 Love DIALYSIS RN states that there was a borderline increase [...] signs. EKG reveals normal sinus rhythm, normal VA and QRS intervals, no evidence of long [...] suggestions. This note was partially generated using [employer] voice recognition system, and there may be some incorrect words, spellings, and punctuation that were not noted in checking the note before saving. Homer Weiss DO CC: Shanae Weeks [phone] (Work) [address] [place] [phone] Nurse Practitioner [facility] [address] [place] [phone] [facility] Neurology [facility] Referring Provider: TODD DINERO [[id number]] Allergies As of Date: 06/29/2019 (No Known Allergies) Date Reviewed: 06/29/2019 Reviewed by: Celeste Weiss DO - Fully Assessed Primary Visit Diagnosis:Syncope and collapse [R55] Other Visit Diagnoses:Near syncope [R55] Chest pain, unspecified type [R07.9] Orthostatic lightheadedness [R42] Order(s):OUTSIDE VENDOR CARDIAC OUTPATIENT TELEMETRY [] Order #: [id number]: 1 EPIL EEG LONG [[id number]] Order #: [id number]: 1 FUTURE Prescriptions as of 06/29/2019 Sig: [...] by CELESTE WEISS DO on 07/06/19 Normal [facility] CNOV Office Visit (NE50MN) FADIA LAN ([id number]) 1 F Date Time Provider Department 06/29/19 11:00 AM OUSMANE GAMBOA NE50MN During your visit today, we recorded the following information about you: Pulse Blood pressure Weight 76/minute 96/60 54.9 kg Ousmane Gamboa MD PhD 07/11/2019 2:46 PM Signed .[facility] [place] [facility] Patient Name: Fadia Lan Date [...] but she was caught by a police lieutenant, she has LOC of unknown duration. 30 mins later, mother came to school, the patient was confused, slurred speech, she looked pale. She was admitted to a local hospital, some elevation of troponin. One week later, she had a similar episodes at school, she had SOB, hands trembling, she thought she was hungary, she went to [employer], she started to drove home, somehow, she [...] 3 day-EEG on 05/18/2019 after she left [facility]. She had a mild spells [...] She was diagnosed of having POTs in [place] in Mar. Psychosocial: No depression, no anxiety. 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 Prior [...] years ago after head injury while playing [employer] ball. She denied smoking, drinking alcohol, and drug use. She is currently having problems with insomnia. She denied significant stress. She has had to stay home from high school and quit her job at [employer] due to episodes. ? Impression/Recommend ations This [...] with prolonged EEG monitoring. Brain Tumor NA FIELD SUPPORT REP Infections NA Developmental Delay NA Family history [...] had BEM recording for several days at [facility] in May 2019 with normal EEG. After she was discharged from [facility], she had ambulatory EEG recording [...] Gamboa MD PhD Staff, [facility] [place], [place] cc: Primary Care Physician: Todd Dinero MD [address] [facility] [address] Referring Physician: SELF Ms. Loaiza Riky [address] [facility] [address] Referring Provider: SELF [[id number]] Allergies As of [...] [R79.89] 05/13/2019 More... Encounter Status:Closed by COMFORT LYNCH, OUSMANE PHD on 07/11/19 Normal [facility] ECG COMPLETEon 06-29-2019 ECG COMPLETE NAME : FADIA LAN PID : [id number] : 2000 Gender : Female Race : ORD : [id number] Procedure Date : Jun 29 2019 13:19:31 Edit Date : Jul 02 2019 13:58:19 Diagnosis:NORMAL SINUS RHYTHM NORMAL ECG Confirmed by OLIVIER RUBIO M.D. ([id number]) on 07/02/2019 1:55:40 PM Ventricular Rate : 75 BPM Atrial Rate : 75 BPM P-R Interval : 140 ms QRS Duration : 94 ms Q-T Interval : 392 ms QTC Calculation(Bazett) : 437 ms P Delevan : 65 degrees R Delevan : 62 degrees T Delevan : 35 degrees Test Reason : Location : 314 : J14 Overread By : OLIVIER RUBIO M.D. Edited By : OLIVIER RUBIO M.D. Referred By : CELESTE WEISS Acquired by : KEVIN MANZANARES Normal [facility] OBSOLETEon 06-29-2019 OBSOLETE Procedure (NEAU) FADIA LAN ([id number]) 1 F Date Time Provider Department 06/29/19 [...] MARIA R GARCIA DO on 06/29/19 Normal [facility] PROCEDUREon 06-29-2019 PROCEDURE HNO ID: [id number] Author: Celeste Weiss DO Service: ? Author [...] showing sinus tachycardia. Celeste Weiss Jr, DO [facility] Name: FADIA LAN : 2000 Ordering provider: CELESTE WEISS Indication: R55 Syncope and collapse Type of monitor: Continuous Telemetry Enrollment dates: 07/11/2019 - 07/31/2019 [facility] PRO[facility]ESS[facility] 06-29-2019 PROGRESS HNO ID: [id number] Author: Celeste Weiss DO Service: ? Author Type: Physician Type: Progress Notes Filed: 07/06/2019 8:58 AM Note Text: [facility] [place] [facility] Department of Cardiovascular Medicine SECTION OF CARDIAC PACING and ELECTROPHYSIOLOGY OUTPATIENT VISIT DATE June 29, 2019 OUTPATIENT VISIT TYPE NEW PRIMARY CARE PHYSICIAN: Todd Dinero MD [address] [place] [address] REFERRING PHYSICIAN: Todd Dinero MD [address] [place] [address] . NURSING INTAKE HISTORY: Fadia Lan is [...] extensive local evaluation including assessment [facility] electrophysiology autonomic laboratory by Dr. pierson, tilt table testing, multiple drug trials, but continues to have events. My findings, recommendations, and plan of care will be added to the electronic medical record and forwarded to the [facility] physicians by [employer] and to the patient and the local [...] the medical intensive care unit of the [facility]. She underwent extensive evaluation including repeat [...] reduction. 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 Love DIALYSIS RN states that there was a borderline increase [...] signs. EKG reveals normal sinus rhythm, normal VA and QRS intervals, no evidence of long [...] suggestions. This note was partially generated using [employer] voice recognition system, and there may be some incorrect words, spellings, and punctuation that were not noted in checking the note before saving. Homer Weiss DO CC: Shanae Weeks [phone] (Work) [address] [place] [phone] Nurse Practitioner León Stallings [facility] [address] [place] [phone] [facility] marilia Gamboa Neurology [facility] Yordy garcia Normal [facility] PROGRESS HNO ID: [id number] Author: Ousmane Gamboa Service: ? Author Type: Physician Type: Progress Notes Filed: 07/11/2019 2:46 PM Note Text: .[facility] [place] [facility] Patient Name: Fadia Lan Date [...] but she was caught by a police lieutenant, she has LOC of unknown duration. 30 mins later, mother came to school, the patient was confused, slurred speech, she looked pale. She was admitted to a local hospital, some elevation of troponin. One week later, she had a similar episodes at school, she had SOB, hands trembling, she thought she was hungary, she went to [employer], she started to drove home, somehow, she [...] 3 day-EEG on 05/18/2019 after she left [facility]. She had a mild spells [...] She was diagnosed of having POTs in [place] in Mar. Psychosocial: No depression, no anxiety. Insomnia. 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 Driving: not for now. 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 Prior [...] years ago after head injury while playing [employer] ball. She denied smoking, drinking alcohol, and drug use. She is currently having problems with insomnia. She denied significant stress. She has had to stay home from high school and quit her job at [employer] due to episodes. ? Impression/Recommend ations This [...] with prolonged EEG monitoring. Brain Tumor NA FIELD SUPPORT REP Infections NA Developmental Delay NA Family history [...] had BEM recording for several days at [facility] in May 2019 with normal EEG. After she was discharged from [facility], she had ambulatory EEG recording [...] Gamboa MD PhD Staff, [facility] [place], [place] cc: Primary Care Physician: Todd Dinero MD [address] [address] Referring Physician: SELF Ms. Fadia Hawthornetarun [address] [id number] Normal [facility] CNOVon 06-15-2019 CNOV Office Visit (SYNCMN) FADIA LAN ([id number]) 1 F Date Time Provider Department 06/15/19 [...] Comfort Measures: Added pillow under knees and [place] Pacemaker: No Other Blood work:None Hemodynamic Tests: Dinamap: Standard Cuff on left Arm Cardiac outputs with Tc 99m via 22 ga angio in right median antecubital. Cold PYP 1.5 ml at 10:06 by DC. Baseline:Trivial SA; VA 140 ms #1: Supine 4.0 mCi at 10:37 by KB BP: 93/57; HR: 65 Moderate SA #2: Supine 8.1 mCi at 10:50 by KB BP: 98/59; HR: 65 Moderate SA #3: HUP60d L-DN 11.8 mCi at 11:07 by KB BP:104/65; HR: 81Mild SA Signature: HOMER Garcia CNMT Ejection Fraction - [place]-Gated: BP: 98/54, HR: 66, MGAQ-HR: 69 Mild SA Note: Test completed uneventfully. KB. IV discontinued at 11:40 by KB. [employer] card received: yes. Staff involved in procedure: HOMER Garcia CNMT; Shameka Gray RN, Parris Mario RDCS Procedure Finish Time: 11:40 Referring Provider: FLAVIO TRAN ([facility]) [[id number]] Allergies As of Date: 06/15/2019 (No Known Allergies) Date Reviewed: 06/04/2019 Reviewed by: Flavio ([facility]) Melissa - Fully Assessed Primary Visit Diagnosis:Syncope, unspecified syncope type [R55] Other Visit Diagnoses:Syncope and collapse [R55] Near syncope [R55] Chest pain, unspecified type [R07.9] Orthostatic dizziness [R42] Orthostatic lightheadedness [R42] Encounter for examination of blood pressure without abnormal findings [Z01.30] Order(s):HEMODYNAMIC ECHOCARDIOGRAM [[id number]] Order #: [id number]. #:[id number]-OFBXVRPE-VFLGN- CCFQty: 1 SALINE LOCK DISCONTINUE [3240681] Order #: [id number]: 1 Prescriptions as of 06/15/2019 Sig: POTASSIUM [...] troponin [R79.89] 05/13/2019 More... Encounter Status:Closed by MARYBETH TAYLOR on 06/28/19 [facility] 06-15-2019 PROGRESS HNO ID: [id number] Author: Marybeth Alexandre (Debbie) Debbie Ferguson Service: ? Author Type: Laundry Press Operator Type: Progress Notes Filed: 06/28/2019 7:35 AM [...] Comfort Measures: Added pillow under knees and [place] Pacemaker: No Other Blood work:None Hemodynamic Tests: Dinamap: Standard Cuff on left Arm Cardiac outputs with Tc 99m via 22 ga angio in right median antecubital. Cold PYP 1.5 ml at 10:06 by DC. Baseline:Trivial SA; VA 140 ms #1: Supine 4.0 mCi at 10:37 by KB BP: 93/57; HR: 65 Moderate SA #2: Supine 8.1 mCi at 10:50 by KB BP: 98/59; HR: 65 Moderate SA #3: HUP60d L-DN 11.8 mCi at 11:07 by KB BP:104/65; HR: 81Mild SA Signature: HOMER Garcia, HE Ejection Fraction - [place]-Gated: BP: 98/54, HR: 66, MGAQ-HR: 69 Mild SA Note: Test completed uneventfully. KB. IV discontinued at 11:40 by KB. [employer] card received: yes. Staff involved in procedure: HOMER Garcia, HE; Shameka Gray RN, Parris Mario RDCS Procedure Finish Time: 11:40 Normal [facility] CNOVon 06-04-2019 CNOV Office Visit (NEADMN) FADIA LAN ([id number]) 1 F Date Time Provider Department 06/04/19 1:00 PM FLAVIO TRAN (JOSE) NEADMN During your visit today, we recorded [...] episode, but was caught by a police lieutenant. Her parents came to the school and [...] She was thus referred to [facility] for workup of POTS. She saw Dr. Mendez's DIALYSIS RN Josi. She had a tilt table test [...] to her family doctor by [facility]. Her mother states that in April 2019 [...] flat. She had a recent admission to [facility] with EEG monitoring done for 5 [...] 5/5biceps, 5/5 wrist extension, and 5/5 hand compliance paralegal. Finger extensor 5/5. Finger flexor 5/5. Pronation [...] of ankles. ? Coordination: Finger-to- nose-finger and kvno-es-wfto intact bilaterally. No ataxia of arms. No [...] tilt table testing done at [facility] that I do not have record of, [...] with more than 50% of the total ypvy-fa-wquf time of the visit in counseling / [...] - TILT TABLE EVALUATION Flavio Tran MSN, WATER JET OPERATOR, ACCOUNTS PAYABLE TECHNICIAN-C 1. This office note has been [...] Allergies) Date Reviewed: 06/04/2019 Reviewed by: Flavio Tran - Fully Assessed Reason for Visit: New Patient [172] Primary Visit Diagnosis:Syncope and collapse [R55] Other Visit Diagnoses:Near syncope [R55] Chest pain, unspecified type [R07.9] Orthostatic dizziness [R42] Orthostatic lightheadedness [R42] Disturbance of skin sensation [R20.9] Order(s):ECG COMPLETE [ECG01] Order #: [id number] FUTURE HEMODYNAMIC ECHOCARDIOGRAM [[id number]] Order #: [id number]: 1 FUTURE perflutren lipid microspheres (DEFINITY) 1.1 [...] saline.Disp: 1.3 mLRfl: 0 TILT TABLE EVALUATION [[id number]] Order #: [id number]: 1 NEURO CARDIO AUTONOMIC REFLEX W/WO TILT [3319146] Order #: [id number] SKIN BIOPSY FOR NEUROPATHY/CNL [4264732] Order #: [id number] CONSULT TO NEUROLOGY [9019] Order #: [id number]: 1 FUTURE HEMODYNAMIC TILT W/IV START [7925067] Order #: [id number]: 1 VITAMIN B12 BLOOD [SQB12] Order #: [id number] FUTURE VITAMIN B1 (THIAMINE), WHOLE BLOOD [SQB1WB] Order #: [id number] FUTURE VITAMIN B6/PYRIDOXIN [SQVITB6] Order #: [id number] FUTURE METHYLMALONIC ACID [SQMMA] Order #: [id number] FUTURE COPPER BLOOD [SQCOPPER] Order #: [id number] FUTURE IMMUNOFIXATION SCREEN, SERUM [SQIFESC] Order #: [id number] FUTURE Prescriptions as of 06/04/2019 Sig: POTASSIUM [...] Status:Closed by FLAVIO TRAN on 06/04/19 Normal [facility] Copperon 06-04-2019 Copper 76 ug/dL Low 85-155 [facility] Comment on above: Result Comment: This test was developed and its performance characteristics determined by [facility] [place] ([facility]). It has not been cleared or approved by the FDA. [facility] is regulated under CLIA as qualified to perform high complexity testing. This test is used for clinical purposes. It should not be regarded as investigational or for research. Performed By: #### C BC, CMP, MG1, PHOS #### [facility] [address] [address] SONI Screen, Serumon 06-04-20 19 Protein [Mass/Vol] No M protein is identified. Normal No M protein is identified. [facility] Comment on above: Performed By: #### C BC, CMP, MG1, PHOS #### [facility] [address] [address] Staff Review Reviewed by Lyla Hoyos MD. ([id number]) Normal [facility] Comment on above: Performed By: #### C BC, CMP, MG1, PHOS #### [facility] [address] [address] Methylmalonic Acidon 019 Methylmalonic Acid 161 nmol/L Normal 79-376 [facility] Comment on above: Result Comment: This test was developed and its performance characteristics determined by [facility] [place] ([facility]). It has not been cleared or approved by the FDA. [facility] is regulated under CLIA as qualified to perform high complexity testing. This test is used for clinical purposes. It should not be regarded as investigational or for research. Performed By: #### C BC, CMP, MG1, PHOS #### [facility] [address] [place], [place] [address] PROGRESSon 06-04-2019 PROGRESS HNO ID: [id number] Author: Flavio Tran Service: ? Author Type: [...] episode, but was caught by a police lieutenant. Her parents came to the school and [...] She was thus referred to [facility] for workup of POTS. She saw Dr. Mendez's DIALYSIS RN Josi. She had a tilt table test [...] to her family doctor by [facility]. Her mother states that in April 2019 [...] flat. She had a recent admission to [facility] with EEG monitoring done for 5 [...] 5/5biceps, 5/5 wrist extension, and 5/5 hand compliance paralegal. Finger extensor 5/5. Finger flexor 5/5. Pronation [...] of ankles. ? Coordination: Finger-to- nose-finger and qqdl-pp-xoeg intact bilaterally. No ataxia of arms. No [...] tilt table testing done at [facility] that I do not have record of, [...] with more than 50% of the total elhk-qw-gswf time of the visit in counseling / [...] - TILT TABLE EVALUATION Flavio Tran MSN, WATER JET OPERATOR, ACCOUNTS PAYABLE TECHNICIAN-C 1. This office note has been [...] the discretion of your PCP/referring physician Normal [facility] Vitamin B1, Whole Blon 06-04 Vitamin B1 (TDP), WB 189.4 nmol/L Normal 84.0-213.0 [facility] Comment on above: Result Comment: This assay measures the concentration of thiamine diphosphate (TDP), the primary active form of vitamin B1. Approximately 90 percent of vitamin B1 present in whole blood is TDP. Thiamine and thiamine monophosphate, which comprise the remaining 10 percent, are not measured. This test was developed and its performance characteristics determined by [facility] [place] ([facility]). It has not been cleared or approved by the FDA. [facility] is regulated under CLIA as qualified to perform high complexity testing. This test is used for clinical purposes. It should not be regarded as investigational or for research. Performed By: #### C BC, CMP, MG1, PHOS #### [facility] [address] [place], [place] [address] Vitamin B12on 06-04-2019 Cobalamin (Vitamin B12) [Mass/Vol] 989 pg/mL Normal 232-1245 [facility] Comment on above: Performed By: #### C BC, CMP, MG1, PHOS #### [facility] [address] [place], [place] [address] Vitamin B6 Plasmaon 06-04-20 19 Vitamin B6 Plasma 29.7 nmol/L Normal 20.0-125.0 [facility] Comment on above: Result Comment: (NOT E) INTERPRETIVE INFORMATION: Vitamin B6 (Pyridoxal 5-Phosphate) Pyridoxal 5'-phosphate measured in a specimen collected following an 8-hour or overnight fast accurately indicates vitamin B6 nutritional status. Non-fasting specimen concentration reflects recent vitamin intake. Test developed and characteristics determined by [facility]. See Compliance Statement B: [employer]/ Performed by [facility], [address] [place] [id number] [email or web address], Chris Domingo MD, Lab. Director Performed By: #### C BC, CMP, MG1, PHOS #### [facility] [address] [place], [place] [address] PLAN OF CAREon 05-16-2019 PLAN OF CARE HNO ID: [id number] Author: Drew Walton Service: Cardiovascular Medicine Author Type: Resident Type: Plan of Care Filed: 05/16/2019 7:39 AM Note Text: Attestation signed by John Valdivia at 05/16/2019 9:00 AM [facility] STAFF PHYSICIAN NOTE OF PERSONAL INVOLVEMENT IN [...] chordal structure . Cardiac enzymes negative at [facility]. TTE done yesterday with normal systolic function, no wall motion abnormalities, and no thickening or mobile lesion. Cardiology will sign off at this time. Please do not hesitate to re consult with any concerns. Drew Walton MD [phone] Normal [facility] PROGRESSon 05-15-2019 PROGRESS HNO ID: [id number] Author: Shanae Morales Service: General Internal Medicine Author Type: Physician Type: Progress Notes Filed: 05/15/2019 5:43 PM Note Text: SERVICE DATE: 05/15/2019 SERVICE TIME: 5:31 PM HOSPITAL MEDICINE PROGRESS NOTE NIGHT AND WEEKEND COVERAGE: Days: [phone] [place] [phone] for patient issues. Nights: [phone] For patients on H80/81, G80/81, please page GIM team pager [phone] For patients on any other floor, please page GIM team pager [phone] Hospital Medicine/Primary Attending: Shanae Morales MD Subjective [...] 0830 vte non-pharmacologic prophylaxis - none indicated (mt,oh) VTE Prophylaxis: VTE prophylaxis appropriate Plan of care discussed with: Provider, Family/Significant Other: mother, Care Management and RN SIGNATURE: Shanae Morales MD PATIENT NAME: Fadia Lan DATE: May 15, 2019 TIME: 5:31 PM PAGER/CONTACT #: [phone] Normal [facility] C-Reactive Proteinon 019 CRP [Mass/Vol] mg/L Normal <0.9 [facility] Comment on above: Performed By: #### V ALLBG #### [facility] [address] [id number] [facility] CASE MANAGEM HNO ID: [id number] Author: Sendy PerrinRn) MICHAEL Olson Service: Care Management Author Type: [...] 14, 2019 TIME: 5:43 PM PAGER/CONTACT #: [phone] Normal [facility] CASE MANAGEM HNO ID: [id number] Author: Ruby Boudreaux) MICHAEL Haile Service: Case Management Author Type: Registered Nurse Type: Care Mgt Progress Note Filed: 05/14/2019 2:44 PM Note Text: CARE MANAGEMENT PROGRESS NOTE SERVICE DATE: 05/14/2019 SERVICE TIME: 2:43 PM LOS: 2 days Progress Note Attempted to see the patient however she was sound asleep. Care Management will follow for Post Hospital Transition Needs. SIGNATURE: Ruby HaileRN,BSN,ACM-R N PATIENT NAME: Fadia Lan DATE: May 14, 2019 TIME: 2:43 PM PAGER/CONTACT #: [phone] Normal [facility] Cortisolon 05-14-2019 Cortisol 20.4 ug/dL Normal [facility] Comment on above: Result Comment: Juan isol Reference Range: AM = 5.3-22.5, PM = 3.4-16.8 Performed By: #### C BC, CMP, MG1, PHOS #### [facility] [address] [place] [address] PLAN OF CAREon 05-14-2019 PLAN OF CARE HNO ID: [id number] Author: Dante Smith MD Service: Neurology General [...] if new findings on EEG, please page [phone] -Pt should follow up with epilepsy - will place follow up order -For further POTS management, pt may follow up in autonomic clinic if she chooses -Please page with further questions Dante Smith MD PGY-2 Neurology Pager [phone] Normal [facility] PROGRESSon 05-14-2019 PROGRESS HNO ID: [id number] Author: Shanae Morales Service: General Internal Medicine Author Type: Physician Type: Progress Notes Filed: 05/14/2019 6:19 PM Note Text: SERVICE DATE: 05/14/2019 SERVICE TIME: 6:17 PM HOSPITAL MEDICINE PROGRESS NOTE NIGHT AND WEEKEND COVERAGE: Days: [phone] [place] [phone] for patient issues. Nights: 7924-3232 For patients on H80/81, G80/81, please page GIM team pager [phone] For patients on any other floor, please page GIM team pager [phone] Hospital Medicine/Primary Attending: Shanae Morales MD Subjective [...] 0830 vte non-pharmacologic prophylaxis - none indicated (mt,oh) VTE Prophylaxis: VTE prophylaxis appropriate Plan of care discussed with: Patient, Family/Significant Other: mother, Care Management and RN via telephone SIGNATURE: Shanae Morales MD PATIENT NAME: Fadia Lan DATE: May 14, 2019 TIME: 6:17 PM PAGER/CONTACT #: [phone] Normal [facility] Troponin Ton 05-14-2019 Troponin T.cardiac [Mass/Vol] ug/L Normal 0.000-0.029 [facility] Comment on above: Performed By: #### V ALLBG #### [facility] [address] [address] NURSING PROGon 05-13-2019 NURSING PROG HNO ID: [id number] Author: Colleen (Rn) MICHAEL Devine Service: ? Author Type: Registered Nurse Type: Nursing Progress Note Filed: 05/13/2019 5:05 AM Note Text: Nursing Progress Note Patient Name: Fadia Lan Patient Location: G[facility]/[facility]-28 Daily Note: Pt arrived to unit in stable condition. Pt was fully assessed including skin check with 2nd RN. Pt was oriented to room, instructed on how to use the call button, explained why she is currently a falls risk, and taught her how to use the call light for help. Pt stated that her belongings include her cell lurdes, financial advisor, health history documents, and home medications. I instructed patient that doctors will need to see medication to reconcile med orders but that we will be providing all medication while she is in the hospital. Pt showed no signs and had no c/o pain, dizziness, chest pains or seizure activity at this time. This note was completed by: Colleen Devine RN Normal [facility] PROGRESSon 05-13-2019 PROGRESS HNO ID: [id number] Author: Gerald Borrego) Mario Alberto Service: Hospital [...] Staff, Dept. Of Hospital Medicine PAGER - [phone] ' [facility] PROGRESS HNO ID: [id number] Author: Scott Rodriguez Service: Hospital Medicine Author Type: Physician Type: Progress Notes Filed: 05/13/2019 2:50 AM Note Text: DEPARTMENT OF HOSPITAL MEDICINE PROGRESS NOTE SERVICE DATE: 05/13/2019 SERVICE TIME: 2:42 AM Primary Care Physician: Todd Dinero MD NIGHT AND WEEKEND COVERAGE: Please page me at [phone] with any question between 5 pm-8 am. Afterwards, page the assigned team. Subjective CHIEF COMPLAINT: Mohsen HPI: This is a 18 year old [...] 0830 vte non-pharmacologic prophylaxis - none indicated (mt,oh) VTE Prophylaxis: low risk Disposition: Home Plan of care discussed with: Patient and RN SIGNATURE: Scott Rodriguez MD PATIENT NAME: Fadia Lan DATE: May 13, 2019 TIME: 2:11 AM PAGER/CONTACT #: [phone] etx [phone] Normal [facility] CBCon 05-12-2019 Absolute nRBC <0.01 Normal <0.01 [facility] Comment on above: Performed By: #### C BC, CMP, MG1, PHOS #### [facility] [address] [place], [place] [address] Erythrocyte distribution width (RBC) [Ratio] 11.3 % Low 11.5-15.0 [facility] Comment on above: Performed By: #### C BC, CMP, MG1, PHOS #### [facility] [address] [place], [place] [address] Hematocrit (Bld) [Volume fraction] 36.1 % Normal 36.0-46.0 [facility] Comment on above: Performed By: #### C BC, CMP, MG1, PHOS #### [facility] [address] [place], [place] [address] Hemoglobin (Bld) [Mass/Vol] 12.6 g/dL Normal 11.5-15.5 [facility] Comment on above: Performed By: #### C BC, CMP, MG1, PHOS #### [facility] [address] [place], [place] [address] MCH (RBC) [Entitic mass] 31.0 pG Normal 26.0-34.0 [facility] Comment on above: Performed By: #### C BC, CMP, MG1, PHOS #### [facility] [address] [place], [place] [address] MCHC (RBC) [Mass/Vol] 34.9 g/dL Normal 30.5-36.0 [facility] Comment on above: Performed By: #### C BC, CMP, MG1, PHOS #### [facility] [address] [place], [place] [address] MCV (RBC) [Entitic vol] 88.7 fL Normal 80.0-100.0 [facility] Comment on above: Performed By: #### C BC, CMP, MG1, PHOS #### [address] [address] Platelet mean volume (Bld) [Entitic vol] 8.6 fL Low 9.0-12.7 [facility] Comment on above: Performed By: #### C BC, CMP, MG1, PHOS #### [address] [address] Platelets (Bld) [#/Vol] 328 10*3/uL Normal 150-400 [facility] Comment on above: Performed By: #### C BC, CMP, MG1, PHOS #### [address] [address] RBC (Bld) [#/Vol] 4.07 10*6/uL Normal 3.90-5.20 [facility] Comment on above: Performed By: #### C BC, CMP, MG1, PHOS #### [address] [place] [id number] WBC (Bld) [#/Vol] 5.72 10*3/uL Normal 3.70-11.00 [facility] Comment on above: Performed By: #### C BC, CMP, MG1, PHOS #### [facility] [address] [address] CONSULTon 05-12-2019 CONSULT HNO ID: [id number] Author: Ramesh Scales Service: Neurology General Author [...] 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 Prior [...] years ago after head injury while playing [employer] ball. She denied smoking, drinking alcohol, and drug use. She is currently having problems with insomnia. She denied significant stress. She has had to stay home from high school and quit her job at [employer] due to episodes. Current Facility-Administere d Medications [...] Finger Flex Finger Ext Finger Abd Right 10/15 10/15 10/15 10/15 10/15 10/15 10/15 5 Left 10/15 10/15 10/15 10/15 10/15 10/15 10/15 5/ Hip Flex BiFem (knee flex) Quads (knee ext) Gastroc (plantflx) TibAnt (Dorsiflx) FlxHLong (ToeFlex) ExtHLong (ToeExt) Right 10/15 10/15 10/15 10/15 10/15 10/15 10/15 Left 5/5 5/5 5/5 5/5 5/5 5/5 5/5 REFLEXES Right Left Bicep 2/4 2/4 BrRad 2/4 2/4 Knee 2/4 2/4 Ankle 2/4 2/4 Pathological Reflexes: Babinski: bilaterally Downward response ? Sensation: Intact to light touch and vibratory sense in all four extremities. ? Coordination: Finger-to- nose-finger intact bilaterally and Gydy-en-uwvt intact bilaterally. ? Gait: Not examined. LABS/DATA: [...] [place] [phone]. - [place] [phone] with questions. The patient was evaluated by Neurology Moonlighter and will be formally seen by staff in the AM. SIGNATURE: Maria De Jesus Gunderson MD PGY4 Neurology Resident PATIENT NAME: Fadia Lan DATE: May 12, 2019 TIME: 12:49 PM PAGER/CONTACT #: [phone] Staff Note: I reviewed the history and physical obtained and documented by the resident and I personally participated in the rosado components. I agree with impression and plan. Ramesh Scales MD Normal [facility] Comp Metabolic Panelon 05-12 Albumin [Mass/Vol] 4.1 g/dL Normal 3.9-4.9 [facility] Comment on above: Performed By: #### C BC, CMP, MG1, PHOS #### [facility] [address] [place], [place] [address] ALP [Catalytic activity/Vol] 54 U/L Normal 45-87 [facility] Comment on above: Result Comment: Refe rence ranges were not locally established for this patient's age group. The normal values are based on the following source: Austen BERNARD, Dari AH, et al. CLSI based transference of the [facility] database of pediatric reference intervals from [place]al to Antionette, Ortho, Nathalia, and Siemens Clinical Chemistry Assays: Direct validation using reference samples from the [facility] cohort. Clin Biochem. Performed By: #### C BC, CMP, MG1, PHOS #### [facility] [address] [place], [place] [address] ALT [Catalytic activity/Vol] 10 U/L Normal 7-38 [facility] Comment on above: Performed By: #### C BC, CMP, MG1, PHOS #### [address] [place], [place] [address] Anion gap [Moles/Vol] 11 mmol/L Normal 9-18 [facility] Comment on above: Performed By: #### C BC, CMP, MG1, PHOS #### [address] [address] [place] [address] AST [Catalytic activity/Vol] 14 U/L Normal 13-35 [facility] Comment on above: Performed By: #### C BC, CMP, MG1, PHOS #### [facility] [address] [place], [place] [address] Bilirubin [Mass/Vol] 0.5 mg/dL Normal 0.2-1.3 [facility] Comment on above: Performed By: #### C BC, CMP, MG1, PHOS #### [facility] [address] [place], [place] [address] Calcium [Mass/Vol] 8.7 mg/dL Normal 8.5-10.2 [facility] Comment on above: Performed By: #### C BC, CMP, MG1, PHOS #### [facility] [address] [place] [address] Chloride [Moles/Vol] 105 mmol/L Normal 97-105 [facility] Comment on above: Performed By: #### C BC, CMP, MG1, PHOS #### [facility] [address] [place] [address] CO2 [Moles/Vol] 26 mmol/L Normal 22-30 [facility] Comment on above: Performed By: #### C BC, CMP, MG1, PHOS #### [facility] [address] [place] [address] Creatinine [Mass/Vol] 0.58 mg/dL Normal 0.58-0.96 [facility] Comment on above: Performed By: #### C BC, CMP, MG1, PHOS #### [facility] [address] [place] [address] eGFR- Amer. >60 Normal [facility] Comment on above: Performed By: #### C BC, CMP, MG1, PHOS #### [facility] [address] [place] [address] GFR/1.73 sq M predicted among non-blacks MDRD (S/P/Bld) [Vol rate/Area] mL/min/{1.73_m2} Normal [facility] Comment on above: Result Comment: eGFR (Estimated [...] #### C BC, CMP, MG1, PHOS #### [facility] [address] [place], [place] [address] Glucose [Mass/Vol] 81 mg/dL Normal 74-99 [facility] Comment on above: Result Comment: The [place] Diabetes Association (ADA) provides guidance for cutoff [...] Standards of Medical Care in Diabetes 2016, [place] Diabetes Association. Diabetes Care. 2016.39(Suppl 1). Performed By: #### C BC, CMP, MG1, PHOS #### [facility] [address] [place], [place] [address] Potassium [Moles/Vol] 3.3 mmol/L Low 3.7-5.1 [facility] Comment on above: Performed By: #### C BC, CMP, MG1, PHOS #### [facility] [address] [place], [place] [address] Protein [Mass/Vol] 6.1 g/dL Low 6.3-8.0 [facility] Comment on above: Performed By: #### C BC, CMP, MG1, PHOS #### [facility] [address] [place], [place] [address] Sodium [Moles/Vol] 142 mmol/L Normal 136-144 [facility] Comment on above: Performed By: #### C BC, CMP, MG1, PHOS #### [facility] [address] [place], [place] [address] Urea nitrogen [Mass/Vol] 5 mg/dL Low 7-21 [facility] Comment on above: Performed By: #### C BC, CMP, MG1, PHOS #### [facility] [address] [place], [place] [address] ECG COMPLETEon 05-12-2019 ECG COMPLETE NAME : FADIA LAN PID : [id number] : 2000 Gender : Female Race : ORD : [id number] Procedure Date : May 12 2019 13:55:01 [...] ms QTC Calculation(Bazett) : 435 ms P Delevan : 62 degrees R Delevan : 65 degrees T Delevan : 54 degrees Test Reason : Arrhythmia Location : 151 : G51 09 Overread By : MD STACEY, PhD,IZABELA Edited By : MD STACEY, PhD,IZABELA Referred By : MERRITT HANLEY Acquired by : YUAN DIAZ Normal [facility] EKG1on 05-12-2019 EKG1 NAME : FADIA LAN PID : [id number] : 2000 Gender : Female Race : [...] ms QTC Calculation(Bazett) : 432 ms P Delevan : 64 degrees R Delevan : 76 degrees T Delevan : 45 degrees Test Reason : Location : 115 : G60NS Overread By : MD STACEY, PhD,IZABELA Edited By : MD STACEY, PhD,IZABELA Referred By : , Acquired by : [id number], Normal [facility] GASV + ALLon 05-12-2019 Base Excess 1 mmol/L Normal [facility] Comment on above: Performed By: #### V ALLBG #### [facility] [address] [place], [place] [address] Calcium [Mass/Vol] 1.23 mmol/L Normal 1.08-1.30 [facility] Comment on above: Performed By: #### V ALLBG #### [facility] [address] [place], [place] [address] Carboxyhemoglobin,Kevin 1.1 % Normal <2.0 [facility] Comment on above: Performed By: #### V ALLBG #### [facility] [address] [place], [place] [address] CO2 [Moles/Vol] 28 mmol/L Normal 25-29 [facility] Comment on above: Performed By: #### V ALLBG #### [facility] [address] [place], [place] [address] Glucose [Mass/Vol] 84 mg/dL Normal 60-105 [facility] Comment on above: Performed By: #### V ALLBG #### [facility] [address] [place], [place] [address] HCO3 (Bld) [Moles/Vol] 27 mmol/L Normal 24-28 [facility] Comment on above: Performed By: #### V ALLBG #### [facility] [address], [place] [address] Hematocrit (Bld) [Volume fraction] 40 % Normal 36.0-46.0 [facility] Comment on above: Performed By: #### V ALLBG #### [facility] [address] [place], [place] [address] Hemoglobin (Bld) [Mass/Vol] 12.9 g/dL Normal 11.5-15.5 [facility] Comment on above: Performed By: #### V ALLBG #### [facility] [address] [place], [place] [address] Lactate [Moles/Vol] 0.9 mmol/L Normal 0.5-2.2 [facility] Comment on above: Performed By: #### V ALLBG #### [facility] [address] [phone] Methemoglobin 0.6 % Normal 0.4-1.5 [facility] Comment on above: Performed By: #### V ALLBG #### [facility] [address] [place] [phone] Oxygen (Bld) [Partial pressure] 46 mm Hg High 35-45 [facility] Comment on above: Performed By: #### V ALLBG #### [facility] [address] [place] [phone] Oxyhemoglobin, Kevin. 76 % Normal 60-85 [facility] Comment on above: Performed By: #### V ALLBG #### [facility] [address] [place] [phone] pCO2 49 mm Hg Normal 42-55 [facility] Comment on above: Performed By: #### V ALLBG #### [facility] [address] [phone] pCO2, Temp Correct 49 mm Hg Normal [facility] Comment on above: Performed By: #### V ALLBG #### [facility] [address] [place] [phone] pH (Bld) 7.36 [pH] Normal 7.32-7.42 [facility] Comment on above: Performed By: #### V ALLBG #### [facility] [address] [phone] pH, Temp Corrected 7.36 Normal 7.32-7.42 [facility] Comment on above: Performed By: #### V ALLBG #### [facility] [address] [place] [phone] pO2, Temp Corrected 46 mm Hg Normal [facility] Comment on above: Performed By: #### V ALLBG #### [facility] [address] [place], [place] [id number] Potassium [Moles/Vol] 3.3 mmol/L Low 3.5-5.0 [facility] Comment on above: Performed By: #### V ALLBG #### [facility] [address] [place], [place] [address] Sodium [Moles/Vol] 140 mmol/L Normal 132-148 [facility] Comment on above: Performed By: #### V ALLBG #### [facility] [address] [place], [place] [address] HISTORY PHYSICALon HISTORY PHYSICAL HNO ID: [id number] Author: Tony Tapia MD Service: Critical Care Author Type: Resident Type: HANDP Filed: 05/12/2019 2:09 PM Note Text: Attestation signed by Skip Zee at 05/12/2019 6:09 PM [facility] STAFF PHYSICIAN NOTE OF PERSONAL INVOLVEMENT IN [...] of care, medical plan for the day, integrity consultant recommendations, medical disposition and current medical condition/prognosis as and if clinically indicated. All questions and concerns were answered and addressed at this juncture. They were notified on May 12, 2019. Plan of care discussed with: Provider, RN, Patient. 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 Keflex and mupirocin given and the infection [...] 0830 vte non-pharmacologic prophylaxis - none indicated (mt,oh) 05/12/19 0830 activity - mobilize patient (mt,ne) VTE Prophylaxis: VTE prophylaxis appropriate Bowels: no [...] to be reviewed by Dr. Zee Normal [facility] Magnesiumon 05-12-2019 Magnesium [Mass/Vol] 1.9 mg/dL Normal 1.7-2.3 [facility] Comment on above: Performed By: #### C BC, CMP, MG1, PHOS #### [facility] [address] [place], [place] [address] PROGRESSon 05-12-2019 PROGRESS HNO ID: [id number] Author: John Valdivia Service: Cardiovascular Medicine Author Type: Physician Type: Progress Notes Filed: 05/13/2019 2:01 PM Note Text: [facility] CARDIOVASCULAR [facility]ICINE HISTORY AND PHYSICAL Fadia Lan [id number] PRIMARY SERVICE: [facility] DATE OF ADMISSION: 05/12/2019 CHIEF COMPLAINT: troponinemia [...] mobile density -I uploaded the echos to [employer]. Would repeat TTE here. 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 Briefly, Ms. Loaiza is an 18 year [...] will continue to follow. Drew Walton MD [phone] [facility] STAFF PHYSICIAN NOTE OF PERSONAL INVOLVEMENT IN [...] evidence of cardiomyopathy PLAN: repeat troponin at [facility] And if elevated consider further testing Echocardiogram telemetry monitoring John Valdivia MD DATE of SERVICE: May 13, 2019 TIME of SERVICE: 2:00 PM Normal [facility] Phosphoruson 05-12-2019 Phosphate [Mass/Vol] 3.9 mg/dL Normal 2.7-4.8 [facility] Comment on above: Performed By: #### C BC, CMP, MG1, PHOS #### [place] [address] [place] [address] Sed Rate Westergrenon 2018 Sed Rate Westergren 2 mm/hr Normal 0-20 [facility] Comment on above: Performed By: #### T NT, WSR, TSH #### [place] [id number] [place] [address] Staph aureus PCRon 9 MRSA PCR Negative Normal [facility] Comment on above: Performed By: #### V ALLBG #### [place] [address] S aureus Spec Source Nasal Normal [facility] Comment on above: Performed By: #### V ALLBG #### [place] [address] Staph aureus PCR Negative Normal [facility] Comment on above: Result Comment: Perf ormance characteristics of this assay for testing specimens from patients <=21 years of age were determined by [facility] Path[facility] and Laboratory Medicine [place] ([facility]). Performance on this age group has not been approved by the FDA. [facility] is regulated under CLIA as qualified to perform high complexity testing. This test is used for clinical purposes. It should not be regarded as investigational or for research. Performed By: #### V ALLBG #### [place] [address] TSHon 05-12-2019 TSH Qn 1.970 uU/mL Normal 0.510-4.300 [facility] Comment on above: Result Comment: If t he patient is , TSH reference range varies by gestational period: First Trimester (weeks 9-12): 0.180-2.990 mcIU/mL Second Trimester: 0.110-3.980 mcIU/mL Third Trimester: 0.480-4.710 mcIU/mL Favian Rosas et al. A Practical Approach for the Verifications and Determination of Site- and Trimester-Specific Reference Intervals for Thyroid Function tests in . Thyroid, 2019:29:3:412-420. Paul Mckenzie et al. 2017 Guidelines of the [place] Thyroid Association for the Diagnosis and Management of Thyroid Disease during and the . Thyroid, 2017:27:3:315-389. Reference ranges were not locally established for this patient's age group. The normal values are based on the following source: Awa Aceves V. Reference Ranges for Adults and Children: Pre-analytical Considerations. [facility] Performed By: #### V ALLBG #### [facility] [address] [place] [address] Toxicology Screen,Uron 05-12 Amphetamines, Urine Negative Normal Negative [facility] Comment on above: Result Comment: Cuto ff threshold at 1000 ng/mL. Performed By: #### U TOX2, UAWMIC #### [facility] [place] [phone] Barbiturates, Urine Negative Normal Negative [facility] Comment on above: Result Comment: Cuto ff threshold at 200 ng/mL. Performed By: #### U TOX2, UAWMIC #### [facility] [place] [address] Benzodiazepines, Ur Negative Normal Negative [facility] Comment on above: Result Comment: Cuto ff threshold at 200 ng/mL. Performed By: #### U TOX2, UAWMIC #### [facility] [address] [place] [address] Cannabinoids, Urine Negative Normal Negative [facility] Comment on above: Result Comment: Cuto ff threshold at 50 ng/mL. Performed By: #### U TOX2, UAWMIC #### [facility] [address] [place] [phone] Cocaine, Urine Negative Normal Negative [facility] Comment on above: Result Comment: Cuto ff threshold at 300 ng/mL. Performed By: #### U TOX2, UAWMIC #### [facility] [address] [place] [address] Ethanol, Urine <11 Normal <11 [facility] Comment on above: Performed By: #### U TOX2, UAWMIC #### [facility] [address] [place] [phone] Opiates, Urine Negative Normal Negative [facility] Comment on above: Result Comment: Cuto ff threshold at 300 ng/mL. Performed By: #### U TOX2, UAWMIC #### [place] [address] [place] [phone] Oxycodone, Urine Negative Normal Negative [facility] Comment on above: Result Comment: Cuto [...] on the same specimen through Client Services ([phone]) if contacted within 48 hours of initial testing. [1]Substance Abuse and Mental Health Services Administration (2012). Clinical Drug Testing in Primary Care Technical Assistance Publication Series 32. Department of Health and Human Services, [place], p.10. Performed By: #### U TOX2, UAWMIC #### [place] [address] [place] [address] Phencyclidine, Urine Negative Normal Negative [facility] Comment on above: Result Comment: Cuto ff threshold at 25 ng/mL. Performed By: #### U TOX2, UAWMIC #### [facility] [address] [place] [address] Troponin Ton 05-12-2019 Troponin T.cardiac [Mass/Vol] ug/L Normal 0.000-0.029 [facility] Comment on above: Performed By: #### T NT, WSR, TSH #### [place] [address] [place] [phone] Urinalysis with Microscopico n 05-12-2019 Bilirubin, Urine Negative Normal Negative [facility] Comment on above: Performed By: #### U TOX2, UAWMIC #### [place] [address] [place] [phone] Clarity (U) Clear Normal Clear [facility] Comment on above: Performed By: #### U TOX2, UAWMIC #### [place] [phone] Color (U) Yellow Normal Yellow [facility] Comment on above: Performed By: #### U TOX2, UAWMIC #### [place] [phone] Comments SEE COMMENT Normal [facility] Comment on above: Result Comment: N/A Performed By: #### U TOX2, UAWMIC #### [place] [address] [place] [phone] Epithelial cells LM.HPF (Urine sed) [#/Area] SEE COMMENT Normal [facility] Comment on above: Result Comment: Few Squamous Epithelial Cells Performed By: #### U TOX2, UAWMIC #### [place] [address] [place] [phone] Glucose Ql (U) Negative Normal Negative [facility] Comment on above: Performed By: #### U TOX2, UAWMIC #### [facility] [place] [phone] Hemoglobin/Blood,Ur 1+ Critically abnormal Negative [facility] Comment on above: Performed By: #### U TOX2, UAWMIC #### [facility] [address] [place], [place] [address] Ketones Ql (U) Negative Normal Negative [facility] Comment on above: Performed By: #### U TOX2, UAWMIC #### [facility] [address] [place], [place] [address] Leukest Negative Normal Negative [facility] Comment on above: Performed By: #### U TOX2, UAWMIC #### [facility] [address] [place], [place] [address] Nitrite Ql (U) Negative Normal Negative [facility] Comment on above: Performed By: #### U TOX2, UAWMIC #### [facility] [address] [place], [place] [address] pH (Bld) 6.0 Normal 4.5-8.0 [facility] Comment on above: Performed By: #### U TOX2, UAWMIC #### [facility] [address] [place], [place] [address] Protein (U) [Mass/Vol] Negative Normal Negative [facility] Comment on above: Performed By: #### U TOX2, UAWMIC #### [facility] [address] [place], [place] [address] RBC (U) [#/Vol] 0-3 Normal 0-3 [facility] Comment on above: Performed By: #### U TOX2, UAWMIC #### [facility] [address] [place], [place] [address] Specific [place], Ur 1.009 Normal 1.005-1.030 [facility] Comment on above: Performed By: #### U TOX2, UAWMIC #### [facility] [address], [place] [address] Urine Álvaro Comment SEE COMMENT Normal [facility] Comment on above: Result Comment: N/A Performed By: #### U TOX2, UAWMIC #### [facility] [address] [place] [address] Urobilinogen Qn (U) Normal Normal Normal [facility] Comment on above: Performed By: #### U TOX2, UAWMIC #### [facility] [address] [place] [address] WBC (Bld) [#/Vol] 0-5 Normal 0-5 [facility] [place] Comment on above: Performed By: #### U TOX2, UAWMIC #### [place] [address] [place] [id number] CNCOon 05-01-2019 CNCO Letter Text Normal [facility] Vital Signs Date Time Vital Sign Value Performing Clinician Facility 09-25-2024 09:35-0400 Body mass index (BMI) [Ratio] 20.77 kg/m2 Dmitri Asif DO Work Phone: [facility] 09-25-2024 09:35-0400 Body weight 56.61 kg Dmitri Asif DO Work Phone: [facility] 09-25-2024 09:35-0400 Diastolic blood pressure 68 mm[Hg] Dmitri Asif DO Work Phone: [facility] 09-25-2024 09:35-0400 Systolic blood pressure 106 mm[Hg] Dmitri Asif DO Work Phone: [facility] 05-17-2024 16:30-0500 Body height 165.1 cm Zaid Dolce DPM FACFAS Work Phone: [facility] 05-17-2024 16:30-0500 Body mass index (BMI) [Ratio] 19.64 kg/m2 Zaid Dolce DPM FACFAS Work Phone: [facility] 05-17-2024 16:30-0500 Body weight 53.52 kg Zaid Dolce DPM FACFAS Work Phone: [facility] 05-17-2024 16:30-0500 Diastolic blood pressure 66 mm[Hg] Zaid Dolce DPM FACFAS Work Phone: [facility] 05-17-2024 16:30-0500 Heart rate 70 /min Zaid Dolce DPM FACFAS Work Phone: [facility] 05-17-2024 16:30-0500 Systolic blood pressure 101 mm[Hg] Zaid Dolce DPM FACFAS Work Phone: [facility] 04-24-2024 16:23-0500 Body height 165.1 cm Zaid Dolce DPM FACFAS Work Phone: [facility] 04-24-2024 16:23-0500 Body mass index (BMI) [Ratio] 19.64 kg/m2 Zaid Dolce DPM FACFAS Work Phone: [facility] 04-24-2024 16:23-0500 Body weight 53.52 kg Zaid Dolce DPM FACFAS Work Phone: [facility] 04-24-2024 16:23-0500 Diastolic blood pressure 64 mm[Hg] Zaid Dolce DPM FACFAS Work Phone: [facility] 04-24-2024 16:23-0500 Heart rate 70 /min Zaid Dolce DPM FACFAS Work Phone: [facility] 04-24-2024 16:23-0500 Systolic blood pressure 101 mm[Hg] Zaid Dolce DPM FACFAS Work Phone: [facility] 04-23-2024 08:50-0500 Body mass index (BMI) [Ratio] 19.64 kg/m2 Dmitri Asif DO Work Phone: [facility] 04-23-2024 08:50-0500 Body weight 53.52 kg Dmitri Asif DO Work Phone: [facility] 04-23-2024 08:50-0500 Diastolic blood pressure 60 mm[Hg] Dmitri Asif DO Work Phone: [facility] 04-23-2024 08:50-0500 Systolic blood pressure 100 mm[Hg] Dmitri Asif DO Work Phone: [facility] 04-18-2024 16:13-0500 Body mass index (BMI) [Ratio] 19.28 kg/m2 Dmitri Asif DO Work Phone: [facility] 04-18-2024 16:13-0500 Body weight 52.55 kg Dmitri Asif DO Work Phone: [facility] 04-18-2024 16:13-0500 Diastolic blood pressure 60 mm[Hg] Dmitri Asif DO Work Phone: [facility] 04-18-2024 16:13-0500 Systolic blood pressure 110 mm[Hg] Dmitri Asif DO Work Phone: [facility] 04-03-2024 16:08-0400 Body height 165.1 cm Zaid Dolce DPM FACFAS Work Phone: [facility] 04-03-2024 16:08-0400 Body mass index (BMI) [Ratio] 20.97 kg/m2 Zaid Dolce DPM FACFAS Work Phone: [facility] 04-03-2024 16:08-0400 Body weight 57.15 kg Zaid Dolce DPM FACFAS Work Phone: [facility] 04-03-2024 16:08-0400 Diastolic blood pressure 68 mm[Hg] Zaid Dolce DPM FACFAS Work Phone: [facility] 04-03-2024 16:08-0400 Heart rate 70 /min Zaid Dolce DPM FACFAS Work Phone: [facility] 04-03-2024 16:08-0400 Systolic blood pressure 121 mm[Hg] Zaid Dolce DPM FACFAS Work Phone: [facility] 12-30-2023 09:15-0400 Diastolic blood pressure 67 mm[Hg] MD Todd Dinero Work Phone: [facility] 12-30-2023 09:15-0400 Heart rate 73 /min MD Todd Dinero Work Phone: [facility] [place] 12-30-2023 09:15-0400 Respiratory rate 18 /min MD Todd Dinero Work Phone: [facility] [place] 12-30-2023 09:15-0400 SaO2% (BldA) [Mass fraction] 98 % MD Todd Dinero Work Phone: [facility] [place] 12-30-2023 09:15-0400 Systolic blood pressure 100 mm[Hg] MD Todd Dinero Work Phone: [facility] [place] 12-30-2023 06:31-0400 Body height 165.1 cm MD Todd Dinero Work Phone: [facility] [place] 12-30-2023 06:31-0400 Body temperature 97.9 [degF] MD Todd Dinero Work Phone: [facility] [place] 12-30-2023 06:31-0400 Body weight 56.5 kg MD Todd Dinero Work Phone: [facility] [place] 10-10-2020 21:15-0400 Diastolic blood pressure 57 mm[Hg] Estuardo Carter MD Work Phone: [employer] Work Phone: 10-10-2020 21:15-0400 Heart rate 92 /min Estuardo Carter MD Work Phone: [employer] Work Phone: 10-10-2020 21:15-0400 Respiratory rate 16 /min Estuardo Carter MD Work Phone: [employer] Work Phone: 10-10-2020 21:15-0400 SaO2% (BldA) [Mass fraction] 96 % Estuardo Carter MD Work Phone: [employer] Work Phone: 10-10-2020 21:15-0400 Systolic blood pressure 105 mm[Hg] Estuardo Carter MD Work Phone: [employer] Work Phone: 10-10-2020 19:12-0400 Body temperature 98.71 [degF] Estuardo Carter MD Work Phone: [employer] Work Phone: 10-10-2020 16:39-0400 Body weight 57.61 kg Estuardo Carter MD Work Phone: [employer] Work Phone: 05-12-2019 11:07-0500 Body temperature 98.6 [degF] [facility] [place] Comment on above: Performed By: #### VALLBG #### [facility] [address] [place] [id number] Encounters Encounter Date Encounter Type Care Provider Facility Start: 10-19-2024 End: 10-19-2024 ambulatory VINH TOVAR Facility:[facility] [place] Start: 10-16-2024 ambulatory VINH TOVAR Facility :[facility] Start: 10-12-2024 End: 10-12-2024 ambulatory Edna Monaco [facility] Work Phone: Start: 10-12-2024 End: 10-12-2024 Departed Referred Edna Monaco MD Work Phone: [facility] Start: 09-25-2024 End: 09-25-2024 Bamboo flowsheet Dmitri Asif DO Work Phone: [facility] Start: 09-25-2024 End: 09-25-2024 Bamboo flowsheet Dmitri Asif DO Work Phone: [facility] Start: 09-25-2024 End: 09-25-2024 Office outpatient visit 15 minutes Dmitri Asif DO Work Phone: [facility] Comment on above: Intrauterine device surveillance; Pelvic cramping Start: 09-25-2024 End: 09-25-2024 ambulatory DMITRI SAIF Not Available Start: 08-27-2024 End: 08-27-2024 ambulatory DMITRI ASIF Not Available Start: 08-24-2024 End: 08-24-2024 ambulatory URIEL GERMAN Not Available Start: 06-28-2024 End: 06-28-2024 Bamboo flowsheet Dmitri Asif DO Work Phone: [facility] Start: 06-28-2024 End: 06-29-2024 Bamboo flowsheet Dmitri Asif DO Work Phone: [facility] Start: 06-28-2024 End: 06-29-2024 External Result Encounter Dmitri Asif DO Work Phone: [facility] External Department Unsolicited Start: 06-28-2024 End: 06-28-2024 Office outpatient visit 15 minutes Dmitri Asif DO Work Phone: [facility] Comment on above: Vaginal discharge; History of ovarian cyst; Yeast infection; Encounter for surveillance of other contraceptive Start: 06-28-2024 End: 06-28-2024 ambulatory DMITRI ASIF Not Available Start: 05-17-2024 End: 05-17-2024 Office outpatient visit 25 minutes Zaid R Dolce DPM FACFAS Work Phone: [facility] Comment on above: Peroneal tendonitis of left lower extremity (Primary Dx); Other enthesopathy of left foot and ankle Start: 05-17-2024 End: 05-17-2024 ambulatory ZAID R DOLCE Not Available Start: 05-17-2024 End: 05-17-2024 Bamboo flowsheet Zaid [...] POD Start: 03-09-2024 End: 03-09-2024 ambulatory MD Todd Dinero Work Phone: [facility] Work Phone: Start: 03-09-2024 End: 03-09-2024 Patient encounter procedure MD Todd Dinero Work Phone: [facility] [address] Work Phone: Start: 02-20-2024 End: 02-20-2024 ambulatory MD Todd Dinero Work Phone: [facility] Work Phone: Start: 02-20-2024 End: 02-20-2024 Patient encounter procedure MD Todd Dinero Work Phone: [facility] [address] Work Phone: Start: 01-25-2024 End: 01-25-2024 ambulatory MD Todd Dinero Work Phone: [facility] Work Phone: Start: 01-25-2024 End: 01-25-2024 Patient encounter procedure MD Todd Dinero Work Phone: [facility] [address] Work Phone: Start: 01-09-2024 End: 01-09-2024 ambulatory MD Todd Dinero Work Phone: [facility] Work Phone: Start: 01-09-2024 End: 01-09-2024 Patient encounter procedure MD Todd Dinero Work Phone: [facility] [address] Work Phone: Start: 12-30-2023 End: 12-30-2023 Emergency department patient visit MD Todd Dinero Work Phone: [facility] Work Phone: Start: 08-17-2022 End: 08-18-[address] DMITRI GOLD . Facility:[facility] Start: 2022 Encounter for preprocedural laboratory examination DR DMITRI GOLD . [facility] Start: 07-02-2022 End: 07-02-[address] DMITRI GOLD . Facility:[facility] Start: 06-29-2022 End: 06-30-[address] DMITRI GOLD . Facility:[facility] Start: 06-29-2022 End: 06-30-2022 Encounter for preprocedural laboratory examination DR DMITRI GOLD . Facility:[facility] Start: 06-16-2022 End: 06-17-[address] DMITRI GOLD . Facility:[facility] Start: 06-11-2022 End: 06-11-[address] TODD DINERO . Facility:[facility] Start: 05-11-2022 End: 05-12-[address] DMITRI GOLD . Facility:[facility] Start: 03-04-2022 End: 03-04-[address] DMITRI GOLD . Facility:[facility] Start: 01-18-2022 End: 01-18-[address] TODD DINERO . Facility:[facility] Start: 10-10-2020 End: 10-10-2020 Emergency department patient visit ESTUARDO ACRTER [facility] Start: 10-10-2020 End: 10-10-2020 Emergency department patient visit Estuardo Carter MD Work Phone: [facility] Comment on above: Flank pain (Primary Dx); Dermoid cyst of right ovary; Post-op pain Procedures Date Procedure Procedure Detail Performing Clinician Start: 06-28-2024 RECURRENT VAGINITIS (HTRX) Dmitri Gold DO Work Phone: Start: 04-23-2024 IUD REMOVAL Dmitri Fazi o DO Work Phone: Start: 12-30-2023 X-ray of left ankle MD Todd Dinero Work Phone: Start: 12-30-2023 X-ray of left foot MD Shira Dinero Work Phone: Start: 10-10-2020 Ct abdomen & pelvis w/contrast material Estuardo Caretr MD Work Phone: Start: 10-10-2020 Comprehensive metabo lic panel Estuardo Carter MD Work Phone: Start: 10-10-2020 Urinalysis microscopic only Estuardo Carter MD Work Phone: Start: 10-10-2020 Urnls dip stick/tabl et rgnt auto w/o microscopy Estuardo Carter MD Work Phone: Plan of Treatment Date Care Activity Detail Author Start: 10-16-2024 End: 10-16-2024 Professional / ancillary services management 10/16/2024 10:00 AM EDT Ancillary Procedure [facility] [address] [place] [address] [facility] Start: 10-13-2024 Bacteria identified in Urine by Culture Urine Culture [facility] Start: 10-13-2024 Urine culture [facility] Start: 10-10-2024 End: 10-10-2024 Patient encounter procedure 10/10/2024 2:20 PM EDT Office Visit [facility] [address] [place] [address] Dmitri Gold DO [address] [place] [address] [facility] Start: 09-25-2024 End: 03-27-2025 US Pelvis transvaginal US pelvis transvaginal Imaging Routine Intrauterine device surveillance Pelvic cramping Expected: 09/25/2024, Expires: 03/27/2025 [facility] Work Phone: Comment on above: Expected: 09/25/2024 , Expires: 03/27/2025 Start: 09-25-2024 End: 09-25-2024 Patient encounter procedure 09/25/2024 9:10 AM EDT Office Visit [facility] [address] [place] [address] Dmitri Gold, DO [address], [facility] Arrived [facility] Comment on above: Arrived Start: 06-28-2024 End: 06-28-2024 Patient encounter procedure 06/28/2024 8:10 AM EST Office Visit [facility] [address] [place] [address] Dmitri Gold, DO [address], [facility] Arrived [facility] Comment on above: Arrived Start: 05-17-2024 End: 05-17-2024 Patient encounter procedure [facility] Comment on above: Arrived Start: 04-24-2024 End: 04-24-2024 Patient encounter procedure 04/24/2024 4:10 PM EST Office Visit [facility] [address] [place] [address] Zaid Morillo, DPM [facility] [address] [place] [address] [facility] Start: 04-23-2024 End: 04-23-2024 Patient encounter procedure 04/23/2024 8:30 AM EST Procedure Visit [facility] [address] [place] [address] Dmitri Gold, [address] [facility] [place] [address] [facility] Start: 04-18-2024 End: 04-18-2024 Patient encounter procedure 04/18/2024 3:40 PM EST Office Visit [facility] [address] [facility] [place] [address] Dmitri Gold, DO [address] [facility] [place] [address] [facility] Start: 04-17-2024 End: 04-17-2024 Patient encounter procedure 04/17/2024 3:40 PM EST Office Visit [facility] [address] [place] [address] Zaid Morillo, DPM FACFAS [address] [facility] [place] [address] [facility] Start: 02-11-2021 Influenza vaccination Flu vacc ine (Season Ended) [facility] [employer] Phone: Start: 2019 DTaP/Tdap/Td vaccine (1 - Tdap) DTaP/Tdap/Td vaccine (1 - Tdap) [facility] Phone: Start: 2016 COVID-19 Vaccine (1) COVID-19 Vaccin e (1) [facility] [employer] Phone: Start: 2016 Screening for Chlamy alda trachomatis Chlamydia screen [facility] [employer] Phone: Start: 2015 HIV screening HIV screen [facility] Work Phone: Start: 2011 HPV vaccine (1 - 2-d ose series) HPV vaccine (1 - 2-dose series) [facility] [employer] Phone: Start: 2001 Varicella vaccine (1 of 2 - 2-dose childhood series) Varicella vaccine (1 of 2 - 2-dose childhood series) [employer] Phone: Start: 2000 Hepatitis C screening Hepatitis C sc noemin [employer] Phone: CHLAMYDIA TRACHOMATI S (GENITO/STI) CHLAMYDIA TRACHOMATIS (GENITO/STI) Lab Routine Vaginal discharge Yeast infection Ordered: 06/28/2024 [facility] [employer] Comment on above: Ordered: 06/28/2024 Neisseria gonorrhoea e DNA [Presence] in Unspecified specimen by HALLEY with probe detection Neisseria gonorrhea DNA probe, direct Lab Routine Vaginal discharge Yeast infection Ordered: 06/28/2024 [facility] Comment on above: Ordered: 06/28/2024 Oxygen therapy [[facility] Data Set] Initiate Oxygen Therapy Protocol Respiratory Care Routine Daily until discontinued starting 10/10/2020 [employer] Phone: Comment on above: Daily until disconti nued starting 10/10/2020 Patient Education Foot Sprain ED [facility] Work Phone: Patient referral [facility] Work Phone: Phase I & II - meter ed glucose Phase I & II - metered glucose Point of Care Testing Routine As Needed until discontinued starting 10/10/2020 [employer] Phone: Comment on above: As Needed until disc ontinued starting 10/10/2020 SURESWAB(R) ADVANCED VAGINITIS PLUS, TMA SURESWAB(R) ADVANCED VAGINITIS PLUS, TMA Pathology and Cytology Routine Vaginal discharge Yeast infection Ordered: 06/28/2024 [facility] [employer] Work Phone: Comment on above: Ordered: 06/28/2024 Surgical Pathology Surgical Path ology Lab Routine Release Upon Ordering for 1 Occurrences starting 10/10/2020 [employer] Phone: Comment on above: Release Upon Orderin g for 1 Occurrences starting 10/10/2020 Payers Date Payer Category Payer Unknown [id number] 2024 Worker's Compensation [id number] 2023 Worker's Compensation [id number] 2023 Self-pay [id number] 2023 Unknown [id number] 2022 Private Health Insurance [id number] 2022 Private Health Insurance [id number] 2022 Private Health Insurance [id number] 2000 Unknown [id number] 2.16.840.1.265254.3.579.2. 593 2000 Unknown [id number] 2.16.840.1.181619.3.579.2. 593 2000 Unknown [id number] 2.16.840.1.150021.3.579.2. 593 2000 Unknown [id number] 2.16.840.1.881886.3.579.2. 593 2000 Unknown [id number] 2.16.840.1.685535.3.579.2. 593 2000 Unknown [id number] 2.16.840.1.053391.3.579.2. 593 2000 Unknown [id number] 2.16.840.1.603801.3.579.2. 593 2000 Unknown [id number] 2.16.840.1.176423.3.579.2. 593 2000 Unknown [id number] 2.16.840.1.183202.3.579.2. 1259 2000 Unknown [id number] 2.16.840.1.960323.3.579.2. 1259 2000 Unknown [id number] 2.16.840.1.123445.3.579.2. 1258 2000 Unknown [id number] 2.16.840.1.961995.3.579.2. 1258 2000 Unknown [id number] 2.16.840.1.199437.3.579.2. 1258 2000 Unknown [id number] 2.16.840.1.535172.3.579.2. 1258 2000 Unknown [id number] 2.16.840.1.380874.3.579.2. 1258 2000 Unknown [id number] 2.16.840.1.471544.3.579.2. 1258 2000 Unknown [id number] 2.16.840.1.177089.3.579.2. 1258 2000 Unknown [id number] 2.16.840.1.787753.3.579.2. 1258 2000 Unknown [id number] 2.16.840.1.164720.3.579.2. 1258 2000 Unknown [id number] 2.16.840.1.853341.3.579.2. 1258 2000 Unknown [id number] 2.16.840.1.114998.3.579.2. 1258 2000 Unknown [id number] 2.16.840.1.892563.3.579.2. 1258 2000 Unknown [id number] 2.16.840.1.336309.3.579.2. 1258 2000 Unknown [id number] 2.16.840.1.598251.3.579.2. 1258 2000 Unknown [id number] 2.16.840.1.310744.3.579.2. 1258 2000 Unknown [id number] 2.16.840.1.898957.3.579.2. 1258 2000 Unknown [id number] 2.16.840.1.898841.3.579.2. 727 1959 Unknown [id number] Unknown [employer] [id number] Unknown [id number] 2.16.840.1.363022.3.579.2. 531 Unknown [id number] 2.16.840.1.654862.3.579.2. 531 Unknown [id number] 2.16.840.1.297227.3.579.2. 531 Unknown [id number] 2.16.840.1.396647.3.579.2. 531 Unknown [id number] 2.16.840.1.283850.3.579.2. 531 Unknown [id number] 2.16.840.1.838518.3.579.2. 531 Unknown [id number] 2.16.840.1.218945.3.579.2. 531 Worker's Compensation Industrial Self Ins [facility] [id number] Social History Date Type Detail Facility Start: 10-10-2020 End: 12-30-2023 Tobacco smoking status WYIS Never smoker [facility] Start: 10-10-2020 End: 04-03-2024 Tobacco use and exposure Never used [employer] Start: 10-10-2020 Alcohol intake Lifetime non-d tyler (finding) [employer] Work Phone: Start: 10-10-2020 History SDOH Alcohol Frequency 1 [employer] Phone: Sex Assigned At Not on file [employer] Phone: Exposure to SARS-CoV -2 (event) Not sure [employer] Start: 2000 Sex Assigned At Female F [facility] Tobacco smoking stat [facility] Tobacco smoking consumption unknown [facility] Start: 02-08-2023 Gender identity Identifies as female gender (finding) [facility] Start: 04-03-2024 End: 08-24-2024 Sexual orientation Not on file [facility] Start: 04-03-2024 End: 06-28-2024 Alcoholic beverage intake Defer [facility] Start: 04-03-2024 End: 08-24-2024 History of Social function [facility] Start: 08-27-2024 End: 09-25-2024 Alcoholic beverage intake Current drinker of alcohol (finding) [facility] Start: 08-24-2024 Alcohol Comment social [facility] Start: 10-14-2024 Sex Female (finding) [facility] 10-10-2020 to 10-19-2024 Edita Romo, PIANO BUILDER - 09/25/2024 9:10 AM Brenda Lopez, PIANO BUILDER - 06/28/2024 8:10 AM Ernestina Morillo DPM [facility] - 05/17/2024 4:20 PM Ernestina Morillo DPM FAC[facility]AS - 04/24/2024 4:10 PM ESTInstructions Note Date & Type Note Facility 10-19-2024 Note Patient Education Gastroenterology Constipation, Adult Constipation is when a person has fewer than three bowel movements in a week, has difficulty having a bowel movement, or has stools (feces) that are dry, hard, or larger than normal. Constipation may be caused by an underlying condition. It may become worse with age if a person takes certain medicines and does not take in enough fluids. Follow these instructions at home: Eating and drinking ??? Eat foods that have a lot of fiber, such as beans, whole grains, and fresh fruits and vegetables. ??? Limit foods that are low in fiber and high in fat and processed sugars, such as fried or sweet foods. These include upper sorbian fries, hamburgers, cookies, candies, and soda. ??? Drink enough fluid to keep your urine pale yellow. General instructions ??? Exercise regularly or as told by your health care provider. Try to do 150 minutes of moderate exercise each week. ??? Use the bathroom when you have the urge to go. Do not hold it in. ??? Take mxzt-arc-muqutad and prescription medicines only as told by your health care provider. This includes any fiber supplements. ??? During bowel movements: ? Practice deep breathing while relaxing the lower abdomen. ? Practice pelvic floor relaxation. ??? Watch your condition for any changes. Let your health care provider know about them. ??? Keep all follow-up visits as told by your health care provider. This is important. Contact a health care provider if: ??? You have pain that gets worse. ??? You have a fever. ??? You do not have a bowel movement after 4 days. ??? You vomit. ??? You are not hungry or you lose weight. ??? You are bleeding from the opening between the buttocks (anus). ??? You have thin, pencil-like stools. Get help right away if: ??? You have a fever and your symptoms suddenly get worse. ??? You leak stool or have blood in your stool. ??? Your abdomen is bloated. ??? You have severe pain in your abdomen. ??? You feel dizzy or you faint. Summary ??? Constipation is when a person has fewer than three bowel movements in a week, has difficulty having a bowel movement, or has stools (feces) that are dry, hard, or larger than normal. ??? Eat foods that have a lot of fiber, such as beans, whole grains, and fresh fruits and vegetables. ??? Drink enough fluid to keep your urine pale yellow. ??? Take nzax-rkq-rxwlezk and prescription medicines only as told by your health care provider. This includes any fiber supplements. This information is not intended to replace advice given to you by your health care provider. Make sure you discuss any questions you have with your health care provider. Document Revised: 04/13/2023 Document Reviewed: 04/13/2023 [employer] Patient Education ? 2023 [employer]. Urology Kidney Stones Kidney stones are rock-like masses that form inside of the kidneys. Kidneys are organs that make pee (urine). A kidney stone may move into other parts of the urinary tract, including: ??? The tubes that connect the kidneys to the bladder (ureters). ??? The bladder. ??? The tube that carries urine out of the body (urethra). Kidney stones can cause very bad pain and can block the flow of pee. The stone usually leaves your body through your pee. A doctor may need to take out the stone. What are the causes? Kidney stones may be caused by: ??? Too much calcium in the body. This may be caused by too much parathyroid hormone in the blood. ??? Uric acid crystals in the bladder. The body makes uric acid when you eat certain foods. ??? Narrowing of one or both of the ureters. ??? A kidney blockage that you were born with. ??? Past surgery on the kidney or the ureters. What increases the risk? You are more likely to develop this condition if: ??? You have had a kidney stone in the past. ??? Other people in your family have had kidney stones. ??? You do not drink enough water. ??? You eat a diet that is high in protein, salt (sodium), or sugar. ??? You are very overweight (obese). What are the signs or symptoms? Symptoms of a kidney stone may include: ??? Pain in the side of the belly, right below the ribs. Pain usually spreads to the groin. ??? Needing to pee often or right away. ??? Pain when peeing. ??? Blood in your pee. ??? Feeling like you may vomit (nauseous). ??? Vomiting. ??? Fever and chills. How is this treated? Treatment depends on the size, location, and makeup of the kidney stones. The stones will often pass out of the body when you pee. You may need to: ??? Drink more fluid to help pass the stone. ? In some cases, you may be given fluids through an IV tube at the hospital. ??? Take medicine for pain. ??? Change your diet to help keep kidney stones from coming back. Sometimes, you may need: ??? A procedure to break up kidney stones using a beam of light (laser) or shock waves. ??? Beverley (more content not included)... [facility] 09-25-2024 History of Present illness Narrative Reason for Appointment: Patient ID: Fadia Lan is a 24 y.o. female who presents for String check Patient presents today for Acute Visit. MEDICATIONS Current Outpatient Medications Medication Instructions clotrimazole-betamethasone (Lotrisone) cream Apply to left ear twice daily for 10 days ALLERGIES Allergies Allergen Reactions Other NO LIQUID MEDS Penicillin G Swelling and Unknown PROBLEMS Active Ambulatory Problems Diagnosis Date Noted Vaginal discharge 06/28/2024 History of ovarian cyst 06/28/2024 Chronic sinusitis 03/22/2019 Cyst of left ovary 08/22/2024 Right ovarian cyst 08/22/2024 Elevated troponin 05/13/2019 Left lower quadrant abdominal pain 08/22/2024 Other chest pain 05/13/2019 Pelvic pain 08/22/2024 Postural orthostatic tachycardia syndrome 03/22/2019 Seizure-like activity (CMS/HCC) 05/12/2019 Sequelae of unspecified infectious and parasitic disease 03/22/2019 Syncope 03/16/2019 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 [...] Negative. Respiratory: Negative. Cardiovascular: Negative. Gastrointestinal: Negative. Genitourinary: Negative. Musculoskeletal: Negative. Skin: Negative. Neurological: Negative. All [...] nursing note reviewed. Exam conducted with a police communications dispatcher present. Vitals: Estimated body mass index is 20.77 kg/m as calculated from the following: Height as of 08/24/24: 5' 5 . Weight as of this encounter: 124 lb 12.8 oz. BP: 106/68 Patient's last menstrual period was 08/26/2024. ASSESSMENT & PLAN ICD-10-CM 1. Intrauterine device surveillance Z30.431 IUD String Check: Patient is doing well but has some complaints of bleeding and cramping following IUD placement. Pt given ultrasound order to check for placement and view for previous ovarian cysts. Follow Up: Patient is to return to the office for annual exam unless needed otherwise. Documented by Edita Romo LPN on behalf of: Dmitri Gold DO documented in this encounter [facility] 06-28-2024 History of Present illness Narrative Reason [...] nursing note reviewed. Exam conducted with a police communications dispatcher present. Vitals: Estimated body mass index is [...] to possible cyst formation. Patient will start Junel and return to clinic in 12 weeks for annual appointment. Patient voiced she has history of ovarian cyst and would like to hold off on ultrasound and will call back to office if she would like to have ordered. Documented by Christine Lopez LPN on behalf of: Dmitri Gold DO documented in this encounter [facility] 05-17-2024 History of Present illness Narrative Patient: Fadia Lan : 2000 PCP: Todd Dinero MD SUBJECTIVE This is a 23 [...] well. BRISEIDA Madrid documented in this encounter [facility] 04-24-2024 History of Present illness Narrative Patient: Fadia Lan : 2000 PCP: Todd Dinero MD SUBJECTIVE This is a 23 [...] weeks. BRISEIDA Madrid documented in this encounter [facility] 04-23-2024 History of Present illness Narrative [...] nursing note reviewed. Exam conducted with a police communications dispatcher present. Vitals: Estimated body mass index is [...] Dmitri Gold DO documented in this encounter [facility] 04-18-2024 History of Present illness Narrative [...] nursing note reviewed. Exam conducted with a police communications dispatcher present. Vitals: Estimated body mass index is [...] Dmitri Gold DO documented in this encounter [facility] 04-03-2024 History of Present illness Narrative Patient: Fadia Lan : 2000 PCP: Todd Dinero MD SUBJECTIVE This is a 23 [...] is full without any type of palpable [place] she has full plantar flexion without pain [...] going to return in 2 weeks. Zaid Morillo DPM [facility]AC[facility]AS documented in this encounter [facility] 07-02-2022 Note OPERATIVE NOTE OPERATION DATE: 07/02/2022 PROCEDURE: Diagnostic laparoscopy with left ovarian cystectomy and lysis of bowel adhesions from the pelvic side wall. PREOPERATIVE DIAGNOSIS: Pelvic pain, left ovarian cyst. POSTOPERATIVE DIAGNOSIS: Pelvic pain, left ovarian cyst, bowel adhesions to the left pelvic side wall. ANESTHESIA: General. SURGEON: Dmitri Gold D.O. [employer]ERIAL HANDLING EQUIPMENT STEVEDORE: YASEMIN Stauffer URINE OUTPUT: Yellow and clear. [...] to Recovery Room in stable condition. [facility] 10-10-2020 History of Present illness Narrative Discharge [...] from the procedure. documented in this encounter [employer] Phone: 10-10-2020 Hospital Discharge instructions Leon Leon [...] [address] Rao -- [place] office [phone] [place] office [phone] documented in this encounter [employer] Phone: Evaluation note Diagnosis Flank pain- Primary Abdominal pain, unspecified site Dermoid cyst of right ovary Post-op pain Other acute postoperative pain Pelvic pain Right ovarian cyst Other and unspecified ovarian cyst documented in this encounter [employer] Phone: evaluation noteNo assessment information available [facility] Work Phone: Evaluation note* Diagnosis Contusion of left foot, initial encounter- Primary Left ankle instability Other joint derangement, not elsewhere classified, ankle and foot Peroneal tendonitis of left lower extremity Other enthesopathy of left foot and ankle Ankle contracture, left Sprain of left foot, initial encounter documented in this encounter [facility]* Diagnosis Encounter for routine checking of intrauterine contraceptive device (IUD) Left sided abdominal pain Abdominal pain, unspecified site documented [facility] this encounter [facility] Diagnosis Encounter for IUD removal documented in this encounter [facility]* Diagnosis Left ankle instability- Primary Other joint derangement, not elsewhere classified, ankle and foot Peroneal tendonitis of left lower extremity documented in this encounter [facility]* Diagnosis Peroneal tendonitis of left lower extremity- Primary Other enthesopathy of left foot and ankle [facility] Diagnosis Vaginal discharge Leukorrhea, not specified as infective History of ovarian cyst Personal history of other genital system and obstetric disorders Yeast infection Encounter for surveillance of other contraceptive [facility] Diagnosis Intrauterine device surveillance Pelvic cramping documented in this encounter [facility] Summary Purpose Family History No Family History Records FoundNo Family History Records FoundNo Family History Records FoundNo Family History Records FoundNo Family History Records FoundNo Family History Records Found Advance Directives No Advanced Directives Records Found Advance Directive Response Recorded Date/ Time Advance Directives No January 14, 019 1:30pm Hospital Course Note HNO ID: [id number] Author: Alison Morales Service: General Internal Medicine [...] Complaint ankle injury S93.602A S93.602A S93.602A S93.602A Chief Complaint Admit Date Unknown October 12, 2024 12:20p m Additional Source Comments INFORMATION SOURCE (unrecogn ized section and content) DATE CREATED AUTHOR 08/14/2019 [facility] DATE CREATED AUTHOR AUTHOR'S ORGANIZ ATION 10/15/2020 [facility] DATE CREATED AUTHOR AUTHOR'S ORGANIZ ATION 08/26/2022 [facility] DATE CREATED AUTHOR AUTHOR'S ORGANIZ ATION 09/26/2024 [facility] EPIC DATE CREATED AUTHOR AUTHOR'S ORGANIZ ATION 10/21/2024 [facility] DATE CREATED AUTHOR AUTHOR'S ORGANIZ ATION 10/23/2024 [facility] Reason for Visit (unrecogniz ed section and content) Reason Comments Flank Pain pain upon movement; left sided Reason Comments Foot Pain *BWC* LT foot with t endonosis Reason Comments Contraception Pelvic Pain Reason Comments Contraception Reason Comments Foot Problem F/U LT tendinitis in j x1 Reason Comments Ankle Injury *BWC* F/U LT ankle c ontusion Reason Comments Vaginitis/Bacterial Vaginosis Reason Comments String check Ordered Prescriptions (unrec ognized section and content) [...] content) Team Status: Active Member Role Status Dates Todd Dinero MD Primary Care Provider Active Team Status: Inactive Member Role Status Dates Todd Dinero MD Primary Care Provider Active Start: December 30, 2023 End: December 30, 2023 Karson Manzanares MD Emergency Provider Active St art: December 30, 2023 End: December 30, 2023 Team Status: Inactive Member Role Status Dates Todd Dinero MD Primary Care Provider Active Start: [...] Team Status: Inactive Member Role Status Dates Todd Dinero MD Primary Care Provider Active Start: February 20, 2024 End: February 20, 2024 Major Garces Jr, DO Attending Provider Active S tart: February 20, 2024 End: February 20, 2024 Team Status: Inactive Member Role Status Dates Todd Dinero MD Primary Care Provider Active Start: March 09, 2024 End: March 09, 2024 Major Garces Jr, DO Attending Provider Active S tart: March 09, 2024 End: March 09, 2024 Sales Account Associate Relationship Specialty Start Date End Date Todd Dinero MD [address] [place] [address] PCP - General Family Medicine 02/15/23 Sales Account Associate Relationship Specialty Start Date End Date Todd Dinero MD [address] [phone] PCP - General Family Medicine 02/15/23 Sales Account Associate Relationship Specialty Start Date End Date Todd Dinero MD [address] [place] [address] PCP - General Family Medicine 02/15/23 Sales Account Associate Relationship Specialty Start Date End Date Todd Dinero MD [address] [place] [address] PCP - General Family Medicine 02/15/23 Sales Account Associate Relationship Specialty Start Date End Date Todd Dinero MD [address] [place] [address] PCP - General Family Medicine 02/15/23 Sales Account Associate Relationship Specialty Start Date End Date Todd Dinero MD [address] [facility] [place] [address] PCP - General Family Medicine 02/15/23 Sales Account Associate Relationship Specialty Start Date End Date Todd Dinero MD [address] [facility] [place] [address] PCP - General Family Medicine 02/15/23 Sales Account Associate Relationship Specialty Start Date End Date Todd Dinero MD [address] [place] [address] PCP - General Family Medicine 02/15/23 Sales Account Associate Relationship Specialty Start Date End Date Todd Dinero MD [address] [place] [address] PCP - General Family Medicine 02/15/23 Sales Account Associate Relationship Specialty Start Date End Date Todd Dinero MD [address] [place] [address] PCP - General Family Medicine 02/15/23 Team Status: Inactive Member Role Status Dates Edna Monaco MD Attending Provider Active Sta rt: October 12, 2024 End: October 12, 2024 Goals (unrecognized section and content) Goals may [...] BE BASED ON THE PRIMARY CLINICAL RECORDS. [facility]. provides no warranty or guarantee of the accuracy or completeness of information in this document.
== END 2025-02-14 10:47 | disposition home or self-care (01) ==
LOC: US 10:48
PROVIDERS: PCP Family Medicine; Visit Provider Obstetrics & Gynecology
DX: R10.2 Pelvic and perineal pain (principal); Z30.431 Encounter for routine checking of intrauterine contraceptive device
CPT/HCPCS: 76830

== ENCOUNTER 2025-04-24 17:45 | Outpatient (OUT) | payer OTHER, SELFPAY ==
--- OUTSIDE RECORDS SUMMARY | 2024-01-25 09:30 | XMS_ITS ---
Author Organization [facility] [place] Address [address] [place] [address] Care Team Providers Care Human Resources Manager Manufacturing Name Role Phone Dakotah José Primary Care Provider [phone] REASON FOR VISIT work pe Encounters Encounter Location Date Provider Diagnosis [facility] [address] [place] [address] 01/25/2024 Dakotah José Plan Of Treatment No Information Progress Notes * Fadia LAN JDOB:2000 (24 yo F)Acc No.[id number]:01/25/2024 UNLOCKED PROGRESS NOTE Progress Note Patient: Fadia ARIZMENDI :?Todd José (SHEYLA), MDDOB:2000???Age: 23 Y???Sex:FemaleDate:4Phone:[phone]:[address] [phone] Subjective: * Chief Complaints: * 1 . Work pe. * Medical History: Objective: * Vitals: Assessment: Plan: * Treatment: * * Electronic signature of Dakotah José MD, [id number] on 04/24/2025 at 05:53 PM EST Sign off status: PendingVisit Status:?CANCPHONE (Cancelled Phone) * Provider: Shira José MD (TTC) Date: 0 01/25/2024 Generated for Printing/Faxing/eTransmitting on:?04/24/2025 05:53 PM EST
--- OUTSIDE RECORDS SUMMARY | 2025-02-25 08:15 | XMS_ITS | Continuity of Care Document ---
Author Organization [facility] Address [address] [place] [address] Phone Care Team Providers Care Pharmacy Resident Name Role Phone Ramin ORDAZ, Evgeny Unavailable Unavailable Allergies, Adverse Reactions, Alerts Substance Reaction Status Criticality Penicillins Active No Information Procedures Procedure Date Intraoral-periapical 1st Film Bitewig-single Film Oral Hygiene Instruction Limited Oral Eval Advance Directives Directive Yes / No Effective Date File Name No Information Encounters Encounter Description Practice Location Reason(s) For Visit Diagnoses Date Provider Providers Copied on Encounter [facility], [address] [place] [address], [id number], [place] tel:[phone] [facility] (chief complaint) Body mass index [BMI] 20.0-20.9, adultEncounter for screening for dental disorders Ramin ORDAZ Evgeny. [address] [place] [address], [id number] , [place]. tel:[phone] Family History Family Member Type Diagnosis Age At Onset No Information Payers Payer name Insurance type Covered green party ID Zacharyhakan perezoleg(s) Shira Cigna [id number] Social History Type Description Quantity Date Captured Comments Alcohol Use Details Unknown Caffeine Use Details Unknown Tobacco Use Status Current non-smoker Smoking Status Never smoker Non-Smoking Tobacco Use Details : No Details Available : No Details Available [id number] SexFemale Vital Signs Date / Time: Height Weight BMI Pulse Rate Blood Pressure Temperature Respiratory Rate Body Surface Area Head Circumference Head Circ. Percentile Wt./Kamlesh. Percentile BMI percentile Pulse Ox Inhaled Ox 1:39 PM 65.00 in 56.699 kg (125.00 lbs) 20.8 0 kg/m eter (2) 76 /min 109/50 mm[Hg] 98.60 F 1.61 meter(2) Chief Complaint And Reason For Visit From encounter dated '02/25/2025 13:15'. ER (chief complaint) Reason For Referral Reason For Referral No Information Plan Of Treatment Date Type Action Status Goal PRAPARE ASSESSMENT. Due on S ep due Goal Unhealthy drug use screening . Due on due Goal Hepatitis C screening. Due o n due Goal Tdap Vaccine. Due on 2024 due Goal Tdap. Due on due Goal Influenza vaccine. Due on Se p due Goal Depression screening. Due on due Goal RLP. Due on due Goal PAP. Due on due Goal Dietary management education , guidance, and counseling completed History Of Present Illness Encounter Date Complaint History Of Prese nt Illness ER Functional Status Date Functional Assessmen t No Information Instructions Date Instruction Additional Infor ashlie Dietary management e ducation, guidance, and counseling Related to Body mass index [BMI] 20.0-20.9, adult Assessments Type Assessment Date assessment Body mass index [BMI] 20.0-20.9, adult Patient Care Teams Name Effective Dates (start - stop) Status Members No Information
--- OUTSIDE RECORDS SUMMARY | 2025-04-23 03:00 | XMS_ITS ---
Author Organization [facility] [place] Address [address] [place] [address] Care Team Providers Care Screw Machine Adjuster Automatic Name Role Phone Dakotah José Primary Care Provider Allergies Allergen (clinical drug ingredient) Drug/Non Drug Allergy documented on EMR Reaction Allergy Type Onset Date Status amoxicillin Amoxicillin Unknown Drug Allergy ActivecefdinirCefdinirUnknownDrug AllergyActiveprednisonepredniSONEGI ISSUES- vomitingDrug AllergyActivePenicillinSwellingDrug AllergyActive REASON FOR VISIT talk about health Medications Medication SIG (Take, Route, Frequency, Duration) Notes Start Date End Date Status Meloxicam 15 MG 1 tablet Orally Once a day; Dura tion: 30 days 5Active Social History Tobacco Use: Social History Observation Description Date Details (start date - stop date) Never Smoker NA - NA Tobacco Use/Smoking Question Answer Notes Patient is a nonsmoker AUDIT-C (Standard) Question Answer Notes Did you have a drink containing alcohol in the p ast year? No Jysnlu5RemrnflqnuyzzhWtuzkwjb Problems Problem Type SNOMED Code ICD Code Onset Dates Problem Status W/U Status Risk Notes Problem Irritable bowel (87007778) Irritable basil l (K58.9) ActiveconfirmedProblemArthralgia of the ankle and/or foot (624915775)Ankle pain, left (M25.572)Activeconfirmed Vital Signs Weight 140.0 lbs 04/23/2025 Height 65 in 04/23/2025 Blood pressure systolic 102 mm Hg 04/23/20 25 Blood pressure diastolic 62 mm Hg 025 BMI 23.29 kg/m2 04/23/2025 Encounters Encounter Location Date Provider Diagnosis [facility] [address] [place] [address] 04/23/2025 Dakotah José Irritable bowel K58. 9 and Ankle pain, left M25.572 Assessments Encounter Date Diagnosis (ICD Code) Assessment Notes Treatment Notes Treatment Clinical Notes Section Notes 04/23/2025 Irritable bowel (ICD-10 - K58.9) 04/23/2025nkle pain, left (ICD-10 - M25.572) Plan Of Treatment Medication Medication Name Sig Start Date Stop Date Notes Meloxicam 15 MG 1 tablet Orally Once a day; Duration: 30 days 04/23/2025 Progress Notes * VONNIE Fadia AshtonDOB:2000 (24 yo F)Acc No.[id number]:04/23/2025 Progress Note Patient: Fadia ARIZMENDI :?Todd MarichuyGrayson José ([facility]), MDDOB:2000???Age: 24 Y???Sex:FemaleDate:04/23/2025Phone:[phone]:[address] [facility]Check In:07:58 AM ESTCheck Out:08:22 AM EST Subjective: * Chief Complaints: * T alk about health * HPI: ???General:?Discussed gut health feels bloated a lot - no issues with constipation some more with dairy -?? no FH gallbladder - not necc worse with greasy foods Left achilles pain ans feels weak. * Active Problem List R19.7 Diarrhea Modified On:11/11/2022/U Status:wtjptcezbQ95.9Acute bronchitis Modified On:11/11/2022U Status:peiwmfoznZ27.00Well adult Modified On:11/11/2022U Status:pfvucjmnqI69.10Allergic conjunctivitis Modified On:11/11/2022U Status:vpgwctywkG65.2Nausea and vomiting Modified On:11/11/2022U Status:ukdotjmglX51.9Upper respiratory infection Modified On:11/11/2022U Status:cmcssliogF34.7Poison suzanna Modified On:11/11/2022 Status:urdmciyywP98.00Impetigo Modified On:11/11/2022 Status:tvlfkpegfH06.5Sialolithiasis Modified On:11/11/2022 Status:cekkkwluxU40.8Other specified bullous disorders Modified On:11/11/2022 Status:ytjzwjppeC26.40XSAllergy, unspecified, sequela Modified On:11/11/2022 Status:faxfxqlugQ71.2Neck pain Modified On:11/11/2022 Status:eoeioiqqsR96.9Gastroenteritis Modified On:11/11/2022 Status:evixwiyzgW91.2Allergic rhinitis, seasonal Modified On:11/11/2022 Status:uclpfvxdvV64.09Otalgia Modified On:11/11/2022 Status:qhbjmxjnrP55Beuh aches Modified On:11/11/2022 Status:ymjtmxgfwP90.5H7ASnrxugbpat with loss of consciousness <= 30 min Modified On:11/11/2022 Status:cilletkeeQ12.129Well child visit Modified On:11/11/2022 Status:ulcpwfzyxS90.0Dermoid cyst of right ovary Modified On:11/11/2022 Status:rsjlgtvujU18.643Pain, hand joint Modified On:11/11/2022 Status:mesxsnherW77.509AUnsp fracture of the lower end of unsp radius, init Modified On:11/11/2022 Status:wcvtnupnlL10.9Contact dermatitis Modified On:11/11/2022 Status:jktabbjoiN64.9Upper respiratory infection, viral Modified On:11/11/2022 Status:yjugqowkzY79.1COVID-19 virus infection Modified On:11/11/2022 Status:icxyllrvqK32.90Acute sinus infection Modified On:08/25/2023 Status:lcostevolU97.292Other ovarian cyst, left side Modified On:11/03/2022 Status:xoijkjvnfM83.8POTS (postural orthostatic tachycardia syndrome) Modified On:12/17/2022W/U Status:hwnsyqvdyR14Vrnyzco Modified On:07/01/2023/U Status:xowehtvwoW59.90Otitis externa Modified On:07/04/2024/U Status:sbxirirxeD34.XXXAInsect bite Modified On:10/19/2024/U Status:qggshwysrY09.9Irritable bowel Modified On:04/23/2025/U Status:igthntsvhQ44.572Ankle pain, left Modified On:04/23/2025/U Status:confirmed * Medical History: * Surgical History: C yst Removal * Hospitalization/Major Diagno stic Procedure: D enies Past Hospitalization * Family History: F ather: alive. M other: alive. B rother(s): alive. S ister(s): alive. 1 brother(s) , 1 sister(s) - healthy. . * Social History: ???Tobacco Use:?Tobacco Use/Smoking?Patient is a?nonsmoker ???Drug/Alcohol:?AUDIT-C (Standard)?Did you have a drink containing alcohol in the past year??No ?Points?0 ?Interpretation?Negative * Medications: D iscontinuedCipro(Ciprofloxacin HCl) 500 MG Tablet 1 tablet Orally every 12 hrs Cleocin(Clindamycin Phosphate) 2 % Cream 1 applicatorful at bedtime Vaginal Once a day Doxycycline Monohydrate 100 MG Capsule 1 capsule Orally bid Mupirocin 2 % Ointment 1 application Externally Twice a day Ventolin HFA(Albuterol Sulfate HFA) 108 (90 Base) MCG/ACT Aerosol Solution 1 puff as needed Inhalation every 4 hrs , Notes to Pharmacist: PRNMedication List reviewed and reconciled with the patientDiscontinued Cipro(Ciprofloxacin HCl) 500 MG Tablet 1 tablet Orally every 12 hrs Discontinued Cleocin(Clindamycin Phosphate) 2 % Cream 1 applicatorful at bedtime Vaginal Once a day Discontinued Doxycycline Monohydrate 100 MG Capsule 1 capsule Orally bid Discontinued Mupirocin 2 % Ointment 1 application Externally Twice a day Discontinued Ventolin HFA(Albuterol Sulfate HFA) 108 (90 Base) MCG/ACT Aerosol Solution 1 puff as needed Inhalation every 4 hrs , Notes to Pharmacist: PRNMedication List reviewed and reconciled with the patient * Allergies: P enicillin: Swelling - Allergy - Criticality HighCefdinir - Criticality HighAmoxicillinpredniSONE: GI ISSUES- vomiting - Allergyno[Allergies Verified] Objective: * Vitals: W t:140.0lbs, Ht: 65 in, BP:102/62mm Hg, BMI:23.29Index, Ht-cm: 165.1 cm, Wt-k.5 kg. * Examination: ???Lower Extremities: ???Left achilles tendernss and tenderns sthorughtout ankle - but no laxity. Assessment: * Assessment: 1.?Ankle pain, left - M25.572 (Primary)???2.?Irritable bowel - K58.9? ? Plan: * Treatment: Start Meloxicam Tablet, 15 MG, 1 tablet, Orally, Once a day, 30 days, 30 Tablet, Refills 11.? * Procedure Codes: * Preventive Medicine: ??Screenings/Counseling:?BMI ACTION PLAN?Above Normal BMI Follow-up?Dietary management education, guidance, and counseling * * Sign off status: CompletedVisit Status:?CHK (Check Out) true * Provider: Shira José (TTC)MD Date: 06/23/2024 Generated for Printing/Faxing/eTransmitting on:?04/24/2025 05:52 PM EST History and Physical Notes * HPI (History of Present Illness) CategorySub-CategoryDetailNotesCategory NotesGeneral Discussed gut health feels bloated a lot - no issues with constipation some more with dairy - no FH gallbladder - not necc worse with greasy foods Left achilles pain ans feels weak Examination CategorySub-CategoryDetailNotesCategory NotesLower ExtremitiesLeft achilles tendernss and tenderns sthorughtout ankle - but no laxity
--- OUTSIDE RECORDS SUMMARY | 2025-04-24 11:07 | XMS_ITS ---
Author Organization [facility] in [place] Address [address] [place] [address] Care Team Providers Care Traffic Control Technician Name Role Phone Dakotah José Primary Care Provider [phone] REASON FOR VISIT Ankle Update Encounters Encounter Location Date Provider Diagnosis [facility] [address] [place] [address] 04/24/2025 Dakotah José Ankle pain, left M25.572 Assessments Encounter Date Diagnosis (ICD Code) Assessment Notes Treatment Notes Treatment Clinical Notes Section Notes 04/24/2025 Ankle pain, left (ICD-10 - M25.5 72) Plan Of Treatment Pending Test Test Name Order Date XR ANKLE LT 2V 04/24/2025 Progress Notes * Fadia LANDOB:2000 (24 yo F)Acc No.[id number]:04/24/2025 Patient:?VONNIE Fadia Ashton :2000???Age:24 Y???Sex:FemalePhone:[phone] Address:[address] [place] [address] Subjective: * Chief Complaints: * A nkle Update * Medical History: * Surgical History: * Hospitalization/Major Diagno stic Procedure: * Medications: Objective: * Vitals: * Physical Examination: ??? Assessment: * Assessment: 1.?Ankle pain, left - M25.572 (Primary)??? Plan: * Treatment: ?Imaging: XR ANKLE LT 2V * Procedure Codes: * true * Date:?Generated for Printing/Faxing/eTransmitting on:?04/24/2025 05:52 PM EST
--- OUTSIDE RECORDS SUMMARY | 2025-04-24 17:52 | XMS_ITS | Patient Health Record ---
Author Organization [facility] [place] Address [address] [place] [address] Care Team Providers Care Staff Scientist Name Role Phone Dakotah José Primary Care Provider Allergies Allergen (clinical drug ingredient) Drug/Non Drug Allergy documented on EMR Reaction Allergy Type Onset Date Status amoxicillin Amoxicillin Unknown Drug Allergy ActivecefdinirCefdinirUnknownDrug AllergyActiveprednisonepredniSONEGI ISSUES- vomitingDrug AllergyActivePenicillinSwellingDrug AllergyActive Results Component Value Reference Range Notes QuantiFERON-TB Gold Plus Reviewed date:08/07/2024 04:19:00 PM Interpretation: Performing Lab: Notes/Report: [facility] , QuantiFERON Incubation . Reference Range: . Incubation performed. QuantiFERON-TB Gold PlusNegativeNegative individuals should be considered for additional testing IU/mL. Chemiluminescence immunoassay methodology (ATS/IDSA/CDC Clinical Practice Guidelines, 2017). The [address] [place] [address] [phone] reference range is an Antigen minus Nil result of <0.35 Vice President Of Software Engineering: Gerald Do PhD, Phone: [phone] No response to M tuberculosis antigens detected. Performed at: [facility] Infection with M tuberculosis is unlikely, but high risk QuantiFERON CriteriaComment. M tuberculosis infection (including disease) and is The QuantiFERON-TB Gold Plus result is determined by value. The Mitogen tube serves as a control for the test. QuantiFERON-TB Gold Plus is a qualitative indirect test for intended for use in conjunction with risk assessment, subtracting the Nil value from either TB antigen (Ag) radiography, and other medical and diagnostic evaluations. QuantiFERON TB1 Ag Value0.01. IU/mLQuantiFERON TB2 Ag Value0.01. IU/mL QuantiFERON Nil Value0.02. IU/mLQuantiFERON Mitogen Value5.12. IU/mLPerforming Lab:see noteSt. [facility] LBVaricella-Zoster V Ab, IgG Reviewed date:10/05/2024 09:00:24 AM Interpretation: Performing Lab: Notes/Report: [facility] ,Varicella-Zoster V Ab, IgGReactiveNon Reactive detected suggesting that immunity has not been acquired. A Reactive result is considered evidence of immunity to [address] [place] [address] [phone] Vice President Of Software Engineering: Gerald Do PhD, Phone: [phone] consistent with previous infection and/or vaccination. A Non Reactive result indicates that VZV IgG was not VZV. Reactive indicates that VZV IgG was detected Please note reference interval change Performed at: [facility] Performing Lab:see [facility] LBCBC AUTO DIFF Reviewed date:10/14/2024 12:34:59 PM Interpretation: Performing Lab: Notes/Report: [facility] ,White Blood Count5.94.0-11.0 10 3/uLRed Blood Count4.364.20-5.40 10 6/uL Trrygylvse30.012.0-16.0 g/lQQiwnpyjllf93.136.0-48.0 %Mean Corpuscular Sepwvl67.0 81.0-99.0 fLMean Corpuscular Tuvbfsacsw79.126.7-34.0 pgMean Corpuscular HGB Conc 34.929.9-35.2 g/dLRed Cell Distribution Width11.511.0-15.0 %Platelet Freqh019 150-450 10 3/uLMean Platelet Volume8.79.5-13.5 fLNeutrophils Percent Auto50.7 43.0-75.0 %Lymphocytes Percent Auto35.020.5-60.0 %Monocytes Percent Auto8.51.7- 12.0 %Eosinophils Percent Auto5.10.9-7.0 %Basophils Percent Auto0.50.2-2.0 % Immature Granulocytes Pct Auto0.20.0-0.5 %Neutrophils Absolute Auto3.01.4-6.5 10 3/uLLymphocytes Absolute Auto2.11.2-3.8 10 3/uLMonocytes Absolute Auto0.50.3-0.8 10 3/uLEosinophils Absolute Auto0.30.0-0.7 10 3/uLBasophils Absolute Auto0.00.0- 0.1 10 3/uLImmature Granulocytes Abs Auto0.010.00-0.03 10 3/uLPerforming Lab:see noteML - [facility] LBPROF 14(COMP METB) Reviewed date:10/14/2024 12:34:59 PM Interpretation: Performing Lab: Notes/Report: [facility] ,Qybiel481605-768 mmol/LPotassium3.83.5-5.1 mmol/JZqquittp45481-963 mmol/LCarbon Znhsyop86.021.0-32.0 mmol/LAnion Gap10.2Lnwsofr0455-373 mg/dLBlood Urea Nitrogen 10.07.0-18.0 mg/dLCreatinine0.730.55-1.02 mg/dLEstimated GFR ( Jenn>60 >=60 mL/min/1.73m 2Estimated GFR (Non- Marge>60>=60 mL/min/1.73m 2BUN Creatinine Ratio13.3Mcmqdga6.88.5-10.1 mg/dLBilirubin Total0.90.2-1.0 mg/dL Aspartate Amino Hdcnkpbdpud9361-77 U/LAlanine Vhgfmtyobyongncf1867-10 U/L Alkaline Jkoeqkylrkz0731-011 U/LTotal Protein6.86.4-8.2 g/dLAlbumin Level3.73.4- 5.0 g/dLGlobulin3.1Albumin Globulin Ratio1.2Performing Lab:see noteML - [facility] LBUA (CLEAN or CATCH) GAS TECHNICIAN or MICRO IF IND. Reviewed date:10/14/2024 12:34:59 PM Interpretation: Performing Lab: Notes/Report: [facility] ,Color UrineLT. YELLOWYELLOWClarity UrineCLEARCLEARSpecific [place] Urine1.025 1.005-1.025pH Urine6.05.0-9.0Protein UrineNEGATIVENEG/TRACE mg/dLGlucose Urine UANEGATIVENEGATIVE mg/dLBilirubin UrineNEGATIVENEGATIVEKetones UrineNEGATIVE NEGATIVE mg/dLBlood UrineMODERATENEGATIVENitrite UrineNEGATIVENEGATIVE Urobilinogen Urine0.20.2-1.0 EU/dLLeukocyte Esterase UrineNEGATIVENEGATIVEUrine Microscopic IndicatedYESPerforming Lab:see noteML - [facility] LB URINE MICROSCOPIC ONLY Reviewed date:10/14/2024 12:34:59 PM Interpretation: Performing Lab: Notes/Report: [facility] ,WBC Urine0-2NONE SEEN #/HPFRBC Urine0-20-2 #/HPFBacteria UrineMODERATENONE SEEN #/HPFMucus UrineTRACENONE SEENSquamous Epithelial Cell UrineFEWNONE/RARE #/LPF Crystals Seen?None SeenNone Seen #/HPFCast Seen?NONE SEENNONE SEEN #/LPFUrine Culture IndicatedYES-FRMCPerforming Lab:see noteML - [facility] LBHCG Qualitative* Reviewed date:10/14/2024 12:34:59 PM Interpretation: Performing Lab: Notes/Report: [facility] ,HCG QualitativeNEGATIVENEGATIVEPerforming Lab:see noteML - [facility] LBUrine Culture - [facility] Reviewed date:10/15/2024 08:09:27 PM Interpretation: Performing Lab: Notes/Report: [facility] ,Urine Culture - FRMCSee Below For Report No Growth 2 Days Urine Culture - FR Urine Culture - [facility] No Growth 2 Days Urine Culture - FR U[facility] No Growth 2 Days Urine Culture - FR Urine Culture - [id number] [place] [address] No Growth 2 Days Urine Culture - [facility] Performing Lab:see noteML - [facility] LBUS pelvis transvaginal Reviewed date:02/14/2025 01:06:19 PM Interpretation: Performing Lab: Notes/Report: Source Facility: [facility] [place] [address] [place] [address] Ultrasound Report Signed Patient: FADIA LAN MR#: [id number] : 2000 Acct:[id number] Age/Sex: 24 / F ADM Date: 02/14/25 Loc: US Attending Dr: Nikhil Gold D.O. Ordering Physician: Nikhil Gold D.O. Date of Service: 02/14/25 Procedure(s): US pelvis transvaginal Accession Number(s): [id number] cc: Nikhil Gold D.O.; Todd José M.D. [place] [id number] Patient Name: FADIA LAN MRN: [id number] date: 2000 Sex: F Assigned Patient Location: US Current Patient Location: US Accession/Order Number: [id number] Exam Date: 02/14/2025 11:00 Report Date: 02/14/2025 11:32 At the request of: NIKHIL GOLD DO Procedure: US pelvis transvaginal ULTRASOUND PELVIS TRANSVAGINAL COMPARISON: 10/12/[address] CLINICAL DATA: Cramping for the past few days. History of right oophorectomy and IUD. Real-time ultrasound evaluation pelvis was performed utilizing a transvaginal approach. Estimated uterine size is approximately 8.1 x 6.2 x 4.1 cm. No focal myometrial abnormalities are identified. The endometrial lining is estimated at 7 mm. The IUD is visualized in appropriate position. The right ovary is surgically absent. The left ovary measures 3.7 x 2.3 x 2.4 cm. There are follicles measuring up to 11 mm in size. No dominant adnexal cysts are seen. There is documentation of ovarian blood flow with resistive index of 0.6. No free fluid is identified. US/US pelvis transvaginal IMPRESSION: APPROPRIATE POSITION OF IUD. NO DOMINANT ADNEXAL CYSTS OR OTHER ACUTE FINDINGS. Impression dictated by: Edita Jarvis M.D. 02/14/2025 11:32 AM Dictation Location: [place] [address] Electronically authenticated by: [id number] Y Date: 02/14/2025 11:32 Dictated By: Edita Jarvis M.D. Signed By: 02/14/25 1134 DD/ 1132 TD/TT: Human Services Assistant: Reason For Referral Diagnosis 1 Otalgia (H92.09) Referral Organization [facility] Referring Provider First Name Dakotah Referring Provider Last Name Arnav Referring Provider [facility] faithpoppy Referred Provider CrystalCelia Referred Provider Specialty Otolaryngolo gy Referral Priority Routine Diagnosis 1 Otalgia (H92.09) Referral Organization [facility] Referring Provider First Name Dakotah Referring Provider Last Name maren [facility] Referred Provider Celia Rojas Referred Provider Specialty Otolaryngolo gy Referral Priority Routine Medications Medication SIG (Take, Route, Frequency, Duration) Notes Start Date End Date Status Meloxicam 15 MG 1 tablet Orally Once a day; Dura tion: 30 days 5Active Immunizations Vaccine Route Administration Date Status Comme nts DTap, Unspecified Unknown 2000 Administered DTap, RsnbzbwlbxzHqjsbgv93/14/2001AdministeredDTap, BthcjomdpuvJlxckbl44/13/2001 AdministeredDTap, BwsludntgpzWicyxix12/01/2002AdministeredDTap, Unspecified Nocisho4109/15/2005dministeredHep B, Adult, Dose 2Oduenfi96/23/2001Administered Hep B, Adult, Dose 2Ijrznln83/10/2001AdministeredHep B/HIB (Comvax)Unknown 2000AdministeredHIB (HibTITER) - dqhmbfuxRqcjqyi48/14/2001AdministeredHIB (HibTITER) - umomorzdLxpwokc56/13/2001AdministeredHIB, unspecified formulation Buhshvw1908/20/2000AdministeredHIB, unspecified ooeiguwgbyrRreivij78/01/2002 AdministeredHPV (Gardasil)Mowcaot1212/27/2013dministeredHPV (Gardasil)Unknown 11/28/2018AdministeredMENINGOCOCCAL (BEXSERO)Txxavms6511/28/2018Administered MENINGOCOCCAL (BEXSERO)Quzdnll2801/30/2019AdministeredMeningococcal (Menevo) Rigbnzt6612/27/2013dministeredMeningococcal (Menevo)Poxqqlf7911/28/2018Administered MMR FTHatyska86/01/2002AdministeredMMR JDDogjbej35dministeredPolio Virus, XCZRyqqimx68/19/2001AdministeredPolio Virus, FGPNxoprmx00/14/2001 AdministeredPolio Virus, OOYKdwqghm36/13/2001AdministeredPolio Virus, IPVUnknown 09/15/2005dministeredTdap (Boostrix)Buhfqru3612/27/2013dministeredVaqta (Peds) Rbwzlqe7412/27/2013dministeredVaqta (Peds)Eltdzhj0411/28/2018Administered Social History Tobacco Use: Social History Observation Description Date Details (start date - stop date) Never Smoker NA - NA Tobacco Use/Smoking Question Answer Notes Patient is a nonsmoker Alcohol Screen (Audit-C) Question Answer Notes Did you have a drink containing alcohol in the p ast year? No Dszshr1FwmfbhqtjlorwvDoycdmajLZPOI-L (Standard) Question Answer Notes Did you have a drink containing alcohol in the p ast year? No Bvbxpl5ObdtebidcyfswfXsvmhjln Problems Problem Type SNOMED Code ICD Code Onset Dates Problem Status W/U Status Risk Notes Problem Sialolithiasis (94789329) Sialolithiasis (K11.5) ActiveconfirmedProblemBullous dermatosis (9595070)Other specified bullous disorders (L13.8)ActiveconfirmedProblemAllergic disposition (finding) (655580632)Allergy, unspecified, sequela (T78.40XS)ActiveconfirmedProblemNeck pain (74296361)Neck pain (M54.2)ActiveconfirmedProblemSyncope (508087924)Syncope (R55)ActiveconfirmedProblemArthralgia of the ankle and/or foot (880655761)Ankle pain, left (M25.572)ActiveconfirmedProblemDiarrhea (52272300)Diarrhea (R19.7) ActiveconfirmedProblemAcute bronchitis (14557762)Acute bronchitis (J20.9)Active confirmedProblemWell adult (664046852)Well adult (Z00.00)ActiveconfirmedProblem Allergic conjunctivitis (367225673)Allergic conjunctivitis (H10.10)Active confirmedProblemNausea and vomiting (51579186)Nausea and vomiting (R11.2)Active confirmedProblemUpper respiratory infection (48026786)Upper respiratory infection (J06.9)ActiveconfirmedProblemPoison suzanna (170606901)Poison suzanna (L23.7) ActiveconfirmedProblemImpetigo (77199334)Impetigo (L01.00)ActiveconfirmedProblem Otitis externa (9496516)Otitis externa (H60.90)ActiveconfirmedProblemContact dermatitis (51424074)Contact dermatitis (L25.9)ActiveconfirmedProblemAcute sinusitis (71150132)Acute sinus infection (J01.90)ActiveconfirmedProblem Gastroenteritis (22027064)Gastroenteritis (K52.9)ActiveconfirmedProblemSeasonal allergic rhinitis (736664549)Allergic rhinitis, seasonal (J30.2)Activeconfirmed ProblemOtalgia (442077613)Otalgia (H92.09)ActiveconfirmedProblemInsect bite (006247891)Insect bite (W57.XXXA)ActiveconfirmedProblemIrritable bowel (78274722)Irritable bowel (K58.9)ActiveconfirmedProblemGeneralized aches and pains (07617058)Body aches (R52)ActiveconfirmedProblemConcussion with loss of consciousness <= 30 min (S06.0X1A)ActiveconfirmedProblemWell child visit (089145689)Well child visit (Z00.129)ActiveconfirmedProblemBenign neoplasm of ovary (21618715)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)ActiveconfirmedProblemPain in limb (25739734)Pain, hand joint (M79.643)ActiveconfirmedProblemUnsp fracture of the lower end of unsp radius, init (S52.509A)ActiveconfirmedProblemCyst of left ovary (05226680498113133)Other ovarian cyst, left side (N83.292)Activeconfirmed ProblemAcute upper respiratory infection (73032278)Upper respiratory infection, viral (J06.9)ActiveconfirmedProblemPostural orthostatic tachycardia syndrome (disorder) (762186032)POTS (postural orthostatic tachycardia syndrome) (I49.8) ActiveconfirmedProblemDisease caused by Severe acute respiratory syndrome coronavirus 2 (disorder) (703145399)COVID-19 virus infection (U07.1)Active confirmed Vital Signs Temperature 97.6 degrees Fahrenheit 05/03/2024 Blood pressure qizhjsyiu23 mm Hg04/23/20255555Wqgkwh60 in04/23/2025lood pressure ytuxrzcu162 mm Hg04/23/20254341Ehtspa239.0 lbs106/23/2024BMI23.29 kg/m204/23/2025 Encounters Encounter Location Date Provider Diagnosis [facility] [address] [facility] [place] [address] 04/24/2025 Dakotah José Ankle pain, left M25.572 [facility] [address] [facility] [place] [address] 10/05/2024 Dakotah Staffordy [facility] [facility] [place] [address] 10/11/2024Doug [facility] [facility] [place] [address]/12/2025Doug yIetigo L01.00[facility] [facility] [place] [address]/12/2025Doug [facility] [address] [place] [address]Doug [facility] [address] [place] [address] [facility] [facility] [place] [address] 06/15/2024Doug [facility] [facility] [place] [address]Doug [facility] [facility] [place] [address]/05/2025Doug [facility] for examination for admission to educational institution Z02.0[facility] [facility] [place] [address]/Doug HoyOtalgia H92.09[facility] [facility] [place] [address]/ [facility] [facility] [place] [address]/08/2024[facility] [facility] Z02.0[facility] [place] [address]/oug [facility] [facility] [place] [address]/oug HoyAcute non-recurrent sinusitis, unspecified location J01.90[facility] [facility] [place] [address]/oug [facility] [facility] [place] [address]/oug [facility] [facility] [place] [address]/4Doug HoyAcute non- recurrent sinusitis, unspecified location J01.90[facility] [address] [facility] [place] [address]/4Doug HoyAcute non- recurrent sinusitis, unspecified location J01.90 and Nasal congestion R09.81 [facility] [facility] [place] [address] 07/04/2024Doug HoyOtalgia H92.09 and Otitis externa H60.90[facility] [facility] [place] [address]/02/2025Doug HoyImpetigo L01.00 and Insect bite W57.XXXAMedical [facility] [place] [address]Doug HoyIrritable bowel K58.9 and Ankle pain, left M25.572 Assessments Encounter Date Diagnosis (ICD Code) Assessment Notes Treatment Notes Treatment Clinical Notes Section Notes 07/04/2024 Otalgia (ICD-10 - H92.09) 07/04/2024Otitis externa (ICD-10 - H60.90)if not better - needs to see Dr crystal fitzgeraldp10/19/2024Impetigo (ICD-10 - L01.00)10/19/2024Insect bite (ICD-10 - W57.XXXA)04/23/2025Irritable bowel (ICD-10 - K58.9)04/23/2025nkle pain, left (ICD-10 - M25.572)05/15/2024cute non-recurrent sinusitis, unspecified location (ICD-10 - J01.90)05/25/2024cute non-recurrent sinusitis, unspecified location (ICD-10 - J01.90)07/25/2024Encounter for examination for admission to educational institution (ICD-10 - Z02.0)08/01/2024Otalgia (ICD-10 - H92.09) 08/13/2024Encounter for examination for admission to educational institution (ICD-10 - Z02.0)10/22/2024Impetigo (ICD-10 - L01.00)04/24/2025nkle pain, left (ICD-10 - M25.572)05/03/2024cute non-recurrent sinusitis, unspecified location (ICD-10 - J01.90)Rest and drink more liquids, especially water. You may use a humidifier or vaporizer to help keep the drainage moist. Mztk-asg-rvijcey Nasal Saline may help the stuffy and runny nose. Use Ibuprofen and or Tylenol as needed for fever, chills, body aches or pain. Children 5 years old should not be given rtki-yct-oxhyiqc cough and cold medications such as guaifenesin and dextromethorphan. If you're over age 5, you may try zrqk-lph-fjtoqfn cold medications such as guaifenesin and dextromethorphan, or multi-symptom cold reliever such as Dayquil to help reduce the symptoms. Antibiotics have been pre scribed. You should take these until completed and follow the directions. Antibiotics can sometimescause upset stomach, and in rare cases, serious allergic reactions or serious gastrointestinal problems. If you start having severe abdominal pain, severe vomiting, or bloody diarrhea, you should be r eevaluated by your physician or urgent care immediately. Follow up with your Primary Care Provider or return to clinic if symptoms do not improve within 3-5 days CancelRx Response got Denied on 2024-05-15 13:40:58 for 'Cefdinir 300 MG Capsule'Pharmacy Notes: Prescription not found. Contact Pharmacyby other means 05/03/2024Nasal congestion (ICD-10 - R09.81) Plan Of Treatment Pending Test Test Name Order Date TB GOLD PLUS, QUANTIFERON 07/25/2024 Covid-19 PCR (CVDTBH) 08/04/2023 INFLUENZA A AND B AG 08/04/2023 VARICELLA IGG AB 08/13/2024 XR ANKLE LT 2V 04/24/2025 Insurance Providers Payer Name Payer Address Payer Phone Subscriber Number Group Number Insured Name Patient Relationship to Insured Coverage Start Date Coverage End Date [employer] [address] [address] [place] [phone] [id number] Chantelle Lan - patient is the insured Medical (General) History Medical History History ICD Code Postural Orthostatic Tachycardia Syndrom e SyncopeChest PainOther ovarian cyst, left sideN83.646RcbxxgjaE42.00 OdqrvrpbmwrxfgF76.5COVID-19 virus udjrqkergF17.8CrxtrciG76.60YfdcycqaA62.7Body fxxcoI65Yzqrot and pwruzotiK88.2Dermoid cyst of right gvvkjM85.0Well oyyueF68.00 Allergy, unspecified, fcnyufbG14.40XSPoison ivyL23.7Other specified bullous ckkdeulanX30.8Well child zxmgdB30.129Acute hicuamsnyqS41.9Neck painM54.2 Concussion with loss of consciousness < = 30 minS06.2U6IZwlaonuq rhinitis, ofndusawJ51.2Upper respiratory odoxeywroR22.9Upper respiratory infection, viral J06.8WiffbeyyficvspeK12.9Pain, hand jkofzT24.643Unsp fracture of the lower end of unsp radius, initS52.509AAllergic njyunqpzzrbgtyZ80.10Contact aoviidczvpB10.9 Surgical History Surgery Date(Month/Year) Cyst Removal
--- OUTSIDE RECORDS SUMMARY | 2025-04-24 17:52 | XMS_ITS | CCD ---
Author Organization [facility] Care Team Providers Care Orthopedic Dentist Name Role Phone Todd Dinero MD Primary Care Provider [phone] ESTUARDO CARTER Attending Unavailable TODD DINERO Primary Care Unavailable ISAACY ., DR CARRASCO Admitting Unavailable HOY ., [...] Unavailable MD Todd Dinero Primary Care Provider [phone] MD Karson Manzanares Emergency Provider [phone] RadDO Major alonso Jr Attending Provider [phone] Todd Dinero MD Primary Care Provider [phone] Edna Monaco MD Attending Provider [phone] VINH TOVAR Attending Unavailable Radatz Jr, Edward Attending Unavailable Todd Dinero Primary Care Unavailable Radatz Jr, Edward Admitting Unavailable Karson Manzanares Admitting Unavailable Karson Manzanares Attending Unavailable Todd Dinero Primary Care Unavailable Edna Monaco Admitting Unavailable Edna Monaco Attending Unavailable Radatz Jr, Edward Attending Unavailable Todd Dinero Primary Care Unavailable Radatz Jr, Edward Admitting Unavailable Radatz Jr, Edward Attending Unavailable Radatz Jr, Edward Admitting Unavailable Todd Dinero M Primary Care Unavailable Radatz Jr, Edward Attending Unavailable Radatz Jr, Edward Admitting Unavailable Todd Dinero Primary Care Unavailable Radatz Jr, Edward Attending Unavailable Radatz Jr, Edward Admitting Unavailable Todd Dinero M Primary Care Unavailable Todd Dinero MD Primary Care Provider [phone] Ramin ORDAZ, Evgeny Attending Unavailable Todd Dinero MD Primary Care Unavailable Todd Dinero MD Primary Care Provider [phone] URIEL GERMAN Attending Unavailable ASIF, DMITRI Attending Unavailable DOLCE, ZAID R Attending Unavailable ASIF, DMITRI Attending Unavailable ASIFDMITRI Attending Unavailable ASIF, DMITRI Attending Unavailable ASIF, DMITRI Attending Unavailable DOLCE, ZAID R Attending Unavailable DOLCE, ZAID R Attending Unavailable ASIF, DMITRI Attending Unavailable Ramin ORDAZ, Evgeny Unavailable Unavailable Todd Dinero MD Primary Care Provider [phone] Allergies Allergy ClassificationReported Allergen(s)Allergy TypeDate of OnsetReaction(s) Facility (1 source)PenicillinDrug AllergyThe [facility] (17 sources)AmoxicillinDrug Puleiij33-72-8282YzozgosKTUR [facility] (17 sources)cefdinirDrug Wluyyri23-94-2578PxcwmtuUXWL Healthcare (20 sources)Penicillin GDrug Dsszlkl78-92-9636Ijbvchkn, UnknownNorth [facility] (12 sources)OtherPropensity to adverse ofiqgwoab61-10-6025BWUN [facility] Work Phone: (3 sources)Penicillins; Translations: [penicillins]Propensity to adverse reactions (disorder)61-25-1792[facility] Medications Current Medications MedicationDrug Class(es)DatesSig (Normalized)Sig (Original)acetaminophen 325 mg / HYDROcodone bitartrate 5 mg oral tablet (1 source)Opioid AgonistStart: 10-10-2020 End: 15-54-2188TLQQCdmzwoh-acetaminophen (NORCO) 5-325 MG per tablet Indications: Post-op pain Take 1 tablet by mouth every 4 hours as needed for Pain for up to 3 days. Intended supply: 3 days. Take lowest dose possible to manage pain 12 tablet 0 10/10/2020 10/13/2020 Activebetamethasone 0.5 mg/ml / clotrimazole 10 mg/ml topical cream (7 sources)Azole Antifungal, CorticosteroidStart: 22-81-8990rkcmzzzigzvl- betamethasone (Lotrisone) cream Indications: Other infective chronic otitis externa ofleft ear Apply to left ear twice daily for 10 days 15 g 08/24/2024 Activecalcium chloride 0.0014 meq/ml / potassium chloride 0.004 meq/ml / sodium chloride 0.103 meq/ml / sodium lactate 0.028 meq/ml injectable solution (1 source)Start: 05-29-1944vwmzawkr ringers uhcneydc50 day ethinyl estradiol 0.825351 mg/hr / etonogestrel 0.005 mg/hr vaginal system (4 sources)Progestin, EstrogenStart: 03-04-2025 End: 24-02-0423wzftlssiiphu-ethinyl estradiol (NuvaRing) 0.12-0.015 MG/24HR vaginal ring Indications: control counseling Insert vaginally and leave in place for 21 consecutive days (3 weeks), then remove. Wait for 7 days before inserting new ring. 1 each 03/04/2025 ActiveEthinyl Estradiol / Ferrous fumarate / Norethindrone (3 sources)EstrogenStart: 06-28-2024 End: 23-87-7607fvfg 1 tablet by mouth once daily, then take 1 tablet by mouth once dailynorethindrone-ethinyl estradiol (07/02) 1-20 MG-MCG tablet Indications: Encounter for surveillance of other contraceptive Take 1 tablet by mouth Daily for 28 days Take 1 tablet by mouth daily28 tablet 06/28/2024 07/26/2024 Active2 ml fentaNYL 0.05 mg/ml injection (4 sources)Opioid AgonistStart: 96-65-3989stmtsVCG (SUBLIMAZE) injection 50 mcg Start: 05-52-3586jbgxxNHJ (SUBLIMAZE) injection 25 mcglevonorgestrel 0.994344 mg/hr intrauterine system (20 sources)Progestin, Progestin-containing Intrauterine DeviceStart: 08-27-2024 End: 85-23-3711Schtxgalzpqaus intrauterine device 52 mg End: 21-63-7679ichjdtduxltfzz (Celine) 13.5 MG IUD as directed Intrauterine 06/28/2024 Discontinued (Other)meloxicam 15 mg oral tablet (6 sources)Nonsteroidal Anti-inflammatory DrugStart: 04-03-2024 End: 31-26-4002axjn 1 tablet by mouth once daily, then take 1 tablet by mouth once dailymeloxicam (Mobic) 15 MG tablet Indications: Left ankle instability Take 1 tablet (15 mg) by mouth Daily Take one pill PO Daily 30 tablet 04/03/2024 04/23/2024 Discontinuedondansetron 4 mg disintegrating oral tablet (3 sources)Serotonin-3 Receptor AntagonistStart: 04-16-2024 End: 73-80-2883yfnr 1 tablet by mouth every eight hours as needed for nausea and vomitingondansetron ODT (Zofran-ODT) 4 MG disintegrating tablet Take 4 mg by mouth every 8 (eight) hours ifneeded for nausea or vomiting 04/16/2024 04/23/2024 Fhhcggbkscog02 hr scopolamine 0.0139 mg/hr transdermal system (1 source)AnticholinergicStart: 48-08-8671wwqtsztmywq (TRANSDERM-SCOP) transdermal patch 1 patch Completed/Discontinued Medications MedicationDrug Class(es)DatesSig (Normalized)Sig (Original)[id number] 200 actuat albuterol 0.09 mg/actuat metered dose inhaler (6 sources)beta2-Adrenergic Agonist End: 32-86-0428mvcmdarft HFA (Ventolin HFA) 90 mcg/act inhaler every 4 (four) hours. 04/18/2024 Discontinuedcephalexin 500 mg oral capsule (12 sources)Cephalosporin AntibacterialStart: 04-16-2024 End: 43-81-8418yfaa 1 capsule by mouth in the morning, then take 1 capsule by mouth in the evening, then take 1 capsule by mouth at bedtimecephalexin (Keflex) 500 MG capsule Take 500 mg by mouth in the morning and 500 mg in the evening and 500 mg before bedtime. 04/16/2024 06/28/2024 Discontinuedcitalopram 10 mg oral tablet (6 sources)Serotonin Reuptake InhibitorStart: 12-17-2022 End: 37-51-3574xobbcprffy (CeleXA) 10 MG tablet 1 (one) time each day at the same time. 12/17/2022 04/18/2024 Discontinuedfluconazole 150 mg oral tablet (3 sources)Azole AntifungalStart: 06-28-2024 End: 73-11-2463wuqd 1 tablet by mouth oncefluconazole (Diflucan) 150 MG tablet Indications: Vaginal discharge , Yeast infection Take 1 tablet(150 mg) by mouth every 3rd (third) day for 2 doses 2 tablet 06/28/2024 07/02/2024 fludrocortisone acetate 0.1 mg oral tablet (6 sources)Start: 12-17-2022 End: 32-41-4964udwugikypndvpta (Florinef) 0.1 MG tablet 1 (one) time each day at the same time. 12/17/2022 04/18/2024 Discontinuedibuprofen 800 mg oral tablet (6 sources)Nonsteroidal Anti-inflammatory DrugStart: 07-02-2022 End: 37-96-7919qhkv 1 tablet by mouth every eight hours as neededibuprofen 800 MG tablet TAKE 1 TABLET BY MOUTH EVERY 8 HOURS NEEDED WITH FOOD 07/02/2022 04/18/2024 Discontinuediopamidol (ISOVUE-370) 76 % injection 75 mL (1 source)Start: 10-10-2020 End: 70-48-0892buxvephhy (ISOVUE-370) 76 % injection 75 mLketorolac tromethamine 10 mg oral tablet (7 sources)Nonsteroidal Anti-inflammatory Drug, Cyclooxygenase InhibitorStart: 04-16-2024 End: 16-39-6710oldz 1 tablet by mouth every eight hours as needed for pain ketorolac (Toradol) 10 MG tablet Take 10 mg by mouth every 8 (eight) hours if needed for moderate pain 04/16/2024 04/24/2024 DiscontinuedStart: 42-34-4531jwhh 1 tablet by mouth every six hours as needed for painketorolac (TORADOL) 10 MG tablet Take 1 tablet by mouth every 6 hours as needed for Pain 12 tablet 0 10/10/2020 ActivemetroNIDAZOLE 500 mg oral tablet (3 sources)Nitroimidazole AntimicrobialStart: 06-28-2024 End: 92-13-2248mzbg 1 tablet by mouth in the morningmetroNIDAZOLE (Flagyl) 500 MG tablet Indications: Vaginal discharge , Yeast infection Take 1 tablet(500 mg) by mouth in the morning and 1 tablet (500 mg) before bedtime. Do all this for 7 days. Do not drink alcohol while taking this medication. 14 tablet 06/28/2024 2024 Expiredmidodrine hydrochloride 2.5 mg oral tablet (6 sources)alpha-Adrenergic Agonist End: 24-98-0155nqkjlrzqo (Proamatine) 2.5 MG tablet 04/18/2024 Discontinued2 ml prochlorperazine 5 mg/ml injection (1 source)PhenothiazineStart: 10-10-2020 End: 55-88-6454dcfwdtbfvllffkzw (COMPAZINE) injection 5 mgpyridostigmine bromide 60 mg oral tablet (6 sources) End: 88-69-6813okov 1 tablet by mouth twice dailypyridostigmine (Mestinon) 60 MG tablet Take 1 tablet twice a day by oral route. 04/18/2024 Discontinued Problems Active Problems Problem ClassificationProblemDateDocumented DateEpisodic/ChronicCardiac dysrhythmias (9 sources)Postural orthostatic tachycardia syndrome ; Translations: [Postural orthostatic tachycardia syndrome]Onset: 218504-70-8410BsagtabKwqgqidlqaeeb and procreative management (10 sources)Presence of (intrauterine) contraceptive device; Translations: [Intrauterine contraceptive device in situ]Onset: 307888-10-6350Leaxgjeb Immunizations and screening for infectious disease (5 sources)Contact with and (suspected) exposure to infections with a predominantly sexual mode of transmission; Translations: [Encounter for screening for human papillomavirus (HPV)]Onset: 03-92-1852EcamevhdCkwwpmywgcft diseases of female pelvic organs (1 source)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 adhesions (postinfective); Translations: [FE PELV PERITON ADHES POSTINFECTIVE]Onset: 99-73-9678NzyoposkNwxrsbjug disorders (2 sources)Menstrual spotting; Translations: [Excessive and frequent menstruation with regular cycle]78-88-3489KghhmrmThhnkdw (2 sources)Mycosis; Translations: [Candidiasis, unspecified]12-24-3954Dzivwkgt Other acquired deformities (2 sources)Contracture of joint of left ankle; Translations: [Contracture, left ankle]45-89-0688GpajpylYpval and unspecified benign neoplasm (1 source)Mature cystic teratoma of right ovary; Translations: [Benign neoplasm of right ovary]EpisodicOther connective tissue disease (6 sources)Peroneal tendinitis of left lower limb; Translations: [Peroneal tendinitis, left leg]68-63-8196ErsnwzdiGhbvd connective tissue disease (4 sources)Enthesopathy of lower limb; Translations: [Other enthesopathy of left foot and ankle]78-89-4148WxdsbddgVkaoa female genital disorders (2 sources)Ovarian pain; Translations: [Other specified conditions associated with female genital organs and menstrual cycle]40-32-6005PqcoqkqtGvpuc infections; including parasitic (9 sources)Sequelae of infectious disease; 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 Other nervous system disorders (1 source)Postoperative pain ; Translations: [Other acute postprocedural pain] EpisodicOther non-traumatic joint disorders (4 sources)Instability of joint of left ankle; Translations: [Other instability, left ankle]90-70-8192EsewaegxBkltr upper respiratory infections (9 sources)Chronic sinusitis; Translations: [Chronic sinusitis, unspecified] Onset: 220852-68-7053LfearfaXbopczyd codes; unclassified (2 sources)Body mass index (BMI) 20.0-20.9, adultOnset: EpisodicSuperficial injury; contusion (2 sources)Contusion of left foot; Translations: [Contusion of left foot, initial encounter]41-73-4609EnogthdoHqutdouatsvq (3 sources)CONTACT W/AND (SUSP) EXPOS COVID-19; Translations: [CONTACT W/AND (SUSP) EXPOS COVID-19]Onset: 64-03-3502Fcphoefascjv (2 sources)Pain in pelvis; Translations: [Pelvic pain]Onset: 08-22-2024 10-82-0296Fhsea infection (1 source)COVID-19; Translations: [COVID-19]Onset: 01-20-2022 Past or Other Problems Problem ClassificationProblemDateDocumented DateEpisodic/ChronicAbdominal pain (20 sources)Flank pain; Translations: [Unspecified abdominal pain]Onset: 61-87-7553CrvkdsdeTxfcoras; convulsions (9 sources)Neurological finding; Translations: [Unspecified convulsions]Onset: 549933-78-8338ViuhhcunJspefcrfkmh chest pain (9 sources)Chest pain; Translations: [Other chest pain]Onset: 05-13-2019 42-59-5510IblaanjgKgtkg connective tissue disease (1 source)Pain in left foot; Translations: [Pain in left foot]Onset: 12-30-2023 EpisodicOther female genital disorders (14 sources)Vaginal discharge; Translations: [Other specified noninflammatory disorders of vagina]Onset: 124649-17-3727DqxfyeioEjnow female genital disorders (14 sources)History of gynecological disorder; Translations: [Personal history of other diseases of the female genital tract]Onset: EpisodicOther screening for suspected conditions (not mental disorders or infectious disease) (15 sources)Encounter for screening for malignant neoplasm of cervix; Translations: [Raised cardiac enzyme or marker]Onset: 08-30-9095ShofnazjKlxsx upper respiratory infections (1 source)Acute sinusitis, unspecified; Translations: [ACUTE SINUSITIS UNSPECIFIED]Onset: 64-90-9884AesphtnnRuonltr cyst (20 sources)Cyst of right ovary; Translations: [Unspecified ovarian cyst, right side]Onset: 16-34-1286LwlvorkfUgtqkrs and strains (9 sources)Sprain of left foot; Translations: [Unspecified sprain of left foot, initial encounter]Onset: 269649-88-2761VyhjvkiiNyokpwk (9 sources)Syncope; Translations: [Syncope and collapse]Onset: 03-16-2019 57-33-9161HwwlvwlaWqidgoxvxmoo (9 sources)Tuberculosis of vertebral column; Translations: [Tuberculosis of spine]Onset: 880536-28-1498BvjltqswUmtnefqszjdy (1 source)CONTACT W/AND (SUSP) EXPOS COVID-19; Translations: [CONTACT W/AND (SUSP) EXPOS COVID-19]Onset: 44-55-9523Ftujeueeltki (1 source)ER (chief complaint)Onset: 02-25-2025 Results Test NameValueInterpretationReference RangeFacilityHCG ( test) Ql (U)on 62-99-4471Udjkdqnzqiepbl and review of laboratory resultsNormalNOMS Healthcare Preg Test, UrNegativeNegativeNOMS HealthcareNOMS HealthcareUrinalysis macro (dipstick) panel (U)on 45-37-7468Iwpcnxdqj, UANegativeNegative - 4(70) +++ mg/dL [facility] HealthcareBlood, UAPositiveNegative - 50 Tristan/mcLNOMS HealthcareClarity, UA ClearNOMS HealthcareColor, UAYellowNOMS HealthcareGlucose, UANegativeNegative - 2000(110) ++++ mg/dLNOMS HealthcareInterpretation and review of laboratory resultsAbnormalNOMS HealthcareKetones, UANegativeNegative - 160(16) ++++ mg/dL [facility] HealthcareLeukocytes, UANegativeNegative - 500+++ Manjinder/mcLNOMS Healthcare Nitrite, UANegativeNegative - PositiveNOMS HealthcarepH, UA6.55 - 9NOMS HealthcareProtein, UANegativeNegative - 1999(20) ++++ mg/dLNOMS HealthcareSpec Grav, UA1.0151 - 1.03NOMS HealthcareUrobilinogen, UA1.00.2 - 12 mg/dLNOMS HealthcareNOMS HealthcareUS PELVIS TRANSVAGINALon 04-92-7491[place] [address] Ultrasound Report Signed Patient: FADIA LAN MR#: [id number] : 2000 Acct:[id number] Age/Sex: 24 / F ADM Date: 02/14/25 Loc: US Attending Dr: Dmitri Gold D.O. Ordering Physician: Dmitri Gold D.O. Date of Service: 02/14/25 Procedure(s): US pelvis transvaginal Accession Number(s): [id number] cc: Dmitri Gold D.O.; Todd Dinero M.D. [place] [id number] Patient Name: FADIA ALN MRN: [id number] date: 2000 Sex: F Assigned Patient Location: US Current Patient Location: US Accession/Order Number: [id number] Exam Date: 02/14/2025 11:00 Report Date: 02/14/2025 11:32 At the request of: DMITRI GOLD DO Procedure: US pelvis transvaginal ULTRASOUND [...] Jarvis M.D. 02/14/2025 11:32 AM Dictation Location: [place] [address] Electronically authenticated by: [id number] Y Date: 02/14/2025 11:32 Dictated By: Edita Jarvis M.D. Signed By: 02/14/25 1134 DD/ 1132 TD/TT: Textile Engraver:FRANCISCOHRadiology, Radiologist, - 02/14/2025 [place] [address] Ultrasound Report Signed Patient: FADIA LAN MR#: [id number] : 2000 Acct:[id number] Age/Sex: 24 / F ADM Date: 02/14/25 Loc: US Attending Dr: Dmitri Gold D.O. Ordering Physician: Dmitri Gold D.O. Date of Service: 02/14/25 Procedure(s): US pelvis transvaginal Accession Number(s): [id number] cc: Dmitri Gold D.O.; Todd Dinero M.D. The [place] [id number] Patient Name: FADIA LAN MRN: [id number] date: 2000 Sex: F Assigned Patient Location: US Current Patient Location: US Accession/Order Number: [id number] Exam Date: 02/14/2025 11:00 Report Date: 02/14/2025 11:32 At the request of: DMITRI GOLD DO Procedure: US pelvis transvaginal ULTRASOUND [...] Jarvis M.D. 02/14/2025 11:32 AM Dictation Location: [place] [address] Electronically authenticated by: [id number] Y Date: 02/14/2025 11:32 Dictated By: Edita Jarvis M.D. Signed By: 02/14/25 1134 DD/ 1132 TD/TT: Textile Engraver: GALILEA HealthcareRadiology Study observation (narrative)NOMS HealthcareUS PELVIS TRANSVAGINALOrdered By: Radiologist Radiology on 98-10-8435THOC [employer] Work Phone: ambulatory Visit Summaryon 37-65-7956Zkihkbzezi Visit SummaryAmbulatory Visit Summary FADIA LAN :2000 Visit Date:10/16/2024 Ambulatory Visit Instructions Your Care Team Primary Care Physician - Arnav LYNCH, Todd Allergies penicillins (Hives) Problems Ongoing - Any problem that you are currently receiving treatment for. LLQ pain Patient Survey You may receive a survey via text or e-mail asking about your office visit. Please share your experience with us by completing your survey. We appreciate your feedback and thank you for choosing us for your care. [facility] 48-18-0773Rkgqwmflf Reminders From: Myra Manzanares To: EU - Administrative; Sent: 10/19/2024 10:00:44 EDT Show up: 06/21/2025 09:00:00 EST Subject: 1 yr f/u w/ KUB KEVIN Due Date/Time: 10/19/2025 10:00:00 EDT Reminder/Recall Pt seen on 10/19/2024 w/ EDGARDO in [place]. Pt needs a follow up for 1 yr with KUB and KEVIN. Pt might be at college at the time this visit is due. Per EDGARDO, pt can be scheduled for when she gets back from College for a break or even for summer. [facility] Office/Clinic Noteon 69-16-5696Kqrmhai Office/Clinic NoteUrology Office/Clinic Note Chief Complaint [facility] f/u [facility] Staff 24 yr old female here for ER f/u TB 10/12/24 for LLQ/flank pain. US and CT [...] E&M of New Patient Moderate 45-59 Min 69032 Urnls Dip Stick Auto w/o Microscopy POC 61726 2. LLQ pain (R10.32: Left lower quadrant pain) Do not think this is related. CT shows constipation. Discussed increasing fluids will help with this. Also discussed dietary recommendations/stool softener etc. US shows ovarian cyst and pelvic congestion syndrome. Advised these are more likely causing her pain. Recommend she see LOKIE DRIVER. Ordered: E&M of New Patient Moderate 45-59 Min 51459 Follow-up With When Contact Information GUY REY, VINH Mckenzie, URL In 1 year [address] [place] [address] Additional Instructions: Patient Education Constipation, Adult Kidney Stones, Vprk-om-Fknd Problem List/Past Medical History Ongoing Absence epilepsy [...] Protein Urine Dipstick: Negative (10/19/24 09:31:00) Specific [place] Urine Dipstick: 1.015 (10/19/24 09:31:00) Urine Appearance Urine Dipstick: Clear (10/19/24 09:31:00) Urine Color Urine Dipstick: Yellow (10/19/24 09:31:00) Urobilinogen Urine Dipstick: Normal 0.2-1 EU/dl (10/19/24 09:31:00) pH Urine Dipstick: 7.5 (10/19/24 09:31:00)[facility] Comment on above:Result Comment: Electronically Signed By: VINH TOVAR PA-C\Date and Time Signed: 10/20/2511:00 EDTUrine Cultureon 41-21-4339Dvikhxxk identified Cx Nom (U)No Growth 2 Days PERFORMED BY: [facility] [address] [place] [address] PATHOLOGIST COPYRIGHT EXPERT EDUARDO LIRA M.D.NormalKindred Hospital North Florida Physician GroupComment on above: Performed By: #### CUU #### [facility] [address] [place] [id number] USARECURRENT VAGINITIS (HTRX)on 67-49-5890QBBNBMEBU VAGINAE0 NOMS HealthcareATOPOBIUM VAGINAENot detectedNOMS HealthcareBVAB 2,3 (BACTERIAL VAGINOSIS ASSOCIATED BACTERIA 2, 3); MOBILUNCUS [id number] HealthcareBVAB 2,3 (BACTERIAL VAGINOSIS ASSOCIATED BACTERIA 2, 3); MOBILUNCUS SPPNot detectedNOMS HealthcareCANDIDA ALBICANS, PARAPSILOSIS, BCSDZQCSCQ9SRSO HealthcareCANDIDA ALBICANS, PARAPSILOSIS, TROPICALISNot detectedNOMS HealthcareCANDIDA GLABRATA0 NOMS HealthcareCANDIDA GLABRATANot detectedNOMS HealthcareCANDIDA KNYUBA0WSYJ HealthcareCANDIDA KRUSEINot detectedNOMS HealthcareCHLAMYDIA WEAYXTSCFPQ1OAYD HealthcareCHLAMYDIA TRACHOMATISNot detectedNOMS HealthcareGARDNERELLA VAGINALIS0 NOMS HealthcareGARDNERELLA VAGINALISNot detectedNOMS HealthcareMEGASPHAERA (TYPES 1, 2)0NOMS HealthcareMEGASPHAERA (TYPES 1, 2)Not detectedNOMS Healthcare MYCOPLASMA DWHDKEWHPB4YXJP HealthcareMYCOPLASMA GENITALIUMNot detectedNOMS HealthcareNEISSERIA BMAESRDHIQQ8RVNT HealthcareNEISSERIA GONORRHOEAENot detected NOMS HealthcareTRICHOMONAS JCBWWEBMW8QMND HealthcareTRICHOMONAS VAGINALISNot detectedNOMS HealthcareNOMS HealthcareIUD Removalon 66-34-4165Qwlbc Fazio, DO 04/23/2024 9:07 AM IUD Removal Date/Time: [...] Removal due to infection and inflammatory reaction: noNOMS HealthcareNOMS HealthcareXR foot LT min 3V*on 36-27-2523XM foot LT min 3V*[facility] [place] [address] [place] [address] XRay Report Signed Patient: Fadia Lan MR#: [id number] : 2000 Acct:[id number] Age/Sex: 23 / F ADM Date: 12/30/23 Loc: ER Room: Type: [facility] ER Attending Dr: Copies to: Karson Manzanares MD Ordering Provider: Karson Manzanares MD Date of Service: 12/30/23 XR/XR foot LT min 3V*: Extremity Injury, Lower ([id number]) XR/XR ankle LT min 3V*: Extremity Injury, [...] Marc Owen M.D.12/30/2023 8:13 AM Dictation Location: [place] [address] Transcribed By: [facility] 12/30/23812 Dictated By: Marc Owen DO 12/30/23810 Signed By: 12/30/23 0813[facility] Physician GroupUS PELVIS W/ TRANSVAGINALon 76-89-1418[address] [address] Ultrasound Report Signed Patient: FADIA LAN MR#: [id number] : 2000 Acct:[id number] Age/Sex: 23 / F ADM Date: 10/17/23 Loc: NOMS Attending Dr: Dmitri Gold D.O. Ordering Physician: Dmitri Gold D.O. Date of Service: 10/17/23 Procedure(s): US pelvis w/ transvaginal Accession Number(s): [id number] cc: Dmitri Gold D.O.; Todd Dinero M.D. [place] [address] Patient Name: FADIA LAN MRN: [id number] date: 2000 Sex: F Assigned Patient Location: [facility] Current Patient Location: [facility] Accession/Order Number: [id number] Exam Date: 10/17/2023 13:00 Report Date: 10/17/2023 13:51 At the request of: DMITRI GOLD Procedure: US pelvis w/ transvaginal EXAMINATION: US [...] or complex cyst Electronically authenticated by: KRISTEN CUTLER Date: 10/17/2023 13:51 Dictated By: Kristen Cutler M.D. Signed By: 10/17/23 1359 DD/ 1351 TD/TT: Textile Engraver:FRANCISCOHRadiology, Radiologist, - 10/17/2023 [place] [address] Ultrasound Report Signed Patient: FADIA LAN MR#: [id number] : 2000 Acct:[id number] Age/Sex: 23 / F ADM Date: 10/17/23 Loc: NOMS Attending Dr: Dmitri Gold D.O. Ordering Physician: Dmitri Gold D.O. Date of Service: 10/17/23 Procedure(s): US pelvis w/ transvaginal Accession Number(s): [id number] cc: Dmitri Gold D.O.; Todd Dinero M.D. The [address] [address] Patient Name: FADIA LAN MRN: [id number] date: 2000 Sex: F Ass[facility] Accession/Order Number: [id number] Exam Date: 10/17/2023 13:00 Report Date: 10/17/2023 13:51 At the request of: DMITRI GOLD Procedure: US pelvis w/ transvaginal EXAMINATION: US [...] or complex cyst Electronically authenticated by: KRISTEN CUTLER Date: 10/17/2023 13:51 Dictated By: Kristen Cutler M.D. Signed By: 10/17/23 5703 DD/ 1357 TD/TT: Textile Engraver: GALILEA HealthcareRadiology Study observation (narrative)NOM HealthcareUS PELVIS W/ TRANSVAGINALOrdered By: Radiologist Radiology on 20-47-2329[employer] Work Phone: US PELVIS W/ TRANSVAGINALon 04-27-2507[place], [place] [address] Ultrasound Report Signed Patient: FADIA LAN MR#: [id number] : 2000 Acct:[id number] Age/Sex: 23 / F ADM Date: 09/02/23 Loc: [place] Attending Dr: Dmitri Gold D.O. Ordering Physician: Dmitri Gold D.O. Date of Service: 09/02/23 Procedure(s): US pelvis w/ transvaginal Accession Number(s): [id number] cc: Dmitri Gold D.O.; Todd Dinero M.D. [address] [address] Patient Name: FADIA LAN MRN: [id number] date: 2000 Sex: F Assigned Patient Location: [place] Current Patient Location: Accession/Order Number: [id number] Exam Date: 09/02/2023 16:07 Report Date: 09/05/2023 07:31 At the request of: DMITRI GOLD Procedure: US pelvis w/ transvaginal EXAMINATION: US [...] ovarian simple cyst Electronically authenticated by: KRISTEN CUTLER Date: 09/05/2023 07:31 Dictated By: Kristen Cutler M.D. Signed By: 09/05/23 0733 DD/ 0731 TD/TT: Textile Engraver:TBHRadiology, Radiologist, MD - 09/05/2023 [place] [address] Ultrasound Report Signed Patient: FADIA LAN MR#: [id number] : 2000 Acct:[id number] Age/Sex: 23 / F ADM Date: 09/02/23 Loc: [place] Attending Dr: Dmitri Gold D.O. Ordering Physician: Dmitri Gold D.O. Date of Service: 09/02/23 Procedure(s): US pelvis w/ transvaginal Accession Number(s): [id number] cc: Dmitri Gold D.O.; Todd Dinero M.D. [address] [place] [id number] Patient Name: FADIA LAN MRN: [id number] date: 2000 Sex: F Assigned Patient Location: [place] Current Patient Location: Accession/Order Number: [id number] Exam Date: 09/02/2023 16:07 Report Date: 09/05/2023 07:31 At the request of: DMITRI GOLD Procedure: US pelvis w/ transvaginal EXAMINATION: US [...] ovarian simple cyst Electronically authenticated by: KRISTEN CUTLER Date: 09/05/2023 07:31 Dictated By: Kristen Cutler M.D. Signed By: 09/05/23732 DD/ 0 TD/TT: Textile Engraver: [facility] HealthcareRadiology Study observation (narrative)[facility] HealthcareUS PELVIS W/ TRANSVAGINALOrdered By: Radiologist Radiology on [id number] [employer] Work Phone: cHLAMYDIA , NISSERIA, VAGINALIS NAAon 08-19-2022 Chlamydia by NAANegativeNormalNegativeCleveland Clinic Mentor HospitalComment on above: Performed By: #### CTVNGNA ####[facility] [address] [place] [address]DrGrayson Phillipcoccus by NAANegativeNormalNegative The [facility] HospitalComment on above:Performed By: #### CTVNGNA ####[facility] [address] [place] [address]DrGrayson Linares vag by NAANegativeNormalNegativeCleveland Clinic Mentor HospitalComment on above:Performed By: #### CTVNGNA ####[facility] [address] [place] [address]DrGrayson LeyvaC AUTO DIFFon [id number] #0.0 103/ulNormal0.0-0.1 The [facility] HospitalComment on above:Performed By: #### CBC #### [facility] [address] [address] [address] Swapna SeverinoBasophils/100 WBC (Bld)0.6 %Normal0.2-2.0The [facility] Comment on above:Performed By: #### CBC #### [facility] [address] [place] [address] Dr. Swapna Dumont #0.4 103/ulNormal0.0-0.7The [facility] HospitalComment on above: Performed By: #### CBC #### [facility] [address] [place] [address] Dr. Swapna Mcclellandosinophils/100 WBC (Bld)6.3 %Normal0.9-7.0The [facility] Comment on above:Performed By: #### CBC #### [facility] [address] [place] [address] Dr. Swapna Mcclellandrythrocyte distribution width (RBC) [Ratio]11.9 %Pcvpvf75.0-15.0 The [facility] HospitalComment on above:Performed By: #### CBC #### [facility] [address] [place] [address] Dr. Swapna SeverinoHematocrit (Bld) [Volume fraction]39.8 %Yuaxfg03.0-48.0The [facility] HospitalComment on above:Performed By: #### CBC #### [facility] [address] [place] [address] Dr. Swapna SeverinoHemoglobin (Bld) [Mass/Vol]13.9 g/dBQqrhsc01.0-16.0The [facility] HospitalComment on above:Performed By: #### CBC #### [facility] [address] [place] [address] Dr. Swapna Flores #0.01 10e3/ulNormal0.00-0.03The [facility] HospitalComment on above:Performed By: #### CBC #### [facility] [address] [place] [address] Dr. Swapna Flores %0.2 %Normal0.0-0.5The [facility] HospitalComment on above: Performed By: #### CBC #### [facility] [address] [place] [address] Dr. Yilan ChangLYMPH #2.4 103/ulNormal1.2-3.8The [facility] HospitalComment on above:Performed By: #### CBC #### [facility] [address] [place] [address] Dr. Swapna Torresmphocytes/100 WBC (Bld)37.4 %Jiuboi87.5-60.0The [facility] HospitalComment on above:Performed By: #### CBC #### [facility] [address] [place] [address] Dr. Swapna Velasquez DIFF REQNONormalThe [facility] HospitalComment on above: Performed By: #### CBC #### [facility] [address] [place] [address] Dr. Swapna Noel (RBC) [Entitic mass]31.0 uyXbgstt41.7-34.0The [facility] HospitalComment on above:Performed By: #### CBC #### [facility] [address] [place] [address] Dr. Swapna Noel (RBC) [Mass/Vol]34.9 g/aKEzeqlf85.9-35.2The [facility] HospitalComment on above:Performed By: #### CBC #### [facility] [address] [place] [address] Dr. Swapna Winston (RBC) [Entitic vol]88.6 dZFzuvvd71.0-99.0The [facility] HospitalComment on above:Performed By: #### CBC #### [facility] [address] [place] [address] Dr. Swapna Garrison #0.6 103/ulNormal0.3-0.8The [facility] HospitalComment on above:Performed By: #### CBC #### [facility] [address] [place] [address] Dr. Swapna Englishocytes/100 WBC (Bld)8.5 %Normal1.7-12.0The [facility] Comment on above:Performed By: #### CBC #### [facility] [address] [place] [address] Dr. Swapna Serrano #3.1 103/ulNormal1.4-6.5The [facility] HospitalComment on above:Performed By: #### CBC #### [facility] [address] [place] [address] Dr. Swapna Valdezutrophils/100 WBC (Bld)47.0 %Ywbfmf45.0-75.0The [facility] HospitalComment on above:Performed By: #### CBC #### [facility] [address] [place] [address] Dr. Swapna Higginslet mean volume (Bld) [Entitic vol]8.5 fLCritically low 9.5-13.5The [facility] HospitalComment on above:Performed By: #### CBC #### [facility] [address] [place] [address] Dr. Swapna NavaT363 103/ylLwexzj221-973Rmu [facility] HospitalComment on above: Performed By: #### CBC #### [facility] [address] [place] [address] Dr. Swapna SeverinoRBC4.49 106/ulNormal4.20-5.40The [facility] HospitalComment on above:Performed By: #### CBC #### [facility] [address] [place] [address] Dr. Swapna SeverinoWBC6.5 103/ulNormal4.0-11.0The [facility] HospitalComment on above: Performed By: #### CBC #### [facility] [address] [place] [address] Dr. Swapna SeverinoCYTOLOGYon [id number] TO REF LAB07/02/2022NoLakeHealth Beachwood Medical CenterComment on above:Performed By: #### CYTO ####[facility] [address] [address]Dr. Swapna Powers HCG QUAL on 57-76-2103VBBKZRMGV, QUALNegativeNormalNEGATIVEThe [facility] HospitalComment on above:Performed By: #### PREG #### [facility] [address] [place] [address] Dr. Swapna SeverinoCovid-19 PCR (CVDJAMAICA PLAIN [facility])on 21-56-0235HNXI-CoV-2 (COVID-19) RNA HALLEY+probe Ql (Unsp spec)Not detectedNormalNOT DETECTEDThe [facility] Comment on above:Result Comment: This test is not yet approved or cleared by the [place] FDA. When there are no FDA-approved or cleared tests available, and other criteria are met, FDA can make tests available under an emergency access mechanism called an Emergency Use Authorization (EUA). The EUA for this test is supported by the [place] of Health and Human Service's (HHS's) declaration that circumstances exist to justify the emergency use of in vitro diagnostics for the detection and/or diagnosis of the virus that causes COVID- 19. This EUA will remain in effect (meaning [...] of clinical signs and symptoms consistent with SARS-CoV-2.Performed By: #### [facility] #### [facility] [address] [place] [address] Dr. Swapna SeverinoUS PELVIS AND TRANSVAGon [id number] PELVIS AND TRANSVAG EXAMINATION: US PELVIS AND [...] Electronically authenticated by: SULY ANDERSON Date: 2022-06-17 07:48NormalThe [facility] AUTO DIFFon [id number] #0.0 103/ulNormal0.0-0.1[facility] HospitalComment on above:Performed By: #### CBC #### [facility] [address] [place] [address] Dr. Swapna SeverinoBasophils/100 WBC (Bld)0.5 %Normal0.2-2.0The [facility] Comment on above:Performed By: #### CBC #### [facility] [address] [place] [address] Dr. Swapna Dumont #0.4 103/ulNormal0.0-0.7The [facility] HospitalComment on above: Performed By: #### CBC #### [facility] [address] [place] [address] Dr. Swapna Mcclellandosinophils/100 WBC (Bld)6.8 %Normal0.9-7.0The [facility] Comment on above:Performed By: #### CBC #### [facility] [address] [place] [address] Dr. Swapna Mcclellandrythrocyte distribution width (RBC) [Ratio]11.9 %Iuhxiv18.0-15.0 The [facility] HospitalComment on above:Performed By: #### CBC #### [facility] [address] [place] [address] Dr. Swapna SeverinoHematocrit (Bld) [Volume fraction]38.0 %Ewahfp40.0-48.0The [facility] HospitalComment on above:Performed By: #### CBC #### [facility] [address] [place] [address] Dr. Swapna SeverinoHemoglobin (Bld) [Mass/Vol]13.2 g/cCPfypbc62.0-16.0The [facility] HospitalComment on above:Performed By: #### CBC #### [facility] [address] [place] [address] Dr. Swapna Flores #0.01 10e3/ulNormal0.00-0.03The [facility] HospitalComment on above:Performed By: #### CBC #### [facility] [address] [place] [address] Dr. Swapna Flores %0.2 %Normal0.0-0.5The [facility] HospitalComment on above: Performed By: #### CBC #### [facility] [address] [place] [address] Dr. Swapna Camejo #1.7 103/ulNormal1.2-3.8The [facility] HospitalComment on above:Performed By: #### CBC #### [facility] [address] [place] [address] Dr. Swapna Starkhocytes/100 WBC (Bld)26.9 %Carmcb30.5-60.0The [facility] HospitalComment on above:Performed By: #### CBC #### [facility] [address] [place] [address] Dr. Swapna NicoleUAL DIFF REQNONormalThe [facility] HospitalComment on above: Performed By: #### CBC #### [facility] [address] [place] [address] Dr. Swapna Bergeron (RBC) [Entitic mass]31.4 ncFqpavt99.7-34.0The [facility] HospitalComment on above:Performed By: #### CBC #### [facility] [address] [place] [address] Dr. Swapna Noel (RBC) [Mass/Vol]34.7 g/rJRrzjjk03.9-35.2The [facility] HospitalComment on above:Performed By: #### CBC #### [facility] [address] [place] [address] Dr. Swapna Noel (RBC) [Entitic vol]90.3 xZFjkgte35.0-99.0The [facility] HospitalComment on above:Performed By: #### CBC #### [facility] [address] [place] [address] Dr. Swapna Garrison #0.5 103/ulNormal0.3-0.8The [facility] HospitalComment on above:Performed By: #### CBC #### [facility] [address] [place] [address] Dr. Swapna Englishocytes/100 WBC (Bld)7.9 %Normal1.7-12.0The [facility] Comment on above:Performed By: #### CBC #### [facility] [address] [place] [address] Dr. Swapna Serrano #3.6 103/ulNormal1.4-6.5The [facility] HospitalComment on above:Performed By: #### CBC #### [facility] [address] [place] [address] Dr. Swapna Valdezutrophils/100 WBC (Bld)57.7 %Odptks73.0-75.0The [facility] HospitalComment on above:Performed By: #### CBC #### [facility] [address] [place] [address] Dr. Swapna Causey mean volume (Bld) [Entitic vol]8.6 fLCritically low 9.5-13.5The [facility] HospitalComment on above:Performed By: #### CBC #### [facility] [address] [place] [address] Dr. Swapna SeverinoPLT333 103/riPxfpih597-466Geb [facility] HospitalComment on above: Performed By: #### CBC #### [facility] [address] [place] [address] Dr. Swapna eSverinoRBC4.21 106/ulNormal4.20-5.40The [facility] HospitalComment on above:Performed By: #### CBC #### [facility] [address] [place] [address] Dr. Swapna SeverinoWBC6.2 103/ulNormal4.0-11.0The [facility] HospitalComment on above: Performed By: #### CBC #### [facility] [address] [place] [address] Dr. Swapna Montero URINE PROFILEon 07-24-3958Nocgatpco Ql (U)NegativeNormal NEGATIVECleveland Clinic Mentor HospitalComment on above:Performed By: #### PREGU, ERUR #### [facility] [address] [place] [address] Dr. Swapna SeverinoClarity (U)CLEARNormalCLEARCleveland Clinic Mentor HospitalComment on above: Performed By: #### PREGU, ERUR #### [facility] [address] [address] [address] Swapna Toribio (U)LT. YELLOWNormalYELLOWCleveland Clinic Mentor HospitalComment on above:Performed By: #### PREGU, ERUR #### [facility] [address] [place] [address] Dr. Swapna SimentalDA micrscopic examination will be performed if indicated. NormalThe [facility] HospitalComment on above:Performed By: #### PREGU, ERUR #### [facility] [address] [place] [address] Dr. Swapna SeverinoGlucose Ql (U)NegativeNormalNEGATIVECleveland Clinic Mentor HospitalComment on above:Performed By: #### PREGU, ERUR #### [facility] [address] [place] [address] Dr. Swapna SeverinoHemoglobin Ql (U)NegativeNormalNEGATIVEChildren'S Hospital Of Columbus on above:Performed By: #### PREGU, ERUR #### [facility] [address] [address] [address] Swapna SeverinoKetones Ql (U)NegativeNormalNEGATIVECleveland Clinic Mentor HospitalComment on above:Performed By: #### PREGU, ERUR #### [facility] [address] [address] [address] Swapna SeverinoLEUKOCYTESNegativeNormalNEGATIVECleveland Clinic Mentor HospitalComment on above:Performed By: #### PREGU, ERUR #### [facility] [address] [place] [address] Dr. Swapna SeverinoNitrite Ql (U)NegativeNormalNEGATIVECleveland Clinic Mentor HospitalComment on above:Performed By: #### PREGU, ERUR #### [facility] [address] [address] [address] Swapna SeverinopH (U)6.5 [pH]Normal5-9The [facility] HospitalComment on above: Performed By: #### PREGU, ERUR #### [facility] [address] [address] [address] Swapna SeverinoSPEC GRAVITY1.054Picbbl5.005-<=1.025The [facility]oort HospitalComment on above:Performed By: #### PREGU, ERUR #### [facility] [address] [address] [address] Swapna SeverinoUA PROTEINNegativeNormalNEGATIVE/ TRACEThe [facility] on above:Performed By: #### PREGU, ERUR #### [facility] [address] [address] [address] Swapna SeverinoUR MICRO INDNOT INDICATEDNormalThe [facility] HospitalComment on above:Performed By: #### PREGU, ERUR #### [facility] [address] [address] [address] Swapna SeverinoUrobilinogen Qn (U)0.2 {Arpan'U}/dLNormal0.2 - 1.0The [facility] HospitalComment on above:Performed By: #### PREGU, ERUR #### [facility] [address] [address] [address] Swapna SeverinoPREGNANCY URon 39-83-0010NAHKTLUJO, QUALNegativeNormalNEGATIVEThe [facility] HospitalComment on above:Performed By: #### PREGU, ERUR #### [facility] [address] [address] [address] Swapna SeverinoPROManpreet CHEM 8 (BAS METB)on 88-73-1788Mqwah gap [Moles/Vol]9.2 mmol/LNormalThe [facility] HospitalComment on above:Performed By: #### BMP ####[facility] [address] StreetB[address]vue, [place] [address]Jx. Yilan ChangCalcium [Mass/Vol]8.7 mg/dLNormal8.5-10.1The [facility] HospitalComment on above:Performed By: #### BMP ####[facility] Q[address] [place], [place] [address]Dr.Yilan ChangChloride [Moles/Vol]103 mmol/LNormal 98-107The [facility] HospitalComment on above:Performed By: #### BMP ####[facility] [address] [place], [place] [address]Dr.Yilan ChangCO2 [Moles/Vol]31.1 mmol/KEmvyso32.0-32.0The [facility] HospitalComment on above: Performed By: #### BMP ####[facility] [address] [place], [place] [address]Dr.Yilan ChangCreatinine [Mass/Vol]0.55 mg/dLNormal 0.55-1.02The [facility] HospitalComment on above:Performed By: #### BMP ####[facility] [address] [place], [place] [address]Dr. Yilan ChangEGFR-AF EGYPTIAN>60Normal>=60The [facility] HospitalComment on above: Performed By: #### BMP ####[facility] [address] [place], [place] [address]Dr.Yilan ChangEGFR-NON AF EGYPTIAN>60Normal>=60The [facility] HospitalComment on above:Performed By: #### BMP ####[facility] [address] [place], [place] [address]Dr.Yilan ChangGlucose [Mass/Vol]79 mg/sGUyijgf36-865Npd [facility] HospitalComment on above:Performed By: #### BMP ####[facility] [address] [place], [place] [address]Dr.Yilan ChangPotassium [Moles/Vol]4.3 mmol/LNormal3.5-5.1The [facility] HospitalComment on above:Performed By: #### BMP ####[facility] [address] [place], [place] [address]Dr.Yilan ChangSodium [Moles/Vol]139 mmol/UMaillg072-505Ytz [facility] HospitalComment on above: Performed By: #### BMP ####[facility] [address] [place], [place] [address]Sg.Blancalan ChangUrea nitrogen [Mass/Vol]8.0 mg/dLNormal 7.0-18.0The [facility] HospitalComment on above:Performed By: #### BMP ####[facility] [address] [place], [place] [address]Cu. Blancalan ChangUrea nitrogen/Creatinine [Mass ratio]14.5 mg/mgNoLakeHealth Beachwood Medical CenterComment on above:Performed By: #### BMP ####[facility] [address] [place], [place] [address]Tq.Swapna SeverinoUS PELVIS TRANSVAGon 15-86-8638EJ PELVIS TRANSVAGEXAMINATION: US PELVIS TRANSVAG HISTORY: Lower abdominal pain [...] left ovarian cyst/follicle Electronically authenticated by: KRISTEN CUTLER Date: 2022-06-11 12:44[facility] HospitalUS PELVIS AND TRANSVAGon 98-33-6779VP PELVIS AND TRANSVAG EXAMINATION: US PELVIS AND [...] of the IUD Electronically authenticated by: KRISTEN CUTLER Date: 2022-05-11 14:02[facility] CenterOG PANEL 2: 21 to 29on 03-12-2022..NormalThe [facility] on above:Performed By: #### [id number] #### [facility] [address] [place] [address] Dr. Swapna SeverinoAge Gdln ACOG Bjxbbpm49-85XgpawaVcyUniversity Hospitals Geauga Medical Center on above:Performed By: #### [id number] #### [facility] [address] [place] [address] Dr. Swapna SeverinoDIAGNOSIS:CommentAvita Health System Ontario Hospital on above: Result Comment: NEGATIVE FOR INTRAEPITHELIAL LESION OR MALIGNANCY.Performed By: #### [id number] #### [facility] [address] [place] [address] Dr. Swapna SeverinoMethodology:CommentAvita Health System Ontario Hospital on above: Result Comment: This liquid based ThinPrep(R) pap test was screened with the use of an image guided system.Performed By: #### [id number] #### [facility] [address] [place] [address] Dr. Swapna SeverinoNote:CommentAvita Health System Ontario Hospital on above:Result Comment: The Pap smear is a screening test designed to aid in the detection of premalignant and malignant conditions of the uterine cervix. It is not a diagnostic procedure and should not be used as the sole means of detecting cervical cancer. Both false-positive and false-negative reports do occur. .Performed By: #### [id number] #### [facility] [address] [place] [address] Dr. Swapna SeverinoPerformed by:CommentAvita Health System Ontario Hospital on above: Result Comment: Christian Baldo, Life Insurance Actuary (ASCP)Performed By: #### [id number] #### [facility] [address] [place] [address] Dr. Swapna SeverinoReflaura Criteria:CommentAvita Health System Ontario Hospital on above:Result Comment: The HPV DNA reflex criteria were not met with this specimen result therefore, no HPV testing was performed. .Performed By: #### [id number] #### [facility] [address] [place] [address] Dr. Swapna SeverinoSpecimen adequacy:CommentAvita Health System Ontario Hospital on above:Result Comment: Satisfactory for evaluation. Endocervical and/or squamous metaplastic cells (endocervical component) are present.Performed By: #### [id number] #### [facility] [address] [place] [address] Dr. Swapna SeverinoCovid-19 PCR (CVDTB)on 90-50-8391HGRJ-CoV-2 (COVID-19) RNA HALLEY+probe Ql (Unsp spec)DetectedCritically abnormalNOT DETECTEDThe [facility] on above:Result Comment: This test is not yet approved or cleared by the [place] FDA. When there are no FDA-approved or cleared tests available, and other criteria are met, FDA can make tests available under an emergency access mechanism called an Emergency Use Authorization (EUA). The EUA for this test is supported by the [place] of Health and Human Service's (HHS's) declaration [...] no longer be used). Performed By: #### [id number] #### [facility] [address] [place] [address] Dr. Swapna SeverinoCBC auto differentialOrdered By: Estuardo Carter on 10-10-2020 Absolute Eos #0.19[facility] Work Phone: absolute Immature Granulocyte<0.03[facility] Work Phone: absolute Lymph #1.98[facility] Phone: absolute [place] #0.45[facility] Phone: basophils (Bld) [#/Vol]0.03 10*3/uLCommunity Regional [facility] CenterBio[facility]rix Phone: basophils/100 WBC (Bld)1 %0 - 2 %[employer] Phone: differential TypeNOT REPORTEDMerBioVentrix Phone: eosinophils/100 WBC (Bld)3 %1 - 4 %[employer] Phone: Hematocrit (Bld) [Volume fraction]40.1 %36.3 - 47.1 % [employer] Phone: Hemoglobin.gastrointestinal spec 1 Ql (Stl)13.8 g/dL 11.9 - 15.1 g/dLCommunity [facility] CenterBio[facility]entrix Phone: Immature granulocytes/100 WBC (Bld)0 %0[facility] Phone: Interpretation and review of laboratory results AbnormalCommunity Regional Medical CenterBioVentrix Phone: lymphocytes/100 WBC (Bld)32 %25 - 45 %[employer] Phone: MCH (RBC) [Entitic mass]31.4 pg25.2 - 33.5 pgCommunity Regional Medical CenterBioVentrix Phone: MCHC (RBC) [Mass/Vol]34.4 g/dL28.4 - 34.8 g/dLCommunity Regional Medical CenterBioVentrix Phone: MCV (RBC) [Entitic vol]91.1 fL82.6 - 102.9 fLCommunity Regional Medical CenterBioVentrix Phone: Monocytes/100 WBC (Bld)7 %2 - 8 %[employer] Phone: NRBC Automated0.00.0 per 100 WBCCommunity Regional Medical CenterBioVentrix Phone: Platelet distribution width (Bld) [Ratio]11.4 %Low11.8 - 14.4 %[employer] Phone: [phone] EstimateNOT REPORTEDCommunity Regional Medical CenterBioVentrix Phone: [phone] mean volume (Bld) [Entitic vol]8.4 fL8.1 - 13.5 fLCommunity Regional Medical CenterBioVentrix Phone: [phone] (Bld) [#/Vol]365 10*3/uLGingerd Phone: RBC (Bld) [#/Vol]4.40 10*6/uL3.95 - 5.11 m/uLCommunity Regional Medical CenterBio[facility]entrix Phone: [phone] (Bld) [#/Vol]NOT REPORTEDCommunity [facility] Medical CenterBio[facility]rix Phone: Segmented neutrophils/100 WBC (Bld)57 %34 - 64 %[employer] Phone: [phone] Absolute3.56[facility] Phone: WBC (Bld) [#/Vol]6.2 10*3/uLGingerd Phone: [phone] (Bld) [#/Vol]NOT REPORTEDCommunity Regional Medical CenterBioVentrix Phone: CBC with Diffon [id number]. Basophil0.03 k/uLNormal 0.00-0.20[facility] HospitalComment on above:Performed By: #### SED, CDP, CP, HCG #### [facility] [address] [place] [address] Microbiology Lab Technician: Herlinda Mahoney.Imm.Granulocyte<0.24Oahvvf4.00-0.30[facility] HospitalComment on above:Performed By: #### SED, CDP, CP, HCG #### [address] [place], [place] [address] Microbiology Lab Technician: Herlinda Mahoney.Neutrophil (Seg)3.56 k/uLNormal1.80-8.00[facility] HospitalComment on above:Performed By: #### SED, CDP, CP, HCG #### [address] [place], [place] [address] Microbiology Lab Technician: Kristen Howe MDBasophils/100 WBC (Bld)1 %Normal0-2[facility] HospitalComment on above:Performed By: #### SED, CDP, CP, HCG #### [address] [place] [address] Microbiology Lab Technician: Kristen Howe MDEosinophils (Bld) [#/Vol]0.19 10*3/uLNormal 0.00-0.44[facility] HospitalComment on above:Performed By: #### SED, CDP, CP, HCG #### [address] [place], [place] [address] Microbiology Lab Technician: AMY Mahoneyosinophils/100 WBC (Bld)3 %Normal1-4MerParma [facility] General Hospital HospitalComment on above:Performed By: #### SED, CDP, CP, HCG #### [address] [place], [place] [address] Microbiology Lab Technician: Kristen Howe MDErythrocyte distribution width (RBC) [Ratio]11.4 % Low11.8-14.4[facility] HospitalComment on above:Performed By: #### SED, CDP, CP, HCG #### [address] [place] [address] Microbiology Lab Technician: Kristen Howe MDHematocrit (Bld) [Volume fraction]40.1 %Normal 36.3-47.1[facility] HospitalComment on above:Performed By: #### SED, CDP, CP, HCG #### [address] [place], [place] [address] Microbiology Lab Technician: Kristen Howe MDHemoglobin (Bld) [Mass/Vol]13.8 g/dLNormal 11.9-15.1MercHolmes County [facility] HospitalComment on above:Performed By: #### SED, CDP, CP, HCG #### [address] [place], [place] [address] Microbiology Lab Technician: Kristen Howe MDImmature granulocytes/100 WBC (Bld)0 %Npeqkl3GtydqCleveland Clinic Medina HospitalComment on above:Performed By: #### SED, CDP, CP, HCG #### [address] [place] [address] Microbiology Lab Technician: Kristen Howe MDLymphocytes (Bld) [#/Vol]1.98 10*3/uLNormal 1.20-5.20[facility] HospitalComment on above:Performed By: #### SED, CDP, CP, HCG #### [address] [place] [address] Microbiology Lab Technician: Talisha Mahoneymphocytes/100 WBC (Bld)32 %Rbuakf62-87Nrqgp [facility] HospitalComment on above:Performed By: #### SED, CDP, CP, HCG #### [address] [place], [place] [address] Microbiology Lab Technician: BECK MahoneyCH (RBC) [Entitic mass]31.4 imXezxtf87.2-33.5 [facility] HospitalComment on above:Performed By: #### SED, CDP, CP, HCG #### [address] [place] [id number] Microbiology Lab Technician: YONI MahoneyC (RBC) [Mass/Vol]34.4 g/qJJihttp62.4-34.8[facility] Hospitalment on above:Performed By: #### SED, CDP, CP, HCG #### [address] [place], [place] [address] Microbiology Lab Technician: BECK MahoneyCV (RBC) [Entitic vol]91.1 qJKutfpc95.6-102.[address] [facility] Hospitalment on above:Performed By: #### SED, CDP, CP, HCG #### [address] [place], [facility]83 Microbiology Lab Technician: BECK Mahoneyonocytes (Bld) [#/Vol]0.45 10*3/uLNormal0.10-1.40 [facility] on above:Performed By: #### SED, CDP, CP, HCG #### [address] [place] [address] Microbiology Lab Technician: BECK Mahoneyonocytes/100 WBC (Bld)7 %Normal2-8[facility] HospitalCompontiac general hospital on above:Performed By: #### SED, CDP, CP, HCG #### [address] [place], [place] [address] Microbiology Lab Technician: Kristen Howe MDNeutrophil (Seg)57 %Uhxihf27-97FdlfiYale New [facility] Psychiatric Hospital on above:Performed By: #### SED, CDP, CP, HCG #### [address] [place], [facility]83 Microbiology Lab Technician: Krisetn Howe MDNRBC Automated0.0 per 100 WBCNormal0.0[facility] HospitalCompontiac general hospital on above:Performed By: #### SED, CDP, CP, HCG #### [address] [place], [place] [id number] Microbiology Lab Technician: KAELA Mahoneylatelet mean volume (Bld) [Entitic vol]8.4 fL Normal8.1-13.5[facility] HospitalComment on above:Performed By: #### SED, CDP, CP, HCG #### [facility] [address] [place] [address] [place] [address] Microbiology Lab Technician: Christiano Mahoney (d) [#/Vol]365 10*3/oCLkdfiq592-594 [facility] HospitalComment on above:Performed By: #### SED, CDP, CP, HCG #### [address] [place] [address] Microbiology Lab Technician: LUCIA Mahoney (Bld) [#/Vol]4.40 10*6/uLNormal3.95-5.11[facility] HospitalComment on above:Performed By: #### SED, CDP, CP, HCG #### [address] [place] [address] Microbiology Lab Technician: GRACIE Mahoney (d) [#/Vol]6.2 10*3/uLNormal4.5-13.5[facility] HospitalComment on above:Performed By: #### SED, CDP, CP, HCG #### [address] [place] [address] Microbiology Lab Technician: Bill Mahoney PerformedNOT REPORTEDNormalMercy Ridgeview HospitalComment on above:Performed By: #### SED, CDP, CP, HCG #### [address] [place] [address] Microbiology Lab Technician: Danni Mahoney EstimateNOT REPORTEDNormalMerParma Community General Hospital HospitalComment on above:Performed By: #### SED, CDP, CP, HCG #### [address] [place] [address] Microbiology Lab Technician: LUCIA Mahoney morphology finding Nom (Bld)NOT REPORTEDNormal [facility] HospitalComment on above:Performed By: #### SED, CDP, CP, HCG #### [facility] [address] [place] [address] Microbiology Lab Technician: GRACIE Mahoney MorphologyNOT REPORTEDNormalMercy Ridgeview HospitalComment on above:Performed By: #### SED, CDP, CP, HCG #### [facility] [address] [place] [address] Microbiology Lab Technician: Kristen Howe, MDCT ABDOMEN PELVIS W IV CONTRASTon [id number] ABDOMEN PELVIS W IV CONTRASTEXAMINATION: CT OF THE ABDOMEN AND PELVIS WITH [...] variant arcuate configuration of the uterine cavity. Peritoneum/Retroperitoneum: No free air or free fluid. The [...] Signed by: Charles Virgen MD 10/10/[address] Vincent'S Medical CenterCT ABDOMEN PELVIS W IV CONTRAST Additional Contrast? 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 This results in compressive affects on the right ureter and mild hydronephrosis. Follow-up with gynecology is recommended due to the large sizeof this mass and associated compressive affects.[employer] Phone: eXAMINATION: CT OF THE ABDOMEN AND PELVIS WITH [...] - unselect if not a suspected or confir med emergency medical condition->Emergency Medical Condition (MA) FINDINGS: Lower Chest: The visualized lung bases are clear. Organs: Mild right hydronephrosis and hydroureter, likely secondary tocompressive affects of the pelvic mass. The liver, [...] variant arcuate configuration of the uterine cavity. Peritoneum/Retroperitoneum: No free air or free fluid. The aorta is normal in caliber. The visceral branches are patent. No lymphadenopathy. Bones/Soft Tissues: No abnormality identified.[employer] Phone: edi, Mhpn Incoming Radiant Results From [employer] - 10/10/2020 3:13 PM EDT EXAMINATION: CT [...] variant arcuate configuration of the uterine cavity. Peritoneum/Retroperitoneum: No free air or free fluid. The [...] of this mass and associated compressive affects. [employer] Work Phone: comp Metabolic Profon 10-10-2020(cont.)NormalMercy St. Vincent'S Medical CenterComment on above:Result Comment: Average GFR for 20-29 years old: 116 mL/min/1.73sq m Chronic Kidney Disease: <60 mL/min/1.73sq m Kidney failure: <15 mL/min/1.73sq m eGFR calculated using average adult body mass. Additional eGFR calculator available at: http://www.[employer].com/multiple_crcl_2012.htmPerformed By: #### SED, CDP, CP, HCG #### [address] [place] [address] Microbiology Lab Technician: Kristen Howe MDAlbumin [Mass/Vol]4.5 g/dLNormal3.5-5.2[facility] HospitalComment on above:Performed By: #### SED, CDP, CP, HCG #### [address] [place] [address] Microbiology Lab Technician: Kristen Howe MDAlbumin/Glob Ratio2.2Pthvpb8.0-2.5MerPar[facility] HospitalComment on above:Performed By: #### SED, CDP, CP, HCG #### [address] [place] [address] Microbiology Lab Technician: Kristen Howe MDAlkaline Phos62 U/AUpnvbm16-090Xxsgl [facility] HospitalComment on above:Performed By: #### SED, CDP, CP, HCG #### [address] [place] [address] Microbiology Lab Technician: Kristen Howe MDALT [Catalytic activity/Vol]9 U/LNormal5-33MerPar[facility] HospitalComment on above:Performed By: #### SED, CDP, CP, HCG #### [address] [place] [address] Microbiology Lab Technician: Kristen Howe MDAnion gap [Moles/Vol]7 mmol/LLow9-17MerPar[facility] HospitalComment on above:Performed By: #### SED, CDP, CP, HCG #### [address] [place], [place] [id number] Microbiology Lab Technician: Kristen Sturtz, MDAST [Catalytic activity/Vol]16 U/LNormal<32[facility] HospitalComment on above:Performed By: #### SED, CDP, CP, HCG #### [address] [place], [place] [address] Microbiology Lab Technician: Kristen Howe MDBilirubin [Mass/Vol]0.52 mg/dLNormal0.3-1.2MHarrison [facility] HospitalComment on above:Performed By: #### SED, CDP, CP, HCG #### [address] [place] [address] Microbiology Lab Technician: Kristen Howe MDBUN/CRE Nfpvx13Ulxkcw3-28Rvlrf [facility] Comment on above:Performed By: #### SED, CDP, CP, HCG #### [address] [place], [place] [id number] Microbiology Lab Technician: NAHOMY Mahoneyalcium [Mass/Vol]9.8 mg/dLNormal8.6-10.4[facility] HospitalComment on above:Performed By: #### SED, CDP, CP, HCG #### [address] [place] [address] Microbiology Lab Technician: NAHOMY Mahoneyhloride [Moles/Vol]102 mmol/VPdkeqv05-425XaxkqCleveland Clinic Medina HospitalComment on above:Performed By: #### SED, CDP, CP, HCG #### [address] [place] [address] Microbiology Lab Technician: Kristen Howe MDCO2 [Moles/Vol]31 mmol/EAayinh00-77ZkjecCleveland Clinic Medina HospitalComment on above:Performed By: #### SED, CDP, CP, HCG #### [address] [place], [place] [id number] Microbiology Lab Technician: NAHOMY Mahoneyreatinine [Mass/Vol]0.64 mg/dLNormal0.50-0.90 [facility] HospitalComment on above:Performed By: #### SED, CDP, CP, HCG #### [address] [place], [place] [address] Microbiology Lab Technician: SAIMA Mahoney, Amer>60Normal>60[facility] Comment on above:Performed By: #### SED, CDP, CP, HCG #### [address] [place], [place] [address] Microbiology Lab Technician: SAIMA Mahoney,non Amer>60Normal>60[facility] HospitalComment on above:Performed By: #### SED, CDP, CP, HCG #### [address] [place], [facility] Microbiology Lab Technician: Kristen Howe MDGlucose [Mass/Vol]94 mg/cNYudfbu37-90Xhvkh [facility] HospitalComment on above:Performed By: #### SED, CDP, CP, HCG #### [address] [place] [address] Microbiology Lab Technician: Kristen Howe MDPotassium [Moles/Vol]3.5 mmol/LLow3.7-5.3[facility] HospitalComment on above:Performed By: #### SED, CDP, CP, HCG #### [address] [place] [address] Microbiology Lab Technician: Kristen Howe MDProtein [Mass/Vol]6.8 g/dLNormal6.4-8.3[facility] HospitalComment on above:Performed By: #### SED, CDP, CP, HCG #### [address] [place], [place] [id number] Microbiology Lab Technician: Kristen Howe MDSodium [Moles/Vol]140 mmol/XWuhmdv513-616Mnmmx [facility] HospitalComment on above:Performed By: #### SED, CDP, CP, HCG #### [facility] [address] [place] [address] [place] [address] Microbiology Lab Technician: EULOGIO Mahoneytaging:[facility] St. Rita's Medical CenterComment on above:Result Comment: Stage 1: Some kidney damage normal GFR Stage 2: Mild kidney damage GFR 60-89 Stage 3: Moderate kidney damage GFR 30-59 Stage 4: Severe kidney damage GFR 15-29 Stage 5: Severe kidney damage GFR <15 ESRD - chronic treatment by dialysis or transplantPerformed By: #### SED, CDP, CP, HCG #### [facility] [address] [place] [address] [place] [address] Microbiology Lab Technician: rKisten Howe MDUrea nitrogen [Mass/Vol]8 mg/dLNormal6-20[facility] HospitalComment on above:Performed By: #### SED, CDP, CP, HCG #### [address] [place] [address] Microbiology Lab Technician: Kristen Howe [facility]GAomprehensive Metabolic PanelOrdered By: Estuardo Carter on [id number] [Mass/Vol]4.5 g/dL3.5 - 5.2 g/dLTogus Va Medical Center [employer] Work Phone: albumin/Globulin [Mass ratio]2.0 {ratio}[facility] [employer] Phone: aLP (Bld) [Catalytic activity/Vol]62 U/L35 - 104 U/L [facility] [employer] Work Phone: aLT [Catalytic activity/Vol]9 U/L5 - 33 U/LMgenesis hospital [employer] Work Phone: anion gap [Moles/Vol]7 mmol/LLow9 - 17 mmol/LMgenesis hospital [employer] Work Phone: aST [Catalytic activity/Vol]16 U/L<32[facility] Phone: bilirubin [Mass/Vol]0.52 mg/dL0.3 - 1.2 mg/dLTogus Va Medical Center [facility] Work Phone: calcium [Mass/Vol]9.8 mg/dL8.6 - 10.4 mg/dLTogus Va Medical Center [employer] Phone: chloride [Moles/Vol]102 mmol/L98 - 107 mmol/LMgenesis hospital [employer] Work Phone: cO2 [Moles/Vol]31 mmol/L20 - 31 mmol/LMgenesis hospital [employer] Work Phone: creatinine [Mass/Vol]0.64 mg/dL0.50 - 0.90 mg/dLTogus Va Medical Center [employer] Phone: Free PSA/Total PSA [Mass fraction]6.8 g/dL6.4 - 8.3 g/dLTogus Va Medical Center [employer] Phone: GFR >60>60 mL/minTogus Va Medical Center [employer] Phone: GFR Non->60>60 mL/minTogus Va Medical Center [employer] Phone: Glucose [Mass/Vol]94 mg/dL70 - 99 mg/dLTogus Va Medical Center [employer] Phone: Interpretation and review of laboratory results AbnormalTogus Va Medical Center [employer] Phone: potassium [Moles/Vol]3.5 mmol/LLow3.7 - 5.3 mmol/L [facility] [employer] Phone: sodium [Moles/Vol]140 mmol/L135 - 144 mmol/LMgenesis hospital [employer] Work Phone: Urea nitrogen (BldV) [Mass/Vol]8 mg/dL6 - 20 mg/dL [facility] [employer] Phone: Urea nitrogen/Creatinine (Bld) [Mass ratio]13[facility] [employer] Phone: HCY Qualitative, SerumOrdered By: Estuardo Carter on [id number] QualNegativeNEGATIVECommunity Regional Medical CenterBioVentrix Phone: comment on above:Specimens with hCG levels near the threshold of the test (25 mIU/mL) may give a negative or indeterminate result. In such cases, another test should be performed with a new specimen in 48-72 hours. If early is suspected clinically in this setting, correlation with quantitative serum b-hCG level is suggested. [facility] has confirmed the use of plasma for this test. This has not been cleared or approved by the U.S. Food and Drug Administration. The FDA has determined that such clearance is not necessary. HCG Screen, Bloodon [id number] Screen, BloodNegativeNormalNEGMercy St. Vincent'S Medical CenterComment on above:Result Comment: Specimens with hCG levels near the threshold of the test (25 mIU/mL) may give a negative or indeterminate result. In such cases, another test should be performed with a new specimen in 48-72 hours. If early is suspected clinically in this setting, correlation with quantitative serum b-hCG level is suggested. [facility] has confirmed the use of plasma for this test. This has not been cleared or approved by the U.S. Food and Drug Administration. The FDA has determined that such clearance is not necessary.Performed By: #### SED, CDP, CP, HCG #### [facility] [address] [place] [address] [place] [address] Microbiology Lab Technician: Kristen Howe MDLaboratory - Chemistry and Chemistry - challenge Ordered By: Estuardo Carter on [id number]/1.73 sq M.predicted MDRD (S/P/Bld) [Vol rate/Area][facility] Work Phone: comment on above:Average GFR for 20-29 years old: 116 mL/min/1.73sq m Chronic Kidney Disease: <60 mL/min/1.73sq m Kidney failure: <15 mL/min/1.73sq m eGFR calculated using average adult body mass. Additional eGFR calculator available at: http://www.[employer]/multiple_crcl_2012.htm Stage 1: Some kidney damage normal GFR Stage 2: Mild kidney damage GFR 60-89 Stage 3: Moderate kidney damage GFR 30-59 Stage 4: Severe kidney damage GFR 15-29 Stage 5: Severe kidney damage GFR <15 ESRD - chronic treatment by dialysis or transplant Microscopic UrinalysisOrdered By: Estuardo Carter on 10-10-2020-[facility] Work Phone: amorphous, UANOT REPORTEDNoneMercy Health Work Phone: bacteria, UANOT REPORTEDNoneMercy Health Work Phone: casts UANOT REPORTED/LPFMercy Health Work Phone: Urystals, UANOT REPORTEDNone /HPFMercy Health Work Phone: Apithelial Cells UA0 TO 2[facility] Work Phone: Mucus, UANOT REPORTEDNoneMercy Health Work Phone: Other Observations UANOT REPORTEDNOT REQ.[facility] Work Phone: MBC, UA20 TO 50[facility] Work Phone: Penal Epithelial, UANOT REPORTED0 /HPFMercy Health Work Phone: Trichomonas, UANOT REPORTEDNoneMercy Health Work Phone: WBC, UA0 TO 2[facility] Work Phone: Yeast, UANOT REPORTEDNoneMercy Health Work Phone: sedimentation Rateon 22-28-2341Idjgucqkageba Rate3 mm Normal0-20[facility] HospitalComment on above:Performed By: #### SED, CDP, CP, HCG #### [facility] [address] [place] [address] Microbiology Lab Technician: EULOGIO Mahoneyedimentation RateOrdered By: Estuardo Carter on 11-86-7369Gef Rate3 mm0 - 20 mmMercy Health Work Phone: surgical Pathologyon [id number] Pathology (NOTE) -- Diagnosis -- RIGHT OVARY, OOPHORECTOMY:- BENIGN DERMOID CYST (MATURE CYSTIC TERATOMA), MULTIPLE PIECES.- SEE MICROSCOPIC DESCRIPTION. Greyson Alan, Electronically Signed Out 10/14/2020 Clinical Information Pre-op Diagnosis: DERMOID CYST Operative [...] lining, is a 0.5 cm papillary focus. Minister sections 4cs with papillary focus included in [...] SURGICAL PATHOLOGY CONSULTATION Patient Name: FADIA LAN [facility] Rec: [id number] Path Number: [id number] [facility]ITALTok3n [facility] ANATOMIC PATHOLOGY [address] [place] [id number] NoThe Christ HospitalComment on above:Performed By: #### PPPVS #### [employer] [address] [place] [id number] Microbiology Lab Technician: DUSTIN Calzada w/Reflex Cultureon [id number] Acid,UrNegativeNormalNEGPromedica Fostoria Community Hospital HospitalComment on above:Performed By: #### SHERINE, UAX #### [facility] [address] [place] [address] [place] [address] Microbiology Lab Technician: Kristen Howe MDBilirubin, SemiQt,UrNegativeNormalNEGMerSaint Francis Hospital & Medical CenterComment on above:Performed By: #### UMICAO, UAX #### [facility] [address] [place] [address] Dr[address] [place], [place] [id number] Microbiology Lab Technician: NAHOMY Mahoneyolor (U)YELLOWNormalYELMerSaint Francis Hospital & Medical Center Comment on above:Performed By: #### UMICAO, UAX #### [facility] [address] [place] [address] [place] [address] Microbiology Lab Technician: Kristen Howe MDGlucose Ql (U)NegativeNormalNEGMerSaint Francis Hospital & Medical CenterComment on above:Performed By: #### UMICAO, UAX #### [facility] [address] [place] [address] Dr. [place], [facility] Microbiology Lab Technician: Kristen Howe MDHemoglobin, Ur3+AbnormalNEGCleveland Clinic Medina Hospital Comment on above:Performed By: #### UMICAO, UAX #### [facility] [address] [place] [address] Dr. [place], [facility] Microbiology Lab Technician: Kristen Howe MDLeukocyte esterase Test strip Ql (U)NegativeNormal NEGCleveland Clinic Medina HospitalComment on above:Performed By: #### UMICAO, UAX #### [facility] [address] [place] [address] Dr. [place], [facility] Microbiology Lab Technician: Kristen Howe MDNitrite,UrNegativeNormalNEGCleveland Clinic Medina Hospital Comment on above:Performed By: #### UMICAO, UAX #### [facility] [address] [place] [address] Dr[address] [place], [place] [id number] Microbiology Lab Technician: Kristen Howe [facility] HOSPITALH,Ur6.9Zqzmpn2.0-9.0Mercy St[address] Vincent'S Medical CenterComment on above:Performed By: #### UMICAO, UAX #### [facility] [address] [place] [address] [place] [address] Microbiology Lab Technician: KAELA Mahoneyrotein Ql (U)TRACEAbnormalNEGCleveland Clinic Medina HospitalComment on above:Performed By: #### UMICAO, UAX #### [facility] [address] [place] [address] [place] [address] Microbiology Lab Technician: EULOGIO Mahoneypec. [place],Ur1.637Yaxr6.010-1.020[facility] HospitalComment on above:Performed By: #### UMICAO, UAX #### [facility] [address] [place] [address] [place] [address] Microbiology Lab Technician: DANYEL MahoneyurbidityCLEARBarnes-Jewish West County HospitalalCACMC Healthcare System Glen[facility] Comment on above:Performed By: #### UMICAO, UAX #### [facility] [address] [place] [address] [place] [address] Microbiology Lab Technician: Kristen Howe MDUrobilinogen,UrNormalNormalNORMCleveland Clinic Medina HospitalComment on above:Performed By: #### UMICAO, UAX #### [facility] [address] [place] [address] [place] [address] Microbiology Lab Technician: NAHOMY MahoneyommentNOT REPORTEDMercy Health St. [facility] Comment on above:Performed By: #### UMICAO, UAX #### [facility] [address] [place] [address] [place] [address] Microbiology Lab Technician: Kristen Howe MDUrinalysis Reflex to CultureOrdered By: Estuardo Carter on [id number] UrineNegativeNEGATIVETogus Va Medical Center Health Work Phone: color, UAYELLOWYELLOWTogus Va Medical Center Health Work Phone: Glucose, UrNegativeNEGATIVETogus Va Medical Center Health Work Phone: Interpretation and review of laboratory results AbnormalMerContractor [facility] Work Phone: Ketones Ql (U)NegativeNEGATIVETogus Va Medical Center [employer] Work Phone: leukocyte esterase Test strip Ql (U)NegativeNEGATIVE [facility] [employer] Work Phone: Nitrite, UrineNegativeNEGATIVETogus Va Medical Center [facility] Work Phone: pH, UA6.0[facility] Work Phone: protein, UATRACEAbnormalNEGATIVETogus Va Medical Center [facility] Work Phone: specific [place], UA1.025[facility] Work Phone: Turbidity UACLEARCLEARTogus Va Medical Center [employer] Work Phone: Urinalysis CommentsNOT REPORTEDMer [employer] Work Phone: Urine Hgb3+AbnormalNEGATIVETogus Va Medical Center [employer] Work Phone: Urobilinogen, UrineNormalNormalTogus Va Medical Center [employer] Work Phone: Urinalysis,Microon 10-10-2020-----NormalCleveland Clinic Medina HospitalComment on above:Performed By: #### SHERINE UAX #### [facility] [address] [place] [address] Microbiology Lab Technician: Kristen Howe MDEpithelial cells LM Ql (Urine sed)0 TO 8Rhhctp0-59 [facility] Medina HospitalComment on above:Performed By: #### SHERINE, UAX #### [facility] [address] [place] [address] Microbiology Lab Technician: Ashok Mahoney RBC's20 TO 57Uqeoua7-7VwcbuBellevue Hospital Comment on above:Performed By: #### SHERINE, UAX #### [facility] [address] [place] [address] Microbiology Lab Technician: Ashok Mahoney WBC's0 TO 8Cvpwdc1-2SdiwqCleveland Clinic Medina Hospital Comment on above:Performed By: #### UMICAO, UAX #### [facility] [address] [place] [address] [place] [address] Microbiology Lab Technician: Jacinto Mahoney sediment LM Ql (Urine sed)NOT REPORTED NormalNONEMeWalthall County General Hospital HospitalComment on above:Performed By: #### UMICAO, UAX #### [facility] [address] [place] [address] [place] [address] Microbiology Lab Technician: Susan MahoneycteriaNOT REPORTEDNormalNONEMeSharon HospitalComment on above:Performed By: #### UMICAO, UAX #### [facility] [address] [place] [address] Dr. [place], [facility] Microbiology Lab Technician: NAHOMY MahoneyastsNOT REPORTEDMercy Health St. [facility] Comment on above:Performed By: #### CHARLIEICAO, UAX #### [facility] [address] [place] [address] [place] [address] Microbiology Lab Technician: NAHOMY Mahoneyrystligia LM Nom (Urine sed)NOT REPORTEDNormalNONE [facility] HospitalComment on above:Performed By: #### UMICAO, UAX #### [facility] [address] [place] [address] [place] [address] Microbiology Lab Technician: Kristen Howe MDEpithelial, RenalNOT UVHHOKMBKqryzo4Uejvh [facility]iffin HospitalComment on above:Performed By: #### UMICAO, UAX #### [facility] [address] [place] [address] Microbiology Lab Technician: BECK Mahoneyucus StrandsNOT REPORTEDNormalNONEMeWalthall County General Hospital HospitalComment on above:Performed By: #### UMICAO, UAX #### [facility] [address] [place] [address] Dr. [place], [place] [address] Microbiology Lab Technician: Lizeth Mahoney ObservationsNOT REPORTEDNormalNREQMercy St. Vincent'S Medical CenterComment on above:Performed By: #### SHERINE, UAX #### [facility] [address] [place] [address] Microbiology Lab Technician: Asa MahoneyonasTA REPORTEDNormalNONEMeSharon HospitalComment on above:Performed By: #### SHERINE, UAX #### [facility] [address] [place] [address] Microbiology Lab Technician: Anthony Mahoney REPORTEDNormalNONEMeSharon Hospital Comment on above:Performed By: #### SHERINE, UAX #### [facility] [address] [place] [address] Microbiology Lab Technician: Miko Mahoney 10-18-5569PUAWPrbnwi TextNoalCCincinnati Children's Hospital Medical CenterCNOVon 11-28-7174XHOSAvtkuu Visit (SYNCMN) FADIA LAN ([id number]) 1 F Date Time Provider Department 06/29/19 2:45 PM CELESTE WEISS SYNCMN During your visit today, we recorded the following information about you: Weight Height 53.3 kg 1.676 m Celeste Weiss Jr, DO, DO 07/06/2019 8:58 AM Signed [facility] [place] [facility] Department of Cardiovascular Medicine SECTION OF CARDIAC PACING and ELECTROPHYSIOLOGY OUTPATIENT VISIT DATE June 29, 2019 OUTPATIENT VISIT TYPE NEW PRIMARY CARE PHYSICIAN: Todd Dinero MD [address] [place] [address] REFERRING PHYSICIAN: Todd Dinero MD [address] [facility] [address] . NURSING INTAKE HISTORY: Fadia Lan is [...] habits-No, Blood in stool, Dark black stools-No. Neurological/Psychiatric: Weakness, paralysis-yes, Numbness-yes, Tingling-yes, Tremor-yes, Nervousness or [...] extensive local evaluation [facility] electrophysiology autonomic laboratory by Dr. pierson, tilt table testing, multiple drug trials, but continues to have events. My findings, recommendations, and plan of care will be added to the electronic medical record and forwarded to the [facility] physicians by [employer] and to the patient and the local [...] the medical intensive care unit of the [facility]. She underwent extensive evaluation including [...] reduction. 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 Love DISTRICT SALES LEADER states that there was a borderline increase [...] Brugada's syndrome, previous infarction, or early repolarization. Assessment/Plan:19-year-old with recurrent episodes of altered awareness unresponsiveness [...] suggestions. This note was partially generated using [employer] voice recognition system, and there may be some incorrect words, spellings, and punctuation that were not noted in checking the note before saving. Homer Weiss DO CC: Shanae Weeks [phone] (Work) [address] [place] [phone] Nurse Practitioner León [facility] [address] [place] [phone] henri Gamboa Neurology Ramesh garcia Referring Provider: TODD DINERO [[id number]] Allergies As of Date: 06/29/2019 (No Known Allergies) Date Reviewed: 06/29/2019 Reviewed by: Celeste Weiss DO - Fully Assessed Primary Visit Diagnosis:Syncope and collapse [R55] Other Visit Diagnoses:Near syncope [R55] Chest pain, unspecified type [R07.9] Orthostatic lightheadedness [R42] Order(s):OUTSIDE VENDOR CARDIAC OUTPATIENT TELEMETRY [] Order #: [id number]: 1 EPIL EEG LONG [[id number]] Order #: [id number]: 1 FUTURE Prescriptions as of 06/29/2019 Sig: [...] Encounter Status:Closed by CELESTE WEISS DO on 07/06/19NoGreen Cross HospitalOVOffice Visit (NE50MN) FADIA LAN ([id number]) 1 F Date Time Provider Department 06/29/19 11:00 AM OUSMANE GAMBOA NE50MN During your visit today, we recorded the following information about you: Pulse Blood pressure Weight 76/minute 96/60 54.9 kg Ousmane Gamboa MD PhD 07/11/2019 2:46 PM Signed .[facility] [place] [facility] Patient Name: Fadia Lan Date [...] out but she was caught by a naval police coxswain, she has LOC of unknown duration. 30 mins later, mother came to school, the patient was confused, slurred speech, she looked pale. She was admitted to a local hospital, some elevation of troponin. One week later, she had a similar episodes at school, she had SOB, hands trembling, she thought she was hungary, she went to [employer], she started to drove home, somehow, she [...] 3 day-EEG on 05/18/2019 [facility]. She had a mild spells [...] She was diagnosed of having POTs in [place] in Mar. Psychosocial: No depression, no anxiety. Insomnia. 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 Driving: not for now. PRIOR ANTICONVULSANT HISTORY: LEV, Following AEDs were associated with side effects: LEV (bizare behavior) PREVIOUS OSH EVALUATIONS: BEM 05/12/2019-05/16/2019: normal MRI w/wo 03/15/2019 Normal ? 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 Prior [...] high school and quit her job at [employer] due to episodes. ? Impression/Recommendations This is Ms. Fadia Lan a 18 [...] with prolonged EEG monitoring. Brain Tumor NA REFINING SUPERVISOR Infections NA Developmental Delay NA Family history [...] had [facility] with normal EEG. 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 Fadia Lan [address] [address] Referring Provider: SELF [200] Allergies As of [...] Status:Closed by COMFORT LYNCH, OUSMANE PHD on 07/11/19[facility] COMPLETEon [id number] COMPLETENAME : FADIA LAN PID : [id number] : 2000 Gender : Female Race : ORD : [id number] Procedure Date : Jun 29 2019 13:19:31 Edit Date : Jul 02 2019 13:58:19 Diagnosis:NORMAL SINUS RHYTHM NORMAL ECG Confirmed by OLIVIER RUBIO M.D. ([id number]) on 07/02/2019 1:55:40 PM Ventricular Rate : 75 BPM Atrial Rate : 75 BPM P-R Interval : 140 ms QRS Duration : 94 ms Q-T Interval : 392 ms QTC Calculation(Bazett) : 437 ms P [place] : 65 degrees R [place] : 62 degrees T [place] : 35 degrees Test Reason : Location : 314 : J14 Overread By : OLIVIER RUBIO M.D. Edited By : OLIVIER RUBIO M.D. Referred By : CELESTE WEISS Acquired by : Aidan MANZANARESCleveland Clinic Fairview HospitalOBSOLETEon 06-29-2019 OBSOLETEProcedure (NEAU) RIKYFADIA ([id number]) 1 F Date Time Provider Department 06/29/19 [...] Status:Closed by MARIA R GARCIA DO on 06/29/19[facility]PROCEDUREon [id number] ID: [id number] Author: Celeste Weiss DO Service: ? Author [...] showing sinus tachycardia. Celeste Weiss Jr, DO [facility] Name: FADIA LAN : 2000 Ordering provider: CELESTE WEISS Indication: R55 Syncope and collapse Type of monitor: Continuous Telemetry Enrollment dates: 07/11/2019 - 07/31/2019[facility] PROGRESSon [id number] ID: [id number] Author: Celeste Weiss DO Service: ? Author Type: Physician Type: Progress Notes Filed: 07/06/2019 8:58 AM Note Text: [facility] [place] [facility] Department of Cardiovascular Medicine SECTION OF CARDIAC PACING and ELECTROPHYSIOLOGY OUTPATIENT VISIT DATE June 29, 2019 OUTPATIENT VISIT TYPE NEW PRIMARY CARE PHYSICIAN: Todd Dinero MD [address] [place] [address] REFERRING PHYSICIAN: Todd Dinero MD [address] [facility] [address] . NURSING INTAKE HISTORY: Fadia Lan is [...] habits-No, Blood in stool, Dark black stools-No. Neurological/Psychiatric: Weakness, paralysis-yes, Numbness-yes, Tingling-yes, Tremor-yes, Nervousness or [...] local evaluation [facility] electrophysiology autonomic laboratory by Dr. pierson, tilt table testing, multiple drug trials, but continues to have events. My findings, recommendations, and plan of care will be added to the electronic medical record and forwarded to the [facility] physicians by [employer] and to the patient and the local [...] the medical intensive care unit of the [facility]. She underwent extensive evaluation including [...] reduction. 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 Love DISTRICT SALES LEADER states that there was a borderline increase [...] Brugada's syndrome, previous infarction, or early repolarization. Assessment/Plan:19-year-old with recurrent episodes of altered awareness unresponsiveness [...] suggestions. This note was partially generated using [employer] voice recognition system, and there may be some incorrect words, spellings, and punctuation that were not noted in checking the note before saving. Homer Weiss DO CC: Shanae Weeks [phone] (Work) [address] [place] [address] Nurse Practitioner León Stall[facility] [address] [place] [phone] henri valdivia Ousmane Gamboa Neurology [place] Kennafanny mendez maria r [facility] ID: [id number] Author: Ousmane Gamboa Service: ? Author Type: Physician Type: Progress Notes Filed: 07/11/2019 2:46 PM Note Text: .[facility] [place] [facility] Patient Name: Fadia Lan Date [...] out but she was caught by a naval police coxswain, she has LOC of unknown duration. 30 mins later, mother came to school, the patient was confused, slurred speech, she looked pale. She was admitted to a local hospital, some elevation of troponin. One week later, she had a similar episodes at school, she had SOB, hands trembling, she thought she was hungary, she went to [facility], she started to drove home, somehow, she [...] 3 day-EEG on 05/18/2019 [facility]. She had a mild spells [...] She was diagnosed of having POTs in [place] in Mar. Psychosocial: No depression, no anxiety. Insomnia. 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 Driving: not for now. PRIOR ANTICONVULSANT HISTORY: LEV, Following AEDs were associated with side effects: LEV (bizare behavior) PREVIOUS OSH EVALUATIONS: BEM 05/12/2019-05/16/2019: normal MRI w/wo 03/15/2019 Normal ? 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 Prior [...] high school and quit her job at [employer] due to episodes. ? Impression/Recommendations This is Ms. Fadia Lan a 18 [...] with prolonged EEG monitoring. Brain Tumor NA REFINING SUPERVISOR Infections NA Developmental Delay NA Family history [...] had [facility] with normal EEG. 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 Fadia Lan [address] [facility] [address]FxgitwCrqfzocypCleveland Clinic Fairview HospitalCNOVon [id number] Visit (SYNCMN) FADIA LAN ([id number]) 1 F Date Time Provider Department 06/15/19 [...] Comfort Measures: Added pillow under knees and Crawford Pacemaker: No Other Blood work:None Hemodynamic Tests: [...] Signature: HOMER Garcia, HE Ejection Fraction - ZIMBABWEAN-Gated: BP: 98/54, HR: 66, MGAQ-HR: 69 Mild SA Note: Test completed uneventfully. KB. IV discontinued at 11:40 by KB. [email or web address] Security card received: yes. Staff involved in procedure: HOMER Garcia, HE; Shameka Gray, MICHAEL, Parris MarioALISSA Procedure Finish Time: 11:40 Referring Provider: FLAVIO TRAN (FIELD CROP HARVEST CONTRACTOR) [[id number]] Allergies As of Date: 06/15/2019 (No Known Allergies) Date Reviewed: 06/04/2019 Reviewed by: Flavio ([facility]) Melissa - Fully Assessed Primary Visit Diagnosis:Syncope, unspecified syncope type [R55] Other Visit Diagnoses:Syncope and collapse [R55] Near syncope [R55] Chest pain, unspecified type [R07.9] Orthostatic dizziness [R42] Orthostatic lightheadedness [R42] Encounter for examination of blood pressure without abnormal findings [Z01.30] Order(s):HEMODYNAMIC ECHOCARDIOGRAM [05153531] Order #: [id number]. #:[id number]: 1 SALINE LOCK DISCONTINUE [2953381] Order #: [id number]: 1 Prescriptions as of 06/15/2019 Sig: POTASSIUM [...] More... Encounter Status:Closed by BENIGNO TAYLOR on 06/28/19[facility] [id number] ID: [id number] Author: Debbie Chinchilla (Tech) Service: ? Author Type: Primary Grade Teacher Type: Progress Notes Filed: 06/28/2019 7:35 AM [...] Comfort Measures: Added pillow under knees and Crawford Pacemaker: No Other Blood work:None Hemodynamic Tests: [...] BP:104/65; HR: 81Mild SA Signature: HOMER Garcia, GALLERY OR MUSEUM GUIDE Ejection Fraction - ZIMBABWEAN-Gated: BP: 98/54, HR: 66, MGAQ-HR: 69 Mild SA Note: Test completed uneventfully. KB. IV discontinued at 11:40 by SAIDA. [place] Security card received: yes. Staff involved in procedure: HOMER Garcia, GALLERY OR MUSEUM GUIDE; Shameka Gray, RN, Parris MarioALISSA Procedure Finish Time: 11:40[facility] 06-04-2019 CNOVOffice Visit (NEADMN) FADIA LAN ([id number]) 1 F Date Time Provider Department 06/04/19 1:00 PM FLAVIO TRAN ([facility]) AQUILINO During your visit today, we recorded [...] syncopal episode, but was caught by a naval police coxswain. Her parents came to the school and [...] of tachycardia. She was thus referred to [facility] for workup of POTS. She saw Dr. Mendez's DISTRICT SALES LEADER Josi. She had a tilt table test [...] to go to her family doctor by [facility]. Her mother states that in April [...] flat. She had a recent admission to [facility] with EEG monitoring done for 5 [...] disturbance, mood disorder and recent psychosocial stressors. HEMATOLOGIC/LYMPHATIC/IMMUNOLOGIC:Negative for prolonged bleeding, bruising easily or swollen [...] 5/5biceps, 5/5 wrist extension, and 5/5 hand strategic planning director. Finger extensor 5/5. Finger flexor 5/5. Pronation [...] of ankles. ? Coordination: Finger-to- nose-finger and nrol-jk-xbop intact bilaterally. No ataxia of arms. No [...] She had tilt table testing done at [facility] that I do not have record [...] with more than 50% of the total sirq-ko-chlp time of the visit in counseling / [...] - TILT TABLE EVALUATION Flavio Tran MSN, TRAINING DEVELOPMENT DIRECTOR, CUFF TURNER-C 1. This office note has been dictated [...] Allergies) Date Reviewed: 06/04/2019 Reviewed by: Flavio Ramirez) Melissa - Fully Assessed Reason for Visit: New Patient [172] Primary Visit Diagnosis:Syncope and collapse [R55] Other Visit Diagnoses:Near syncope [R55] Chest pain, unspecified type [R07.9] Orthostatic dizziness [R42] Orthostatic lightheadedness [R42] Disturbance of skin sensation [R20.9] Order(s):ECG COMPLETE [ECG01] Order #: [id number] FUTURE HEMODYNAMIC ECHOCARDIOGRAM [62104873] Order #: [id number]: 1 FUTURE perflutren lipid microspheres (DEFINITY) 1.1 [...] saline.Disp: 1.3 mLRfl: 0 TILT TABLE EVALUATION [39387YDH] Order #: [id number]: 1 NEURO CARDIO AUTONOMIC REFLEX W/WO TILT [8839825] Order #: [id number] SKIN BIOPSY FOR NEUROPATHY/CNL [2092738] Order #: [id number] CONSULT TO NEUROLOGY [9019] Order #: [id number]: 1 FUTURE HEMODYNAMIC TILT W/IV START [2080232] Order #: [id number]: 1 VITAMIN B12 BLOOD [SQB12] Order #: [id number] FUTURE VITAMIN B1 (THIAMINE), WHOLE BLOOD [SQB1WB] Order #: [id number] FUTURE VITAMIN B6/PYRIDOXIN [SQVITB6] Order #: [id number] FUTURE METHYLMALONIC ACID [SQMMA] Order #: [id number] FUTURE COPPER BLOOD [SQCOPPER] Order #: [id number] FUTURE IMMUNOFIXATION SCREEN, SERUM [SQIFESC] Order #: [id number] FUTURE Prescriptions as of 06/04/2019 Sig: POTASSIUM [...] saline. Encounter Status:Closed by FLAVIO TRAN on 06/04/19NormalCCincinnati Children's Hospital Medical CenterCopperon 81-31-0749Audylm21 ug/eDZml43-263BijwjjvsmSumma Health Comment on above:Result Comment: This test was developed and its performance characteristics determined by [facility] [place] ( [facility]). It has not been cleared or approved by the FDA. [facility] is regulated under CLIA as qualified to perform high complexity testing. This test is used for clinical purposes. It should not be regarded as investigational or for research.Performed By: #### CBC, CMP, MG1, PHOS #### [facility] [address] [id number] IFE Screen, Serumon 82-91-2413Qexgyix [Mass/Vol]No M protein is identified.NormalNo M protein is identified.[facility] on above:Performed By: #### CBC, CMP, MG1, PHOS #### [address] [address] Rgpro ReviewReviewed by Lyla Hoyos MD. ([id number])Normal [facility] [place] on above:Performed By: #### CBC, CMP, MG1, PHOS #### [address] [address] Gzkyrvckcfynq Acidon 91-64-0416Qbjykoyocufue Ficr444 nmol/LNormal 79-376[facility] [place] on above:Result Comment: This test was developed and its performance characteristics determined by [facility] [place] ( [facility]). It has not been cleared or approved by the FDA. [facility] is regulated under CLIA as qualified to perform high complexity testing. This test is used for clinical purposes. It should not be regarded as investigational or for research.Performed By: #### CBC, CMP, MG1, PHOS #### [address] [id number] [phone] 98-60-6285KDBNHXHXXRL ID: [id number] Author: Flavio (Tenzin Tran Service: ? Author Type: Nurse Practitioner [...] syncopal episode, but was caught by a naval police coxswain. Her parents came to the school and [...] of tachycardia. She was thus referred to [facility] for workup of POTS. She saw Dr. Mendez's DISTRICT SALES LEADER Josi. She had a tilt table test [...] to go to her family doctor by [facility]. Her mother states that in April [...] flat. She had a recent admission to [facility] with EEG monitoring done for 5 [...] disturbance, mood disorder and recent psychosocial stressors. HEMATOLOGIC/LYMPHATIC/IMMUNOLOGIC:Negative for prolonged bleeding, bruising easily or swollen [...] 5/5biceps, 5/5 wrist extension, and 5/5 hand strategic planning director. Finger extensor 5/5. Finger flexor 5/5. Pronation [...] of ankles. ? Coordination: Finger-to- nose-finger and neej-gp-ygbx intact bilaterally. No ataxia of arms. No limb dysmetria of arms and legs. or trunk. LAISIA of pronation and supination, finger and hand [...] She had tilt table testing done at [facility] that I do not have record [...] with more than 50% of the total rzlg-gl-twwm time of the visit in counseling / [...] - TILT TABLE EVALUATION Flavio Tran MSN, TRAINING DEVELOPMENT DIRECTOR, CUFF TURNER-C 1. This office note has been dictated [...] be at the discretion of your PCP/referring physicianNormalCCincinnati Children's Hospital Medical CenterVitamin B1, Whole Blon 89-92-2011Icyeukc B1 (TDP), WB189.4 nmol/QZzgohb35.0-213.0[facility] on above:Result Comment: This assay measures the concentration of thiamine diphosphate (TDP), the primary active form of vitamin B1. Approximately 90 percent of vitamin B1 present in whole blood is TDP. Thiamine and thiamine monophosphate, which comprise the remaining 10 percent, are not measured. This test was developed and its performance characteristics determined by [facility]'s [facility] [place] ([facility]). It has not been cleared or approved by the FDA. [facility] is regulated under CLIA as qualified to perform high complexity testing. This test is used for clinical purposes. It should not be regarded as investigational or for research.Performed By: #### CBC, CMP, MG1, PHOS #### [facility] [address], [place] [address] Fmkzqze B12on 21-95-9212Ypxewyiya (Vitamin B12) [Mass/Vol]989 pg/mL Tyzkri458-7204WumqbotnbWexner Medical Center on above:Performed By: #### CBC, CMP, MG1, PHOS #### [facility] [address], [place] [id number] [phone] B6 Plasmaon 81-25-9630Gkbscet B6 Sbgwjh86.7 nmol/LNormal 20.0-125.0[facility] on above:Result Comment: (NOTE) INTERPRETIVE INFORMATION: Vitamin B6 (Pyridoxal 5-Phosphate) Pyridoxal 5'-phosphate measured in a specimen collected following an 8-hour or overnight fast accurately indicates vitamin B6 nutritional status. Non-fasting specimen concentration reflects recent vitamin intake. Test developed and characteristics determined by [employer]. See Compliance Statement B: [employer]/CS Performed by [employer], [address] [place] [address] [email or web address], Chris Domingo MD, Lab. DirectorPerformed By: #### CBC, CMP, MG1, PHOS #### [facility] [address] [place], [place] [address] GDXS OF CAREon 95-87-7539YTYQ OF [facility]ARGARDNER [facility] ID: [id number] Author: Drew Walton Service: Cardiovascular Medicine Author Type: Resident Type: Plan of Care Filed: 05/16/2019 7:39 AM Note Text: Attestation signed by John Valdivia at 05/16/2019 9:00 AM [facility] STAFF PHYSICIAN NOTE OF PERSONAL INVOLVEMENT [...] chordal structure . Cardiac enzymes negative at [facility]. TTE done yesterday with normal systolic function, no wall motion abnormalities, and no thickening or mobile lesion. Cardiology will sign off at this time. Please do not hesitate to re consult with any concerns. Drew Walton MD [phone] Medical Specialty Hospital - [facility] 76-66-1706TPUPSSVMDBG ID: [id number] Author: Shanae Morales Service: General Internal Medicine Author Type: Physician Type: Progress Notes Filed: 05/15/2019 5:43 PM Note Text: SERVICE DATE: 05/15/2019 SERVICE TIME: 5:31 PM HOSPITAL MEDICINE PROGRESS NOTE NIGHT AND WEEKEND COVERAGE: Days: [phone] [place] [phone] for patient issues. Nights: [phone] For patients on H80/81, G80/81, please page GIM team pager [phone] For patients on any other floor, please page GIM team pager [phone] Hospital Medicine/Primary Attending: Shanae Morales MD Subjective [...] F/u Cardiology recs Medication and Non-Pharmacologic VTE Prophylaxis/Anticoagulants Anticoagulant AND Antiplatelet Medications (From admission, onward) Start Dose Route Frequency Ordered Stop 05/12/19 0900 heparin 5,000 Units injection (Medical Risk Categories) 5,000 Units SUBCUTANEOUS EVERY 12 HOURS 05/12/19 0832 -- 05/12/19 0830 vte non-pharmacologic prophylaxis - none indicated (co,ct) VTE Prophylaxis: VTE prophylaxis appropriate Plan of care discussed with: Provider, Family/Significant Other: mother, Care Management and RN SIGNATURE: Shanae Morales MD PATIENT NAME: Fadia Lan DATE: May 15, 2019 TIME: 5:31 PM PAGER/CONTACT #: [phone]i Children's Hospital Medical CenterC-Reactive Proteinon 37-38-1181CXD [Mass/Vol]mg/LNormal<0.9CCincinnati Children's Hospital Medical Center Comment on above:Performed By: #### VALLBG #### [facility] [address], [place] [address] IPLV MANAGEMon 80-14-3768CBPT MANAGEMHNO ID: [id number] Author: Sendy PerrinRn) MICHAEL Olson Service: Care [...] 14, 2019 TIME: 5:43 PM PAGER/CONTACT #: [phone] Clinic Fairview HospitalCASE MANAGEMHNO ID: [id number] Author: Ruby Boudreaux) MICHAEL Haile Service: Case [...] 14, 2019 TIME: 2:43 PM PAGER/CONTACT #: .[phone] Clinic Fairview Hospital Cortisolon 32-84-6039Eaggasdy18.4 ug/dLNoCleveland Clinic Fairview HospitalComment on above:Result Comment: Cortisol Reference Range: AM = 5.3-22.5, PM = 3.4-16.8 Performed By: #### CBC, CMP, MG1, PHOS #### [facility] [address], [place] [address] MMOF OF CAREon 19-04-5849TAIV OF CAREHNO ID: [id number] Author: Dante Smith MD Service: Neurology General [...] if new findings on EEG, please page [phone] -Pt should follow up with epilepsy - will place follow up order -For further POTS management, pt may follow up in autonomic clinic if she chooses -Please page with further questions Dante Smith MD PGY-2 Neurology Pager [phone] Medical Center 23-51-1307MDQIEKUYIMB ID: [id number] Author: Shanae Morales Service: General Internal Medicine Author Type: Physician Type: Progress Notes Filed: 05/14/2019 6:19 PM Note Text: SERVICE DATE: 05/14/2019 SERVICE TIME: 6:17 PM HOSPITAL MEDICINE PROGRESS NOTE NIGHT AND WEEKEND COVERAGE: Days: 4230-0602 [place] [phone] for patient issues. Nights: [phone] For patients on H80/81, G80/81, please page GIM team pager [phone] For patients on any other floor, please page GIM team pager [phone] Hospital Medicine/Primary Attending: Shanae Morales MD Subjective [...] F/u Cardiology recs Medication and Non-Pharmacologic VTE Prophylaxis/Anticoagulants Anticoagulant AND Antiplatelet Medications (From admission, onward) [...] 14, 2019 TIME: 6:17 PM PAGER/CONTACT #: [phone] Clinic Fairview HospitalTroponin Ton 44-31-4382Ztpvnbyd Erica.cardiac [Mass/Vol]ug/LNormal0.000-0.029Summa HealthComment on above:Performed By: #### VALLBG #### [facility] [address] [place], [place] [address] QEIZPIK PROGon 25-65-8961FCIMLYY PROEDDINO ID: [id number] Author: Colleen Boudreaux) MICHAEL Devine Service: ? Author Type: Registered Nurse Type: Nursing Progress Note Filed: 05/13/2019 5:05 AM Note Text: Nursing Progress Note Patient Name: Fadia Lan Patient Location: [place] [address] Daily Note: Pt arrived to unit in stable condition. Pt was fully assessed including skin check with 2nd RN. Pt was oriented to room, instructed on how to use the call button, explained why she is currently a falls risk, and taught her how to use the call light for help. Pt stated that her belongings include her cell lurdes, parachute crown sewer, health history documents, and home medications. I instructed patient that doctors will need to see medication to reconcile med orders but that we will be providing all medication while she is in the hospital. Pt showed no signs and had no c/o pain, dizziness, chest pains or seizure activity at this time. This note was completed by: Jameson RaoCincinnati Children's Hospital Medical Center PROGRESSon 03-25-4940MXYWZLJEAAG ID: [id number] Author: Gerald Llanes Service: Hospital Medicine Author Type: Physician Type: Progress Notes Filed: 05/13/2019 1:54 PM Note Text: Plan of care note Spoke to pt and family at bedside Went over previous work up with them They have paper records from [facility] RECORDS - ECHO - 3 echos done [...] Staff, Dept. Of Hospital Medicine PAGER - [phone] 'NormalSumma HealthPROCLEVELAND CLINIC AVON HOSPITALO ID: [id number] Author: Scott Rodriguez Service: Hospital Medicine Author Type: Physician Type: Progress Notes Filed: 05/13/2019 2:50 AM Note Text: DEPARTMENT OF HOSPITAL MEDICINE PROGRESS NOTE SERVICE DATE: 05/13/2019 SERVICE TIME: 2:42 AM Primary Care Physician: Todd Dinero MD NIGHT AND WEEKEND COVERAGE: Please page me at [phone] with any question between 5 pm-8 am. [...] for dizziness, loss of consciousness and headaches. Psychiatric/Behavioral: Negative for depression and hallucinations. Objective PHYSICAL [...] As per cardiology Medication and Non-Pharmacologic VTE Prophylaxis/Anticoagulants Anticoagulant AND Antiplatelet Medications (From admission, onward) Start Dose Route Frequency Ordered Stop 05/12/19 0900 heparin 5,000 Units injection (Medical Risk Categories) 5,000 Units SUBCUTANEOUS EVERY 12 HOURS 05/12/19 0832 -- 05/12/19 0830 vte non-pharmacologic prophylaxis - none indicated (co,ct) VTE Prophylaxis: low risk Disposition: Home Plan of care discussed with: Patient and RN SIGNATURE: Scott Rodriguez MD PATIENT NAME: Fadia Lan DATE: May 13, 2019 TIME: 2:11 AM PAGER/CONTACT #: [phone] etx [id number] Medical [facility] 72-35-9053Bbigspsk nRBC<0.01 Normal<0.01[facility] on above:Performed By: #### CBC, CMP, MG1, PHOS #### [facility] [address] [place], [place] [address] [phone] distribution width (RBC) [Ratio]11.3 %Low11.5-15.0 [facility] on above:Performed By: #### CBC, CMP, MG1, PHOS #### [place] [address] [place] [address] Ncdgwsaykz (Bld) [Volume fraction]36.1 %Wlfkst59.0-46.0[facility] on above:Performed By: #### CBC, CMP, MG1, PHOS #### [place] [address] Shzxtskhvy (Bld) [Mass/Vol]12.6 g/aKYbsofa54.5-15.5CWexner Medical Center on above:Performed By: #### CBC, CMP, MG1, PHOS #### [place] [address] KEV (RBC) [Entitic mass]31.0 dXJwyafo87.0-34.0[facility] on above:Performed By: #### CBC, CMP, MG1, PHOS #### [place] [address] XNLR (RBC) [Mass/Vol]34.9 g/mBMndhlk67.5-36.0[facility] on above:Performed By: #### CBC, CMP, MG1, PHOS #### [place] [address] HKF (RBC) [Entitic vol]88.7 oGQclhgb95.0-100.0[facility] on above:Performed By: #### CBC, CMP, MG1, PHOS #### [place] [address] Vhzqdvtv mean volume (Bld) [Entitic vol]8.6 fLLow9.0-12.7CWexner Medical Center on above:Performed By: #### CBC, CMP, MG1, PHOS #### [address] [place] [address] Amncgcott (Bld) [#/Vol]328 10*3/iCDwmddw026-031RcbwyuemnSumma HealthComment on above:Performed By: #### CBC, CMP, MG1, PHOS #### [facility] [address] [place] [address] VPA (Bld) [#/Vol]4.07 10*6/uLNormal3.90-5.20Summa HealthComment on above:Performed By: #### CBC, CMP, MG1, PHOS #### [facility] [address] [place] [address] ASB (Bld) [#/Vol]5.72 10*3/uLNormal3.70-11.00[facility] on above:Performed By: #### CBC, CMP, MG1, PHOS #### [place] [address] [place] [address] CRMUOGNzv 88-75-8984JLEGLKGZBM ID: [id number] Author: Ramesh Scales Service: Neurology General Author [...] tend to occur in the evenings 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 Prior [...] high school and quit her job at [employer] due to episodes. Current Facility-Administered Medications Medication [...] ? Coordination: Finger-to- nose-finger intact bilaterally and Dhet-na-todn intact bilaterally. ? Gait: Not examined. LABS/DATA: [...] not upload- disc left in patient's chart). Impression/Recommendations This is Ms. Fadia Lan a 18 [...] [place] [phone]. - [place] [phone] with questions. The patient was evaluated by Neurology Moonlighter and will be formally seen by staff in the AM. SIGNATURE: Maria De Jesus Gunderson MD PGY4 Neurology Resident PATIENT NAME: Fadia Lan DATE: May 12, 2019 TIME: 12:49 PM PAGER/CONTACT #: [phone] Staff Note: I reviewed the history and physical obtained and documented by the resident and I personally participated in the rosado components. I agree with impression and plan. Ramesh Scales MDNormalCDunlap Memorial Hospital Metabolic Panelon 05-12-2019 Albumin [Mass/Vol]4.1 g/dLNormal3.9-4.9CWexner Medical Center on above:Performed By: #### CBC, CMP, MG1, PHOS #### [facility] [address] [place], [place] [address] AID [Catalytic activity/Vol]54 U/FTpidkq90-63DdjutqbpvSelect Medical Specialty Hospital [facility] [place] on above:Result Comment: Reference ranges were not locally established for this patient's age group. The normal values are based on the following source: Austen BERNARD, Dari WALKER, et al. CLSI based transference of the CALIPER database of pediatric reference intervals from Carbajal to Antionette, Ortho, Nathalia, and Siemens Clinical Chemistry Assays: Direct validation using reference samples from the CALIPER cohort. Clin Biochem.Performed By: #### CBC, CMP, MG1, PHOS #### [facility] [address] [place], [place] [address] LHL [Catalytic activity/Vol]10 U/LNormal7-38[facility] on above:Performed By: #### CBC, CMP, MG1, PHOS #### [place] [address] [place] [address] Zlewf gap [Moles/Vol]11 mmol/LNormal9-18[facility] Comment on above:Performed By: #### CBC, CMP, MG1, PHOS #### [place] [address] UWM [Catalytic activity/Vol]14 U/OGgocsj44-34NutgmwwqjSelect Medical Specialty Hospital [facility] [place] on above:Performed By: #### CBC, CMP, MG1, PHOS #### [place] [address] Zftmtmjze [Mass/Vol]0.5 mg/dLNormal0.2-1.3CCincinnati Children's Hospital Medical Center Comment on above:Performed By: #### CBC, CMP, MG1, PHOS #### [place] [address] Dbhucsj [Mass/Vol]8.7 mg/dLNormal8.5-10.2CCincinnati Children's Hospital [facility] Center Comment on above:Performed By: #### CBC, CMP, MG1, PHOS #### [place] [address] [place] [address] Fvcbmnse [Moles/Vol]105 mmol/BMexrkz48-903UybhexzkaSumma Health Comment on above:Performed By: #### CBC, CMP, MG1, PHOS #### [place] [address] [place] [address] PE6 [Moles/Vol]26 mmol/ZOihphh71-68DesilacctSelect Medical Specialty Hospital - [place] on above:Performed By: #### CBC, CMP, MG1, PHOS #### [place] [id number] Cvurgkjnwy [Mass/Vol]0.58 mg/dLNormal0.58-0.96[facility] on above:Performed By: #### CBC, CMP, MG1, PHOS #### [facility] [address], [place] [address] [phone]- Amer.>60NormalCWexner Medical Center on above:Performed By: #### CBC, CMP, MG1, PHOS #### [facility] [address] [place] [address] GFR/1.73 sq M predicted among non-blacks MDRD (S/P/Bld) [Vol rate/Area]mL/min/{1.73_m2}NormalSelect Medical Specialty Hospital - [place] on above: Result Comment: eGFR (Estimated GFR) [...] the eGFR may not accurately reflect actual GFR.Performed By: #### CBC, CMP, MG1, PHOS #### [facility] [address], [place] [address] [phone] [Mass/Vol]81 mg/dDLmzset67-30IwyxkejqxSumma Health Comment on above:Result Comment: The [place] Diabetes Association (ADA) provides guidance for cutoff [...] Standards of Medical Care in Diabetes 2016, [place] Diabetes Association. Diabetes Care. 2016.39(Suppl 1).Performed By: #### CBC, CMP, MG1, PHOS #### [facility] [address] [place] [address] Mjxcngvko [Moles/Vol]3.3 mmol/LLow3.7-5.1CCincinnati Children's Hospital Medical Center Comment on above:Performed By: #### CBC, CMP, MG1, PHOS #### [place] [address] [place] [address] Mefubpe [Mass/Vol]6.1 g/dLLow6.3-8.0[facility] Comment on above:Performed By: #### CBC, CMP, MG1, PHOS #### [place] [address] Jnseee [Moles/Vol]142 mmol/TYbmwir424-650NipnpdlqySumma Health Comment on above:Performed By: #### CBC, CMP, MG1, PHOS #### [place] [address] Raap nitrogen [Mass/Vol]5 mg/dLLow7-21[facility] Comment on above:Performed By: #### CBC, CMP, MG1, PHOS #### [place] [address] [place] [address] JCM COMPLETEon 92-51-9644USL COMPLETENAME : FADIA LAN PID : [id number] : 2000 Gender : Female Race : ORD : [id number] Procedure Date : May 12 2019 13:55:01 [...] ms QTC Calculation(Bazett) : 435 ms P Cant[place] : 62 degrees R Canton : 65 degrees T [place] : 54 degrees Test Reason : Arrhythmia Location : 151 : G51 09 Overread By : MD STACEY, PhD,IZABELA Edited By : MD STACEY, PhD,IZABELA Referred By : MERRITT HANLEY Acquired by : Himanshu DIAZCleveland Clinic Fairview HospitalEKG1on 05-12-2019 SGH1JIFU : FADIA LAN PID : [id number] : 2000 Gender : Female Race : [...] ms QTC Calculation(Bazett) : 432 ms P Canton : 64 degrees R Canton : 76 degrees T [place] : 45 degrees Test Reason : Location : 115 : G60NS Overread By : MD STACEY, PhD,IZABELA Edited By : MD STACEY, PhD,IZABELA Referred By : , Acquired by : [id number],NormalSumma HealthGASV + ALLon 90-40-3442Gbkv Excess1 mmol/LNormalSumma HealthComment on above:Performed By: #### VALLBG #### [facility] [address] [place], [place] [address] [phone] [Mass/Vol]1.23 mmol/LNormal1.08-1.30Summa HealthComment on above:Performed By: #### VALLBG #### [facility] [address] [place], [place] [address] [phone],Ven1.1 %Normal<2.0[facility] Comment on above:Performed By: #### VALLBG #### [facility] [address] [place], [place] [address] CO2 [Moles/Vol]28 mmol/PJhbkyg66-23QecuoputpSumma HealthComment on above:Performed By: #### VALLBG #### [facility] [address] [place] [address] Efohwui [Mass/Vol]84 mg/dJBgowoc97-668LgopdlnuzSumma Health Comment on above:Performed By: #### VALLBG #### [place] [address] [place] [address] OZN9 (Bld) [Moles/Vol]27 mmol/BZbmxzj94-17FizxhcmarSumma Health Comment on above:Performed By: #### VALLBG #### [place] [address] [place] [address] Vckwfeixbk (Bld) [Volume fraction]40 %Ugpbsn93.0-46.0[facility] on above:Performed By: #### VALLBG #### [place] [address] [place] [address] Ihegnltlxv (Bld) [Mass/Vol]12.9 g/cPKqhxhd50.5-15.5CWexner Medical Center on above:Performed By: #### VALLBG #### [place] [address] [place] [address] Ztnngxk [Moles/Vol]0.9 mmol/LNormal0.5-2.2CCincinnati Children's Hospital Medical Center Comment on above:Performed By: #### VALLBG #### [place] [address] [place] [address] Btzpcwxegbfvb2.6 %Normal0.4-1.5CWexner Medical Center on above:Performed By: #### VALLBG #### [place] [address] [place] [address] Vhwjhy (Bld) [Partial pressure]46 mm AkVzbt77-04FscrjksrzSumma HealthComment on above:Performed By: #### VALLBG #### [facility] [address], [place] [address] Rvxbzfjjurvxh, Kevin.76 %Lzklyc56-51AvkiexaohSelect Medical Specialty Hospital - [place] on above:Performed By: #### VALLBG #### [facility] [address], [place] [address] pQS606 mm WlGhjcls55-17WccsnzfejSumma HealthComment on above: Performed By: #### VALLBG #### [facility] [address] [place], [place] [address] jDY5, Temp Ncxvxkn93 mm HgNormalCWexner Medical Center on above:Performed By: #### VALLBG #### [place] [address] [place] [address] aC (Bld)7.36 [pH]Normal7.32-7.42Summa HealthCompontiac general hospital on above:Performed By: #### VALLBG #### [place] [address] [place], [place] [address] wO, Temp Corrected7.80Rzqnxy2.32-7.42[facility] Comment on above:Performed By: #### VALLBG #### [place] [address] [place], [place] [address] fG8, Temp Ogramlacy05 mm HgNormalCWexner Medical Center on above:Performed By: #### VALLBG #### [facility] [address] [place], [place] [address] Ovxbgadxi [Moles/Vol]3.3 mmol/LLow3.5-5.0[facility] Comment on above:Performed By: #### VALLBG #### [facility] [address], [place] [address] Qdmrpz [Moles/Vol]140 mmol/ZYctlew000-218MytgyxagnSumma Health Comment on above:Performed By: #### VALLBG #### [facility] [address] [place], [place] [address] GQHIIUR PHYSICALon 73-00-5384SOTGYXO PHYSICALHNO ID: [id number] Author: Tony Tapia MD Service: Critical Care Author Type: Resident Type: HANDP Filed: 05/12/2019 2:09 PM Note Text: Attestation signed by Skip Zee at 05/12/2019 6:09 PM [facility] STAFF PHYSICIAN NOTE OF PERSONAL INVOLVEMENT [...] of care, medical plan for the day, oracle hyperion consultant recommendations, medical disposition and current medical condition/prognosis as and if clinically indicated. All questions and concerns were answered and addressed at this juncture. They were notified on May 12, 2019. Plan of care discussed with: Provider, RN, Patient. SIGNATURE: Skip Zee MD [facility] May 12, 2019 6:00 PM May 12, 2019 12:44 PM Fadia Lan ADMISSION DATE: 05/12/2019 [id number] LENGTH OF STAY: 0 Fadia is a [...] to be S Aureus Impetigo by a cat tender. Keflex and mupirocin given and the infection [...] 0830 vte non-pharmacologic prophylaxis - none indicated (co,oh) 05/12/19 0830 activity - mobilize patient (co,ct) VTE Prophylaxis: VTE prophylaxis appropriate Bowels: no [...] DVT ppx: hep subq Dispo: floor Tony Willie PGY2 Note to be reviewed by Dr. PerezBarnesville HospitalMagnesiumon 50-66-3520Eqhtxukfj [Mass/Vol]1.9 mg/dLNormal1.7-2.3CCincinnati Children's Hospital [facility] Center Comment on above:Performed By: #### CBC, CMP, MG1, PHOS #### [facility] [address] [place], [place] [address] KWGIIZAGca 18-87-0392XPOIOZPFKBK ID: [id number] Author: John Valdivia Service: Cardiovascular Medicine Author Type: Physician Type: Progress Notes Filed: 05/13/2019 2:01 PM Note Text: [facility] CARDIOVASCULAR MEDICINE HISTORY AND PHYSICAL Fadia Riky [id number] PRIMARY SERVICE: [facility] DATE OF ADMISSION: 05/12/2019 CHIEF [...] mobile density -I uploaded the echos to [employer]. Would repeat TTE here. Ask them to [...] Staff addendum to follow Brooks Clinton MD Director Of Customer Service Pager: [phone] For communication after 5 pm on weekdays and after 12 pm on weekends, please page the following: - Clinical Cardiology patients on all floors: page [phone] - All other patients: after hours JORGE A (found in the On-Call directory by searching JORGE A) - For any urgent or emergent issues, [place] demolition [place] [phone] (Heart failure A, Imaging, DISTRICT SALES LEADER/[place]) or [phone] (Heart failure B, EP/EP TCI, Intervention, J33) Resident update: Patient seen by cardiology team and staff acid maker. Briefly, Ms. Loaiza is an 18 year [...] will continue to follow. Drew Walton MD [phone] [facility] STAFF PHYSICIAN NOTE OF PERSONAL INVOLVEMENT [...] evidence of cardiomyopathy PLAN: [facility] And if elevated consider further testing Echocardiogram telemetry monitoring John Valdivia MD DATE of SERVICE: May 13, 2019 TIME of SERVICE: 2:00 PMNormalSumma HealthPhosphoruson 05-12-2019 Phosphate [Mass/Vol]3.9 mg/dLNormal2.7-4.8CCincinnati Children's Hospital Medical CenterComment on above:Performed By: #### CBC, CMP, MG1, PHOS #### [facility] [address] [place], [place] [address] Lda Rate Westergrenon 12-82-2818Hjr Rate Westergren2 mm/hrNormal0-20 [facility] on above:Performed By: #### MARGARITA, WSR, TSH #### [facility] [address] [place], [place] [address] Jxlhk aureus PCRon 81-15-8428VVEL PCRNegativeNormProMedica Bay Park Hospital on above:Performed By: #### VALLBG #### [facility] [address] [place], [place] [address] Z aureus Spec SourceNasalNormalCWexner Medical Center on above:Performed By: #### VALLBG #### [facility] [address], [place] [address] Rrerc aureus PCRNegativeNormalCWexner Medical Center on above:Result Comment: Performance characteristics of this assay for testing specimens from patients <=21 years of age were determined by [facility]'s [facility] Pathology and [facility] Medicine [place] ([facility]). Performance on this age group has not been approved by the FDA. [facility] is regulated under CLIA as qualified to perform high complexity testing. This test is used for clinical purposes. It should not be regarded as investigational or for research.Performed By: #### VALLBG #### [place] [address] [place], [place] [address] SVIvd 06-88-0522EWD Qn1.970 uU/mLNormal0.510-4.300[facility] [place] on above:Result Comment: If the patient is , TSH reference range varies by gestational period: First Trimester (weeks 9-12): 0.180-2.990 mcIU/mL Second Trimester: 0.110-3.980 mcIU/mL Third Trimester: 0.480-4.710 mcIU/mL Favian Rosas et al. A Practical Approach for the Verifications and Determination of Site- and Trimester-Specific Reference Intervals for Thyroid Function tests in . Thyroid, 2019:29:3:412-420.Paul Mckenzie et al. 2017 Guidelines of the [place] Thy[employer] for the Diagnosis and Management of Thyroid Disease during and the . Thyroid, 2017:27:3:315-389. Reference ranges were not locally established for this patient's age group. The normal values are based on the following source: Awa Aceves V. Reference Ranges for Adults and Children: Pre-analytical Considerations. Nathalia DiagnosticsPerformed By: #### VALLBG #### [place] [phone] Screen,Uron 00-86-4739Btdswuxkjmjv, UrineNegativeNormal NegativeSumma HealthComment on above:Result Comment: Cutoff threshold at 1000 ng/mL.Performed By: #### UTOX2 UAWMIC #### [place] [phone], UrineNegativeNormalNegativeSumma Health Comment on above:Result Comment: Cutoff threshold at 200 ng/mL.Performed By: #### UTOX2, UAWMIC #### [place] [phone], UrNegativeNormalNegativeSumma Health Comment on above:Result Comment: Cutoff threshold at 200 ng/mL.Performed By: #### UTOX2, UAWMIC #### [place] [phone], UrineNegativeNormalNegativeSumma Health Comment on above:Result Comment: Cutoff threshold at 50 ng/mL.Performed By: #### UTOX2, UAWMIC #### [place] [phone], UrineNegativeNormalNegativeSumma Health Comment on above:Result Comment: Cutoff threshold at 300 ng/mL.Performed By: #### UTOX2, UAWMIC #### [place] [phone], Urine<11Normal<11ClevelECU Health Roanoke-Chowan HospitalComment on above:Performed By: #### UTOX2, UAWMIC #### [address], [place] [address] Yjpjoui, UrineNegativeNormalNegativeSumma Health Comment on above:Result Comment: Cutoff threshold at 300 ng/mL.Performed By: #### UTOX2 UAWMIC #### [place] [address] Jlvluxccw, UrineNegativeNormalNegativeSumma Health Comment on above:Result Comment: Cutoff threshold at 100 ng/mL. Comment: Immunoassay screen [...] on the same specimen through Client Services ([phone]) if contacted within 48 hours of initial testing. [1]Substance Abuse and Mental Health Services Administration (2012). Clinical Drug Testing in Primary Care Technical Assistance Publication Series 32. Department of Health and Human Services, [place], p.10.Performed By: #### UTOX2 UAWMIC #### [place] [address] Ubxehzwanskln, UrineNegativeNormalNegativeSumma Health Comment on above:Result Comment: Cutoff threshold at 25 ng/mL.Performed By: #### UTOX2 UAWMIC #### [place] [address] Mwfhrlab Ton 17-88-8677Dszoehfe T.cardiac [Mass/Vol]ug/LNormal 0.000-0.029Summa HealthComment on above:Performed By: #### MARGARITA, WSR, TSH #### [place] [address] Xtwdxqjrzs with [employer] 79-68-8931Tdjrdgwpl, UrineNegative NormalNegativeSumma HealthComment on above:Performed By: #### UTOX2, UAWMIC #### [facility] [address] [place] [address] Mlwpzkx (U)ClearNormalClearSumma HealthCompontiac general hospital on above:Performed By: #### UTOX2, UAWMIC #### [facility] [address] [place] [address] Tyijj (U)YellowNormalYellowSumma HealthComment on above:Performed By: #### UTOX2, UAWMIC #### [place] [address] [place] [address] UgahvcbwASE COMMENTNormalCWexner Medical Center on above: Result Comment: N/APerformed By: #### UTOX2 UAWMIC #### [place] [address] [place] [address] Wjoncleheb cells LM.HPF (Urine sed) [#/Area]SEE COMMENTNormal [facility] on above:Result Comment: Few Squamous Epithelial CellsPerformed By: #### UTOX2, UAWMIC #### [facility] [address] [place] [phone] Zhimtln Ql (U)NegativeNormalNegCleveland Clinic Foundation Comment on above:Performed By: #### UTOX2, UAWMIC #### [facility] [employer] [address] [place] [address] Cwkgatbrvx/Blood,Ur1+Critically abnormalNegativeSelect Medical Specialty [facility] [place] on above:Performed By: #### UTOX2, UAWMIC #### [facility] [employer] [address] [place] [phone] Silintv Ql (U)NegativeNormalNegCleveland Clinic Foundation Comment on above:Performed By: #### UTOX2, UAWMIC #### [facility] [address] [phone]bdzikFsanecpzd Clinic ClevelandComment on above:Performed By: #### UTOX2, UAWMIC #### [place] [address] [place] [phone] Ql (U)NegativeNormalNegativeSumma Health Comment on above:Performed By: #### UTOX2, UAWMIC #### [place] [address] [place] [phone] (Bld)6.4Yewcdw1.5-8.0[facility] on above: Performed By: #### UTOX2, UAWMIC #### [place] [address] [place] [phone] (U) [Mass/Vol]NegativeNormalNegativeSelect Medical Specialty [facility] [place] on above:Performed By: #### UTOX2, UAWMIC #### [place] [address] [place] [phone] (U) [#/Vol]0-7Rvxbxh7-3RyjfmyiapWexner Medical Center on above:Performed By: #### UTOX2, UAWMIC #### [facility] [address] [place] [phone] [place], Ur1.082Ywtbnd9.005-1.030[facility] Comment on above:Performed By: #### UTOX2, UAWMIC #### [place] [address] [place] [phone] Álvaro CommentSEE COMMENTNormalCWexner Medical Center on above:Result Comment: N/APerformed By: #### UTOX2, UAWMIC #### [place] [address] [place] [phone] Qn (U)NormalNormalNormalCCincinnati Children's Hospital Medical Center Comment on above:Performed By: #### UTOX2 UAWMIC #### [facility] [employer] [address] [place] [address] UFF (Bld) [#/Vol]5-8Xrzogv9-9Mxlhzehpn Clinic ClevelandComment on above:Performed By: #### UTOX2, UAWMIC #### [facility] [employer] [address] [place] [address] BFXPhp 04-49-1710ZMZQLahbir TextNormalCCincinnati Children's Hospital Medical Center Vital Signs Date TimeVital SignValuePerforming DniunuwuxNmykrnbr68-83-2572 14:06-0400Body jsduas474.1 cmCoreMelodigram DO Work Phone: [phone] [place], [place] [address]Ezkbqynblo32-30-8711 14:06-0400Body mass index (BMI) [Ratio]21.97 kg/g7Uhdpf [employer] DO Work Phone: [phone] [place], [place] [address]Ohtuzszjln35-13-0972 14:06-0400Body xuyrmq16.88 kgTrihealth Mccullough-Hyde Memorial Hospitaly [employer] Work Phone: [phone] [place] [facility] HospitalVrumlsecqy11-05-8352 14:06-0400Diastolic blood jnosajjg17 mm[Hg][employer] Work Phone: [phone] [place] HospitalAojqgmtbcc17-27-2923 14:06-0400Systolic blood mm[Hg][employer] Work Phone: [phone]-[facility] [place] [facility] HospitalKxztycboma73-69-8177 13:39-0400Body .1 [facility]09-15-2025 13:39-0400Body mass index (BMI) [Ratio]20.8 kg/m2[facility]09-15-2025 13:39-0400Body surface area Derived from formula1.61 m2[facility]09-15-2025 13:39-0400Body orlukmrbxtf99.6 [degF]Evgeny Faustin [facility] 02-25-2025 13:39-0400Body xdvaxn25.7 kgEvgeny Faustin [facility]09-15-2025 13:39-0400Diastolic blood fdgwasgu19 mm[Hg]Evgenylisa Faustin [facility]09-15-2025 13:39-0400Heart rate76 /minEric Ramin [facility]09-15-2025 13:39-0400Systolic blood bgxpmfxy901 mm[Hg]Evgeny Ramin [facility]04-15-2025 09:35-0400Body mass index (BMI) [Ratio]20.77 kg/n9Neilo Asif DO Work Phone: [facility] HospitalGywyamuoib73-08-1674 09:35-0400Body .61 kgCorey Asif DO Work Phone: [facility] HospitalDrydcoryvr77-21-6214 09:35-0400Diastolic blood mxymjyic04 mm[Hg]Dmitri Asif DO Work Phone: [facility] HospitalEusbnkmtmv80-68-0614 09:35-0400Systolic blood rsbsmysm138 mm[Hg]Dmitri Asif DO Work Phone: [facility] HospitalNlqbschykq35-52-6217 16:30-0500Body .1 cmKareem Dolce DPM FACFAS Work Phone: [facility] HospitalXvkxmoridk08-32-5599 16:30-0500Body mass index (BMI) [Ratio]19.64 kg/g0Zobaqv Dolce DPM FACFAS Work Phone: [facility] HospitalKrgforibut11-03-5126 16:30-0500Body zgvbpi38.52 kgKareem Dolce DPM FACFAS Work Phone: [facility] HospitalAwdjoteesd97-62-4604 16:30-0500Diastolic blood ogsuzfsx16 mm[Hg]Zaid Dolce DPM FACFAS Work Phone: [facility] HospitalPacynaosgl87-94-4100 16:30-0500Heart rate70 /min Zaid Dolce DPM [employer]ACFAS Work Phone: [phone] [place], [place] 2323712-05-2024 16:30-0500Systolic blood pfjdmjao886 mm[Hg]Zaid Dolce DPM [employer]ACFAS Work Phone: [phone] [place], [place] 2323711-12-2024 16:23-0500Body apepki311.1 cmKareem Dolce DPM [employer]ACFAS Work Phone: [phone] [place], [place] 2323711-12-2024 16:23-0500Body mass index (BMI) [Ratio]19.64 kg/c7Qmkmof Dolce DPM [employer]AC[employer] Work Phone: [phone])[address] [place] [address]-12-2024 16:23-0500Body vurdjq11.52 kgKareem Dolce DPM [employer]AC[employer] Work Phone: [phone] [place], [place] 232[address]11-12-2024 16:23-0500Diastolic blood vwjhocrf06 mm[Hg]Zaid Dolce DPM [employer]AC[employer]AS Work Phone: [phone])[address] [place] [address]-12-2024 16:23-0500Heart rate70 /min Zaid Dolce DPM [employer]ACFAS Work Phone: [phone])[address] [place] [address]-12-2024 16:23-0500Systolic blood goubhvrn627 mm[Hg]Zaid Dolce DPM [employer]AC[employer]AS Work Phone: [phone] [place], [place] 2323711-11-2024 08:50-0500Body mass index (BMI) [Ratio]19.64 kg/f5Azhgh Asif DO Work Phone: [place] [address]Xkoyibkbnb17-33-4368 08:50-0500Body nttsde80.52 kgCorey Asif DO Work Phone: [place] [address]Tfxbcvozku91-96-4690 08:50-0500Diastolic blood fmwixudy25 mm[Hg]Dmitri Asif DO Work Phone: [place] [address]Xtnjopcuey77-92-1500 08:50-0500Systolic blood gwtieopf567 mm[Hg]Dmitri Asif DO Work Phone: [facility] HospitalSyciymszxl39-17-1431 16:13-0500Body mass index (BMI) [Ratio]19.28 kg/b1Rpyhb Asif DO Work Phone: [facility] [place] [facility] HospitalBzulilyydj75-02-1682 16:13-0500Body linqgs87.55 kgCorey Asif DO Work Phone: [facility] HospitalJrhvbqbyrp80-59-5520 16:13-0500Diastolic blood avepdygh99 mm[Hg]Dmitri Asif DO Work Phone: [facility] HospitalRmgjqddzyr83-30-5006 16:13-0500Systolic blood rgmstney209 mm[Hg]Dmitri Asif DO Work Phone: [facility] HospitalSkkuvvggjm11-01-0746 16:08-0400Body .1 cmKareem Dolce DPM FACFAS Work Phone: [facility] HospitalGvdybiqmmb11-11-5455 16:08-0400Body mass index (BMI) [Ratio]20.97 kg/l8Gvnthf Dolce DPM FACFAS Work Phone: [phone] HospitalCirxztklmy18-10-2448 16:08-0400Body msukkj61.15 kgKareem Dolce DPM FACFAS Work Phone: [facility] HospitalRnfjrtdwal29-65-5025 16:08-0400Diastolic blood ujrwdden01 mm[Hg]Zaid Dolce DPM FACFAS Work Phone: [phone] [place], [place] [address]Yyizhplrhy70-42-9141 16:08-0400Heart rate70 /min Zaid Dolce DPM FACFAS Work Phone: [phone] [place] [facility] HospitalDhspgkyohy69-00-3251 16:08-0400Systolic blood qtmtickm418 mm[Hg]Zaid Dolce DPM FACFAS Work Phone: [phone] [place], [place] [address]Ylztzlzfan86-54-0469 09:15-0400Diastolic blood hyhhmaey59 mm[Hg]MD Todd Dinero Work Phone: [facility]07-19-2024 09:15-0400 Heart rate73 /minMD Todd Dinero Work Phone: [phone])261-[address] [place], [place] [address]07-19-2024 09:15-0400 Respiratory rate18 /minMD Todd Dinero Work Phone: [phone]07-19-2024 09:15-0400 SaO2% (BldA) [Mass fraction]98 %MD Todd Dinero Work Phone: [phone] [place], [place] [address]07-19-2024 09:15-0400 Systolic blood viiypcma147 mm[Hg]MD Todd Dinero Work Phone: [phone]07-19-2024 06:31-0400 Body smbngu994.1 cmMD Todd Dinero Work Phone: [phone] [place], [place] 4606007-19-2024 06:31-0400 Body qirtzhnprks16.9 [degF]MD Todd Dinero Work Phone: [phone] [place], [place] [address]07-19-2024 06:31-0400 Body numann12.5 kgMD Todd Dinero Work Phone: [phone])[address]04-30-2021 21:15-0400 Diastolic blood tvjikpjv09 mm[Hg]Estuardo Carter MD Work Phone: [facility] Work Phone: 1(604) 970-733404-30-2021 21:15-0400Heart rate92 /Stef Carter MD Work Phone: [facility] Work Phone: 1(277) 623-674104-30-2021 21:15-0400Respiratory rate16 /Stef Carter MD Work Phone: [facility] Work Phone: 1(755) 966-958804-30-2021 21:15-8189XaA5% (BldA) [Mass fraction]96 % Estuardo Carter MD Work Phone: [facility] Work Phone: 1(686) 568-611804-30-2021 21:15-0400Systolic blood yiendqqd805 mm[Hg] Estuardo Carter MD Work Phone: [facility] [employer] Work Phone: 1(879) 534-728404-30-2021 19:12-0400Body nmmomtmcwii59.71 [degF] Estuardo Carter MD Work Phone: [facility] [employer] Work Phone: 1(194) 530-576704-30-2021 16:39-0400Body rusiwu81.61 kgEstuardo Carter MD Work Phone: [facility] [employer] Work Phone: [phone] 153-869111-30-2019 11:07-0500Body ckqrkcgwdbu71.6 [degF] Summa HealthComment on above:Performed By: #### VALLBG #### [facility] [address] [place] [address] Encounters Encounter DateEncounter TypeCare ProviderFacilityStart: 03-04-2025 End: 30-41-4967Bhswoe flowsheetCorey Asif DO Work Phone: noms [facility] OBGYNStart: 03-04-2025 End: 90-15-0704Gixnkb flowsheetCorey Asif DO Work Phone: noms Rusty OBGYNStart: 03-04-2025 End: 45-10-1582Oltzlx outpatient visit 15 minutesCorey Asif DO Work Phone: noms Vandervoort OBGYNComment on above: control counseling (Primary Dx); Pain of ovary; SpottingStart: 03-04-2025 End: 44-03-9975llpaupcnkvGAQXE FAZIONot AvailableStart: 02-25-2025 End: 21-59-4844Loaoihzmm identifierEric Faustin DDS Work Phone: Dental ClinicStart: 02-25-2025 End: 95-82-3430pqtnjul oral evaluation - problem focusedEric Faustin [facility] DistrictStart: 05-15-1041anpwejccahIhft FaustinQu[facility] DEPARTMENTStart: 02-14-2025 End: 92-80-2836Msffclmqj Result EncounterCorey Asif DO Work Phone: NOM[facility] External Department UnsolicitedStart: 02-14-2025 End: 78-39-4999Akbdoeznz Result EncounterCorey Asif DO Work Phone: noms External Department UnsolicitedStart: 10-19-2024 End: 39-96-8476krdmizpldcICEQXKDE E PERRYFacility:EU BellevueStart: 10-16-2024 ambulatoryJENNIFER PERRYFacility:[facility] BellevueStart: 10-12-2024 End: 94-65-5158hpzhkncdrxMrxset A [facility] Work Phone: Start: 10-12-2024 End: 69-28-5467Bbgvrhyc ReferredEdna Monaco MD Work Phone: [facility] Path Spec [facility] HospStart: 09-25-2024 End: 07-30-1191Vupjua flowsheetCorey Asif DO Work Phone: noms BCP OBStart: 09-25-2024 End: 49-76-0810Ymhiez flowsheetCorey Asif DO Work Phone: noms BCP OBStart: 09-25-2024 End: 09-61-2288Enleyb outpatient visit 15 minutesCorey Asif DO Work Phone: [facility] BCP OBComment on above:Intrauterine device surveillance; Pelvic crampingStart: 09-25-2024 End: 03-10-1766zxhnyvzmtlSIGHD FAZIONot AvailableStart: 08-27-2024 End: 50-05-3671csyjhoxhswSZQFO FAZIONot AvailableStart: 08-24-2024 End: 10-27-5094gnfzvwnocuDZHRBD H TIMMISNot AvailableStart: 06-28-2024 End: 65-13-1702Axzjkw flowsheetCorey Asif DO Work Phone: noms BCP OBStart: 06-28-2024 End: 11-25-3365Dvcrom flowsheetCorey Asfi DO Work Phone: noms BCP OBStart: 06-28-2024 End: 25-64-5405Soztfhlw Result EncounterCorey Asif DO Work Phone: noms External Department UnsolicitedStart: 06-28-2024 End: 19-81-5042Zgyxdi outpatient visit 15 minutesCorey Asif DO Work Phone: noms BCP OBComment on above:Vaginal discharge; History of ovarian cyst; Yeast infection; Encounter for surveillance of other contraceptiveStart: 06-28-2024 End: 71-94-5464rqggsnbmqtNGFFU FAZIONot AvailableStart: 05-17-2024 End: 04-87-8095Qretbe outpatient visit 25 minutesKareem R Dolce DPM FACFAS Work Phone: noms NMA PODComment on above:Peroneal tendonitis of left lower extremity (Primary Dx); Other enthesopathy of left foot and ankleStart: 05-17-2024 End: 21-29-8129lcqnxzuefpAkrjnk Radatz JrFacility:[facility] Hospitaltart: 05-17-2024 End: 14-75-1390Rhekom flowsheetKareem R Dolce DPM FACFAS Work Phone: [facility] ASC PODStart: 05-17-2024 End: 44-98-5421Asapjb flowsheetKareem R Dolce DPM FACFAS Work Phone: [facility] ASC PODStart: 04-24-2024 End: 89-25-8350kyvwkubovnKTEAOC R DOLCENot AvailableStart: 04-24-2024 End: 74-21-2818Efvvlb outpatient visit 15 minutesKareem R Dolce DPM FACFAS Work Phone: NOMS NMA PODComment on above:Left ankle instability (Primary Dx); Peroneal tendonitis of left lower extremityStart: 04-24-2024 End: 95-70-0359Ppkyco flowsheetKareem R Dolce DPM FACFAS Work Phone: noms ASC PODStart: 04-24-2024 End: 17-31-3755Qdsgcx flowsheetKareem R Dolce DPM FACFAS Work Phone: noms ASC PODStart: 04-23-2024 End: 68-86-4328zthyrqtnnfKQVBC FAZIONot AvailableStart: 04-23-2024 End: 18-98-8173Pbnould encounter procedureCorey Asif DO Work Phone: NOBH BCP OBComment on above:Encounter for IUD removal Start: 04-18-2024 End: 27-79-9293Wyemfa outpatient visit 15 minutesCorey Asif DO Work Phone: NOTL BCP OBComment on above:Encounter for routine checking of intrauterine contraceptive device (IUD); Left sided abdominal painStart: 04-18-2024 End: 92-16-5130iiuvnrxjsqMDFUK FAZIONot AvailableStart: 04-18-2024 End: 94-25-0925Mrbear flowsheetCorey Asif DO Work Phone: noms BCP OBStart: 04-18-2024 End: 52-99-1097Dajzdc flowsheetCorey Asif DO Work Phone: noms BCP OBStart: 04-03-2024 End: 08-45-9040ttlkejuaydGDAAUV R DOLCENot AvailableStart: 04-03-2024 End: 94-38-6554Ybrjml outpatient new 45 minutesKareem R Dolce DPM FACFAS Work Phone: NOFF NMA PODComment on above:Contusion of left foot, initial encounter (Primary Dx); Left ankle instability; Peroneal tendonitis of left lower extremity; Other enthesopathy of left foot and ankle; Ankle contracture, left; Sprain of left foot, initial encounterStart: 04-03-2024 End: 33-75-4705Nqtxgo flowsheetKareem R Dolce DPM FACFAS Work Phone: noms ASC PODStart: 04-03-2024 End: 68-70-4257Vklegy flowsheetKareem R Yisel DPM FACFAS Work Phone: noms ASC PODStart: 03-09-2024 End: 94-57-0667rvrgylxczbPX Todd M Hoy Work Phone: [facility] Work Phone: Start: 03-09-2024 End: 25-23-7204Ahqmqfj encounter procedureMD Todd Hoy Work Phone: [facility] [address] Work Phone: start: 02-20-2024 End: 57-91-1850jeoshwplgfVR Todd M Hoy Work Phone: [facility] Work Phone: Start: 02-20-2024 End: 14-43-4679Hyihezr encounter procedureMD Todd Hoy Work Phone: [facility] [address] Work Phone: start: 01-25-2024 End: 27-22-7353zwzmagyrjfUM Todd M Hoy Work Phone: [facility] Work Phone: Start: 01-25-2024 End: 54-96-4263Zodtyrs encounter procedureMD Todd Hoy Work Phone: [facility] [address] Work Phone: start: 01-09-2024 End: 08-76-2422kizvsoirymMU Todd M Hoy Work Phone: [facility] Work Phone: Start: 01-09-2024 End: 68-13-7262Dqcoenn encounter procedureMD Todd Hoy Work Phone: [facility] [address] Work Phone: start: 12-30-2023 End: 73-95-2213Yzuydpxsc department patient visitMD Todd Dinero Work Phone: [facility] Work Phone: Start: 10-17-2023 End: 98-91-6149Yxvunxdvo Result EncounterCorey Asif DO Work Phone: noms External Department UnsolicitedStart: 10-17-2023 End: 53-88-1600Bmxnyedao Result EncounterCorey Asif DO Work Phone: noms External Department UnsolicitedStart: 09-05-2023 End: 99-16-7106Gigautjlw Result EncounterCorey Asif DO Work Phone: noms External Department UnsolicitedStart: 09-05-2023 End: 90-44-6228Rqnghmrwt Result EncounterCorey Asif DO Work Phone: noms External Department UnsolicitedStart: 08-17-2022 End: 33-82-3337oswovspuwcBH DMITRI ASIF .Facility:J0Acaon: 61-18-1040Feutgjqbh for preprocedural laboratory examinationDR DMITRI ASIF .[facility] Start: 07-02-2022 End: 24-12-4345qdqjrbojduQD DMITRI ASIF .Facility:G5Glduc: 06-29-2022 End: 58-92-5575sdowayxgdiPH DMITRI ASIF .Facility:U3Zalbt: 06-29-2022 End: 75-77-2531Tuxmwfzoy for preprocedural laboratory examinationDR DMITRI ASIF .Facility:O5Zhawx: 06-16-2022 End: 94-66-3582nppcrklliePK DMITRI ASIF .Facility:N9Wnnvz: 06-11-2022 End: 47-39-1146vglwvuueyrQP TODD HOY .Facility:G7Jlpta: 05-11-2022 End: 63-64-1443vjtzidewpnTH DMITRI ASIF .Facility:Q2Hfwug: 03-04-2022 End: 77-20-0714hhlfayaruoQM DMITRI ASIF .Facility:O3Vmngu: 01-18-2022 End: 85-04-8526xhvjfrizrgIN TODD HOY .Facility:J1Otujd: 10-10-2020 End: 07-45-2254Trgplkvqs department patient visitCIGENNA Ernst HospitalStart: 10-10-2020 End: 94-25-0280Jypvvnctz department patient visitCiprrichard Carter MD Work Phone: mthz ORComment on above:Flank pain (Primary Dx); Dermoid cyst of right ovary; Post-op pain Procedures DateProcedureProcedure DetailPerforming ClinicianStart: 03-04-2025 End: 80-80-8751Aypao dip stick/tablet rgnt non-auto w/o micrscpCorey Asif DO Work Phone: Start: 02-25-2025 End: 96-35-0698fpjpotof - single radiographic imageEric Faustin DDSStart: 02-25-2025 End: 91-61-6196Aboqhgwtqpcin of current medicationsEric Faustin DDSStart: 02-25-2025 End: 04-17-2569luyiuxdrn - periapical first radiographic imageEric Faustin DDS Start: 02-25-2025 End: 05-74-9870hvny hygiene instructionsEric Faustin DDSStart: 16-26-1425RR PELVIS TRANSVAGINALCorey Asif DO Work Phone: Start: 31-05-4740EGRJUAHRK VAGINITIS (HTRX)Dmitri Asif DO Work Phone: Start: 75-11-6700WAE REMOVALCorey Asif DO Work Phone: Start: 50-84-1488C-ray of left ankleMD Todd Hoy Work Phone: Start: 71-93-3367S-ray of left footMD Todd Hoy Work Phone: Start: 18-09-6831BX PELVIS W/ TRANSVAGINALCorey Asif DO Work Phone: Start: 12-50-1430WS PELVIS W/ TRANSVAGINALCorey Asif DO Work Phone: Start: 44-91-2989Ar abdomen & pelvis w/contrast materialEstuardo Carter MD Work Phone: Start: 64-50-6039Ggxgqyuieiyzh metabolic panelEstuardo Carter MD Work Phone: Start: 51-59-5707Meklvfxhhx microscopic onlyEstuardo Carter MD Work Phone: Start: 66-20-3634Ulltz dip stick/tablet rgnt auto w/o microscopyEstuardo Carter MD Work Phone: Plan of Treatment DateCare ActivityDetailAuthorStart: 03-26-2025 End: 46-50-9846Ttdbjbg encounter kvxpjyyjy68/14/2025 2:00 PM EDT Procedure Visit GALILEA MCGILL [address] [place] [address] Dmitri Gold, [address] [place] [address] GALILEA WRIGHTGYNStart: 83-57-7852JvseAdventHealth [facility] Work Phone: Start: 03-04-2025 End: 69-36-8254Yerhhpn encounter /22/2025 2:00 PM EDT Office Visit GALILEA MCGILL [address] [place] [address] Dmitri Gold DO [address] [place], [place] [id number] ArrivedNOMS Rusty OBGYNComment on above:ArrivedStart: 36-45-0948Ahpehcn management education, guidance, and counselingDietary management education, guidance, and counselingOsmond General Hospitaltart: 34-13-1605[facility] Work Phone: Start: 10-16-2024 End: 65-58-7066Gxautcmolnxc / ancillary services beccnizzkj22/06/2025 10:00 AM EDT Ancillary Procedure [facility] OB [address] [place], [place] [phone] N[facility] BCP OBStart: 34-62-8942Wfnjrpxl identified in Urine by CultureUrine City Hospitaltart: 00-77-5082Wtptn [facility]: 10-10-2024 End: 32-00-6310Rgugahg encounter evonqpogj12/30/2025 2:20 PM EDT Office Visit [facility] [address] [place] [address] Dmitri Gold, DO [address] [place], [place] [id number] NOMS BCP OBStart: 09-25-2024 End: 33-59-6839VZ Pelvis transvaginalUS pelvis transvaginal Imaging Routine Intrauterine device surveillance Pelvic cramping Expected: 09/25/2024, Expires: 03/27/2025NO[facility] Work Phone: comment on above:Expected: 09/25/2024, Expires: 03/27/2025Start: 09-25-2024 End: 17-84-6949Jkhojlx encounter nupqgoisw01/15/2025 9:10 AM EDT Office Visit [facility] [address] [place] [address] Dmitri Gold, DO [address] [place], [place] [id number] ArrivedNOJOHN [facility] OBComment on above:ArrivedStart: 06-28-2024 End: 40-29-4048Dkrwnkp encounter dyebuxjau38/16/2025 8:10 AM EST Office Visit [facility] [address] [place] [address] Dmitri Gold, DO [address] [facility] [place] [address] ArrivedNOMS BCP OBComment on above:ArrivedStart: 05-17-2024 End: 23-90-7187Isrwfcd encounter procedureNOMS NMA PODComment on above:Arrived Start: 04-24-2024 End: 84-44-5828Kyyoqlt encounter mwqvzojte15/12/2024 4:10 PM EST Office Visit [facility] NMA POD [address] [place] [phone] Zaid Morillo, DPM FACFAS [address] [facility] [place] [address] NOMS NMA PODStart: 04-23-2024 End: 73-86-1194Jjmkhme encounter zinjvpynv18/11/2024 8:30 AM EST Procedure Visit [facility] [address] [facility] [place] [phone] Dmitri Gold, [address] [facility] [place] [address] NOMS BCP OBStart: 04-18-2024 End: 27-89-8457Xafvwur encounter feiypktaz55/06/2024 3:40 PM EST Office Visit [facility] OB [address] [facility] [place] [phone] Dmitri Gold, DO [address] [facility] [place] [address] NOMS BCP OBStart: 04-17-2024 End: 79-49-4059Nnpgnum encounter sqwggylgr64/05/2024 3:40 PM EST Office Visit [facility] NMA POD [address] [place] [phone] Zaid Morillo, DPM FACFAS [address] [facility] [place] [address] NOMS NMA PODStart: 50-05-4992Mfwzzmosp vaccinationFlu vaccine (Season Ended)[facility] Phone: start: 07-72-4768BBqP/Tdap/Td vaccine (1 - Tdap) DTaP/Tdap/Td vaccine (1 - Tdap)[facility] Phone: start: 25-75-8069VMTNG-19 Vaccine (1)COVID-19 Vaccine (1)[facility] Phone: start: 86-12-8699Vvyxtmbfw for Chlamydia trachomatis Chlamydia screenCommunity Regional Medical CenterBioVentrix Phone: start: 82-65-6019CUE screeningHIV screenCommunity Regional Medical CenterBioVentrix Phone: start: 17-62-5018ACM vaccine (1 - 2-dose series)HPV vaccine (1 - 2-dose series)[facility] Phone: start: 87-95-4638Gjkmhqugu vaccine (1 of 2 - 2-dose childhood series)Varicella vaccine (1 of 2 - 2-dose childhood series)[facility] Phone: start: 28-76-5934Wmdtwcbcb C screeningHepatitis C screenCommunity Regional Medical CenterBioVentrix Phone: cHLAMYDIA TRACHOMATIS (GENITO/STI)CHLAMYDIA TRACHOMATIS (GENITO/STI) Lab Routine Vaginal discharge Yeast infection Ordered: 06/28/2024[facility] HealthcareComment on above:Ordered: 06/28/2024Neisseria gonorrhoeae DNA [Presence] in Unspecified specimen by HALLEY with probe detection Neisseria gonorrhea DNA probe, direct Lab Routine Vaginal discharge Yeast infection Ordered: 06/28/2024[facility] HealthcareComment on above:Ordered: 06/28/2024 Oxygen therapy [Minimum Data Set]Initiate Oxygen Therapy Protocol Respiratory Care Routine Daily until discontinued starting 10/10/2020[facility] Phone: Comment on above:Daily until discontinued starting 10/10/2020atient EducationFoot Sprain EDLake [facility] Work Phone: [facility] Work Phone: Phase I & II - metered glucosePhase I & II - metered glucose Point of Care Testing Routine As Needed until discontinued starting 10/10/2020[facility] Work Phone: comment on above:As Needed until discontinued starting 10/10/2020URESWAB(R) ADVANCED VAGINITIS PLUS, TMASURESWAB(R) ADVANCED VAGINITIS PLUS, TMA Pathology and Cytology Routine Vaginal discharge Yeast infection Ordered: 06/28/2024[facility] [employer] Work Phone: comment on above:Ordered: 06/28/2024Surgical Pathology Surgical Pathology Lab Routine Release Upon Ordering for 1 Occurrences starting 10/10/2020[facility] Work Phone: comment on above:Release Upon Ordering for 1 Occurrences starting 10/10/2020 Payers DatePayer CategoryPayerPolicy [id number]'s [id number]'s [id number]681.551624.65777-01-2434Axxm-vje [id number] Health Insurance1.2.840.254709.1.13.693.2.7.9.179464.190267.84196-80-6777Tzpvpmo Health [id number] Health [id number] [id number] 2.16.840.1.876623.3.579.2.17617-55-1126Cpbawwg3153655 2.840.1.528139.3.579.2.49731-63-6067Xczjyam8945630 2.16840.1.312874.3.579.2.18475-28-2657Bpfzfif4264581 2.840.1.115657.3.579.2.15766-70-3848Fijckcn6700000 2.840.1.102898.3.579.2.01324-41-8929Vnhpzsi2605353 2.840.1.730015.3.579.2.00192-44-1957Kdlieom7841208 2.840.1.094621.3.579.2.97447-92-1864Aukuijk1694165 2.0.1.932288.3.579.2.57606-55-0666Morcwxg60180140 2.840.1.719710.3.579.2.33578-03-0026Hhlmvzp27889441 2.0.1.974263.3.579.2.24465-47-5074Igfptzm71424466 2.840.1.309491.3.579.2.295490-13-7894Tlzgonb65488738 2.840.1.427383.3.579.2.821796-92-3376Jstmsjb5188778 2.840.1.139336.3.579.2.575374-57-0434Aztispb4422300 2.840.1.300694.3.579.2.774735-81-3844Lstqpnr1760339 2.840.1.596630.3.579.2.709824-38-0201Skluuqr6118663 2.840.1.951034.3.579.2.879183-25-7909Hlmscod4050955 2.840.1.651678.3.579.2.401797-19-1475Hclccet2181730 2.840.1.513994.3.579.2.190819-66-8874Jcfdjmu4054206 2.840.1.444799.3.579.2.077785-14-9024Golerqy0126336 2.840.1.374179.3.579.2.782282-04-9093Eocoxaa6440914 2.0.1.921677.3.579.2.078767-16-0072Rcctjur4292363 2.0.1.171978.3.579.2.562020-23-3697Njnvzox4984359 2..1.394425.3.579.2.360653-98-7089Epboqvn6820162 2.0.1.582732.3.579.2.474108-34-4186Qonidyk8452425 2..1.212912.3.579.2.069269-53-6794Ibzgjfn9730183 2.0.1.609307.3.579.2.337848-61-9822Oxtvtef4228615 2..1.363951.3.579.2.249064-10-6267Dajqmgm8323989 2.840.1.862092.3.579.2.313242-94-0901Xwiaeor7906697 2.0.1.126436.3.579.2.010837-34-2819Tqxfdko7501925 2.840.1.762905.3.579.2.798567-91-7677FtkmkrhCXF518L07528Vaohhho Health [id number] /BVGCX804064744 g348d4q8-lm47-162v-kjk7-q08c3dm8i3yxKpdwlql76729141 2.16.840.1.114759.3.579.2.068Wjfquqy80171915 2.16.840.1.158850.3.579.2.531 Icowtdm40850559 2.16.840.1.273180.3.579.2.309Vrxkywc86829014 2.16.840.1.420587.3.579.2.546Cijgpka13086089 2.16.840.1.576056.3.579.2.531 Cxskupo98629912 2.16.840.1.926497.3.579.2.296Ijvtqrr25959532 2.16.840.1.038938.3.579.2.531Worker's CompensationIndustrial Self Ins [facility] [id number] Social History DateTypeDetailFacilityStart: 10-10-2020 End: 02-74-1146Gzhofot smoking status NHISNever smokerMercy Health Kings Mills Hospitaltart: 10-10-2020 End: 24-57-4310Rosaegk use and exposureNever [facility] TulsaSpinal KineticsStart: 10-10-2020 Alcohol intakeLifetime non-drinker (finding)[employer] Work Phone: start: 90-85-2297Agyevaf SDOH Alcohol Eplboxzfl5Brlwj Health Work Phone: sex Assigned At BirthNot on [facility] creekPetHub Work Phone: exposure to SARS-CoV-2 (event)Not sureCommunity Regional Medical CenterContractor [facility] Start: 47-50-1222Czo Assigned At BirthHarrison [facility] Hospital Tobacco smoking status NHISTobacco smoking consumption unknownNOMA Healthcare Start: 26-22-1728Qymsay identityIdentifies as female gender (finding)[facility] HealthcareStart: 04-03-2024 End: 83-43-0716Vgvpbs orientationNot on fileNOMA HealthcareStart: 04-03-2024 End: 61-84-0498Zkgthuwmm beverage intakeDeferNOMS HealthcareStart: 04-03-2024 End: 46-07-1737Kvoscbs of Social functionNOMA HealthcareStart: 08-27-2024 End: 93-66-1311Uakybigzw beverage intakeCurrent drinker of alcohol (finding)[facility] HealthcareStart: 34-81-8123Inqwlre CommentsocialNOMA HealthcareStart: 10-14-2024 SexFemale (finding)[facility] Hospitaltart: 81-92-1029Zgebwau intakeAlcohol Use [facility] Hospitaltart: 02-25-2025 Tobacco use and exposureNon-Smoking Tobacco Use [facility] Hospitalexual OrientationStraight or heterosexualMedical Center Of The [facility]ies Work Phone: Start: 42-75-7398LwuKcoqflWSAO HealthcareNEGATED: Highlighted rowStart: 30-64-2520Ldyhdbk smoking status NHISNever smokerMedical Center Of The RockiesNEGATED: Highlighted rowStart: 04-13-3015Agnlsox of tobacco useCurrent non-[facility] Clinical Notes 10-10-2020 to 03-04-2025 Note Date & EkomZrxeYcutjghg28-44-5302 History of Present illness Narrative* Aneta Carter MA - 03/04/2025 2:00 PM EDT Reason for Appointment: Patient ID: Fadia Lan is a 24 y.o. female who presents for Pain (Pt present today for Left ovarian pain) Patient presents today for Left ovarian pain. MEDICATIONS Current Outpatient Medications Medication Instructions clotrimazole-betamethasone [...] Postural orthostatic tachycardia syndrome 03/22/2019 Seizure-like activity (HCC) 05/12/2019 Sequelae of unspecified infectious and parasitic [...] Respiratory: Negative. Cardiovascular: Negative. Gastrointestinal: Negative. Genitourinary: Positive for pelvic pain. Musculoskeletal: Negative. [...] nursing note reviewed. Exam conducted with a occupational safety specialist present. Vitals: Estimated body mass index is 21.97 kg/m as calculated from the following: Height as of this encounter: 5' 5 . Weight as of this encounter: 132 lb. BP: 110/68 No LMP recorded (lmp unknown). (Menstrual status: IUD). ASSESSMENT & PLAN ICD-10-CM 1. Pain of ovary N94.89 Pt present today to discuss US results due to left ovarian pain. Pt currently has an IUD Mirena andstates she has been dealing w/ovarian cysts since she gotten the IUD. Pt unsure if she could possibly be . Since she feels as though she is having symptoms. Pt was asked for a urinesample test for and UTI. Pt would like to discuss IUD with Dr. Gold she has concerns shewould like to discuss w/Asif. Pt had the IUD inserted on 08/27/2024. Pt would like to also discusshormone imbalance. Urine was dipped a negative test and blood found in urine. Obtain cultures on date of IUD removal and will begin Nuva Ring. Documented by Aneta Carter MA on behalf of: Dmitri Gold DO documented in this encounterNorth Kansas City HospitalAfwtxnrvqp07-66-5698 Evaluation note* Type Assessment Date assessment Body mass index [BMI] 20.0-20.9, adult [facility] Work Phone: 1(756) 526-617709-15-2025 History of Present illness Narrative* Encounter Date Complaint History Of Prese nt Illness [facility] Work Phone: 1(683) 798-805909-15-2025 Instructions* Date Instruction Additional Infor mation Dietary management e ducation, guidance, and counseling Related to Body mass index [BMI] 20.0-20.9, adult [facility] Work Phone: 1(868) 269-385105-09-2025 NotePatient Education Gastroenterology Constipation, Adult Constipation is when a person has fewer than three bowel movements in a week, has difficulty havinga bowel movement, or has stools (feces) that are dry, hard, or larger than normal. Constipation maybe caused by an underlying condition. It may [...] as fried or sweet foods. These include zambian fries, hamburgers, cookies, candies, and soda. ??? Drink enough fluid to keep your urine pale yellow. General instructions ??? Exercise regularly or as told by your health care provider. Try to do 150 minutes of moderate exercise each week. ??? Use the bathroom when you have the urge to go. Do not hold it in. ??? Take njgc-ocl-npbjjsp and prescription medicines only as told by [...] keep your urine pale yellow. ??? Take armb-sud-fcuvkkf and prescription medicines only as told by your health care provider. This includes any fiber supplements. This information is not intended to replace advice given to you by your health care provider. Make sure you discuss any questions you have with your health care provider. Document Revised: 04/13/2023 Document Reviewed: 04/13/2023 [employer] Patient Education ? 2023 [employer]. Urology Kidney Stones Kidney stones are rock-like [...] shock waves. ??? Beverley (more content not included)...[facility]04-15-2025 History of Present illness Narrative* Edita Romo LPN - 09/25/2024 9:10 AM EDT Reason for Appointment: Patient ID: Fadia Lan [...] nursing note reviewed. Exam conducted with a occupational safety specialist present. Vitals: Estimated body mass index is [...] of: Dmitri Gold DO documented in this encounterNorth Kansas City HospitalDnhoesgkmc75-31-9750 History of Present illness Narrative* Christine Lopez, [employer] - 06/28/2024 8:10 AM EST Reason for Appointment: Patient ID: Fadia Lan [...] nursing note reviewed. Exam conducted with a occupational safety specialist present. Vitals: Estimated body mass index is [...] to possible cyst formation. Patient will start June andreturn to clinic in 12 weeks for annual appointment. Patient voiced she has history of ovarian cystand would like to hold off on ultrasound and will call back to office if she would like to have ordered. Documented by Christine Lopez LPN on behalf of: Dmitri Gold DO documented in this encounterNorth Kansas City HospitalWqmgoqtgcs54-75-6326 History of Present illness Narrative* Zaid Morillo DPM FACFAS - 05/17/2024 4:20 PM EST Patient: Fadia Lan : 2000 PCP: Todd Dinero MD SUBJECTIVE This is a 23 y.o. female that presents today after a workman's comp injury left ankle injection andaso is working well. She states the injection of the brace has helped tremendously she has a littleto no pain. She was going to return [...] progressing well. BRISEIDA Madrid documented in this encounterNorth Kansas City HospitalFefzjikhcc21-16-6794 History of Present illness Narrative* BRISEIDA Madrid - 04/24/2024 4:10 PM EST Patient: Fadia Lan : 2000 PCP: Todd [...] ASO brace she was advised to use anti- inflammatories as needed. Patient will follow up in 3 weeks. BRISEIDA Madrid documented in this encounterNorth Kansas City HospitalJlgojlfdnl29-52-4241 History of Present illness Narrative* Dmitri Gold DO - 04/23/2024 8:30 AM ESTAssociated Order(s): IUD Removal Post-Procedure Diagnose(s): Encounter for [...] nursing note reviewed. Exam conducted with a occupational safety specialist present. Vitals: Estimated body mass index is [...] by: Dmitri Gold DO Authorized by: Dmitri oGld DO Consent: Consent obtained: Written Consent given [...] of: Dmitri Gold DO documented in this encounterJerome Ville [address]Ospefqpnjs20-03-6918 History of Present illness Narrative* Edita Romo, [employer] - 04/18/2024 3:40 PM EST Reason for Appointment: Patient ID: Fadia Lan [...] nursing note reviewed. Exam conducted with a occupational safety specialist present. Vitals: Estimated body mass index is [...] of: Dmitri Gold DO documented in this encounterNorth Kansas City HospitalSfnjdipcuj16-09-8377 History of Present illness Narrative* Zaid Morillo DPM FACFAS - 04/03/2024 3:30 PM EDT Patient: Fadia Lan : 2000 PCP: Todd Dinero MD SUBJECTIVE This is a 23 y.o. female that presents today for a chief complaint of lateral ankle pain it startedback in December when her palate truck at work ran over her foot he then had to back up the palate truck and when that occurred she felt her ankle go from right to left. Patient then went to the emergency room did an x- ray she continued to have pain and was seen by a occupational physician due to the fact that it was a workman's comp issue. Patient then had an MRI and a CT scan which we will get the results from that faxed over and put in her chart. Patient states that she was then sent to physicaltherapy they discharge her for physical therapy and [...] left dorsiflexors and plantar flexors of her foot.She has pain coursing at the EDB muscle left and mild pain with the peroneal tendons between the insertion in the lateral fibula she has no erythema or edema noted Achilles is full without any type of palpable [place] she has full plantar flexion without pain [...] ASO brace with a good structured athletic louis e she is going to return in 2 weeks. BRISEIDA Madrid documented in this encounterNorth Kansas City HospitalTzichirdxa22-50-2815 NoteOPERATIVE NOTE OPERATION DATE: 07/02/2022 PROCEDURE: Diagnostic laparoscopy with left ovarian cystectomy and lysis of bowel adhesions from the pelvic side wall. PREOPERATIVE DIAGNOSIS: Pelvic pain, left ovarian cyst. POSTOPERATIVE DIAGNOSIS: Pelvic pain, left ovarian cyst, bowel adhesions to the left pelvic side wall. ANESTHESIA: General. SURGEON: Dmitri Gold D.O. PULMONARY CARE NURSE: YASEMIN Stauffer URINE OUTPUT: Yellow and clear. [...] was made. The fascia was tented using Cynthai clamps and the fascia was entered sharply. [...] was taken to Recovery Room in stable condition.[facility] HospitalKibymjcj10-47-5270 History of Present illness Narrative* Leon Leon RN - 10/10/2020 9:35 PM EDT Discharge Criteria Inpatients must meet Criteria 1 [...] 14. Accompanied by a responsible adult. Yes * Leon Leon RN - 10/10/2020 9:27 PM EDT Discharge instructions given to patient and parents with understanding voiced. Questions answered. * Leon Leon RN - 10/10/2020 8:55 PM EDT Ambulated to bathroom per one assist, gait steady no dizziness or lightheadedness noted. Once in bathroom sat on chair states I feel really dizzy like I am going to pass out cool washcloth applied to forehead and neck, skin warm dry and pale pink, resp easy and unlabored. After approx. 5-10 minutes assisted back to chair without incident. * Leon Leon RN - 10/10/2020 8:45 PM EDT States I can't breathe reassurance given, instructed to take slow deep breath, SpO2 reading was 95-97%, explained that it was probably just the air from the procedure. documented in this [facility] Work Phone: 1(279) 145-822504-30-2021 Hospital Discharge instructions* Instructions* Leon Leon RN - 10/10/2020 SAME DAY [...] surgeon for further instructions. A small amount ofbright red blood is to be expected. 7. You may remove your dressing the morning following surgery; leave the steri- strips in place, they will fall off on [...] in hot tubs/saunas or swimming in pools/ponds for6 weeks or until cleared by your surgeon. 14. Call your surgeon for any questions regarding your surgery. 15. Remove Scopolamine patch in 3 days 16. Call for an appointment to see your surgeon in [address] Rao -- [place] office [phone] [place] office [phone] documented in this encounterAdena [facility] Work Phone: consult note* Clinical Note Date No Information [facility] Work Phone: Discharge summary* Clinical Note Date No Information [facility] Work Phone: Evaluation note* Diagnosis Flank pain- Primary Abdominal pain, unspecified site Dermoid cyst of right ovary Post-op pain Other acute postoperative pain Pelvic pain Right ovarian cyst Other and unspecified ovarian cyst documented in this encounter [facility] Work Phone: evaluation noteNo assessment information available [facility] Work Phone: Evaluation note* Diagnosis Contusion of left foot, initial encounter- Primary Left ankle instability Other joint derangement, not elsewhere classified, ankle and foot Peroneal tendonitis of left lower extremity Other enthesopathy of left foot and ankle Ankle contracture, left Sprain of left foot, initial encounter documented in this encounter [facility] HealthcareEvaluation note* Diagnosis Encounter for routine checking of intrauterine contraceptive device (IUD) Left sided abdominal pain Abdominal pain, unspecified site documented in this encounter [facility] HealthcareEvaluation note* Diagnosis Encounter for IUD removal documented in this encounter [facility] HealthcareEvaluation note* Diagnosis Left ankle instability- Primary [...] Pelvic cramping documented in this encounter [facility] HealthcareEvaluation note* Diagnosis control counseling- Primary Pain of ovary Spotting Other specified noninflammatory disorder of vagina documented in this encounter [facility] HealthcareHistory and physical note* Clinical Note Date No Information [facility] Work Phone: Progress note* Clinical Note Date No Information [facility] Work Phone: Reason for referral (narrative)* Reason For Referral No Information [facility] Work Phone: Review of systems Narrative - Reported* System Pos/Neg Findings No Information [facility] Work Phone: Summary Purpose Family History Family Member Type Diagnosis Age At Onset No Information Advance Directives Advance Directive Response Recorded Date/ Time Advance Directives No January 14 1:30pm Directive Yes / No Effective Date File Name No Information Hospital Course Note HNO ID: [id number] Author: Alison Morales Service: General Internal Medicine [...] section and content) DATE CREATED AUTHOR 08/14/2019 [facility] DATE CREATED AUTHOR AUTHOR'S ORGANIZ ATION 10/15/2020 [facility] DATE CREATED AUTHOR AUTHOR'S ORGANIZ ATION 08/26/2022 [facility] DATE CREATED AUTHOR AUTHOR'S ORGANIZ ATION 10/21/2024 [facility] DATE CREATED AUTHOR AUTHOR'S ORGANIZ ATION 10/23/2024 [facility] DATE CREATED AUTHOR AUTHOR'S ORGANIZ ATION 02/26/2025 [facility] DATE CREATED AUTHOR AUTHOR'S ORGANIZ ATION 03/05/2025 [facility] EPIC Reason for Visit (unrecogniz ed section and content) ReasonCommentsFlank Painpain upon movement; left sidedReasonCommentsFoot Pain *BWC* LT foot with tendonosisReasonCommentsContraceptionPelvic PainReason CommentsContraceptionReasonCommentsFoot ProblemF/U LT tendinitis inj s9Ufypdw CommentsAnkle Injury*BWC* F/U LT ankle contusionReasonComments Vaginitis/Bacterial VaginosisReasonCommentsString checkReasonCommentsPainPt present today for Left ovarian pain Ordered Prescriptions (unrec ognized section and content) PrescriptionSigDispensedRefillsStart DateEnd Date HYDROcodone-acetaminophen (NORCO) 5-325 MG per tablet Indications:Post-op painTake 1 tablet by mouth every 4 hours as needed for Pain for up to 3 days. Intended supply: 3 days. Take lowest dose possible to manage pain 12 tablet /08/2020 ketorolac (TORADOL) 10 MG tablet Take 1 tablet by mouth every 6 hours as needed for Pain 12 tablet Care Teams (unrecognized sec tion and content) Team Status: Active Member Role Status Dates Todd M Hoy , MD Primary Care Provider Active Team Status: Inactive Member Role Status Cash Dinero MD Primary Care Provider Active Start: December 30, 2023 End: December 30, 2023Mao Platagency ProviderActiveStart: December 30, 2023 End: December 30, 2023 Team Status: Inactive Member Role Status Cash Dinero MD Primary Care Provider Active Start: January 09, 2024 End: January 09, 2024Edvenancio Garces Jr, DOAttending ProviderActiveStart: January 09, 2024 End: January 09, 2024 Team Status: Inactive Member Role Status Cash Dinero MD Primary Care Provider Active Start: January 25, 2024 End: January 25, 2024Edvenancio Radatz , DOAttending ProviderActiveStart: January 25, 2024 End: January 25, 2024 Team Status: Inactive Member Role Status Cash Dinero MD Primary Care Provider Active Start: February 20, 2024 End: February 20, 2024Edvenancio Radatz , DOAttending ProviderActiveStart: February 20, 2024 End: February 20, 2024 Team Status: Inactive Member Role Status Cash Dinero MD Primary Care Provider Active Start: March 09, 2024 End: March 09, 2024Edvenancio Radceleste Sexton, DOAttending ProviderActiveStart: March 09, 2024 End: March 09, 2024Team MemberRelationshipSpecialtyStart DateEnd Date Todd Dinero MD [address] [place] [address] [facility]02/15/23Team MemberRelationshipSpecialtyStart DateEnd Date Todd Dinero MD [address] [place] [address] PCP - Generalmily Medicine02/15/23Team MemberRelationshipSpecialtyStart DateEnd Date Todd Dinero MD [address] [place] [facility] [address] PCP - GeneralFamily Medicine02/15/23Team MemberRelationshipSpecialtyStart DateEnd Date Todd Dinero MD [address] [place] [facility] [address] PCP - GeneralFamily Medicine02/15/23Team MemberRelationshipSpecialtyStart DateEnd Date Todd Dinero MD [address] [place] [facility] [address] PCP - GeneralFamily Medicine02/15/23Team MemberRelationshipSpecialtyStart DateEnd Date Todd Dinero MD [address] [place] [facility] [address] PCP - GeneralFamily Medicine02/15/23Team MemberRelationshipSpecialtyStart DateEnd Date Todd Dinero MD [address] [place] [facility] [address] PCP - GeneralFamily Medicine02/15/23Team MemberRelationshipSpecialtyStart DateEnd Date Todd Dinero MD [address] [place] [facility] [address] PCP - GeneralFamily Medicine02/15/23Team MemberRelationshipSpecialtyStart DateEnd Date Todd Dinero MD [address] [place] [facility] [address] PCP - GeneralFamily Medicine02/15/23Team MemberRelationshipSpecialtyStart DateEnd Date Todd Dinero MD [address] [place] [address] [facility] Team Status: Inactive Member Role Status Dates Edna Monaco MD Attending Provider Active Sta rt: October 12, 2024 End: October 12, 2024Team MemberRelationshipSpecialtyStart DateEnd Date Todd Dinero MD PCP - [facility]02/15/23Team MemberRelationshipSpecialtyStart DateEnd Todd Dinero MD [address] [place] [address] PCP - [facility]02/15/23 Name Effective Dates (start - stop) Status Members No Information Team MemberRelationshipSpecialtyStart DateEnd Date Todd Dinero MD [address] [place] [address] PCP - [facility]02/15/23 Goals (unrecognized section and content) Health Concern Goal Type Priority Status No Information FOR RECORDS PERTAINING TO PATIENTS WHO ARE [...] BE BASED ON THE PRIMARY CLINICAL RECORDS. [facility]. provides no warranty or guarantee of the accuracy or completeness of information in this document.
--- OUTSIDE RECORDS SUMMARY | 2025-04-24 17:52 | XMS_ITS | Clinical Summary ---
Author Organization [facility] Address [address] [place] [address] Care Team Providers Care Air Analysis Engineering Technician Name Role Phone Todd José MD Primary Care Provider [phone], Hvi Card Consult Unavailable Unavailable Robert Weiss DO Unavailable Allergies No known active allergies Medications MedicationSigDispense QuantityRefillsLast FilledStart DateEnd DateStatus pyridostigmine bromide 30 mg tab Take 60 mg by mouth.Active midodrine (PROAMATINE) 2.5 mg tablet Take 7.5 mg by mouth three times daily. Active citalopram hydrobromide (CELEXA) 10 mg tablet Take 10 mg by mouth once daily.Active sodium chloride 1 g tab Take 1 g by mouth once daily.Active POTASSIUM ORAL Take by mouth.Active Active Problems ProblemNoted DateDiagnosed EuydEpdoezf38/01/2019 Assessment & Plan (05/15/2019 5:43 PM EST): [...] Autonomic disorder clinic Telemetry monitoring Other chest pain05/13/2019 Assessment & Plan (05/15/2019 5:43 PM EST): [...] such as cardiac MRI per Cardiology Elevated jbeylphk12/01/2019 Assessment & Plan (05/14/2019 6:08 PM EST): Assessment: History of mild troponin elevation during past hospitalizations. Her troponin is normalnow. EKG shows sinus arrhythmia. PLAN: Awaiting echocardiogram: history of ?prominent chordal structure near the TV. F/u Cardiology recs Seizure-like ucixvxqs82/30/2019 Family History Medical HistoryRelationCommentsNo Known ProblemsBrotherNo Known ProblemsFatherNo Known ProblemsMotherNo Known ProblemsSisterRelationStatusCommentsBrotherAlive FatherAliveMotherAliveSisterAlive Social History Tobacco UseTypesPacks/DayYears UsedDateSmoking Tobacco: NeverSmokeless Tobacco: Never Tobacco Cessation:Counseling Given: No Alcohol UseStandard Drinks/WeekCommentsNot Currently0 (1 standard drink = 0.6 oz pure alcohol)PHQ-2AnswerDate RecordedPHQ-2 bzeqc98408/02/2018Area Deprivation IndexAnswerDate RecordedNational Score (1-100), lower number is lower riskNot on file05/22/2020State Score (1-10), lower number is lower riskNot on file 05/22/2020Data from: https://www.neighborhoodatlas.[facility].edu/. Last address used for calculationNot on file05/22/2020CommentsUnknownSex and Gender InformationValueDate RecordedSex Assigned at BirthNot on fileLegal Sex Rnryur9004/27/2019 11:29 AM ESTGender IdentityNot on fileSexual OrientationNot on file Last Filed Vital Signs Vital SignReadingTime TakenCommentsBlood Wmmgtekj89/60006/29/2019 10:43 AM EST Qhtvm092506/29/2019 10:43 AM RSAHwriakpgjym45.7 ??C (98.1 ??F)05/16/2019 11:32 AM ESTRespiratory Mcnx486508/05/2018 12:33 PM ESTOxygen Fscrnbgbja68%06/29/2019 10:43 AM ESTInhaled Oxygen Concentration--Kkuzhz42.3 kg (117 lb 8 oz)06/29/2019 3:14 PM ZPXYesxau577.6 cm (5' 6 )06/29/2019 3:14 PM ESTBody Mass Index18.96 06/29/2019 3:14 PM EST Plan of Treatment Health MaintenanceDue DateLast DoneCommentsPeds To Adult Transition Initial Arevwlvdwo07/23/2013Peds To Adult Transition Annual Gdtytovkfe17/23/2015HPV Vaccine (1 - 3-dose series)2015Anxiety Aizoqymte02/23/2019Depression Hklgelzym63/23/2019HIV Ccjiimbik85/23/2019Hepatitis C Zsjyypkdi45/23/2019 DTaP,Tdap,Td Vaccine (1 - Tdap)2019Hepatitis B Vaccine (1 of 3 - 19+ 3- dose series)2019Cervical Cancer Flcqqxshc68/23/2022Covid-19 Vaccine (2024- season)2025Influenza Vaccine (#1)2025 Insurance Care Teams Team MemberRelationshipSpecialtyStart DateEnd Todd José MD PCP - GeneralFamily Ghgjnpzw50/15/19 A, Hvi Card Consult [address] [place] [address] TzzwxatrziPizjimannd48/30/19 Robert Weiss DO [address] [place], [place] [id number] Primary Staff PhysicianCardiology11/27/19 Claudia @ [facility]. Community Emyirrxh16/5/19
--- OUTSIDE RECORDS SUMMARY | 2025-04-24 17:52 | XMS_ITS | Clinical Summary ---
Author Organization [facility] Address [address] [place] [address] Care Team Providers Care Fiberglass Tube Molder Name Role Phone Todd José MD Primary Care Provider [phone] Allergies Active AllergyReactionsCriticalityNoted DqqlIvalyaqcReuyo56/16/2025 NO LIQUID MEDS Penicillin GSwelling,Mflidch6002/15/2023 Medications MedicationSigDispense QuantityRefillsLast FilledStart DateEnd DateStatus clotrimazole-betamethasone (Lotrisone) cream Indications:Other infective chronic otitis externa of left earApply to left ear twice daily for 10 days 15 g 5Active etonogestrel-ethinyl estradiol (NuvaRing) 0.12-0.015 MG/24HR vaginal ring Indications: control counselingInsert vaginally and leave in place for 21 consecutive days (3 weeks), then remove. Wait for 7 daysbefore inserting new ring. 1 each 5ActiveHospital, Clinic, or Other Facility Administered Medication Ordered DoseRouteFrequencyStart DateEnd DateStatus Levonorgestrel intrauterine device 52 mg Indications:Encounter for insertion of Mirena IUD52 zhMEIvzlcyuehk65/17/2025 08/26/2029Active Active Problems ProblemNoted DateDiagnosed DateCyst of left ovary08/22/2024Right ovarian cyst 08/22/2024Left lower quadrant abdominal pain08/22/2024Pelvic pain08/22/2024 Tuberculosis of vertebral jygpdb6808/22/2024Vaginal rjrkygsgc41/16/2025History of ovarian cyst06/28/2024Elevated yaifnxjl87/01/2019Other chest pain05/13/2019 Seizure-like cxinntoe77/30/2019Chronic /10/2019 Overview (08/22/2024): mri brain normal 2018 Postural orthostatic tachycardia /10/2019 Overview (08/22/2024): Was diagnosed at [facility] of unspecified infectious and parasitic zgmnwxw8003/22/2019 Overview (08/22/2024): POTS Yxobtpe6203/16/2019 Encounters DateTypeDepartmentCare BwrhKwxnovhpnpw11/22/2025 2:00 PM EDTOffice Visit [facility] [address] [address] Nikhil Francis, control counseling (Primary Dx); Pain of ovary; Fzdetgff47/22/2025Bamboo flowsheet [facility] [address] [address] Nikhil Francis, DO 02/14/2025bstract [facility] [address] [place] [address] Nikhil Francis, DO 02/14/2025bstract [facility] [address] [place] [address] Nikhil Fracnis, DO 02/14/2025bstract [facility] [address] [place] [address] Nikky Ronquillo MA 5Clinisync Result Encounter [facility] External Department Unsolicited Nikhil Francis, DO 5Abstract [facility] [address] [place] [address] Dolce, Wicho R, DPM FACFAS from Last 3 Months Social History Tobacco UseTypesPacks/DayYears UsedDateSmoking Tobacco: NeverSmokeless Tobacco: Never Tobacco Cessation:Counseling Given: Yes Alcohol UseStandard Drinks/WeekCommentsYes0 (1 standard drink = 0.6 oz pure alcohol)socialCommentsNoSex and Gender InformationValueDate RecordedSex Assigned at PyaerXljzsr19/29/2023 9:31 AM EDTLegal NaiOemztz95/15/2023 7:07 PM EDTGender VfifzsqlGtnvde94/29/2023 9:31 AM EDTSexual OrientationNot on file Last Filed Vital Signs Vital SignReadingTime TakenCommentsBlood Vcivfwcw898/6809 2:06 PM EDT Hhvdn659205/17/2024 4:30 PM ESTTemperature--Respiratory Rate--Oxygen Saturation-- Inhaled Oxygen Concentration--Cocnuu42.9 kg (132 lb)03/04/2025 2:06 PM EDTHeight 165.1 cm (5' 5 )03/04/2025 2:06 PM EDTBody Mass Index21.9703/04/2025 2:06 PM EDT Plan of Treatment Not on file Procedures Procedure NamePriorityDate/TimeAssociated DiagnosisCommentsPOCT , URINE Xxzylsi8603/04/2025 2:52 PM EDT Spotting POCT URINALYSIS ZWKCBHHIPdpajko64/22/2025 2:21 PM EDT Spotting US PELVIS RKJUXBZFGXAG65/04/2025 11:32 AM EDT from Last 3 Months Results * POCT , urine manually resulted (03/04/2025 2:52 PM EDT)ComponentValue Ref RangeTest MethodAnalysis TimePerformed AtPathologist SignaturePreg Test, UrNegativeNegativeSpecimen (Source)Anatomical Location / LateralityCollection Method / VolumeCollection TimeReceived HpbvCsnpa61/22/2025 2:52 PM EDT Narrative Authorizing ProviderResult TypeResult StatusCorey Asif DOPOINT OF CARE TEST ENTER/EDIT ORDERABLESFinal Result * (ABNORMAL) POCT urinalysis dipstick manually resulted (03/04/2025 2:21 PM EDT) ComponentValueRef RangeTest MethodAnalysis TimePerformed AtPathologist SignatureColor, UAYellowClarity, UAClearGlucose, UANegativeNegative - 2000(110) ++++ mg/dLBilirubin, UANegativeNegative - 4(70) +++ mg/dLKetones, UA NegativeNegative - 160(16) ++++ mg/dLSpec Grav, UA1.0151 - 1.03Blood, UA PositiveNegative - 50 Tristan/mcLpH, UA6.55 - 9Protein, UANegativeNegative - 2000(20) ++++ mg/dLUrobilinogen, UA1.00.2 - 12 mg/dLLeukocytes, UANegative Negative - 500+++ Manjinder/mcLNitrite, UANegativeNegative - PositiveSpecimen (Source)Anatomical Location / LateralityCollection Method / VolumeCollection TimeReceived AhemTqogu65/22/2025 2:21 PM EDT Narrative Authorizing ProviderResult TypeResult StatusCorey Asif DOPOINT OF CARE TEST ENTER/EDIT ORDERABLESFinal Result * US PELVIS TRANSVAGINAL (02/14/2025 11:32 AM EDT)Anatomical RegionLaterality ModalityOtherSpecimen (Source)Anatomical Location / LateralityCollection Method / VolumeCollection TimeReceived Time02/14/2025 11:32 AM EDT Narrative 02/14/2025 11:34 AM EDT [facility] ?[address] ? [place] [address] ? Ultrasound Report ? Signed ? Patient: FADIA LAN ? MR#: [id number] ?? : 2000 ?Acct:[id number] ?? Age/Sex: 24 / F ?ADM Date: 02/14/25 ?? Loc: US ? Attending Dr: Nikhil Francis D.O. ? Ordering Physician: Nikhil Francis D.O. ?? Date of Service: 02/14/25 ?? Procedure(s): US pelvis transvaginal ?? Accession Number(s): [id number] ? cc: Nikhil Francis D.O.; Todd José M.D. ? [facility] ? [address] ? [place] [address] ? Patient Name: ?? FADIA LAN ? MRN: [facility]:[id number] ? date: 2000 ?Sex: F ?? Assigned Patient Location: US ?? Current Patient Location: US ?? Accession/Order Number: [id number] ?? Exam Date: 02/14/2025 ??11:00 ?Report Date: 02/14/2025 ??11:32 ? At the request of: ?? NIKHIL ??ASIF ??DO ? Procedure: ??US pelvis transvaginal ? ULTRASOUND PELVIS TRANSVAGINAL ? COMPARISON: 10/12/[address] ? CLINICAL DATA: Cramping for the past few days. ??History of right oophorectomy ?? and IUD. ? Real-time ultrasound evaluation pelvis was performed utilizing a transvaginal ?? approach. ? Estimated uterine size is approximately 8.1 x 6.2 x 4.1 cm. ??No focal ?? myometrial abnormalities are identified. ??The endometrial lining is estimated ?? at 7 mm. ??The IUD is visualized in appropriate position. ??The right ovary is ?? surgically absent. ??The left ovary measures 3.7 x 2.3 x 2.4 cm. ??There are ?? follicles measuring up to 11 mm in size. ??No dominant adnexal cysts are seen. ? There is documentation of ovarian blood flow with resistive index of 0.6. ??No ?? free fluid is identified. ? US/US pelvis transvaginal ?? IMPRESSION: ? APPROPRIATE POSITION OF IUD. ? NO DOMINANT ADNEXAL CYSTS OR OTHER ACUTE FINDINGS. ? Impression dictated by: Edita Jarvis M.D. ??02/14/2025 11:32 AM ? Dictation Location: RADIO-PC-30 ? Electronically authenticated by: [id number] ??Y ?? Date: 02/14/2025 ??11:32 ? Dictated By: ?Edita Jarvis M.D. ? Signed By: ?02/14/25 1134 ? DD/ 1132 ? TD/TT: ? Loom Checker: Procedure Note Radiology, Radiologist, MD - 02/14/2025 [place] [address] Ultrasound Report Signed Patient: FADIA LAN JMR#: [id number] : 2000Acct:[id number] Age/Sex: 24 / FADM Date: 02/14/25 Loc: US Attending Dr: Nikhil Francis D.O. Ordering Physician: Nikhil Francis D.O. Date of Service: 02/14/25 Procedure(s): US pelvis transvaginal Accession Number(s): [id number] cc: Nikhil Francis D.O.; Todd José M.D. [place] [address] Patient Name: FADIA LAN MRN: [id number] date: 2000 Sex: F Assigned Patient Location: US Current Patient Location: US Accession/Order Number: [id number] Exam Date: 02/14/2025 11:00 Report Date: 02/14/2025 11:32 At the request of: NIKHIL FRANCIS DO Procedure: US pelvis transvaginal ULTRASOUND PELVIS TRANSVAGINAL COMPARISON: 10/12/[address] CLINICAL DATA: Cramping for the past few days. History of rightoophorectomy and IUD. Real-time ultrasound evaluation pelvis was performed utilizing atransvaginal approach. Estimated uterine size is approximately 8.1 x 6.2 x 4.1 cm. No focal myometrial abnormalities are identified. The endometrial lining isestimated at 7 mm. The IUD is visualized in appropriate position. The right ovaryis surgically absent. The left ovary measures 3.7 x 2.3 x 2.4 cm. There are follicles measuring up to 11 mm in size. No dominant adnexal cysts areseen. There is documentation of ovarian blood flow with resistive index of 0.6.No free fluid is identified. US/US pelvis transvaginal IMPRESSION: APPROPRIATE POSITION OF IUD. NO DOMINANT ADNEXAL CYSTS OR OTHER ACUTE FINDINGS. Impression dictated by: Edita Jarvis M.D. 02/14/2025 11:32 AM Dictation Location: [place] [address] Electronically authenticated by: [id number] Y Date: :32 Dictated By: Edita Jarvis M.D. Signed By:02/14/25 1134 DD/ 1132 TD/TT: Loom Checker: Authorizing ProviderResult TypeResult StatusCorey Asif DOCLINISYNC IMAGINGFinal Result from Last 3 Months Insurance Care Teams Team MemberRelationshipSpecialtyStart DateEnd Date Todd José MD [address] [place] [address] [facility]02/15/23
--- OUTSIDE RECORDS SUMMARY | 2025-04-24 17:53 | XMS_ITS | Clinical Summary ---
Author Organization [facility] Address [address], [address] [place] [address] Care Team Providers Care Book Packer Name Role Phone Todd José MD Primary Care Provider [phone] Allergies No known active allergies Medications MedicationSigDispense QuantityRefillsLast FilledStart DateEnd DateStatus 07/02 1-20 MG-MCG per tablet TAKE 1 TABLET BY MOUTH EVERY DAY 28 tablet 03/20/2021ctive Active Problems ProblemNoted DateDiagnosed DatePelvic painRight ovarian cyst Social History Tobacco UseTypesPacks/DayYears UsedDateSmoking Tobacco: NeverSmokeless Tobacco: NeverAlcohol UseStandard Drinks/WeekCommentsNever0 (1 standard drink = 0.6 oz pure alcohol)AUDIT-CAnswerDate RecordedQ1: How often do you have a drink containing alcohol?Never1Average Number of DrinksNot on file10/10/2020 Frequency of Binge DrinkingNot on file10/10/2020HQ-2AnswerDate RecordedPHQ-9 Total Jnssu051CommentsNoSex and Gender InformationValueDate RecordedSex Assigned at BirthNot on fileLegal UaxSrgmrm45/30/2021 12:57 PM EDT Gender IdentityNot on fileSexual OrientationNot on file Last Filed Vital Signs Vital SignReadingTime TakenCommentsBlood Ijvxolfz554/7205 2:13 PM EDT Qzrde6524 9:15 PM JVLYovskwdoirg05.1 ??C (98.7 ??F)10/10/2020 7:12 PM EDTRespiratory Fgdv491810/10/2020 9:15 PM EDTOxygen Txkwtgtugy56%10/10/2020 9:15 PM EDTInhaled Oxygen Concentration--Prgwdf30.1 kg (117 lb)11/04/2020 2:13 PM EDT Bzeiun801.1 cm (5' 5 )11/04/2020 2:13 PM EDTBody Mass Index19.47011/04/2020 2:13 PM EDT Plan of Treatment Not on file Insurance Care Teams Team MemberRelationshipSpecialtyStart Date Todd José MD [address] [place] [address] PCP - GeneralFamily Medicine10/10/20
--- OUTSIDE RECORDS SUMMARY | 2025-04-24 17:53 | XMS_ITS | Encounter Summary ---
Author Organization [facility] Address [address] [place] [address] Care Team Providers Care Customer Sales Specialist Name Role Phone Todd José MD Primary Care Provider [phone] Encounter Details DateTypeDepartmentCare Team (Latest Contact Info)Hnljgnlajub22/25/2024Clinisync Result Encounter [facility] External Department Unsolicited Nikhil Francis, DO [address] [place] [id number] Social History Tobacco UseTypesPacks/DayYears UsedDateSmoking Tobacco: Never Assessed CommentsNoSex and Gender InformationValueDate RecordedSex Assigned at Hcpdrf3002/08/2023 9:31 AM EDTLegal ZhaMgzehe18/15/2023 7:07 PM EDTGender Identity Ndwksd2002/08/2023 9:31 AM EDTSexual OrientationNot on filedocumented as of this encounter Plan of Treatment Not on file documented as of this encounter Procedures Procedure NamePriorityDate/TimeAssociated DiagnosisCommentsUS PELVIS W/ ZFVAATKAFLFD60/25/2024 7:31 AM EDT documented in this encounter Results * US PELVIS W/ TRANSVAGINAL (09/05/2023 7:31 AM EDT)Anatomical RegionLaterality ModalityOtherSpecimen (Source)Anatomical Location / LateralityCollection Method / VolumeCollection TimeReceived Time09/05/2023 7:31 AM EDT Narrative 09/05/2023 7:33 AM EDT [facility] ?[address] ? [place] [address] ? Ultrasound Report ? Signed ? Patient: SAAM,FADIA J ? MR#: [id number] ?? : 2000 ?Acct:[id number] ?? Age/Sex: 23 / F ?ADM Date: 03/22/24 ?? Loc: US ? Attending Dr: Nikhil Francis D.O. ? Ordering Physician: Nikhil Francis D.O. ?? Date of Service: 09/02/23 ?? Procedure(s): US pelvis w/ transvaginal ?? Accession Number(s): [id number] ? cc: Nikhil Francis D.O.; Todd José M.D. ? [facility] ? [address] ? [place] [address] ? Patient Name: ?? FADIA LAN ? MRN: [facility]:[id number] ? date: 2000 ?Sex: F ?? Assigned Patient Location: US ?? Current Patient Location: ? Accession/Order Number: [id number] ?? Exam Date: 09/02/2023 ??16:07 ?Report Date: 09/05/2023 ??07:31 ? At the request of: ?? NIKHIL ??ASIF ? Procedure: ??US pelvis w/ transvaginal ? EXAMINATION: US pelvis w/ transvaginal ? HISTORY: RIGHT SIDED ABDOMINAL PAIN R10.9 ? COMPARISON: No relevant comparison available. ? FINDINGS: ? Uterus is normal in size, contour and echotexture measuring 7.0 x 3.0 x 4.4 ?? cm, ?? retroverted. ? Linear hyperechogenicity identified within the endometrial cavity, normally ?? positioned IUD ? The endometrium measures 5.6 mm, normal. ? The right ovary is not visualized consistent with provided history of ?? hysterectomy ? Left ovary measures 5.1 x 2.7 x 3.2 cm. Normal color and Doppler flow. 3.2 cm ?? area of anechoic echogenicity slightly irregular lama with no definite ?? internal echoes ? Small amount of free fluid in the pelvic cul-de-sac likely physiologic ? US/US pelvis w/ transvaginal ?? IMPRESSION: ? Normal position of IUD ? 3.2 cm left ovarian simple cyst ? Electronically authenticated by: KRISTEN ??SHUN ?? Date: 09/05/2023 ??07:31 ? Dictated By: ?Kristen Hoffmann M.D. ? Signed By: ?09/05/23732 ? DD/ 0 ? TD/TT: ? Web Press Operator Assistant: Procedure Note Radiology, Radiologist, - 09/05/2023 [place] [address] Ultrasound Report Signed Patient: FADIA LAN JMR#: [id number] : 2000Acct:[id number] Age/Sex: FAD Date: 09/02/23 Loc: US Attending Dr: Nikhil Francis D.O. Ordering Physician: Nikhil Francis D.O. Date of Service: 09/02/23 Procedure(s): US pelvis w/ transvaginal Accession Number(s): [id number] cc: Nikhil Francis D.O.; Todd José M.D. The [address] [address] Patient Name: FADIA LAN MRN: [id number] date: 2000 Sex: F Assigned Patient Location: US Current Patient Location: Accession/Order Number: [id number] Exam Date: 09/02/2023 16:07 Report Date: 09/05/2023 [...] 07:31 Dictated By: Kristen Hoffmann M.D. Signed By:09/05/2333 DD/ TD/TT: Web Press Operator Assistant: Authorizing ProviderResult TypeResult StatusCorey Asif DOCLINISYNC IMAGINGFinal Result documented in this encounter Visit Diagnoses Not on filedocumented in this encounter Care Teams Team MemberRelationshipSpecialtyStart DateEnd Date Todd José MD [address] [place] [address] PCP - GeneralFamily Medicine02/15/23documented as of this encounter
--- OUTSIDE RECORDS SUMMARY | 2025-04-24 17:53 | XMS_ITS | Encounter Summary ---
Author Organization [facility] Address [address] [place] [address] Care Team Providers Care Core Fitter Name Role Phone Todd José MD Primary Care Provider [phone] Encounter Details DateTypeDepartmentCare Team (Latest Contact Info)Chozhyukwdu83/06/2024Clinisync Result Encounter [facility] Unsolicited Nikhil Francis, DO [address] [place] [phone] Social History Tobacco UseTypesPacks/DayYears UsedDateSmoking Tobacco: Never Assessed CommentsNoSex and Gender InformationValueDate RecordedSex Assigned at Vtvudq2202/08/2023 9:31 AM EDTLegal IfcCycfvm12/15/2023 7:07 PM EDTGender Identity Oaaspa4702/08/2023 9:31 AM EDTSexual OrientationNot on filedocumented as of this encounter Plan of Treatment Not on file documented as of this encounter Procedures Procedure NamePriorityDate/TimeAssociated DiagnosisCommentsUS PELVIS W/ VPNLKWNRTKIJ00/06/2024 1:51 PM EDT documented in this encounter Results * US PELVIS W/ TRANSVAGINAL (10/17/2023 1:51 PM EDT)Anatomical RegionLaterality ModalityOtherSpecimen (Source)Anatomical Location / LateralityCollection Method / VolumeCollection TimeReceived Time10/17/2023 1:51 PM EDT Narrative 10/17/2023 1:53 PM EDT [facility] ?[address] ? [place] [address] ? Ultrasound Report ? Signed ? Patient: SAAM,FADIA J ? MR#: [id number] ?? : 2000 ?Acct:[id number] ?? Age/Sex: 23 / F ?ADM Date: 05/06/24 ?? Loc[facility] ? Attending Dr: Nikhil Francis D.O. ? Ordering Physician: Nikhil Francis D.O. ?? Date of Service: 10/17/23 ?? Procedure(s): US pelvis w/ transvaginal ?? Accession Number(s): [id number] ? cc: Nikhil Francis D.O.; Todd José M.D. ? [facility] ? [address] ? [place] [address] ? Patient Name: ?? FADIA LAN ? MRN: [facility]:[id number] ? date: 2000 ?Sex: F ?? Assigned [facility] ?? Current [facility] ?? Accession/Order Number: [id number] ?? Exam Date: 10/17/2023 ??13:00 ?Report Date: 10/17/2023 ??13:51 ? At the request of: ?? NIKHIL ??ASIF ? Procedure: ??US pelvis w/ transvaginal ? EXAMINATION: US pelvis w/ transvaginal ? HISTORY: Left ovarian cyst follow up N83.202 ? COMPARISON: No relevant comparison available. ? FINDINGS: ? The uterus is normal in size, contour and myometrial echotexture measuring 7.7 ? x 6.0 x 4.3 cm. The uterus is anteverted. No focal myometrial mass. ? The endometrium measures 2.5 mm, normal. ? The right ovary is surgically absent ? The left ovary measures 3.9 x 2.2 x 2.4 cm. Normal color Doppler flow. Cystic ?? area measuring 1.9 x 1.8 x 1.7 cm with peripheral soft tissue signal in ?? central ?? low-level echoes. ? Small amount of fluid in the pelvic cul-de-sac, physiologic in amount ? US/US pelvis w/ transvaginal ?? IMPRESSION: ? Persistent cystic lesion of the left ovary measuring 1.9 cm. This could ?? represent a functional cyst or complex cyst ? Electronically authenticated by: KRISTEN ??SHUN ?? Date: 10/17/2023 ??13:51 ? Dictated By: ?Kristen Hoffmann M.D. ? Signed By: ?10/17/231352 ? DD/ 50 ? TD/TT: ? Ornament Stitcher: Procedure Note Radiology, Radiologist, - 10/17/2023 [place] [address] Ultrasound Report Signed Patient: FADIA LAN JMR#: [id number] : 2000Acct:[id number] Age/Sex: Date: 10/17/23 Loc: [facility] Attending Dr: Nikhil Francis D.O. Ordering Physician: Nikhil Francis D.O. Date of Service: 10/17/23 Procedure(s): US pelvis w/ transvaginal Accession Number(s): [id number] cc: Nikhil Francis D.O.; Todd José M.D. The [place] [phone] Patient Name: FADIA LAN MRN: [id number] date: 2000 Sex: F Assigned Patient Location: [facility] Current Patient Location: [facility] Accession/Order Number: [id number] Exam Date: 10/17/2023 13:00 Report Date: 10/17/2023 [...] M.D. Signed By:10/17/23 1353 DD/ 1351 TD/TT: Ornament Stitcher: Authorizing ProviderResult TypeResult StatusCorey Asif DOCLINISYNC IMAGINGFinal Result documented in this encounter Visit Diagnoses Not on filedocumented in this encounter Care Teams Team MemberRelationshipSpecialtyStart DateEnd Date Todd José MD [address] [place] [address] PCP - GeneralFamily Medicine02/15/23documented as of this encounter
--- NOTE | 2025-04-24 17:59 | XR_ITS ---
The [address] [address] Patient Name: GONZALEZ SHANKAR MRN: [id number] date: 2000 Sex: F Assigned Patient Location: [facility] Current Patient Location: Accession/Order Number: [id number] Exam Date: 04/24/2025 18:02 Report Date: 04/25/2025 08:40 At the request of: DANILO DINERO MD Procedure: XR ankle LT 2V LEFT ANKLE - 2 views CLINICAL DATA: Left anterior ankle pain. No injury. COMPARISON: None AP and lateral views were obtained. There is no evidence of fracture or dislocation. There are no significant soft tissue abnormalities. XR/XR ankle LT 2V IMPRESSION: NO ACUTE BONY FINDINGS. Impression dictated by: Edita Jarvis M.D. 04/25/2025 8:40 AM Dictation Location: [place] [address] Electronically authenticated by: [id number] Y Date: 04/25/2025 08:40
== END 2025-04-24 17:46 | disposition home or self-care (01) ==
PROVIDERS: PCP Family Medicine; Visit Provider Family Medicine
DX: M25.572 Pain in left ankle and joints of left foot (principal)
CPT/HCPCS: 73600